=== PATIENT | female | born 1950 | race Caucasian/White ===

== ENCOUNTER → 2019-04-21 15:39 | Outpatient (CLI) | payer MEDICARE, SELFPAY ==
--- NOTE | 2019-04-21 15:47 | CT_ITS ---
STUDY: CT ABDOMEN AND PELVIS WITH CONTRAST REASON FOR EXAM: Female, 68 years old. Possible bladder mass. RADIATION DOSAGE (If Supplied By Facility): CTDIvol = ( 16.73 ) mGy, DLP = ( 1781.39 ) mGycm TECHNIQUE: Transaxial images were obtained from the dome of the diaphragm to the symphysis pubis without oral contrast. 100 IV Isovue 300 was administered. Sagittal and coronal images were reconstructed. Individualized dose optimization techniques were used for this CT. COMPARISON: April 12, 2019 FINDINGS: The visualized lung bases are unremarkable. The visualized portions of the heart are within normal limits. Normal liver. Normal gallbladder and extrahepatic biliary system. Normal spleen. Normal pancreas. There is a 2.5 cm round low attenuation left adrenal nodule that has a Hounsfield units of 8 on the nonenhanced images. There is persistent right sided hydroureteronephrosis with delayed excretion of the right kidney. There is a 3.3 x 4.8 x 3.6 cm high attenuation filling defect within the posterior urinary bladder right of midline. There are associated nodular enhancing filling defect within the urinary bladder. There is bladder wall thickening. There is stranding within the fat anterior to the urinary bladder. There is left-sided hydroureteronephrosis, less pronounced in the right. There is a right renal cyst. Normal visualized stomach. Normal small intestine. Normal colon. There is non-visualization of the appendix. There are peripheral calcifications of the abdominal aorta consistent with atherosclerosis. Normal inferior vena cava. There are prominent and borderline enlarged retroperitoneal lymph nodes. Normal urinary bladder. Normal abdominal wall. There are diffuse degenerative changes of the visualized lumbar spine. CT/Abdomen/Pelvis W IV Cont ONLY IMPRESSION: Rounded filling defect within the posterior urinary bladder right of midline highly suspicious for an underlying malignancy associated with right-sided hydroureteronephrosis and less pronounced left hydroureteronephrosis. Prominent and enlarged retroperitoneal lymph nodes, may be reactive however neoplastic process cannot be entirely excluded. Atherosclerosis. Prominent left adrenal gland, may be secondary to an underlying adrenal adenoma however underlying neoplastic involvement cannot be entirely excluded Electronically Signed: Renuka Rossi MD at 16:52 EDT Tel , Service support ,
[2019-04-21 16:15] LABS: CREATININE FINGERSTICK 1.2 mg/dL (0.55-1.02)
== END ==
LOC: CT 15:45
PROVIDERS: Family Provider Family Medicine; PCP Family Medicine; Referring Provider Urology; Visit Provider Urology
DX: D41.4 Neoplasm of uncertain behavior of bladder (principal)
CPT/HCPCS: 74177; Q9967; A4216

== ENCOUNTER 2019-04-23 05:49 | Day surgery (SDC) | payer MEDICARE, SELFPAY ==
[2019-04-23 07:11] VITALS: BP 148/70; PULSE 87; RESP 18; TEMP 36.1; O2SAT 97; BMI 76.1
[2019-04-23] MEDS: Lactated Ringers 1,000 ML 100 ML IV (07:39)
[2019-04-23 07:52] VITALS: BMI 34.5
--- NOTE | 2019-04-23 08:52 | EKG12_ITS ---
Test Reason : PRE OP Blood Pressure : / mmHG Vent. Rate : 075 BPM Atrial Rate : 075 BPM P-R Int : 164 ms QRS Dur : 150 ms QT Int : 456 ms P-R-T Axes : 059 092 075 degrees QTc Int : 509 ms Normal sinus rhythm Right bundle branch block Abnormal ECG Confirmed by FITO GÓMEZ, KENNY ([id number]), editorial assistant CECE HATHAWAY ([id number]) on 04/28/2019 11:17:15 AM Referred By: Stuart Marino Confirmed By:KENNY PAYTON MD
[2019-04-23 09:25] LABS: Hematocrit 35.4 % (37-47); Hemoglobin 11.3 g/dL (12.0-15.0); Mean Corp Hgb Conc 31.9 g/dL (32-36); Mean Corpuscular Hgb 28.9 pg (27.0-32.0); Mean Corpuscular Volume 90.5 fL (81-99); Mean Platelet Vol. 9.4 fl (6.2-12.0); Platelet Count 219 K/mm3 (150-450); RBC Distribution Width CV 14.6 % (11.6-14.6); RBC Distribution Width SD 48.2 fl (35.1-43.9); Red Blood Count 3.91 M/mm3 (4.2-5.4); White Blood Count 11.3 K/mm3 (4.4-11.0)
[2019-04-23 09:57] LABS: ALB/GLOB Ratio 0.5 RATIO (0.9-2.4); AST(SGOT) 10 U/L (15-37); Alanine Aminotransfer ALT/SGPT 8 U/L (13-56); Albumin, Serum 2.5 g/dL (3.2-5.0); Alkaline Phosphatase 78 U/L (45-117); Anion Gap 8 (5-15); BUN 11 mg/dL (7-18); BUN/Creat Ratio 9.8 RATIO (10-20); Calcium,Total 8.4 mg/dL (8.5-10.1); Chloride 109 mmol/L (98-107); Creatinine, Serum 1.12 mg/dL (0.55-1.02); EST Glomerular Filtration Rate 51 mL/min (>60); Est Glom Filt Rate - Afr Amer 62 mL/min (>60); Estimated Creatinine Clearance 58.05 ml/min; Globulin 5.1 g/dL (2.2-4.2); Glucose 108 mg/dL (74-106); Potassium 3.4 mmol/L (3.5-5.1); Protein, Total 7.6 g/dL (6.4-8.2); Sodium Level 141 mmol/L (136-145)
--- NOTE | 2019-04-23 12:00 | BLB_PTH ---
PATIENT: XOCHITL [place]ORENO [place] [facility] [id number] AGE/SX: 68/F ROOM: RE04/23/[address]: Dr. Stuart Marino MD : 1950 BED: DIS: 04/23/2019 SPEC #: [id number] RECD: 04/23/19 14:17 STATUS: NATALY REErica #: [id number] KEEGAN: 04/23/19 12:[address]: Stuart Marino DEPT: SURGICAL PATHOLOGY RECD BY: Moose Rasheed ENTERED: 04/26/19 12:09 SP TYPE: TURB OTHR DR: Dr. José Miguel Guajardo, DO Tissues: Urinary bladder, NOS Procedures: Surgery Specimen Level V HEADER OPERATION: Cyst, TUR bladder, Olympus PRE-OP DIAGNOSIS: Neoplasm of bladder; gross hematuria TISSUE SUBMITTED: Bladder resection MICROSCOPIC DIAGNOSIS Bladder tumor, TUR: Papillary urothelial carcinoma with focal necrosis. See cancer summary below. SJ:desi 04/27/19 BLADDER CANCER (TUR) SUMMARY: Procedure - TURBT Histologic type - urothelial (transitional cell) carcinoma Associated epithelial lesions - none identified Histologic grade - urothelial carcinoma (WHO 2004/ISUP) - high grade (3/3) Tumor configuration - papillary Adequacy of material for determining muscularis propria invasion - muscularis propria (detrusor muscle) is not identified. Lymph-Vascular invasion - not identified Microscopic extent of tumor - tumor invades subepithelial connective tissue (lamina propria). Additional pathologic findings - Focal tumor necrosis. The above summary is in compliance with [employer] [place] [employer] (CAP) Cancer Protocols Checklist and [place] Joint Committee on Cancer (AJCC), Staging Manual, 8th Ed. COMMENT Case has been reviewed in consultation with Dr. Huynh who concurs with the above diagnosis. IDC:AM MICROSCOPIC DESCRIPTION Slides are reviewed. GROSS DESCRIPTION Received in fixative is one container labeled with the patient's name and designated bladder resection. The specimen consists of multiple irregular fragments of de guzman-brown soft tissue that in aggregate measure 3 x 2.5 x 0.3 cm. The entire specimen is submitted in one cassette. / PRAFUL:desi 04/26/19 TC:0 CPT: 44278
[2019-04-23] MEDS: Cefazolin 2 GM in 0.9% Normal Saline 100 ML IV (12:05)
--- NOTE | 2019-04-23 12:34 | PCM.DC.URO ---
Discharge Diet: Light diet - advance as tolerated Discharge Activity: Return to Normal Activity Call your doctor if your incision/area has: Sudden Increased Bleeding Call your doctor if you observe: Fever of 101 or Higher Suture Line Care: Avoid Pulling/Pushing, Avoid Pinching/Bending Allergies/Adverse Reactions: Allergies Penicillins Allergy (Verified 04/22/19 12:12) Unknown Medications to take at Discharge Acetaminophen [Tylenol Extra Strength] 500 - 1,000 mg PO Q6H PRN PRN 04/22/19 Albuterol Inhaler [Ventolin Hfa (SP)] 1 - 2 puff INHALATION Q4H PRN PRN 04/22/19 Dextroamphetamine/Amphetamine [Dextroamp-Amphetamin 15 mg Tab] 15 mg PO TID 04/22/19 Ergocalciferol [Vitamin D] 50,000 unit PO Q7D 04/22/19 Furosemide [Lasix] 40 mg PO PRN PRN 04/22/19 [place]-3 Fatty Acids/Fish Oil [Fish Oil 1,000 mg Capsule] 1 ea PO DAILY 04/22/19 traMADol [Ultram (G)] 100 mg PO BID 04/22/19 Ciprofloxacin [Cipro] 500 mg PO BID #6 tab 04/23/19 Oxycodone HCl/Acetaminophen [Percocet 5/325] 1 tab PO Q4H PRN PRN #20 tab 04/23/19 The following prescriptions were given: Ciprofloxacin [Cipro] 500 mg PO BID #6 tab Prescription Printed Oxycodone HCl/Acetaminophen [Percocet 5/325] 1 tab PO Q4H PRN PRN #20 tab PRN Reason: Pain Prescription Printed Primary Care Physician: José Miguel Guajardo DO [Primary Care Provider] - Test Results: Test results from this visit will be discussed in further detail at your follow-up appointment, if applicable. Please Follow Up With: Stuart Marino MD When: in 2 weeks, please call to make an appointment.
--- NOTE | 2019-04-23 12:36 | PCM.OPRPT ---
Report of Operation Date of Procedure: 04/23/19 Pre-Operative Diagnosis: Large bladder mass suspected bladder cancer Post-Operative Diagnosis: Same Surgery/Procedure Performed:: Transurethral resection of a very large bladder mass Description of Surgical Findings:: 68-year-old female with a history of gross bleeding and pain in the bladder and incontinence for the past month if not longer she presents to the office for a evaluation cystoscopy evaluation in the bladder demonstrated a large mass we did a CAT scan demonstrated a large mass appears to be invasive today we will do a cystoscopy transurethral resection establish diagnosis I think eventually she is going to need more definitive treatment such as a radical cystectomy for treatment of his bladder cancer this is what I suspect she has today we will do a resection to establish diagnosis. 68-year-old female taken back to the operating room after smooth induction of general anesthesia she was placed in dorsolithotomy position went into the bladder with a 26 [place]bourg[place] continuous-flow resectoscope immediately entering the bladder there was a large mass that was protruding right into the way of the bladder there was occupying the entire lumen of the bladder was this mass I resected deep bites into the mass and sent off this for tissue specimen and then I cauterized the resection site to get the bleeding to stop as much as possible. Then after resection of the mass was done certainly was not a complete resection I suspect she is getting more definitive the treatment. I emptied the bladder and taken back to PACU in good condition she will follow-up next week to review the pathology. Despite need to work-up further for the bone scan to evaluate the bones. Type of Anesthesia:: General - Admit VTE Documentation VTE Present on Admission: No VTE Mechan Device Prophylaxis: SCD's
[2019-04-23 12:41] VITALS: BP 141/68; BP 148/70; PULSE 82; RESP 18; TEMP 36.8; O2SAT 92
[2019-04-23 12:45] VITALS: BP 141/66; BP 148/70; PULSE 81; RESP 18; O2SAT 98
[2019-04-23 13:00] VITALS: BP 148/66; BP 148/70; PULSE 72; RESP 18; O2SAT 94
[2019-04-23 13:08] VITALS: BP 134/65; BP 148/70; PULSE 72; RESP 18; TEMP 36.7; O2SAT 96
[2019-04-23 14:12] VITALS: BP 148/70; BP 159/72; PULSE 78; RESP 18; TEMP 36.8; O2SAT 95
== END 2019-04-23 14:14 | disposition home or self-care (01) ==
LOC: SDC 06:47 → AC 06:52
PROVIDERS: Family Provider Family Medicine; PCP Family Medicine; Referring Provider Urology; Visit Provider Urology
PROC: 0TBB8ZZ Excision of Bladder, Via Natural or Artificial Opening Endoscopic (ICD-10-PCS; CPT 52240; principal; 2019-04-23 11:50)
DX: C67.9 Malignant neoplasm of bladder, unspecified (principal); N32.89 Other specified disorders of bladder; N13.39 Other hydronephrosis; R31.0 Gross hematuria; E78.00 Pure hypercholesterolemia, unspecified; G47.419 Narcolepsy without cataplexy; J44.9 Chronic obstructive pulmonary disease, unspecified; J45.998 Other asthma; F17.200 Nicotine dependence, unspecified, uncomplicated; Z79.899 Other long term (current) drug therapy
CPT/HCPCS: 00912; 52240; 80053; 85027; 86850; 86900; 86901; 88307; 93005; J7120; J2405

== ENCOUNTER → 2019-04-27 08:15 | Outpatient (CLI) | payer MEDICARE, SELFPAY ==
[2019-04-23 07:52] VITALS: BMI 34.5
--- NOTE | 2019-04-27 08:24 | NM_ITS ---
CLINICAL: 68-year-old female with reported history of primary uterine and bladder carcinoma. WHOLE BODY 99m Tc MDP RADIONUCLIDE BONE SCINTIGRAPHY COMPARISON: CT of the abdomen-pelvis report 04/21/2019 FINDINGS: Following the intravenous administration of 24.8 mCi of 99m Tc MDP, whole body bone images reveal: 1. Increased radiopharmaceutical concentration is identified in the medial tibial and to lesser extent medial femoral compartments of both knees, the bilateral hands, dorsal medial compartment of the right ankle, right-left midfoot. 2. The remaining skeletal structures are scintigraphically unremarkable with normal-appearing renal images and urinary bladder activity identified. NM/Bone Scan Whole Body IMPRESSION: 1. The increase in radiopharmaceutical concentration identified in the bilateral knees, right and left hands, right ankle, midfoot bilaterally is most consistent with degenerative arthritis. 2. There is no definitive typical scintigraphic evidence of diffuse axial skeletal metastatic disease on the current examination. Electronically Signed: Mitchell Rodriguez DO at 23:09 EDT Tel , Service support ,
== END ==
LOC: NM 08:16
PROVIDERS: Family Provider Family Medicine; PCP Family Medicine; Referring Provider Urology; Visit Provider Urology
DX: C67.9 Malignant neoplasm of bladder, unspecified (principal); C55 Malignant neoplasm of uterus, part unspecified
CPT/HCPCS: 78306

== ENCOUNTER 2019-05-10 13:31 | Day surgery (SDC) | payer MEDICARE, SELFPAY ==
[2019-05-05 08:54] VITALS: BMI 46.0
[2019-05-05 09:47] VITALS: BMI 46.0
[2019-05-10] VITALS (8 sets, daily range): BP systolic 98–159; BP diastolic 62–73; PULSE 69–76; RESP 15–16; TEMP 35.9–36.4; O2SAT 90–100; BMI 46.3
[2019-05-10] MEDS: Lactated Ringers 1,000 ML 100 ML IV (14:02)
--- NOTE | 2019-05-10 14:44 | HP.PCM_ITS ---
Problem List (1) Encounter for adjustment and management of vascular access device Status: Acute Comment: >5cm 04/23/19 History and Physical Date of Admission: 05/10/19 Intake Vital Signs 05/05/19 Body Mass Index (BMI) 46.0 05/05/19 Height 4 ft 11 in 05/05/19 Weight: 235 lb 6 oz 05/05/19 Body Mass Index (BMI) 47.5 05/05/19 Blood Pressure 181/73 H 05/05/19 Blood Pressure Location Lt brachial 05/05/19 Blood Pressure Position Standing 05/05/19 Respiratory Rate 22 H 05/05/19 Pulse Rate 89 05/05/19 Temperature 98.0 F 05/05/19 Temperature Source Oral 05/05/19 Pulse Ox 98 Intake Visit Reasons: Port Placement Chief Complaint: port consult Color Paste Mixing 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 Required: No Is patient in pain?: No Allergies Penicillins Allergy (Mild, Verified 05/05/19 08:53) rash Medications Acetaminophen [Tylenol Extra Strength] 500 - 1,000 mg PO Q6H PRN PRN 04/22/19 [History Confirmed 05/05/19] Albuterol Inhaler [Ventolin Hfa (SP)] 1 - 2 puff INHALATION Q4H PRN PRN 04/22/19 [History Confirmed 05/05/19] Dextroamphetamine/Amphetamine [Dextroamp-Amphetamin 15 mg Tab] 15 mg PO TID 04/22/19 [History Confirmed 05/05/19] Ergocalciferol [Vitamin D] 50,000 unit PO Q7D 04/22/19 [History Confirmed 05/05/19] Furosemide [Lasix] 40 mg PO PRN PRN 04/22/19 [History Confirmed 05/05/19] [place]-3 Fatty Acids/Fish Oil [Fish Oil 1,000 mg Capsule] 1 ea PO DAILY 04/22/19 [History Confirmed 05/05/19] traMADol [Ultram (G)] 100 mg PO BID 04/22/19 [History Confirmed 05/05/19] Ciprofloxacin [Cipro] 500 mg PO BID #20 tab 05/03/19 [Rx Confirmed 05/05/19] Oxycodone HCl/Acetaminophen [Percocet 5-325] 1 tab PO Q4H PRN PRN #60 tab 05/03/19 [Rx Confirmed 05/05/19] Is last menstrual period known: No Post menopausal: Yes Patient : No PFSH Medical History (Updated 05/05/19 @ 08:35 by Seble Kaur) Bladder mass (Acute) Gross hematuria (Acute) Other asthma (Acute) Other hydronephrosis (Acute) Smoking history (Acute) Urothelial carcinoma of bladder (Acute ~03/2019) Uterine cancer (Acute) COPD (chronic obstructive pulmonary disease) (Chronic) Surgical History (Updated 05/05/19 @ 08:35 by Seble Kaur) History of cystoscopy (Acute) History of hysterectomy (Acute) History of throat surgery (Acute) Transurethral resection of bladder tumor (Acute) Family History Brother Heart disease Aneurysm Mother Heart disease Cancer Father Cancer Social History (Updated 05/05/19 @ 09:23 by Danie Pacheco MD) Smoking Status: Current every day smoker HPI HPI HPI: XOCHITL TREVINO, is a 68 F who presents to the office today for HPI HPI HPI: XOCHITL TREVINO, is a 68 F who presents to the office today for chest port consult. Patient has bladder cancer needs chest port for chemotherapy. ROS General General: No weight change or fatigue Cardio Cardiovascular: No murmur, pacemaker, heart disease, atrial fibrillation, high blood pressure, heart attack, heart stent, palpitations, shortness of breat with exertion or chest pain Psych Psychiatric: No depression or anxiety Resp Respiratory: No shortness of breath, No sleep apnea, No cough, No COPD, No asth ma, No emphysema, No wheezing Gastro Gastrointestinal: No abdominal pain, No nausea or vomiting, No diarrhea, No constipation, No blood in stool, No acid reflux, No hemorrhoids, No ulcers, No gallbladder problem, No black,tarry stools [place] Hematologic: No blood thinners Exam Const General: cooperative Orientation: alert, oriented x3 Resp Effort & Inspection: normal respiratory effort Auscultation: clear to auscultation bilaterally Cardio Rate: regular rate Rhythm: regular rhythm Heart Sounds: no murmurs GI Inspection: non-distended Palpation: soft, nontender Assessment & Plan Problems 1. Malignant neoplasm of urinary bladder, unspecified site C67.9 2. Encounter for insertion of venous access port Z45.2 Plan The patient is requiring chest port for chemotherapy. I described chest port placement to the patient in detail. I described the risks including but not limited to bleeding, infection, pneumothorax, line infection, DVT. Patient understands risks and is willing to proceed with port placement. Danie Pacheco MD Pager: [facility] [address] [place] [address], [address] [place] [phone] Office:
--- NOTE | 2019-05-10 15:57 | PCM.DC.POR ---
Discharge Diet: No Restrictions - Pain medication may cause nausea. You should typically eat light foods as you take your pain medication. Discharge Activity: Return to Normal Activity, May Not Shower - with port accessed. May shower after needle removed after treatment Call your doctor if your incision/area has: Continuous Slow Oozing, Sudden Increased Bleeding, Increased Pain/ Swelling, Increased Redness Call your doctor if you observe: Fever of 101 or Higher Remove Dressing in (days):: 3 - When you remove the bandage, leave the steri-strips intact until they fall off. Allergies/Adverse Reactions: Allergies Penicillins Allergy (Mild, Verified 05/10/19 13:43) rash Medications to take at Discharge Acetaminophen [Tylenol Extra Strength] 500 - 1,000 mg PO Q6H PRN PRN 04/22/19 Albuterol Inhaler [Ventolin Hfa (SP)] 1 - 2 puff INHALATION Q4H PRN PRN 04/22/19 Dextroamphetamine/Amphetamine [Dextroamp-Amphetamin 15 mg Tab] 15 mg PO TID 04/22/19 Ergocalciferol [Vitamin D] 50,000 unit PO Q7D 04/22/19 Furosemide [Lasix] 40 mg PO PRN PRN 04/22/19 [place]-3 Fatty Acids/Fish Oil [Fish Oil 1,000 mg Capsule] 1 ea PO DAILY 04/22/19 traMADol [Ultram (G)] 100 mg PO BID 04/22/19 Ciprofloxacin [Cipro] 500 mg PO BID #20 tab 05/03/19 Lidocaine/Prilocaine [Lidocaine-Prilocaine Cream] 1 applicatio TP DAILY PRN PRN 30 Days #1 tube 05/05/19 Ondansetron [Ondansetron Odt] 8 mg PO Q8H PRN PRN 10 Days #30 tab.rapdis 05/05/19 Primary Care Physician: José Miguel Guajardo DO [Primary Care Provider] - Test Results: Test results from this visit will be discussed in further detail at your follow-up appointment, if applicable. Please Follow Up With: Danie Pacheco MD When: Please call to schedule 2 week follow up appointment. [phone]
--- NOTE | 2019-05-10 15:59 | PCM.OPRPT ---
Problem List (1) Encounter for adjustment and management of vascular access device Status: Acute Comment: >5cm 04/23/19 Report of Operation Date of Procedure: 05/10/19 Pre-Operative Diagnosis: Need for vascular access. Bladder cancer Post-Operative Diagnosis: Same Surgery/Procedure Performed:: Ultrasound and fluoroscopy guided right chest port placement utilizing right IJ Description of Procedure: After obtaining informed consent patient was brought back to the operating room MAC anesthesia was induced and the right chest and neck were prepped in normal sterile fashion. Ultrasound was used to evaluate both IJs and the right IJ was selected. Next, using a needle, the right IJ was accessed and a guidewire was passed on into the superior vena cava under fluoroscopy guidance. A small incision was made over the puncture site and the dilator introducer was placed over the guidewire. Next this was capped and the pocket was made for the port. 1% lidocaine with epinephrine was injected in the proposed port site. An incision was made with scalpel. Electrocautery was used to make a pocket under the skin and subcutaneous tissue. Hemostasis was obtained. Next, the catheter was tunneled up to the neck incision site and placed through the introducer. The peel-away introducer was removed and the position of the catheter was confirmed on fluoroscopy. Next, the catheter was trimmed and attached to the port with the locking device. Interrupted 2-0 Vicryl sutures were used to anchor the port to the chest wall and then the port was placed inside the pocket. The pocket was then flushed with saline and the port irrigated with saline. There was good blood return and the port flushed easily. Next, heparin was injected into the port. The skin was closed with subcutaneous interrupted 3-0 Vicryl sutures. A single 3-0 Vicryl sutures placed under the skin at the neck incision site. Steri-Strips were placed as well as op sites. Patient tolerated procedure well, was taken to PACU in stable condition. Chest x-ray will be obtained. Grafts/Implants Used: 8 [place] [employer] - Admit VTE Documentation VTE Mechan Device Prophylaxis: SCD's
--- NOTE | 2019-05-10 16:11 | RAD_ITS ---
STUDY: X-RAY CHEST REASON FOR EXAM: Female, 68 years old. Port placement TECHNIQUE: Frontal view of the chest was performed COMPARISON: 10 May 2019 earlier same day FINDINGS: Infusion port is present in the right upper chest entering through the jugular vein anteromedially with its tip in the lower SVC. The lungs are clear and expanded. There is no demonstrated pleural abnormality. Normal size heart. Normal mediastinum and yaw. Normal visualized pulmonary arteries. Normal visualized aortic arch and descending thoracic aorta. Normal visualized thoracic spine. Normal visualized ribs, clavicles, and shoulders. There is no demonstrated abnormality of the visualized soft tissue structures of the upper abdomen. RAD/CXR for Line Placement IMPRESSION: Normal x-ray examination of the chest. No acute findings. Expected appearance of vascular infusion port in the right upper chest. Electronically Signed: Jimy Maynard, at 16:40 EDT Tel , Service support ,
== END 2019-05-10 17:04 | disposition home or self-care (01) ==
LOC: SDC 13:35 → AC 13:35
PROVIDERS: Family Provider Family Medicine; PCP Family Medicine; Referring Provider Surgery; Visit Provider Surgery
PROC: (CPT 36561; principal; 2019-05-10 15:00)
DX: Z45.2 Encounter for adjustment and management of vascular access device (principal); C67.9 Malignant neoplasm of bladder, unspecified; J44.9 Chronic obstructive pulmonary disease, unspecified; J45.998 Other asthma; G47.419 Narcolepsy without cataplexy; F17.200 Nicotine dependence, unspecified, uncomplicated; Z85.41 Personal history of malignant neoplasm of cervix uteri; Z79.899 Other long term (current) drug therapy
CPT/HCPCS: 00532; 36561; 71045; 77001; 78815; A9552; J7120; C1788

== ENCOUNTER 2019-05-13 16:40 | Emergency (ER) | payer MEDICARE, SELFPAY ==
[2019-05-11 09:01] VITALS: BMI 45.5
[2019-05-13 16:41] VITALS: BP 164/86; PULSE 84; RESP 17; TEMP 36.8; O2SAT 92; BMI 47.5
[2019-05-13 17:46] LABS: Absolute Neutrophil Count 12.6 X10^3/uL (2.0-7.7); Basophil# 0.01 X10^3/uL; Basophil% 0.1 % (0-1); Eosinophil# 0.13 X10^3/uL; Hemoglobin 10.7 g/dL (12.0-15.0); Lymphocyte % 5.1 % (19-41); Mean Corp Hgb Conc 32.4 g/dL (32-36); Mean Corpuscular Hgb 29.7 pg (27.0-32.0); Mean Corpuscular Volume 91.7 fL (81-99); Monocyte# 0.09 X10^3/uL; Monocyte% 0.7 % (0-10); NRBC Flagged by Analyzer 0 % (0-5); Neutrophil # 12.64 X10^3/uL (2.7-7.7); Neutrophil % 92.3 % (47-70); Platelet Count 236 K/mm3 (150-450); RBC Distribution Width CV 14.4 % (11.6-14.6); RBC Distribution Width SD 48.5 fl (35.1-43.9); White Blood Count 13.7 K/mm3 (4.4-11.0)
[2019-05-13 18:09] LABS: ALB/GLOB Ratio 0.6 RATIO (0.9-2.4); AST(SGOT) 22 U/L (15-37); Alanine Aminotransfer ALT/SGPT 13 U/L (13-56); Albumin, Serum 2.6 g/dL (3.2-5.0); Alkaline Phosphatase 65 U/L (45-117); Anion Gap 8 (5-15); BUN 38 mg/dL (7-18); BUN/Creat Ratio 20.9 RATIO (10-20); Calcium,Total 8.7 mg/dL (8.5-10.1); Chloride 104 mmol/L (98-107); Creatinine, Serum 1.82 mg/dL (0.55-1.02); EST Glomerular Filtration Rate 29 mL/min (>60); Est Glom Filt Rate - Afr Amer 35 mL/min (>60); Estimated Creatinine Clearance 49.14 ml/min; Globulin 4.7 g/dL (2.2-4.2); Glucose 95 mg/dL (74-106); Protein, Total 7.3 g/dL (6.4-8.2); Sodium Level 136 mmol/L (136-145)
[2019-05-13 18:13] LABS: Lactic Acid 1.8 mmol/L (0.4-2.0)
[2019-05-13 18:41] VITALS: RESP 14
[2019-05-13] MEDS: 0.9% Normal Saline 1,000 ML 125 ML IV (18:42)
--- NOTE | 2019-05-13 18:58 | CT_ITS ---
STUDY: CT ABDOMEN AND PELVIS WITHOUT CONTRAST REASON FOR EXAM: Female, 68 years old. History of bladder cancer and abdominal pain RADIATION DOSAGE (If Supplied By Facility): CTDIvol = ( 21.77 ) mGy, DLP = ( 1016.92 ) mGycm TECHNIQUE: Transaxial images were obtained from the dome of the diaphragm to the symphysis pubis without oral contrast, and without intravenous contrast. Sagittal and coronal images were reconstructed. Individualized dose optimization techniques were used for this CT. COMPARISON: CT abdomen and pelvis April 21, 2019 FINDINGS: The visualized lung bases are unremarkable. The visualized portions of the heart are within normal limits. Liver appears somewhat nodular. Normal gallbladder and extrahepatic biliary system. Normal spleen. Normal pancreas. Normal right adrenal gland. Left adrenal measures 31 x 17 mm. Moderately severe bilateral hydronephrosis. Bilateral hydroureter. No radiodense urolithiasis. There is a probable punctate phlebolith noted near the ureterovesicular junction on the right. Normal visualized stomach. Normal small intestine. Increased stool throughout the colon. Appendix identified. Scattered plaque along the aorta and its branches. Normal inferior vena cava. Normal retroperitoneum. The bladder appears mostly filled with soft tissue density similar to the previous exam although less well demonstrated without IV contrast. Normal abdominal wall. Normal osseous structures. No osteolytic or osteoblastic disease. CT/Abdomen/Pelvis without Cont IMPRESSION: Bladder mass and stable moderate bilateral hydronephrosis and hydroureter. Probable stable left adrenal adenoma. Possible cirrhosis. Sensitivity limited without IV and oral contrast. Electronically Signed: Edgard Murguia MD at 20:40 EDT , Service support ,
[2019-05-13 19:03] LABS: Bacteria 0 SEEN /hpf (None Seen); Mucous, Urine 0 SEEN /hpf (<or=2+); Red Blood Cells-Urine 0 SEEN /hpf (0-5); Squamous Epithelial Cells - UA 0 SEEN /hpf (5-10)
[2019-05-13 19:04] LABS: Color, Urine Yellow (Yellow); Glucose, Dipstick Normal (Normal); Ketone-Dipstick Negative (Negative); Leukocyte Esterase-Dipstick 500 /ul (Negative); Nitrite-Dipstick Negative (Negative); Occult Blood-Urine 250 /ul (Negative); Protein-Dipstick 100 mg/dl (Negative); Urine Bilirubin Dipstick Negative (Negative); Urine Clarity Sl. Cloudy (Clear); Urine Urobilinogen Normal (Normal)
[2019-05-13 19:17] LABS: White Blood Cells 0-5 SEEN /hpf (0-5)
[2019-05-13] MEDS: Ondansetron 4 MG/2 ML Vial IV (19:42)
[2019-05-13] MEDS: Morphine 4 MG/ML Syringe IV (19:43)
[2019-05-13 19:51] VITALS: TEMP 36.7
--- NOTE | 2019-05-13 20:56 | ED.DCSUM_ITS ---
- ER Visit Summary Date of Service: 05/13/19 Chief Complaint: [Abdominal pain] History of Present Illness: The patient is a 68 F [presents to the emergency department with abdominal pain that started this morning. Patient currently being treated for bladder cancer. Patient had her first chemotherapy 2 days ago. She denies any fevers. She does complain of dysuria and urinary frequency. She denies any nausea or vomiting. Denies any diarrhea. Patient also has history of asthma and COPD. States the discomfort is in her lower abdomen. She describes a pressure-like sensation.] Physical Examination: [HEENT-PERRLA, EOMI. Cranial nerves II through XII grossly intact. TMs clear. Mucous membranes moist. No adenopathy. Cardiovascular-regular rate and rhythm without murmur or ectopy Lungs-clear to auscultation, chest wall stable without crepitus or subcu emphysema Abdomen-normoactive bowel sounds, soft. Patient has tenderness palpation over the suprapubic region. There is no rebound, rigidity, or perineal signs. Extremities-intact ?4, normal range of motion, normal pulses, atraumatic] Test Results: [CBC with differential obtained with a slightly elevated white count of 13.7, hemoglobin 10.7, hematocrit 33, placed 236. Chemistries unremar kable. Healing was 38 g 1.82. Lactate was 1.8. LFTs were normal. Urinalysis unremarkable. CT flank showed a bladder mass with bilateral hydro-ureters which are chronic and stable adrenal adenoma as well as questionable cirrhosis.] Emergency Department Course and Treatment: [Patient was medicated with morphine and Zofran and she had good pain relief with that.] Treatment Plan: [She will be given a bottle of magnesium citrate. Patient advised to follow-up with her primary care physician 3 to 5 days. Patient to return if worsening pain, fever, vomiting, or conditions worsen anyway.] Disposition: [Discharged home in stable condition] Impression: [Abdominal pain Bladder cancer Constipation] This note was generated with [employer] dictation software. It may contain incorrect words, spelling, and punctuation that were not noted in review of the chart prior to signing ED Disposition - Plan for ED Patient: Referrals: José Miguel Guajardo DO [Primary Care Provider] -
--- NOTE | 2019-05-13 20:59 | ED.DEP ---
ED Disposition - Plan for ED Patient: Instructions: ABDOMINAL PAIN, Unknown Cause, (Female), CONSTIPATION (Adult) Referrals: José Miguel Guajardo DO [Primary Care Provider] - 3-5 Days
[2019-05-13] MEDS: Magnesium Citrate 300 ML PO (21:08)
[2019-05-13 21:11] VITALS: BP 197/69; PULSE 86; RESP 20; O2SAT 96
== END 2019-05-13 21:25 | disposition home or self-care (01) ==
LOC: ED 17:26
PROVIDERS: Emergency Provider Emergency Medicine; Family Provider Family Medicine; PCP Family Medicine
DX: R10.9 Unspecified abdominal pain (principal); C67.9 Malignant neoplasm of bladder, unspecified; K59.00 Constipation, unspecified; R30.0 Dysuria; R35.0 Frequency of micturition; J44.9 Chronic obstructive pulmonary disease, unspecified; Z79.899 Other long term (current) drug therapy
CPT/HCPCS: 74176; 80053; 81001; 83605; 85025; 87040; 87086; 87088; 96361; 96374; 96375; 99284; J7030; A4216; J2405

== ENCOUNTER 2019-06-07 20:23 | Emergency (ER) | payer MEDICARE, SELFPAY ==
[2019-06-01 08:35] VITALS: BMI 44.0
[2019-06-07 20:24] VITALS: BP 159/76; PULSE 96; RESP 18; TEMP 37.7; O2SAT 97; BMI 45.0
--- NOTE | 2019-06-07 21:27 | EKG12_ITS ---
Test Reason : DYSRYTHMIA Blood Pressure : / mmHG Vent. Rate : 081 BPM Atrial Rate : 081 BPM P-R Int : 162 ms QRS Dur : 144 ms QT Int : 408 ms P-R-T Axes : 056 095 054 degrees QTc Int : 473 ms Normal sinus rhythm Right bundle branch block Abnormal ECG Confirmed by FITO GÓMEZ, KENNY ([id number]), photograph editor CECE HATHAWAY ([id number]) on 06/09/2019 11:10:51 AM Referred By: HALEIGH Confirmed By:KENNY PAYTON MD
--- NOTE | 2019-06-07 21:30 | RAD_ITS ---
STUDY: X-RAY CHEST REASON FOR EXAM: Female, 68 years old. Fever TECHNIQUE: Frontal view of the chest COMPARISON: X-Ray Chest May 10, 2019 FINDINGS: Right chest tunneled catheter is present with the tip at the SVC. The lungs are clear. There are no pleural effusions. There is no pneumothorax. The heart is normal in size. The visualized osseous structures are within normal limits. RAD/Chest 1 View (Portable) IMPRESSION: No acute thoracic pathology. Right chest tunneled catheter with the tip at the SVC. Electronically Signed: Sudheer Higginbotham, at 21:46 EST Tel , Service support ,
[2019-06-07 22:13] VITALS: PULSE 83; RESP 23
[2019-06-07 22:19] LABS: Absolute Lymphocyte Count 1.34 X10^3/uL (0.83-4.51); Absolute Neutrophil Count 1.9 X10^3/uL (2.0-7.7); Basophil# 0.01 X10^3/uL; Basophil% 0.3 % (0-1); Eosinophil# 0.02 X10^3/uL; Eosinophils% 0.6 % (0-5); Hematocrit 26.3 % (37-47); Hemoglobin 8.3 g/dL (12.0-15.0); Lymphocyte # 1.34 X10^3/ul (4.0); Lymphocyte % 39.1 % (19-41); Mean Corp Hgb Conc 31.6 g/dL (32-36); Mean Corpuscular Hgb 29.9 pg (27.0-32.0); Mean Corpuscular Volume 94.6 fL (81-99); Mean Platelet Vol. 10.9 fl (6.2-12.0); Monocyte# 0.16 X10^3/uL; Monocyte% 4.7 % (0-10); NRBC Flagged by Analyzer 0 % (0-5); Neutrophil # 1.87 X10^3/uL (2.7-7.7); Neutrophil % 54.4 % (47-70); POSITIVE COUNT YES; Platelet Count 81 K/mm3 (150-450); RBC Distribution Width CV 16.4 % (11.6-14.6); RBC Distribution Width SD 53.6 fl (35.1-43.9); Red Blood Count 2.78 M/mm3 (4.2-5.4); White Blood Count 3.4 K/mm3 (4.4-11.0)
[2019-06-07 22:23] LABS: Differential Indicated SCAN CRITERIA MET
[2019-06-07] MEDS: Acetaminophen 500 MG Tablet 1000 MG PO (22:24)
[2019-06-07 22:25] LABS: International Normalized Ratio 1.2; Partial Thromboplast Time 31.8 Seconds (24.1-36.2); Prothrombin Time (Protime)PT. 15.1 SECONDS (11.7-14.9)
[2019-06-07 22:26] VITALS: TEMP 37.4
[2019-06-07 22:36] LABS: ALB/GLOB Ratio 0.7 RATIO (0.9-2.4); AST(SGOT) 26 U/L (15-37); Alanine Aminotransfer ALT/SGPT 19 U/L (13-56); Albumin, Serum 2.5 g/dL (3.2-5.0); Alkaline Phosphatase 66 U/L (45-117); Anion Gap 5 (5-15); BUN 19 mg/dL (7-18); BUN/Creat Ratio 24.1 RATIO (10-20); Calcium,Total 8.2 mg/dL (8.5-10.1); Chloride 108 mmol/L (98-107); Creatinine, Serum 0.79 mg/dL (0.55-1.02); EST Glomerular Filtration Rate 77 mL/min (>60); Est Glom Filt Rate - Afr Amer 93 mL/min (>60); Estimated Creatinine Clearance 84.78 ml/min; Globulin 3.8 g/dL (2.2-4.2); Glucose 102 mg/dL (74-106); Potassium 3.7 mmol/L (3.5-5.1); Protein, Total 6.3 g/dL (6.4-8.2); Sodium Level 139 mmol/L (136-145)
[2019-06-07 22:38] LABS: Lactic Acid 1.3 mmol/L (0.4-2.0)
[2019-06-07 22:44] LABS: Differential Comment SCANNED
--- NOTE | 2019-06-07 22:57 | ED.DCSUM_ITS ---
- ER Visit Summary Date of Service: 06/07/19 Chief Complaint: Fever History of Present Illness: The patient is a 68 F who presents with a fever that has been constant for the last 2 days. Patient states she also has a headache. Patient describes this as a throbbing in her head. Patient states nothing seems to make her fever better or worse. Patient states her fever at home was up to 103. Patient admits to some blurred vision. Patient also admits to a sore throat. Patient admits to some shortness of breath and cough. Patient denies any dysuria or hematuria. Patient states she has been also having some diarrhea. Patient had been on Cipro for urinary tract infection prophylaxis. Patient states this was stopped approximately 1 week ago. Physical Examination: Vital signs are stable. Patient's temperature is 100 here. Patient is in no acute distress. Oral mucosa is pink and moist. Neck is supple. Trachea is midline. There is no JVD. Heart was regular rate and rhythm. Lungs are clear and equal bilaterally. Abdomen is soft. Bowel sounds are normal. There is no tenderness. Cranial nerves II through XII are intact. There are no focal motor or sensory deficits noted. Test Results: EKG showed normal sinus rhythm with a rate of 81. There is a right bundle branch block pattern noted. This was unchanged compared to previous EKG dated 04/23/2019. CBC shows white blood cell count 3.4. Absolute neutrophil count is 1.9. Hemoglobin is 8.3 and hematocrit is 26.3. Platelets are 81. INR was normal at 1.2. PTT was normal at 31.8. Comprehensive metabolic profile was essentially within normal limits. Lactate was normal. Urinalysis was ordered however, patient was unable to provide a urine specimen here in the emergency department. Patient refused straight cath. Patient states she is chronically incontinent of urine. To provide a urine specimen. Emergency Department Course and Treatment: Patient was given Tylenol here. Patient was feeling better on reevaluation. Patient wants to go home. Case was discussed with Eunice Waite who is on-call for Dr. Stone. He recommended obtaining a C. difficile specimen as the patient is having some diarrhea and has been on Cipro. This was ordered. She also recommending having the patient follow-up tomorrow as scheduled however since her platelets are 81 she will probably not receive any treatment tomorrow. Patient understands and is agreeable with the plan. All questions were answered. Disposition: Discharge home Impression: 1. Acute febrile illness This note was generated with [employer] dictation software. It may contain incorrect words, spelling, and punctuation that were not noted in review of the chart prior to signing ED Disposition - Plan for ED Patient: Disposition: Home or Assisted Living Diagnosis: Acute febrile illness Instructions: FEBRILE ILLNESS, Uncertain Cause (Adult) Referrals: José Miguel Guajardo DO [Primary Care Provider] - Brian Stone MD [NON-STAFF] - Keep Cesar appointment
--- NOTE | 2019-06-07 22:58 | ED.RN ---
When discussed with pt that we would need a urine sample, she stated that she would not be able to give us one due to she has no control of bladder. This RN explained that we could get a urine sample via straight cath, pt refused this option. This RN made Dr. Frederick aware of this discussion. He suggested that we place pt on a bedside commode and try to check some urine in a hat. Discussed his option with the pt and she also refused, saying that will never work, I have tried that in the past and I am not waiting all night to give a urine sample. Dr. Frederick, made aware of pt's refusal.
[2019-06-07 23:05] VITALS: PULSE 91; RESP 18; O2SAT 97
[2019-06-07 23:58] VITALS: BP 139/99; PULSE 82; RESP 17; O2SAT 95
== END 2019-06-08 | disposition home or self-care (01) ==
PROVIDERS: Emergency Provider Emergency Medicine; Family Provider Family Medicine; PCP Family Medicine
DX: R50.9 Fever, unspecified (principal); J02.9 Acute pharyngitis, unspecified; R19.7 Diarrhea, unspecified; I45.10 Unspecified right bundle-branch block; R32 Unspecified urinary incontinence; R51 Headache; H53.8 Other visual disturbances; R06.02 Shortness of breath; Z72.0 Tobacco use; Z85.51 Personal history of malignant neoplasm of bladder; Z79.899 Other long term (current) drug therapy
CPT/HCPCS: 36591; 71045; 80053; 83605; 85025; 85610; 85730; 87040; 87493; 93005; 99285; A4216

== ENCOUNTER → 2019-06-14 06:45 | Outpatient (CLI) | payer MEDICARE, SELFPAY ==
[2019-06-10 13:21] VITALS: BMI 43.4
--- NOTE | 2019-06-14 06:48 | CT_ITS ---
STUDY: CT ABDOMEN AND PELVIS WITH CONTRAST REASON FOR EXAM: Female, 68 years old. Follow-up for bladder carcinoma following chemotherapy. RADIATION DOSAGE (If Supplied By Facility): CTDIvol = ( 17.07 ) mGy, DLP = ( 1821.22 ) mGycm TECHNIQUE: Transaxial images were obtained from the dome of the diaphragm to the symphysis pubis without oral contrast. IV Isovue 300 100CC was administered. Sagittal and coronal images were reconstructed. Individualized dose optimization techniques were used for this CT. COMPARISON: Comparison is made with prior examination May 13, 2019. FINDINGS: The visualized lung bases are unremarkable. Coronary artery calcification. Normal liver. Normal gallbladder and extrahepatic biliary system. Normal spleen. Normal pancreas. There is a small, circumscribed, smooth, low attenuation left adrenal mass, consistent with an adrenal adenoma. This measures 1.6 cm x 2.6 cm. This is unchanged. Normal right adrenal gland. Moderate degree of right hydronephrosis and right hydroureter down to the right ureterovesical junction. Mild degree of left hydronephrosis and left hydroureter. Normal visualized stomach. Normal small intestine. Normal colon. The appendix is visualized and appears normal. There is diffuse atherosclerotic calcification of the abdominal aorta, without a demonstrated aneurysm. Normal inferior vena cava. There is borderline retroperitoneal lymphadenopathy with enlarged nodes no greater than 10mm in the short axis diameter. The bladder is contracted. There is diffuse circumferential wall thickening with a possible mass lesion in the region of the right ureterovesical junction. Increased markings are seen in the surrounding peritoneal fat. Normal abdominal wall. There are mild degenerative changes of the visualized lumbar spine. CT/Abdomen/Pelvis WITH Contrast IMPRESSION: Moderate degree of right hydronephrosis and right hydroureter down to the right ureterovesical junction most likely send it to a mass at the right ureteral vesicle junction. There is also evidence of mild degree of left hydronephrosis. Contracted urinary bladder with diffuse circumferential wall thickening. Electronically Signed: Raheem Alvarez, at 14:25 EST , Service support ,
== END ==
LOC: CT 06:45
PROVIDERS: Family Provider Family Medicine; PCP Family Medicine; Referring Provider Nurse Practitioner Family; Visit Provider Nurse Practitioner Family
DX: C67.9 Malignant neoplasm of bladder, unspecified (principal)
CPT/HCPCS: 74177; Q9967; A4216

== ENCOUNTER → 2019-06-25 12:36 | Outpatient (CLI) | payer MEDICARE, SELFPAY ==
[2019-06-10 13:21] VITALS: BMI 43.4
[2019-06-15 08:37] VITALS: BMI 44.6
--- NOTE | 2019-06-25 12:41 | MRI_ITS ---
STUDY: MRI BRAIN WITH AND WITHOUT CONTRAST REASON FOR EXAM: Female, 68 years old. bladder CA, H/A, hx of migraines TECHNIQUE: Standardized multiplanar fat and water weighted pulse sequences were obtained. Catheter Injection Dotarem 20 was administered for the contrast portion of the examination. COMPARISON: None. FINDINGS: There is mild cerebral atrophy with widening of the extra-axial spaces and ventricular dilatation. There are a limited number of small white matter hyperintensities, distributed throughout the deep white matter tracts of the cerebral hemispheres, consistent with mild chronic white matter ischemic changes. There is no evidence for recent intracranial ischemia or other cause of cytotoxic edema on diffusion weighted imaging (DWI). Normal T2* images of the brain without demonstrated susceptibility artifact. There is no demonstrated hemosiderin stain. No demonstrated hydrocephalus. No midline shift. Normal bilateral basal ganglia. Normal thalami. There is no extra-axial fluid accumulation. Normal flow voids within the major intracranial circulation suggesting patency by spin echo criteria. Normal venous enhancement. There is no enhancing intra-axial or extra-axial abnormality. Normal sella turcica, pituitary gland, infundibular stalk, optic chiasm and hypothalamus. Normal tectal plate and pineal gland. Normal midbrain, dagmar and medulla. Normal cerebellum. Normal basal cisterns. Normal bilateral temporal bones. Normal bilateral internal auditory canals. No demonstrated orbital abnormality, within the constraints of a routine brain study. Normal visualized paranasal sinuses. Normal calvarium and skull base. Normal visualized soft tissue structures. Normal visualized upper cervical spine. MRI/Brain W/WO Contrast IMPRESSION: 1. Mild chronic microvascular ischemic changes. Electronically Signed: Raymundo Palomares MD at 18:20 EST , Service support ,
== END ==
LOC: MRI 12:38
PROVIDERS: Family Provider Family Medicine; PCP Family Medicine; Referring Provider Nurse Practitioner Family; Visit Provider Nurse Practitioner Family
DX: C67.9 Malignant neoplasm of bladder, unspecified (principal)
CPT/HCPCS: 70553; A9575; A4216

== ENCOUNTER 2019-08-26 08:58 | Emergency (ER) | payer MEDICARE, SELFPAY ==
[2019-08-02 08:16] VITALS: BMI 42.4
[2019-08-26] VITALS (12 sets, daily range): BP systolic 99–163; BP diastolic 37–92; PULSE 67–86; RESP 17–25; TEMP 36.9–37.1; O2SAT 97–100; BMI 29.7; BMI 43.2
--- NOTE | 2019-08-26 09:07 | EKG12_ITS ---
Test Reason : Blood Pressure : / mmHG Vent. Rate : 087 BPM Atrial Rate : 087 BPM P-R Int : 158 ms QRS Dur : 140 ms QT Int : 402 ms P-R-T Axes : 053 111 068 degrees QTc Int : 483 ms Normal sinus rhythm Right bundle branch block Left posterior fascicular block Bifascicular block Cannot rule out Inferior infarct , age undetermined Abnormal ECG Confirmed by SUZANNA GÓMEZ, BLAS ([id number]), editorial specialist CHERIE JORDAN ([id number]) on 08/27/2019 2:25:24 PM Referred By: José Miguel Guajardo Confirmed By:BLAS BRISENO MD
--- NOTE | 2019-08-26 09:08 | ED.DCSUM_ITS ---
History of Present Illness Chief Complaint: General Illness Detail of Chief Complaint: Weakness, dizziness Informant: Patient Onset: Today Current Severity: Mild Maximum Severity: Moderate Narrative: Patient presents with generalized weakness. She has a history of bladder cancer and had a CT scan 3 days ago that showed worsening left-sided hydronephrosis. She is scheduled to have a left-sided nephrostomy tube placed today. Patient states she was getting ready for her test and as she was walking toward the door to leave the house became very weak. She lowered herself to the ground. She did feels that she was going to pass out. She denies chest pain or palpitations. Patient is not currently on chemotherapy. - Past Medical History (1) Urothelial carcinoma of bladder Status: Chronic Past Medical History - Allergies and Home Meds Allergies/Adverse Reactions: Allergies Penicillins Allergy (Mild, Verified 08/26/19 10:42) rash Primary Care Physician: José Miguel Guajardo DO [Primary Care Provider] - Doctors: Dr Marino, Dr Stone Prior records reviewed: Yes Lives: Spouse/ Significant Other Smoking Status: Current every day smoker Review of Systems General: Denies: Chills, Fever Eyes: Denies: Visual changes - bilaterally ENT: Denies: Bilateral ear pain Cardiovascular: Denies: Chest pain, Palpitations Respiratory: Denies: Dyspnea Gastrointestinal: Reports: Abdominal pain - Chronic abdominal pain, unchanged from baseline, Nausea Musculoskeletal: Denies: Swelling, Extremity Pain Skin: Denies: Rash Neurological: Reports: Weakness Hematologic: Denies: Easy bruising Allergy: Denies: Uticaria Physical Exam Vital Signs/Narrative: Vital Signs Temp Pulse Resp BP Pulse Ox 08/26/19 08:59 98.8 F 67 18 133/81 H 97 Inital Vital Signs reviewed: Yes General: Well nourished, Well developed Head: Normocephalic ENT: Moist mucous membranes Neck: Supple Cardiovascular: Regular rate, Regular rhythm Respiratory: No distress, CTA bilaterally Abdomen: Soft, Nontender, Hypoactive bowel sounds Skin: Pallor Neurological: Alert, Oriented x3 Psychological: Normal affect Diagnostic/Tx/Re-eval Impressions Nephrostomy Tube Change 08/26/19 10:33 IMPRESSION: 1. The percutaneous right nephrostomy catheter is in good position with the pigtail portion located in the right renal pelvis. 2. Conscious sedation protocol was followed. Electronically Signed: Raheem Alvarez, at 13:22 EST , Service support , 08/26/19 10:[address] [CT] Stat Laboratory Results 08/26/19 08/26/19 08/26/19 09:25 09:25 09:25 WBC 11.9 H RBC 2.46 L Hgb 7.7 L Hct 24.7 L MCV 100.4 H MCH 31.3 MCHC 31.2 L RDW Std Deviation 65.8 H RDW Coeff of Mica 17.9 H Plt Count 158 MPV 8.9 Immature Gran % (Auto) 0.600 Neut % (Auto) 74.9 H Lymph % (Auto) 14.2 L Grundy % (Auto) 9.0 Eos % (Auto) 0.9 Baso % (Auto) 0.4 Absolute Neuts (auto) 9.0 H Absolute Lymphs (auto) 1.69 Nucleated RBC % 0 Platelet Estimate ADEQUATE Hypochromasia RARE Anisocytosis 1+ Macrocytosis RARE PT 16.9 H INR 1.4 APTT 31.5 Sodium 136 Potassium 3.8 Chloride 106 Carbon Dioxide 25.0 Anion Gap 5 BUN 8 Creatinine 0.98 Estim Creat Clear Calc 60.56 Est GFR (MDRD) Af Amer 72 Est GFR (MDRD) Non-Af 60 BUN/Creatinine Ratio 8.2 L Glucose 112 H Calcium 8.3 L Urine Color Urine Clarity Urine pH Ur Specific Fork Urine Protein Urine Glucose (UA) Urine Ketones Urine Occult Blood Urine Nitrite Urine Bilirubin Urine Urobilinogen Ur Leukocyte Esterase Urine RBC Urine WBC Ur Squamous Epith Cells Urine Bacteria Urine Mucus 08/26/19 09:40 WBC RBC Hgb Hct MCV MCH MCHC RDW Std Deviation RDW Coeff of Mica Plt Count MPV Immature Gran % (Auto) Neut % (Auto) Lymph % (Auto) Grundy % (Auto) Eos % (Auto) Baso % (Auto) Absolute Neuts (auto) Absolute Lymphs (auto) Nucleated RBC % Platelet Estimate Hypochromasia Anisocytosis Macrocytosis PT INR APTT Sodium Potassium Chloride Carbon Dioxide Anion Gap BUN Creatinine Estim Creat Clear Calc Est GFR (MDRD) Af Amer Est GFR (MDRD) Non-Af BUN/Creatinine Ratio Glucose Calcium Urine Color Yellow Urine Clarity Cloudy Urine pH 6.5 Ur Specific Fork 1.010 Urine Protein 15 H Urine Glucose (UA) Normal Urine Ketones Negative Urine Occult Blood 150 H Urine Nitrite Positive H Urine Bilirubin Negative Urine Urobilinogen 1 H Ur Leukocyte Esterase 500 H Urine RBC 0-5 SEEN Urine WBC 50-100 SEEN Ur Squamous Epith Cells 0-5 SEEN Urine Bacteria 2+ Urine Mucus RARE - EKG Initial EKG Interpretation: Sinus Rhythm - Sinus at 87 with a bifascicular block. No significant change when compared to prior study from June 2019. - Medical Decision Making Patient's labs are reviewed. She does have evidence of a UTI. She states they found this when she went to [place] recently and she is currently on Keflex. She was given a dose of Rocephin here and a urine culture was sent. Patient did go to CT and had her nephrostomy tube placed. After returning from CT patient states that she feels back to her normal baseline. She has been offered hospital admission multiple times and family members are rather insistent that she be admitted. At this time she is alert and oriented and is refusing hospital admission. She is able to get up and walk in the halls without difficulty. She was able to tolerate p.o. without difficulty. ED Disposition - Plan for ED Patient: Disposition: Home or Assisted Living Diagnosis: Weakness, UTI (urinary tract infection) Instructions: Urinary Tract Infections in Women Referrals: José Miguel Guajardo DO [Primary Care Provider] - Stuart Marino MD [STAFF PHYSICIAN] -
[2019-08-26] MEDS: 0.9% Normal Saline 1,000 ML 150 ML IV (09:27)
[2019-08-26 09:37] LABS: Absolute Lymphocyte Count 1.69 X10^3/uL (0.83-4.51); Basophil# 0.05 X10^3/uL; Basophil% 0.4 % (0-1); Differential Indicated SCAN CRITERIA MET; Eosinophil# 0.11 X10^3/uL; Eosinophils% 0.9 % (0-5); Hematocrit 24.7 % (37-47); Hemoglobin 7.7 g/dL (12.0-15.0); Lymphocyte # 1.69 X10^3/ul (4.0); Lymphocyte % 14.2 % (19-41); Mean Corp Hgb Conc 31.2 g/dL (32-36); Mean Corpuscular Hgb 31.3 pg (27.0-32.0); Mean Corpuscular Volume 100.4 fL (81-99); Mean Platelet Vol. 8.9 fl (6.2-12.0); Monocyte# 1.07 X10^3/uL; NRBC Flagged by Analyzer 0 % (0-5); Neutrophil # 8.95 X10^3/uL (2.7-7.7); Neutrophil % 74.9 % (47-70); POSITIVE MORPHOLOGY YES; Platelet Count 158 K/mm3 (150-450); RBC Distribution Width CV 17.9 % (11.6-14.6); RBC Distribution Width SD 65.8 fl (35.1-43.9); Red Blood Count 2.46 M/mm3 (4.2-5.4); White Blood Count 11.9 K/mm3 (4.4-11.0)
[2019-08-26 09:49] LABS: Anion Gap 5 (5-15); BUN 8 mg/dL (7-18); BUN/Creat Ratio 8.2 RATIO (10-20); Calcium,Total 8.3 mg/dL (8.5-10.1); Chloride 106 mmol/L (98-107); Creatinine, Serum 0.98 mg/dL (0.55-1.02); EST Glomerular Filtration Rate 60 mL/min (>60); Est Glom Filt Rate - Afr Amer 72 mL/min (>60); Estimated Creatinine Clearance 60.56 ml/min; Glucose 112 mg/dL (74-106); Potassium 3.8 mmol/L (3.5-5.1); Sodium Level 136 mmol/L (136-145)
[2019-08-26 09:58] LABS: Color, Urine Yellow (Yellow); Glucose, Dipstick Normal (Normal); Ketone-Dipstick Negative (Negative); Leukocyte Esterase-Dipstick 500 /ul (Negative); Nitrite-Dipstick Positive (Negative); Occult Blood-Urine 150 /ul (Negative); Protein-Dipstick 15 mg/dl (Negative); Urine Bilirubin Dipstick Negative (Negative); Urine Clarity Cloudy (Clear); Urine Urobilinogen 1 mg/dl (Normal); Urine pH 6.5 (5.0 - 8.0)
[2019-08-26 10:01] LABS: Platelet Estimate ADEQUATE (ADEQ)
[2019-08-26 10:02] LABS: Anisocytosis 1+; Hypochromasia RARE; Macrocytosis RARE
[2019-08-26 10:07] LABS: Red Blood Cells-Urine 0-5 SEEN /hpf (0-5); White Blood Cells 50-100 SEEN /hpf (0-5)
[2019-08-26 10:09] LABS: Bacteria 2+ /hpf (None Seen); Mucous, Urine RARE /hpf (<or=2+); Squamous Epithelial Cells - UA 0-5 SEEN /hpf (5-10)
[2019-08-26] MEDS: Ceftriaxone 1 GM/50 ML BAG IV (10:18)
--- NOTE | 2019-08-26 10:33 | CT_ITS ---
PROCEDURE: DIGITAL CT GUIDANCE DURING PERCUTANEOUS NEPHROSTOMY PROCEDURE. DATE OF EXAMINATION: August 26, 2019 INDICATION: Female, 68 years old. Right ureteral obstruction. PHYSICIAN: Raheem Alvarez M.D. CONSENT: The patient''s history and physical findings were reviewed. Prior to the procedure the percutaneous nephrostomy and attempted right ureteral stent insertion were described to the patient who then signed a consent. SEDATION: The patient received 2 mg of Versed and 50 mcg of fentanyl intravenously. Conscious sedation was started at 11:31 AM indeterminate 11:46 AM. The patient was independently monitored by the department nurse. TECHNIQUE: A 8.5 Angolan percutaneous right nephrostomy catheter was inserted under CT guidance. A loop of the pigtail catheter was formed within the right renal pelvis and locked in this position. There is dilatation of the upper collecting system and dilatation of the right ureter to the bladder. No contrast passed into the urinary bladder. A guidewire would not pass into the urinary bladder. The catheter was secured to the skin surface and covered with a sterile dressing. The catheter was attached to a drainage bag attached to the patient''s leg. CT/Nephrotube Placement CT IMPRESSION: 1. The percutaneous right nephrostomy catheter is in good position with the pigtail portion located in the right renal pelvis. 2. Conscious sedation protocol was followed. Electronically Signed: Raheem Alvarez, at 13:22 EST , Service support ,
--- NOTE | 2019-08-26 10:50 | NURSING ---
Pt taken to radiology for nephrostomy tube placement by Chelsea SMITH
[2019-08-26] MEDS: Midazolam 2 MG/2 ML Syringe IV (11:31)
[2019-08-26] MEDS: fentaNYL 100 MCG/2 ML Ampul IV (11:33)
[2019-08-26 11:46] LABS: International Normalized Ratio 1.4; Partial Thromboplast Time 31.5 Seconds (24.1-36.2); Prothrombin Time (Protime)PT. 16.9 SECONDS (11.7-14.9)
--- NOTE | 2019-08-26 13:35 | NURSING ---
Pt's family (daughter and ) insistent that pt be admitted to hospital d/t weakness, poor oral intake, and inability to ambulate. Pt refusing admission and wanting to return home. Pt's verbally aggressive to staff regarding this. Yeni RN at bedside questioned pt whether or not she is feeling better than arrival, to which she replied I feel better...I wouldn't go home if I felt that bad. Pt recovered from procedural sedation post- nephrostomy tube placement and assisted to walk the halls to assist strength prior to discharge. Pt sat up in bed and stood/walked without assistance. Pt walked down the nunez of ER to room 7 and back to bed. Pt states she feels physically able to return home. Pt also agreeable to try PO intake (applesauce) to she how she tolerates eating prior to returning home. Pt daughter and other female family member at bedside and verbalize understanding.
== END 2019-08-26 14:45 | disposition home or self-care (01) ==
PROVIDERS: Emergency Provider Emergency Medicine; PCP Family Medicine; Referring Provider Family Medicine
DX: N39.0 Urinary tract infection, site not specified (principal); T83.092A Other mechanical complication of nephrostomy catheter, initial encounter; C67.8 Malignant neoplasm of overlapping sites of bladder; N13.39 Other hydronephrosis; R53.1 Weakness; F17.200 Nicotine dependence, unspecified, uncomplicated; J44.9 Chronic obstructive pulmonary disease, unspecified; J45.998 Other asthma; E66.9 Obesity, unspecified; Z68.34 Body mass index [BMI] 34.0-34.9, adult; Z85.42 Personal history of malignant neoplasm of other parts of uterus
CPT/HCPCS: 36591; 50432; 80048; 81001; 85025; 85610; 85730; 87086; 93005; 96361; 96365; 96375; 99156; 99285; A4216

== ENCOUNTER → 2019-09-15 | Outpatient (CLI) | payer MEDICARE, SELFPAY ==
[2019-08-26 10:35] VITALS: BMI 43.2
== END | disposition home or self-care (01) ==
LOC: MEDOUTP 09-21 09:21
PROVIDERS: PCP Family Medicine; Referring Provider Urology; Visit Provider Urology
DX: Z46.6 Encounter for fitting and adjustment of urinary device (principal)

== ENCOUNTER → 2019-11-23 14:51 | Outpatient (CLI) | payer MEDICARE, SELFPAY ==
[2019-08-26 10:35] VITALS: BMI 43.2
--- NOTE | 2019-11-23 14:56 | ECHOD_ITS ---
Reason For Study: CHF Procedure This was a 2D Doppler, Color Flow transthoracic echocardiogram. Myocardial strain analysis was performed in this exam to aid in the assessment of cardiac function. The study was technically difficult. Poor parasternal window. Exam performed in department. Left Ventricle Normal LV size. Mild segmental systolic dysfunction (see wall motion). The estimated ejection fraction is 45 %. The global longitudinal strain = -14% (abnormal). Diastolic function is indeterminate. Anterio-Basal: Hypokinetic. Posterior-Basal: Hypokinetic. Infero-Basal: Hypokinetic. Mid-Anterior : Hypokinetic. Mid-Lateral : Hypokinetic. Mid-Posterior: Hypokinetic. Mid-Inferior: Hypokinetic. Anterior [place] : Hypokinetic. Inferior [place] : Hypokinetic. Lateral [place] : Hypokinetic. Right Ventricle Normal RV size. Normal systolic function. Atria Normal left atrium. Normal right atrium. No doppler evidence for ASD. Mitral Valve There is no mitral annular calcification. Normal mitral valve. Trivial mitral valve insufficiency. Tricuspid Valve Normal tricuspid valve. Trivial tricuspid valve insufficiency. Unable to estimate RV systolic pressure/pulmonary artery pressure due to technically difficult study. Aortic Valve Trisinus/trileaflet aortic valve. Mild focal aortic valve calcification. Pulmonic Valve The pulmonic valve is not well visualized. Great Vessels Normal sized aortic root. Pericardium/Pleural Trivial pericardial effusion. There are no echocardiographic indications of cardiac tamponade. MMode/2D Measurements & Calculations LVIDd: 4.6 cm IVSd: 0.75 cm Ao root diam: 3.2 cm LVIDs: 3.4 cm LVPWd: 0.82 cm RVDd: 2.4 cm FS: 25.4 % LAV(MOD-bp): 42.5 ml LVAd ap4: 20.7 cm2 SV(MOD-sp4): 22.1 ml LAV(MOD-bp) Indexed: 24.5 ml/m2 EDV(MOD-sp4): 49.4 ml LAV(MOD-sp2): 51.3 ml EDV(sp4-el): 51.0 ml LAV(MOD-sp4): 34.2 ml LVAs ap4: 14.0 cm2 ESV(MOD-sp4): 27.4 ml ESV(sp4-el): 26.9 ml EF(MOD-sp4): 44.6 % EF(sp4-el): 47.2 % SV(sp4-el): 24.1 ml LA A4 area: 14.4 cm2 LA dimension(2D): 2.6 cm RA A4 area: 10.2 cm2 Time Measurements MV dec time: 0.26 sec Doppler Measurements & Calculations MV E max melecio: 62.0 cm/sec Lat Peak E' Melecio: 7.9 cm/sec Med Peak E' Melecio: 3.8 cm/sec MV A max melecio: 104.3 cm/sec E/E' lat: 7.8 E/E' med: 16.3 MV E/A: 0.59 Ao V2 max: 105.7 cm/sec LV V1 max: 89.3 cm/sec Ao max P.5 mmHg LV V1 max P.2 mmHg Interpretation Summary The study was technically difficult. Mild segmental systolic dysfunction (see wall motion). The estimated ejection fraction is 45 %. The global longitudinal strain = -14% (abnormal). Trivial mitral valve insufficiency. Trivial tricuspid valve insufficiency. Mild focal aortic valve calcification. Trivial pericardial effusion. There are no echocardiographic indications of cardiac tamponade. Unable to estimate RV systolic pressure/pulmonary artery pressure due to technically difficult study. Diastolic function is indeterminate. Ordering Physician: Willy Echevarria Referring Physician: PARMINDER LOFTON Performed By: Mahnaz Laguna, JANNCS, RVT
== END ==
LOC: CVS 14:53
PROVIDERS: PCP Family Medicine; Visit Provider Student in an Organized Health Care Education/Training Program
DX: J90 Pleural effusion, not elsewhere classified (principal); R60.0 Localized edema
CPT/HCPCS: 93306

== ENCOUNTER → 2019-11-30 14:30 | Outpatient (CLI) | payer MEDICARE, SELFPAY ==
[2019-11-30 15:35] VITALS: BMI 43.2
[2019-11-30 16:03] LABS: Absolute Lymphocyte Count 2.47 X10^3/uL (0.83-4.51); Absolute Neutrophil Count 5.7 X10^3/uL (2.0-7.7); Basophil# 0.04 X10^3/uL; Basophil% 0.4 % (0-1); Eosinophils% 1.1 % (0-5); Hematocrit 29.7 % (37-47); Hemoglobin 9.5 g/dL (12.0-15.0); Lymphocyte # 2.47 X10^3/ul (4.0); Lymphocyte % 27.8 % (19-41); Mean Corpuscular Hgb 32.8 pg (27.0-32.0); Mean Corpuscular Volume 102.4 fL (81-99); Mean Platelet Vol. 10.9 fl (6.2-12.0); Monocyte# 0.52 X10^3/uL; Monocyte% 5.8 % (0-10); NRBC Flagged by Analyzer 0 % (0-5); Neutrophil # 5.74 X10^3/uL (2.7-7.7); Neutrophil % 64.6 % (47-70); Platelet Count 128 K/mm3 (150-450); RBC Distribution Width SD 55.8 fl (35.1-43.9); White Blood Count 8.9 K/mm3 (4.4-11.0)
[2019-11-30 16:46] LABS: ALB/GLOB Ratio 0.3 RATIO (0.9-2.4); AST(SGOT) 17 U/L (15-37); Alanine Aminotransfer ALT/SGPT < 6 U/L (13-56); Albumin, Serum 1.3 g/dL (3.2-5.0); Alkaline Phosphatase 184 U/L (45-117); Anion Gap 9 (5-15); BUN 12 mg/dL (7-18); BUN/Creat Ratio 10.6 RATIO (10-20); Calcium,Total 7.4 mg/dL (8.5-10.1); Chloride 103 mmol/L (98-107); Creatinine, Serum 1.13 mg/dL (0.55-1.02); EST Glomerular Filtration Rate 51 mL/min (>60); Est Glom Filt Rate - Afr Amer 61 mL/min (>60); Ferritin 469 ng/mL (8-252); Globulin 4.2 g/dL (2.2-4.2); Glucose 112 mg/dL (74-106); Potassium 2.3 mmol/L (3.5-5.1); Protein, Total 5.5 g/dL (6.4-8.2); Sodium Level 140 mmol/L (136-145)
== END ==
PROVIDERS: PCP Family Medicine; Referring Provider Family Medicine; Visit Provider Family Medicine
DX: C67.9 Malignant neoplasm of bladder, unspecified (principal); Z48.3 Aftercare following surgery for neoplasm; Z93.2 Ileostomy status; Z48.01 Encounter for change or removal of surgical wound dressing
CPT/HCPCS: 80053; 82728; 82746; 85025

== ENCOUNTER 2019-11-30 18:20 | Emergency (ER) | payer MEDICARE, SELFPAY ==
[2019-11-30 15:35] VITALS: BMI 43.2
[2019-11-30 18:21] VITALS: BP 89/52; PULSE 90; RESP 16; TEMP 36.3; O2SAT 98; BMI 41.3
[2019-11-30 18:26] VITALS: BP 103/53; PULSE 90; RESP 18; TEMP 36.3; O2SAT 98
--- NOTE | 2019-11-30 18:54 | EKG12_ITS ---
Test Reason : DYSRHYTHMIA Blood Pressure : / mmHG Vent. Rate : 084 BPM Atrial Rate : 084 BPM P-R Int : 170 ms QRS Dur : 148 ms QT Int : 428 ms P-R-T Axes : 027 110 057 degrees QTc Int : 505 ms Normal sinus rhythm Right bundle branch block Left posterior fascicular block Bifascicular block Abnormal ECG Prolonged QR Confirmed by LADY CASIANO ([id number]), news copy editor LY CARR ([id number]) on 12/06/2019 2:42:54 PM Referred By: MARIANNA Confirmed By:LADY CASIANO
--- NOTE | 2019-11-30 18:55 | ED.VISSUMM ---
- ER Visit Summary Date of Service: 11/30/19 Chief Complaint: Hypokalemia History of Present Illness: The patient is a 69 F who presents with hypokalemia that was noticed today. Patient had outpatient labs drawn today and her potassium was 2.3. Patient states her primary care physician contacted her and told her to come to the emergency department for an infusion of potassium. Patient admits to some nausea and vomiting. Patient also admits to some lightheadedness and fatigue. Patient denies any chest pain. Patient denies any palpitations. Patient denies any shortness of breath. Patient denies any cough. Patient has a history of bladder cancer with a recent cystectomy. Physical Examination: Vital signs are stable. Patient is afebrile. Patient is in no acute distress. Oral mucosa is pink and moist. Neck is supple. Trachea is midline. There is no JVD noted. Heart was regular rate and rhythm. Lungs are clear and equal bilaterally. Abdomen is soft. Bowel sounds are normal. There is no tenderness. There is no rebound or guarding noted. Skin is warm dry. Cranial nerves II through XII are intact. There are no focal motor or sensory deficits noted. Extremities are intact. There is bilateral calf tenderness and edema. Test Results: Labs were reviewed from today which showed a normal BUN and creatinine however the potassium was 2.3. CBC was drawn earlier today and was normal. EKG showed normal sinus rhythm with a rate of 84. There is a right bundle branch block and left posterior fascicular block. There are no acute ST or T wave changes. This was unchanged compared to previous EKG dated 08/26/2019. Emergency Department Course and Treatment: Patient was ordered IV potassium chloride 20 mEq over 2 hours. Patient was also ordered oral potassium of 40 mEq. Patient refused to take this. Patient states she is unable to tolerate oral potassium because it makes her vomit. Patient states she is tried liquid potassium in addition to potassium pills and she is unable to keep it down. Patient states she has nausea medicine at home which she takes and is unable to keep her oral potassium down with that. Patient was instructed to follow-up with her primary care physician in 2 to 3 days. Patient understood and was agreeable with the plan. All questions were answered. Disposition: Discharge home Impression: Hypokalemia This note was generated with [employer] software. It may contain incorrect words, spelling, and punctuation that were not noted in review of the chart prior to signing ED Disposition - Plan for ED Patient: Disposition: Home or Assisted Living Diagnosis: Hypokalemia Instructions: ED Potassium Deficiency Referrals: José Miguel Guajardo DO [Primary Care Provider] - 2 Days
[2019-11-30] MEDS: Potassium Chloride 10mEq/100mL 10 MEQ/100 ML IV.SOLN. 100 MEQ IV BOLUS ×2 (19:33→20:40)
--- NOTE | 2019-11-30 20:10 | ED.RN ---
PT REFUSES ORAL POTASSIUM AND ANY TESTING. ATTEMPTED TO EDUCATE ON POTASSIUM, REFUSES EDUCATION. I AM ONLY HERE FOR AN IV INFUSION THEN YOU WILL SEND ME HOME. MADE AWARE.
[2019-11-30 20:35] VITALS: BP 107/49; PULSE 86; RESP 20; O2SAT 100
[2019-11-30 22:04] VITALS: BP 104/55; PULSE 94; RESP 19; O2SAT 97
[2019-11-30 22:48] VITALS: BP 104/55; PULSE 92; RESP 17; O2SAT 98
--- NOTE | 2019-11-30 22:51 | ED.RN ---
THIS NURSE CALLED DAUGHTER, KIRA KATE, TO INFORM KIRA THAT PT RECEIVED POTASSIUM IV AND TRANSPORTED HOME. KIRA EXPRESSED CONCERN THAT HER MOTHER IS VERY STUBBORN AND WILL REFUSED TESTS. PT DID REFUSE BLOOD DRAW BECAUSE IT WAS DONE TODAY BY HER HOME HEALTH NURSE.
== END 2019-11-30 22:59 | disposition home or self-care (01) ==
PROVIDERS: Emergency Provider Emergency Medicine; PCP Family Medicine
DX: E87.6 Hypokalemia (principal); F17.200 Nicotine dependence, unspecified, uncomplicated; C67.9 Malignant neoplasm of bladder, unspecified; Z48.3 Aftercare following surgery for neoplasm; Z93.2 Ileostomy status; Z48.01 Encounter for change or removal of surgical wound dressing
CPT/HCPCS: 80053; 82728; 82746; 85025; 93005; 96360; 99285; A4216

== ENCOUNTER → 2019-12-07 11:00 | Outpatient (CLI) | payer MEDICARE, SELFPAY ==
[2019-11-30 18:21] VITALS: BMI 41.3
[2019-12-07 16:19] LABS: Anion Gap 7 (5-15); BUN 12 mg/dL (7-18); BUN/Creat Ratio 8.9 RATIO (10-20); Calcium,Total 7.3 mg/dL (8.5-10.1); Chloride 109 mmol/L (98-107); Creatinine, Serum 1.35 mg/dL (0.55-1.02); EST Glomerular Filtration Rate 41 mL/min (>60); Est Glom Filt Rate - Afr Amer 50 mL/min (>60); Glucose 157 mg/dL (74-106); Potassium 2.4 mmol/L (3.5-5.1); Sodium Level 141 mmol/L (136-145)
== END ==
PROVIDERS: PCP Family Medicine; Referring Provider Family Medicine; Visit Provider Family Medicine
DX: C67.9 Malignant neoplasm of bladder, unspecified (principal); Z48.3 Aftercare following surgery for neoplasm; Z93.2 Ileostomy status; Z48.01 Encounter for change or removal of surgical wound dressing
CPT/HCPCS: 80048

== ENCOUNTER → 2020-01-07 09:32 | Outpatient (CLI) | payer MEDICARE, SELFPAY ==
[2019-12-29 11:48] VITALS: BMI 39.9
[2020-01-07 10:06] LABS: Anion Gap 7 (5-15); BUN 7 mg/dL (7-18); BUN/Creat Ratio 5.9 RATIO (10-20); Calcium,Total 7.9 mg/dL (8.5-10.1); Chloride 109 mmol/L (98-107); Creatinine, Serum 1.18 mg/dL (0.55-1.02); EST Glomerular Filtration Rate 48 mL/min (>60); Est Glom Filt Rate - Afr Amer 58 mL/min (>60); Glucose 106 mg/dL (74-106); Potassium 3.1 mmol/L (3.5-5.1); Sodium Level 140 mmol/L (136-145)
== END ==
PROVIDERS: PCP Family Medicine; Referring Provider Family Medicine; Visit Provider Family Medicine
DX: I50.20 Unspecified systolic (congestive) heart failure (principal); E87.6 Hypokalemia; R60.9 Edema, unspecified
CPT/HCPCS: 36591; 80048; A4216

== ENCOUNTER → 2020-01-14 10:52 | Outpatient (CLI) | payer MEDICARE, SELFPAY ==
[2019-12-29 11:48] VITALS: BMI 39.9
[2020-01-07 09:58] VITALS: BMI 40.0
[2020-01-14 11:24] LABS: Anion Gap 8 (5-15); BUN 5 mg/dL (7-18); BUN/Creat Ratio 4.2 RATIO (10-20); Calcium,Total 7.2 mg/dL (8.5-10.1); Chloride 107 mmol/L (98-107); Creatinine, Serum 1.19 mg/dL (0.55-1.02); EST Glomerular Filtration Rate 48 mL/min (>60); Est Glom Filt Rate - Afr Amer 58 mL/min (>60); Glucose 127 mg/dL (74-106); Potassium 2.3 mmol/L (3.5-5.1); Sodium Level 140 mmol/L (136-145)
== END ==
PROVIDERS: PCP Family Medicine; Referring Provider Family Medicine; Visit Provider Family Medicine
DX: C67.9 Malignant neoplasm of bladder, unspecified (principal); Z48.3 Aftercare following surgery for neoplasm; Z93.2 Ileostomy status; Z48.01 Encounter for change or removal of surgical wound dressing
CPT/HCPCS: 80048

== ENCOUNTER 2020-01-15 10:50 | Outpatient (CLI) | payer MEDICARE, SELFPAY ==
[2019-12-29 11:48] VITALS: BMI 39.9
[2020-01-07 09:58] VITALS: BMI 40.0
[2020-01-15 11:15] VITALS: BP 121/40; PULSE 79; RESP 18; TEMP 36.4; O2SAT 96
[2020-01-15] MEDS: Potassium Chloride IVPB 10 MEQ 100 MEQ IV BOLUS ×4 (11:29→14:52)
[2020-01-15] MEDS: 0.9% Saline Lock 10 ML Syringe IV ×2 (11:29→15:56)
[2020-01-15 15:58] VITALS: BP 123/40; PULSE 84; RESP 16; TEMP 37.5; O2SAT 97
== END 2020-01-15 16:00 | disposition home or self-care (01) ==
LOC: MEDOUTP 10:50 → ICU 10:51
PROVIDERS: PCP Family Medicine; Referring Provider Family Medicine; Visit Provider Family Medicine
DX: E87.6 Hypokalemia (principal)
CPT/HCPCS: 96365; 96366 ×3; 36591; J7050; A4216

== ENCOUNTER → 2020-01-18 12:00 | Outpatient (CLI) | payer MEDICARE, SELFPAY ==
[2019-12-29 11:48] VITALS: BMI 39.9
[2020-01-07 09:58] VITALS: BMI 40.0
[2020-01-18 15:27] LABS: Anion Gap 10 (5-15); BUN 7 mg/dL (7-18); BUN/Creat Ratio 4.8 RATIO (10-20); Calcium,Total 7.4 mg/dL (8.5-10.1); Chloride 105 mmol/L (98-107); Creatinine, Serum 1.46 mg/dL (0.55-1.02); EST Glomerular Filtration Rate 38 mL/min (>60); Est Glom Filt Rate - Afr Amer 46 mL/min (>60); Glucose 93 mg/dL (74-106); Potassium 2.3 mmol/L (3.5-5.1); Sodium Level 140 mmol/L (136-145)
== END ==
PROVIDERS: PCP Family Medicine; Referring Provider Family Medicine; Visit Provider Family Medicine
DX: C67.9 Malignant neoplasm of bladder, unspecified (principal); Z48.3 Aftercare following surgery for neoplasm; Z93.2 Ileostomy status; Z48.01 Encounter for change or removal of surgical wound dressing
CPT/HCPCS: 80048

== ENCOUNTER → 2020-02-01 14:32 | Outpatient (CLI) | payer MEDICARE, SELFPAY ==
[2020-01-07 09:58] VITALS: BMI 40.0
[2020-01-28 11:12] VITALS: BMI 34.0
[2020-02-01 15:43] LABS: Anion Gap 9 (5-15); BUN 17 mg/dL (7-18); BUN/Creat Ratio 10.9 RATIO (10-20); Calcium,Total 7.4 mg/dL (8.5-10.1); Chloride 106 mmol/L (98-107); Creatinine, Serum 1.56 mg/dL (0.55-1.02); EST Glomerular Filtration Rate 35 mL/min (>60); Est Glom Filt Rate - Afr Amer 42 mL/min (>60); Glucose 81 mg/dL (74-106); Potassium 1.9 mmol/L (3.5-5.1); Sodium Level 139 mmol/L (136-145)
== END ==
PROVIDERS: PCP Family Medicine; Referring Provider Internal Medicine Cardiovascular Disease; Visit Provider Internal Medicine Cardiovascular Disease
DX: C67.9 Malignant neoplasm of bladder, unspecified (principal); Z48.3 Aftercare following surgery for neoplasm; Z93.2 Ileostomy status; Z48.01 Encounter for change or removal of surgical wound dressing
CPT/HCPCS: 80048

== ENCOUNTER → 2020-02-02 11:02 | Outpatient (CLI) | payer MEDICARE, SELFPAY ==
[2020-01-07 09:58] VITALS: BMI 40.0
[2020-01-28 11:12] VITALS: BMI 34.0
[2020-02-02] MEDS: 0.9% NaCl IVPB Med Flush (250 mL) 15 ML IV (11:22)
[2020-02-02] MEDS: Potassium Chloride 20mEq/100mL 20 MEQ/100 ML IV.SOLN. 100 MEQ IV (11:24)
[2020-02-02 11:25] VITALS: BP 112/39; PULSE 69; RESP 18; TEMP 36.1; BMI 32.7
[2020-02-02] MEDS: 0.9 % NaCl (Sterile) Posiflush 10 mL IV (11:25)
[2020-02-02] MEDS: 0.9% NaCl VAD Flush IV (12:38)
== END ==
PROVIDERS: PCP Family Medicine; Referring Provider Internal Medicine Cardiovascular Disease; Visit Provider Internal Medicine Cardiovascular Disease
DX: E87.6 Hypokalemia (principal); I42.8 Other cardiomyopathies; I45.10 Unspecified right bundle-branch block; R11.2 Nausea with vomiting, unspecified
CPT/HCPCS: 96365; J7050; A4216

== ENCOUNTER → 2020-02-03 09:24 | Outpatient (CLI) | payer MEDICARE, SELFPAY ==
[2020-01-07 09:58] VITALS: BMI 40.0
[2020-01-28 11:12] VITALS: BMI 34.0
[2020-02-03] MEDS: 0.9% NaCl VAD Flush IV ×2 (09:49→11:08)
[2020-02-03] MEDS: Potassium Chloride 20mEq/100mL 20 MEQ/100 ML IV.SOLN. 100 MEQ IV (09:49)
[2020-02-03 10:03] VITALS: BP 99/33; PULSE 78; RESP 18; TEMP 35.9; O2SAT 100; BMI 33.9
== END ==
PROVIDERS: PCP Family Medicine; Referring Provider Internal Medicine Cardiovascular Disease; Visit Provider Internal Medicine Cardiovascular Disease
DX: E87.6 Hypokalemia (principal); R11.2 Nausea with vomiting, unspecified; I42.8 Other cardiomyopathies; I45.10 Unspecified right bundle-branch block
CPT/HCPCS: 96365; J7050; A4216

== ENCOUNTER → 2020-02-09 13:13 | Outpatient (CLI) | payer MEDICARE, SELFPAY ==
[2020-01-07 09:58] VITALS: BMI 40.0
[2020-01-28 11:12] VITALS: BMI 34.0
[2020-02-03 10:03] VITALS: BMI 33.9
--- NOTE | 2020-02-09 13:14 | CT_ITS ---
STUDY: CT ABDOMEN AND PELVIS WITHOUT CONTRAST REASON FOR EXAM: Female, 69 years old. BLADDER CANCER RADIATION DOSAGE (If Supplied By Facility): CTDIvol = ( 13.22 ) mGy, DLP = ( 1453.90 ) mGycm TECHNIQUE: Transaxial images were obtained from the dome of the diaphragm to the symphysis pubis without oral contrast, and without intravenous contrast. Sagittal and coronal images were reconstructed. Individualized dose optimization techniques were used for this CT. COMPARISON: Comparison is made with prior study dated August 23, 2019. FINDINGS: The visualized lung bases are unremarkable. Coronary artery calcifications. There is decreased attenuation of the liver consistent with steatosis. Normal gallbladder and extrahepatic biliary system. Normal spleen. Normal pancreas. There is a small, circumscribed, smooth, low attenuation left adrenal mass, consistent with an adrenal adenoma. This measures 2.1 cm x 2.1 cm. Normal right adrenal gland. Moderate degree of bilateral hydronephrosis. Moderate degree of bilateral hydroureter down to the ileostomy site in the anterior right abdominal wall. Normal visualized stomach. Normal small intestine. A moderate amount of fecal material is seen in the colon. The appendix is visualized and appears normal. Atherosclerotic calcification of the abdominal aorta. 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 Normal inferior vena cava. Normal retroperitoneum. The patient is status post cystectomy with ileal loop in the right lower quadrant. A small amount of fluid is seen in the pelvis where the bladder was present prior. An ostomy is seen in the right anterior abdominal wall. The underlying subcutaneous fat is infiltrated most likely with edematous postoperative changes. I also suspect a 3.7 cm x 2.5 cm seroma along the lateral subcutaneous tissues just distal to the ostomy site. There are degenerative changes of the visualized lumbar spine. Facet joint osteoarthritis. CT/Abdomen/Pelvis W IV Cont ONLY IMPRESSION: Moderate degree of bilateral hydronephrosis and hydroureter. Status post cystectomy with ileal loop and ostomy in the anterior abdominal wall. Postoperative changes are seen in the subcutaneous tissues at the level of the ostomy with possible small seroma. Fatty infiltration of the liver. Small amount of fluid in the pelvis. Stable enlargement of the left adrenal gland. Electronically Signed: Raheem Alvarez, at 14:24 EDT , Service support ,
[2020-02-09] MEDS: 0.9% NaCl IVPB Med Flush (250 mL) 15 ML IV (14:30)
[2020-02-09] MEDS: 0.9% NaCl Peripheral Flush Adult/Peds IV ×2 (14:39→14:40)
[2020-02-09 14:50] VITALS: BP 122/67; PULSE 64; RESP 16; TEMP 36.6; O2SAT 98; BMI 33.9
[2020-02-09] MEDS: Potassium Chloride 10mEq/100mL 10 MEQ/100 ML IV.SOLN. 100 MEQ IV BOLUS (14:50)
[2020-02-09] MEDS: 0.9% NaCl VAD Flush IV ×3 (14:58→15:15)
== END ==
LOC: CT 13:16 → MEDOUTP 13:56
PROVIDERS: PCP Family Medicine; Referring Provider Nurse Practitioner Family; Visit Provider Nurse Practitioner Family
DX: E87.6 Hypokalemia (principal); R11.2 Nausea with vomiting, unspecified; I42.8 Other cardiomyopathies; I45.10 Unspecified right bundle-branch block
CPT/HCPCS: 96365; 74177; J7050; Q9967; A4216

== ENCOUNTER → 2020-02-14 10:18 | Outpatient (CLI) | payer MEDICARE, SELFPAY ==
[2020-01-07 09:58] VITALS: BMI 40.0
[2020-02-03 10:03] VITALS: BMI 33.9
== END ==
LOC: MEDOUTP 10:19 → ONC 10:40 → MEDOUTP 10:41
PROVIDERS: PCP Family Medicine; Referring Provider Physician Assistant Medical; Visit Provider Physician Assistant Medical
DX: E87.6 Hypokalemia (principal)

== ENCOUNTER 2020-03-20 13:03 | Emergency (ER) | payer MEDICARE, SELFPAY ==
[2020-01-07 09:58] VITALS: BMI 40.0
[2020-02-14 11:19] VITALS: BMI 33.9
[2020-03-20] VITALS (8 sets, daily range): BP systolic 105–139; BP diastolic 40–93; PULSE 79–89; RESP 16–18; TEMP 37–37.2; O2SAT 96–99; BMI 43.9
--- NOTE | 2020-03-20 13:33 | CT_ITS ---
STUDY: CT ABDOMEN WITHOUT CONTRAST REASON FOR EXAM: Female, 69 years old. Large lump lateral to ileostomy x 3 days, red and amp; warm. Hx cervical and bladder cancer, hysterectomy. RADIATION DOSAGE (If Supplied By Facility): CTDIvol = ( 14.42 ) mGy, DLP = ( 556.88 ) mGycm TECHNIQUE: Transaxial images were obtained without intravenous contrast, and without oral contrast. Sagittal and coronal images were reconstructed. Individualized dose optimization techniques were used for this CT. COMPARISON: 02/09/2020 FINDINGS: The visualized lung bases are unremarkable. The visualized portions of the heart are within normal limits. There is decreased attenuation of the liver consistent with steatosis. Normal gallbladder and extrahepatic biliary system. Normal spleen. Normal pancreas. There is a stable 2.1 cm low attenuation left adrenal mass, consistent with an adrenal adenoma. Normal right adrenal gland. Stable bilateral hydronephrosis and hydroureter to the level of the ileostomy. Normal visualized stomach. Normal small intestine. Normal colon. There is non-visualization of the appendix. The right ileostomy site is free of acute abnormality. However, posterior and lateral to the ileostomy a hematoma within the right oblique musculature and a low-density fluid collection in the subcutaneous fat. Findings are suspicious for an inflammatory process. The hematoma within the right oblique muscle and subcutaneous fluid collection have significantly worsened since the previous study. There is diffuse atherosclerotic calcification of the abdominal aorta, without a demonstrated aneurysm. Normal inferior vena cava. Normal retroperitoneum. There are diffuse degenerative changes of the visualized lumbar spine, and pelvis. CT/Abdomen without IV Contrast IMPRESSION: Patient''s right ileostomy site is free of abnormality. However, posterior and lateral to the ileostomy site is a fluid collection within the right oblique musculature in the subcutaneous fluid collection suspicious for an inflammatory process. These combined entities measure 8.2 x 4.5 cm and have significantly worsened since the previous study. Diffuse induration of the subcutaneous fat elsewhere suggests anasarca Fatty liver Stable left adrenal adenoma Degenerative bony changes Electronically Signed: Daniel Denise MD at 15:14 EDT , Service support ,
--- NOTE | 2020-03-20 13:37 | ED.DCSUM_ITS ---
- ER Visit Summary Date of Service: 03/20/20 Chief Complaint: Lump right lateral abdominal wall near ostomy History of Present Illness: The patient is a 69 F history of bladder cancer with metastases is undergoing chemo and radiation. Has had a total cystectomy with a right upper quadrant ostomy. Patient also has a history of anemia prior hysterectomy and renal insufficiency. States that she is noticed swelling along her right ostomy the last several days. Denies any fever or chills. Physical Examination: Older female no acute distress vital signs stable afebrile. H EENT exam unremarkable. Neck nontender. Lungs clear to auscultation bilaterally. Heart regular rhythm no murmur. Abdomen soft. Nondistended. Normal bowel sounds. No peritoneal signs. She has a urine ostomy in the right upper quadrant. With a tennis ball sized abdominal wall mass or abscess. It is tender to palpation. It is warm to the touch. No peritoneal signs. Moving all 4 extremities. Acute on chronic edema both lower extremities. Neurologically she is awake and alert with no focal motor deficits. Test Results: White count of 6.9. Hemoglobin 5.7 April the patient runs between 7 and 11.. Hematocrit is 17. No bands. Chemistries unremarkable gap of 4 BUN of 15 creatinine 1.2. Left shoulder x-ray showed no acute abnormality chronic changes. CT abdomen and pelvis with IV contrast showed a fluid collection in the subcu tissue was 8.2 x 4.5 cm near the ostomy. Also anasarca and adrenal adenoma. This is read by the radiologist and reviewed by me. Repeat exam no change. Let was applied to the right abdominal wall and I did aspiration with a 19-gauge needle. The fluid was clear yellow and appears to be urine. There was no blood and no pus. This does not appear to be an abscess from the collection of urine by her urostomy in the subcu tissue. Patient tolerated procedure well. Emergency Department Course and Treatment: This abdominal wall density could be an abscess versus a cyst versus a hematoma versus other etiologies. CAT scan and labs are being obtained. Treatment Plan: Discussed with the patient. She needs to be admitted to be transfused blood for her anemia. She also needs urology evaluation for why she has a fluid collection around her urostomy and I suspect his urine. She had the surgery initially done at [facility] and prefers to go back there if she needs any further procedures. I have them on page. Disposition: Transfer to [facility] for both evaluation for her anemia and possible transfusion and also evaluation by urology. Impression: Acute on chronic anemia requiring transfusion History of metastatic bladder cancer Subcutaneous fluid collection near the urostomy site suspect urine leakage in the subcu tissue Aspiration by the ER physician This note was generated with [employer] dictation software. It may contain incorrect words, spelling, and punctuation that were not noted in review of the chart prior to signing ED Disposition - Plan for ED Patient: Referrals: José Miguel Guajardo DO [Primary Care Provider] -
--- NOTE | 2020-03-20 14:05 | RAD_ITS ---
STUDY: X-RAY - LEFT SHOULDER REASON FOR EXAM: Female, 69 years old. FALL, PAIN TECHNIQUE: 2 view(s) of the shoulder. COMPARISON: None. FINDINGS: There is moderate degenerative arthrosis of the glenohumeral articulation. There is degenerative arthrosis of the acromioclavicular joint without inferior osseous spur formation. Normal acromion. Normal humeral head and visualized proximal humerus. The soft tissue structures are unremarkable. Normal visualized pulmonary apex. RAD/Shoulder min 2 Views IMPRESSION: Degenerative arthrosis Electronically Signed: Daniel Denise MD at 15:06 EDT , Service support ,
[2020-03-20 14:09] LABS: Absolute Lymphocyte Count 2.07 X10^3/uL (0.83-4.51); Absolute Neutrophil Count 4.2 X10^3/uL (2.0-7.7); Basophil# 0.01 X10^3/uL; Basophil% 0.1 % (0-1); Eosinophil# 0.07 X10^3/uL; Hematocrit 17.6 % (37-47); Lymphocyte # 2.07 X10^3/ul (4.0); Lymphocyte % 30.1 % (19-41); Mean Corp Hgb Conc 32.4 g/dL (32-36); Mean Corpuscular Hgb 39.6 pg (27.0-32.0); Mean Corpuscular Volume 122.2 fL (81-99); Mean Platelet Vol. 9.3 fl (6.2-12.0); Monocyte# 0.45 X10^3/uL; Monocyte% 6.5 % (0-10); NRBC Flagged by Analyzer 0 % (0-5); Neutrophil # 4.24 X10^3/uL (2.7-7.7); Neutrophil % 61.7 % (47-70); POSITIVE COUNT YES; POSITIVE MORPHOLOGY YES; Platelet Count 182 K/mm3 (150-450); RBC Distribution Width CV 20.5 % (11.6-14.6); RBC Distribution Width SD 89.9 fl (35.1-43.9); Red Blood Count 1.44 M/mm3 (4.2-5.4); White Blood Count 6.9 K/mm3 (4.4-11.0)
[2020-03-20] MEDS: Morphine 4 MG/ML Syringe IV (14:12)
[2020-03-20] MEDS: Ondansetron 4 MG/2 ML Vial IV (14:12)
[2020-03-20 14:20] LABS: Hemoglobin 5.7 g/dL (12.0-15.0)
[2020-03-20 14:21] LABS: Differential Indicated SCAN CRITERIA MET
[2020-03-20 14:22] LABS: Anion Gap 4 (5-15); BUN 15 mg/dL (7-18); BUN/Creat Ratio 11.8 RATIO (10-20); Calcium,Total 8.1 mg/dL (8.5-10.1); Chloride 104 mmol/L (98-107); Creatinine, Serum 1.27 mg/dL (0.55-1.02); EST Glomerular Filtration Rate 44 mL/min (>60); Est Glom Filt Rate - Afr Amer 53 mL/min (>60); Estimated Creatinine Clearance 64.22 ml/min; Glucose 94 mg/dL (74-106); Potassium 4.6 mmol/L (3.5-5.1); Sodium Level 136 mmol/L (136-145)
[2020-03-20 14:51] LABS: Anisocytosis 2+; Platelet Estimate ADEQUATE (ADEQ); Red Cell Morphology N CHROM NORMAL (NORM C&C)
[2020-03-20] MEDS: Lidocaine/Epi/Tetracaine 50 ML 1 APPLIC TOPICAL (15:23)
--- NOTE | 2020-03-20 17:16 | ED.RN ---
called per pt's request- stated he will be coming back to ED shortly.
[2020-03-20 17:29] LABS: Creatinine, Urine < 13.00 mg/dL (NO RANGE EST.)
--- NOTE | 2020-03-20 18:13 | ED.RN ---
pt angry and frustated with current situation. pt states i am leaving if we don't get some answers right now. this rn attempted to talk with pt. asked what immediate needs I could adress at least to keep her more comfortable. pt readjusted in bed , warm blankets placed and support given. pt agreeable to waiting
--- NOTE | 2020-03-20 20:29 | ED.RN ---
spoke with daughterApryl on phone. understanding of awaiting transfer.
[2020-03-20] MEDS: traMADol 50 MG Tablet PO (21:36)
[2020-03-20] MEDS: traZODone 100 MG Tablet PO (21:37)
--- NOTE | 2020-03-20 21:37 | ED.RN ---
1,000 ml emptied from urostomy
[2020-03-21 12:42] LABS: Pathologist Review Reviewed
== END 2020-03-20 22:00 | disposition short-term general hospital (02) ==
LOC: ED 13:49
PROVIDERS: Emergency Medicine; Emergency Provider Emergency Medicine; PCP Family Medicine
DX: D64.9 Anemia, unspecified (principal); Z85.51 Personal history of malignant neoplasm of bladder
CPT/HCPCS: 36591; 73030; 74150; 80048; 82570; 85025; 86850; 86900; 86901; 96374; 96375; 99285; A4216; J2405

== ENCOUNTER → 2020-06-01 05:44 | Outpatient (CLI) | payer MEDICARE, SELFPAY ==
[2020-01-07 09:58] VITALS: BMI 40.0
[2020-05-23 12:35] VITALS: BMI 33.9
--- NOTE | 2020-06-01 05:44 | MRI_ITS ---
STUDY: MRI CERVICAL SPINE WITHOUT CONTRAST REASON FOR EXAM: Female, 69 years old. neck pain radiates into L arm with numbness TECHNIQUE: Standardized fat and water weighted pulse sequences were obtained in the sagittal and axial planes. COMPARISON: None FINDINGS: Evaluation is degraded by motion artifact. Normal foramen magnum and brainstem-cervical cord junction. Normal cervical lordosis. C2-3: There is minimal disc space narrowing and endplate spondylosis. There is no significant disc herniation, central canal or foraminal stenosis. C3-4: There is minimal disc space narrowing and endplate spondylosis. There is no significant disc herniation, central canal or foraminal stenosis. C4-5: There is mild disc space narrowing and endplates spondylosis. Mild disc osteophyte complex with mild central canal stenosis. Uncovertebral and facet arthropathy with mild right and moderate left foraminal stenosis. C5-6: There is severe disc space narrowing and endplates spondylosis. Mild disc osteophyte complex with mild central canal stenosis. Uncovertebral and facet arthropathy with mild right and severe left foraminal stenosis. C6-7: There is severe disc space narrowing and endplates spondylosis. Mild disc osteophyte complex with moderate central canal stenosis and flattening of the ventral spinal cord. Uncovertebral arthropathy with mild right and moderate left foraminal stenosis. C7-T1: There is minimal disc space narrowing and endplate spondylosis. There is no significant disc herniation, central canal or foraminal stenosis. MRI/Spine Cervical (Routine) IMPRESSION: C4/C5: Moderate left foraminal stenosis. C5/C6: Severe left foraminal stenosis. C6/C7: Moderate central canal stenosis. Moderate left foraminal stenosis Electronically Signed: Genaro Griffith MD at 15:42 EDT Tel , Service support ,
--- NOTE | 2020-06-01 05:44 | CT_ITS ---
STUDY: CT LEFT SHOULDER REASON FOR EXAM: Female, 69 years old. LEFT SHOULDER PAIN-INJURY X3-4 MONTHS AGO -- N/T LEFT FINGERS -- HX-CERVICAL and amp;amp; BLADDER CA W/ CHEMO and amp;amp; RAD TX -- SURG-HYST RADIATION DOSAGE (If Supplied By Facility): CTDIvol = ( 25.37 ) mGy, DLP = ( 464.37 ) mGycm TECHNIQUE: The patient was scanned in a multi detector CT scanner. High resolution transaxial imaging was performed without the administration of intravenous contrast material. Sagittal and coronal images were reconstructed. Individualized dose optimization techniques were used for this CT. COMPARISON: Left shoulder x-ray dated March 20, 2020 and May 23, 2020 FINDINGS: There is severe osteoarthritis, with severe articular joint space narrowing, osteoarthritic spurring, articular remodeling, and with articular erosions. Prominent soft tissue density of the glenohumeral articulation is likely due to presence of a joint effusion and possible synovitis. No acute fracture is seen. No visualized osteonecrosis. No visualized aggressive process. Normal humeral shaft. Normal coracoid process and scapula. Normal visualized lateral clavicle. Normal acromioclavicular articulation. There is a Type II morphology (curved), with a neutral orientation. Normal visualized muscles and soft tissue structures. The visualized aspects of the left chest reveal no gross abnormalities. Moderate to significant multilevel disc space narrowing and disc osteophyte formation with mild to moderate central canal stenosis and cord compression is partially visualized in the included portions of the cervical spine. Refer to MRI of the cervical spine report for bone June 01, 2020. CT/Extremity Upper without Contra IMPRESSION: 1. Severe DJD of the glenohumeral joint space 2. Moderate to significant multilevel disc space narrowing and disc osteophyte formation with mild to moderate central canal stenosis and cord compression is partially visualized in the included portions of the cervical spine. Refer to MRI of the cervical spine report for bone June 01, 2020. Electronically Signed: Raymundo Palomares MD at 23:53 EDT , Service support ,
== END ==
PROVIDERS: PCP Family Medicine; Referring Provider Orthopaedic Surgery; Visit Provider Orthopaedic Surgery
DX: S49.92XA Unspecified injury of left shoulder and upper arm, initial encounter (principal); G56.22 Lesion of ulnar nerve, left upper limb
CPT/HCPCS: 72141; 73200

== ENCOUNTER → 2020-07-20 13:05 | Outpatient (CLI) | payer MEDICARE, MEDICAID, SELFPAY ==
[2020-01-07 09:58] VITALS: BMI 40.0
[2020-05-23 12:35] VITALS: BMI 33.9
--- NOTE | 2020-07-20 13:08 | CT_ITS ---
STUDY: CT ABDOMEN AND PELVIS WITHOUT CONTRAST REASON FOR EXAM: Female, 69 years old. SURVEILLANCE-BLADDER CA. PT UNABLE TO RAISE LT ARM ABOVE HEAD. RADIATION DOSAGE (If Supplied By Facility): CTDIvol = ( 13.45 ) mGy, DLP = ( 588.96 ) mGycm TECHNIQUE: Transaxial images were obtained from the dome of the diaphragm to the symphysis pubis without oral contrast, and without intravenous contrast. Sagittal and coronal images were reconstructed. Individualized dose optimization techniques were used for this CT. COMPARISON: Comparison is made with prior study dated 03/20/2020. FINDINGS: The visualized lung bases are unremarkable. Coronary artery calcification. Normal liver. Normal gallbladder and extrahepatic biliary system. Normal spleen. Normal pancreas. There is a small, circumscribed, smooth, low attenuation left adrenal mass, consistent with an adrenal adenoma. This measures 2.1 cm x 2.1 cm. Normal right adrenal gland. 3 mm calculus in the lower pole calyx of the right kidney. Mild degree of bilateral hydronephrosis more prominent on the left side. Left retroaortic renal vein. Stable 6 mm calculus in the lower pole calyx of the left kidney. Normal visualized stomach. Normal small intestine. Normal colon. The appendix is visualized and appears normal. There is diffuse atherosclerotic calcification of the abdominal aorta. Stable focal outpouching of the right lateral wall of the proximal abdominal aorta measuring 1.3 cm. Normal inferior vena cava. There is borderline retroperitoneal lymphadenopathy with enlarged nodes no greater than 10mm in the short axis diameter. The bladder has been resected. An ileostomy is seen in the right lower quadrant. The previously seen hematoma overlying the right oblique muscle and subcutaneous fluid collection have resorbed. There are diffuse degenerative changes of the visualized lumbar spine. CT/Abdomen/Pelvis without Cont IMPRESSION: Status post cystectomy and the ileostomy in the right lower quadrant with bilateral hydronephrosis likely worse on the left side. The previously seen hematoma/seroma in the anterior lateral right abdominal wall as clear. Electronically Signed: Raheem Alvarez, at 15:01 EST , Service support ,
== END ==
PROVIDERS: PCP Family Medicine; Referring Provider Internal Medicine Medical Oncology; Visit Provider Internal Medicine Medical Oncology
DX: C67.4 Malignant neoplasm of posterior wall of bladder (principal)
CPT/HCPCS: 74176

== ENCOUNTER 2020-08-21 10:00 | Inpatient (IN) | payer MEDICARE, MEDICAID, SELFPAY ==
[2020-01-07 09:58] VITALS: BMI 40.0
[2020-07-25 12:48] VITALS: BMI 34.0
[2020-08-21] VITALS (17 sets, daily range): BP systolic 85–155; BP diastolic 30–129; PULSE 87–114; RESP 16–29; TEMP 36.1–37.2; O2SAT 97–100; BMI 32.3; BMI 31.6; BMI 31.7
--- NOTE | 2020-08-21 10:15 | RAD_ITS ---
STUDY: X-RAY CHEST REASON FOR EXAM: Female, 69 years old. ALTERED LOC, SOB TECHNIQUE: Single AP portable view of the chest. COMPARISON: Comparison is made with prior study dated 06/07/2019. FINDINGS: EKG electrodes are seen. A right-sided Port-A-Cath is in situ. The tip is at the level of the superior vena cava and right atrium. Hyperinflation. The lungs are clear. There is no demonstrated pleural abnormality. Normal size heart. Normal mediastinum and yaw. Normal visualized pulmonary arteries. There is atherosclerotic calcification of the aortic arch with tortuosity. Normal visualized thoracic spine. There is degenerative osteoarthritis of the bilateral shoulders. There is no demonstrated abnormality of the visualized soft tissue structures of the upper abdomen. RAD/Chest 1 View (Portable) IMPRESSION: Hyperinflation. The lungs are clear. Electronically Signed: Raheem Alvarez MD at 11:08 EST , Service support ,
--- NOTE | 2020-08-21 10:15 | EKG12_ITS ---
Test Reason : Blood Pressure : / mmHG Vent. Rate : 099 BPM Atrial Rate : 099 BPM P-R Int : 164 ms QRS Dur : 134 ms QT Int : 366 ms P-R-T Axes : 073 116 056 degrees QTc Int : 469 ms Normal sinus rhythm Right bundle branch block Left posterior fascicular block Bifascicular block Abnormal ECG Confirmed by FITO GÓMEZ, KENNY ([id number]), manager editorial LY CARR ([id number]) on 08/23/2020 7:52:44 AM Referred By: [facility] Confirmed By:KENNY PAYTON MD
[2020-08-21] MEDS: 0.9% Normal Saline 1,000 ML 999 ML IV ×2 (10:37→10:38)
[2020-08-21 10:38] LABS: Absolute Lymphocyte Count 1.23 X10^3/uL (0.83-4.51); Absolute Neutrophil Count 14.1 X10^3/uL (2.0-7.7); Basophil# 0.06 X10^3/uL; Basophil% 0.4 % (0-1); Eosinophil# 0.03 X10^3/uL; Eosinophils% 0.2 % (0-5); Hematocrit 24.9 % (37-47); Lymphocyte # 1.23 X10^3/ul (4.0); Lymphocyte % 7.5 % (19-41); Mean Corp Hgb Conc 32.1 g/dL (32-36); Mean Corpuscular Hgb 31.1 pg (27.0-32.0); Mean Corpuscular Volume 96.9 fL (81-99); Mean Platelet Vol. 9.6 fl (6.2-12.0); Monocyte# 0.84 X10^3/uL; Monocyte% 5.1 % (0-10); NRBC Flagged by Analyzer 0.1 % (0-5); Neutrophil # 14.08 X10^3/uL (2.7-7.7); Neutrophil % 86.2 % (47-70); Platelet Count 212 K/mm3 (150-450); RBC Distribution Width CV 17.2 % (11.6-14.6); RBC Distribution Width SD 61.1 fl (35.1-43.9); Red Blood Count 2.57 M/mm3 (4.2-5.4); White Blood Count 16.3 K/mm3 (4.4-11.0)
[2020-08-21 10:48] LABS: International Normalized Ratio 1.7; Partial Thromboplast Time 69.8 Seconds (24.1-36.2); Prothrombin Time (Protime)PT. 19.3 SECONDS (11.7-14.9)
[2020-08-21 11:01] LABS: ALB/GLOB Ratio 0.6 RATIO (0.9-2.4); AST(SGOT) 5 U/L (15-37); Alanine Aminotransfer ALT/SGPT 8 U/L (13-56); Alkaline Phosphatase 78 U/L (45-117); Anion Gap 13 (5-15); BUN 111 mg/dL (7-18); BUN/Creat Ratio 18.3 RATIO (10-20); Calcium,Total 9.5 mg/dL (8.5-10.1); Chloride 120 mmol/L (98-107); Creatinine, Serum 6.06 mg/dL (0.55-1.02); EST Glomerular Filtration Rate 7 mL/min (>60); Est Glom Filt Rate - Afr Amer 9 mL/min (>60); Estimated Creatinine Clearance 9.91 ml/min; Globulin 4.8 g/dL (2.2-4.2); Glucose 103 mg/dL (74-106); Potassium 6.5 mmol/L (3.5-5.1); Protein, Total 7.8 g/dL (6.4-8.2); Sodium Level 139 mmol/L (136-145)
[2020-08-21 11:04] LABS: Lactic Acid 0.7 mmol/L (0.4-1.9)
--- NOTE | 2020-08-21 11:18 | ED.DCSUM_ITS ---
History of Present Illness Chief Complaint: Alt LOC Narrative: Patient presenting secondary to altered mental status, weakness, and general overall decline. Patient has an underlying history of nonischemic cardiomyopathy, congestive heart failure, COPD, bladder cancer status post cystectomy with urostomy placement. Patient apparently over the course of the last 2 weeks has had a overall generalized decline. Patient has not been eating and drinking. She is complaining of abdominal pain. Patient apparently is jiang ving some confusion, EMS was contacted and instructed bring patient for further evaluation. Patient denies presence of fevers. She denies any vomiting. She denies any significant diarrhea. She does still have output from her urostomy. She reports that she has diffuse abdominal pain. Past Medical History - Allergies and Home Meds Allergies/Adverse Reactions: Allergies Penicillins Allergy (Mild, Verified 07/25/20 12:47) rash ciprofloxacin [From Cipro] Adverse Reaction (Verified 07/25/20 12:47) Nausea/Vom/Diarrhea sulfamethoxazole [From Bactrim] Adverse Reaction (Verified 07/25/20 12:47) Nausea/Vom/Diarrhea trimethoprim [From Bactrim] Adverse Reaction (Verified 07/25/20 12:47) Nausea/Vom/Diarrhea Primary Care Physician: José Miguel Guajardo DO [Primary Care Provider] - Prior records reviewed: Yes Past Medical History: - - Bladder cancer, COPD, congestive heart failure Surgical History: - - Cystectomy with urostomy placement Lives: With Family Smoking Status: Current every day smoker Alcohol: None Drugs: None Review of Systems General: Reports: Malaise Eyes: Denies: Visual changes - bilaterally, Diplopia ENT: Denies: Rhinorrhea, Sore throat Cardiovascular: Denies: Chest pain, Palpitations Respiratory: Denies: Dyspnea, Cough, Dyspnea on exertion Gastrointestinal: Reports: Abdominal pain, Nausea Genitourinary: Denies: Dysuria, Hematuria, Frequency Musculoskeletal: Denies: Back pain, Extremity Pain Skin: Denies: Rash, Wounds Neurological: Denies: Headache, Weakness, Numbness Physical Exam Vital Signs/Narrative: Vital Signs Temp Pulse Resp BP Pulse Ox 08/21/20 10:39 98.5 F 08/21/20 10:01 98.5 F 95 24 H 86/36 L 100 Inital Vital Signs reviewed: Yes General: Well nourished, Well developed, - - Ill-appearing Head: Normocephalic, Atraumatic Eyes: Perrl, EOMI ENT: Dry mucous membranes Neck: Supple, Nontender Cardiovascular: Regular rate, Regular rhythm, No murmurs Respiratory: No distress, CTA bilaterally, Chest nontender Abdomen: Tender - Diffuse nonlocalizing, no guarding or rebound. Urostomy is in place in the right lower quadrant draining yellow urine, - - Candidiasis noted in the inferior portion of the patient's pannus Back: Nontender, Normal Inspection Extremities: Nontender, No edema Skin: Normal color, No rash Neurological: Alert, Oriented x3, Cranial nerves II-XII grossly intact, Normal Strength, Normal Sensation Psychological: Normal affect, Normal Mood Diagnostic/Tx/Re-eval Chest X-Ray - ED: 1 View, Read by ED Physician, Chronic Changes Clinical Impression(s) from Imaging Studies Chest X-Ray 08/21/20 10:15 IMPRESSION: Hyperinflation. The lungs are clear. Electronically Signed: Raheem Alvarez MD at 11:08 EST , Service support , Abdomen/Pelvis CT 08/21/20 11:48 IMPRESSION: Stable examination. Ileostomy is seen in the right lower quadrant with stable appearance of the bilateral hydronephrosis slightly more prominent on the left side. Stable bilateral nonobstructive intrarenal calculi. Electronically Signed: Raheem Alvarez MD at 12:18 EST , Service support , Laboratory Data 08/21/20 08/21/20 08/21/20 10:22 10:22 10:22 WBC 16.3 H RBC 2.57 L Hgb 8.0 L Hct 24.9 L MCV 96.9 MCH 31.1 MCHC 32.1 RDW Std Deviation 61.1 H RDW Coeff of Mica 17.2 H Plt Count 212 MPV 9.6 Immature Gran % (Auto) 0.600 Neut % (Auto) 86.2 H Lymph % (Auto) 7.[address] [place] % (Auto) 5.1 Eos % (Auto) 0.2 Baso % (Auto) 0.4 Absolute Neuts (auto) 14.1 H Absolute Lymphs (auto) 1.23 Nucleated RBC % 0.1 PT 19.3 H INR 1.7 APTT 69.8 H Sodium 139 Potassium 6.5 H* Chloride 120 H Carbon Dioxide 6.0 L* Anion Gap 13 BUN 111 H* Creatinine 6.06 H Estim Creat Clear Calc 9.91 Est GFR (MDRD) Af Amer 9 L Est GFR (MDRD) Non-Af 7 L BUN/Creatinine Ratio 18.3 Glucose 103 Lactic Acid Calcium 9.5 Total Bilirubin 0.40 AST 5 L ALT 8 L Alkaline Phosphatase 78 Troponin I < 0.015 Total Protein 7.8 Albumin 3.0 L Globulin 4.8 H Albumin/Globulin Ratio 0.6 L Urine Color Urine Clarity Urine pH Ur Specific [place] Urine Protein Urine Glucose (UA) Urine Ketones Urine Occult Blood Urine Nitrite Urine Bilirubin Urine Urobilinogen Ur Leukocyte Esterase Urine RBC Urine WBC Ur Squamous Epith Cells Urine Bacteria Urine Mucus 08/21/20 08/21/20 10:22 12:53 WBC RBC Hgb Hct MCV MCH MCHC RDW Std Deviation RDW Coeff of Mica Plt Count MPV Immature Gran % (Auto) Neut % (Auto) Lymph % (Auto) [place] % (Auto) Eos % (Auto) Baso % (Auto) Absolute Neuts (auto) Absolute Lymphs (auto) Nucleated RBC % PT INR APTT Sodium Potassium Chloride Carbon Dioxide Anion Gap BUN Creatinine Estim Creat Clear Calc Est GFR (MDRD) Af Amer Est GFR (MDRD) Non-Af BUN/Creatinine Ratio Glucose Lactic Acid 0.7 Calcium Total Bilirubin AST ALT Alkaline Phosphatase Troponin I Total Protein Albumin Globulin Albumin/Globulin Ratio Urine Color Yellow Urine Clarity Cloudy Urine pH 6.0 Ur Specific [place] 1.010 Urine Protein 30 H Urine Glucose (UA) Normal Urine Ketones Negative Urine Occult Blood 150 H Urine Nitrite Positive H Urine Bilirubin Negative Urine Urobilinogen Normal Ur Leukocyte Esterase 500 H Urine RBC 5-10 SEEN Urine WBC 50-100 SEEN Ur Squamous Epith Cells 0-5 SEEN Urine Bacteria 3+ Urine Mucus 0 SEEN - EKG Initial EKG Interpretation: - - Sinus rhythm 99 with right bundle branch block morphology and left posterior fascicular block. No evidence of acute ST segment changes or T changes, no gross changes from March 2020. - Medical Decision Making Patient presented secondary to generalized decline. She was noted to be hypotensive on arrival. She was started on fluid resuscitation, her blood pressure was fluid responsive. Chest x-ray by my personal review shows no evidence of infiltrate, this is agreed upon by radiology. CT abdomen and pelvis did not demonstrate any evidence of acute obstructive or inflammatory process. Patient was found to be profoundly uremic with signs of renal failure, creatinine was 6 BUN was over 100, bicarbonate was down to 6 with normal anion gap EKG does not show QRS widening or peaked T waves. Patient was continued on fluid resuscitation. Urine did show evidence of what potentially could be infection, this was cultured patient was given a dose of Rocephin. Patient at this point is profoundly uremic with renal failure, hyperkalemia, and potential UTI. Patient will be admitted on the hospitalist. - Critical Care Time Critical care time (excluding procedures): 30-74 minutes ED Disposition - Plan for ED Patient: Disposition: Acute Care Hospital [facility] Diagnosis: SOO (acute kidney injury), Uremia, Hyperkalemia, Hypotension Referrals: José Miguel Guajardo DO [Primary Care Provider] -
--- NOTE | 2020-08-21 11:48 | CT_ITS ---
STUDY: CT ABDOMEN AND PELVIS WITHOUT CONTRAST REASON FOR EXAM: Female, 69 years old. ALTERED LOC X 2 WEEKS. UTERINE CA. HAVING PAIN. HX OF HYSTERECTOMY, BLADDER RESECTION AND APPY RADIATION DOSAGE (If Supplied By Facility): CTDIvol = ( 15.50 ) mGy, DLP = ( 770.70 ) mGycm TECHNIQUE: Transaxial images were obtained from the dome of the diaphragm to the symphysis pubis without oral contrast, and without intravenous contrast. Sagittal and coronal images were reconstructed. Individualized dose optimization techniques were used for this CT. COMPARISON: Comparison is made with prior study dated 07/20/2020. FINDINGS: Calcified granuloma in the posterior medial aspect of the right lower lobe. Coronary artery calcification. Normal liver. Normal gallbladder and extrahepatic biliary system. Normal spleen. Normal pancreas. There is a small, circumscribed, smooth, low attenuation left adrenal mass, consistent with an adrenal adenoma. This measures 2.5 cm. Normal right adrenal gland. Bilateral hydronephrosis more prominent on the left side. The patient is status post cystectomy and ileostomy in the right lower quadrant. Suture line is seen at the ostomy site. Stable faint 6 mm calculus in the lower pole calyx of the left kidney. Stable punctate calculus in the lower pole cortex of the right kidney. Normal visualized stomach. Normal small intestine. Normal colon. There are surgical clips in the region of the appendix consistent with a prior appendectomy. There is diffuse atherosclerotic calcification of the abdominal aorta and its major visceral branches, without a demonstrated aneurysm. Normal inferior vena cava. Normal retroperitoneum. Status post cystectomy. There is absence of the uterus consistent with a prior hysterectomy. Normal abdominal wall. There are diffuse degenerative changes of the visualized lumbar spine. CT/Abdomen/Pelvis without Cont IMPRESSION: Stable examination. Ileostomy is seen in the right lower quadrant with stable appearance of the bilateral hydronephrosis slightly more prominent on the left side. Stable bilateral nonobstructive intrarenal calculi. Electronically Signed: Raheem Alvarez MD at 12:18 EST , Service support ,
--- NOTE | 2020-08-21 12:40 | CM.ED ---
SOCIAL WORK Informant: Dr. Molina Reason for Consult: with questions about Advanced Directives Met with patient's , Gerard to answer questions about HPOA and Living Will. Education and blank copies of forms provided to review. states will look over forms. Informed if patient wishes to complete forms able to do so while in the hospital. voices no further questions at this time. Per staff, patient to be admitted. Plan: Admit Henri Worthington MSW, [employer]
[2020-08-21 12:58] LABS: Mucous, Urine 0 SEEN /hpf (<or=2+)
[2020-08-21 12:59] LABS: Color, Urine Yellow (Yellow); Glucose, Dipstick Normal (Normal); Ketone-Dipstick Negative (Negative); Leukocyte Esterase-Dipstick 500 /ul (Negative); Nitrite-Dipstick Positive (Negative); Occult Blood-Urine 150 /ul (Negative); Protein-Dipstick 30 mg/dl (Negative); Urine Bilirubin Dipstick Negative (Negative); Urine Clarity Cloudy (Clear); Urine Urobilinogen Normal (Normal)
[2020-08-21 13:06] LABS: Bacteria 3+ /hpf (None Seen); Red Blood Cells-Urine 5-10 SEEN /hpf (0-5); Squamous Epithelial Cells - UA 0-5 SEEN /hpf (5-10); White Blood Cells 50-100 SEEN /hpf (0-5)
--- NOTE | 2020-08-21 13:06 | NURSING ---
ICU [facility] ACUE RENAL FAILURE
[2020-08-21] MEDS: Ceftriaxone 1 GM/50 ML BAG IV (13:56)
--- NOTE | 2020-08-21 14:01 | PCM.HP.STD ---
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 The thrombus is nonocclusive. 03/20/2020 (10) Hydronephrosis of left kidney Status: Chronic (11) Abdominal wall mass Status: Chronic (12) Urothelial carcinoma of bladder Status: Chronic (13) Diarrhea Status: Chronic (14) Nausea & vomiting Status: Chronic History of Present Illness Date of Admission: 08/21/20 Chief Complaint: Not eating or drinking, dehydrated for 2 weeks l The patient is a 69 year old F with history of bladder cancer with ileal conduit in October 2019 came to ED with dehydration, hypotension,, altered mental status, not eating or drinking for 2 weeks. She is irritable and yells when she is moved. Her blood pressure was low 86/36 and had 2 L of normal saline bolus and 100/33. Afebrile. She denies any cough, shortness of breath, chest pain, abdominal pain. She has urostomy with clear urine in the bag. No hematuria. She also has constipation and hard bowel for 5 days. Labs in the ER shows potassium 6.5, bicarb 6.0, anion gap 13, BUN 111, creatinine 6.06. Sodium 139 chloride 120. VBG 7.0 09/26//6. She has port on the right chest. Chest x-ray shows hyperinflation but lungs clear. CT abdomen without contrast showed ileostomy right lower quadrant with a stable appearance of bilateral hydronephrosis slightly prominent on the left side. 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 The thrombus is nonocclusive. 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 The thrombus is nonocclusive. 03/20/2020 Hydronephrosis of left kidney (Chronic) N13.30 Abdominal wall mass (Chronic) Onset Date: 03/20/20 R22.2 Urothelial carcinoma of bladder (Chronic) C67.9 Diarrhea (Chronic) R19.7 Nausea & vomiting (Chronic) R11.2 DVT (deep venous thrombosis) I82.409 Anemia associated with chemotherapy N32.89 possible lymph node involvement in the pelvis and retroperitoneum Anemia due to chemotherapy D64.81, T45.1X5A COPD (chronic obstructive pulmonary disease) J44.9 Cancer-related pain J44.9 Chemotherapy management, encounter for Z98.890 removal of growth in throat Chemotherapy management, encounter for Z51.11 Fatigue J45.998 Frequent headaches C55 Gross hematuria R31.0 04/13/19 Narcolepsy G47.419 Neutropenia due to and not concurrent with chemotherapy Onset Date: ~03/2019 C67.9 Other hydronephrosis N13.39 04/13/19 Smoking history Z87.891 Thrombocytopenia due to drugs C67.9 Allergies Penicillins Allergy (Mild, Verified 07/25/20 12:47) rash ciprofloxacin [From Cipro] Adverse Reaction (Verified 07/25/20 12:47) Nausea/Vom/Diarrhea sulfamethoxazole [From Bactrim] Adverse Reaction (Verified 07/25/20 12:47) Nausea/Vom/Diarrhea trimethoprim [From Bactrim] Adverse Reaction (Verified 07/25/20 12:47) Nausea/Vom/Diarrhea Home Medications: Ambulatory Orders Medication Instructions Recorded traMADol [Ultram (G)] 50 mg PO BID PRN PRN 11/23/19 lisinopril 5 mg tablet 2.5 mg PO DAILY tab 04/28/20 melatonin 3 mg capsule 3 mg PO HS 04/28/20 pantoprazole 40 mg tablet,delayed 40 mg PO DAILY tab 04/28/20 release spironolactone 25 mg tablet 25 mg PO DAILY tab 04/28/20 ondansetron HCl 4 mg tablet 4 mg PO BID PRN 05/23/20 Apixaban [Eliquis] 5 mg PO BID #60 tab 05/26/20 traZODone [Desyrel] 50 mg PO QHS 05/31/20 Surgical History: Surgical History (Last Reviewed 07/25/20 @ 12:46 by July Thomas) BLADDER RESECTION 10-13-2019 Encounter for adjustment and management of vascular access device Z45.2 >5cm 04/23/19 History of hysterectomy Z90.710 UTERIINE FCANCER AGE 21 Surgical History: - - Cystectomy with urostomy placement Lives: With Family Smoking Status: Current every day smoker Alcohol: None Drugs: None Review of Systems Constitutional: Reports: Malaise, Weakness, Fatigue. Denies: Chills, Fever, Weight Change HEENT: Denies: Head Aches, Sinus Congestion, Sinus Drainage Cardiovascular: Denies: Chest Pain, Chest Pressure, Chest Tightness, Palpitations Respiratory: Denies: Cough, Shortness of Breath, Shortness of breath at rest, Sputum production Gastrointestinal: Reports: Constipation, Nausea, Vomiting. Denies: Abdominal Pain, Hematemesis, Hematochezia, Melena Genitourinary: Reports: - - Urostomy bag Musculoskeletal: Denies: Joint Pain, Joint Tenderness Skin: Denies: Rash, Wounds Neurological: Reports: Balance problems. Denies: Focal weakness, Numbness, Tingling Psychiatric: Reports: Anxiety, Depression. Denies: Homicidal Ideations, Suicidal Ideations Hematologic/ Lymphatic: Denies: Easy Bruising, Easy Bleeding Unable to obtain accurate/complete ROS d/t: Patient irritable, yelling. VTE Information - Inpt Only VTE Present on Admission: No VTE Mechan Device Prophylaxis: SCD's, None VTE Pharm Prophylaxis ordered?: Yes Patient Problems: Active and Suspected Problems (Last Reviewed 07/25/20 @ 12:46 by July Thomas) SOO (acute kidney injury) (Acute) Uremia (Acute) Hyperkalemia (Acute) Hypotension (Acute) Objective: Physical exam General: Awake, irritable, oriented x3 HEENT: Atraumatic, PERRLA, EOMI, Normocephalic Oral: Oral mucosa dry. No Gingival or Mucosal Lesions/ Ulcerations Neck: Supple, No JVD, Negative Carotid Bruits Lungs: Air entry diminished in bilateral lung bases. No crepitation/rhonchi Cardiovascular: Regular rate, Regular Rhythm, Normal S1, Normal S2, No murmurs Abdomen: Bowel Sounds Present, Soft, Non Tender, Non-Distended : Right sided urostomy bag present. Clear urine. No Hematuria. No renal angle tenderness. Extremities: No edema, Capillary Refill Less than 3 Seconds Skin: Intertrigo rash present in bilateral inguinal groin and lower abdominal fold of his skin. Skin is dry and scaly over lower extremities Musculoskeletal: Mild tenderness on extension of both knees probably knee arthritis. Range of motion at hip and knee joints are limited Neurological: Cranial nerves II-XII grossly intact, Deep Tendon Reflexes 2+/4 and Symmetrical, Neuro grossly intact Psych/Mental Status: Irritable. - Physical Exam Vitals/I&O's: Vital Signs Temp Pulse Resp BP Pulse Ox 96.9 F L 93 18 100/33 L 97 08/21/20 13:44 08/21/20 13:44 08/21/20 13:44 08/21/20 13:44 08/21/20 13:44 Oxygen Delivery Method Room Air Weight: 160 lb 4.417 oz Body Mass Index (BMI) 32.3 Intake and Output for Last 24 Hours 08/19/20 08/20/20 08/21/20 23:59 23:59 23:59 Intake Total 1999 Balance 1999 Laboratory Results 08/21/20 10:22: WBC 16.3 H, RBC 2.57 L, Hgb 8.0 L, Hct 24.9 L, MCV 96.9, MCH 31.1, MCHC 32.1, RDW Std Deviation 61.1 H, RDW Coeff of Mica 17.2 H, Plt Count 212, MPV 9.6, Immature Gran % (Auto) 0.600, Neut % (Auto) 86.2 H, Lymph % (Auto) 7.5 L, [place] % (Auto) 5.1, Eos % (Auto) 0.2, Baso % (Auto) 0.4, Absolute Neuts (auto) 14.1 H, Absolute Lymphs (auto) 1.23, Nucleated RBC % 0.1 08/21/20 10:22: PT 19.3 H, INR 1.7, APTT 69.8 H 08/21/20 10:22: Sodium 139, Potassium 6.5 H*, Chloride 120 H, Carbon Dioxide 6.0 L*, Anion Gap 13, BUN 111 H*, Creatinine 6.06 H, Estim Creat Clear Calc 9.91, Est GFR (MDRD) Af Amer 9 L, Est GFR (MDRD) Non-Af 7 L, BUN/Creatinine Ratio 18.3, Glucose 103, Calcium 9.5, Total Bilirubin 0.40, AST 5 L, ALT 8 L, Alkaline Phosphatase 78, Troponin I < 0.015, Total Protein 7.8, Albumin 3.0 L, Globulin 4.8 H, Albumin/Globulin Ratio 0.6 L 08/21/20 10:22: Lactic Acid 0.7 08/21/20 12:53: Urine Color Yellow, Urine Clarity Cloudy, Urine pH 6.0, Ur Specific [place] 1.010, Urine Protein 30 H, Urine Glucose (UA) Normal, Urine Ketones Negative, Urine Occult Blood 150 H, Urine Nitrite Positive H, Urine Bilirubin Negative, Urine Urobilinogen Normal, Ur Leukocyte Esterase 500 H, Urine RBC 5-10 SEEN, Urine WBC 50-100 SEEN, Ur Squamous Epith Cells 0-5 SEEN, Urine Bacteria 3+, Urine Mucus 0 SEEN Current Medications Albuterol Sulfate (Albuterol *Concentrate* 5mg/Ml 5 Mg/Ml Bottle) 10 mg INHALATION X1 ONE Stop: 08/21/20 13:46 Sodium Bicarbonate 150 meq/ (Dextrose) 1,150 mls @ 150 mls/hr IV .Q7H40M AMBROSE Pantoprazole Sodium (Pantoprazole Sodium 40 Mg Tablet) 40 mg PO DAILY AMBROSE Trazodone HCl (Trazodone 50 Mg Tablet) 50 mg PO QHS PRN PRN Reason: Insomnia Assessment/Plan All Active Problems (Last Reviewed 07/25/20 @ 12:46 by July Thomas) SOO (acute kidney injury) (Acute) Uremia (Acute) Hyperkalemia (Acute) Hypotension (Acute) Encounter for education (Resolved) The patient is a 69 year old F with history of bladder cancer with ileal conduit in October 2019 came to ED with dehydration, hypotension,, altered mental status, not eating or drinking for 2 weeks. Chest x-ray shows hyperinflation but lungs clear. CT abdomen without contrast showed ileostomy right lower quadrant with a stable appearance of bilateral hydronephrosis slightly prominent on the left side. 1. Acute kidney injury with non-anion gap metabolic acidosis most likely from prerenal etiology, probably ATN/postobstructive: Patient is being admitted in ICU. Patient did not get any hyperkalemia cocktail or Kayexalate in ER. EKG normal sinus rhythm, RBBB, LPFB, bifascicular block at 99 b/m. QRS 134 ms, QTC 461 ms. Hyperacute T waves or sine waves not seen. Hyperkalemia cocktail ordered along with Kayexalate 30 g 1 dose. IV fluid D5W with 150 M EQ of sodium bicarbonate at 50 mill per hour. Ultrasound kidneys and bladder ordered. Repeat BMP in 3 hours. Horse Trainer and adult basic education instructor consulted. CT abdomen shows bilateral chronic hydronephrosis, more on the left side with a stable bilateral nonobstructive intrarenal calculi. 2. Nausea, vomiting probably viral : CT abdomen was done which shows normal visualized stomach, small intestine and colon. Prior appendectomy. 3. CA bladder with neoadjuvant chemotherapy and cystectomy: The patient had transurethral bladder resection on 04/23/2019 with biopsy showed urethral carcinoma. Neoadjuvant chemotherapy with carboplatin and Gemzar and then had robotic assisted laparoscopic anterior exenteration with bilateral extended pelvic lymph node dissection and creation of an ileal conduit on 10/13/[address] Yin at [facility]. CT scan on 02/09/2020 showed no evidence of disease. Patient follows Dr. Stone last office visit 07/31/2020 4 DVT in March 2020 and on Eliquis: Eliquis on hold because of estimated creatinine clearance 6 mL/min. On heparin for continued subcutaneous twice daily bilateral SCDs] 5. Chronic systolic heart failure: Last cardiology visit in April 2020, Dr. Moreau. Nonischemic cardiomyopathy. Hold lisinopril, spironolactone and tramadol. 2D echo in November 2019 Mild segmental systolic dysfunction (see wall motion). The estimated ejection fraction is 45 %. The global longitudinal strain = -14% (abnormal). Trivial mitral valve insufficiency. Trivial tricuspid valve insufficiency. Mild focal aortic valve calcification. Trivial pericardial effusion. There are no echocardiographic indications of cardiac tamponade. Living will/advanced directive/end of life care: Patient does not have living will or advanced directive. After discussion of benefits/risks procedures involved with full code, DNR CC arrest and DNR CC, the patient and her opted for DNR-CC Arrest with intubation Patient does not want CPR/chest compression but okay with the ventilator, tube feeding, vasopressor and CVC catheter. Total time spent in [id number] encounter in discussion of advanced directive 16 minutes. Clinical Impression(s) from Imaging Studies Chest X-Ray 08/21/20 10:15 IMPRESSION: Hyperinflation. The lungs are clear. Abdomen/Pelvis CT 08/21/20 11:48 IMPRESSION: Stable examination. Ileostomy is seen in the right lower quadrant with stable appearance of the bilateral hydronephrosis slightly more prominent on the left side. Stable bilateral nonobstructive intrarenal calculi. b Inpatient E&M: 36686 Init Hosp L3 Procedures: 10880 Advncd Care Plan 30 Min
[2020-08-21 14:05] LABS: Blood Gas Specimen Type VEN; VBG BASE EXCESS -25 mmol/L (-1.0-3.5); VBG Bicarbonate 6 mmol/L (22-26); VBG PO2 48 mmHg (25-40); VBG SO2 64 % (50-70); VBG TCO2 7 mmol/L (23-33); VBG pCO2 23.3 mmHg (41-51); VBG pH 7.02 (7.32-7.42)
--- NOTE | 2020-08-21 14:13 | CPS ---
Critical venous PH verified times two.Results called to . Verified by readback.
--- NOTE | 2020-08-21 14:24 | CON.PCM_ITS ---
Consultation - Renal 08/21/20 PCP/ Referring MD: Requesting physician: [] Primary care physician: Dr. José Miguel Guajardo, DO - History of Present Illness History of Present Illness: The patient is a 69 year old F w/pmh of bladder cancer with ileal conduit in October 2019 represented to the emergency room with hypotension and altered mental status and decreased by mouth intake of fluids and solids for about 1-2 weeks. The patient is a very poor historian and most of the information is obtained from the chart and from her present at the bedside. Her initial blood pressure was 83/36 and she had 2 L of normal saline bolus and her blood pressure increased to 100/33. She was afebrile but she denies cough shortness of breath blood in the urostomy chest pain. She complained of on and off abdominal pain. Per she has had some vomiting and also occasional diarrhea in the last 1-2 weeks. Her creatinine was 6.06 and BUN 111 with a potassium of 6.5 which prompted renal consult. She denies any discharge at the Port-A-Cath site in the right upper chest. CT abdomen showed stable bilateral hydronephrosis slightly prominent on the left side. Per the patient had the urostomy done in [facility]. She has no other complaints but again she is a very poor historian. - Allergies Allergies: Allergies Penicillins Allergy (Mild, Verified 07/25/20 12:47) rash ciprofloxacin [From Cipro] Adverse Reaction (Verified 07/25/20 12:47) Nausea/Vom/Diarrhea sulfamethoxazole [From Bactrim] Adverse Reaction (Verified 07/25/20 12:47) Nausea/Vom/Diarrhea trimethoprim [From Bactrim] Adverse Reaction (Verified 07/25/20 12:47) Nausea/Vom/Diarrhea - Current Medications Current Medications: Current Medications Sodium Bicarbonate 150 meq/ (Dextrose) 1,150 mls @ 150 mls/hr IV .Q7H40M [facility]BR[facility] Pantoprazole Sodium (Pantoprazole Sodium 40 Mg Tablet) 40 mg PO DAILY AMBROSE Trazodone HCl (Trazodone 50 Mg Tablet) 50 mg PO QHS PRN PRN PRN Reason: Insomnia - Past Medical History Past Medical History (Chronic Problems): Chronic Problems (Last Reviewed 07/25/20 @ 12:46 by July Thomas) Hypokalemia (Chronic) Chronic systolic (congestive) heart failure (Chronic) 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 The thrombus is nonocclusive. 03/20/2020 Hydronephrosis of left kidney (Chronic) Abdominal wall mass (Chronic 03/20/20) Urothelial carcinoma of bladder (Chronic) Diarrhea (Chronic) Nausea & vomiting (Chronic) - Past Surgical History Surgical History: - - Cystectomy with urostomy placement - Social History Smoking Status: Current every day smoker Alcohol: None Drugs: None Review of Systems Eyes: Reports: - - review of systems otherwise negative unless noted in the HPI Patient Problems: Active and Suspected Problems (Last Reviewed 07/25/20 @ 12:46 by July Thomas) SOO (acute kidney injury) (Acute) Uremia (Acute) Hyperkalemia (Acute) Hypotension (Acute) - Physical Exam Vitals/I&O's: Vital Signs Temp Pulse Resp BP Pulse Ox 96.9 F L 93 18 100/33 L 97 08/21/20 13:44 08/21/20 13:44 08/21/20 13:44 08/21/20 13:44 08/21/20 13:44 Oxygen Delivery Method Room Air Weight: 72.7 kg Body Mass Index (BMI) 32.3 Intake and Output for Last 24 Hours 08/19/20 08/20/20 08/21/20 23:59 23:59 23:59 Intake Total 1999 Balance 1999 General: Alert HEENT: Atraumatic, Normocephalic Neck: Supple, Trachea Midline, - - right upper chest Port-A-Cath Lungs: Clear to auscultation, Normal air movement Cardiovascular: Normal S1, Normal S2 Abdomen: Bowel Sounds Present, Soft, Tender, - - urostomy on the right side with clear urine in the bag Extremities: No clubbing, No cyanosis, No edema Skin: No rashes Microbiology Past 72 Hours 08/21/20 13:40 Mucosa - Nose SARS-CoV-2 Antigen (Rapid) - Final Laboratory Results 08/21/20 10:22: WBC 16.3 H, RBC 2.57 L, Hgb 8.0 L, Hct 24.9 L, MCV 96.9, MCH 31.1, MCHC 32.1, RDW Std Deviation 61.1 H, RDW Coeff of Mica 17.2 H, Plt Count 212, MPV 9.6, Immature Gran % (Auto) 0.600, Neut % (Auto) 86.2 H, Lymph % (Auto) 7.5 L, [place] % (Auto) 5.1, Eos % (Auto) 0.2, Baso % (Auto) 0.4, Absolute Neuts (auto) 14.1 H, Absolute Lymphs (auto) 1.23, Nucleated RBC % 0.1 08/21/20 10:22: PT 19.3 H, INR 1.7, APTT 69.8 H 08/21/20 10:22: Sodium 139, Potassium 6.5 H*, Chloride 120 H, Carbon Dioxide 6.0 L*, Anion Gap 13, BUN 111 H*, Creatinine 6.06 H, Estim Creat Clear Calc 9.91, Est GFR (MDRD) Af Amer 9 L, Est GFR (MDRD) Non-Af 7 L, BUN/Creatinine Ratio 18.3, Glucose 103, Calcium 9.5, Total Bilirubin 0.40, AST 5 L, ALT 8 L, Alkaline Phosphatase 78, Troponin I < 0.015, Total Protein 7.8, Albumin 3.0 L, Globulin 4.8 H, Albumin/Globulin Ratio 0.6 L 08/21/20 10:22: Lactic Acid 0.7 08/21/20 12:53: Urine Color Yellow, Urine Clarity Cloudy, Urine pH 6.0, Ur Specific [place] 1.010, Urine Protein 30 H, Urine Glucose (UA) Normal, Urine Ketones Negative, Urine Occult Blood 150 H, Urine Nitrite Positive H, Urine Bilirubin Negative, Urine Urobilinogen Normal, Ur Leukocyte Esterase 500 H, Urine RBC 5-10 SEEN, Urine WBC 50-100 SEEN, Ur Squamous Epith Cells 0-5 SEEN, Urine Bacteria 3+, Urine Mucus 0 SEEN 08/21/20 14:00: Specimen Type DOMONIQUE, VBG pH 7.02 L*, VBG pO2 48 H, VBG HCO3 6 L, VBG Total CO2 7 L, VBG O2 Sat (Calc) 64, VBG Base Excess -25 L, POC Mix VBG pCO2 Pt Tmp 23.3 L Current Medications Sodium Bicarbonate 150 meq/ (Dextrose) 1,150 mls @ 150 mls/hr IV .Q7H40M AMBROSE Pantoprazole Sodium (Pantoprazole Sodium 40 Mg Tablet) 40 mg PO DAILY AMBROSE Trazodone HCl (Trazodone 50 Mg Tablet) 50 mg PO QHS PRN PRN PRN Reason: Insomnia Assessment/Plan All Active Problems (Last Reviewed 07/25/20 @ 12:46 by July Thomas) SOO (acute kidney injury) (Acute) Uremia (Acute) Hyperkalemia (Acute) Hypotension (Acute) Encounter for education (Resolved) SOO likely prerenal/ATN with severe hypotension and fluid depletion also possible some degree of obstructive uropathy hyperkalemia Metabolic acidosis Bilateral hydronephrosis with ileal conduit and urostomy CKD Baseline serum creatinine 1.5-1.6 but in July was 3 Leukocytosis Continue IV fluids as you are doing with sodium bicarbonate. Repeat BMP shortly this afternoon to make sure potassium and metabolic acidosis are improving. The patient received medical treatment for hyperkalemia. urology evaluation For bilateral hydronephrosis worse on one side with severe SOO Check renal ultrasound follow-up urine culture. keep MAP more than 65 Avoid nephrotoxins Bolus as needed with normal saline if recurrent hypotension further workup as indicated by clinical course. The above assessment and plan was discussed at length with the patient and her voiced understanding and agreed to proceed with the plan as outlined above. Her both given opportunity to ask questions and stated that those were answered to their satisfaction. Thank very much for allowing me to participate in the care of this patient. Please do not hesitate to call if any questions or such.
--- NOTE | 2020-08-21 14:46 | NURSING ---
ICU 5
[2020-08-21 15:04] LABS: Osmolality, Serum 333 mOsm/KG (280-301)
[2020-08-21] MEDS: Insulin Lispro 10 UNIT in Syringe 0 ML 6 UNIT IV (15:30)
[2020-08-21] MEDS: Dextrose 50%-Water 25 GM/50 ML DISP.SYRIN IV (15:31)
[2020-08-21] MEDS: Sodium Polystyrene Sulfonate 15 GM/60 ML UDC 30 GM PO (15:35)
[2020-08-21] MEDS: Polyethylene Glycol 3350 17 GM PACKET 34 GM PO (15:51)
[2020-08-21] MEDS: oxyCODONE 5 MG Tablet PO (15:52)
[2020-08-21 16:01] LABS: Bedside Glucose 98 mg/dL (70-110)
[2020-08-21 16:26] LABS: Protein, Urine (Random) 69.3 mg/dL (<11.9); Urea Nitrogen, Urine 388 mg/dL (NO RANGE EST.); Urine Chloride 82 mmol/L (Not Establ.); Urine Sodium 71 mmol/L (Not Establ.)
[2020-08-21 16:37] LABS: Osmolality, Urine 344 mOsm/KG
--- NOTE | 2020-08-21 16:51 | PCM.CON.CC ---
Problem List (1) SOO (acute kidney injury) Status: Acute (2) Uremia Status: Acute (3) Hyperkalemia Status: Acute (4) Hypotension Status: Acute (5) Chronic systolic (congestive) heart failure Status: Chronic (6) 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 Status: Chronic (7) Non-ischemic cardiomyopathy Status: Chronic (8) Deep vein thrombosis, lower right extremity Status: Chronic Comment: DVT in the distal right external iliac and common femoral veins. The thrombus is nonocclusive. 03/20/2020 (9) Urothelial carcinoma of bladder Status: Chronic Reason for Consult Date of Consultation: 08/21/20 Reason for Consultation: Renal failure/hyperkalemia History of Present Illness: The patient is a 69 year old F, with past medical history listed below, who presented to [facility] on 08/21/2020 secondary to decreased mental status, weakness and overall general decline. Patient does have a history of CHF, COPD and chronic kidney disease. Patient does have a history of bladder cancer status post cystectomy, but reportedly has had generalized decline over the last 2 weeks with decreased p.o. intake. Patient had been complaining of abdominal pain, but once developed confusion, EMS was contacted. Patient reportedly had not had any fevers, vomiting or diarrhea. Patient reportedly has had some output out of her urostomy, but had diffuse abdominal pain. In the ER, patient was saturating well on room air, but did appear ill. Patient was afebrile, but blood pressures were lower at 86/36. Urostomy reportedly did have some urine, but patient also had candidiasis noted on the inferior portion of her pannus. Chest x-ray showed hyperinflation and a CT of the abdomen and pelvis was relatively unremarkable except for a stable appearance of bilateral hydronephrosis that was worse on the left. Laboratory work-up showed a leukocytosis of 16.3 with an anemia of 8. Patient did have an elevated INR at 1.7. BMP was significant for a potassium of 6.5, bicarbonate of 6, BUN of 11 and creatinine of 6. Troponin and liver function tests were within normal limits. Patient also had a normal lactic acid. Patient did have an urinalysis that was suggestive of infection. Patient was initiated on Rocephin, initiated on a bicarbonate drip and admitted to the intensive care unit. Patient is confused at the time of my evaluation. Patient is not very cooperative with questioning. Patient reportedly does have a long history of smoking, but is not clear on whether she has been formally diagnosed with COPD. Patient reports she has a history of renal dysfunction, but is never required dialysis previously. Otherwise, unable to obtain a full review of systems at this time secondary to patient cooperation. 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 The thrombus is nonocclusive. 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 The thrombus is nonocclusive. 03/20/2020 Hydronephrosis of left kidney (Chronic) N13.30 Abdominal wall mass (Chronic) Onset Date: 03/20/20 R22.2 Urothelial carcinoma of bladder (Chronic) C67.9 Diarrhea (Chronic) R19.7 Nausea & vomiting (Chronic) R11.2 DVT (deep venous thrombosis) I82.409 Anemia associated with chemotherapy N32.89 possible lymph node involvement in the pelvis and retroperitoneum Anemia due to chemotherapy D64.81, T45.1X5A COPD (chronic obstructive pulmonary disease) J44.9 Cancer-related pain J44.9 Chemotherapy management, encounter for Z98.890 removal of growth in throat Chemotherapy management, encounter for Z51.11 Fatigue J45.998 Frequent headaches C55 Gross hematuria R31.0 04/13/19 Narcolepsy G47.419 Neutropenia due to and not concurrent with chemotherapy Onset Date: ~03/2019 C67.9 Other hydronephrosis N13.39 04/13/19 Smoking history Z87.891 Thrombocytopenia due to drugs C67.9 Allergies Penicillins Allergy (Mild, Verified 07/25/20 12:47) rash ciprofloxacin [From Cipro] Adverse Reaction (Verified 07/25/20 12:47) Nausea/Vom/Diarrhea sulfamethoxazole [From Bactrim] Adverse Reaction (Verified 07/25/20 12:47) Nausea/Vom/Diarrhea trimethoprim [From Bactrim] Adverse Reaction (Verified 07/25/20 12:47) Nausea/Vom/Diarrhea Home Medications: Ambulatory Orders Medication Instructions Recorded traMADol [Ultram (G)] 50 mg PO BID PRN PRN 11/23/19 lisinopril 5 mg tablet 2.5 mg PO DAILY tab 04/28/20 melatonin 3 mg capsule 3 mg PO HS 04/28/20 pantoprazole 40 mg tablet,delayed 40 mg PO DAILY tab 04/28/20 release spironolactone 25 mg tablet 25 mg PO DAILY tab 04/28/20 ondansetron HCl 4 mg tablet 4 mg PO BID PRN 05/23/20 Apixaban [Eliquis] 5 mg PO BID #60 tab 05/26/20 traZODone [Desyrel] 50 mg PO QHS 05/31/20 Surgical History: Surgical History (Last Reviewed 07/25/20 @ 12:46 by July Thomas) BLADDER RESECTION 10-13-2019 Encounter for adjustment and management of vascular access device Z45.2 >5cm 04/23/19 History of hysterectomy Z90.710 UTERIINE FCANCER AGE 21 Surgical History: - - Cystectomy with urostomy placement Lives: With Family Smoking Status: Current every day smoker Alcohol: None Drugs: None Review of Systems Unable to obtain accurate/complete ROS d/t: Patient cooperation Patient Problems: Active and Suspected Problems (Last Reviewed 07/25/20 @ 12:46 by July Thomas) SOO (acute kidney injury) (Acute) Uremia (Acute) Hyperkalemia (Acute) Hypotension (Acute) Objective: All imaging was personally reviewed. Agree with formal interpretation. Patient has not had pulmonary function test previously. Patient did have an echocardiogram in November 2019 showing an EF of 45% with focal wall motion abnormalities. RV pressures could not be estimated at that time. Patient did not have any significant valvular abnormalities noted. - Physical Exam Vitals/I&O's: Vital Signs Temp Pulse Resp BP Pulse Ox 37.2 C 97 27 H 87/56 L 100 08/21/20 15:16 08/21/20 16:00 08/21/20 16:00 08/21/20 16:00 08/21/20 16:00 Oxygen Delivery Method Room Air Weight: 71.1 kg Body Mass Index (BMI) 31.6 Intake and Output for Last 24 Hours 08/19/20 08/20/20 08/21/20 23:59 23:59 23:59 Intake Total 2425 / 2425 Output Total 350 / 350 Balance 2074 / 2074 General: Alert, Non-Cooperative, - - Appears older than stated age. Does not have true conversational dyspnea HEENT: Atraumatic, PERRLA, EOMI, Normocephalic, - - No scleral icterus or injection noted Oral: No Gingival or Mucosal Lesions/ Ulcerations, Dry Mucosa Neck: Supple, No JVD, No Nodes, Trachea Midline Lungs: No rhonchi, No wheeze, No rales, Diminished Cardiovascular: Normal S1, Normal S2, No murmurs, No rub noted, No Gallop, Tachycardic Abdomen: Bowel Sounds Present, Soft, Non Tender, Non-Distended, Obese, - - Urostomy noted Extremities: No clubbing, No cyanosis, Edema, - - Lichenification of lower extremities Skin: - - Candidal rash noted on pannus Musculoskeletal: No Tenderness to Palpation of Joints or Extremities Lymphatic: No Cervical, Supraclavicular, or Inguinal Adenopathy Neurological: Cranial nerves II-XII grossly intact, Neuro grossly intact - As much as patient will cooperate Psych/Mental Status: Impulsive, Restless Microbiology Past 72 Hours 08/21/20 13:40 Mucosa - Nose SARS-CoV-2 Antigen (Rapid) - Final Laboratory Results 08/21/20 10:22: WBC 16.3 H, RBC 2.57 L, Hgb 8.0 L, Hct 24.9 L, MCV 96.9, MCH 31.1, MCHC 32.1, RDW Std Deviation 61.1 H, RDW Coeff of Mica 17.2 H, Plt Count 212, MPV 9.6, Immature Gran % (Auto) 0.600, Neut % (Auto) 86.2 H, Lymph % (Auto) 7.5 L, [place] % (Auto) 5.1, Eos % (Auto) 0.2, Baso % (Auto) 0.4, Absolute Neuts (auto) 14.1 H, Absolute Lymphs (auto) 1.23, Nucleated RBC % 0.1 08/21/20 10:22: PT 19.3 H, INR 1.7, APTT 69.8 H 08/21/20 10:22: Sodium 139, Potassium 6.5 H*, Chloride 120 H, Carbon Dioxide 6.0 L*, Anion Gap 13, BUN 111 H*, Creatinine 6.06 H, Estim Creat Clear Calc 9.91, Est GFR (MDRD) Af Amer 9 L, Est GFR (MDRD) Non-Af 7 L, BUN/Creatinine Ratio 18.3, Glucose 103, Calcium 9.5, Total Bilirubin 0.40, AST 5 L, ALT 8 L, Alkaline Phosphatase 78, Troponin I < 0.015, Total Protein 7.8, Albumin 3.0 L, Globulin 4.8 H, Albumin/Globulin Ratio 0.6 L 08/21/20 10:22: Lactic Acid 0.7 08/21/20 12:53: Urine Color Yellow, Urine Clarity Cloudy, Urine pH 6.0, Ur Specific [place] 1.010, Urine Protein 30 H, Urine Glucose (UA) Normal, Urine Ketones Negative, Urine Occult Blood 150 H, Urine Nitrite Positive H, Urine Bilirubin Negative, Urine Urobilinogen Normal, Ur Leukocyte Esterase 500 H, Urine RBC 5-10 SEEN, Urine WBC 50-100 SEEN, Ur Squamous Epith Cells 0-5 SEEN, Urine Bacteria 3+, Urine Mucus 0 SEEN 08/21/20 14:00: Specimen Type DOMONIQUE, VBG pH 7.02 L*, VBG pO2 48 H, VBG HCO3 6 L, VBG Total CO2 7 L, VBG O2 Sat (Calc) 64, VBG Base Excess -25 L, POC Mix VBG pCO2 Pt Tmp 23.3 L 08/21/20 14:25: Sodium Cancelled, Potassium Cancelled, Chloride Cancelled, Carbon Dioxide Cancelled, Anion Gap Cancelled, BUN Cancelled, Creatinine Cancelled, Estim Creat Clear Calc Cancelled, Est GFR (MDRD) Af Amer Cancelled, Est GFR (MDRD) Non-Af Cancelled, BUN/Creatinine Ratio Cancelled, Glucose Cancelled, Calcium Cancelled 08/21/20 14:25: Serum Osmolality 333 H 08/21/20 15:30: POC Glucose 98 08/21/20 15:50: Urine Osmolality 344, U Random Total Protein 69.3 H, Ur Random Sodium 71, Urine Creatinine 54.00, Urine Chloride 82, Urine Urea Nitrogen 388 Current Medications Acetaminophen (Acetaminophen 325 Mg Tablet) 650 mg PO Q6H PRN PRN PRN Reason: Pain Score 1-10/Temp > 100.7 F Albuterol Sulfate (Albuterol 2.5 Mg/3 Ml Vial.Neb.) 2.5 mg INHALATION Q2H PRN PRN PRN Reason: SOB/Wheezing Heparin Sodium (Porcine) (Heparin Injection (Vial) 5,000 Unit/Ml Vial) 5,000 unit SC Q12 [facility] Sodium Bicarbonate 150 meq/ (Dextrose) 1,150 mls @ 150 mls/hr IV .Q7H40M [facility] Last Admin: 08/21/20 15:33 Dose: 150 mls/hr Documented by: Sodium Chloride () 250 mls @ 15 mls/hr IV .[id number] PRN PRN Reason: Saline Flush Sodium Chloride () 250 mls @ 15 mls/hr IV .[id number] PRN PRN Reason: Additional IVPB Infusion Morphine Sulfate (Morphine 2 Mg/Ml Syringe) 2 mg IV Q3H PRN PRN PRN Reason: Pain Score 6-10 Nitroglycerin (Nitroglycerin (Inpatient Use) 0.4 Mg Tab.Subl) 0.4 mg SUBLINGUAL Q5M PRN PRN Reason: CARDIAC/CHEST PAIN Nutritional Formula (Lactose Free) (Ensure Clear 120 Ml Liquid) 120 ml PO 4X/DAY [facility] Oxycodone HCl (Oxycodone 5 Mg Tablet) 5 mg PO Q4H PRN PRN PRN Reason: Pain Score 4-5 Last Admin: 08/21/20 15:52 Dose: 5 mg Documented by: Pantoprazole Sodium (Pantoprazole Sodium 40 Mg Tablet) 40 mg PO DAILY [facility] Prochlorperazine Edisylate (Prochlorperazine 10 Mg/2 Ml Vial) 5 mg IV Q4H PRN PRN PRN Reason: Breakthrough Nausea/Vomiting Psyllium Hydrophilic Mucilloid (Psyllium 1 Packet) 1 packet PO DAILY [facility] Senna/Docusate Sodium (Senna/Docusate Sodium 1 Tablet) 2 tablet PO BID PRN PRN Reason: Constipation Sodium Chloride (0.9% Saline Lock 10 Ml Syringe) 10 - 40 ml IV UD PRN PRN Reason: SALINE FLUSH Trazodone HCl (Trazodone 50 Mg Tablet) 50 mg PO QHS PRN PRN PRN Reason: Insomnia Clinical Impression(s) from Imaging Studies Chest X-Ray 08/21/20 10:15 IMPRESSION: Hyperinflation. The lungs are clear. Electronically Signed: Raheem Alvarez MD at 11:08 EST , Service support , Abdomen/Pelvis CT 08/21/20 11:48 IMPRESSION: Stable examination. Ileostomy is seen in the right lower quadrant with stable appearance of the bilateral hydronephrosis slightly more prominent on the left side. Stable bilateral nonobstructive intrarenal calculi. Electronically Signed: Raheem Alvarez MD at 12:18 EST , Service support , Assessment/Plan Active and Suspected Problems (Last Reviewed 07/25/20 @ 12:46 by July Thomas) SOO (acute kidney injury) (Acute) Uremia (Acute) Hyperkalemia (Acute) Hypotension (Acute) RECOMMENDATIONS: 1. Recheck electrolytes this afternoon/evening 2. Possible evaluation for dialysis 3. Hold Eliquis for possible invasive procedures 4. Continue telemetry monitoring 5. Hold lisinopril and spironolactone IMPRESSIONS: 1. Metabolic encephalopathy secondary to acute kidney injury Patient with significant uremia on laboratory work-up. Patient also has hyperkalemia that is being addressed. Continue with bicarbonate drip. Cannot exclude the need for dialysis at this time. Patient appears to be protecting her airway, but may require medication secondary to agitation. 2. Hyperkalemia with nonanion gap metabolic acidosis secondary to acute kidney injury Patient does have some peaked T waves at this time. Patient has been treated. Anticipate improvement with treatment of acidosis and possible post renal etiology. Cannot exclude the need for dialysis catheter, so Eliquis should be held. 3. History of bladder cancer with neoadjuvant chemotherapy, cystectomy and current hydronephrosis Consider urology evaluation along with a renal ultrasound. Patient does appear to have some urostomy output that is infected. Patient is on antibiotics at this time. 4. Recent PE/chronic systolic CHF Patient on baseline 10 a inhibitor. However, there is a significant risk the patient will require invasive procedures. Would hold anticoagulation for now. Could use a heparin drip if necessary 5. Hypotension Unclear etiology. This may be a result or an etiology of patient's acute kidney injury. Clinical suspicion for post renal and prerenal etiology. Patient should receive fluid boluses as necessary. Oxygenation appears to be doing well at this time. Patient does have systolic congestive heart failure, so monitoring of saturation should allow for evaluation of respiratory compromise from pulmonary edema. Baseline antihypertensive therapy 6. Encephalopathy/multiple allergies/advanced age/recent bladder cancer Complicates care, management, recovery and prognosis. Patient appears to be tolerating antibiotics well despite reported allergy. Continue to monitor clinically. Inpatient E&M: [id number] Init Hosp L3
--- NOTE | 2020-08-21 16:57 | US_ITS ---
STUDY: RENAL ULTRASOUND - LIMITED REASON FOR EXAM: Female, 69 years old. Acute kidney injury. Status post cystectomy. Rule out obstructive uropathy. TECHNIQUE: Ultrasound evaluation of the bilateral kidneys was performed with real-time ultrasonography and static grayscale imaging. COMPARISON: None. FINDINGS: RIGHT KIDNEY: Normal location of the right kidney, which is normal in size. The right kidney measures 10.3 cm. There is increased renal cortical echogenicity. The renal cortex measures 1.6 cm. There are 2 small cysts. These measure 1.0 x 0.9 x 0.9 and 1.9 x 1.6 x 1.3 cm. Both are exophytic off the lower pole. Both appear simple. There are no right renal calculi. There is moderate hydronephrosis of the right kidney. LEFT KIDNEY: Normal location of the left kidney, which is normal in size. The left kidney measures 10.4 cm. Increased renal cortical echogenicity. The renal cortex measures 1.5 cm. There is no left renal mass or cyst. There are no left renal calculi. There is severe hydronephrosis of the left kidney. US/Kidney and Bladder IMPRESSION: 1. Increased renal cortical echogenicity of the bilateral kidneys consistent with medical renal disease. 2. Bilateral hydronephrosis, left greater than right. This correlates with the CT findings. 3. Small simple right renal cyst. No further workup required. Electronically Signed: Vince Allen DO at 19:03 EST Tel [phone], Service support ,
--- NOTE | 2020-08-21 17:10 | CPS ---
Critical blood gas results given to .
[2020-08-21 17:16] LABS: Allen Test Positive; Base Excess -23 mmol/L (-2 to +2); Bicarbonate 6.7 mmol/L (22-26); Blood Gas Specimen Type ART; O2 Delivery Device Room Air; PO2 118 mmHG (75-100); SITE L Radial; SO2 97 % (95-99); Total Carbon Dioxide 7 mmol/L; pCO2 21.4 mmHg (35-45); pH 7.11 (7.35-7.45)
[2020-08-21 17:27] LABS: Magnesium 1.5 mg/dL (1.6-2.6)
[2020-08-21 18:55] LABS: Anion Gap 10 (5-15); BUN 101 mg/dL (7-18); BUN/Creat Ratio 18.9 RATIO (10-20); Calcium,Total 9.2 mg/dL (8.5-10.1); Chloride 126 mmol/L (98-107); Creatinine, Serum 5.35 mg/dL (0.55-1.02); EST Glomerular Filtration Rate 8 mL/min (>60); Est Glom Filt Rate - Afr Amer 10 mL/min (>60); Estimated Creatinine Clearance 10.98 ml/min; Glucose 104 mg/dL (74-106); Potassium 5.1 mmol/L (3.5-5.1); Sodium Level 145 mmol/L (136-145)
[2020-08-21] MEDS: Nystatin Powder 15gm Bottle 1 APPLIC TOPICAL (21:41)
[2020-08-21] MEDS: Menthol/Lanolin/Calamine/Znox 113 GM Tube 1 APPLIC TOPICAL (21:43)
[2020-08-21] MEDS: Heparin Injection (Vial) 5,000 UNIT/ML VIAL 5000 UNIT SC (21:44)
[2020-08-22] VITALS (27 sets, daily range): BP systolic 47–132; BP diastolic 20–91; PULSE 74–102; RESP 14–25; TEMP 36.1–37.2; O2SAT 92–100
[2020-08-22] MEDS: 0.9% Normal Saline 1,000 ML 999 ML IV (00:11)
[2020-08-22 05:32] LABS: Absolute Lymphocyte Count 1.13 X10^3/uL (0.83-4.51); Absolute Neutrophil Count 4.5 X10^3/uL (2.0-7.7); Basophil# 0.02 X10^3/uL; Basophil% 0.3 % (0-1); Eosinophil# 0.07 X10^3/uL; Eosinophils% 1.1 % (0-5); Hematocrit 17.2 % (37-47); Lymphocyte # 1.13 X10^3/ul (4.0); Lymphocyte % 18.4 % (19-41); Mean Corp Hgb Conc 32.6 g/dL (32-36); Mean Corpuscular Hgb 30.4 pg (27.0-32.0); Mean Corpuscular Volume 93.5 fL (81-99); Mean Platelet Vol. 9.5 fl (6.2-12.0); Monocyte# 0.36 X10^3/uL; Monocyte% 5.9 % (0-10); NRBC Flagged by Analyzer 0 % (0-5); Neutrophil # 4.54 X10^3/uL (2.7-7.7); Neutrophil % 73.8 % (47-70); POSITIVE COUNT YES; Platelet Count 145 K/mm3 (150-450); RBC Distribution Width CV 17.2 % (11.6-14.6); RBC Distribution Width SD 57.3 fl (35.1-43.9); Red Blood Count 1.84 M/mm3 (4.2-5.4); White Blood Count 6.2 K/mm3 (4.4-11.0)
[2020-08-22 05:33] LABS: Differential Indicated SCAN CRITERIA MET; Hemoglobin 5.6 g/dL (12.0-15.0)
[2020-08-22 05:59] LABS: Anion Gap 8 (5-15); BUN 91 mg/dL (7-18); BUN/Creat Ratio 21.7 RATIO (10-20); Chloride 121 mmol/L (98-107); Creatinine, Serum 4.19 mg/dL (0.55-1.02); Differential Comment SCANNED; EST Glomerular Filtration Rate 11 mL/min (>60); Est Glom Filt Rate - Afr Amer 14 mL/min (>60); Estimated Creatinine Clearance 14.26 ml/min; Glucose 127 mg/dL (74-106); Potassium 3.4 mmol/L (3.5-5.1); Sodium Level 146 mmol/L (136-145); Thyroid Stim Hormone (TSH) 0.81 uIU/mL (0.358-3.74)
[2020-08-22 06:01] LABS: Anisocytosis RARE; Microcytosis RARE
--- NOTE | 2020-08-22 07:36 | PN_ITS ---
Subjective: Patient did okay overnight. No clinical signs of bleeding were noted. Patient did receive 1 L bolus of saline secondary to hypotension. Family is reporting that hospice had been consulted as an outpatient as patient has lost a will to live. Patient has complained of some abdominal pain, but no melena or hematochezia has been noted. No nausea or hematemesis has been reported. General: Alert, Cooperative, No apparent distress, - - More appropriate interaction today. Obese. HEENT: Atraumatic, PERRLA, EOMI, Normocephalic, - - No scleral icterus or injection noted Oral: Moist Mucosa, No Gingival or Mucosal Lesions/ Ulcerations Neck: Supple, No JVD, No Nodes, Trachea Midline Lungs: No rhonchi, No wheeze, No rales, Diminished Cardiovascular: Normal S1, Normal S2, Irregular Rate, Murmur, No rub noted, No Gallop Abdomen: Bowel Sounds Present, Soft, Non Tender, Non-Distended, Obese Extremities: No clubbing, No cyanosis, Edema Skin: - - No change from previous Musculoskeletal: No Tenderness to Palpation of Joints or Extremities Lymphatic: No Cervical, Supraclavicular, or Inguinal Adenopathy Neurological: Cranial nerves II-XII grossly intact, Neuro grossly intact, Motor Exam 5/5 strength throughout Psych/Mental Status: Alert and oriented to time, place, person, mood and affect Vital Signs Temp Pulse Resp BP Pulse Ox 36.1 C L 84 16 77/37 L 99 08/22/20 04:00 08/22/20 07:00 08/22/20 07:00 08/22/20 07:00 08/22/20 07:00 Oxygen Delivery Method Room Air Weight: 72.3 kg Body Mass Index (BMI) 31.6 Intake and Output for Last 24 Hours 08/20/20 08/21/20 08/22/20 23:59 23:59 23:59 Intake Total 3671.5 / 3671.5 2097.5 / 2097.5 Output Total 600 / 750 600 / 600 Balance 3071.5 / 2921.5 1497.5 / 1497.5 Labs (Last 48 Hours) 08/21/20 08/21/20 08/21/20 10:22 10:22 10:22 WBC 16.3 H Corrected WBC RBC 2.57 L Hgb 8.0 L Hct 24.9 L MCV 96.9 MCH 31.1 MCHC 32.1 RDW Std Deviation 61.1 H RDW Coeff of Mica 17.2 H Plt Count 212 MPV 9.6 Immature Gran % (Auto) 0.600 Neut % (Auto) 86.2 H Lymph % (Auto) 7.5 L Ada % (Auto) 5.1 Eos % (Auto) 0.2 Baso % (Auto) 0.4 Absolute Neuts (auto) 14.1 H Absolute Lymphs (auto) 1.23 Total Counted Neutrophils % (Manual) Band Neutrophils % Lymphocytes % (Manual) Monocytes % (Manual) Eosinophils % (Manual) Basophils % (Manual) Metamyelocytes % Myelocytes % Promyelocytes % Blast Cells % Plasma Cell % (Manual) Other Cells % Nucleated RBC % 0.1 Nucleated RBCs/100 WBC Differential Comment Diff Path Review Hypersegmented Neuts Atypical Lymphocytes Reactive Lymphocytes Smudge Cells Toxic Granulation Toxic Vacuolation Dohle Bodies Alireza Rods Platelet Estimate Plt Morphology Comment RBC Morphology Polychromasia Hypochromasia Poikilocytosis Basophilic Stippling Anisocytosis Microcytosis Macrocytosis Spherocytes Sickle Cells Target Cells Tear Drop Cells Ovalocytes Stomatocytes [place] Bodies Cecil Cells Bite Cells Crenated Cell Acanthocytes (Spur) Rouleaux Schistocytes PT 19.3 H INR 1.7 APTT 69.8 H Specimen Type Sample Site pH Bicarbonate Actual Total CO2 Base Excess O2 Saturation ABG pCO2 ABG pO2 [place] Test VBG pH VBG pO2 VBG HCO3 VBG Total CO2 VBG O2 Sat (Calc) VBG Base Excess POC Mix VBG pCO2 Pt Tmp O2 Delivery Device Sodium 139 Potassium 6.5 H* Chloride 120 H Carbon Dioxide 6.0 L* Anion Gap 13 BUN 111 H* Creatinine 6.06 H Estim Creat Clear Calc 9.91 Est GFR (MDRD) Af Amer 9 L Est GFR (MDRD) Non-Af 7 L BUN/Creatinine Ratio 18.3 Glucose 103 Serum Osmolality Lactic Acid Calcium 9.5 Phosphorus Magnesium Total Bilirubin 0.40 AST 5 L ALT 8 L Alkaline Phosphatase 78 Troponin I < 0.015 Total Protein 7.8 Albumin 3.0 L Globulin 4.8 H Albumin/Globulin Ratio 0.6 L TSH Urine Color Urine Clarity Urine pH Ur Specific [place] Urine Protein Urine Glucose (UA) Urine Ketones Urine Occult Blood Urine Nitrite Urine Bilirubin Urine Urobilinogen Ur Leukocyte Esterase Urine RBC Urine WBC Ur Squamous Epith Cells Urine Bacteria Urine Mucus Urine Osmolality U Random Total Protein Ur Random Sodium Urine Creatinine Urine Chloride Urine Urea Nitrogen POC Glucose Blood Type Antibody Screen Crossmatch 08/21/20 08/21/20 08/21/20 10:22 12:53 14:00 WBC Corrected WBC RBC Hgb Hct MCV MCH MCHC RDW Std Deviation RDW Coeff of Mica Plt Count MPV Immature Gran % (Auto) Neut % (Auto) Lymph % (Auto) Ada % (Auto) Eos % (Auto) Baso % (Auto) Absolute Neuts (auto) Absolute Lymphs (auto) Total Counted Neutrophils % (Manual) Band Neutrophils % Lymphocytes % (Manual) Monocytes % (Manual) Eosinophils % (Manual) Basophils % (Manual) Metamyelocytes % Myelocytes % Promyelocytes % Blast Cells % Plasma Cell % (Manual) Other Cells % Nucleated RBC % Nucleated RBCs/100 WBC Differential Comment Diff Path Review Hypersegmented Neuts Atypical Lymphocytes Reactive Lymphocytes Smudge Cells Toxic Granulation Toxic Vacuolation Dohle Bodies Alireza Rods Platelet Estimate Plt Morphology Comment RBC Morphology Polychromasia Hypochromasia Poikilocytosis Basophilic Stippling Anisocytosis Microcytosis Macrocytosis Spherocytes Sickle Cells Target Cells Tear Drop Cells Ovalocytes Stomatocytes [place] Bodies Jeet Cells Bite Cells Crenated Cell Acanthocytes (Spur) Rouleaux Schistocytes PT INR APTT Specimen Type DOMONIQUE Sample Site pH Bicarbonate Actual Total CO2 Base Excess O2 Saturation ABG pCO2 ABG pO2 [place] Test VBG pH 7.02 L* VBG pO2 48 H VBG HCO3 6 L VBG Total CO2 7 L VBG O2 Sat (Calc) 64 VBG Base Excess -25 L POC Mix VBG pCO2 Pt Tmp 23.3 L O2 Delivery Device Sodium Potassium Chloride Carbon Dioxide Anion Gap BUN Creatinine Estim Creat Clear Calc Est GFR (MDRD) Af Amer Est GFR (MDRD) Non-Af BUN/Creatinine Ratio Glucose Serum Osmolality Lactic Acid 0.7 Calcium Phosphorus Magnesium Total Bilirubin AST ALT Alkaline Phosphatase Troponin I Total Protein Albumin Globulin Albumin/Globulin Ratio TSH Urine Color Yellow Urine Clarity Cloudy Urine pH 6.0 Ur Specific [place] 1.010 Urine Protein 30 H Urine Glucose (UA) Normal Urine Ketones Negative Urine Occult Blood 150 H Urine Nitrite Positive H Urine Bilirubin Negative Urine Urobilinogen Normal Ur Leukocyte Esterase 500 H Urine RBC 5-10 SEEN Urine WBC 50-100 SEEN Ur Squamous Epith Cells 0-5 SEEN Urine Bacteria 3+ Urine Mucus 0 SEEN Urine Osmolality U Random Total Protein Ur Random Sodium Urine Creatinine Urine Chloride Urine Urea Nitrogen POC Glucose Blood Type Antibody Screen Crossmatch 08/21/20 08/21/20 08/21/20 14:25 14:25 15:30 WBC Corrected WBC RBC Hgb Hct MCV MCH MCHC RDW Std Deviation RDW Coeff of Mica Plt Count MPV Immature Gran % (Auto) Neut % (Auto) Lymph % (Auto) Ada % (Auto) Eos % (Auto) Baso % (Auto) Absolute Neuts (auto) Absolute Lymphs (auto) Total Counted Neutrophils % (Manual) Band Neutrophils % Lymphocytes % (Manual) Monocytes % (Manual) Eosinophils % (Manual) Basophils % (Manual) Metamyelocytes % Myelocytes % Promyelocytes % Blast Cells % Plasma Cell % (Manual) Other Cells % Nucleated RBC % Nucleated RBCs/100 WBC Differential Comment Diff Path Review Hypersegmented Neuts Atypical Lymphocytes Reactive Lymphocytes Smudge Cells Toxic Granulation Toxic Vacuolation Dohle Bodies Alireza Rods Platelet Estimate Plt Morphology Comment RBC Morphology Polychromasia Hypochromasia Poikilocytosis Basophilic Stippling Anisocytosis Microcytosis Macrocytosis Spherocytes Sickle Cells Target Cells Tear Drop Cells Ovalocytes Stomatocytes [place] Bodies Cecil Cells Bite Cells Crenated Cell Acanthocytes (Spur) Rouleaux Schistocytes PT INR APTT Specimen Type Sample Site pH Bicarbonate Actual Total CO2 Base Excess O2 Saturation ABG pCO2 ABG pO2 [place] Test VBG pH VBG pO2 VBG HCO3 VBG Total CO2 VBG O2 Sat (Calc) VBG Base Excess POC Mix VBG pCO2 Pt Tmp O2 Delivery Device Sodium Cancelled Potassium Cancelled Chloride Cancelled Carbon Dioxide Cancelled Anion Gap Cancelled BUN Cancelled Creatinine Cancelled Estim Creat Clear Calc Cancelled Est GFR (MDRD) Af Amer Cancelled Est GFR (MDRD) Non-Af Cancelled BUN/Creatinine Ratio Cancelled Glucose Cancelled Serum Osmolality 333 H Lactic Acid Calcium Cancelled Phosphorus Magnesium Total Bilirubin AST ALT Alkaline Phosphatase Troponin I Total Protein Albumin Globulin Albumin/Globulin Ratio TSH Urine Color Urine Clarity Urine pH Ur Specific [place] Urine Protein Urine Glucose (UA) Urine Ketones Urine Occult Blood Urine Nitrite Urine Bilirubin Urine Urobilinogen Ur Leukocyte Esterase Urine RBC Urine WBC Ur Squamous Epith Cells Urine Bacteria Urine Mucus Urine Osmolality U Random Total Protein Ur Random Sodium Urine Creatinine Urine Chloride Urine Urea Nitrogen POC Glucose 98 Blood Type Antibody Screen Crossmatch 08/21/20 08/21/20 08/21/20 15:50 17:11 18:15 WBC Corrected WBC RBC Hgb Hct MCV MCH MCHC RDW Std Deviation RDW Coeff of Mica Plt Count MPV Immature Gran % (Auto) Neut % (Auto) Lymph % (Auto) Ada % (Auto) Eos % (Auto) Baso % (Auto) Absolute Neuts (auto) Absolute Lymphs (auto) Total Counted Neutrophils % (Manual) Band Neutrophils % Lymphocytes % (Manual) Monocytes % (Manual) Eosinophils % (Manual) Basophils % (Manual) Metamyelocytes % Myelocytes % Promyelocytes % Blast Cells % Plasma Cell % (Manual) Other Cells % Nucleated RBC % Nucleated RBCs/100 WBC Differential Comment Diff Path Review Hypersegmented Neuts Atypical Lymphocytes Reactive Lymphocytes Smudge Cells Toxic Granulation Toxic Vacuolation Dohle Bodies Alireza Rods Platelet Estimate Plt Morphology Comment RBC Morphology Polychromasia Hypochromasia Poikilocytosis Basophilic Stippling Anisocytosis Microcytosis Macrocytosis Spherocytes Sickle Cells Target Cells Tear Drop Cells Ovalocytes Stomatocytes [place] Bodies Cecil Cells Bite Cells Crenated Cell Acanthocytes (Spur) Rouleaux Schistocytes PT INR APTT Specimen Type ART Sample Site L Radial pH 7.11 L* Bicarbonate Actual 6.7 L Total CO2 7 Base Excess -23 L O2 Saturation 97 ABG pCO2 21.4 L ABG pO2 118 H [place] Test Positive VBG pH VBG pO2 VBG HCO3 VBG Total CO2 VBG O2 Sat (Calc) VBG Base Excess POC Mix VBG pCO2 Pt Tmp O2 Delivery Device Room Air Sodium 145 Potassium 5.1 Chloride 126 H Carbon Dioxide 9.0 L* Anion Gap 10 BUN 101 H* Creatinine 5.35 H Estim Creat Clear Calc 10.98 Est GFR (MDRD) Af Amer 10 L Est GFR (MDRD) Non-Af 8 L BUN/Creatinine Ratio 18.9 Glucose 104 Serum Osmolality Lactic Acid Calcium 9.2 Phosphorus Magnesium Total Bilirubin AST ALT Alkaline Phosphatase Troponin I Total Protein Albumin Globulin Albumin/Globulin Ratio TSH Urine Color Urine Clarity Urine pH Ur Specific [place] Urine Protein Urine Glucose (UA) Urine Ketones Urine Occult Blood Urine Nitrite Urine Bilirubin Urine Urobilinogen Ur Leukocyte Esterase Urine RBC Urine WBC Ur Squamous Epith Cells Urine Bacteria Urine Mucus Urine Osmolality 344 U Random Total Protein 69.3 H Ur Random Sodium 71 Urine Creatinine 54.00 Urine Chloride 82 Urine Urea Nitrogen 388 POC Glucose Blood Type Antibody Screen Crossmatch 08/21/20 08/22/20 08/22/20 Unknown 04:30 04:30 WBC Cancelled Corrected WBC Cancelled RBC Cancelled Hgb Cancelled Hct Cancelled MCV Cancelled MCH Cancelled MCHC Cancelled RDW Std Deviation Cancelled RDW Coeff of Mica Cancelled Plt Count Cancelled MPV Cancelled Immature Gran % (Auto) Cancelled Neut % (Auto) Cancelled Lymph % (Auto) Cancelled Ada % (Auto) Cancelled Eos % (Auto) Cancelled Baso % (Auto) Cancelled Absolute Neuts (auto) Cancelled Absolute Lymphs (auto) Cancelled Total Counted Cancelled Neutrophils % (Manual) Cancelled Band Neutrophils % Cancelled Lymphocytes % (Manual) Cancelled Monocytes % (Manual) Cancelled Eosinophils % (Manual) Cancelled Basophils % (Manual) Cancelled Metamyelocytes % Cancelled Myelocytes % Cancelled Promyelocytes % Cancelled Blast Cells % Cancelled Plasma Cell % (Manual) Cancelled Other Cells % Cancelled Nucleated RBC % Cancelled Nucleated RBCs/100 WBC Cancelled Differential Comment Cancelled Diff Path Review Cancelled Hypersegmented Neuts Cancelled Atypical Lymphocytes Cancelled Reactive Lymphocytes Cancelled Smudge Cells Cancelled Toxic Granulation Cancelled Toxic Vacuolation Cancelled Dohle Bodies Cancelled Alireza Rods Cancelled Platelet Estimate Cancelled Plt Morphology Comment Cancelled RBC Morphology Cancelled Polychromasia Cancelled Hypochromasia Cancelled Poikilocytosis Cancelled Basophilic Stippling Cancelled Anisocytosis Cancelled Microcytosis Cancelled Macrocytosis Cancelled Spherocytes Cancelled Sickle Cells Cancelled Target Cells Cancelled Tear Drop Cells Cancelled Ovalocytes Cancelled Stomatocytes Cancelled [place] Bodies Cancelled Jeet Cells Cancelled Bite Cells Cancelled Crenated Cell Cancelled Acanthocytes (Spur) Cancelled Rouleaux Cancelled Schistocytes Cancelled PT INR APTT Specimen Type Sample Site pH Bicarbonate Actual Total CO2 Base Excess O2 Saturation ABG pCO2 ABG pO2 [place] Test VBG pH VBG pO2 VBG HCO3 VBG Total CO2 VBG O2 Sat (Calc) VBG Base Excess POC Mix VBG pCO2 Pt Tmp O2 Delivery Device Sodium Cancelled Potassium Cancelled Chloride Cancelled Carbon Dioxide Cancelled Anion Gap Cancelled BUN Cancelled Creatinine Cancelled Estim Creat Clear Calc Cancelled Est GFR (MDRD) Af Amer Cancelled Est GFR (MDRD) Non-Af Cancelled BUN/Creatinine Ratio Cancelled Glucose Cancelled Serum Osmolality Lactic Acid Calcium Cancelled Phosphorus Cancelled Magnesium 1.5 L Total Bilirubin AST ALT Alkaline Phosphatase Troponin I Total Protein Albumin Globulin Albumin/Globulin Ratio TSH Cancelled Urine Color Urine Clarity Urine pH Ur Specific [place] Urine Protein Urine Glucose (UA) Urine Ketones Urine Occult Blood Urine Nitrite Urine Bilirubin Urine Urobilinogen Ur Leukocyte Esterase Urine RBC Urine WBC Ur Squamous Epith Cells Urine Bacteria Urine Mucus Urine Osmolality U Random Total Protein Ur Random Sodium Urine Creatinine Urine Chloride Urine Urea Nitrogen POC Glucose Blood Type Antibody Screen Crossmatch 08/22/20 08/22/20 08/22/20 05:24 05:24 05:24 WBC 6.2 Corrected WBC RBC 1.84 L Hgb 5.6 L* Hct 17.2 L MCV 93.5 MCH 30.4 MCHC 32.6 RDW Std Deviation 57.3 H RDW Coeff of Mica 17.2 H Plt Count 145 L MPV 9.5 Immature Gran % (Auto) 0.500 Neut % (Auto) 73.8 H Lymph % (Auto) 18.4 L Ada % (Auto) 5.9 Eos % (Auto) 1.1 Baso % (Auto) 0.3 Absolute Neuts (auto) 4.5 Absolute Lymphs (auto) 1.13 Total Counted Neutrophils % (Manual) Band Neutrophils % Lymphocytes % (Manual) Monocytes % (Manual) Eosinophils % (Manual) Basophils % (Manual) Metamyelocytes % Myelocytes % Promyelocytes % Blast Cells % Plasma Cell % (Manual) Other Cells % Nucleated RBC % 0 Nucleated RBCs/100 WBC Differential Comment SCANNED Diff Path Review May foll Hypersegmented Neuts Atypical Lymphocytes Reactive Lymphocytes Smudge Cells Toxic Granulation Toxic Vacuolation Dohle Bodies Alireza Rods Platelet Estimate Plt Morphology Comment RBC Morphology Polychromasia Hypochromasia Poikilocytosis Basophilic Stippling Anisocytosis RARE Microcytosis RARE Macrocytosis Spherocytes Sickle Cells Target Cells Tear Drop Cells Ovalocytes Stomatocytes [place] Bodies Cecil Cells Bite Cells Crenated Cell Acanthocytes (Spur) Rouleaux Schistocytes PT INR APTT Specimen Type Sample Site pH Bicarbonate Actual Total CO2 Base Excess O2 Saturation ABG pCO2 ABG pO2 [place] Test VBG pH VBG pO2 VBG HCO3 VBG Total CO2 VBG O2 Sat (Calc) VBG Base Excess POC Mix VBG pCO2 Pt Tmp O2 Delivery Device Sodium 146 H Potassium 3.4 L Chloride 121 H Carbon Dioxide 17.0 L Anion Gap 8 BUN 91 H Creatinine 4.19 H Estim Creat Clear Calc 14.26 Est GFR (MDRD) Af Amer 14 L Est GFR (MDRD) Non-Af 11 L BUN/Creatinine Ratio 21.7 H Glucose 127 H Serum Osmolality Lactic Acid Calcium 8.0 L Phosphorus 3.0 Magnesium Total Bilirubin AST ALT Alkaline Phosphatase Troponin I Total Protein Albumin Globulin Albumin/Globulin Ratio TSH 0.81 Urine Color Urine Clarity Urine pH Ur Specific [place] Urine Protein Urine Glucose (UA) Urine Ketones Urine Occult Blood Urine Nitrite Urine Bilirubin Urine Urobilinogen Ur Leukocyte Esterase Urine RBC Urine WBC Ur Squamous Epith Cells Urine Bacteria Urine Mucus Urine Osmolality U Random Total Protein Ur Random Sodium Urine Creatinine Urine Chloride Urine Urea Nitrogen POC Glucose Blood Type B POSITIVE Antibody Screen NEGATIVE Crossmatch See Detail Microbiology 08/21/20 13:40 Mucosa - Nose SARS-CoV-2 Antigen (Rapid) - Final Clinical Impression(s) from Imaging Studies Chest X-Ray 08/21/20 10:15 IMPRESSION: Hyperinflation. The lungs are clear. Electronically Signed: Raheem Alvarez MD at 11:08 EST , Service support , Abdomen/Pelvis CT 08/21/20 11:48 IMPRESSION: Stable examination. Ileostomy is seen in the right lower quadrant with stable appearance of the bilateral hydronephrosis slightly more prominent on the left side. Stable bilateral nonobstructive intrarenal calculi. Electronically Signed: Raheem Alvarez MD at 12:18 EST , Service support , Renal Ultrasound 08/21/20 16:57 IMPRESSION: 1. Increased renal cortical echogenicity of the bilateral kidneys consistent with medical renal disease. 2. Bilateral hydronephrosis, left greater than right. This correlates with the CT findings. 3. Small simple right renal cyst. No further workup required. Electronically Signed: Vince Allen DO at 19:03 EST Tel [phone], Service support , Medical Necessity - Tobacco Use Smoking Status: Current every day smoker Assessment/Plan All Active Problems (Last Reviewed 07/25/20 @ 12:46 by July Thomas) SOO (acute kidney injury) (Acute) Uremia (Acute) Hyperkalemia (Acute) Hypotension (Acute) Encounter for education (Resolved) RECOMMENDATIONS: 1. Likely okay to discontinue bicarbonate drip after the next liter 2. Await response to blood transfusions 3. Check stool guaiac 4. Hold on reinitiation of Eliquis given decreased blood counts 5. Hold lisinopril and spironolactone IMPRESSIONS: 1. Metabolic encephalopathy secondary to acute kidney injury Patient with significant uremia on laboratory work-up. Patient also has hyperkalemia that is being addressed. Patient appears to have responded well to conservative therapy. Patient is more appropriate today. 2. Hyperkalemia with nonanion gap metabolic acidosis secondary to acute kidney injury Resolved. Patient has no peaked T waves at this time. Patient has been treated. Defer to urology on assessment of postobstructive component. Significant diarrhea overnight secondary to Kayexalate. 3. History of bladder cancer with neoadjuvant chemotherapy, cystectomy and current hydronephrosis Consider urology evaluation along with a renal ultrasound. Patient does appear to have some urostomy output that is infected. Patient is on antibiotics at this time. 4. Recent PE/chronic systolic CHF Patient on baseline 10 a inhibitor. Patient did have decreased hemoglobin this morning. Clinical suspicion is patient was volume depleted on presentation and this was the true hemoglobin. Will check stool guaiac. Hold 10 a inhibitor for now. 5. Hypovolemic shock Unclear etiology. This may be a result or an etiology of patient's acute kidney injury. Clinical suspicion for post renal and prerenal etiology. Patient should receive fluid boluses as necessary. Oxygenation appears to be doing well at this time. Patient with significant decrease in hemoglobin. Clinical suspicion that this may have led to the presentation. Patient with no obvious bleeding at this time, but Eliquis has been held. Patient has had some diarrhea, but also received Kayexalate and no report of melena. We will transfuse blood products and monitor blood pressure. 6. Encephalopathy/multiple allergies/advanced age/recent bladder cancer Complicates care, management, recovery and prognosis. Patient appears to be tolerating antibiotics well despite reported allergy. Continue to monitor clinically. Inpatient E&M: 08341 Subs Hosp L3
[2020-08-22] MEDS: Pantoprazole Sodium 40 MG Tablet PO (08:48)
[2020-08-22] MEDS: Psyllium 1 PACKET PO (08:48)
[2020-08-22] MEDS: Nystatin Powder 15gm Bottle 1 APPLIC TOPICAL (08:48)
[2020-08-22] MEDS: Menthol/Lanolin/Calamine/Znox 113 GM Tube 1 APPLIC TOPICAL (08:49)
--- NOTE | 2020-08-22 11:26 | CASEMGMT ---
Per RN JOSÉ LUIS patient has Passport services and her ed case manager is Jessie Torres. SW called Jessie and let her know that patient is in the hospital. She said patient gets 4 hours of personal care a day and her daughter is her aid through [facility]. Patient also has a medical alert button. CUAUHTEMOC told her RN JOSÉ LUIS spoke with patient's daughter and she expressed interest in patient going to TCU if patient qualifies and agrees to this. SW told her SW will keep her updated. Mona CHOWDHURY MSW
--- NOTE | 2020-08-22 11:36 | CASEMGMT ---
RN CM Assessment Note Introduced role of CM to patient to . Patient is not able to participate in assessment. Demographics, PCP verified. Patient lives @ home with her who works during the day, and cares for patient in the evening. Daughter Apryl cares for patient during the day and works on the weekends. Patient is not ambulating currently. Family is providing all care for her. states patient has been declining at home, refusing care and not eating. They had consulted [facility] for Palliative Care Referral, however pt's insurance was not [employer] and did not cover cost. Per daughter, they may try again in September as pt's insurance will change to MCR AB. The daughter and are wishing to continue current treatment of patient in the hospital and not pursue Hospice care at this time. Per , ok to call daughter as she is handling all the medical issues. Danilo Pink was contacted and able to assist in providing information. Presentation: altered mental status, weakness and overall decline. PMH: bladder cancer, urostomy placement, CHF, COPD, cardiomyopathy. Diagnosis: SOO, acidosis, obstructive uropathy, hyperkalemia PCP: Dr. José Miguel Guajardo Specialists: oncology Insurance: [employer] HMO; per daughter is to change to MCR AB in Preferred Pharmacy: [facility], [place] Prescription Benefit: yes LNOK: and daughter Living Arrangements: Lives in two story home, but only utilizes first floor. Ramp into home. Pt is currently not doing any self care. Daughter feels patient could be doing more for herself, but has given up. She feels pt is depressed. Family is providing all care for patient who is either in bed, or in a wheelchair. Family provides meals and completes edger hand. Tranportation: family drives DME: Hospital bed, wheelchairs, electric scooter, walker, ramp to entrance of home. No home oxygen or cpap use. Passport Services: through [facility]. Jessie Christianson is CM. Danilo Pink is hired through [place] to provide 4 hours of aide services per day for the patient. HHC: Attentive in past. If HHC if recommended, daughter would like [facility] for skilled care. -[employer] had provided a nurse practioner through [facility] to visit patient every 3 weeks, however this will end once patient is on MCR AB. SNF: none. Daughter feels SNF would benefit patient and would prefer TCU. She states the patient has declined in the past. Patient DC Goals: Home DC Plan: TBD. SNF vs Home with HHC and Palliative Care Referral. CM available for discharge planning coordination. Contact CM for any concerns/needs that may arise. Jose Elias GRAVESN RN ACM
--- NOTE | 2020-08-22 13:19 | PCM.PN.REN ---
Patient Problems: Active and Suspected Problems (Last Reviewed 07/25/20 @ 12:46 by July Thomas) SOO (acute kidney injury) (Acute) Uremia (Acute) Hyperkalemia (Acute) Hypotension (Acute) Subjective: No shortness of breath no chest pain - Physical Exam Vitals/I&O's: Vital Signs Temp Pulse Resp BP Pulse Ox 98 F 79 20 H 94/45 L 92 08/22/20 12:44 08/22/20 12:44 08/22/20 12:44 08/22/20 12:44 08/22/20 12:44 Oxygen Delivery Method Room Air Weight: 72.3 kg Body Mass Index (BMI) 31.6 Intake and Output for Last 24 Hours 08/20/20 08/21/20 08/22/20 23:59 23:59 23:59 Intake Total 3671.5 / 3671.5 3257.5 / 3257.5 Output Total 600 / 750 900 / 900 Balance 3071.5 / 2921.5 2357.5 / 2357.5 General: Alert HEENT: Atraumatic, Normocephalic Oral: Moist Mucosa Neck: Supple, Trachea Midline Lungs: Clear to auscultation, Normal air movement Cardiovascular: Normal S1, Normal S2 Abdomen: Bowel Sounds Present, Soft Extremities: No edema Microbiology Past 72 Hours 08/21/20 12:53 Urine, Catheterized Urine Culture - Preliminary Presumptive E. coli 08/21/20 13:40 Mucosa - Nose SARS-CoV-2 Antigen (Rapid) - Final Laboratory Results 08/21/20 14:00: Specimen Type DOMONIQUE, VBG pH 7.02 L*, VBG pO2 48 H, VBG HCO3 6 L, VBG Total CO2 7 L, VBG O2 Sat (Calc) 64, VBG Base Excess -25 L, POC Mix VBG pCO2 Pt Tmp 23.3 L 08/21/20 14:25: Sodium Cancelled, Potassium Cancelled, Chloride Cancelled, Carbon Dioxide Cancelled, Anion Gap Cancelled, BUN Cancelled, Creatinine Cancelled, Estim Creat Clear Calc Cancelled, Est GFR (MDRD) Af Amer Cancelled, Est GFR (MDRD) Non-Af Cancelled, BUN/Creatinine Ratio Cancelled, Glucose Cancelled, Calcium Cancelled 08/21/20 14:25: Serum Osmolality 333 H 08/21/20 15:30: POC Glucose 98 08/21/20 15:50: Urine Osmolality 344, U Random Total Protein 69.3 H, Ur Random Sodium 71, Urine Creatinine 54.00, Urine Chloride 82, Urine Urea Nitrogen 388 08/21/20 17:11: Specimen Type ART, Sample Site L Radial, pH 7.11 L*, Bicarbonate Actual 6.7 L, Total CO2 7, Base Excess -23 L, O2 Saturation 97, ABG pCO2 21.4 L, ABG pO2 118 H, [place] Test Positive, O2 Delivery Device Room Air 08/21/20 18:15: Sodium 145, Potassium 5.1, Chloride 126 H, Carbon Dioxide 9.0 L*, Anion Gap 10, BUN 101 H*, Creatinine 5.35 H, Estim Creat Clear Calc 10.98, Est GFR (MDRD) Af Amer 10 L, Est GFR (MDRD) Non-Af 8 L, BUN/Creatinine Ratio 18.9, Glucose 104, Calcium 9.2 08/21/20 : Magnesium 1.5 L 08/22/20 04:30: Sodium Cancelled, Potassium Cancelled, Chloride Cancelled, Carbon Dioxide Cancelled, Anion Gap Cancelled, BUN Cancelled, Creatinine Cancelled, Estim Creat Clear Calc Cancelled, Est GFR (MDRD) Af Amer Cancelled, Est GFR (MDRD) Non-Af Cancelled, BUN/Creatinine Ratio Cancelled, Glucose Cancelled, Calcium Cancelled, Phosphorus Cancelled, TSH Cancelled 08/22/20 04:30: WBC Cancelled, Corrected WBC Cancelled, RBC Cancelled, Hgb Cancelled, Hct Cancelled, MCV Cancelled, MCH Cancelled, MCHC Cancelled, RDW Std Deviation Cancelled, RDW Coeff of Mica Cancelled, Plt Count Cancelled, MPV Cancelled, Immature Gran % (Auto) Cancelled, Neut % (Auto) Cancelled, Lymph % (Auto) Cancelled, [place] % (Auto) Cancelled, Eos % (Auto) Cancelled, Baso % (Auto) Cancelled, Absolute Neuts (auto) Cancelled, Absolute Lymphs (auto) Cancelled, Total Counted Cancelled, Neutrophils % (Manual) Cancelled, Band Neutrophils % Cancelled, Lymphocytes % (Manual) Cancelled, Monocytes % (Manual) Cancelled, Eosinophils % (Manual) Cancelled, Basophils % (Manual) Cancelled, Metamyelocytes % Cancelled, Myelocytes % Cancelled, Promyelocytes % Cancelled, Blast Cells % Cancelled, Plasma Cell % (Manual) Cancelled, Other Cells % Cancelled, Nucleated RBC % Cancelled, Nucleated RBCs/100 WBC Cancelled, Differential Comment Cancelled, Diff Path Review Cancelled, Hypersegmented Neuts Cancelled, Atypical Lymphocytes Cancelled, Reactive Lymphocytes Cancelled, Smudge Cells Cancelled, Toxic Granulation Cancelled, Toxic Vacuolation Cancelled, Dohle Bodies Cancelled, Alireza Rods Cancelled, Platelet Estimate Cancelled, Plt Morphology Comment Cancelled, RBC Morphology Cancelled, Polychromasia Cancelled, Hypochromasia Cancelled, Poikilocytosis Cancelled, Basophilic Stippling Cancelled, Anisocytosis Cancelled, Microcytosis Cancelled, Macrocytosis Cancelled, Spherocytes Cancelled, Sickle Cells Cancelled, Target Cells Cancelled, Tear Drop Cells Cancelled, Ovalocytes Cancelled, Stomatocytes Cancelled, [place] Bodies Cancelled, [place] Cells Cancelled, Bite Cells Cancelled, Crenated Cell Cancelled, Acanthocytes (Spur) Cancelled, Rouleaux Cancelled, Schistocytes Cancelled 08/22/20 05:24: Sodium 146 H, Potassium 3.4 L, Chloride 121 H, Carbon Dioxide 17.0 L, Anion Gap 8, BUN 91 H, Creatinine 4.19 H, Estim Creat Clear Calc 14.26, Est GFR (MDRD) Af Amer 14 L, Est GFR (MDRD) Non-Af 11 L, BUN/Creatinine Ratio 21.7 H, Glucose 127 H, Calcium 8.0 L, Phosphorus 3.0, TSH 0.81 08/22/20 05:24: WBC 6.2, RBC 1.84 L, Hgb 5.6 L*, Hct 17.2 L, MCV 93.5, MCH 30.4, MCHC 32.6, RDW Std Deviation 57.3 H, RDW Coeff of Mica 17.2 H, Plt Count 145 L, MPV 9.5, Immature Gran % (Auto) 0.500, Neut % (Auto) 73.8 H, Lymph % (Auto) 18.4 L, [place] % (Auto) 5.9, Eos % (Auto) 1.1, Baso % (Auto) 0.3, Absolute Neuts (auto) 4.5, Absolute Lymphs (auto) 1.13, Nucleated RBC % 0, Differential Comment SCANNED, Diff Path Review May foll, Anisocytosis RARE, Microcytosis RARE 08/22/20 05:24: Blood Type B POSITIVE, Antibody Screen NEGATIVE, Crossmatch See Detail Current Medications Acetaminophen (Acetaminophen 325 Mg Tablet) 650 mg PO Q6H PRN PRN PRN Reason: Pain Score 1-10/Temp > 100.7 F Albuterol Sulfate (Albuterol 2.5 Mg/3 Ml Vial.Neb.) 2.5 mg INHALATION Q2H PRN PRN PRN Reason: SOB/Wheezing Calamine/Phenol (Menthol/Lanolin/Calamine/Znox 113 Gm Tube) 1 applic TOPICAL BID [facility]; Protocol Last Admin: 08/22/20 08:49 Dose: 1 applicatio Documented by: Sodium Bicarbonate 150 meq/ (Dextrose) 1,150 mls @ 150 mls/hr IV .[id number] [facility] Last Infusion: 08/22/20 08:45 Dose: 0 mls/hr Documented by: Sodium Chloride () 250 mls @ 15 mls/hr IV .[id number] PRN PRN Reason: Saline Flush Sodium Chloride () 250 mls @ 15 mls/hr IV .[id number] PRN PRN Reason: Additional IVPB Infusion Morphine Sulfate (Morphine 2 Mg/Ml Syringe) 2 mg IV Q3H PRN PRN PRN Reason: Pain Score 6-10 Nitroglycerin (Nitroglycerin (Inpatient Use) 0.4 Mg Tab.Subl) 0.4 mg SUBLINGUAL Q5M PRN PRN Reason: CARDIAC/CHEST PAIN Nutritional Formula (Lactose Free) (Ensure Clear 120 Ml Liquid) 120 ml PO 4X/DAY [facility] Last Admin: 08/22/20 08:49 Dose: Not Given Documented by: Nystatin (Nystatin Powder 15gm Bottle) 1 applic TOPICAL BID [facility]; Protocol Last Admin: 08/22/20 08:48 Dose: 1 applicatio Documented by: Oxycodone HCl (Oxycodone 5 Mg Tablet) 5 mg PO Q4H PRN PRN PRN Reason: Pain Score 4-5 Last Admin: 08/21/20 15:52 Dose: 5 mg Documented by: Pantoprazole Sodium (Pantoprazole Sodium 40 Mg Tablet) 40 mg PO DAILY [facility] Last Admin: 08/22/20 08:48 Dose: 40 mg Documented by: Prochlorperazine Edisylate (Prochlorperazine 10 Mg/2 Ml Vial) 5 mg IV Q4H PRN PRN PRN Reason: Breakthrough Nausea/Vomiting Psyllium Hydrophilic Mucilloid (Psyllium 1 Packet) 1 packet PO DAILY [facility] Last Admin: 08/22/20 08:48 Dose: 1 packet Documented by: Senna/Docusate Sodium (Senna/Docusate Sodium 1 Tablet) 2 tablet PO BID PRN PRN Reason: Constipation Sodium Chloride (0.9% Saline Lock 10 Ml Syringe) 10 - 40 ml IV UD PRN PRN Reason: SALINE FLUSH Trazodone HCl (Trazodone 50 Mg Tablet) 50 mg PO QHS PRN PRN PRN Reason: Insomnia Medical Necessity - Tobacco Use Smoking Status: Current every day smoker Assessment/Plan All Active Problems (Last Reviewed 07/25/20 @ 12:46 by July Thoams) SOO (acute kidney injury) (Acute) Uremia (Acute) Hyperkalemia (Acute) Hypotension (Acute) Encounter for education (Resolved) SOO likely prerenal/ATN with severe hypotension and fluid depletion also possible some degree of obstructive uropathy hyperkalemia resolved Metabolic acidosis Bilateral hydronephrosis with ileal conduit and urostomy CKD Baseline serum creatinine 1.5-1.6 but in July was 3 Leukocytosis Continue IV fluids as you are doing with sodium bicarbonate. urology evaluation For bilateral hydronephrosis worse on one side with severe SOO and had SOO in Jul with Scr 3 follow-up urine culture. acidosis improving will likely stop IV fluids with bicarbonate tomorrow if bicarbonate in normal range and switch to bicarb high-dose p.o. tomorrow Hyperkalemia resolved keep MAP more than 65 Avoid nephrotoxins Bolus as needed with normal saline if recurrent hypotension
[2020-08-22 14:24] LABS: Pathologist Review Reviewed
[2020-08-22 15:06] LABS: Hematocrit 25.3 % (37-47); Hemoglobin 8.5 g/dL (12.0-15.0)
--- NOTE | 2020-08-22 15:17 | PN_ITS ---
Patient Problems: Active and Suspected Problems (Last Reviewed 07/25/20 @ 12:46 by July Thomas) SOO (acute kidney injury) (Acute) Uremia (Acute) Hyperkalemia (Acute) Hypotension (Acute) Reason for Visit: Dizziness upon standing with therapy. Vitals/I&O's: Vital Signs Temp Pulse Resp BP Pulse Ox 36.6 C 74 15 98/51 L 99 08/22/20 12:44 08/22/20 15:00 08/22/20 15:00 08/22/20 15:00 08/22/20 15:00 Oxygen Delivery Method Room Air Weight: 72.3 kg Body Mass Index (BMI) 31.6 Intake and Output for Last 24 Hours 08/20/20 08/21/20 08/22/20 23:59 23:59 23:59 Intake Total 3671.5 / 3671.5 3257.5 / 3257.5 Output Total 600 / 750 900 / 900 Balance 3071.5 / 2921.5 2357.5 / 2357.5 General: Alert, No apparent distress HEENT: Atraumatic, Normocephalic Oral: Moist Mucosa, No Gingival or Mucosal Lesions/ Ulcerations Neck: No Nodes, Thyroid Normal Size and Texture Lungs: Clear to auscultation, Normal air movement, No rhonchi, No wheeze Cardiovascular: Regular rate, Regular Rhythm, Normal S1, Normal S2 Abdomen: Bowel Sounds Present, Soft, Non Tender, Non-Distended, No Hepato- splenomegaly Extremities: No edema, No Calf Tenderness Skin: No rashes, No breakdown Psych/Mental Status: Normal Affect, Appropriate Microbiology Past 72 Hours 08/21/20 12:53 Urine, Catheterized Urine Culture - Preliminary Presumptive E. coli 08/21/20 13:40 Mucosa - Nose SARS-CoV-2 Antigen (Rapid) - Final Laboratory Results 08/21/20 15:30: POC Glucose 98 08/21/20 15:50: Urine Osmolality 344, U Random Total Protein 69.3 H, Ur Random Sodium 71, Urine Creatinine 54.00, Urine Chloride 82, Urine Urea Nitrogen 388 08/21/20 17:11: Specimen Type ART, Sample Site L Radial, pH 7.11 L*, Bicarbonate Actual 6.7 L, Total CO2 7, Base Excess -23 L, O2 Saturation 97, ABG pCO2 21.4 L, ABG pO2 118 H, [place] Test Positive, O2 Delivery Device Room Air 08/21/20 18:15: Sodium 145, Potassium 5.1, Chloride 126 H, Carbon Dioxide 9.0 L* , Anion Gap 10, BUN 101 H*, Creatinine 5.35 H, Estim Creat Clear Calc 10.98, Est GFR (MDRD) Af Amer 10 L, Est GFR (MDRD) Non-Af 8 L, BUN/Creatinine Ratio 18.9, Glucose 104, Calcium 9.2 08/21/20 : Magnesium 1.5 L 08/22/20 04:30: Sodium Cancelled, Potassium Cancelled, Chloride Cancelled, Carbon Dioxide Cancelled, Anion Gap Cancelled, BUN Cancelled, Creatinine Cancelled, Estim Creat Clear Calc Cancelled, Est GFR (MDRD) Af Amer Cancelled, Est GFR (MDRD) Non-Af Cancelled, BUN/Creatinine Ratio Cancelled, Glucose Cancelled, Calcium Cancelled, Phosphorus Cancelled, TSH Cancelled 08/22/20 04:30: WBC Cancelled, Corrected WBC Cancelled, RBC Cancelled, Hgb Cancelled, Hct Cancelled, MCV Cancelled, MCH Cancelled, MCHC Cancelled, RDW Std Deviation Cancelled, RDW Coeff of Mica Cancelled, Plt Count Cancelled, MPV Cancelled, Immature Gran % (Auto) Cancelled, Neut % (Auto) Cancelled, Lymph % (Auto) Cancelled, [place] % (Auto) Cancelled, Eos % (Auto) Cancelled, Baso % (Auto) Cancelled, Absolute Neuts (auto) Cancelled, Absolute Lymphs (auto) Cancelled, Total Counted Cancelled, Neutrophils % (Manual) Cancelled, Band Neutrophils % Cancelled, Lymphocytes % (Manual) Cancelled, Monocytes % (Manual) Cancelled, Eosinophils % (Manual) Cancelled, Basophils % (Manual) Cancelled, Metamyelocytes % Cancelled, Myelocytes % Cancelled, Promyelocytes % Cancelled, Blast Cells % Cancelled, Plasma Cell % (Manual) Cancelled, Other Cells % Cancelled, Nucleated RBC % Cancelled, Nucleated RBCs/100 WBC Cancelled, Differential Comment Cancelled, Diff Path Review Cancelled, Hypersegmented Neuts Cancelled, Atypical Lymphocytes Cancelled, Reactive Lymphocytes Cancelled, Smudge Cells Cancelled, Toxic Granulation Cancelled, Toxic Vacuolation Cancelled, Dohle Bodies Cancelled, Alireza Rods Cancelled, Platelet Estimate Cancelled, Plt Morphology Comment Cancelled, RBC Morphology Cancelled, Polychromasia Cancelled, Hypochromasia Cancelled, Poikilocytosis Cancelled, Basophilic Stippling Cancelled, Anisocytosis Cancelled, Microcytosis Cancelled, Macrocytosis C ancelled, Spherocytes Cancelled, Sickle Cells Cancelled, Target Cells Cancelled, Tear Drop Cells Cancelled, Ovalocytes Cancelled, Stomatocytes Cancelled, Lorenzo- [place] Bodies Cancelled, [place] Cells Cancelled, Bite Cells Cancelled, Crenated Cell Cancelled, Acanthocytes (Spur) Cancelled, Rouleaux Cancelled, Schistocytes Cancelled 08/22/20 05:24: Sodium 146 H, Potassium 3.4 L, Chloride 121 H, Carbon Dioxide 17.0 L, Anion Gap 8, BUN 91 H, Creatinine 4.19 H, Estim Creat Clear Calc 14.26, Est GFR (MDRD) Af Amer 14 L, Est GFR (MDRD) Non-Af 11 L, BUN/Creatinine Ratio 21.7 H, Glucose 127 H, Calcium 8.0 L, Phosphorus 3.0, TSH 0.81 08/22/20 05:24: WBC 6.2, RBC 1.84 L, Hgb 5.6 L*, Hct 17.2 L, MCV 93.5, MCH 30.4, MCHC 32.6, RDW Std Deviation 57.3 H, RDW Coeff of Mica 17.2 H, Plt Count 145 L, MPV 9.5, Immature Gran % (Auto) 0.500, Neut % (Auto) 73.8 H, Lymph % (Auto) 18.4 L, [place] % (Auto) 5.9, Eos % (Auto) 1.1, Baso % (Auto) 0.3, Absolute Neuts (auto) 4.5, Absolute Lymphs (auto) 1.13, Nucleated RBC % 0, Differential Comment SCANNED, Diff Path Review Reviewed, Anisocytosis RARE, Microcytosis RARE 08/22/20 05:24: Blood Type B POSITIVE, Antibody Screen NEGATIVE, Crossmatch See Detail 08/22/20 14:10: Hgb 8.5 L, Hct 25.3 L Current Medications Acetaminophen (Acetaminophen 325 Mg Tablet) 650 mg PO Q6H PRN PRN PRN Reason: Pain Score 1-10/Temp > 100.7 F Albuterol Sulfate (Albuterol 2.5 Mg/3 Ml Vial.Neb.) 2.5 mg INHALATION Q2H PRN PRN PRN Reason: SOB/Wheezing Calamine/Phenol (Menthol/Lanolin/Calamine/Znox 113 Gm Tube) 1 applic TOPICAL BID [facility]; Protocol Last Admin: 08/22/20 08:49 Dose: 1 applicatio Documented by: Sodium Bicarbonate 150 meq/ (Dextrose) 1,150 mls @ 150 mls/hr IV .Q7H40M [facility] Last Admin: 08/22/20 13:33 Dose: Not Given Documented by: Sodium Chloride () 250 mls @ 15 mls/hr IV .[id number] PRN PRN Reason: Saline Flush Sodium Chloride () 250 mls @ 15 mls/hr IV .[id number] PRN PRN Reason: Additional IVPB Infusion Morphine Sulfate (Morphine 2 Mg/Ml Syringe) 2 mg IV Q3H PRN PRN PRN Reason: Pain Score 6-10 Nitroglycerin (Nitroglycerin (Inpatient Use) 0.4 Mg Tab.Subl) 0.4 mg SUBLINGUAL Q5M PRN PRN Reason: CARDIAC/CHEST PAIN Nutritional Formula (Lactose Free) (Ensure Clear 120 Ml Liquid) 120 ml PO 4X/DAY [facility] Last Admin: 08/22/20 13:34 Dose: Not Given Documented by: Nystatin (Nystatin Powder 15gm Bottle) 1 applic TOPICAL BID [facility]; Protocol Last Admin: 08/22/20 08:48 Dose: 1 applicatio Documented by: Oxycodone HCl (Oxycodone 5 Mg Tablet) 5 mg PO Q4H PRN PRN PRN Reason: Pain Score 4-5 Last Admin: 08/21/20 15:52 Dose: 5 mg Documented by: Pantoprazole Sodium (Pantoprazole Sodium 40 Mg Tablet) 40 mg PO DAILY [facility] Last Admin: 08/22/20 08:48 Dose: 40 mg Documented by: Prochlorperazine Edisylate (Prochlorperazine 10 Mg/2 Ml Vial) 5 mg IV Q4H PRN PRN PRN Reason: Breakthrough Nausea/Vomiting Psyllium Hydrophilic Mucilloid (Psyllium 1 Packet) 1 packet PO DAILY [facility] Last Admin: 08/22/20 08:48 Dose: 1 packet Documented by: Senna/Docusate Sodium (Senna/Docusate Sodium 1 Tablet) 2 tablet PO BID PRN PRN Reason: Constipation Sodium Chloride (0.9% Saline Lock 10 Ml Syringe) 10 - 40 ml IV UD PRN PRN Reason: SALINE FLUSH Trazodone HCl (Trazodone 50 Mg Tablet) 50 mg PO QHS PRN PRN PRN Reason: Insomnia STROKE Vital Signs/Narrative: Vital Signs Temp Pulse Resp BP BP Pulse Ox 08/22/20 15:00 74 15 98/51 L 99 08/22/20 14:00 74 15 109/43 L 99 08/22/20 13:00 76 17 89/71 L 100 08/22/20 12:44 36.6 C 79 20 H 94/45 L 92 08/22/20 12:00 36.4 C L 79 19 H 94/45 L 100 08/22/20 11:40 74 Medical Necessity - Tobacco Use Smoking Status: Current every day smoker Assessment/Plan All Active Problems (Last Reviewed 07/25/20 @ 12:46 by July Thomas) SOO (acute kidney injury) (Acute) Uremia (Acute) Hyperkalemia (Acute) Hypotension (Acute) Encounter for education (Resolved) 1. SOO: * FEUrea 21.79, cw prerenal azotemia * Improved * baseline creatinine 3.08 * bilateral hydronephrosis * nephrology following * on HCO3- gtt * consult urology. 2. acute blood loss anemia * Hg down to 5.6, received 2 units PRBCs, now up to 8.5. * Monitor * check anemia labs and hemoccult 3. hyperkalemia * resolved * spironolactone and lisinopril held 4. Bladder CA * follow up with oncology as outpt. 5. VTE: anticoagulation held given anemia 6. VTE prophylaxis: SCDs. Inpatient E&M: [id number] [facility] L2
[2020-08-22 16:10] LABS: Vitamin B12 338 pg/mL (211-911)
[2020-08-22 16:12] LABS: Ferritin 348 ng/mL (8-252); Iron 32 ug/dL (50-170); Iron Binding Capacity,Total 93 ug/dL (250-450); PERCENT IRON SATURATION 34.4 % (15.0-55.0); Thyroid Stim Hormone (TSH) 0.84 uIU/mL (0.358-3.74)
[2020-08-23] VITALS (14 sets, daily range): BP systolic 107–131; BP diastolic 46–84; PULSE 63–86; RESP 15–20; TEMP 36.3–36.6; O2SAT 93–99
[2020-08-23] MEDS: Nystatin Powder 15gm Bottle 1 APPLIC TOPICAL ×2 (00:18→08:35)
[2020-08-23] MEDS: Menthol/Lanolin/Calamine/Znox 113 GM Tube 1 APPLIC TOPICAL ×2 (00:20→08:36)
[2020-08-23 04:23] LABS: Absolute Neutrophil Count 3.7 X10^3/uL (2.0-7.7); Basophil# 0.03 X10^3/uL; Basophil% 0.5 % (0-1); Eosinophils% 1.7 % (0-5); Hematocrit 24.3 % (37-47); Hemoglobin 8.4 g/dL (12.0-15.0); Lymphocyte % 27.5 % (19-41); Mean Corp Hgb Conc 34.6 g/dL (32-36); Mean Corpuscular Volume 86.8 fL (81-99); Mean Platelet Vol. 9.2 fl (6.2-12.0); Monocyte# 0.34 X10^3/uL; Monocyte% 5.9 % (0-10); NRBC Flagged by Analyzer 0 % (0-5); Neutrophil # 3.72 X10^3/uL (2.7-7.7); Neutrophil % 64.1 % (47-70); Platelet Count 139 K/mm3 (150-450); RBC Distribution Width CV 16.7 % (11.6-14.6); RBC Distribution Width SD 51.8 fl (35.1-43.9); White Blood Count 5.8 K/mm3 (4.4-11.0)
[2020-08-23 04:34] LABS: Anion Gap 6 (5-15); BUN 67 mg/dL (7-18); BUN/Creat Ratio 22.1 RATIO (10-20); Calcium,Total 7.6 mg/dL (8.5-10.1); Chloride 121 mmol/L (98-107); Creatinine, Serum 3.03 mg/dL (0.55-1.02); EST Glomerular Filtration Rate 16 mL/min (>60); Est Glom Filt Rate - Afr Amer 20 mL/min (>60); Estimated Creatinine Clearance 19.98 ml/min; Glucose 113 mg/dL (74-106); Potassium 3.1 mmol/L (3.5-5.1); Sodium Level 148 mmol/L (136-145)
[2020-08-23] MEDS: Haloperidol Lactate 5 MG/ML Vial 3 MG IV (06:54)
[2020-08-23] MEDS: 0.9% Saline Lock 10 ML Syringe IV ×4 (06:55→17:24)
--- NOTE | 2020-08-23 07:26 | PCM.CONS.U ---
Problem List (1) Bladder cancer Status: Acute Qualifiers: Bladder location: overlapping sites Qualified Code(s): C67.8 - Malignant neoplasm of overlapping sites of bladder Reason for Consult Date of Consultation: 08/23/20 Reason for Consultation: Bladder cancer, bilateral hydronephrosis History of Present Illness: The patient is a 69 year old female who has a history of advanced bladder cancer she underwent preoperative chemotherapy with 3 cycles of chemotherapy done by oncology she then underwent a radical cystoprostatectomy at [facility] and formation of an ileal conduit. She was admitted with failure to thrive dehydration and worsening renal function. CAT scan was done and she does have hydronephrosis bilaterally but this can be often normal after an ileal conduit so a loopogram would be the only way to confirm whether she has true obstruction but with hydration her creatinine has come back down. Her prognosis is guarded. 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 The thrombus is nonocclusive. 03/20/2020 Hydronephrosis of left kidney (Chronic) Abdominal wall mass (Chronic 03/20/20) Urothelial carcinoma of bladder (Chronic) Diarrhea (Chronic) Nausea & vomiting (Chronic) Medical History: Medical History (Last Reviewed 08/23/20 @ 07:[address] 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 The thrombus is nonocclusive. 03/20/2020 Hydronephrosis of left kidney (Chronic) N13.30 Abdominal wall mass (Chronic) Onset Date: 03/20/20 R22.2 Urothelial carcinoma of bladder (Chronic) C67.9 Diarrhea (Chronic) R19.7 Nausea & vomiting (Chronic) R11.2 DVT (deep venous thrombosis) I82.409 Anemia associated with chemotherapy N32.89 possible lymph node involvement in the pelvis and retroperitoneum Anemia due to chemotherapy D64.81, T45.1X5A COPD (chronic obstructive pulmonary disease) J44.9 Cancer-related pain J44.9 Chemotherapy management, encounter for Z98.890 removal of growth in throat Chemotherapy management, encounter for Z51.11 Fatigue J45.998 Frequent headaches C55 Gross hematuria R31.0 04/13/19 Narcolepsy G47.419 Neutropenia due to and not concurrent with chemotherapy Onset Date: ~03/2019 C67.9 Other hydronephrosis N13.39 04/13/19 Smoking history Z87.891 Thrombocytopenia due to drugs C67.9 Allergies Penicillins Allergy (Mild, Verified 07/25/20 12:47) rash ciprofloxacin [From Cipro] Adverse Reaction (Verified 07/25/20 12:47) Nausea/Vom/Diarrhea sulfamethoxazole [From Bactrim] Adverse Reaction (Verified 07/25/20 12:47) Nausea/Vom/Diarrhea trimethoprim [From Bactrim] Adverse Reaction (Verified 07/25/20 12:47) Nausea/Vom/Diarrhea Home Medications: Ambulatory Orders Medication Instructions Recorded traMADol [Ultram (G)] 50 mg PO BID PRN PRN 11/23/19 lisinopril 5 mg tablet 2.5 mg PO DAILY tab 04/28/20 melatonin 3 mg capsule 3 mg PO HS 04/28/20 pantoprazole 40 mg tablet,delayed 40 mg PO DAILY tab 04/28/20 release spironolactone 25 mg tablet 25 mg PO DAILY tab 04/28/20 ondansetron HCl 4 mg tablet 4 mg PO BID PRN 05/23/20 Apixaban [Eliquis] 5 mg PO BID #60 tab 05/26/20 traZODone [Desyrel] 50 mg PO QHS 05/31/20 Surgical History: Surgical History (Last Reviewed 07/25/20 @ 12:46 by July Thomas) BLADDER RESECTION 10-13-2019 Encounter for adjustment and management of vascular access device Z45.2 >5cm 04/23/19 History of hysterectomy Z90.710 UTERIINE FCANCER AGE 21 Surgical History: - - Cystectomy with urostomy placement Lives: With Family Smoking Status: Current every day smoker Alcohol: None Drugs: None Review of Systems Constitutional: Denies: Chills, Fever, Weight Change HEENT: Denies: Head Aches, Sinus Congestion, Sinus Drainage Cardiovascular: Denies: Chest Pain, Palpitations Respiratory: Denies: Cough, Shortness of breath at rest, Sputum production Gastrointestinal: Denies: Abdominal Pain, Nausea, Vomiting Genitourinary: Denies: Dysuria Musculoskeletal: Denies: Joint Pain, Joint Tenderness Skin: Denies: Rash, Wounds Neurological: Denies: Numbness, Tingling, Focal weakness Psychiatric: Denies: Anxiety, Depression, Homicidal Ideations, Suicidal Ideations Hematologic/ Lymphatic: Denies: Easy Bruising, Easy Bleeding Physical Exam - Physical Exam Vital Signs Temp 97.4 F L 08/23/20 00:00 Pulse 63 08/23/20 06:00 Resp 20 H 08/23/20 06:00 BP 108/60 08/23/20 06:00 Pulse Ox 99 08/23/20 06:00 Intake & Output 08/21/20 08/22/20 08/23/20 23:59 23:59 23:59 Intake Total 3671.5 / 3671.5 4557.5 / 4557.5 Output Total 600 / 750 1500 / 1600 550 / 550 Balance 3071.5 / 2921.5 3057.5 / 2957.5 -550 / -550 Weight: 71.1 kg 72.3 kg 73.255 kg Intake: Oral 375 / 375 240 / 240 Intake, IV Amount 3296.5 / 3296.5 3317.5 / 3317.5 0.9% Normal Saline 1,000 ML @ 1000 / 1000 999 mls/hr IV .Q1H1M ONE Rx#: [id number] 0.9% Normal Saline 1,000 ML @ 1000 / 1000 999 mls/hr IV .Q1H1M ONE Rx#: [id number] 0.9% Normal Saline 1,000 ML @ 1000 / 1000 999 mls/hr IV .Q1H1M ONE Rx#: [id number] Magnesium Sulfate 2 GM In 0.9% 104 / 104 Normal Saline 100 ML @ 52 mls/ hr IV X1 ONE Rx#:[id number] Potassium Chloride 40 MEQ/20 ML 120 / 120 In 0.9% Normal Saline 100 ML @ 100 mls/hr IV BOLUS X1 ONE Rx# :[id number] Rocephin 1 gm In 50 ml @ 100 50 / 50 mls/hr IV X1 ONE Rx#:[id number] Sodium Bicarbonate 50 MEQ/50 ML 1142.5 / 1142.5 2197.5 / 2197.5 In Dextrose 5%-Water 1,000 ML @ 150 mls/hr IV .Q7H40M COUNT INCLUDES THE [facility] Rx# :[id number] Blood Product 1000 / 1000 Leuko-Reduced Red Blood Cells 0 / 0 Unit [id number] Leuko-Reduced Red Blood Cells 400 / 400 Unit [id number] Output: Urine 600 / 750 1500 / 1600 550 / 550 Other: Number of Bowel Movements 1 1 1 General: Alert HEENT: PERRLA Neck: Supple Lungs: Normal air movement Abdomen: Soft, Obese Microbiology Past 72 Hours 08/21/20 10:45 Blood Culture - Preliminary Blood Culture (Wb) - Left Hand No growth in 48 hours. 08/21/20 10:22 Blood Culture - Preliminary Blood Culture (Wb) - Port No growth in 48 hours. 08/22/20 14:25 Stool Occult Blood (SARANYA) - Final Stool 08/21/20 12:53 Urine Culture - Preliminary Urine, Catheterized Presumptive E. coli 08/21/20 13:40 SARS-CoV-2 Antigen (Rapid) - Final Mucosa - Nose Laboratory Tests Past 24 Hrs 08/21/20 08/22/20 08/22/20 14:25 05:24 05:24 WBC RBC Hgb Hct MCV MCH MCHC RDW Std Deviation RDW Coeff of Mica Plt Count MPV Immature Gran % (Auto) Neut % (Auto) Lymph % (Auto) [place] % (Auto) Eos % (Auto) Baso % (Auto) Absolute Neuts (auto) Absolute Lymphs (auto) Nucleated RBC % Diff Path Review Reviewed Sodium Potassium Chloride Carbon Dioxide Anion Gap BUN Creatinine Estim Creat Clear Calc Est GFR (MDRD) Af Amer Est GFR (MDRD) Non-Af BUN/Creatinine Ratio Glucose Calcium Iron TIBC Iron Saturation Ferritin Vitamin B12 338 RBC Folate Hemolysate RBC Folate Hematocrit TSH Blood Type B POSITIVE Antibody Screen NEGATIVE Crossmatch See Detail 08/22/20 08/22/20 08/22/20 05:24 14:10 14:10 WBC RBC Hgb 8.5 L Hct 25.3 L MCV MCH MCHC RDW Std Deviation RDW Coeff of Mica Plt Count MPV Immature Gran % (Auto) Neut % (Auto) Lymph % (Auto) [place] % (Auto) Eos % (Auto) Baso % (Auto) Absolute Neuts (auto) Absolute Lymphs (auto) Nucleated RBC % Diff Path Review Sodium Potassium Chloride Carbon Dioxide Anion Gap BUN Creatinine Estim Creat Clear Calc Est GFR (MDRD) Af Amer Est GFR (MDRD) Non-Af BUN/Creatinine Ratio Glucose Calcium Iron 32 L TIBC 93 L Iron Saturation 34.4 Ferritin 348 H Vitamin B12 RBC Folate Hemolysate Pending RBC Folate Pending Hematocrit Pending TSH 0.84 Blood Type Antibody Screen Crossmatch 08/23/20 08/23/20 04:15 04:15 WBC 5.8 RBC 2.80 L Hgb 8.4 L Hct 24.3 L MCV 86.8 D MCH 30.0 MCHC 34.6 D RDW Std Deviation 51.8 H RDW Coeff of Mica 16.7 H Plt Count 139 L MPV 9.2 Immature Gran % (Auto) 0.300 Neut % (Auto) 64.1 Lymph % (Auto) 27.5 [place] % (Auto) 5.9 Eos % (Auto) 1.7 Baso % (Auto) 0.5 Absolute Neuts (auto) 3.7 Absolute Lymphs (auto) 1.60 Nucleated RBC % [address] Review Sodium 148 H Potassium 3.1 L Chloride 121 H Carbon Dioxide 21.0 Anion Gap 6 BUN 67 H Creatinine 3.03 H Estim Creat Clear Calc 19.98 Est GFR (MDRD) Af Amer 20 L Est GFR (MDRD) Non-Af 16 L BUN/Creatinine Ratio 22.1 H Glucose 113 H Calcium 7.6 L Iron TIBC Iron Saturation Ferritin Vitamin B12 RBC Folate Hemolysate RBC Folate Hematocrit TSH Blood Type Antibody Screen Crossmatch Assessment/Plan All Active Problems (Last Reviewed 07/25/20 @ 12:46 by July Thomas) SOO (acute kidney injury) (Acute) Uremia (Acute) Hyperkalemia (Acute) Hypotension (Acute) Bladder cancer (Acute) Encounter for education (Resolved) 69-year-old female with advanced bladder cancer status post preoperative chemotherapy and cystectomy and ileal conduit formation at outside hospital presents to our hospital with worsening renal function her creatinine is now improved some. CAT scan does show hydronephrosis bilaterally but again this could be common with ileal conduit not sure if she really has obstruction her creatinine is improving with gentle hydration and medical management so for now would recommend continued observation I do not think I would not pursue placement of nephrostomy tubes given overall poor condition and risk for infection etc. certainly if the creatinine does not get better back to her baseline we could do a loopogram to see if there is any obstruction in the conduit but if there is obstruction then this would require an bilateral antegrade stent which is not available at [facility] radiology department. This could only be done at tertiary care hospital with interventional radiology to place antegrade stents but if her creatinine continues to improve I think we can avoid intervention especially given her poor prognosis long-term.
--- NOTE | 2020-08-23 07:33 | PCM.PN.INT ---
Subjective: Patient did okay overnight. Patient remained in the intensive care unit secondary to marginal blood pressures after transfusions. However, hemoglobin has remained stable. Patient became more agitated this morning and family is reporting she has a history of delirium in the hospital. Patient demanding to go home and does not believe that she needs to prove anything to get out of here. General: Alert, Disoriented, Non-Cooperative, - - Obese. No conversational dyspnea. HEENT: Atraumatic, PERRLA, EOMI, Normocephalic, - - No scleral icterus or injection noted Oral: Moist Mucosa, No Gingival or Mucosal Lesions/ Ulcerations Neck: Supple, No JVD, No Nodes, Trachea Midline Lungs: No rhonchi, No wheeze, No rales, Diminished, - - Fair effort Cardiovascular: Regular rate, Regular Rhythm, Normal S1, Normal S2, Murmur, No rub noted, No Gallop Abdomen: Bowel Sounds Present, Soft, Non Tender, Non-Distended, Obese Extremities: No clubbing, No cyanosis, Edema Skin: No rashes, No breakdown Musculoskeletal: No Tenderness to Palpation of Joints or Extremities Lymphatic: No Cervical, Supraclavicular, or Inguinal Adenopathy Neurological: Cranial nerves II-XII grossly intact, Neuro grossly intact, Motor Exam 5/5 strength throughout Psych/Mental Status: Anxious, Impulsive, Restless Vital Signs Temp Pulse Resp BP Pulse Ox 36.3 C L 63 20 H 108/60 99 08/23/20 00:00 08/23/20 06:00 08/23/20 06:00 08/23/20 06:00 08/23/20 06:00 Oxygen Delivery Method Room Air Weight: 73.255 kg Body Mass Index (BMI) 31.6 Intake and Output for Last 24 Hours 08/21/20 08/22/20 08/23/20 23:59 23:59 23:59 Intake Total 3671.5 / 3671.5 4557.5 / 4557.5 Output Total 600 / 750 1500 / 1600 550 / 550 Balance 3071.5 / 2921.5 3057.5 / 2957.5 -550 / -550 Labs (Last 48 Hours) 08/21/20 08/21/20 08/21/20 10:22 10:22 10:22 WBC 16.3 H Corrected WBC RBC 2.57 L Hgb 8.0 L Hct 24.9 L MCV 96.9 MCH 31.1 MCHC 32.1 RDW Std Deviation 61.1 H RDW Coeff of Mica 17.2 H Plt Count 212 MPV 9.6 Immature Gran % (Auto) 0.600 Neut % (Auto) 86.2 H Lymph % (Auto) 7.5 L [place] % (Auto) 5.1 Eos % (Auto) 0.2 Baso % (Auto) 0.4 Absolute Neuts (auto) 14.1 H Absolute Lymphs (auto) 1.23 Total Counted Neutrophils % (Manual) Band Neutrophils % Lymphocytes % (Manual) Monocytes % (Manual) Eosinophils % (Manual) Basophils % (Manual) Metamyelocytes % Myelocytes % Promyelocytes % Blast Cells % Plasma Cell % (Manual) Other Cells % Nucleated RBC % 0.1 Nucleated RBCs/100 WBC Differential Comment Diff Path Review Hypersegmented Neuts Atypical Lymphocytes Reactive Lymphocytes Smudge Cells Toxic Granulation Toxic Vacuolation Dohle Bodies Alireza Rods Platelet Estimate Plt Morphology Comment RBC Morphology Polychromasia Hypochromasia Poikilocytosis Basophilic Stippling Anisocytosis Microcytosis Macrocytosis Spherocytes Sickle Cells Target Cells Tear Drop Cells Ovalocytes Stomatocytes [place] Bodies Jeet Cells Bite Cells Crenated Cell Acanthocytes (Spur) Rouleaux Schistocytes PT 19.3 H INR 1.7 APTT 69.8 H Specimen Type Sample Site pH Bicarbonate Actual Total CO2 Base Excess O2 Saturation ABG pCO2 ABG pO2 [place] Test VBG pH VBG pO2 VBG HCO3 VBG Total CO2 VBG O2 Sat (Calc) VBG Base Excess POC Mix VBG pCO2 Pt Tmp O2 Delivery Device Sodium 139 Potassium 6.5 H* Chloride 120 H Carbon Dioxide 6.0 L* Anion Gap 13 BUN 111 H* Creatinine 6.06 H Estim Creat Clear Calc 9.91 Est GFR (MDRD) Af Amer 9 L Est GFR (MDRD) Non-Af 7 L BUN/Creatinine Ratio 18.3 Glucose 103 Serum Osmolality Lactic Acid Calcium 9.5 Phosphorus Magnesium Iron TIBC Iron Saturation Ferritin Total Bilirubin 0.40 AST 5 L ALT 8 L Alkaline Phosphatase 78 Troponin I < 0.015 Total Protein 7.8 Albumin 3.0 L Globulin 4.8 H Albumin/Globulin Ratio 0.6 L Vitamin B12 RBC Folate Hemolysate RBC Folate Hematocrit TSH Urine Color Urine Clarity Urine pH Ur Specific [place] Urine Protein Urine Glucose (UA) Urine Ketones Urine Occult Blood Urine Nitrite Urine Bilirubin Urine Urobilinogen Ur Leukocyte Esterase Urine RBC Urine WBC Ur Squamous Epith Cells Urine Bacteria Urine Mucus Urine Osmolality U Random Total Protein Ur Random Sodium Urine Creatinine Urine Chloride Urine Urea Nitrogen POC Glucose Blood Type Antibody Screen Crossmatch 08/21/20 08/21/20 08/21/20 10:22 12:53 14:00 WBC Corrected WBC RBC Hgb Hct MCV MCH MCHC RDW Std Deviation RDW Coeff of Mica Plt Count MPV Immature Gran % (Auto) Neut % (Auto) Lymph % (Auto) [place] % (Auto) Eos % (Auto) Baso % (Auto) Absolute Neuts (auto) Absolute Lymphs (auto) Total Counted Neutrophils % (Manual) Band Neutrophils % Lymphocytes % (Manual) Monocytes % (Manual) Eosinophils % (Manual) Basophils % (Manual) Metamyelocytes % Myelocytes % Promyelocytes % Blast Cells % Plasma Cell % (Manual) Other Cells % Nucleated RBC % Nucleated RBCs/100 WBC Differential Comment Diff Path Review Hypersegmented Neuts Atypical Lymphocytes Reactive Lymphocytes Smudge Cells Toxic Granulation Toxic Vacuolation Dohle Bodies Alireza Rods Platelet Estimate Plt Morphology Comment RBC Morphology Polychromasia Hypochromasia Poikilocytosis Basophilic Stippling Anisocytosis Microcytosis Macrocytosis Spherocytes Sickle Cells Target Cells Tear Drop Cells Ovalocytes Stomatocytes [place] Bodies Jeet Cells Bite Cells Crenated Cell Acanthocytes (Spur) Rouleaux Schistocytes PT INR APTT Specimen Type DOMONIQUE Sample Site pH Bicarbonate Actual Total CO2 Base Excess O2 Saturation ABG pCO2 ABG pO2 [place] Test VBG pH 7.02 L* VBG pO2 48 H VBG HCO3 6 L VBG Total CO2 7 L VBG O2 Sat (Calc) 64 VBG Base Excess -25 L POC Mix VBG pCO2 Pt Tmp 23.3 L O2 Delivery Device Sodium Potassium Chloride Carbon Dioxide Anion Gap BUN Creatinine Estim Creat Clear Calc Est GFR (MDRD) Af Amer Est GFR (MDRD) Non-Af BUN/Creatinine Ratio Glucose Serum Osmolality Lactic Acid 0.7 Calcium Phosphorus Magnesium Iron TIBC Iron Saturation Ferritin Total Bilirubin AST ALT Alkaline Phosphatase Troponin I Total Protein Albumin Globulin Albumin/Globulin Ratio Vitamin B12 RBC Folate Hemolysate RBC Folate Hematocrit TSH Urine Color Yellow Urine Clarity Cloudy Urine pH 6.0 Ur Specific [place] 1.010 Urine Protein 30 H Urine Glucose (UA) Normal Urine Ketones Negative Urine Occult Blood 150 H Urine Nitrite Positive H Urine Bilirubin Negative Urine Urobilinogen Normal Ur Leukocyte Esterase 500 H Urine RBC 5-10 SEEN Urine WBC 50-100 SEEN Ur Squamous Epith Cells 0-5 SEEN Urine Bacteria 3+ Urine Mucus 0 SEEN Urine Osmolality U Random Total Protein Ur Random Sodium Urine Creatinine Urine Chloride Urine Urea Nitrogen POC Glucose Blood Type Antibody Screen Crossmatch 08/21/20 08/21/20 08/21/20 14:25 14:25 14:25 WBC Corrected WBC RBC Hgb Hct MCV MCH MCHC RDW Std Deviation RDW Coeff of Mica Plt Count MPV Immature Gran % (Auto) Neut % (Auto) Lymph % (Auto) [place] % (Auto) Eos % (Auto) Baso % (Auto) Absolute Neuts (auto) Absolute Lymphs (auto) Total Counted Neutrophils % (Manual) Band Neutrophils % Lymphocytes % (Manual) Monocytes % (Manual) Eosinophils % (Manual) Basophils % (Manual) Metamyelocytes % Myelocytes % Promyelocytes % Blast Cells % Plasma Cell % (Manual) Other Cells % Nucleated RBC % Nucleated RBCs/100 WBC Differential Comment Diff Path Review Hypersegmented Neuts Atypical Lymphocytes Reactive Lymphocytes Smudge Cells Toxic Granulation Toxic Vacuolation Dohle Bodies Alireza Rods Platelet Estimate Plt Morphology Comment RBC Morphology Polychromasia Hypochromasia Poikilocytosis Basophilic Stippling Anisocytosis Microcytosis Macrocytosis Spherocytes Sickle Cells Target Cells Tear Drop Cells Ovalocytes Stomatocytes [place] Bodies [place] Cells Bite Cells Crenated Cell Acanthocytes (Spur) Rouleaux Schistocytes PT INR APTT Specimen Type Sample Site pH Bicarbonate Actual Total CO2 Base Excess O2 Saturation ABG pCO2 ABG pO2 [place] Test VBG pH VBG pO2 VBG HCO3 VBG Total CO2 VBG O2 Sat (Calc) VBG Base Excess POC Mix VBG pCO2 Pt Tmp O2 Delivery Device Sodium Cancelled Potassium Cancelled Chloride Cancelled Carbon Dioxide Cancelled Anion Gap Cancelled BUN Cancelled Creatinine Cancelled Estim Creat Clear Calc Cancelled Est GFR (MDRD) Af Amer Cancelled Est GFR (MDRD) Non-Af Cancelled BUN/Creatinine Ratio Cancelled Glucose Cancelled Serum Osmolality 333 H Lactic Acid Calcium Cancelled Phosphorus Magnesium Iron TIBC Iron Saturation Ferritin Total Bilirubin AST ALT Alkaline Phosphatase Troponin I Total Protein Albumin Globulin Albumin/Globulin Ratio Vitamin B12 338 RBC Folate Hemolysate RBC Folate Hematocrit TSH Urine Color Urine Clarity Urine pH Ur Specific [place] Urine Protein Urine Glucose (UA) Urine Ketones Urine Occult Blood Urine Nitrite Urine Bilirubin Urine Urobilinogen Ur Leukocyte Esterase Urine RBC Urine WBC Ur Squamous Epith Cells Urine Bacteria Urine Mucus Urine Osmolality U Random Total Protein Ur Random Sodium Urine Creatinine Urine Chloride Urine Urea Nitrogen POC Glucose Blood Type Antibody Screen Crossmatch 08/21/20 08/21/20 08/21/20 15:30 15:50 17:11 WBC Corrected WBC RBC Hgb Hct MCV MCH MCHC RDW Std Deviation RDW Coeff of Mica Plt Count MPV Immature Gran % (Auto) Neut % (Auto) Lymph % (Auto) [place] % (Auto) Eos % (Auto) Baso % (Auto) Absolute Neuts (auto) Absolute Lymphs (auto) Total Counted Neutrophils % (Manual) Band Neutrophils % Lymphocytes % (Manual) Monocytes % (Manual) Eosinophils % (Manual) Basophils % (Manual) Metamyelocytes % Myelocytes % Promyelocytes % Blast Cells % Plasma Cell % (Manual) Other Cells % Nucleated RBC % Nucleated RBCs/100 WBC Differential Comment Diff Path Review Hypersegmented Neuts Atypical Lymphocytes Reactive Lymphocytes Smudge Cells Toxic Granulation Toxic Vacuolation Dohle Bodies Alireza Rods Platelet Estimate Plt Morphology Comment RBC Morphology Polychromasia Hypochromasia Poikilocytosis Basophilic Stippling Anisocytosis Microcytosis Macrocytosis Spherocytes Sickle Cells Target Cells Tear Drop Cells Ovalocytes Stomatocytes [place] Bodies [place] Cells Bite Cells Crenated Cell Acanthocytes (Spur) Rouleaux Schistocytes PT INR APTT Specimen Type ART Sample Site L Radial pH 7.11 L* Bicarbonate Actual 6.7 L Total CO2 7 Base Excess -23 L O2 Saturation 97 ABG pCO2 21.4 L ABG pO2 118 H [place] Test Positive VBG pH VBG pO2 VBG HCO3 VBG Total CO2 VBG O2 Sat (Calc) VBG Base Excess POC Mix VBG pCO2 Pt Tmp O2 Delivery Device Room Air Sodium Potassium Chloride Carbon Dioxide Anion Gap BUN Creatinine Estim Creat Clear Calc Est GFR (MDRD) Af Amer Est GFR (MDRD) Non-Af BUN/Creatinine Ratio Glucose Serum Osmolality Lactic Acid Calcium Phosphorus Magnesium Iron TIBC Iron Saturation Ferritin Total Bilirubin AST ALT Alkaline Phosphatase Troponin I Total Protein Albumin Globulin Albumin/Globulin Ratio Vitamin B12 RBC Folate Hemolysate RBC Folate Hematocrit TSH Urine Color Urine Clarity Urine pH Ur Specific [place] Urine Protein Urine Glucose (UA) Urine Ketones Urine Occult Blood Urine Nitrite Urine Bilirubin Urine Urobilinogen Ur Leukocyte Esterase Urine RBC Urine WBC Ur Squamous Epith Cells Urine Bacteria Urine Mucus Urine Osmolality 344 U Random Total Protein 69.3 H Ur Random Sodium 71 Urine Creatinine 54.00 Urine Chloride 82 Urine Urea Nitrogen 388 POC Glucose 98 Blood Type Antibody Screen Crossmatch 08/21/20 08/21/20 08/22/20 18:15 Unknown 04:30 WBC Corrected WBC RBC Hgb Hct MCV MCH MCHC RDW Std Deviation RDW Coeff of Mica Plt Count MPV Immature Gran % (Auto) Neut % (Auto) Lymph % (Auto) [place] % (Auto) Eos % (Auto) Baso % (Auto) Absolute Neuts (auto) Absolute Lymphs (auto) Total Counted Neutrophils % (Manual) Band Neutrophils % Lymphocytes % (Manual) Monocytes % (Manual) Eosinophils % (Manual) Basophils % (Manual) Metamyelocytes % Myelocytes % Promyelocytes % Blast Cells % Plasma Cell % (Manual) Other Cells % Nucleated RBC % Nucleated RBCs/100 WBC Differential Comment Diff Path Review Hypersegmented Neuts Atypical Lymphocytes Reactive Lymphocytes Smudge Cells Toxic Granulation Toxic Vacuolation Dohle Bodies Alireza Rods Platelet Estimate Plt Morphology Comment RBC Morphology Polychromasia Hypochromasia Poikilocytosis Basophilic Stippling Anisocytosis Microcytosis Macrocytosis Spherocytes Sickle Cells Target Cells Tear Drop Cells Ovalocytes Stomatocytes [place] Bodies Jeet Cells Bite Cells Crenated Cell Acanthocytes (Spur) Rouleaux Schistocytes PT INR APTT Specimen Type Sample Site pH Bicarbonate Actual Total CO2 Base Excess O2 Saturation ABG pCO2 ABG pO2 [place] Test VBG pH VBG pO2 VBG HCO3 VBG Total CO2 VBG O2 Sat (Calc) VBG Base Excess POC Mix VBG pCO2 Pt Tmp O2 Delivery Device Sodium 145 Cancelled Potassium 5.1 Cancelled Chloride 126 H Cancelled Carbon Dioxide 9.0 L* Cancelled Anion Gap 10 Cancelled BUN 101 H* Cancelled Creatinine 5.35 H Cancelled Estim Creat Clear Calc 10.98 Cancelled Est GFR (MDRD) Af Amer 10 L Cancelled Est GFR (MDRD) Non-Af 8 L Cancelled BUN/Creatinine Ratio 18.9 Cancelled Glucose 104 Cancelled Serum Osmolality Lactic Acid Calcium 9.2 Cancelled Phosphorus Cancelled Magnesium 1.5 L Iron TIBC Iron Saturation Ferritin Total Bilirubin AST ALT Alkaline Phosphatase Troponin I Total Protein Albumin Globulin Albumin/Globulin Ratio Vitamin B12 RBC Folate Hemolysate RBC Folate Hematocrit TSH Cancelled Urine Color Urine Clarity Urine pH Ur Specific [place] Urine Protein Urine Glucose (UA) Urine Ketones Urine Occult Blood Urine Nitrite Urine Bilirubin Urine Urobilinogen Ur Leukocyte Esterase Urine RBC Urine WBC Ur Squamous Epith Cells Urine Bacteria Urine Mucus Urine Osmolality U Random Total Protein Ur Random Sodium Urine Creatinine Urine Chloride Urine Urea Nitrogen POC Glucose Blood Type Antibody Screen Crossmatch 08/22/20 08/22/20 08/22/20 04:30 05:24 05:24 WBC Cancelled 6.2 Corrected WBC Cancelled RBC Cancelled 1.84 L Hgb Cancelled 5.6 L* Hct Cancelled 17.2 L MCV Cancelled 93.5 MCH Cancelled 30.4 MCHC Cancelled 32.6 RDW Std Deviation Cancelled 57.3 H RDW Coeff of Mica Cancelled 17.2 H Plt Count Cancelled 145 L MPV Cancelled 9.5 Immature Gran % (Auto) Cancelled 0.500 Neut % (Auto) Cancelled 73.8 H Lymph % (Auto) Cancelled 18.4 L [place] % (Auto) Cancelled 5.9 Eos % (Auto) Cancelled 1.1 Baso % (Auto) Cancelled 0.3 Absolute Neuts (auto) Cancelled 4.5 Absolute Lymphs (auto) Cancelled 1.13 Total Counted Cancelled Neutrophils % (Manual) Cancelled Band Neutrophils % Cancelled Lymphocytes % (Manual) Cancelled Monocytes % (Manual) Cancelled Eosinophils % (Manual) Cancelled Basophils % (Manual) Cancelled Metamyelocytes % Cancelled Myelocytes % Cancelled Promyelocytes % Cancelled Blast Cells % Cancelled Plasma Cell % (Manual) Cancelled Other Cells % Cancelled Nucleated RBC % Cancelled 0 Nucleated RBCs/100 WBC Cancelled Differential Comment Cancelled SCANNED Diff Path Review Cancelled Reviewed Hypersegmented Neuts Cancelled Atypical Lymphocytes Cancelled Reactive Lymphocytes Cancelled Smudge Cells Cancelled Toxic Granulation Cancelled Toxic Vacuolation Cancelled Dohle Bodies Cancelled Alireza Rods Cancelled Platelet Estimate Cancelled Plt Morphology Comment Cancelled RBC Morphology Cancelled Polychromasia Cancelled Hypochromasia Cancelled Poikilocytosis Cancelled Basophilic Stippling Cancelled Anisocytosis Cancelled RARE Microcytosis Cancelled RARE Macrocytosis Cancelled Spherocytes Cancelled Sickle Cells Cancelled Target Cells Cancelled Tear Drop Cells Cancelled Ovalocytes Cancelled Stomatocytes Cancelled [place] Bodies Cancelled [place] Cells Cancelled Bite Cells Cancelled Crenated Cell Cancelled Acanthocytes (Spur) Cancelled Rouleaux Cancelled Schistocytes Cancelled PT INR APTT Specimen Type Sample Site pH Bicarbonate Actual Total CO2 Base Excess O2 Saturation ABG pCO2 ABG pO2 [place] Test VBG pH VBG pO2 VBG HCO3 VBG Total CO2 VBG O2 Sat (Calc) VBG Base Excess POC Mix VBG pCO2 Pt Tmp O2 Delivery Device Sodium 146 H Potassium 3.4 L Chloride 121 H Carbon Dioxide 17.0 L Anion Gap 8 BUN 91 H Creatinine 4.19 H Estim Creat Clear Calc 14.26 Est GFR (MDRD) Af Amer 14 L Est GFR (MDRD) Non-Af 11 L BUN/Creatinine Ratio 21.7 H Glucose 127 H Serum Osmolality Lactic Acid Calcium 8.0 L Phosphorus 3.0 Magnesium Iron TIBC Iron Saturation Ferritin Total Bilirubin AST ALT Alkaline Phosphatase Troponin I Total Protein Albumin Globulin Albumin/Globulin Ratio Vitamin B12 RBC Folate Hemolysate RBC Folate Hematocrit TSH 0.81 Urine Color Urine Clarity Urine pH Ur Specific [place] Urine Protein Urine Glucose (UA) Urine Ketones Urine Occult Blood Urine Nitrite Urine Bilirubin Urine Urobilinogen Ur Leukocyte Esterase Urine RBC Urine WBC Ur Squamous Epith Cells Urine Bacteria Urine Mucus Urine Osmolality U Random Total Protein Ur Random Sodium Urine Creatinine Urine Chloride Urine Urea Nitrogen POC Glucose Blood Type Antibody Screen Crossmatch 08/22/20 08/22/20 08/22/20 05:24 05:24 14:10 WBC Corrected WBC RBC Hgb 8.5 L Hct 25.3 L MCV MCH MCHC RDW Std Deviation RDW Coeff of Mica Plt Count MPV Immature Gran % (Auto) Neut % (Auto) Lymph % (Auto) [place] % (Auto) Eos % (Auto) Baso % (Auto) Absolute Neuts (auto) Absolute Lymphs (auto) Total Counted Neutrophils % (Manual) Band Neutrophils % Lymphocytes % (Manual) Monocytes % (Manual) Eosinophils % (Manual) Basophils % (Manual) Metamyelocytes % Myelocytes % Promyelocytes % Blast Cells % Plasma Cell % (Manual) Other Cells % Nucleated RBC % Nucleated RBCs/100 WBC Differential Comment Diff Path Review Hypersegmented Neuts Atypical Lymphocytes Reactive Lymphocytes Smudge Cells Toxic Granulation Toxic Vacuolation Dohle Bodies Alireza Rods Platelet Estimate Plt Morphology Comment RBC Morphology Polychromasia Hypochromasia Poikilocytosis Basophilic Stippling Anisocytosis Microcytosis Macrocytosis Spherocytes Sickle Cells Target Cells Tear Drop Cells Ovalocytes Stomatocytes [place] Bodies [place] Cells Bite Cells Crenated Cell Acanthocytes (Spur) Rouleaux Schistocytes PT INR APTT Specimen Type Sample Site pH Bicarbonate Actual Total CO2 Base Excess O2 Saturation ABG pCO2 ABG pO2 [place] Test VBG pH VBG pO2 VBG HCO3 VBG Total CO2 VBG O2 Sat (Calc) VBG Base Excess POC Mix VBG pCO2 Pt Tmp O2 Delivery Device Sodium Potassium Chloride Carbon Dioxide Anion Gap BUN Creatinine Estim Creat Clear Calc Est GFR (MDRD) Af Amer Est GFR (MDRD) Non-Af BUN/Creatinine Ratio Glucose Serum Osmolality Lactic Acid Calcium Phosphorus Magnesium Iron 32 L TIBC 93 L Iron Saturation 34.4 Ferritin 348 H Total Bilirubin AST ALT Alkaline Phosphatase Troponin I Total Protein Albumin Globulin Albumin/Globulin Ratio Vitamin B12 RBC Folate Hemolysate RBC Folate Hematocrit TSH 0.84 Urine Color Urine Clarity Urine pH Ur Specific [place] Urine Protein Urine Glucose (UA) Urine Ketones Urine Occult Blood Urine Nitrite Urine Bilirubin Urine Urobilinogen Ur Leukocyte Esterase Urine RBC Urine WBC Ur Squamous Epith Cells Urine Bacteria Urine Mucus Urine Osmolality U Random Total Protein Ur Random Sodium Urine Creatinine Urine Chloride Urine Urea Nitrogen POC Glucose Blood Type B POSITIVE Antibody Screen NEGATIVE Crossmatch See Detail 08/22/20 08/23/20 08/23/20 14:10 04:15 04:15 WBC 5.8 Corrected WBC RBC 2.80 L Hgb 8.4 L Hct 24.3 L MCV 86.8 D MCH 30.0 MCHC 34.6 D RDW Std Deviation 51.8 H RDW Coeff of Mica 16.7 H Plt Count 139 L MPV 9.2 Immature Gran % (Auto) 0.300 Neut % (Auto) 64.1 Lymph % (Auto) 27.5 [place] % (Auto) 5.9 Eos % (Auto) 1.7 Baso % (Auto) 0.5 Absolute Neuts (auto) 3.7 Absolute Lymphs (auto) 1.60 Total Counted Neutrophils % (Manual) Band Neutrophils % Lymphocytes % (Manual) Monocytes % (Manual) Eosinophils % (Manual) Basophils % (Manual) Metamyelocytes % Myelocytes % Promyelocytes % Blast Cells % Plasma Cell % (Manual) Other Cells % Nucleated RBC % 0 Nucleated RBCs/100 WBC Differential Comment Diff Path Review Hypersegmented Neuts Atypical Lymphocytes Reactive Lymphocytes Smudge Cells Toxic Granulation Toxic Vacuolation Dohle Bodies Alireaz Rods Platelet Estimate Plt Morphology Comment RBC Morphology Polychromasia Hypochromasia Poikilocytosis Basophilic Stippling Anisocytosis Microcytosis Macrocytosis Spherocytes Sickle Cells Target Cells Tear Drop Cells Ovalocytes Stomatocytes [place] Bodies [place] Cells Bite Cells Crenated Cell Acanthocytes (Spur) Rouleaux Schistocytes PT INR APTT Specimen Type Sample Site pH Bicarbonate Actual Total CO2 Base Excess O2 Saturation ABG pCO2 ABG pO2 [place] Test VBG pH VBG pO2 VBG HCO3 VBG Total CO2 VBG O2 Sat (Calc) VBG Base Excess POC Mix VBG pCO2 Pt Tmp O2 Delivery Device Sodium 148 H Potassium 3.1 L Chloride 121 H Carbon Dioxide 21.0 Anion Gap 6 BUN 67 H Creatinine 3.03 H Estim Creat Clear Calc 19.98 Est GFR (MDRD) Af Amer 20 L Est GFR (MDRD) Non-Af 16 L BUN/Creatinine Ratio 22.1 H Glucose 113 H Serum Osmolality Lactic Acid Calcium 7.6 L Phosphorus Magnesium Iron TIBC Iron Saturation Ferritin Total Bilirubin AST ALT Alkaline Phosphatase Troponin I Total Protein Albumin Globulin Albumin/Globulin Ratio Vitamin B12 RBC Folate Hemolysate Pending RBC Folate Pending Hematocrit Pending TSH Urine Color Urine Clarity Urine pH Ur Specific [place] Urine Protein Urine Glucose (UA) Urine Ketones Urine Occult Blood Urine Nitrite Urine Bilirubin Urine Urobilinogen Ur Leukocyte Esterase Urine RBC Urine WBC Ur Squamous Epith Cells Urine Bacteria Urine Mucus Urine Osmolality U Random Total Protein Ur Random Sodium Urine Creatinine Urine Chloride Urine Urea Nitrogen POC Glucose Blood Type Antibody Screen Crossmatch Microbiology 08/21/20 10:45 Blood Culture (Wb) - Left Hand Blood Culture - Preliminary No growth in 48 hours. 08/21/20 10:22 Blood Culture (Wb) - Port Blood Culture - Preliminary No growth in 48 hours. 08/22/20 14:25 Stool Stool Occult Blood (SARANYA) - Final 08/21/20 12:53 Urine, Catheterized Urine Culture - Preliminary Presumptive E. coli 08/21/20 13:40 Mucosa - Nose SARS-CoV-2 Antigen (Rapid) - Final Medical Necessity - Tobacco Use Smoking Status: Current every day smoker Assessment/Plan All Active Problems (Last Reviewed 08/23/20 @ 07:[address] Stuart Marino MD) SOO (acute kidney injury) (Acute) Uremia (Acute) Hyperkalemia (Acute) Hypotension (Acute) Bladder cancer (Acute) Encounter for education (Resolved) RECOMMENDATIONS: 1. Haldol as needed for agitation 2. Monitor blood counts on a daily basis 3. Potassium repletion 4. Likely okay to reinitiate Eliquis 5. Consider reinitiation of antihypertensives per nephrology recommendations 6. Okay to leave the intensive care unit 7. Hemodynamically stable on room air. Will sign off from a critical care perspective IMPRESSIONS: 1. Metabolic encephalopathy secondary to acute kidney injury Patient with significant uremia on laboratory work-up. Patient also has hyperkalemia that is being addressed. Patient appears to have responded well to conservative therapy. Patient is more agitated today. Will order as needed Haldol. Avoid Ativan. 2. Hyperkalemia with nonanion gap metabolic acidosis secondary to acute kidney injury Resolved. Patient has no peaked T waves at this time. Patient has been treated. Defer to urology on assessment of postobstructive component. Potassium supplementation as ordered 3. History of bladder cancer with neoadjuvant chemotherapy, cystectomy and current hydronephrosis Consider urology evaluation along with a renal ultrasound. Patient does appear to have some urostomy output that is infected. Patient is on antibiotics at this time. 4. Recent PE/chronic systolic CHF Patient on baseline 10 a inhibitor. Patient did have decreased hemoglobin this morning. Clinical suspicion is patient was volume depleted on presentation and this was the true hemoglobin. Guaiac was negative. Okay to reinitiate Eliquis from my perspective 5. Hypovolemic shock Resolved. This may be a result or an etiology of patient's acute kidney injury. Clinical suspicion for post renal and prerenal etiology. Patient should receive fluid boluses as necessary. Oxygenation appears to be doing well at this time. Patient with significant decrease in hemoglobin. Clinical suspicion that this may have led to the presentation. Patient with no obvious bleeding at this time, so Eliquis can likely be reinitiated. Stool guaiac was negative 6. Encephalopathy/multiple allergies/advanced age/recent bladder cancer Complicates care, management, recovery and prognosis. Patient appears to be tolerating antibiotics well despite reported allergy. Continue to monitor clinically. Inpatient E&M: 31810 Subs Hosp L2
--- NOTE | 2020-08-23 08:01 | NURSING ---
report called to [facility] for transfer to room [facility] 112
[2020-08-23] MEDS: Pantoprazole Sodium 40 MG Tablet PO (08:36)
[2020-08-23 08:56] LABS: Magnesium 1.5 mg/dL (1.6-2.6)
--- NOTE | 2020-08-23 11:40 | PCM.PN.REN ---
Patient Problems: Active and Suspected Problems (Last Reviewed 08/23/20 @ 07:[address] Stuart Marino MD) SOO (acute kidney injury) (Acute) Uremia (Acute) Hyperkalemia (Acute) Hypotension (Acute) Bladder cancer (Acute) Subjective: no sob/cp - Physical Exam Vitals/I&O's: Vital Signs Temp Pulse Resp BP Pulse Ox 97.8 F 74 18 110/84 H 98 08/23/20 08:25 08/23/20 11:00 08/23/20 08:25 08/23/20 08:25 08/23/20 08:47 Oxygen Delivery Method Room Air Weight: 73.255 kg Body Mass Index (BMI) 31.6 Intake and Output for Last 24 Hours 08/21/20 08/22/20 08/23/20 23:59 23:59 23:59 Intake Total 3671.5 / 3671.5 4557.5 / 4557.5 120 / 120 Output Total 600 / 750 1500 / 1600 550 / 550 Balance 3071.5 / 2921.5 3057.5 / 2957.5 -430 / -430 General: Alert HEENT: Atraumatic, Normocephalic Neck: Supple, Trachea Midline Lungs: Clear to auscultation Cardiovascular: Normal S1, Normal S2 Abdomen: Bowel Sounds Present, Soft, - - Urostomy Microbiology Past 72 Hours 08/21/20 12:53 Urine, Catheterized Urine Culture - Final Presumptive E. coli 08/21/20 10:45 Blood Culture (Wb) - Left Hand Blood Culture - Preliminary No growth in 48 hours. 08/21/20 10:22 Blood Culture (Wb) - Port Blood Culture - Preliminary No growth in 48 hours. 08/22/20 14:25 Stool Stool Occult Blood (SARANYA) - Final 08/21/20 13:40 Mucosa - Nose SARS-CoV-2 Antigen (Rapid) - Final Laboratory Results 08/21/20 14:25: Vitamin B12 338 08/22/20 05:24: Diff Path Review Reviewed 08/22/20 05:24: Crossmatch See Detail 08/22/20 05:24: Iron 32 L, TIBC 93 L, Iron Saturation 34.4, Ferritin 348 H, TSH 0.84 08/22/20 14:10: Hgb 8.5 L, Hct 25.3 L 08/22/20 14:10: RBC Folate Hemolysate Pending, RBC Folate Pending, Hematocrit Pending 08/23/20 04:15: WBC 5.8, RBC 2.80 L, Hgb 8.4 L, Hct 24.3 L, MCV 86.8 D, MCH 30.0, MCHC 34.6 D, RDW Std Deviation 51.8 H, RDW Coeff of Mica 16.7 H, Plt Count 139 L, MPV 9.2, Immature Gran % (Auto) 0.300, Neut % (Auto) 64.1, Lymph % (Auto) 27.5, [place] % (Auto) 5.9, Eos % (Auto) 1.7, Baso % (Auto) 0.5, Absolute Neuts (auto) 3.7, Absolute Lymphs (auto) 1.60, Nucleated RBC % 0 08/23/20 04:15: Sodium 148 H, Potassium 3.1 L, Chloride 121 H, Carbon Dioxide 21.0, Anion Gap 6, BUN 67 H, Creatinine 3.03 H, Estim Creat Clear Calc 19.98, Est GFR (MDRD) Af Amer 20 L, Est GFR (MDRD) Non-Af 16 L, BUN/Creatinine Ratio 22.1 H, Glucose 113 H, Calcium 7.6 L 08/23/20 04:15: Magnesium 1.5 L Current Medications Acetaminophen (Acetaminophen 325 Mg Tablet) 650 mg PO Q6H PRN PRN PRN Reason: Pain Score 1-10/Temp > 100.7 F Albuterol Sulfate (Albuterol 2.5 Mg/3 Ml Vial.Neb.) 2.5 mg INHALATION Q2H PRN PRN PRN Reason: SOB/Wheezing Calamine/Phenol (Menthol/Lanolin/Calamine/Znox 113 Gm Tube) 1 applic TOPICAL BID AMBROSE; Protocol Last Admin: 08/23/20 08:36 Dose: 1 applicatio Documented by: Haloperidol Lactate (Haloperidol Lactate 5 Mg/Ml Vial) 3 mg IV Q4H PRN PRN PRN Reason: AGITATION Sodium Chloride () 250 mls @ 15 mls/hr IV .[id number] PRN PRN Reason: Saline Flush Sodium Chloride () 250 mls @ 15 mls/hr IV .[id number] PRN PRN Reason: Additional IVPB Infusion Potassium Chloride 40 meq/ (Sodium Chloride) 120 mls @ 100 mls/hr IV BOLUS X1 ONE Stop: 08/23/20 19:11 Magnesium Sulfate 2 gm/ Sodium (Chloride) 104 mls @ 52 mls/hr IV X1 ONE Stop: 08/23/20 11:59 Last Admin: 08/23/20 10:44 Dose: 52 mls/hr Documented by: Nitroglycerin (Nitroglycerin (Inpatient Use) 0.4 Mg Tab.Subl) 0.4 mg SUBLINGUAL Q5M PRN PRN Reason: CARDIAC/CHEST PAIN Nutritional Formula (Lactose Free) (Ensure Clear 120 Ml Liquid) 120 ml PO 4X/DAY [facility] Last Admin: 08/23/20 08:28 Dose: Not Given Documented by: Nystatin (Nystatin Powder 15gm Bottle) 1 applic TOPICAL BID [facility]; Protocol Last Admin: 08/23/20 08:35 Dose: 1 applicatio Documented by: Oxycodone HCl (Oxycodone 5 Mg Tablet) 5 mg PO Q4H PRN PRN PRN Reason: Pain Score 4-5 Last Admin: 08/21/20 15:52 Dose: 5 mg Documented by: Pantoprazole Sodium (Pantoprazole Sodium 40 Mg Tablet) 40 mg PO DAILY [facility] Last Admin: 08/23/20 08:36 Dose: 40 mg Documented by: Prochlorperazine Edisylate (Prochlorperazine 10 Mg/2 Ml Vial) 5 mg IV Q4H PRN PRN PRN Reason: Breakthrough Nausea/Vomiting Psyllium Hydrophilic Mucilloid (Psyllium 1 Packet) 1 packet PO DAILY [facility] Last Admin: 08/23/20 08:36 Dose: Not Given Documented by: Senna/Docusate Sodium (Senna/Docusate Sodium 1 Tablet) 2 tablet PO BID PRN PRN Reason: Constipation Sodium Chloride (0.9% Saline Lock 10 Ml Syringe) 10 - 40 ml IV UD PRN PRN Reason: SALINE FLUSH Last Admin: 08/23/20 10:44 Dose: 10 ml Documented by: Trazodone HCl (Trazodone 50 Mg Tablet) 50 mg PO QHS PRN PRN PRN Reason: Insomnia Medical Necessity - Tobacco Use Smoking Status: Current every day smoker Assessment/Plan All Active Problems (Last Reviewed 08/23/20 @ 07:[address] Stuart Marino MD) SOO (acute kidney injury) (Acute) Uremia (Acute) Hyperkalemia (Acute) Hypotension (Acute) Bladder cancer (Acute) Encounter for education (Resolved) SOO likely prerenal/ATN with severe hypotension and fluid depletion also possible some degree of obstructive uropathy hyperkalemia resolved Metabolic acidosis Bilateral hydronephrosis with ileal conduit and urostomy CKD Baseline serum creatinine 1.5-1.6 but in July was 3 Leukocytosis Gentle D5 water for hypernatremia urology evaluation For bilateral hydronephrosis appreciated Scr 3.03 better Careful replace magnesium Start p.o. bicarb keep MAP more than 65 Avoid nephrotoxins
--- NOTE | 2020-08-23 11:58 | PCM.PN.HOSP ---
Patient Problems: Active and Suspected Problems (Last Reviewed 08/23/20 @ 07:[address] Stuart Marino MD) SOO (acute kidney injury) (Acute) Uremia (Acute) Hyperkalemia (Acute) Hypotension (Acute) Bladder cancer (Acute) Reason for Visit: SOO Subjective: Tired. No shortness of breath. Vitals/I&O's: Vital Signs Temp Pulse Resp BP Pulse Ox 36.6 C 74 18 110/84 H 98 08/23/20 08:25 08/23/20 11:00 08/23/20 08:25 08/23/20 08:25 08/23/20 08:47 Oxygen Delivery Method Room Air Weight: 73.255 kg Body Mass Index (BMI) 31.6 Intake and Output for Last 24 Hours 08/21/20 08/22/20 08/23/20 23:59 23:59 23:59 Intake Total 3671.5 / 3671.5 4557.5 / 4557.5 120 / 120 Output Total 600 / 750 1500 / 1600 550 / 550 Balance 3071.5 / 2921.5 3057.5 / 2957.5 -430 / -430 General: Alert, No apparent distress HEENT: Atraumatic, Normocephalic Oral: Moist Mucosa, No Gingival or Mucosal Lesions/ Ulcerations Neck: No Nodes, Thyroid Normal Size and Texture Lungs: Clear to auscultation, Normal air movement, No rhonchi, No wheeze Cardiovascular: Regular rate, Regular Rhythm, Normal S1, Normal S2 Abdomen: Bowel Sounds Present, Soft, Non Tender, Non-Distended, No Hepato-splenomegaly Extremities: No edema, No Calf Tenderness Psych/Mental Status: Normal Affect, Appropriate Microbiology Past 72 Hours 08/21/20 12:53 Urine, Catheterized Urine Culture - Final Presumptive E. coli 08/21/20 10:45 Blood Culture (Wb) - Left Hand Blood Culture - Preliminary No growth in 48 hours. 08/21/20 10:22 Blood Culture (Wb) - Port Blood Culture - Preliminary No growth in 48 hours. 08/22/20 14:25 Stool Stool Occult Blood (SARANYA) - Final 08/21/20 13:40 Mucosa - Nose SARS-CoV-2 Antigen (Rapid) - Final Laboratory Results 08/21/20 14:25: Vitamin B12 338 08/22/20 05:24: Diff Path Review Reviewed 08/22/20 05:24: Crossmatch See Detail 08/22/20 05:24: Iron 32 L, TIBC 93 L, Iron Saturation 34.4, Ferritin 348 H, TSH 0.84 08/22/20 14:10: Hgb 8.5 L, Hct 25.3 L 08/22/20 14:10: RBC Folate Hemolysate Pending, RBC Folate Pending, Hematocrit Pending 08/23/20 04:15: WBC 5.8, RBC 2.80 L, Hgb 8.4 L, Hct 24.3 L, MCV 86.8 D, MCH 30.0, MCHC 34.6 D, RDW Std Deviation 51.8 H, RDW Coeff of Mica 16.7 H, Plt Count 139 L, MPV 9.2, Immature Gran % (Auto) 0.300, Neut % (Auto) 64.1, Lymph % (Auto) 27.5, [place] % (Auto) 5.9, Eos % (Auto) 1.7, Baso % (Auto) 0.5, Absolute Neuts (auto) 3.7, Absolute Lymphs (auto) 1.60, Nucleated RBC % 0 08/23/20 04:15: Sodium 148 H, Potassium 3.1 L, Chloride 121 H, Carbon Dioxide 21.0, Anion Gap 6, BUN 67 H, Creatinine 3.03 H, Estim Creat Clear Calc 19.98, Est GFR (MDRD) Af Amer 20 L, Est GFR (MDRD) Non-Af 16 L, BUN/Creatinine Ratio 22.1 H, Glucose 113 H, Calcium 7.6 L 08/23/20 04:15: Magnesium 1.5 L Current Medications Acetaminophen (Acetaminophen 325 Mg Tablet) 650 mg PO Q6H PRN PRN PRN Reason: Pain Score 1-10/Temp > 100.7 F Albuterol Sulfate (Albuterol 2.5 Mg/3 Ml Vial.Neb.) 2.5 mg INHALATION Q2H PRN PRN PRN Reason: SOB/Wheezing Calamine/Phenol (Menthol/Lanolin/Calamine/Znox 113 Gm Tube) 1 applic TOPICAL BID AMBROSE; Protocol Last Admin: 08/23/20 08:36 Dose: 1 applicatio Documented by: Haloperidol Lactate (Haloperidol Lactate 5 Mg/Ml Vial) 3 mg IV Q4H PRN PRN PRN Reason: AGITATION Sodium Chloride () 250 mls @ 15 mls/hr IV .[id number] PRN PRN Reason: Saline Flush Sodium Chloride () 250 mls @ 15 mls/hr IV .[id number] PRN PRN Reason: Additional IVPB Infusion Potassium Chloride 40 meq/ (Sodium Chloride) 120 mls @ 100 mls/hr IV BOLUS X1 ONE Stop: 08/23/20 19:11 Magnesium Sulfate 2 gm/ Sodium (Chloride) 104 mls @ 52 mls/hr IV X1 ONE Stop: 08/23/20 11:59 Last Admin: 08/23/20 10:44 Dose: 52 mls/hr Documented by: Dextrose () 1,000 mls @ 100 mls/hr IV .Q10H [facility] Stop: 08/24/20 07:46 Nitroglycerin (Nitroglycerin (Inpatient Use) 0.4 Mg Tab.Subl) 0.4 mg SUBLINGUAL Q5M PRN PRN Reason: CARDIAC/CHEST PAIN Nutritional Formula (Lactose Free) (Ensure Clear 120 Ml Liquid) 120 ml PO 4X/DAY [facility] Last Admin: 08/23/20 08:28 Dose: Not Given Documented by: Nystatin (Nystatin Powder 15gm Bottle) 1 applic TOPICAL BID [facility]; Protocol Last Admin: 08/23/20 08:35 Dose: 1 applicatio Documented by: Oxycodone HCl (Oxycodone 5 Mg Tablet) 5 mg PO Q4H PRN PRN PRN Reason: Pain Score 4-5 Last Admin: 08/21/20 15:52 Dose: 5 mg Documented by: Pantoprazole Sodium (Pantoprazole Sodium 40 Mg Tablet) 40 mg PO DAILY [facility] Last Admin: 08/23/20 08:36 Dose: 40 mg Documented by: Prochlorperazine Edisylate (Prochlorperazine 10 Mg/2 Ml Vial) 5 mg IV Q4H PRN PRN PRN Reason: Breakthrough Nausea/Vomiting Psyllium Hydrophilic Mucilloid (Psyllium 1 Packet) 1 packet PO DAILY [facility] Last Admin: 08/23/20 08:36 Dose: Not Given Documented by: Senna/Docusate Sodium (Senna/Docusate Sodium 1 Tablet) 2 tablet PO BID PRN PRN Reason: Constipation Sodium Bicarbonate (Sodium Bicarbonate 650 Mg Tablet) 650 mg PO 4X/DAY AMBROSE Sodium Chloride (0.9% Saline Lock 10 Ml Syringe) 10 - 40 ml IV UD PRN PRN Reason: SALINE FLUSH Last Admin: 08/23/20 10:44 Dose: 10 ml Documented by: Thiamine HCl (Thiamine Hydrochloride 100 Mg Tablet) 100 mg PO DAILYCM AMBR[facility] Trazodone HCl (Trazodone 50 Mg Tablet) 50 mg PO QHS PRN PRN PRN Reason: Insomnia STROKE Vital Signs/Narrative: Vital Signs Temp Pulse Resp BP Pulse Ox 08/23/20 11:00 74 08/23/20 08:47 98 08/23/20 08:28 93 08/23/20 08:25 36.6 C 75 18 110/84 H 98 Medical Necessity - Tobacco Use Smoking Status: Current every day smoker Assessment/Plan All Active Problems (Last Reviewed 08/23/20 @ 07:[address] Stuart Marino MD) SOO (acute kidney injury) (Acute) Uremia (Acute) Hyperkalemia (Acute) Hypotension (Acute) Bladder cancer (Acute) Encounter for education (Resolved) 1. SOO: FEUrea 21.79, cw prerenal azotemia Improved baseline creatinine 3.08 bilateral hydronephrosis nephrology following HCO3- tabs consult urology. 2. acute blood loss anemia stable Hg down to 5.6, received 2 units PRBCs, now up to 8.5. Monitor check anemia labs and hemoccult 3. hyperkalemia resolved, now hypkalemic spironolactone and lisinopril held 4. Bladder CA follow up with oncology as outpt. seen by , no need for nephrostomy tubes at this time. 5. h/o VTE: anticoagulation held given anemia 6. VTE prophylaxis: SCDs. Inpatient E&M: 35729 Subs Hosp L2
[2020-08-23] MEDS: Sodium Bicarbonate 650 MG Tablet PO (14:40)
--- NOTE | 2020-08-23 17:44 | DS.PCM_ITS ---
Discharge Date and Diagnosis - Problem List Patient Problems: Active and Suspected Problems (Last Reviewed 08/23/20 @ 07:[address] Stuart Marino MD) SOO (acute kidney injury) (Acute) Uremia (Acute) Hyperkalemia (Acute) Hypotension (Acute) Bladder cancer (Acute) Date of Admission: 08/21/20 Date of Discharge: 08/23/20 - Primary Discharge Diagnosis Acute Problems: Active Problems (Last Reviewed 08/23/20 @ 07:[address] Stuart Marino MD) SOO (acute kidney injury) (Acute) Uremia (Acute) Hyperkalemia (Acute) Hypotension (Acute) Bladder cancer (Acute) - Secondary Discharge Diagnosis Chronic Problems: Chronic Problems (Last Reviewed 08/23/20 @ 07:[address] 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 The thrombus is nonocclusive. 03/20/2020 Hydronephrosis of left kidney (Chronic) Abdominal wall mass (Chronic 03/20/20) Urothelial carcinoma of bladder (Chronic) Diarrhea (Chronic) Nausea & vomiting (Chronic) Hospital Course and Treatment Imaging Results: Marky: nephrology Vinicius: CCM. Summary of Care Provided: The patient is a 69 year old F presents with hypotension and change in mental status. Patient did improve overall. Patient earlier today was sleeping and interaction was very minimal even though she would wake up briefly. Later patient was asking what was being done for her and I want to leave. Explained that she is overall improving but not ready for discharge at this point in time. She explained that she has care at home and that she can do what ever at home. Explained that she could like to be ready for discharge in 24 to 48 hours. She still did not want to stay. I assessed her orientation and with the nursing present and she is alert and oriented x3 and knows the current president. I explained the risks of her going home including worsening condition even . She expressed understanding and insist on leaving AGAINST MEDICAL ADVICE. I also told her that the possible that her insurance may not pay for part or all of this hospitalization if she leaves AGAINST MEDICAL ADVICE. She says she is not worried about that. [] 1. SOO: * FEUrea 21.79, cw prerenal azotemia * Improved * baseline creatinine 3.08 * bilateral hydronephrosis * nephrology following * HCO3- tabs * consult urology. 2. acute blood loss anemia * stable * Hg down to 5.6, received 2 units PRBCs, now up to 8.5. * Monitor * check anemia labs and hemoccult 3. hyperkalemia * resolved, now hypkalemic * spironolactone and lisinopril held 4. Bladder CA * follow up with oncology as outpt. * seen by , no need for nephrostomy tubes at this time. Patient Problems: Active and Suspected Problems (Last Reviewed 08/23/20 @ 07:[address] Stuart Marino MD) SOO (acute kidney injury) (Acute) Uremia (Acute) Hyperkalemia (Acute) Hypotension (Acute) Bladder cancer (Acute) - Physical Exam Vitals/I&O's: Vital Signs Temp Pulse Resp BP Pulse Ox 36.6 C 79 18 131/68 H 98 08/23/20 14:40 08/23/20 15:00 08/23/20 14:40 08/23/20 14:40 08/23/20 14:40 Oxygen Delivery Method Room Air Weight: 73.255 kg Body Mass Index (BMI) 31.6 Intake and Output for Last 24 Hours 08/21/20 08/22/20 08/23/20 23:59 23:59 23:59 Intake Total 3671.5 / 3671.5 4557.5 / 4557.5 899 / 899 Output Total 600 / 750 1500 / 1600 850 / 850 Balance 3071.5 / 2921.5 3057.5 / 2957.5 49 / 49 General: Alert, No apparent distress HEENT: Atraumatic, Normocephalic Oral: Moist Mucosa, No Gingival or Mucosal Lesions/ Ulcerations Microbiology Past 72 Hours 08/21/20 12:53 Urine, Catheterized Urine Culture - Final Presumptive E. coli 08/21/20 10:45 Blood Culture (Wb) - Left Hand Blood Culture - Preliminary No growth in 48 hours. 08/21/20 10:22 Blood Culture (Wb) - Port Blood Culture - Preliminary No growth in 48 hours. 08/22/20 14:25 Stool Stool Occult Blood (SARANYA) - Final 08/21/20 13:40 Mucosa - Nose SARS-CoV-2 Antigen (Rapid) - Final Laboratory Results 08/23/20 04:15: WBC 5.8, RBC 2.80 L, Hgb 8.4 L, Hct 24.3 L, MCV 86.8 D, MCH 30.0, MCHC 34.6 D, RDW Std Deviation 51.8 H, RDW Coeff of Mica 16.7 H, Plt Count 139 L, MPV 9.2, Immature Gran % (Auto) 0.300, Neut % (Auto) 64.1, Lymph % ( Auto) 27.5, [place] % (Auto) 5.9, Eos % (Auto) 1.7, Baso % (Auto) 0.5, Absolute Neuts (auto) 3.7, Absolute Lymphs (auto) 1.60, Nucleated RBC % 0 08/23/20 04:15: Sodium 148 H, Potassium 3.1 L, Chloride 121 H, Carbon Dioxide 21.0, Anion Gap 6, BUN 67 H, Creatinine 3.03 H, Estim Creat Clear Calc 19.98, Est GFR (MDRD) Af Amer 20 L, Est GFR (MDRD) Non-Af 16 L, BUN/Creatinine Ratio 22.1 H, Glucose 113 H, Calcium 7.6 L 08/23/20 04:15: Magnesium 1.5 L Home Medications: Medications to take at Discharge traMADol [Ultram (G)] 50 mg PO BID PRN PRN 11/23/19 lisinopril 5 mg tablet 2.5 mg PO DAILY tab 04/28/20 melatonin 3 mg capsule 3 mg PO HS 04/28/20 pantoprazole 40 mg tablet,delayed release 40 mg PO DAILY tab 04/28/20 spironolactone 25 mg tablet 25 mg PO DAILY tab 04/28/20 ondansetron HCl 4 mg tablet 4 mg PO BID PRN 05/23/20 Apixaban [Eliquis] 5 mg PO BID #60 tab 05/26/20 traZODone [Desyrel] 50 mg PO QHS 05/31/20 Primary Care Physician: José Miguel Guajardo DO [Primary Care Provider] - Minutes spent on discharge:: 36 Patient Condition:: Stable Medical Necessity - Tobacco Use Smoking Status: Current every day smoker Meaningful Use Info Meaningful Use Diagnoses (Choose all that apply): None applicable Inpatient E&M: 85881 Disch Hosp
[2020-08-24 16:10] LABS: Folate, RBC (Hct) Test 25.5 % (34.0-46.6)
[2020-08-25 20:25] LABS: Folates, RBC Test 631 ng/mL (>498)
--- NOTE | 2020-09-08 11:44 | CASEMGMT ---
CUAUHTEMOC received a call from Jessie Torres with [facility]. She was wondering about patient's discharge. CUAUHTEMOC looked patient up and called Jessie. CUAUHTEMOC let Jessie know that patient left AMA. She asked if she was walking and CUAUHTEMOC told her what therapy's note said from day before her discharge. She thanked CUAUHTEMOC for the update. Mona MULLEN
== END 2020-08-23 17:35 | disposition left against medical advice (07) | DRG 682 ==
LOC: ED 13:39 → ICU 14:18 → PCU 08-23 08:27
PROVIDERS: Internal Medicine Critical Care Medicine; Admitting Provider Internal Medicine; Emergency Provider Emergency Medicine; PCP Family Medicine
DX: N17.0 Acute kidney failure with tubular necrosis (principal); G93.41 Metabolic encephalopathy; R57.1 Hypovolemic shock; I42.8 Other cardiomyopathies; I50.22 Chronic systolic (congestive) heart failure; I45.2 Bifascicular block; D62 Acute posthemorrhagic anemia; E87.2 Acidosis; C67.9 Malignant neoplasm of bladder, unspecified; E87.5 Hyperkalemia; J44.9 Chronic obstructive pulmonary disease, unspecified; F17.200 Nicotine dependence, unspecified, uncomplicated; E86.0 Dehydration; E87.6 Hypokalemia; Z93.2 Ileostomy status; N18.9 Chronic kidney disease, unspecified; B37.9 Candidiasis, unspecified; Z86.711 Personal history of pulmonary embolism; Z86.718 Personal history of other venous thrombosis and embolism; N13.30 Unspecified hydronephrosis
CPT/HCPCS: 36591; 36600; 71045; 74176; 76770; 80048; 80053; 81001; 82274; 82436; 82570; 82607; 82728; 82747; 82803; 82962; 83540; 83550; 83605; 83735; 83930; 83935; 84100; 84156; 84300; 84443; 84484; 84540; 85014; 85018; 85025; 85610; 85730; 86850; 86900; 86901; 86920; 86922; 87040; 87086; 87088; 87186; 87426; 93005; 97110; 97162; 97166; 97530; 97802; 99285; J7030; J7050; P9016; A4216; J0610

== ENCOUNTER → 2020-10-26 15:38 | Outpatient (CLI) | payer MEDICARE, MEDICAID, SELFPAY ==
[2020-01-07 09:58] VITALS: BMI 40.0
[2020-08-21 15:16] VITALS: BMI 31.6
== END ==
LOC: PAVLAB 15:39 → LAB.FUTURE 15:40
PROVIDERS: PCP Family Medicine; Visit Provider Family Medicine
DX: E78.1 Pure hyperglyceridemia (principal); E87.6 Hypokalemia; R11.2 Nausea with vomiting, unspecified

== ENCOUNTER → 2021-01-22 12:31 | Outpatient (CLI) | payer MEDICARE, MEDICAID, SELFPAY ==
[2020-01-07 09:58] VITALS: BMI 40.0
[2020-08-21 15:16] VITALS: BMI 31.6
[2020-12-29 10:28] VITALS: BMI 34.6
--- NOTE | 2021-01-22 12:33 | ECHOD_ITS ---
Reason For Study: CARDIOMYOPATHY Procedure This was a 2D Doppler, Color Flow transthoracic echocardiogram. The study was technically difficult. PT unable to lie in left lateral decubitis position due to left should injury. Exam performed with PT supine. Exam performed in department. Left Ventricle Normal LV size. The estimated ejection fraction is 45 %. Stage 1 diastolic dysfunction. There is mild global hypokinesis of the left ventricle. Right Ventricle Normal RV size. Atria Normal left atrium. Mitral Valve Normal mitral valve. Tricuspid Valve Normal tricuspid valve. Aortic Valve The aortic valve is not well visualized. Pulmonic Valve Normal pulmonic valve. Great Vessels Normal aortic root. The pulmonary artery is normal size. Normal inferior vena cava. Pericardium/Pleural No pericardial effusion. MMode/2D Measurements & Calculations LVIDd: 4.3 cm IVSd: 0.78 cm Ao root diam: 3.3 cm LVIDs: 3.2 cm LVPWd: 1.2 cm RVDd: 4.0 cm FS: 26.3 % LAV(MOD-bp): 33.6 ml LVAd ap4: 33.4 cm2 LVAd ap2: 26.0 cm2 LAV(MOD-bp) Indexed: 19.5 ml/m2 LVLd ap4: 8.4 cm LVLd ap2: 8.0 cm LAV(MOD-sp2): 32.4 ml EDV(MOD-sp4): 109.8 ml EDV(MOD-sp2): 69.2 ml LAV(MOD-sp4): 28.5 ml EDV(sp4-el): 112.0 ml EDV(sp2-el): 71.6 ml LVAs ap4: 19.3 cm2 LVAs ap2: 15.3 cm2 LVLs ap4: 7.4 cm LVLs ap2: 6.5 cm ESV(MOD-sp4): 43.5 ml ESV(MOD-sp2): 30.6 ml ESV(sp4-el): 42.5 ml ESV(sp2-el): 30.6 ml EF(MOD-sp4): 60.4 % EF(MOD-sp2): 55.8 % EF(sp4-el): 62.0 % SV(MOD-sp4): 66.3 ml SV(MOD-sp2): 38.6 ml SV(sp4-el): 69.5 ml LA A4 area: 11.8 cm2 RA A4 area: 11.8 cm2 Time Measurements MV dec time: 0.32 sec Doppler Measurements & Calculations MV E max melecio: 65.4 cm/sec Lat Peak E' Melecio: 11.7 cm/sec Med Peak E' Melecio: 8.6 cm/sec MV A max melecio: 96.9 cm/sec E/E' lat: 5.6 E/E' med: 7.6 MV E/A: 0.68 Ao V2 max: 123.2 cm/sec LV V1 max: 92.9 cm/sec PA V2 max: 104.8 cm/sec Ao max P.1 mmHg LV V1 max P.5 mmHg ECHO/Echo Complete Interpretation Summary Normal LV size. The estimated ejection fraction is 45 %. There is mild global hypokinesis of the left ventricle. Stage 1 diastolic dysfunction. Compared to previous study, the left ventricular systolic function is the same. . Ordering Physician: Albino Moreau Referring Physician: Brian Stone Performed By: Martina Gerber, [place], RVT
--- NOTE | 2021-01-22 12:33 | CT_ITS ---
STUDY: CT ABDOMEN AND PELVIS WITHOUT CONTRAST REASON FOR EXAM: Female, 70 years old. BLADDER CANCER-MONITOR RADIATION DOSAGE (If Supplied By Facility): CTDIvol = ( 16.99 ) mGy, DLP = ( 756.10 ) mGycm TECHNIQUE: Transaxial images were obtained from the dome of the diaphragm to the symphysis pubis without oral contrast, and without intravenous contrast. Sagittal and coronal images were reconstructed. Individualized dose optimization techniques were used for this CT. COMPARISON: 08/21/2020 FINDINGS: The visualized lung bases are unremarkable. The visualized portions of the heart are within normal limits. Normal liver. Normal gallbladder and extrahepatic biliary system. Normal spleen. Normal pancreas. Normal bilateral adrenal glands. Normal right kidney. Normal left kidney. Normal visualized stomach. Normal small intestine. Normal colon. There is non-visualization of the appendix. There is diffuse atherosclerotic calcification of the abdominal aorta, without a demonstrated aneurysm. Normal inferior vena cava. Normal retroperitoneum. Status post cystectomy with creation of a right lower quadrant ileal conduit. Normal abdominal wall. Interval development of acute or subacute mild compression fractures of L2 and L3 without retropulsion into the spinal canal. CT/Abdomen/Pelvis without Cont IMPRESSION: 1. No CT evidence of residual, recurrent, or metastatic bladder cancer. 2. Interval development of acute or subacute mild compression fractures of L2 and L3 without retropulsion into the spinal canal. Electronically Signed: Mitchell Rosas MD at 8:15 EDT Tel , Service support ,
--- NOTE | 2021-01-22 13:18 | RAD_ITS ---
STUDY: X-RAY CHEST REASON FOR EXAM: Female, 70 years old. BLADDER CANCER TECHNIQUE: PA and lateral views of the chest. COMPARISON: 08/21/2019 FINDINGS: Right internal jugular chest port which is unchanged. The lungs are clear and expanded. There is no demonstrated pleural abnormality. Normal size heart. Normal mediastinum and yaw. Normal visualized pulmonary arteries. Normal visualized aortic arch and descending thoracic aorta. Normal visualized thoracic spine. Normal visualized ribs, clavicles, and shoulders. There is no demonstrated abnormality of the visualized soft tissue structures of the upper abdomen. RAD/Chest PA and Lateral IMPRESSION: No active disease. Electronically Signed: Mitchell Rosas MD at 7:52 EDT Tel , Service support ,
[2021-01-22 13:30] LABS: CREATININE FINGERSTICK 4.2 mg/dL (0.55-1.02)
== END ==
PROVIDERS: PCP Family Medicine; Referring Provider Internal Medicine Medical Oncology; Visit Provider Internal Medicine Medical Oncology
DX: C67.8 Malignant neoplasm of overlapping sites of bladder (principal); I50.22 Chronic systolic (congestive) heart failure; I45.2 Bifascicular block; E87.6 Hypokalemia; I42.8 Other cardiomyopathies
CPT/HCPCS: 71046; 74176; 93306

== ENCOUNTER → 2021-03-19 15:21 | Outpatient (CLI) | payer MEDICARE, MEDICAID, SELFPAY ==
[2020-01-07 09:58] VITALS: BMI 40.0
[2020-12-29 10:28] VITALS: BMI 34.6
[2021-03-19 16:12] LABS: Anion Gap 4 (5-15); BUN 16 mg/dL (7-18); BUN/Creat Ratio 16.2 RATIO (10-20); Chloride 122 mmol/L (98-107); Creatinine, Serum 0.99 mg/dL (0.55-1.02); EST Glomerular Filtration Rate 59 mL/min (>60); Est Glom Filt Rate - Afr Amer 71 mL/min (>60); Glucose 61 mg/dL (74-106); Potassium 3.1 mmol/L (3.5-5.1); Sodium Level 146 mmol/L (136-145)
== END ==
PROVIDERS: PCP Family Medicine; Referring Provider Family Medicine; Visit Provider Family Medicine
DX: R60.0 Localized edema (principal)
CPT/HCPCS: 36591; 80048; A4216

== ENCOUNTER → 2021-03-23 08:46 | Outpatient (CLI) | payer MEDICARE, MEDICAID, SELFPAY ==
[2020-01-07 09:58] VITALS: BMI 40.0
[2021-03-23 11:32] LABS: Anion Gap 5 (5-15); BUN 16 mg/dL (7-18); BUN/Creat Ratio 7.1 RATIO (10-20); Calcium,Total 8.9 mg/dL (8.5-10.1); Chloride 111 mmol/L (98-107); Creatinine, Serum 2.25 mg/dL (0.55-1.02); EST Glomerular Filtration Rate 23 mL/min (>60); Est Glom Filt Rate - Afr Amer 28 mL/min (>60); Glucose 99 mg/dL (74-106); PTHIN 157.8 pg/mL (18.4-80.1); Potassium 4.2 mmol/L (3.5-5.1); Sodium Level 140 mmol/L (136-145)
== END ==
PROVIDERS: PCP Family Medicine; Visit Provider Family Medicine
DX: E83.51 Hypocalcemia (principal)
CPT/HCPCS: 36415; 80048; 82330; 83970

== ENCOUNTER → 2021-04-05 04:22 | Outpatient (CLI) | payer MEDICARE, MEDICAID, SELFPAY ==
[2020-01-07 09:58] VITALS: BMI 40.0
[2021-04-05 11:11] LABS: Anion Gap 4 (5-15); BUN 20 mg/dL (7-18); BUN/Creat Ratio 10.3 RATIO (10-20); Calcium,Total 8.8 mg/dL (8.5-10.1); Chloride 112 mmol/L (98-107); Creatinine, Serum 1.94 mg/dL (0.55-1.02); EST Glomerular Filtration Rate 27 mL/min (>60); Est Glom Filt Rate - Afr Amer 33 mL/min (>60); Glucose 123 mg/dL (74-106); Potassium 4.4 mmol/L (3.5-5.1); Sodium Level 139 mmol/L (136-145)
[2021-04-05 11:15] LABS: Vitamin D,25 Hydroxy 11.4 ng/mL
== END ==
PROVIDERS: PCP Family Medicine; Referring Provider Family Medicine; Visit Provider Family Medicine
DX: N25.81 Secondary hyperparathyroidism of renal origin (principal)
CPT/HCPCS: 36415; 80048; 82306

== ENCOUNTER → 2021-05-09 15:19 | Outpatient (CLI) | payer MEDICARE, MEDICAID, SELFPAY ==
[2020-01-07 09:58] VITALS: BMI 40.0
[2021-05-09 15:46] LABS: Hematocrit 32.7 % (37-47); Hemoglobin 10.1 g/dL (12.0-15.0); Mean Corp Hgb Conc 30.9 g/dL (32-36); Mean Corpuscular Volume 100.3 fL (81-99); Mean Platelet Vol. 10.3 fl (6.2-12.0); Platelet Count 147 K/mm3 (150-450); RBC Distribution Width CV 13.6 % (11.6-14.6); RBC Distribution Width SD 50.4 fl (35.1-43.9); Red Blood Count 3.26 M/mm3 (4.2-5.4); White Blood Count 6.4 K/mm3 (4.4-11.0)
[2021-05-09 16:10] LABS: ALB/GLOB Ratio 0.7 RATIO (0.9-2.4); AST(SGOT) 10 U/L (15-37); Alanine Aminotransfer ALT/SGPT 8 U/L (13-56); Alkaline Phosphatase 133 U/L (45-117); Anion Gap 6 (5-15); BUN 28 mg/dL (7-18); BUN/Creat Ratio 13.3 RATIO (10-20); Calcium,Total 8.7 mg/dL (8.5-10.1); Chloride 113 mmol/L (98-107); EST Glomerular Filtration Rate 25 mL/min (>60); Est Glom Filt Rate - Afr Amer 30 mL/min (>60); Globulin 4.4 g/dL (2.2-4.2); Glucose 94 mg/dL (74-106); Potassium 4.5 mmol/L (3.5-5.1); Protein, Total 7.4 g/dL (6.4-8.2); Sodium Level 142 mmol/L (136-145); Thyroid Stim Hormone (TSH) 2.14 uIU/mL (0.358-3.74)
== END ==
PROVIDERS: PCP Family Medicine; Referring Provider Family Medicine; Visit Provider Family Medicine
DX: E87.6 Hypokalemia (principal); R11.2 Nausea with vomiting, unspecified; N18.30 Chronic kidney disease, stage 3 unspecified; R53.83 Other fatigue
CPT/HCPCS: 36591; 80053; 84443; 85027; A4216

== ENCOUNTER → 2021-05-23 15:21 | Outpatient (CLI) | payer MEDICARE, MEDICAID, SELFPAY ==
[2020-01-07 09:58] VITALS: BMI 40.0
[2021-05-23 16:15] LABS: Anion Gap 6 (5-15); BUN 40 mg/dL (7-18); BUN/Creat Ratio 20.5 RATIO (10-20); Calcium,Total 8.9 mg/dL (8.5-10.1); Chloride 109 mmol/L (98-107); Creatinine, Serum 1.95 mg/dL (0.55-1.02); EST Glomerular Filtration Rate 27 mL/min (>60); Est Glom Filt Rate - Afr Amer 33 mL/min (>60); Glucose 118 mg/dL (74-106); Potassium 3.9 mmol/L (3.5-5.1); Sodium Level 141 mmol/L (136-145)
[2021-05-24 11:10] LABS: Hematocrit 35.3 % (37-47); Hemoglobin 10.9 g/dL (12.0-15.0); Mean Corp Hgb Conc 30.9 g/dL (32-36); Mean Corpuscular Hgb 30.1 pg (27.0-32.0); Mean Corpuscular Volume 97.5 fL (81-99); Platelet Count 153 K/mm3 (150-450); RBC Distribution Width CV 13.5 % (11.6-14.6); Red Blood Count 3.62 M/mm3 (4.2-5.4); White Blood Count 9.4 K/mm3 (4.4-11.0)
== END ==
PROVIDERS: PCP Family Medicine; Referring Provider Internal Medicine Cardiovascular Disease; Visit Provider Internal Medicine Cardiovascular Disease
DX: E87.6 Hypokalemia (principal); R11.2 Nausea with vomiting, unspecified; I45.10 Unspecified right bundle-branch block
CPT/HCPCS: 36591; 80048; 85027; A4216

== ENCOUNTER → 2021-07-06 10:51 | Outpatient (CLI) | payer MEDICARE, MEDICAID, SELFPAY ==
[2020-01-07 09:58] VITALS: BMI 40.0
[2021-07-06 11:25] LABS: Anion Gap 5 (5-15); BUN 30 mg/dL (7-18); BUN/Creat Ratio 15.9 RATIO (10-20); Calcium,Total 9.2 mg/dL (8.5-10.1); Chloride 110 mmol/L (98-107); Creatinine, Serum 1.89 mg/dL (0.55-1.02); EST Glomerular Filtration Rate 28 mL/min (>60); Est Glom Filt Rate - Afr Amer 34 mL/min (>60); Glucose 108 mg/dL (74-106); Magnesium 1.9 mg/dL (1.6-2.6); Potassium 4.6 mmol/L (3.5-5.1); Sodium Level 139 mmol/L (136-145)
[2021-07-06 11:38] LABS: BNP,B-Type NATRIURETIC PEPTIDE 24.2 pg/mL (0-100)
== END ==
PROVIDERS: PCP Family Medicine; Referring Provider Internal Medicine Cardiovascular Disease; Visit Provider Internal Medicine Cardiovascular Disease
DX: I50.22 Chronic systolic (congestive) heart failure (principal); R60.9 Edema, unspecified; I42.8 Other cardiomyopathies
CPT/HCPCS: 36591; 80048; 83735; 83880; A4216

== ENCOUNTER 2021-08-08 15:47 | Outpatient (CLI) | payer MEDICARE, MEDICAID, SELFPAY ==
[2020-01-07 09:58] VITALS: BMI 40.0
--- NOTE | 2021-08-08 16:00 | CT_ITS ---
EXAM: CT ABDOMEN AND PELVIS WITHOUT INTRAVENOUS CONTRAST : 1950 CLINICAL INDICATION: MONITOR-BLADDER CANCER TECHNIQUE: Helically acquired images were obtained of the abdomen and pelvis without intravenous contrast. This CT exam was performed using one or more of the following dose reduction techniques: automated exposure control, adjustment of the mA and/or kV according to patient size, and/or use of iterative reconstruction technique. This report was created using [employer] report generation technology. COMPARISON: January 22, 2021, August 21, 2020 FINDINGS: LOWER THORAX: Unremarkable. Lung bases are clear. No cardiomegaly. No significant pericardial effusion. ABDOMEN: LIVER: Unremarkable. Homogeneous. GALLBLADDER AND BILE DUCTS: Dependent density within the gallbladder suggestive of small stones and/or sludge unchanged from prior exam. No gallbladder distention or wall edema. No intra- or extrahepatic biliary ductal dilation. PANCREAS: Unremarkable. No focal cystic mass. SPLEEN: Unremarkable. Normal size without focal cystic or solid mass. ADRENALS: The low density 2.5 cm left adrenal lesion is unchanged prior exam likely representing lipid rich adenoma. KIDNEYS AND URETERS: See below. STOMACH AND BOWEL: Unremarkable. No stomach or bowel distention. No focal inflammatory change. PELVIS: APPENDIX: No evidence of acute appendicitis. BLADDER: Surgical changes of urinary cystectomy with ileal loop diversion again noted. Stable left hydronephrosis and hydroureter. REPRODUCTIVE: Unremarkable as visualized. No mass. ABDOMEN and PELVIS: INTRAPERITONEAL SPACE: Unremarkable. No ascites or other fluid collection. No free air. BONES/JOINTS: Compression deformities of the L2 and L3 vertebral bodies unchanged from prior exam. No suspicious lytic or blastic abnormality. SOFT TISSUES: Unremarkable. No discrete abdominal or pelvic wall hernia. VASCULATURE: Saccular type aneurysmal bulging of the distal descending thoracic aorta noted with Nexium diameter of 4.8 cm unchanged from prior exam. LYMPH NODES: Unremarkable. No enlarged lymph nodes. CT/Abdomen/Pelvis without Cont IMPRESSION: 1. No evidence of residual or recurrent neoplasm. 2. No change in the left hydronephrosis/hydroureter. 3. 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 4. Gallbladder stones/sludge. 5. Stable adrenal lesion. Individualized dose optimization techniques were used for this CT. at 0812 Reported and signed by: Jaleel Gaffney MD Electronically Signed: Jaleel Gaffney MD at 8:11 EST Tel , Service support ,
== END 2021-08-08 23:59 | disposition short-term general hospital (02) ==
LOC: CT 15:51
PROVIDERS: PCP Family Medicine; Referring Provider Internal Medicine Medical Oncology; Visit Provider Internal Medicine Medical Oncology
DX: C67.9 Malignant neoplasm of bladder, unspecified (principal)
CPT/HCPCS: 74176

== ENCOUNTER → 2022-05-01 | Outpatient (CLI) | payer MEDICARE, MEDICAID, SELFPAY ==
[2020-01-07 09:58] VITALS: BMI 40.0
--- NOTE | 2022-05-01 17:22 | MRI_ITS ---
STUDY: MR Brain W/O Contrast 05/01/2022 7:15 PM REASON FOR EXAM: Female, 71 years old. dizziness, h/o bladder cancer, high risk for reocc -- GFR 19 COMPARISON: 11.22.19 TECHNIQUE: Standardized multiplanar fat and water weighted pulse sequences were obtained. MR Brain W/O Contrast FINDINGS: There is mild cerebral atrophy with widening of the extra-axial spaces and ventricular dilatation. There are a limited number of small white matter hyperintensities, distributed throughout the deep white matter tracts of the cerebral hemispheres, consistent with mild chronic white matter ischemic changes. There is mild prominence of the vermian folia, consistent with atrophy of the vermis. The cerebellar hemispheres are normal. Normal bilateral basal ganglia. Normal thalami. There is no extra-axial fluid accumulation. Normal flow voids within the major intracranial circulation suggesting patency by spin echo criteria. Normal sella turcica, pituitary gland, infundibular stalk, optic chiasm and hypothalamus. Normal tectal plate and pineal gland. Normal midbrain, dagmar and medulla. Normal basal cisterns. Normal bilateral temporal bones. Normal bilateral internal auditory canals. No demonstrated orbital abnormality, within the constraints of a routine brain study. Normal visualized paranasal sinuses. Normal calvarium and skull base. Normal visualized soft tissue structures. Normal visualized upper cervical spine. Aspect score 10 MRI/Brain without Contrast IMPRESSION: (NOT LISTED IN ORDER OF SIGNIFICANCE) There are no acute intracranial findings. Electronically Signed: Doc Pond MD at 19:16 EDT ,
== END | disposition home or self-care (01) ==
LOC: MRI 17:22
PROVIDERS: PCP Family Medicine; Referring Provider Nurse Practitioner Family; Visit Provider Nurse Practitioner Family
DX: R42 Dizziness and giddiness (principal); Z85.51 Personal history of malignant neoplasm of bladder
CPT/HCPCS: 70551

== ENCOUNTER → 2022-08-12 | Outpatient (CLI) | payer MEDICARE, MEDICAID, SELFPAY ==
[2020-01-07 09:58] VITALS: BMI 40.0
--- NOTE | 2022-08-12 15:41 | CT_ITS ---
STUDY: CT ABDOMEN AND PELVIS WITHOUT CONTRAST REASON FOR EXAM: Female, 71 years old. MONITOR BLADDER CA RADIATION DOSAGE (If Supplied By Facility): CTDIvol = ( 20.92 ) mGy, DLP = ( 951.24 ) mGycm TECHNIQUE: Transaxial images were obtained from the dome of the diaphragm to the symphysis pubis without oral contrast, and without intravenous contrast. Sagittal and coronal images were reconstructed. Individualized dose optimization techniques were used for this CT. COMPARISON: Comparison is made with prior study dated 08/08/2021. FINDINGS: The visualized lung bases are unremarkable. Coronary artery calcification. Normal liver. There is a contracted stone filled gallbladder. Normal spleen. Normal pancreas. Vision 1.5 cm x 2.6 cm hypodense mass in the left adrenal gland. This is essentially unchanged. This most likely represents an adrenal adenoma. Mild degree of right hydronephrosis in the right hydroureter down to the level of the ileal loops. Marked degree of a left hydronephrosis and left hydroureter down to the ileostomy site. There is a left retroaortic renal vein. Normal visualized stomach. Normal small intestine. Fecal material is seen in the colon. There is non-visualization of the appendix. There is diffuse atherosclerotic calcification of the abdominal aorta, without a demonstrated aneurysm. Stable saccular type aneurysm dilatation of the distal descending thoracic aorta with a transverse dimension of 4.8 cm. Normal inferior vena cava. There is borderline retroperitoneal lymphadenopathy with enlarged nodes no greater than 10mm in the short axis diameter. The patient is status post cystectomy. Ileal loop is seen with the ostomy in the right anterior abdominal wall. Ileal loop is seen in the right lower quadrant. Stable loss of height of the superior endplate of the L2 and L3 vertebrae. CT/Abdomen/Pelvis without Cont IMPRESSION: Stable examination. Electronically Signed: Raheem Alvarez MD at 9:01 EST ,
== END | disposition home or self-care (01) ==
LOC: CT 15:40
PROVIDERS: PCP Family Medicine; Referring Provider Internal Medicine Medical Oncology; Visit Provider Internal Medicine Medical Oncology
DX: C67.9 Malignant neoplasm of bladder, unspecified (principal)
CPT/HCPCS: 74176

== ENCOUNTER → 2022-09-12 | Outpatient (CLI) | payer MEDICARE, MEDICAID, SELFPAY ==
[2020-01-07 09:58] VITALS: BMI 40.0
--- NOTE | 2022-09-12 15:03 | CDU_ITS ---
Reason For Study: dizziness Rt. Velocities/BP Lt. Velocities/BP Prox CCA 74.9/17.3 cm/sec. Prox CCA 94.9/17.6 cm/sec. Mid CCA 99.2/23.4 cm/sec. Mid CCA 94.9/16.3 cm/sec. Dist CCA 114.6/26.2 cm/sec. Dist CCA 101.1/20.0 cm/sec. Prox ICA 106.5/35.3 cm/sec. Prox ICA 79.0/18.8 cm/sec. Mid ICA 104.7/29.8 cm/sec. Mid ICA 80.2/21.2 cm/sec. Dist ICA 82.7/26.1 cm/sec. Dist ICA 83.9/24.9 cm/sec. Rt. ICA/CCA = 1.1. Lt. ICA/CCA = .9. Prox ECA 193.8/13.8 cm/sec. Prox ECA 156.3/8.6 cm/sec. Rt. Vert. 48.7/12.4 cm/sec. Lt. Vert. 42.1/14.6 cm/sec. Right Extracranial There is heterogeneous, irregular atherosclerotic plaque noted in the right common carotid artery. There is heterogeneous, irregular atherosclerotic plaque noted in the right internal carotid artery. There is heterogeneous, irregular atherosclerotic plaque noted in the right external carotid artery. Antegrade flow is noted in the right vertebral artery. Left Extracranial There is heterogeneous, irregular atherosclerotic plaque noted in the left common carotid artery. There is heterogeneous, irregular atherosclerotic plaque noted in the left internal carotid artery. There is heterogeneous, irregular atherosclerotic plaque noted in the left external carotid artery. Antegrade flow is noted in the left vertebral artery. Procedure Carotid Duplex 14125. This is a Carotid Duplex examination using B-mode, color flow and specral Doppler. The exam was diagnostic. Exam performed in department. VL/Carotid Duplex Ultrasound Interpretation Summary Minimal irregular plaque at the proximal right internal carotid artery with les s than 50% stenosis Less than 50% stenosis right external carotid artery Calcific plaque with shadowing at the proximal left internal carotid artery wit h less than 50% stenosis Less than 50% stenosis left external carotid artery Patent and antegrade vertebral arteries bilaterally Ordering Physician: Eddy Butterfield Performed By: Ace Bonds RVT
== END | disposition home or self-care (01) ==
PROVIDERS: PCP Family Medicine; Referring Provider Nurse Practitioner Family; Visit Provider Nurse Practitioner Family
DX: I65.22 Occlusion and stenosis of left carotid artery (principal); R42 Dizziness and giddiness
CPT/HCPCS: 93880

== ENCOUNTER 2022-09-26 06:38 | Emergency (ER) | payer MEDICARE, MEDICAID, SELFPAY ==
[2020-01-07 09:58] VITALS: BMI 40.0
[2022-09-26 06:39] VITALS: BP 164/100; PULSE 99; RESP 20; TEMP 35.8; O2SAT 91
--- NOTE | 2022-09-26 07:03 | RAD_ITS ---
STUDY: X-RAY CHEST REASON FOR EXAM: Female, 71 years old. Sob TECHNIQUE: PA and lateral views of the chest. COMPARISON: Comparison is made with prior study dated 01/22/2021. FINDINGS: EKG electrodes are seen. A right-sided Port-A-Cath is seen with the tip in the proximal portion of the superior vena cava. There is no demonstrated pleural abnormality. Normal size heart. Normal mediastinum and yaw. Normal visualized pulmonary arteries. There is atherosclerotic calcification of the aortic arch with tortuosity. There is demineralization of the osseous structures. Increased kyphosis. There is degenerative osteoarthritis of the bilateral shoulders. There is no demonstrated abnormality of the visualized soft tissue structures of the upper abdomen. RAD/Chest PA and Lateral IMPRESSION: No acute abnormality is seen. Electronically Signed: Raheem Alvarez MD at 8:10 EST ,
[2022-09-26] MEDS: Labetalol (Prefilled) 20 MG/4 ML IV (07:34)
[2022-09-26] MEDS: MethylPREDNISolone 125 MG/2 ML Vial IV (07:34)
[2022-09-26 07:36] LABS: Absolute Lymphocyte Count 1.56 X10^3/uL (0.83-4.51); Absolute Neutrophil Count 6.6 X10^3/uL (2.0-7.7); Basophil# 0.07 X10^3/uL; Basophil% 0.8 % (0-1); Eosinophil# 0.37 X10^3/uL; Hematocrit 35.1 % (37-47); Hemoglobin 10.8 g/dL (12.0-15.0); Lymphocyte # 1.56 X10^3/ul (0.83-4.51); Lymphocyte % 16.9 % (19-41); Mean Corp Hgb Conc 30.8 g/dL (32-36); Mean Corpuscular Hgb 29.2 pg (27.0-32.0); Mean Corpuscular Volume 94.9 fL (81-99); Mean Platelet Vol. 8.6 fl (6.2-12.0); Monocyte# 0.56 X10^3/uL; Monocyte% 6.1 % (0-10); NRBC Flagged by Analyzer 0 % (0-5); Neutrophil # 6.64 X10^3/uL (2.7-7.7); Neutrophil % 71.9 % (47-70); Platelet Count 158 K/mm3 (150-450); RBC Distribution Width CV 15.9 % (11.6-14.6); RBC Distribution Width SD 55.4 fl (35.1-43.9); White Blood Count 9.2 K/mm3 (4.4-11.0)
[2022-09-26 07:37] VITALS: BP 182/69; PULSE 66; RESP 19; TEMP 36.1; O2SAT 93; BMI 37.2
[2022-09-26 07:52] LABS: Anion Gap 4 (5-15); BUN 29 mg/dL (7-18); BUN/Creat Ratio 18.8 RATIO (10-20); Calcium,Total 6.3 mg/dL (8.5-10.1); Chloride 124 mmol/L (98-107); Creatinine, Serum 1.54 mg/dL (0.55-1.02); EST Glomerular Filtration Rate 35 mL/min (>60); Est Glom Filt Rate - Afr Amer 43 mL/min (>60); Estimated Creatinine Clearance 40.67 ml/min; Glucose 95 mg/dL (74-106); Potassium 3.3 mmol/L (3.5-5.1); Sodium Level 148 mmol/L (136-145)
[2022-09-26 08:07] VITALS: PULSE 82; RESP 20
[2022-09-26] MEDS: Ipratropium/Albuterol Sulfate 3 ML AMPUL.NEB INHALATION (08:07)
[2022-09-26 08:17] LABS: Magnesium 1.2 mg/dL (1.6-2.6)
--- NOTE | 2022-09-26 08:38 | EDS_ITS ---
HPI History of Present Illness Chief Complaint: Shortness of Breath Narrative Narrative: Patient is a 71-year-old female with past medical history of of bladder cancer as well as chronic renal failure and history of iron deficiency anemia hypertension as well as previous DVT currently on Eliquis. She also reports smoking 1 to 2 pack a days for multiple years but denies any formal diagnosis of COPD or need for supplemental oxygen. She states that over the past 6 to 7 days she has been having increased shortness of breath and cough and wheeze and she states this occurred after starting carvedilol. She denies any fevers chills or known sick contact. She states that she felt symptoms have been slowly worsening and secondary to this comes in for evaluation [facility] Medical History Abdominal wall mass (03/20/20) Anemia associated with chemotherapy Anemia due to chemotherapy Cancer-related pain Chemotherapy management, encounter for Chemotherapy management, encounter for Chronic systolic (congestive) heart failure COPD (chronic obstructive pulmonary disease) Deep vein thrombosis, lower right extremity (03/20/20) Diarrhea Dizziness Fatigue Fatigue Frequent headaches Gross hematuria H/O carcinoma of bladder Hydronephrosis of left kidney Hypokalemia Narcolepsy Nausea & vomiting Neutropenia due to and not concurrent with chemotherapy (~03/2019) Non-ischemic cardiomyopathy Other hydronephrosis Port-A-Cath in place Primary osteoarthritis, 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 Smoking history Thrombocytopenia due to drugs Uremia Urothelial carcinoma of bladder UTI (urinary tract infection) Home Medications tramadol 50 mg tablet 50 mg PO BID PRN PRN Pain 1-10 Or Fever 11/23/19 [History Last Taken Unknown] trazodone 50 mg tablet 50 mg PO QHS sleep 05/31/20 [History Last Taken 2 Days Ago ~08/19/20] dextroamphetamine sulfate 10 mg tablet 10 mg PO DAILY 09/10/21 [History Last Taken Unknown] ondansetron HCl 4 mg tablet 4 mg PO DAILY 09/10/21 [History Last Taken Unknown] apixaban 5 mg tablet 5 mg PO DAILY 01/18/22 [History Last Taken Unknown] furosemide 40 mg tablet (Lasix) 40 mg PO DAILY PRN Edema 01/18/22 [History Last Taken Unknown] pantoprazole 40 mg tablet,delayed release 40 mg PO DAILY 01/18/22 [History Last Taken Unknown] lidocaine-prilocaine 2.5 %-2.5 % topical cream 1 applic topical ONCE PRN port access 30 days #30 grams 01/21/22 [Rx Last Taken Unknown] polysaccharide iron complex 150 mg iron capsule (Ferrex) 150 mg PO DAILY #90 caps 03/25/22 [Rx Last Taken Unknown] cholecalciferol (vitamin D3) 325 mcg (13,000 unit) capsule 325 mcg PO DAILY 04/17/22 [History Last Taken Unknown] nystatin 100,000 unit/gram topical cream 1 applic topical ONCE #30 grams 05/06/22 [Rx Last Taken Unknown] albuterol sulfate 90 mcg/actuation aerosol inhaler 2 puff inhalation Q4H PRN PRN SHORT 09/10/22 [History Last Taken Unknown] atorvastatin 20 mg tablet 20 mg PO DAILY #90 tabs 09/11/22 [Rx Last Taken Unknown] carvedilol 3.125 mg tablet (Coreg) 3.125 mg PO BID #60 tabs 09/11/22 [Rx Last Taken Unknown] calcium carbonate 500 mg calcium (1,250 mg) chewable tablet (Calcium 500) 500 mg PO BID 30 days #60 tabs 09/26/22 [Rx Last Taken Unknown] magnesium oxide 400 mg PO DAILY 30 days #30 tabs 09/26/22 [Rx Last Taken Unknown] Allergy/AdvReac Type Severity Reaction Status Date / Time Penicillins Allergy Mild rash Verified 09/26/22 06:42 ciprofloxacin [From Cipro] AdvReac Nausea/Vom/ Verified 09/26/22 06:42 Diarrhea sulfamethoxazole AdvReac Nausea/Vom/ Verified 09/26/22 06:42 [From Bactrim] Diarrhea trimethoprim [From Bactrim] AdvReac Nausea/Vom/ Verified 09/26/22 06:42 Diarrhea Family History Brother Aneurysm Heart disease Mother Heart disease Cancer Father No problems noted. Surgical History BLADDER RESECTION Encounter for adjustment and management of vascular access device History of hysterectomy Social History Smoking Status: Current every day smoker tobacco type: cigarettes ROS ROS ED Constitutional Constitutional ED: Denies chills or fever(s) ENT ENT ED: Reports rhinorrhea; Denies sore throat Cardiovascular Cardiovascular: Denies chest pain Respiratory/Chest Respiratory/Chest: Reports cough and dyspnea Gastrointestinal Gastrointestinal: Denies abdominal pain, diarrhea, nausea or vomiting Genitourinary Genitourinary ED: Denies dysuria Musculoskeletal Musculoskeletal: Denies back pain or myalgias Integumentary Denies rash Neurologic Neurologic: Denies headache(s) Hematologic/Lymphatic Hematologic/Lymphatic: Reports easy bleeding and easy bruising EXAM Physical Exam Const Vital Signs: 09/26/22 06:39 09/26/22 06:53 09/26/22 07:37 Temperature 96.5 F L 97 F L Temperature Source Temporal Oral Pulse Rate 99 66 Respiratory Rate 20 H 19 H Respiratory Effort Labored Respiratory Pattern Blood Pressure 164/100 H 182/69 H Blood Pressure Mean 121 106 Pulse Ox 91 93 Oxygen Delivery Method Room Air Room Air 09/26/22 08:07 Temperature Temperature Source Pulse Rate 82 Respiratory Rate 20 H Respiratory Effort Respiratory Pattern Normal Blood Pressure Blood Pressure Mean Pulse Ox Oxygen Delivery Method Positive well nourished and well developed General Appearance ED: well developed HEENT Reports moist mucous membranes HEENT Narrative: No tongue or lip swelling no oral lesions no airway edema or compromise Eyes PERRL and EOMs intact bilaterally Neck supple and no JVD Chest Wall palpation of chest normal Resp Resp Narrative: Patient has mild tachypnea breath sounds are diminished throughout and there is diffuse expiratory wheeze and rhonchi noted. However no nasal flaring retractions or accessory muscle use Cardio regular rate and regular rhythm GI normal to inspection, nondistended, normoactive bowel sounds, non-tender, non- distended and no masses Auscultation: normoactive bowel sounds Palpation: soft Extremity normal to inspection Extremity Narrative: No asymmetric edema no pitting edema negative Homans' sign bilaterally Neuro oriented x3 and CN's II-XII intact bilaterally Sensorium / Orientation: alert Psych mental status grossly normal Skin no rashes or lesions noted MDM MDM MDM Narrative Medical decision making narrative: Patient presented to the ER with complaint of shortness of breath after starting carvedilol. She does have a history of smoking and recently quit 1 year ago and prior to that states she smoked 1 to 2 packs a day for multiple years but denies any formal diagnosis of COPD emphysema or need for supplemental oxygen. Chart review reveals that less than 1% of people can experience bronchospasm or pneumonitis with carvedilol. However there is also concern patient could be developing pneumonia pneumothorax pleural effusion or have some electrolyte abnormality causing her symptoms and therefore blood work was obtained. Patient shows chronic anemia which is at patient's baseline. Chest x-ray reveals no acute lung pathology. Labs show chronic renal insufficiency with a creatinine of 1.54 which is actually improved from baseline. Her potassium is slightly low at 3.3 but mainly her calcium is 6.3 and magnesium 1.2 which would be causes for her shortness of breath. Secondary to this case was discussed with nephrology who recommends that patient can be given oral supplementation at this time as she is not having tetany or severe distress or hypoxia. The patient was informed of this treatment plan and also recommended she follow-up with nephrology on an outpatient basis. At this time as she is not hypoxic or in acute respiratory distress there is no need for further work-up and she can otherwise be safely discharged with symptomatic care Lab Data Attestation: I reviewed the patient's lab results. Labs: Laboratory Results - last 24 hr 09/26/22 09/26/22 09/26/22 07:28 07:28 07:28 WBC 9.2 RBC 3.70 L Hgb 10.8 L Hct 35.1 L MCV 94.9 MCH 29.2 MCHC 30.8 L RDW Std Deviation 55.4 H RDW Coeff of Mica 15.9 H Plt Count 158 MPV 8.6 Immature Gran % (Auto) 0.300 Neut % (Auto) 71.9 H Lymph % (Auto) 16.9 L Grand % (Auto) 6.1 Eos % (Auto) 4.0 Baso % (Auto) 0.8 Absolute Neuts (auto) 6.6 Absolute Lymphs (auto) 1.56 Nucleated RBC % 0 Sodium 148 H Potassium 3.3 L Chloride 124 H Carbon Dioxide 20.0 L Anion Gap 4 L BUN 29 H Creatinine 1.54 H Estim Creat Clear Calc 40.67 Est GFR (MDRD) Af Amer 43 L Est GFR (MDRD) Non-Af 35 L BUN/Creatinine Ratio 18.8 Glucose 95 Calcium 6.3 L* Magnesium 1.2 L Radiography Diagnostic Testing: Clinical Impression(s) from Imaging Studies Chest X-Ray 09/26/22 07:03 IMPRESSION: No acute abnormality is seen. Electronically Signed: Raheem Alvarez MD at 8:10 EST , Chest x-ray as interpreted by the emergency medicine physician reveals no acute infiltrate pneumothorax or pleural effusion Discharge Plan Triage Chief Complaint: Shortness of Breath ED Provider: Todd Delgado Dx/Rx/DC Orders Clinical Impression: Hypocalcemia, Hypomagnesemia, Chronic kidney insufficiency, Dyspnea Instructions: Hypocalcemia Dc, Hypomagnesemia Dc Prescriptions: New magnesium oxide 400 mg magnesium tablet 400 mg PO DAILY 30 Days Qty: 30 0RF calcium carbonate [Calcium 500] 500 mg calcium (1,250 mg) tablet,chewable 500 mg PO BID 30 Days Qty: 60 0RF No Action furosemide [Lasix] 40 mg tablet 40 mg PO DAILY PRN (Reason: Edema) ondansetron HCl 4 mg tablet 4 mg PO DAILY Label Comments: take 1 tablet by mouth every 8 hours dextroamphetamine sulfate 10 mg tablet 10 mg PO DAILY Label Comments: take 1 tablet by mouth twice a day pantoprazole 40 mg tablet,delayed release (DR/EC) 40 mg PO DAILY Label Comments: take 1 tablet by mouth daily apixaban 5 mg tablet 5 mg PO DAILY cholecalciferol (vitamin D3) 325 mcg (13,000 unit) capsule 325 mcg PO DAILY nystatin 100,000 unit/gram cream 1 applic topical ONCE Qty: 30 4RF albuterol sulfate 90 mcg/actuation HFA aerosol inhaler 2 puff inhalation Q4H PRN PRN (Reason: SHORT) tramadol 50 MG tablet 50 mg PO BID PRN PRN (Reason: Pain 1-10 Or Fever) trazodone 50 MG tablet 50 mg PO QHS lidocaine-prilocaine 2.5-2.5 % cream 1 applic topical ONCE PRN (Reason: port access) 30 Days Qty: 30 2RF polysaccharide iron complex [Ferrex 150] 150 mg iron capsule 150 mg PO DAILY Qty: 90 0RF atorvastatin 20 mg tablet 20 mg PO DAILY Qty: 90 3RF carvedilol [Coreg] 3.125 mg tablet 3.125 mg PO BID Qty: 60 12RF Rx Instructions: must administer with a meal/food Primary Care Provider: José Miguel Guajardo Referrals: José Miguel Guajardo DO [Primary Care Provider] - Activity Restrictions/Additional Instructions: Your work-up today does not show any pneumonia or fluid within your lungs. It does indicate that your shortness of breath is most likely from your low calcium and magnesium. Please take the supplements as directed and if you have any further concerns or worsening of symptoms please return for repeat evaluation Disposition Disposition: Home, Self Care
[2022-09-26 09:09] VITALS: BP 168/77; PULSE 62; RESP 15; O2SAT 93
== END 2022-09-26 09:10 | disposition home or self-care (01) ==
PROVIDERS: Emergency Provider Emergency Medicine; PCP Family Medicine; Visit Provider Emergency Medicine
DX: E83.51 Hypocalcemia (principal); J44.9 Chronic obstructive pulmonary disease, unspecified; I50.22 Chronic systolic (congestive) heart failure; I42.8 Other cardiomyopathies; E83.42 Hypomagnesemia; N18.9 Chronic kidney disease, unspecified; R06.00 Dyspnea, unspecified; F17.210 Nicotine dependence, cigarettes, uncomplicated; Z86.718 Personal history of other venous thrombosis and embolism; Z79.01 Long term (current) use of anticoagulants; Z79.899 Other long term (current) drug therapy
CPT/HCPCS: 36591; 71046; 80048; 83735; 85025; 94640; 96374; 96375; 99285; A4216

== ENCOUNTER → 2022-11-21 | Outpatient (CLI) | payer MEDICARE, MEDICAID, SELFPAY ==
[2020-01-07 09:58] VITALS: BMI 40.0
--- NOTE | 2022-11-22 10:33 | PFT ---
INTRODUCTION: The patient is a 72-year-old female that presents for pulmonary function studies secondary to a diagnosis of COPD. Respiratory therapy reported good patient effort. Bronchodilators were used during testing. INTERPRETATION: Forced expiration spirometry demonstrates the presence of a mild large airways obstructive ventilatory defect. There was no significant response to aerosolized bronchodilators. Spirograms are of good quality and plateau gradually indicating slow emptying of the lungs. Body plethysmography was performed and revealed an elevated RV to 130% of predicted, indicative of underlying air trapping. Diffusing capacity by single breath CO was within normal limits. IMPRESSION: Irreversible mild large airways obstructive ventilatory defect with associated air trapping.
== END | disposition home or self-care (01) ==
PROVIDERS: PCP Family Medicine; Referring Provider Family Medicine; Visit Provider Family Medicine
DX: J44.9 Chronic obstructive pulmonary disease, unspecified (principal)
CPT/HCPCS: 94060; 94726; 94729

== ENCOUNTER → 2023-03-07 | Outpatient (CLI) | payer MEDICARE, MEDICAID, SELFPAY ==
[2020-01-07 09:58] VITALS: BMI 40.0
--- NOTE | 2023-03-07 13:50 | ECHOCS_ITS ---
Reason For Study: Non Rheumatic MV Procedure This was a 2D Doppler, Color Flow transthoracic echocardiogram. The study was technically difficult. Patient scanned supine due to left shoulder injury. Unable to perform strain analysis. Contrast injection was used. Exam performed in department. Left Ventricle Normal LV size. Left ventricular systolic function is normal. The estimated ejection fraction is 55 %. Stage 1 diastolic dysfunction. No regional wall motion abnormalities noted. Right Ventricle Normal RV size. Normal systolic function. Atria Normal left atrium. Normal right atrium. Mitral Valve Normal mitral valve. Tricuspid Valve Normal tricuspid valve. Aortic Valve Normal aortic valve. Pulmonic Valve Normal pulmonic valve. Great Vessels Normal aortic root. The pulmonary artery is normal size. Normal inferior vena cava. Pericardium/Pleural No pericardial effusion. Medication Port access by Leah Hanks RN. Diluted definity 3ml given slow IV push to enhance endocardial definition. MMode/2D Measurements & Calculations LVIDd: 4.8 cm IVSd: 1.2 cm Ao root diam: 3.4 cm LVIDs: 3.5 cm LVPWd: 1.2 cm LA dimension: 2.7 cm RVDd: 3.4 cm FS: 26.9 % LAV(MOD-bp): 46.4 ml LA A4 area: 17.5 cm2 RA A4 area: 12.1 cm2 LAV(MOD-bp) Indexed: 25.0 ml/m2 LAV(MOD-sp2): 44.4 ml LAV(MOD-sp4): 41.2 ml Time Measurements MV dec time: 0.24 sec Doppler Measurements & Calculations MV E max melecio: 65.4 cm/sec Lat Peak E' Melecio: 10.6 cm/sec Med Peak E' Melecio: 6.6 cm/sec MV A max melecio: 114.5 cm/sec E/E' lat: 6.2 E/E' med: 9.9 MV E/A: 0.57 MV V2 max: 130.6 cm/sec MV P1/2t max melecio: 82.6 cm/sec Ao V2 max: 126.1 cm/sec MV max P.8 mmHg MV P1/2t: 94.9 msec Ao max P.4 mmHg MV V2 mean: 65.1 cm/sec MV dec slope: 255.2 cm/sec2 Ao V2 mean: 87.6 cm/sec MV mean P.1 mmHg Ao mean P.5 mmHg MV V2 VTI: 32.9 cm MVA(P1/2t): 2.3 cm2 Ao V2 VTI: 26.4 cm AV (velocity ratio): 0.82 LV V1 max: 91.5 cm/sec PA V2 max: 117.4 cm/sec LV V1 max P.4 mmHg PA V2 mean: 80.3 cm/sec LV V1 mean P.9 mmHg LV V1 mean: 65.6 cm/sec LV V1 VTI: 21.7 cm ECHO/Echo Complete W/ Contrast Interpretation Summary Normal LV size. Left ventricular systolic function is normal. The estimated ejection fraction is 55 %. Stage 1 diastolic dysfunction. Contrast injection was performed. Ordering Physician: Albino Moreau Referring Physician: Albino Moreau Performed By: Brodwolf, [place], RCS
== END | disposition home or self-care (01) ==
LOC: CVS 13:46
PROVIDERS: PCP Family Medicine; Referring Provider Internal Medicine Cardiovascular Disease; Visit Provider Internal Medicine Cardiovascular Disease
DX: I34.0 Nonrheumatic mitral (valve) insufficiency (principal)
CPT/HCPCS: 93306; Q9957; A4216; C8929

== ENCOUNTER 2023-08-20 13:47 | Outpatient (CLI) | payer MEDICARE, MEDICAID, SELFPAY ==
[2020-01-07 09:58] VITALS: BMI 40.0
--- OUTSIDE RECORDS SUMMARY | 2023-08-20 14:17 | XMS RPT_ITS | CCD ---
Author Name Unknown Address [id number] [place] [address] Organization [facility] Results Test Name Value Interpretation Reference Range Facil ity Procedures Date Procedure Procedure Detail Performing Clinician Start: 03-21-2020 Antibody screen Summary Purpose Family History No Family History Records FoundNo Family History Records FoundNo Family History Records Found Advance Directives No Advanced Directives Records FoundNo Advanced Directives Records FoundNo Advanced Directives Records Found Hospital Course Note HNO ID: [id number] Author: Christiane Alcala MD Service: Hospital Medicine Author Type: Physician Type: Discharge Summary Filed: 03/25/2020 3:46 PM Note Text: DISCHARGE SUMMARY PATIENT NAME: Letty Rogers Code Status: Full Code Highest Readmission Risk Score: 28 The 30 day readmissions risk score is derived from an internally validated risk model which evaluates patient level characteristics, utilization history, medication orders and lab results up until the day of discharge. Patients with a score of 40 or above are considered highest risk for readmission. Specific patient level drivers will be listed at the bottom of the summary. Admission Information Admission Information ADMIT DATE: 03/20/2020 DISCHARGE DATE: 03/25/2020 MY DOCTORS AND MEDICAL TEAM: My Main Hospital Doctor: Shonna Alcala MD Primary Care Provider: José Miguel Guajardo DO My Medical Team Members: Treatment Team: Attending Provider: Shonna Alcala MD Consulting: Shailesh Yin Consulting: Karis Azar (more content not included)... Additional Source Comments INFORMATION SOURCE (unrecogn ized section and content) DATE CREATED AUTHOR AUTHOR'S ORGANIZ ATION 05/29/2020 [facility] ([place]) DATE CREATED AUTHOR AUTHOR'S ORGANIZ ATION 10/25/2020 [facility] FOR RECORDS PERTAINING TO PATIENTS WHO ARE OR HAVE BEEN ENROLLED IN A CHEMICAL DEPENDENCY/SUBSTANCEABUSE PROGRAM, SOME INFORMATION MAY BE OMITTED. This clinical summary was aggregated from multiple sources. Caution should be exercised in using it in the provision of clinical care. This summary normalizes information from multiple sources, and as a consequence, information in this document may materially change the coding, format and clinical context of patient data. In addition, data may be omitted in some cases. CLINICAL DECISIONS SHOULD BE BASED ON THE PRIMARY CLINICAL RECORDS. [facility] provides no warranty or guarantee of the accuracy or completeness of information in this document.
[2023-08-20 14:37] LABS: Albumin, Serum 2.4 g/dL (3.2-5.0); BUN 23 mg/dL (7-18); BUN/Creat Ratio 8.6 RATIO (10-20); Calcium,Total 8.9 mg/dL (8.5-10.1); Chloride 114 mmol/L (98-107); Creatinine, Serum 2.66 mg/dL (0.55-1.02); EST Glomerular Filtration Rate 19 mL/min (>60); Est Glom Filt Rate - Afr Amer 23 mL/min (>60); Glucose 104 mg/dL (74-106); Phosphorus 3.2 mg/dL (2.5-4.9); Potassium 4.2 mmol/L (3.5-5.1); Sodium Level 140 mmol/L (136-145)
[2023-08-20 14:49] LABS: PTHIN 178.9 pg/mL (18.4-80.1)
[2023-08-20 17:54] LABS: Hematocrit 34.1 % (37-47); Hemoglobin 10.4 g/dL (12.0-15.0); Mean Corp Hgb Conc 30.5 g/dL (32-36); Mean Corpuscular Hgb 31.1 pg (27.0-32.0); Mean Corpuscular Volume 102.1 fL (81-99); Mean Platelet Vol. 9.5 fl (6.2-12.0); Platelet Count 233 K/mm3 (150-450); RBC Distribution Width CV 15.8 % (11.6-14.6); RBC Distribution Width SD 59.6 fl (35.1-43.9); Red Blood Count 3.34 M/mm3 (4.2-5.4); White Blood Count 7.6 K/mm3 (4.4-11.0)
== END 2023-08-20 13:48 | disposition home or self-care (01) ==
LOC: MEDOUTP 13:47
PROVIDERS: PCP Family Medicine; Visit Provider Nurse Practitioner Adult Health
DX: D50.9 Iron deficiency anemia, unspecified (principal); N18.4 Chronic kidney disease, stage 4 (severe)
CPT/HCPCS: 36591; 80069; 82306; 83970; 85027; A4216

== ENCOUNTER 2023-10-14 13:55 | Outpatient (CLI) | payer MEDICARE, MEDICAID, SELFPAY ==
[2020-01-07 09:58] VITALS: BMI 40.0
[2023-10-14 16:39] LABS: PTHIN 240.7 pg/mL (18.4-80.1)
[2023-10-14 16:40] LABS: ALB/GLOB Ratio 0.5 RATIO (0.9-2.4); AST(SGOT) 17 U/L (15-37); Alanine Aminotransfer ALT/SGPT 8 U/L (13-56); Albumin, Serum 2.5 g/dL (3.2-5.0); Alkaline Phosphatase 111 U/L (45-117); Anion Gap 3 (5-15); BUN 19 mg/dL (7-18); BUN/Creat Ratio 7.8 RATIO (10-20); Calcium,Total 8.6 mg/dL (8.5-10.1); Chloride 114 mmol/L (98-107); Creatinine, Serum 2.43 mg/dL (0.55-1.02); EST Glomerular Filtration Rate 21 mL/min (>60); Est Glom Filt Rate - Afr Amer 25 mL/min (>60); Globulin 4.8 g/dL (2.2-4.2); Glucose 104 mg/dL (74-106); Phosphorus 3.6 mg/dL (2.5-4.9); Potassium 4.4 mmol/L (3.5-5.1); Protein, Total 7.3 g/dL (6.4-8.2); Sodium Level 141 mmol/L (136-145)
== END 2023-10-14 13:56 | disposition home or self-care (01) ==
LOC: MEDOUTP 13:55
PROVIDERS: PCP Family Medicine; Referring Provider Internal Medicine Nephrology; Visit Provider Internal Medicine Nephrology
DX: Z00.00 Encounter for general adult medical examination without abnormal findings (principal); N18.4 Chronic kidney disease, stage 4 (severe); Z45.2 Encounter for adjustment and management of vascular access device
CPT/HCPCS: 36591; 80053; 82306; 83970; 84100; A4216

== ENCOUNTER 2023-12-01 12:20 | Outpatient (CLI) | payer MEDICARE, MEDICAID, SELFPAY ==
[2020-01-07 09:58] VITALS: BMI 40.0
[2023-12-01 12:46] LABS: Hematocrit 31.3 % (37-47); Hemoglobin 9.5 g/dL (12.0-15.0); Mean Corp Hgb Conc 30.4 g/dL (32-36); Mean Corpuscular Hgb 30.4 pg (27.0-32.0); Mean Platelet Vol. 9.4 fl (6.2-12.0); Platelet Count 215 K/mm3 (150-450); RBC Distribution Width CV 15.4 % (11.6-14.6); RBC Distribution Width SD 55.3 fl (35.1-43.9); Red Blood Count 3.13 M/mm3 (4.2-5.4)
[2023-12-01 13:02] LABS: Albumin, Serum 2.6 g/dL (3.2-5.0); BUN 25 mg/dL (7-18); BUN/Creat Ratio 9.9 RATIO (10-20); Calcium,Total 8.7 mg/dL (8.5-10.1); Chloride 111 mmol/L (98-107); Creatinine, Serum 2.53 mg/dL (0.55-1.02); EST Glomerular Filtration Rate 20 mL/min (>60); Est Glom Filt Rate - Afr Amer 24 mL/min (>60); Glucose 116 mg/dL (74-106); Phosphorus 3.4 mg/dL (2.5-4.9); Potassium 4.9 mmol/L (3.5-5.1); Sodium Level 140 mmol/L (136-145)
[2023-12-01 13:06] LABS: Vitamin D,25 Hydroxy 37.3 ng/mL
== END 2023-12-01 12:21 | disposition home or self-care (01) ==
PROVIDERS: PCP Family Medicine; Referring Provider Internal Medicine Nephrology; Visit Provider Internal Medicine Nephrology
DX: J45.50 Severe persistent asthma, uncomplicated (principal); N18.4 Chronic kidney disease, stage 4 (severe)
CPT/HCPCS: 36591; 80069; 82306; 83970; 85027; A4216

== ENCOUNTER 2024-11-12 10:31 | Outpatient (CLI) | payer MEDICARE, MEDICAID, SELFPAY ==
[2020-01-07 09:58] VITALS: BMI 40.0
[2024-11-12 10:46] LABS: Absolute Lymphocyte Count 1.97 X10^3/uL (0.83-4.51); Absolute Neutrophil Count 5.4 X10^3/uL (2.0-7.7); Basophil# 0.06 X10^3/uL; Basophil% 0.7 % (0-1); Eosinophils% 2.5 % (0-5); Hematocrit 28.6 % (37-47); Hemoglobin 8.9 g/dL (12.0-15.0); Lymphocyte # 1.97 X10^3/ul (0.83-4.51); Lymphocyte % 24.6 % (19-41); Mean Corp Hgb Conc 31.1 g/dL (32-36); Mean Corpuscular Hgb 34.2 pg (27.0-32.0); Mean Platelet Vol. 9.9 fl (6.2-12.0); Monocyte# 0.38 X10^3/uL; Monocyte% 4.7 % (0-10); NRBC Flagged by Analyzer 0 % (0-5); Neutrophil # 5.38 X10^3/uL (2.7-7.7); Neutrophil % 67.1 % (47-70); Platelet Count 210 K/mm3 (150-450); RBC Distribution Width CV 14.8 % (11.6-14.6); RBC Distribution Width SD 59.8 fl (35.1-43.9)
[2024-11-12 11:11] LABS: Anion Gap 11 (5-15); BUN 20 mg/dL (4-19); BUN/Creat Ratio 8.7 RATIO (10-20); Calcium,Total 8.4 mg/dL (7.6-11.0); Carbon Dioxide 13.1 mmol/L (21.0-32.0); Chloride 114 mmol/L (98-108); Creatinine, Serum 2.29 mg/dL (0.70-1.20); EST Glomerular Filtration Rate 22 (>60); Glucose 114 mg/dL (70-99); Magnesium 1.6 mg/dL (1.5-2.2); Potassium 3.8 mmol/L (3.3-5.1); Sodium Level 138 mmol/L (133-145)
[2024-11-12 18:39] LABS: Xtra Tube EP Lab EXTRA TUBE
[2024-11-15 18:17] LABS: ALB/GLOB Ratio 0.8 RATIO (0.9-2.4); AST(SGOT) 15 U/L (<=31); Alanine Aminotransfer ALT/SGPT 5 U/L (<=34); Albumin, Serum 2.9 g/dL (3.4-4.8); Ferritin 397 ng/mL (22-378); Globulin 3.9 g/dL (2.2-4.2); Protein, Total 6.8 g/dL (5.9-8.4); Total Bilirubin 0.24 mg/dL (0.00-1.30); Vitamin B12 360 pg/mL (180-914)
[2024-11-15 18:26] LABS: Indirect Bilirubin 0.14 mg/dL (0.00-1.00)
[2024-11-15 18:42] LABS: Iron 53 ug/dL (50-170); Iron Binding Capacity,Unsat 59 ug/dL (228-428)
[2024-11-15 18:54] LABS: Iron Binding Capacity,Total 111 ug/dL (250-450)
[2024-11-16 10:41] LABS: Alkaline Phosphatase 132 U/L (35-104)
[2024-11-17 04:07] LABS: GGTP 11 IU/L (0-60)
== END 2024-11-12 23:59 | disposition home or self-care (01) ==
LOC: MEDOUTP 10:31
PROVIDERS: Internal Medicine Medical Oncology; PCP Family Medicine; Referring Provider Internal Medicine Cardiovascular Disease; Visit Provider Internal Medicine Cardiovascular Disease
DX: C67.8 Malignant neoplasm of overlapping sites of bladder (principal)
CPT/HCPCS: 36591; 80048; 82040; 82247; 82248; 82607; 82728; 82977; 83540; 83550; 83735; 84075; 84080; 84155; 84450; 84460; 85025; A4216

== ENCOUNTER → 2024-11-25 | Outpatient (CLI) | payer MEDICARE, MEDICAID, SELFPAY ==
[2020-01-07 09:58] VITALS: BMI 40.0
--- NOTE | 2024-11-25 09:49 | CT_ITS ---
PROCEDURE: CT CHEST, ABD, PELVIS WO CONT 11/25/2024 REASON FOR EXAM: BLADDER CA TECHNIQUE: Chest, abdomen and pelvis CT without intravenous contrast. Coronal and Sagittal reconstruction series were provided. One or more dose reduction techniques were used (e.g., Automated exposure control, adjustment of the mA and/or kV according to patient size, use of iterative reconstruction technique. FINDINGS: CT CHEST: Hardware: Right internal jugular chest port. Lymph nodes: Unremarkable Heart and Vasculature: No cardiomegaly. Atherosclerotic calcifications of the thoracic aorta. Thoracic aorta and pulmonary arteries have normal contours; noncontrast technique limits evaluation. Coronary Artery Calcifications: Present Lungs and Airways: No pulmonary nodule Pleura: No pleural effusion Bones: Unremarkable CT ABDOMEN / PELVIS: Noncontrast technique limits evaluation of the abdominal and pelvic viscera. Liver: Cirrhosis. No focal mass Gallbladder: Several calcified gallstones. Spleen: Normal size. Pancreas: Normal size without evidence of mass surrounding inflammation or ductal dilation. Adrenals: Unremarkable. Kidneys: 2 mm nonobstructing stone lower pole of the right kidney. We are left hydronephrosis and ureteral dilatation with severe parenchymal atrophy consistent with chronic obstruction. Bladder: Status post cystectomy with a right upper quadrant ileal conduit. Reproductive Organs: Unremarkable. Bowel: No bowel obstruction. Appendix: The appendix is not identified. There is no inflammatory process identified in the right lower quadrant to suggest appendicitis. Lymph nodes: Unremarkable. Vasculature: Mild diffuse atherosclerotic calcifications are noted. Peritoneum / Retroperitoneum: Unremarkable Bones: Multiple chronic mild compression fractures of the lumbar spine. CT/CT Chest, Abd, Pelvis WO Cont IMPRESSION: No CT evidence of residual, recurrent, or metastatic bladder cancer. Chronic obstruction of the left ureter. Cirrhosis. Cholelithiasis. Reading Location: [id number]
== END | disposition home or self-care (01) ==
PROVIDERS: PCP Family Medicine; Referring Provider Internal Medicine Cardiovascular Disease; Visit Provider Internal Medicine Cardiovascular Disease
DX: C67.8 Malignant neoplasm of overlapping sites of bladder (principal); I42.8 Other cardiomyopathies
CPT/HCPCS: 71250; 74176; 93005

== ENCOUNTER → 2024-12-08 | Outpatient (CLI) | payer MEDICARE, MEDICAID, SELFPAY ==
[2020-01-07 09:58] VITALS: BMI 40.0
--- NOTE | 2024-12-08 10:10 | ECHODONC_ITS ---
Reason For Study Reason For Study: Chemotherapy Procedure This was a 2D Doppler, Color Flow transthoracic echocardiogram. Myocardial strain analysis was performed in this exam to aid in the assessment of cardiac function. Technically difficult study, patient scanned supine due to left arm pain. Exam performed in department. Left Ventricle Normal LV size. The global longitudinal strain = -16.1% (abnormal). The left ventricular ejection fraction is 45 %. Stage 1 diastolic dysfunction. There is mild global hypokinesis of the left ventricle. Right Ventricle Normal RV size. Normal systolic function. Atria Normal left atrium. Normal right atrium. Mitral Valve Normal mitral valve. Mild (1+) mitral valve insufficiency. Tricuspid Valve Normal tricuspid valve. Aortic Valve Trisinus/trileaflet aortic valve. Pulmonic Valve Normal pulmonic valve. Great Vessels Normal aortic root. The pulmonary artery is normal size. Inferior vena cava collapse with respiration. Pericardium/Pleural No pericardial effusion. MMode/2D Measurements & Calculations LVIDd: 5.5 cm IVSd: 0.94 cm Ao root diam: 3.8 cm LVIDs: 4.3 cm LVPWd: 0.81 cm RVDd: 3.1 cm FS: 20.8 % LAV(MOD-bp): 34.5 ml LVAd ap4: 38.5 cm2 SV(MOD-sp4): 66.7 ml LAV(MOD-bp) Indexed: 19.8 ml/m2 LVLd ap4: 9.1 cm SI(MOD-sp4): 38.2 ml/m2 LAV(MOD-sp2): 26.1 ml EDV(MOD-sp4): 135.9 ml LAV(MOD-sp4): 38.7 ml EDV(sp4-el): 138.8 ml LVAs ap4: 25.6 cm2 LVLs ap4: 7.7 cm ESV(MOD-sp4): 69.2 ml ESV(sp4-el): 72.9 ml EF(MOD-sp4): 49.1 % EF(sp4-el): 47.4 % SV(sp4-el): 65.8 ml LA A4 area: 16.7 cm2 RA A4 area: 14.2 cm2 TAPSE: 2.1 cm Time Measurements MV dec time: 0.28 sec Doppler Measurements & Calculations MV E max melecio: 79.6 cm/sec Lat Peak E' Melecio: 8.2 cm/sec Med Peak E' Melecio: 7.0 cm/sec MV A max melecio: 132.7 cm/sec E/E' lat: 9.7 E/E' med: 11.3 MV E/A: 0.60 MV V2 max: 157.9 cm/sec MV P1/2t max melecio: 90.6 cm/sec Ao V2 max: 138.1 cm/sec MV max P.0 mmHg MV P1/2t: 98.7 msec Ao max P.6 mmHg MV V2 mean: 77.1 cm/sec MV dec slope: 268.8 cm/sec2 Ao V2 mean: 94.8 cm/sec MV mean P.9 mmHg Ao mean P.1 mmHg MV V2 VTI: 43.2 cm MVA(P1/2t): 2.2 cm2 Ao V2 VTI: 32.1 cm AV (velocity ratio): 0.86 LV V1 max: 113.8 cm/sec LV V1 max P.2 mmHg LV V1 mean P.1 mmHg LV V1 mean: 83.5 cm/sec LV V1 VTI: 27.6 cm ECHO/ONC Echo Complete Interpretation Summary Normal LV size. The global longitudinal strain = -16.1% (abnormal). The left ventricular ejection fraction is 45 %. Stage 1 diastolic dysfunction. The global longitudinal strain is mildly abnormal. The global longitudinal stra in = -16.1% (abnormal). Ordering Physician: Albino Moreau Referring Physician: Albino Moreau Performed By: Kingston Joyner RCS
== END | disposition home or self-care (01) ==
LOC: CVS 10:06
PROVIDERS: PCP Family Medicine; Referring Provider Internal Medicine Cardiovascular Disease; Visit Provider Internal Medicine Cardiovascular Disease
DX: I34.0 Nonrheumatic mitral (valve) insufficiency (principal)
CPT/HCPCS: 93306; 93356

== ENCOUNTER → 2024-12-29 | Outpatient (CLI) | payer MEDICARE, MEDICAID, SELFPAY ==
[2020-01-07 09:58] VITALS: BMI 40.0
--- NOTE | 2024-12-29 14:44 | MRI_ITS ---
PROCEDURE: BRAIN WITHOUT CONTRAST 12/29/2024 REASON FOR EXAM: HEADACHES/HX OF BLADDER CA TECHNIQUE: Noncontrast brain MRI. Multiplanar and multisequence images were obtained. COMPARISON: 05/01/2022 FINDINGS: There is a small focus of increased diffusion signal in the left cerebellum. This could represent a subacute lacunar infarct. Please correlate clinically. There is mild mastoid fluid on the right. There is mild atrophy with compensatory ventricular prominence. No pathologic flow voids are identified. Mild periventricular chronic small-vessel ischemic changes present. There is no acute or chronic hemorrhage. Contrast was not administered. MRI/Brain without Contrast IMPRESSION: Punctate increased signal within the left cerebellum which may represent a suba cute lacunar type infarction. Underlying atrophy and microvascular disease Reading Location[facility]
== END | disposition home or self-care (01) ==
LOC: OPMRI 14:42
PROVIDERS: PCP Family Medicine; Referring Provider Internal Medicine Medical Oncology; Visit Provider Internal Medicine Medical Oncology
DX: R51.9 Headache, unspecified (principal); C67.8 Malignant neoplasm of overlapping sites of bladder
CPT/HCPCS: 70551

== ENCOUNTER 2025-02-28 13:17 | Inpatient (IN) | payer MEDICARE, MEDICAID, SELFPAY ==
[2020-01-07 09:58] VITALS: BMI 40.0
[2025-02-28] VITALS (12 sets, daily range): BP systolic 70–115; BP diastolic 32–76; PULSE 70–83; RESP 16–21; TEMP 36.6–37.6; O2SAT 94–100; BMI 29.7
--- NOTE | 2025-02-28 14:05 | EKG12_ITS ---
Test Reason : ABN LABS Blood Pressure : */* mmHG Vent. Rate : 72 BPM Atrial Rate : 72 BPM P-R Int : 174 ms QRS Dur : 134 ms QT Int : 460 ms P-R-T Axes : 77 88 72 degrees QTcB Int : 503 ms Normal sinus rhythm Right bundle branch block Abnormal ECG Confirmed by SUZANNA GÓMEZ, BLAS ([id number]), scientific editor CECE HATHAWAY ([id number]) on 03/01/2025 1:02:30 PM Referred By: Confirmed By: BLAS BRISENO MD
--- NOTE | 2025-02-28 14:26 | EX.ED.DYSGE1 ---
HPI History of Present Illness Chief Complaint: Abn Labs Narrative Narrative: Patient is a 74-year-old female past medical history of bladder cancer with urostomy in place, anemia, hypokalemia, CHF who presented to the emergency department with chief complaint of low potassium. Per patient's family members at bedside and the patient she had blood work obtained earlier today and noted that her potassium was low therefore they sent her here for further evaluation management. Per the patient she has been having a lot of diarrhea and over the last several months she has had multiple falls per family members. [place] Per family at bedside Adult Protective Services is supposed to come tomorrow to assess her living situation. Patient did note that she has had a significant weight change in the last 6 months and notes that her recapper oncologist ordered CAT scans and they did not find anything to cause this. 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 COPD (chronic obstructive pulmonary disease) Chronic systolic (congestive) heart failure Hypokalemia UTI (urinary tract infection) Anemia due to chemotherapy Chemotherapy management, encounter for Urothelial carcinoma of bladder Neutropenia due to and not concurrent with chemotherapy (~03/2019) Thrombocytopenia due to drugs Anemia associated with chemotherapy Frequent headaches Fatigue Cancer-related pain Smoking history Other hydronephrosis Gross hematuria Chemotherapy management, encounter for Home Medications ?Medication ?Instructions ?Recorded ?Last Taken ?Type ondansetron HCl 4 mg tablet 4 mg PO DAILY 09/10/21 02/28/25 History apixaban 5 mg tablet 5 mg PO DAILY 01/18/22 02/28/25 History pantoprazole 40 mg tablet,delayed 40 mg PO DAILY 01/18/22 02/28/25 History release nystatin 100,000 unit/gram topical 1 applic topical ONCE #30 grams 05/06/22 Unknown Rx cream ipratropium 20 mcg-albuterol 100 1 puff inhalation BID 02/14/23 02/28/25 History mcg/actuation mist for inhalation (Combivent Respimat) polysaccharide iron complex 150 mg 350 mg PO BID 02/14/23 02/28/25 History iron capsule (Ferrex) albuterol sulfate 90 mcg/actuation 2 puff inhalation Q6 PRN wheezing 11/15/24 02/28/25 History aerosol inhaler dextroamphetamine sulfate 10 mg 20 mg PO QDAY 11/15/24 Unknown History tablet furosemide 20 mg tablet 20 mg PO DAILY 02/28/25 Unknown History Allergy/AdvReac Type Severity Reaction Status Date / Time Penicillins Allergy Mild rash Verified 02/28/25 13:20 ciprofloxacin (From Cipro) AdvReac Nausea/Vom/ Verified 02/28/25 13:20 Diarrhea sulfamethoxazole (From AdvReac Nausea/Vom/ Verified 02/28/25 13:20 Bactrim) Diarrhea trimethoprim (From Bactrim) AdvReac Nausea/Vom/ Verified 02/28/25 13:20 Diarrhea Family History Brother Aneurysm Heart disease Mother Heart disease Cancer Father No problems noted. Surgical History BLADDER RESECTION History of hysterectomy Encounter for adjustment and management of vascular access device Social History adopted: No Smoking Status: Heavy Smoker (>10/day) ROS ROS ED ROS Narrative Constitutional: Patient denies any fevers or chills Eyes: Denies changes double vision blurry vision Cardiovascular: Denies chest pain Respiratory: Denies coughing wheezing shortness of breath Abdomen: Complains of diarrhea as noted above denies any abdominal pain nausea vomiting : Denies any urinary symptoms Neurological: Complains of generalized weakness with multiple falls as noted above denies any numbness, tingling Skin: Denies any rashes or lesions EXAM Physical Exam Narrative Exam Narrative: General: Patient was lying in bed rest comfortably did not appear to be acute distress Head: Atraumatic, normocephalic Eyes: PERRL bilaterally, EOMI biotic no conjunctival injection noted Neck: Soft, supple, trachea midline Cardiovascular: Regular rate and rhythm no murmurs gallops rubs noted Respiratory: Clear to auscultation bilaterally Abdomen: Soft, nondistended, nontender to palpation Extremities: +4/5 strength noted in the bilateral upper and lower extremities, radial pulses +2/4 in the bilateral extremities Neurological: Patient follow commands knew that she was at [facility] the year is 2024 Skin: Warm, dry, tact no rashes lesions noted Const Vital Signs: 02/28/25 13:18 02/28/25 14:17 02/28/25 14:23 Temperature 98 F Temperature Source Oral Pulse Rate 80 70 Respiratory Rate 19 H 21 H Respiratory Effort Normal Short of Breath Respiratory Pattern Normal Blood Pressure 87/53 L 112/45 L Blood Pressure Mean 64 67 Pulse Ox 99 100 Oxygen Delivery Method Room Air Room Air 02/28/25 15:00 02/28/25 16:08 02/28/25 17:00 Temperature Temperature Source Pulse Rate 70 Respiratory Rate 18 Respiratory Effort Respiratory Pattern Blood Pressure 115/38 L Blood Pressure Mean 63 Pulse Ox 99 98 Oxygen Delivery Method Room Air 02/28/25 18:00 Temperature Temperature Source Pulse Rate 78 Respiratory Rate 17 Respiratory Effort Respiratory Pattern Blood Pressure 111/76 Blood Pressure Mean 87 Pulse Ox 94 Oxygen Delivery Method Room Air MDM MDM MDM Narrative Medical decision making narrative: Patient is a 74-year-old female who presents to the emergency department chief complaint of hypokalemia with multiple falls. On the differential diagnose includes but limited to hypokalemia, hypomagnesia, UTI, dehydration. Once workup is obtained reviewed she will be reevaluated. Patient be given a liter of IV fluids. Nursing notified me that when they attempted to straight cath the patient she had significant excoriation and redness along her lower abdominal wall and noted some purulent drainage in this area as well. Patient was refusing catheterization. Patient CBC was reviewed showed no evidence leukocytosis white blood count normal 10.5, hemoglobin was 7, platelet count was 175. Patient's INR was 2.4, PT of 26.9. Patient sodium normal 136, potassium was low indicating hypokalemia at 2.7 she will be given 40 mill equivalents of replacement orally and IV, carbon dioxide low at 7.9. Patient creatinine elevated to 7.24 she has chronic kidney disease. Patient lactic acid normal less than 1, magnesium was 1.3 she will be given 2 g of magnesium sulfate as well. Patient EKG reviewed shows sinus rhythm with a rate of 72 bpm. Evidence of right bundle branch block. She has a history of this. Patient's power of grapple crew leader daughter arrived and after discussion we will place a medical hold on the patient as she is unable to care for herself and she lives alone. She has been sitting in feces and not caring for herself per daughter at bedside and son who was here earlier. They state that once again Adult Protective Services was scheduled to come out to the house tomorrow. Will discuss case with hospitalist for admission for likely placement. Patient was given 2.5 mg of Haldol intravenously. Patient case discussed with hospitalist Dr. Dias who accept patient for admission. Patient was ultimately notified. Lab Data Labs: Laboratory Results - last 24 hr 02/28/25 02/28/25 02/28/25 14:31 16:03 16:09 WBC 10.5 RBC 2.31 L Hgb 7.0 L Hct 21.8 L MCV 94.4 MCH 30.3 MCHC 32.1 RDW Std Deviation 59.8 H RDW Coeff of Mica 17.3 H Plt Count 175 MPV 11.8 Immature Gran % (Auto) 0.600 Neut % (Auto) 81.5 H Lymph % (Auto) 11.5 L [place] % (Auto) 6.1 Eos % (Auto) 0.2 Baso % (Auto) 0.1 Absolute Neuts (auto) 8.6 H Absolute Lymphs (auto) 1.20 Nucleated RBC % 0 PT 26.9 H INR 2.4 APTT 34.8 Sodium 136 Potassium 2.7 L* Chloride 114 H Carbon Dioxide 7.9 L* Anion Gap 15 BUN 37 H Creatinine 2.74 H Est GFR (MDRD) Non-Af 18 L BUN/Creatinine Ratio 13.4 Glucose 96 Lactic Acid < 1.0 Calcium 6.7 L Magnesium 1.3 L Discharge Plan Triage Chief Complaint: Abn Labs ED Provider: Steve Weathers Dx/Rx/DC Orders Clinical Impression: Adult failure to thrive, Urothelial carcinoma of bladder, 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, Anemia of chronic disease Prescriptions: No Action ondansetron HCl 4 mg tablet 4 mg PO DAILY Patient Comments: take 1 tablet by mouth every 8 hours dextroamphetamine sulfate 10 mg tablet 20 mg PO QDAY pantoprazole 40 mg tablet,delayed release (DR/EC) 40 mg PO DAILY Patient Comments: take 1 tablet by mouth daily apixaban 5 mg tablet 5 mg PO DAILY nystatin 100,000 unit/gram cream 1 applic topical ONCE Qty: 30 4RF Combivent Respimat 20-100 mcg/actuation mist 1 puff inhalation BID polysaccharide iron complex [Ferrex 150] 150 mg iron capsule 350 mg PO BID albuterol sulfate 90 mcg/actuation HFA aerosol inhaler 2 puff inhalation Q6 PRN (Reason: wheezing) furosemide 20 mg tablet 20 mg PO DAILY Rx Instructions: pt states takes prn Primary Care Provider: José Miguel Guajardo Referrals: José Miguel Guajardo DO [Primary Care Provider] - Print Language: Guatemalan Disposition Disposition: Acute Care Hospital [facility] Capacity Capacity Assessment Tool Patient lacks Decision Making Capacity: unable to understand, reason and deliberate health related choices: Yes Risk to self and or others?: Yes Risk of leaving the patient care unit and or hospital?: Yes Legal Integrated Log[employer] Programs Director Define type of medical hold:: Power of grapple crew leader for healthcare (PO[facility])
[2025-02-28] MEDS: 0.9% Normal Saline (1000mL) 1,000 ML 999 ML IV (14:31)
[2025-02-28 14:42] LABS: Hematocrit 21.8 % (37-47); Hemoglobin 7.0 g/dL (12.0-15.0); Immature Granulocytes Count 0.060 X10^3/uL (0.0-0.0); Mean Corp Hgb Conc 32.1 g/dL (32-36); Mean Corpuscular Volume 94.4 fL (81-99); Mean Platelet Vol. 11.8 fl (6.2-12.0); NRBC Flagged by Analyzer 0 % (0-5); Platelet Count 175 K/mm3 (150-450); RBC Distribution Width CV 17.3 % (11.6-14.6); RBC Distribution Width SD 59.8 fl (35.1-43.9); Red Blood Count 2.31 M/mm3 (4.2-5.4); White Blood Count 10.5 K/mm3 (4.4-11.0)
--- NOTE | 2025-02-28 15:00 | ED.RN ---
Patient's family member spoke to this RN in [facility] regarding mother's self neglect stating the patient is refusing to take care of self at home and is also refusing to let family assist her. Patient will be incontinent and cannot walk more than 20 ft by self. Daughter also states that the patient is telling her she needs to go to her house to pick the diamonds up off the floor. Ashley POSADAS notified of daughter's concerns.
[2025-02-28 15:40] LABS: Magnesium 1.3 mg/dL (1.5-2.2)
--- NOTE | 2025-02-28 15:40 | ED.RN ---
this rn and other rn attempted straight cath. pt screaming ow at every touch. pt perineal skin and abdfolds extremley red, broken skin, bleeding, puss, and inflamed, pt also has dried stool down legs . pt is screaming at this nurse and another nurse to leave her alone. pt throwing arms and getting agitated screaming leave me alone right now this nurse and other nurse stop attempt at straight cath. this nurse educating pt about redness and soreness on abd skin, pt states she wants to go home, pt states i love my head hanging off the edge of the bed this nurse and other nurse boost pt in bed pt states you guys better quit jerking me around this nurse and other nurse cover pt up with blankets, call light within reach and bed locked in lowest positon. pt states these sheets are suppose to be warm? this is fucking ridiculous this nurse and other nurse exit room.
[2025-02-28 15:46] LABS: BUN 37 mg/dL (4-19); BUN/Creat Ratio 13.4 RATIO (10-20); Calcium,Total 6.7 mg/dL (7.6-11.0); Chloride 114 mmol/L (98-108); Glucose 96 mg/dL (70-99)
[2025-02-28 15:55] LABS: Anion Gap 15 (5-15); Carbon Dioxide 7.9 mmol/L (21.0-32.0); Potassium 2.7 mmol/L (3.3-5.1)
[2025-02-28 16:41] LABS: Prothrombin Time (Protime)PT. 26.9 SECONDS (11.7-14.9)
[2025-02-28 16:42] LABS: Partial Thromboplast Time 34.8 Seconds (24.1-36.2)
[2025-02-28] MEDS: Potassium Chloride Oral Soln 20 MEQ/15 ML UDC 40 MEQ PO (16:42)
--- NOTE | 2025-02-28 18:45 | PCM.HP.STD ---
HPI - General General Date of Admission: 02/28/25 Date of Service: 02/28/25 Chief Complaint: Adult failure to thrive HPI Narrative XOCHITL TREVINO, is a 74 F who presented to [facility] ED on 02/28/2025 with adult failure to thrive. Medical history is significant for bladder cancer s/p cystectomy with ileal conduit and neoadjuvant chemotherapy, CKD stage IV, chronic anemia due to iron deficiency and kidney disease, COPD and DVT. Patient lives at home alone. Daughter is medical power of document review attorney. Daughter notes that patient has been doing very poorly recently. She has had persistent nausea with intermittent vomiting and diarrhea along with worsening weakness and falls at home. She has essentially been unable to care for self at home. Daughter noted that Adult Protective Services was apparently supposed to come to the house tomorrow to assess her living situation. Patient had labs drawn this morning and then saw Dr. Stone in the office. Labs were notable for hemoglobin 7.0 (baseline closer to 8), sodium 136, potassium 2.7, chloride 114, bicarb 8, BUN 37, creatinine 2.74 (apparently at baseline), magnesium 1.3, calcium 6.7. Given these findings and that she looked dehydrated, Dr. Stone sent her to the ED for further evaluation. Patient reported to the ED physician that she wanted to go home, but it was noted she was not alert and oriented x 3 and lacked medical decision-making capacity. Thus, medical hold was placed and hospitalist was contacted for admission. I saw the patient at bedside in the ED. Unfortunately no children were present. Patient was laying back in bed and in no acute distress. She was able to tell me her name and where she was but did not know the month or year. She also had poor insight into what brought her into the hospital today. She denied any acute pain or discomfort currently. Will be admitted for further management. 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 COPD (chronic obstructive pulmonary disease) Chronic systolic (congestive) heart failure Hypokalemia UTI (urinary tract infection) Anemia due to chemotherapy Chemotherapy management, encounter for Urothelial carcinoma of bladder Neutropenia due to and not concurrent with chemotherapy (~03/2019) Thrombocytopenia due to drugs Anemia associated with chemotherapy Frequent headaches Fatigue Cancer-related pain Smoking history Other hydronephrosis Gross hematuria Chemotherapy management, encounter for Home Medications ?Medication ?Instructions ?Recorded ?Last Taken ?Type ondansetron HCl 4 mg tablet 4 mg PO DAILY 09/10/21 02/28/25 History apixaban 5 mg tablet 5 mg PO DAILY 01/18/22 02/28/25 History pantoprazole 40 mg tablet,delayed 40 mg PO DAILY 01/18/22 02/28/25 History release nystatin 100,000 unit/gram topical 1 applic topical ONCE #30 grams 05/06/22 Unknown Rx cream ipratropium 20 mcg-albuterol 100 1 puff inhalation BID 02/14/23 02/28/25 History mcg/actuation mist for inhalation (Combivent Respimat) polysaccharide iron complex 150 mg 350 mg PO BID 02/14/23 02/28/25 History iron capsule (Ferrex) albuterol sulfate 90 mcg/actuation 2 puff inhalation Q6 PRN wheezing 11/15/24 02/28/25 History aerosol inhaler dextroamphetamine sulfate 10 mg 20 mg PO QDAY 11/15/24 Unknown History tablet furosemide 20 mg tablet 20 mg PO DAILY 02/28/25 Unknown History Allergy/AdvReac Type Severity Reaction Status Date / Time Penicillins Allergy Mild rash Verified 02/28/25 13:20 ciprofloxacin (From Cipro) AdvReac Nausea/Vom/ Verified 02/28/25 13:20 Diarrhea sulfamethoxazole (From AdvReac Nausea/Vom/ Verified 02/28/25 13:20 Bactrim) Diarrhea trimethoprim (From Bactrim) AdvReac Nausea/Vom/ Verified 02/28/25 13:20 Diarrhea Family History Brother Aneurysm Heart disease Mother Heart disease Cancer Father No problems noted. Surgical History BLADDER RESECTION History of hysterectomy Encounter for adjustment and management of vascular access device Social History adopted: No Smoking Status: Heavy Smoker (>10/day) ROS Review of Systems ROS Unobtainable: due to mental status Constitutional Constitutional: Reports fatigue and weakness; Denies chills or fever(s) Eyes Eyes: Denies change in vision Cardiovascular Cardiovascular: Denies chest pain Respiratory/Chest Respiratory/Chest: Denies shortness of breath at rest Gastrointestinal Gastrointestinal: Reports diarrhea, nausea and vomiting; Denies abdominal pain Musculoskeletal Musculoskeletal: Denies arthralgias or myalgias Vital Signs Vital Signs Vital Signs: 02/28/25 13:18 02/28/25 14:17 02/28/25 14:23 Temperature 98 F Temperature Source Oral Pulse Rate 80 70 Respiratory Rate 19 H 21 H Respiratory Effort Normal Short of Breath Respiratory Pattern Normal Blood Pressure 87/53 L 112/45 L Blood Pressure Mean 64 67 Pulse Ox 99 100 Oxygen Delivery Method Room Air Room Air 02/28/25 15:00 02/28/25 16:08 02/28/25 17:00 Temperature Temperature Source Pulse Rate 70 Respiratory Rate 18 Respiratory Effort Respiratory Pattern Blood Pressure 115/38 L Blood Pressure Mean 63 Pulse Ox 99 98 Oxygen Delivery Method Room Air 02/28/25 18:00 Temperature Temperature Source Pulse Rate 78 Respiratory Rate 17 Respiratory Effort Respiratory Pattern Blood Pressure 111/76 Blood Pressure Mean 87 Pulse Ox 94 Oxygen Delivery Method Room Air Physical Exam Const alert, no apparent distress and average body habitus Constitutional Narrative: Elderly female, fatigued and chronically ill-appearing, alert and oriented to person and place but not time, otherwise laying back comfortably in bed and in no acute distress. General Appearance: cooperative and comfortable HEENT normocephalic, head/scalp atraumatic, hearing grossly normal bilaterally and nasal mucous membranes and turbinates normal HEENT Narrative: Dry mucous membranes. Eyes PERRL, EOMs intact bilaterally and conjunctivae normal Neck full ROM Chest inspection of chest normal Resp normal respiratory effort, normal air movement, no use of accessory muscles and clear to auscultation bilaterally Cardio regular rate, regular rhythm, no murmurs and peripheral pulses 2+ throughout GI normal to inspection, nondistended, normoactive bowel sounds, soft to palpation, non-tender and non-distended Back/Spine normal ROM Extremity normal to inspection, full ROM and no pedal edema Neuro moves all extremities and no focal motor deficits Sensorium / Orientation: oriented to person and oriented to place Speech: speech normal Psych Mood & Affect: anxious Results Lab / Micro Data 02/28/25 14:31 02/28/25 14:31 Labs: Laboratory Results - last 24 hr 02/28/25 14:31: WBC 10.5, RBC 2.31 L, Hgb 7.0 L, Hct 21.8 L, MCV 94.4, MCH 30.3, MCHC 32.1, RDW Std Deviation 59.8 H, RDW Coeff of Mica 17.3 H, Plt Count 175, MPV 11.8, Immature Gran % (Auto) 0.600, Neut % (Auto) 81.5 H, Lymph % (Auto) 11.5 L, [place] % (Auto) 6.1, Eos % (Auto) 0.2, Baso % (Auto) 0.1, Absolute Neuts (auto) 8.6 H, Absolute Lymphs (auto) 1.20, Nucleated RBC % 0, Sodium 136, Potassium 2.7 L*, Chloride 114 H, Carbon Dioxide 7.9 L*, Anion Gap 15, BUN 37 H, Creatinine 2.74 H, Est GFR (MDRD) Non-Af 18 L, BUN/Creatinine Ratio 13.4, Glucose 96, Calcium 6.7 L, Magnesium 1.3 L 02/28/25 16:03: PT 26.9 H, INR 2.4, APTT 34.8 02/28/25 16:09: Lactic Acid < 1.0 Assessment & Plan Assessment/Plan (1) Adult failure to thrive: (2) Nausea vomiting and diarrhea: PLAN: Plan Patient is a 74-year-old female who presented [facility] ED on 02/28/2025 with adult failure to thrive. 1. Adult failure to thrive with altered mental status versus cognitive impairment ? Admit under inpatient status to PCU. PT/OT/case management consulted. Lives at home alone, has had progressively worsening functional status due to nausea/vomiting/diarrhea, poor p.o. intake, worsening weakness and falls. Was apparently found at home in her own feces recently. Adult Protective Services was planning to go to the house on 03/01. Medical hold is in place currently as patient lacks decision-making capacity; alert and oriented to person and place but not time on admission and poor insight into medical condition. Strongly suspect patient will need placement on discharge. Avoid sedating medications as able. 2. CKD stage IV with worsening metabolic acidosis ? Nephrology consulted. Creatinine 2.77 on admit which appears to be at baseline. However, as worsening acidosis with bicarb 7.9. Notably bicarb was low at 8.2 on labs in 02/08, and was 13 on 11/12. Previously normal in November 2023. Sodium 136 and chloride 114 with no anion gap noted, so is consistent with NAGMA. Will give 150ml/hr of sodium bicarb infusion over 5 hours this evening with repeat labs tomorrow morning. Hold home Lasix. Appreciate further nephrology recommendations. 3. Hypokalemia and hypomagnesemia ? Potassium 2.7, magnesium 1.3 on admit. Presume secondary to GI losses. Replete as needed. Monitor daily labs. 4. Worsening chronic anemia due to iron deficiency and kidney disease ? Hemoglobin 7.0 on admit, baseline around 8. Denies dark or bloody stools recently. Denies any blood in vomitus. Giving IV fluids as above so suspect hemoglobin may drop, but patient is hemodynamically stable so we will hold on transfusion for now. Follow-up a.m. CBC. Continue home iron supplement. 5. Nausea/vomiting/diarrhea ? Unclear etiology but is likely related to worsening metabolic acidosis as above. No episodes of vomiting or diarrhea since admission. Utilize medications for symptom control as needed. Okay for regular diet as tolerated. Further treatment as above. Chronic medical conditions: ? History of bladder cancer: Follows with Dr. Stone, last office visit on morning of admission. History of cystectomy with conduit and neoadjuvant chemotherapy. No inpatient oncology needs, continue close outpatient follow-up. ? Chronic HFrEF: Follows with cardiology, last office visit in November. Most recent echo in December showed EF 45% with mild global hypokinesis of the LV and stage I diastolic dysfunction. Appeared volume down on admit as noted above. Holding home Lasix. ? History of DVT: Had DVT back in March 2020, unclear on how extensive. Will decrease home dosing to Eliquis 2.5 mg twice daily given poor kidney function and anemia as above. ? COPD: Stable on room air on admit. Continue home inhalers. ? GERD: Continue home PPI. DVT prophylaxis: Not indicated, on Eliquis CODE STATUS: Full code, unverified Expected disposition: TBD Total clinical time spent by myself addressing the patient's medical issues, reviewing all the data, and collaborating with patient's care team: 75 minutes. Charges/Coding Visit Charges Inpatient E&M: 16060 Init Hosp L3
--- NOTE | 2025-02-28 20:31 | CM.ED ---
Social Work SW met with daughter who stated that patient has been living at home by herself and is unable to care for her ADLs. Daughter states that patient has been sitting in her own feces as she is unable to clean herself, that she is excoriated, that she is unable to walk any distance and refuses to comply with treatments that could improve her condition. 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 While in ED, patient initially refused admission and adamantly denies wanting to go to a SNF. Physician met with patients daughter and a medical hold was placed as patient is unable to maintain safety or care for herself at this time. SW, RN and Charge Nurse met with patient to explain that she was being admitted, patient initially said no, that the hospital was too cold. Patient was reassured that the upstairs would be warmer and they would also provide blankets. Patient agreeable to hospital admission at this time. Patients daughter reports to being HPOA. Daughter also stated that patient is involved with [facility] and APS has been contacted and was set to visit patient tomorrow. Daughter is interested in SNF placement. Message left for APS that patient is admitted at this time. Ashley Hi, FURNACE PUNCHER, TRUCK CATERER
[2025-02-28] MEDS: Potassium Chloride 10mEq/100mL 10 MEQ/100 ML IV.SOLN. 100 MEQ IV BOLUS ×3 (20:35→23:12)
[2025-02-28] MEDS: Lactated Ringers 1,000 ML 500 ML IV (21:15)
[2025-02-28] MEDS: Nystatin Ointment 1 APPLIC TOPICAL (22:49)
--- OUTSIDE RECORDS SUMMARY | 2025-02-28 23:03 | XMS RPT_ITS | CCD ---
Author Organization [facility] Care Team Providers Care Electric Switch Tester Name Role Phone Casandra, Dr. Valdez Primary Care Provider Casandra, Dr. Valdez Referring Provider 1([facility])[phone] Albino Moreau Attending Provider 1([facility])-[phone] Shira INTEGRATED CIRCUIT IC LAYOUT DESIGNER, INTEGRATED CIRCUIT IC LAYOUT DESIGNER-C Eunice Attending Provider 1([facility] )[phone] [place], Dr. Torres Attending Provider 1([facility])[phone] Parminder Guajardo Primary Care Provider 1([facility])[phone] Dr. Parminder Guajardo Referring Provider 1([facility])[phone] [facility], Dr. Torres Attending Provider 1([facility])[phone] Parminder Guajardo Primary Care Provider 1([facility])[phone] Dr. Parminder Guajardo Referring Provider 1([facility])[phone] [place], Dr. Torres Attending Provider 1([facility])[phone] Roof INTEGRATED CIRCUIT IC LAYOUT DESIGNER, [facility] Attending Provider 1([facility])[phone] MD Jeff Lamar Attending Provider 1([facility])[phone] Dr. Albino Moreau Attending Provider 1([facility])[phone] Deven Kelly Attending Provider 1([facility])[phone] Dr. Parminder Guajardo Primary Care Provider 1([facility])[phone] Dr. Parminder Guajardo Referring Provider 1([facility][phone] Attending Provider 1([facility])[phone] Roof INTEGRATED CIRCUIT IC LAYOUT DESIGNER, INTEGRATED CIRCUIT IC LAYOUT DESIGNER-Lupe Fernández Attending Provider 1([facility])[phone] MD Jeff Lamar Attending Provider 1([facility])[phone] Dr. Albino Moreau Attending Provider 1([facility])-[phone] Deven Kelly Attending Provider 1([facility])[phone] Roof INTEGRATED CIRCUIT IC LAYOUT DESIGNER, INTEGRATED CIRCUIT IC LAYOUT DESIGNER-C Eddy Fernández Referring Provider Casandra, Dr. Valdez Other Provider Dr. Bolivar Swartz Attending Provider Casandra, Dr. Valdez Primary Care Provider Casandra, Dr. Valdez Referring Provider Dr. Brian Stone Attending Provider Kaity Monteiro Attending Provider Unavailabl e Lizzeth, Dr. Posada Attending Provider Casandra DO, Parminder Holbrook Primary Care Provider Casandra, Dr. Valdez Primary Care Provider Kaity Monteiro Attending Provider Unavailemily Guajardo, Dr. Valdez Referring Provider [phone] Albino Moreau Attending Provider Casandra, Dr. Valdez Primary Care Provider Casandra DO, Parminder Holbrook Primary Care Provider CLUTTER, NAIN Referring Unavailable CASANDRA, PARMINDER HOLBROOK Primary Care Unavailable CASANDRA, PARMINDER HOLBROOK Primary Care Unavailable CASANDRA, PARMINDER HOLBROOK Primary Care Unavailable Casandra DO, Dr. Valdez Primary Care Provider Casandra DO, Dr. Valdez Referring Provider Dr. Albino Moreau MD Attending Provider Dr. Albino Moreau MD Referring Provider Dr. Brian Stone MD Attending Provider Dr. Roscoe Nguyễn MD Attending Provider Dr. Brian Stone MD Referring Provider Ned GÓMEZ, Dr. Stuart Hughes Referring Provider Albino Moreau Referring Unavailable Albino Moreau Attending Unavailable Parminder Guajardo Primary Care Unavailable Brian Stone Referring Unavailable Brian Stone Attending Unavailable Casandra, Parminder Primary Care Unavailable Lizzeth, Albino Referring Unavailable Lizzeth, Calvin Attending Unavailable Casandra, Parminder Primary Care Unavailable Casandra, Parminder Primary Care Unavailable Lizzeth, Calvin Attending Unavailable Lizzeth, Albino Referring Unavailable Casandra, Parminder Primary Care Unavailable Casandra, Parminder Attending Unavailable Lizzeth, Albino Attending Unavailable Casandra, Parminder Primary Care Unavailable Lizzeth, Calvin Referring Unavailable Gopi, Roscoe Attending Unavailable Casandra, Parminder Primary Care Unavailable Casandra, Parminder Primary Care Unavailable Lizzeth, Calvin Attending Unavailable Casandra, Parminder Referring Unavailable Prah, Brian Attending Unavailable Casandra, Parminder Referring Unavailable Casandra, Parminder Primary Care Unavailable Casandra, Parminder Primary Care Unavailable Lizzeth, Albino Attending Unavailable Casandra, Parminder Referring Unavailable Prah, Brian Attending Unavailable Prah, Brian Referring Unavailable Casandra, Parminder Primary Care Unavailable Lizzeth, Calvin Referring Unavailable Lizzeth, Albino Attending Unavailable Casandra, Parminder Primary Care Unavailable Prah, Brian Attending Unavailable Casandra, Parminder Referring Unavailable Casandra, Parminder Primary Care Unavailable Ned, Stuart Hughes Referring Unavailable Prah, Brian Attending Unavailable Casandra, Parminder Primary Care Unavailable Ned , Dr. Stuart Hughes Referring Provider [phone] Dr. Steve Weathers DO Emergency Provider Dr. Jelani Dias DO Admit Provider [phone] Dr. Jelani Dias DO Attending Provider Allergies Allergy Classification Reported Allergen(s) Allergy Type Date of Onset Reaction(s) Facility (20 sources) Ciprofloxacin; Translations: [CIPROFLOXACIN] Drug Allergy 11-03-19 Vomiting [facility] (15 sources) Penicillins Allergy to substance 01-19-20 rash [facility] (15 sources) Sulfamethoxazole Drug Allergy 01-19-20 Nausea/Vom/[facility] (15 sources) Trimethoprim Drug Allergy 01-19-20 Nausea/Vom/[facility] (5 sources) Penicillin G; Translations: [PENICILLIN G] Drug Allergy 09-22-19 Rash [facility] (5 sources) Sulfamethoxazole / Trimethoprim; Translations: [SULFAMETHOXAZOLE-TR IMETHOPRIM] Drug Allergy 03-20-20 GI Upset [facility] (1 source) Ciprofloxacin Drug Allergy 01-12-20 [facility] (1 source) Penicillins Drug allergy (disorder) 01-12-20 [facility] (1 source) Sulfamethoxazole Drug Allergy 01-12-20 [facility] (1 source) Trimethoprim Drug Allergy 01-12-20 [facility] Medications Current Medications Medication Drug Class(es) Dates Sig (Normalized) Sig (Original) [id number] actuat albuterol 0.09 mg/actuat metered dose inhaler (20 sources) beta2-Adrenergic Agonist Start: 11-15-2024 Albuterol Sulfate 90 mcg/actuation HFA aerosol inhaler Active 2 NMA INHALATION EVERY 6 HOURS as needed for wheezing November 15, 2024 12:00am Start: 09-10-2022 End: 02-14-2023 Albuterol Sulfate 90 mcg/act uation HFA aerosol inhaler Discontinued 2 NMA INHALATION EVERY 4 HOURS NEEDED as needed for SHORT September 10, 2022 1:00am February 14, 2023 11:13am Start: 09-10-2022 End: 02-14-2023 take 1 puff(s) by inhalation every four hours as needed Albuterol Sulfate Discontinued 2 PUFF INHALATION EVERY 4 HOURS NEEDED September 10, 2022 1:00am February 14, 2023 11:13am Start: 09-10-2022 Albuterol Sulf ate Active 2 PUFF INHALATION September 10, 2022 12:00am Start: 04-22-2019 ALBUTEROL INHA LATION Inhale 1 Inhalation as instructed as needed. 04/22/2019 Active Start: 04-22-2019 ALBUTEROL INHA LATION Inhale 1 Inhalation as instructed as needed. 0 04/22/2019 Active Start: 04-22-2019 End: 04-28-2020 Albuterol Sulfate 1 INHALER inhaler Discontinued 1 - 2 NMA INHALATION EVERY 4 HOURS NEEDED as needed for Sob &/Or Wheezing April 22, 2019 12:00am April 28, 2020 7:46am Start: 04-22-2019 End: 04-28-2020 take 1 puff(s) by inhalation every four hours as needed Albuterol Sulfate Discontinued 1 - 2 PUFF INHALATION EVERY 4 HOURS NEEDED April 22, 2019 12:00am April 28, 2020 7:46am Comment on above: Inhale 1 Inhalation as instructed as needed. 120 actuat albuterol 0.1 mg/actuat / ipratropium bromide 0.02 mg/actuat inhalation spray (13 sources) Anticholinergic, beta2-Adrenergic Agonist Start: take 20-100 ug by inhalation twice daily Ipratropium-Albute rol (Combivent Respimat) 20-100 mcg/actuation mist Active 1 NMA INHALATION TWICE A DAY February 14, 2023 12:00am Start: 02-14-2023 take 20-100 ug by in halation four times daily as needed Ipratropium-Albuterol (Combivent Respimat) 20-100 mcg/actuation mist Active 1 NMA INHALATION .qid as needed February 14, 2023 12:00am Start: 02-14-2023 take 20-100 ug by in halation four times daily Ipratropium-Albuterol (Combivent Respimat) 20-100 mcg/actuation mist Active 1 PUFF INHALATION .qid February 14, 2023 12:00am take 20-100 ug by in halation every six hours as needed COMBIVENT RESPIMAT 20-100 mcg/actuation inhaler 1 Puff every 6 hours as needed for wheezing/shortness of breath. Active apixaban 5 mg oral tablet (20 sources) Factor Xa Inhibitor Start: 01-18-2022 take 1 tablet by mouth once daily Apixaban 5 mg tablet Active 5 mg PO DAILY January 18, 2022 11:25am Start: 03-25-2020 End: 01-18-2022 take 1 tablet by mouth twice daily Apixaban 5 mg tablet Discontinued 5 mg PO TWICE A DAY 60 2 January 14, 2022 8:31am January 18, 2022 11:25am Comment on above: Take 1 tablet by erendira th twice daily. Take 2 tablets twice daily till 03/31 and then take 1 tablet twice daily dextroamphetamine sulfate 10 mg oral tablet (20 sources) Central Nervous System Stimulant Start: take 2 tablets by mouth once daily Dextroamphetamine Sulfate 10 mg tablet Active 20 mg PO daily 0 November 15, 2024 4:41pm Start: 02-14-2023 End: 11-15-2024 take 2 tablets by mouth twice daily Dextroamphetamine Sulfate 10 mg tablet Discontinued 20 mg PO TWICE A DAY 0 February 14, 2023 11:15am November 15, 2024 4:42pm Start: 02-14-2023 take 20 mg by mouth twice daily Dextroamphetamine Sulfate Active 20 MG PO TWICE A DAY February 14, 2023 11:15am Start: 09-10-2021 End: 02-14-2023 take 1 tablet by mouth once daily Dextroamphetamine Sulfate 10 mg tablet Discontinued 10 mg PO DAILY 0 September 10, 2021 1:00am February 14, 2023 11:16am take 1 tablet by erendira th twice daily Dextroamphetamine Sulfate 10 mg tablet Take 10 mg by mouth two times a day. Active doxycycline hyclate 100 mg oral tablet (3 sources) Tetracycline-class Drug Start: 07-23-2024 End: 08-02-2024 take 1 tablet by mouth twice daily doxycycline (VIBRA-TABS) 100 mg tablet Indications: Pneumonia of both lower lobes due to infectious organism Take 1 tablet by mouth two times a day for 10 days. 20 tablet 07/23/2024 08/02/2024 Active Start: 08-28-2023 End: 09-04-2023 take 1 tablet by mouth twice daily doxycycline monohydrate 100 mg tablet Take 1 tablet by mouth two times a day for 7 days. 14 tablet 0 08/28/2023 09/04/2023 Active Comment on above: Take 1 tablet by erendira two times a day for 7 days. furosemide 20 mg oral tablet (20 sources) Loop Diuretic Start: 02-28-2025 take 1 tablet by mouth once daily as needed Furosemide 20 mg tablet Active 20 mg PO DAILY February 28, 2025 12:00am pt states takes prn Start: 11-15-2024 End: 02-28-2025 Furosemide (Lasix) 80 mg tab let Discontinued 20 mg PO daily November 15, 2024 4:41pm February 28, 2025 2:44pm Start: 04-30-2024 End: 11-15-2024 take 1 tablet by mouth every other day Furosemide (Lasix) 80 mg tablet Discontinued 80 mg PO every other day 90 3 April 30, 2024 12:00am November 15, 2024 4:42pm Start: 08-15-2023 End: 04-30-2024 Furosemide (Lasix) 40 mg tab let Discontinued 20 mg PO DAILY as needed for Edema August 15, 2023 11:45am April 30, 2024 10:01am Start: 05-08-2021 End: 08-15-2023 take 1 tablet by mouth once daily as needed for edema Furosemide (Lasix) 40 mg tablet Discontinued 40 mg PO DAILY as needed for Edema January 18, 2022 11:15am August 15, 2023 11:47am Start: 03-14-2020 End: 03-14-2020 take 1 tablet by mouth once daily Furosemide 40 mg tablet Discontinued 40 mg PO DAILY 30 March 14, 2020 6:06pm March 14, 2020 6:39pm Start: 11-02-2019 End: 07-06-2021 take 1 tablet by mouth once daily Furosemide 20 mg tablet Discontinued 20 mg PO DAILY July 06, 2021 1:00am July 06, 2021 5:33pm Comment on above: Take 1 tablet by erendira th once daily. For 3 days to decrease fluid. Repeat in one month imipramine hydrochloride 10 mg oral tablet (20 sources) Tricyclic Antidepressant Start: 10-05-19 20 take 1 tablet by mouth once daily at bedtime imipramine HCl (TOFRANIL) 10 mg tablet Take 1 tablet by mouth daily at bedtime. 20 tablet 10/05/2019 Active Start: 06-15-2019 End: 11-23-2019 take 1 tablet by mouth at bedtime Imipramine Hcl 25 MG tablet Discontinued 25 mg PO AT BEDTIME August 26, 2019 10:20am November 23, 2019 3:36pm Spasms Comment on above: Take 1 tablet by erendira th daily at bedtime. loperamide hydrochloride 2 mg oral capsule (4 sources) Opioid Agonist take 1 capsule by mouth every six hours as needed loperamide (IMODIUM) 2 mg cap(s) Take 2 mg by mouth four times daily as needed for Diarrhea. Active Comment on above: Take 2 mg by mouth f our times daily as needed for Diarrhea. nystatin [id number] unt/ml topical cream (20 sources) Polyene Antifungal Start: Nystatin 100,000 unit/gram cream Active 1 NMA TOPICAL ONCE 30 4 May 06, 2022 3:53pm Start: 05-06-2022 Nystatin Activ e 1 APPLIC TOPICAL ONCE May 06, 2022 3:53pm Start: 09-10-2021 End: 05-06-2022 Nystatin 100,000 unit/gram c ream Discontinued NMA TOPICAL September 10, 2021 1:00am May 06, 2022 3:54pm Start: 09-10-2021 End: 05-06-2022 Nystatin Discontinued G TOPI CHIP September 10, 2021 1:00am May 06, 2022 3:54pm ondansetron 4 mg oral tablet (20 sources) Serotonin-3 Receptor Antagonist Start: 09-10-2021 take 1 tablet by mouth once daily Ondansetron Hcl 4 mg tablet Active 4 mg PO DAILY September 10, 2021 1:00am Start: 05-23-2020 End: 07-06-2021 take 1 tablet by mouth twice daily as needed for nausea Ondansetron Hcl 4 mg tablet Discontinued 4 mg PO TWICE A DAY as needed for Nausea 30 0 January 29, 2021 2:58pm July 06, 2021 11:15am Start: 05-17-2019 End: 04-28-2020 take 1 tablet by mouth every eight hours as needed for nausea Ondansetron Hcl 8 MG tablet Discontinued 8 mg PO EVERY 8 HOURS NEEDED as needed for Nausea 30 10 2 July 26, 2019 10:01am April 28, 2020 7:56am Chemotherapy-induced nausea and vomiting Malignant neoplasm of urinary bladder Malignant neoplasm of bladder, unspecified Nausea with vomiting, unspecified Comment on above: Take 1 tablet by erendira th every afternoon. pantoprazole 40 mg delayed release oral tablet (20 sources) Proton Pump Inhibitor Start: take 1 tablet by mouth once daily Pantoprazole 40 mg tablet,delayed release (DR/EC) Active 40 mg PO DAILY January 18, 2022 12:00am Start: 04-28-2020 End: 07-06-2021 take 1 tablet by mouth once daily Pantoprazole 40 mg tablet,delayed release (DR/EC) Discontinued 40 mg PO DAILY April 28, 2020 12:00am July 06, 2021 11:15am Start: 02-14-2020 End: 04-28-2020 take 1 tablet by mouth once daily Pantoprazole 20 MG tablet Discontinued 20 mg PO DAILY February 14, 2020 12:00am April 28, 2020 7:56am Comment on above: Take 1 tablet by erendira th every afternoon. polysaccharide iron complex 150 mg oral capsule (20 sources) Start: 02-14-2023 Polysaccharide Iron Complex (Ferrex 150) 150 mg iron capsule Active 350 mg PO TWICE A DAY February 14, 2023 11:15am Anemia of chronic disease Anemia in other chronic diseases classified elsewhere Start: 11-21-2022 End: 02-14-2023 Polysaccharide Iron Complex (Ferrex 150) 150 mg iron capsule Discontinued 150 mg PO TWICE A DAY 180 3 November 21, 2022 3:41pm February 14, 2023 11:16am Anemia of chronic disease Anemia in other chronic diseases classified elsewhere Start: 03-25-2022 End: 11-21-2022 Polysaccharide Iron Complex (Ferrex 150) 150 mg iron capsule Discontinued 150 mg PO DAILY 90 0 March 25, 2022 2:53pm November 21, 2022 3:42pm Anemia of chronic disease Anemia in other chronic diseases classified elsewhere Start: 07-06-2021 End: 03-25-2022 Polysaccharide Iron Complex (Ferrex 150) 150 mg iron capsule Discontinued 150 mg PO TWICE A DAY July 06, 2021 11:15am March 25, 2022 2:54pm Start: 01-29-2021 End: 07-06-2021 Polysaccharide Iron Complex (Ferrex 150) 150 mg iron capsule Discontinued 150 mg PO DAILY 180 2 January 29, 2021 12:00am July 06, 2021 11:17am predniSONE 20 mg oral tablet (17 sources) Start: 07-23-2024 End: 07-28-2024 take 1 tablet by mouth twice daily predniSONE (DELTASONE) 20 mg tablet Indications: Pneumonia of both lower lobes due to infectious organism Take 1 tablet by mouth two times a day for 5 days. 10 tablet 07/23/2024 07/28/2024 Active Start: 01-18-2022 End: 08-28-2022 take 1 tablet by mouth once daily Prednisone 10 mg tablet Discontinued 10 mg PO DAILY January 18, 2022 12:00am August 28, 2022 4:26pm zolpidem tartrate 5 mg oral tablet (3 sources) gamma-Aminobutyric Acid-ergic Agonist Start: 10-08-2019 take 1 tablet by mouth at bedtime as needed zolpidem (AMBIEN) 5 mg tablet Indications: Primary insomnia Take 1 tablet by mouth at bedtime as needed for up to 5 days. for insomnia. 5 tablet 10/08/2019 Active Comment on above: Take 1 tablet by mouth at bedtime as nee ded for up to 5 days. for insomnia. Completed/Discontinued Medications Medication Drug Class(es) Dates Sig (Normalized) Sig (Original) acetaminophen 325 mg / oxyCODONE hydrochloride 5 mg oral tablet (20 sources) Opioid Agonist Start: 04-23-2019 End: 05-03-2019 Oxycodone-Acetamino phen 1 TABLET tablet Discontinued 1 {tbl} PO EVERY 4 HOURS NEEDED as needed for Pain April 23, 2019 May 03, 2019 11:09am Start: 04-23-2019 End: 05-03-2019 take 1 tablet by mouth every four hours as needed Oxycodone-Acetaminophen Discontinued 1 TABLET PO EVERY 4 HOURS NEEDED April 23, 2019 May 03, 2019 11:09am amphetamine aspartate 1.25 mg / amphetamine sulfate 1.25 mg / dextroamphetamine saccharate 1.25 mg / dextroamphetamine sulfate 1.25 mg oral tablet (17 sources) Central Nervous System Stimulant Start: 04-28-2020 End: 05-23-2020 Dextroamphetamine-Amphetamin e (Adderall) 5 mg tablet Discontinued 5 mg PO THREE TIMES A DAY April 28, 2020 12:00am May 23, 2020 12:37pm administer doses at least 4-6 hours apart End: 07-23-2024 take 1 tablet by mouth three times daily dextroamphetamine-amphetamine (ADDERALL) 5 mg tablet Take 5 mg by mouth three times daily. 07/23/2024 Discontinued (Course of therapy completed) Comment on above: Take 5 mg by mouth t hree times daily. atorvastatin 20 mg oral tablet (20 sources) HMG-CoA Reductase Inhibitor Start: 08-29-19 End: 02-15-20 take 1 tablet by mouth once daily Atorvastatin 20 mg tablet Discontinued 20 mg PO DAILY 90 3 September 11, 2022 5:27pm February 14, 2023 11:32am calcium carbonate 1250 mg chewable tablet (12 sources) Start: 09-26-19 End: 02-15-20 take 1 tablet by mouth twice daily Calcium Carbonate (Calcium 500) 500 mg calcium (1,250 mg) tablet,chewable Discontinued 500 mg PO TWICE A DAY 60 30 0 September 26, 2022 1:00am February 14, 2023 11:14am carvedilol 3.125 mg oral tablet (20 sources) alpha-Adrenergic Loida, beta-Adrenergic Loida Start: 08-29-19 End: 02-15-20 take 1 tablet by mouth twice daily at mealtime Carvedilol (Coreg) 3.125 mg tablet Discontinued 3.125 mg PO TWICE A DAY 60 12 November 20, 2022 4:05pm February 14, 2023 11:32am must administer with a meal/food cholecalciferol 0.325 mg oral capsule (20 sources) Vitamin D Start: 04-17-20 End: 11-16-19 take 1 capsule by mouth once daily Cholecalciferol (Vitamin D3) 325 mcg (13,000 unit) capsule Discontinued 1000 U PO DAILY February 14, 2023 11:14am November 15, 2024 4:42pm Start: 04-17-2022 End: 02-14-2023 take 1 capsule by mouth once daily Cholecalciferol (Vitamin D3) 325 mcg (13,000 unit) capsule Discontinued 325 ug PO DAILY April 17, 2022 12:00am February 14, 2023 11:16am Start: 04-17-2022 take 325 ug by mouth every week Cholecalciferol (Vitamin D3) Active 325 MCG PO EVERY WEEK April 16, 2022 11:00pm Comment on above: Take by mouth. clindamycin 300 mg oral capsule (15 sources) Lincosamide Antibacterial Start: 12-30-19 End: 07-06-20 take 1 capsule by mouth every six hours Clindamycin Hcl 300 mg capsule Discontinued 300 mg PO EVERY 6 HOURS December 29, 2020 12:00am July 06, 2021 11:14am folic acid 1 mg oral tablet (19 sources) Start: 03-26-20 End: 05-23-20 take 1 tablet by mouth once daily Folic Acid 1 mg tablet Discontinued 1 mg PO DAILY April 28, 2020 12:00am May 23, 2020 12:37pm Comment on above: Take 1 tablet by erendira th once daily. lidocaine 25 mg/ml / prilocaine 25 mg/ml topical cream (20 sources) Antiarrhythmic, Amide Local Anesthetic Start: 09-04-19 End: 11-16-19 Lidocaine-Prilocaine 2.5-2.5 % cream Discontinued 1 NMA TOPICAL ONCE as needed for port access January 21, 2022 10:21am November 15, 2024 4:42pm Port-A-Cath in place Presence of other vascular implants and grafts Start: 09-04-2021 End: 01-21-2022 Lidocaine-Prilocaine Active 1 APPLIC TOPICAL ONCE January 21, 2022 10:21am Start: 05-05-2019 End: 08-26-2019 Lidocaine-Prilocaine 30 GM c ream Discontinued 1 APPLICATIO TP DAILY NEEDED as needed for Not Specified May 05, 2019 11:34am August 26, 2019 10:20am Malignant neoplasm of urinary bladder Malignant neoplasm of bladder, unspecified Start: 05-05-2019 End: 08-26-2019 Lidocaine-Prilocaine Discont inued 1 APPLICATIO TP DAILY NEEDED 09 02May 05, 2019 11:34am August 26, 2019 10:20am lisinopril 5 mg oral tablet (20 sources) Angiotensin Converting Enzyme Inhibitor Start: 04-28-2020 End: 01-22-2021 take 2.5 mg by mouth once daily Lisinopril 5 mg tablet Discontinued 2.5 mg PO DAILY April 28, 2020 12:00am January 22, 2021 5:56pm Start: 04-28-2020 End: 01-22-2021 take 2.5 mg by mouth once daily Lisinopril Discontinue d 2.5 MG PO DAILY April 28, 2020 12:00am January 22, 2021 5:56pm Start: 03-14-2020 End: 04-28-2020 take 1 tablet by mouth once daily Lisinopril 2.5 mg tablet Discontinued 2.5 mg PO DAILY March 14, 2020 12:00am April 28, 2020 7:47am Start: 01-28-2020 End: 03-14-2020 take 2.5 mg by mouth once daily Lisinopril 5 mg tablet Discontinued 2.5 mg PO DAILY January 28, 2020 11:56am March 14, 2020 8:59am Start: 01-28-2020 End: 03-14-2020 take 2.5 mg by mouth once daily Lisinopril Discontinue d 2.5 MG PO DAILY January 28, 2020 11:56am March 14, 2020 8:59am Start: 12-29-2019 End: 01-28-2020 take 1 tablet by mouth once daily Lisinopril 5 MG tablet Discontinued 5 mg PO DAILY December 29, 2019 12:00am January 28, 2020 11:57am magnesium oxide 400 mg oral capsule (20 sources) Start: 04-30-2024 End: 02-28-2025 take 1 capsule by mouth once daily Magnesium Oxide 400 mg magnesium capsule Discontinued 400 mg PO DAILY 90 2 April 30, 2024 12:00am February 28, 2025 2:52pm Start: 09-26-2022 End: 08-15-2023 take 1 tablet by mouth once daily Magnesium Oxide 400 mg magnesium tablet Discontinued 400 mg PO DAILY 30 30 0 September 26, 2022 1:00am August 15, 2023 11:46am Start: 12-29-2019 End: 04-28-2020 take 1 tablet by mouth twice daily Magnesium Oxide 400 MG tablet Discontinued 400 mg PO TWICE A DAY December 29, 2019 12:00am April 28, 2020 7:57am melatonin 3 mg oral capsule (20 sources) Start: 04-28-2020 End: 07-06-2021 take 1 capsule by mouth at bedtime Melatonin 3 mg capsule Discontinued 3 mg PO BEDTIME April 28, 2020 12:00am July 06, 2021 11:15am Start: 03-25-2020 take 1 tablet by erendira th every twenty-four hours as needed melatonin 3 mg tablet Take 1 tablet by mouth at bedtime as needed (insomnia). 30 tablet 03/25/2020 Active Start: 01-07-2020 End: 04-28-2020 take 1 tablet by mouth once daily Melatonin 1 MG table t Discontinued 1 mg PO DAILY January 07, 2020 12:00am April 28, 2020 7:45am Comment on above: Take 1 tablet by erendira th at bedtime as needed (insomnia). mirtazapine 30 mg oral tablet (19 sources) Start: 0 End: take 1 tablet by mouth at bedtime Mirtazapine 30 mg tablet Discontinued 30 mg PO AT BEDTIME April 28, 2020 12:00am May 23, 2020 12:37pm Start: 03-25-2020 take 1 tablet by erendira th once daily at bedtime mirtazapine (REMERON) 15 mg tablet Take 1 tablet by mouth daily at bedtime. 30 tablet 03/25/2020 Active Comment on above: Take 1 tablet by erendira th daily at bedtime. morphine sulfate 30 mg extended release oral tablet (20 sources) Opioid Agonist Start: 06-15-2019 End: 08-09-2019 take 1 tablet by mouth every eight hours Morphine 30 MG tablet extended release Discontinued 30 mg PO Q8H 30 10 0 July 27, 2019 August 09, 2019 4:53pm Pain Transitional cell carcinoma of bladder Pain, unspecified Malignant neoplasm of bladder, unspecified Start: 05-18-2019 End: 08-26-2019 take 1 tablet by mouth every twelve hours Morphine 30 MG tablet extended release Discontinued 30 mg PO Q12H 60 0 May 18, 2019 August 26, 2019 10:20am Pain Pain, unspecified phenazopyridine hydrochloride 100 mg oral tablet (15 sources) Start: 05-19-2019 End: 06-15-2019 take 1 tablet by mouth three times daily Phenazopyridine 100 MG tablet Discontinued 100 mg PO THREE TIMES A DAY 90 0 May 19, 2019 12:00am June 15, 2019 10:24am potassium chloride 1.33 meq/ml oral solution (20 sources) Start: 02-14-2020 End: 03-14-2020 take 20 mEq by mouth twice daily Potassium Chloride 20 MEQ/15 ML liquid Discontinued 20 meq PO TWICE A DAY 60 30 0 February 14, 2020 12:00am March 14, 2020 12:00am March 14, 2020 6:09pm Start: 01-28-2020 End: 04-28-2020 take 2 tablets by mouth three times daily Potassium Chloride 20 mEq tablet extended release Discontinued 40 meq PO THREE TIMES A DAY 90 0 January 28, 2020 12:00am April 28, 2020 7:59am Start: 01-28-2020 End: 04-28-2020 take 40 mEq by mouth three times daily Potassium Chloride Discontinued 40 MEQ PO THREE TIMES A DAY 90 January 28, 2020 12:00am April 28, 2020 7:59am prochlorperazine 10 mg oral tablet (20 sources) Phenothiazine Start: 05-17-2019 End: 04-28-2020 take 1 tablet by mouth every six hours as needed for nausea Prochlorperazine Maleate 10 MG tablet Discontinued 10 mg PO EVERY 6 HOURS NEEDED as needed for Nausea 30 10 2 July 26, 2019 10:01am April 28, 2020 7:46am Chemotherapy-induced nausea and vomiting Malignant neoplasm of urinary bladder Nausea with vomiting, unspecified Malignant neoplasm of bladder, unspecified spironolactone 25 mg oral tablet (20 sources) Aldosterone Antagonist Start: 04-28-2020 End: 04-28-2020 take 1 tablet by mouth twice daily Spironolactone 25 mg tablet Discontinued 25 mg PO TWICE A DAY April 28, 2020 7:45am April 28, 2020 10:34am Start: 12-29-2019 End: 01-22-2021 take 1 tablet by mouth once daily Spironolactone 25 mg tablet Discontinued 25 mg PO DAILY April 28, 2020 10:33am January 22, 2021 5:56pm Comment on above: Take 25 mg by mouth twice daily. traMADol hydrochloride 50 mg oral tablet (19 sources) Opioid Agonist Start: 0 End: 3 take 1-10 tablets by mouth twice daily as needed for pain Tramadol 50 MG tablet Discontinued 50 mg PO TWICE DAILY NEEDED as needed for Pain 1-10 Or Fever November 23, 2019 12:00am June 04, 2023 1:33pm take 1 tablet by erendira th once daily at bedtime traMADol (ULTRAM) 50 mg tablet Take 50 m g by mouth daily at bedtime. Active Comment on above: Take 50 mg by mouth daily at bedtime. traZODone hydrochloride 50 mg oral tablet (20 sources) Serotonin Reuptake Inhibitor Start: 0 End: 3 take 1 tablet by mouth at bedtime Trazodone 50 MG tablet Discontinued 50 mg PO AT BEDTIME May 31, 2020 12:00am June 04, 2023 1:33pm sleep Start: 01-07-2020 End: 04-28-2020 take 1 tablet by mouth at bedtime Trazodone 50 MG tablet Discontinued 50 mg PO AT BEDTIME January 07, 2020 12:00am April 28, 2020 7:45am Problems Active Problems Problem Classification Problem Date Documented Da te Episodic/Chronic Acute and unspecified renal failure (15 sources) Uremia; Translations: [Unspecified kidney failure] 07-05-2021 Chronic Acute and unspecified renal failure (15 sources) Injury of kidney; Translations: [Acute kidney failure, unspecified] 07-05-2021 Episodic Administrative/social admission (20 sources) Patient encounter status; Translations: [Counseling, unspecified] Episodic Cancer of bladder (20 sources) Malignant tumor of urinary bladder; Translations: [Malignant neoplasm of bladder, unspecified] Onset: 10-13-2019 Chronic Comment on above: Bladder cancer-uroth elial type, Localized disease, stage IIIA(cT3 N1 M0).S/P Neoadjuvant chemotherapy with Carboplatin and Gemzar.S/P cystectomy, pelvic node dissection and ileal conduit. Pathologic staging pT4a pN1, Margins positive.CT a/p on 08/12/2022 show no evidence of disease.On observation.Comes for follow up.No evidence of disease clinically. Bladder cancer-uroth elial type, Localized disease, stage IIIA(cT3 N1 M0).S/P Neoadjuvant chemotherapy with Carboplatin and Gemzar.S/P cystectomy, pelvic node dissection and ileal conduit. Pathologic staging pT4a pN1, Margins positive.CT a/p on 08/12/2022 show no evidence of disease.On observation.Comes for follow up.Has decrease in functional status R/O metastatic disease. Bladder cancer-uroth elial type, Localized disease, stage IIIA(cT3 N1 M0).S/P Neoadjuvant chemotherapy with Carboplatin and Gemzar.S/P cystectomy, pelvic node dissection and ileal conduit. Pathologic staging pT4a pN1, Margins positive.CT a/p on 08/12/2022 show no evidence of disease.On observation.Comes for follow up.CT on 11/25/2024 showed no evidence of Metastatic disease. Cancer of bladder (15 sources) History of bladder neoplasm; Translations: [Personal history of malignant neoplasm of bladder] 04-17-2022 Episodic Chronic kidney disease (20 sources) Chronic renal insufficiency; Translations: [Chronic kidney disease, unspecified] Onset: 11-15-2024 09-26-2022 Chronic Comment on above: Cr 3.1 today. Cr 2.29 on 11/12/2024 . Cr 2.77 today. Stage 4 renal disease Conditions associated with dizziness or vertigo (20 sources) Dizziness; Translations: [Dizziness and giddiness] Episodic Comment on above: MRI 05/01/2022 shows chronic atrophy and ischemic changes, no metastatic disease. Conduction disorders (16 sources) Right bundle branch block AND left posterior fascicular block; Translations: [Bifascicular block] 04-28-2020 Chronic Congestive heart failure; nonhypertensive (16 sources) Chronic systolic heart failure; Translations: [Chronic systolic (congestive) heart failure] Onset: 11-12-2024 02-14-2020 Chronic Deficiency and other anemia (20 sources) Anemia of chronic disease; Translations: [Anemia in other chronic diseases classified elsewhere] 08-15-2022 Chronic Comment on above: Associated with CKD. Iron level is 39 today. Associated with CKD. Associated with CKD. Has stage 4 renal disease. Deficiency and other anemia (11 sources) Anemia in other chronic diseases classified elsewhere; Translations: [Anemia of other chronic disease] Onset: 02-17-2025 Chronic Deficiency and other anemia (14 sources) Iron deficiency anemia; Translations: [Iron deficiency anemia, unspecified] 08-15-2022 Episodic Comment on above: On Oral Iron 1 cap d aily. Hgb is 10. Deficiency and other anemia (7 sources) Iron deficiency anemia, unspecified; Translations: [Iron deficiency anemia, unspecified] Onset: 02-17-2025 08-15-2022 Episodic Deficiency and other anemia (1 source) Anemia, unspecified; Translations: [Anemia, unspecified] Onset: 02-17-2025 Episodic Deficiency and other anemia (2 sources) Anemia Episodic Deficiency and other anemia (2 sources) Deficiency and other anemia Fluid and electrolyte disorders (20 sources) Hypokalemia; Translations: [Hypokalemia] Episodic Headache; including migraine (15 sources) Headache; Translations: [Headache] 11-15-2024 Episodic Comment on above: R/O brain metastases . MRI on 12/29/2024 jacqui wed no mets, old cerebellar infarct, chronic vascular changes. Headache; including migraine (1 source) Headache; including migraine; Translations: [Headache, unspecified] Onset: 02-17-2025 Heart valve disorders (2 sources) Nonrheumatic mitral (valve) insufficiency; Translations: [Nonrheumatic mitral (valve) insufficiency] Onset: 05-17-2024 Chronic Malaise and fatigue (20 sources) Fatigue; Translations: [Other fatigue] 04-17-2022 Episodic Nausea and vomiting (20 sources) Nausea and vomiting; Translations: [Nausea with vomiting, unspecified] 07-05-2021 Episodic Osteoarthritis (17 sources) Osteoarthritis of joint of left shoulder region; Translations: [Primary osteoarthritis, left shoulder] 09-10-2022 Chronic Other circulatory disease (15 sources) Device in situ; Translations: [Presence of other vascular implants and grafts] 09-04-2021 Chronic Other circulatory disease (15 sources) Low blood pressure; Translations: [Hypotension, unspecified] 07-05-2021 Episodic Other diseases of kidney and ureters (15 sources) Hydronephrosis; Translations: [Unspecified hydronephrosis] 04-28-2020 Episodic Other ear and sense organ disorders (6 sources) Tinnitus; Translations: [Tinnitus, unspecified ear] 01-11-2025 Episodic Other ear and sense organ disorders (1 source) Tinnitus, bilateral; Translations: [Tinnitus, bilateral] Onset: 02-17-2025 Episodic Other gastrointestinal disorders (15 sources) Diarrhea; Translations: [Diarrhea, unspecified] 07-05-2021 Episodic Other inflammatory condition of skin (15 sources) Psoriasis; Translations: [Psoriasis, unspecified] 01-18-2022 Chronic Other lower respiratory disease (12 sources) Dyspnea; Translations: [Dyspnea, unspecified] 09-26-2022 Episodic Other lower respiratory disease (1 source) Cough; Translations: [Acute cough] 07-23-2024 Episodic Other non-traumatic joint disorders (13 sources) Shoulder pain; Translations: [Pain in unspecified shoulder] 09-10-2022 Episodic Other nutritional; endocrine; and metabolic disorders (12 sources) Hypomagnesemia; Translations: [Hypomagnesemia] 09-26-2022 Chronic Other nutritional; endocrine; and metabolic disorders (12 sources) Hypocalcemia; Translations: [Hypocalcemia] 09-26-2022 Chronic Other nutritional; endocrine; and metabolic disorders (4 sources) Obese class II; Translations: [Obesity, unspecified] Onset: 10-14-2019 10-14-2019 Chronic Other nutritional; endocrine; and metabolic disorders (2 sources) Adult failure to thrive syndrome; Translations: [Adult failure to thrive] 02-28-2025 Episodic Sara-; endo-; and myocarditis; cardiomyopathy (except that caused by tuberculosis or sexually transmitted disease) (20 sources) Cardiomyopathy; Translations: [Other cardiomyopathies] Onset: 11-12-2024 Chronic Pneumonia (except that caused by tuberculosis or sexually transmitted disease) (1 source) Bilateral pneumonia; Translations: [Pneumonia, unspecified organism] 07-23-2024 Episodic Residual codes; unclassified (15 sources) Edema; Translations: [Edema, unspecified] 05-08-2021 Episodic Residual codes; unclassified (1 source) Unable to perform personal care activity; Translations: [Other specified health status] 07-23-2024 Episodic Spondylosis; intervertebral disc disorders; other back problems (13 sources) Neck pain; Translations: [Cervicalgia] 09-10-2022 Episodic Urinary tract infections (15 sources) Urinary tract infectious disease; Translations: [Urinary tract infection, site not specified] 07-05-2021 Episodic Past or Other Problems Problem Classification Problem Date Documented Da te Episodic/Chronic Other skin disorders (15 sources) Abdominal mass; Translations: [Localized swelling, mass and lump, trunk] Onset: 03-20-2020 04-28-2020 Episodic Phlebitis; thrombophlebitis and thromboembolism (15 sources) Deep venous thrombosis of lower extremity; Translations: [Acute embolism and thrombosis of unspecified deep veins of right lower extremity] Onset: 03-20-2020 08-21-2020 Episodic Comment on above: DVT in the distal ri ght external iliac and common femoral veins. The thrombus is nonocclusive. 03/20/2020 Skin and subcutaneous tissue infections (3 sources) Abscess of abdominal wall; Translations: [Cutaneous abscess of abdominal wall] Onset: 03-21-2020 Resolved: 03-25-2020 03-25-2020 Episodic Results Test Name Value Interpretation Reference Range Facility Absolute lymphocyte countOrd ered By: Steve Weathers on 02-28-2025 Lymphocytes Auto (Unsp spec) [#/Vol] 1.20 10*3/uL 0.83-4.51 [facility] Absolute lymphocyte countOrd ered By: Brian Stone on 02-28-2025 Lymphocytes Auto (Unsp spec) [#/Vol] 1.05 10*3/uL 0.83-4.51 [facility] Absolute neutrophil countOrd ered By: Steve Weathers on 02-28-2025 Neutrophils (Bld) [#/Vol] 8.6 10*3/uL High 2.0-7.7 [facility] Absolute neutrophil countOrd ered By: Brian Stone on 07-28-2025 Neutrophils (Bld) [#/Vol] 8.0 10*3/uL High 2.0-7.7 [facility] Activated partial thrombopla stin time (aPTT) in platelet poor plasma by coagulation aOrdered By: Steve Weathers on 02-28-2025 aPTT Coag (PPP) [Time] 34.8 s 24.1-36.2 [facility] Anion gap in Serum or Plasma Ordered By: Steve Weathers on 02-28-2025 Anion gap [Moles/Vol] 15 mmol/L - [facility] Comment on above: Previous reported re sult: 15 Edited by: AUSTIN on 02/28/25:1555 AMENDED REPORT 02/28/25 1550 GAP previously reported as: 15 Anion gap in Serum or Plasma Ordered By: Brian Stone on 02-28-2025 Anion gap [Moles/Vol] 14 mmol/L 12-16 [facility] Automated lymphocyte count a s percentage of total leukocytesOrdered By: Steve Weathers on 02-28-2025 Lymphocytes/100 WBC Auto (Unsp spec) 11.5 % Low [facility] Automated lymphocyte count a s percentage of total leukocytesOrdered By: Brian Stone on 02-28-2025 Lymphocytes/100 WBC Auto (Unsp spec) 10.7 % Low - [facility] BUN/creatinine ratioOrdered By: Steve Weathers on 02-28-2025 Urea nitrogen/Creatinine [Mass ratio] 13.4 mg/mg 05-23 [facility] BUN/creatinine ratioOrdered By: Brian Stone on 02-28-2025 Urea nitrogen/Creatinine [Mass ratio] 13.0 mg/mg 05-23 [facility] Basophil percentageOrdered B y: Steve Weathers on 02-28-2025 Basophils/100 WBC (Bld) 0.1 % 0-1 [facility] Basophil percentageOrdered B y: Brian Stone on 02-28-2025 Basophils/100 WBC (Bld) 0.3 % 0-1 [facility] Bilirubin, totalOrdered By: Brian Stone on 02-28-2025 Bilirubin [Mass/Vol] 0.48 mg/dL 0.00-1.30 [facility] Carbon dioxide, total [Moles /volume] in Central venous bloodOrdered By: Steve Weathers on 02-28-2025 CO2 [Moles/Vol] 7.9 mmol/L Low 21.0-32.0 [facility] Comment on above: Critical Result(s) Lupe ADAMSG at:1546 by: JAEL Results read back by same. Critical Result(s) Called ZARMSTRONG at:1546 by: JAEL Results read back by same.Critical Result(s) Called at: by: Results read back by same.Previous reported result: 7.9 mmol/LEdited by: AUTOINS on 02/28/25:1555 AMENDED REPORT 02/28/25 1555 CO2 previously reported as: 7.9 *L mmol/L Critical Result(s) Called OSEISTRONG at:1546 by: JAEL Results read back by same. Carbon dioxide, total [Moles /volume] in Central venous bloodOrdered By: Brian Stone on 02-28-2025 CO2 [Moles/Vol] 7.0 mmol/L Low 21.0-32.0 [facility] Comment on above: Critical Result(s) Lupe rossi at 1300: by: BRIDGETTE WILSON TO BILL. Results read back by same. Critical Result(s) Called at 1300: by: BRIDGETTE WILSON TO BILL. Results read back by same.Critical Result(s) Called at 1300: by: BRIDGETTE WILSON TO BILL. Results read back by same.Critical Result(s) Called at: by: Results read back by same.Previous reported result: 7.0 mmol/LEdited by: AUTOINS on 02/28/25:1319 AMENDED REPORT 02/28/25 1319 CO2 previously reported as: 7.0 *L mmol/L Critical Result(s) Called at 1300: by: BRIDEGTTE WILSON TO BILL. Results read back by same.Previous reported result: 7.0 mmol/LEdited by: SLOZANO on 02/28/25:1320 AMENDED REPORT 02/28/25 1320 CO2 previously reported as: 7.0 *L mmol/L Critical Result(s) Called at 1300: by: BRIDGETTE WILSON TO BBAKSI. Results read back by same. Critical Result(s) Called at 1300: by: BRIDGETTE WILSON TO BBAKSI. Results read back by same.Critical Result(s) Called at 1300: by: BRIDGETTE WILSON TO BBAKSI. Results read back by same.Critical Result(s) Called at: by: Results read back by same. Chloride assayOrdered By: Duane Weathers on 02-28-2025 Chloride [Moles/Vol] 114 mmol/L High 98-108 [facility] Chloride assayOrdered By: Yeni Stone on 02-28-2025 Chloride [Moles/Vol] 114 mmol/L High 98-108 [facility] Eosinophil percentageOrdered By: Steve Weathers on 02-28-2025 Eosinophils/100 WBC (Bld) 0.2 % 0-5 [facility] Eosinophil percentageOrdered By: Brian Stone on 02-28-2025 Eosinophils/100 WBC (Bld) 0.3 % 0-5 [facility] Erythrocyte distribution wid th ratioOrdered By: Steve Weathers on 02-28-2025 Erythrocyte distribution width (RBC) [Ratio] 17.3 % High 11.6-14.6 [facility] Erythrocyte distribution wid th ratioOrdered By: Brian Stone on 02-28-2025 Erythrocyte distribution width (RBC) [Ratio] 17.3 % High 11.6-14.6 [facility] Erythrocyte distribution wid th standard deviationOrdered By: Steve Weathers on 02-28-2025 Erythrocyte distribution width (RBC) [Ratio] 59.8 fl High 35.1-43.9 [facility] Erythrocyte distribution wid th standard deviationOrdered By: Brian Stone on 02-28-2025 Erythrocyte distribution width (RBC) [Ratio] 59.2 fl High 35.1-43.9 [facility] Glomerular filtration rate ( GFR) estimation/1.73 sq m using serum, plasma, or whole bOrdered By: Steve Weathers on 02-28-2025 GFR/1.73 sq M.predicted among non-blacks MDRD (S/P/Bld) [Vol rate/Area] 18 mL/min/{1.73_m2} Low >60 [facility] Comment on above: mL/min/1.73m2 CKD-EP I Creatinine Equation (2020) Glomerular filtration rate ( GFR) estimation/1.73 sq m using serum, plasma, or whole bOrdered By: Brian Stone on 02-28-2025 GFR/1.73 sq M.predicted among non-blacks MDRD (S/P/Bld) [Vol rate/Area] 17 mL/min/{1.73_m2} Low >60 [facility] Comment on above: mL/min/1.73m2 CKD-EP I Creatinine Equation (2020) Hematocrit Auto (Bld) [Volum e fraction]Ordered By: Steve Weathers on 02-28-2025 Hematocrit (Bld) [Volume fraction] 21.8 % Low 37-47 [facility] Hematocrit Auto (Bld) [Volum e fraction]Ordered By: Brian Stone on 02-28-2025 Hematocrit (Bld) [Volume fraction] 23.0 % Low 37-47 [facility] Hemoglobin measurementOrdere d By: Steve Weathers on 02-28-2025 Hemoglobin (Bld) [Mass/Vol] 7.0 g/dL Low 12.0-15.0 [facility] Hemoglobin measurementOrdere d By: Brian Stone on 02-28-2025 Hemoglobin (Bld) [Mass/Vol] 7.3 g/dL Low 12.0-15.0 [facility] Immature granulocytes/100 WB C Auto (Bld)Ordered By: Steve Weathers on 02-28-2025 Immature granulocytes/100 WBC (Bld) 0.600 % 0.0-0.9 [facility] Comment on above: IG% - Immature Granu locytes (promyelocytes, myelocytes and metamyelocytes) > 1% indicates that a LEFT SHIFT is Present. Immature granulocytes/100 WB C Auto (Bld)Ordered By: Brian Stone on 02-28-2025 Immature granulocytes/100 WBC (Bld) 0.500 % 0.0-0.9 [facility] Comment on above: IG% - Immature Granu locytes (promyelocytes, myelocytes and metamyelocytes) > 1% indicates that a LEFT SHIFT is Present. International normalized rat io (INR) calculationOrdered By: Steve Weathers on 02-28-2025 INR Coag (Bld) [Relative time] 2.4 {INR} [facility] Iron measurement (mass/mass) Ordered By: Brian Stone on 02-28-2025 Iron (Unsp spec) [Mass/Mass] 23 ug/dL Low 50-170 [facility] Laboratory - Chemistry and C hemistry - challengeOrdered By: Brian Stone on 02-28-2025 AST [Catalytic activity/Vol] 14 U/L <32 [facility] Lactate dehydrogenase (LDH) measurementOrdered By: Brian Stone on 02-28-2025 LDH [Catalytic activity/Vol] 161 U/L 84-246 [facility] Lactic acid measurementOrder ed By: Steve Weathers on 02-28-2025 Lactate [Moles/Vol] mmol/L 0.0-2.0 [facility] MCV (mean corpuscular volume ) determinationOrdered By: Steve Weathers on 02-28-2025 MCV (RBC) [Entitic vol] 94.4 fL 81-99 [facility] MCV (mean corpuscular volume ) determinationOrdered By: Brian Stone on 02-28-2025 MCV (RBC) [Entitic vol] 94.3 fL 81-99 [facility] Magnesium measurement (mass/ volume)Ordered By: Steve Weathers on 02-28-2025 Magnesium (Unsp spec) [Mass/Vol] 1.3 mg/dL Low 1.5-2.2 [facility] Mean corpuscular hemoglobin (MCH) determinationOrdered By: Steve Weathers on 02-28-2025 MCH (RBC) [Entitic mass] 30.3 pg 27.0-32.0 [facility] Mean corpuscular hemoglobin (MCH) determinationOrdered By: Brian Stone on 02-28-2025 MCH (RBC) [Entitic mass] 29.9 pg 27.0-32.0 [facility] Mean corpuscular hemoglobin concentration (MCHC) determinationOrdered By: Steve Weathers on 02-28-2025 MCHC (RBC) [Mass/Vol] 32.1 g/dL 32-36 [facility] Mean corpuscular hemoglobin concentration (MCHC) determinationOrdered By: Brian Stone on 02-28-2025 MCHC (RBC) [Mass/Vol] 31.7 g/dL Low 32-36 [facility] Mean platelet volume determi nationOrdered By: Steve Weathers on 02-28-2025 Platelet mean volume (Bld) [Entitic vol] 11.8 fL 6.2-12.0 [facility] Mean platelet volume determi nationOrdered By: Brian Stone on 02-28-2025 Platelet mean volume (Bld) [Entitic vol] 11.9 fL 6.2-12.0 [facility] Monocyte percentageOrdered B y: Steve Weathers on 02-28-2025 Monocytes/100 WBC (Bld) 6.1 % 0-10 [facility] Monocyte percentageOrdered B y: Brian Stone on 02-28-2025 Monocytes/100 WBC (Bld) 6.3 % 0-10 [facility] Neutrophil percentageOrdered By: Steve Weathers on 02-28-2025 Neutrophils/100 WBC (Bld) 81.5 % High 47-70 [facility] Neutrophil percentageOrdered By: Brian Stone on 02-28-2025 Neutrophils/100 WBC (Bld) 81.9 % High 47-70 [facility] No Panel InformationOrdered By: Brian Stone on 02-28-2025 Unsaturated Iron Binding Capacity 32 ug/dL Low 228-428 [facility] Nucleated red blood cell per centageOrdered By: Steve Weathers on 02-28-2025 Nucleated RBC/100 WBC (Bld) [Ratio] 0 % 0-5 [facility] Nucleated red blood cell per centageOrdered By: Brian Stone on 02-28-2025 Nucleated RBC/100 WBC (Bld) [Ratio] 0 % 0-5 [facility] Platelet countOrdered By: Duane Weathers on 02-28-2025 Platelets (Bld) [#/Vol] 175 10*3/uL 150-450 [facility] Platelet countOrdered By: Yeni Stone on 02-28-2025 Platelets (Bld) [#/Vol] 178 10*3/uL 150-450 [facility] Potassium measurement (mass/ volume)Ordered By: Steve Weathers on 02-28-2025 Potassium (Unsp spec) [Mass/Vol] 2.7 mmol/L Low 3.3-5.1 [facility] Comment on above: Critical Result(s) C alled at: by: Results read back by same. Critical Result(s) Called ZARMSTRONG at: 1546 by: BWORKMAN Results read back by same. Critical Result(s) Called ZARMSTRONG at: 1546 by: BWORKMAN Results read back by same.Critical Result(s) Called at: by: Results read back by same.Critical Result(s) Called at: by: Results read back by same.Previous reported result: 2.7 mmol/LEdited by: AUTOINS on 02/28/25:1546 AMENDED REPORT 02/28/25 1546 K previously reported as: 2.7 *L mmol/L Critical Result(s) Called at: by: Results read back by same.Previous reported result: 2.7 mmol/LEdited by: AUTOINS on 02/28/25:1555 AMENDED REPORT 02/28/25 1555 K previously reported as: 2.7 *L mmol/L Critical Result(s) Called at: by: Results read back by same. Critical Result(s) Called ZARMSTRONG at: 1546 by: BWORKMAN Results read back by same. Potassium measurement (mass/ volume)Ordered By: Brian Stone on 02-28-2025 Potassium ([facility] spec) [Mass/Vol] 2.6 mmol/L Low 3.3-5.1 [facility] Comment on above: Critical Result(s) C alled at 1300: by: BRIDGETTE KHAN. Results read back by same. Previous reported result: 2.6 mmol/LEdited by: AUTOINS on 02/28/25:1319 AMENDED REPORT 02/28/25 1319 K previously reported as: 2.6 *L mmol/L Critical Result(s) Called at 1300: by: BRIDGETTE KHAN. Results read back by same.Previous reported result: 2.6 mmol/LEdited by: DANISHA on 02/28/25:1320 AMENDED REPORT 02/28/25 1320 K previously reported as: 2.6 *L mmol/L Critical Result(s) Called at 1300: by: BRIDGETTE WILSON TO BBAKSI. Results read back by same. Critical Result(s) Called at 1300: by: BRIDGETTE WILSON TO BBAKSI. Results read back by same.Critical Result(s) Called at: by: Results read back by same.Critical Result(s) Called at: by: Results read back by same. Prothrombin timeOrdered By: Steve Weathers on 02-28-2025 PT Coag (PPP) [Time] 26.9 s High 11.7-14.9 [facility] RBC Auto (Bld) [#/Vol]Ordere d By: Steve Weathers on 02-28-2025 RBC (Bld) [#/Vol] 2.31 10*6/uL Low 4.2-5.4 [facility] RBC Auto (Bld) [#/Vol]Ordere d By: Brian Stone on 02-28-2025 RBC (Bld) [#/Vol] 2.44 10*6/uL Low 4.2-5.4 [facility] Serum creatinine measurement (mass/volume)Ordered By: Steve Weathers on 02-28-2025 Creatinine [Mass/Vol] 2.74 mg/dL High 0.70-1.20 [facility] Serum creatinine measurement (mass/volume)Ordered By: Brian Stone on 02-28-2025 Creatinine [Mass/Vol] 2.77 mg/dL High 0.70-1.20 [facility] Serum globulin measurementOr dered By: Brian Stone on 02-28-2025 Globulin (S) [Mass/Vol] 3.4 g/dL 2.2-4.2 [facility] Serum glucose measurement (m ass/volume)Ordered By: Steve Weathers on 02-28-2025 Glucose [Mass/Vol] 96 mg/dL 70-99 [facility] Serum glucose measurement (m ass/volume)Ordered By: Brian Stone on 02-28-2025 Glucose [Mass/Vol] 98 mg/dL 70-99 [facility] Serum or plasma alanine العراقي otransferase (ALT) measurementOrdered By: Brian Stone on 02-28-2025 ALT [Catalytic activity/Vol] 8 U/L <35 [facility] Serum or plasma albumin chito urement (mass/volume)Ordered By: Brian Stone on 02-28-2025 Albumin [Mass/Vol] 2.4 g/dL Low 3.4-4.8 [facility] Serum or plasma albumin/glob ulin mass ratioOrdered By: Brian Stone on 02-28-2025 Albumin/Globulin [Mass ratio] 0.7 {ratio} Low 0.9-2.4 [facility] Serum or plasma alkaline mariusz sphatase measurementOrdered By: Brian Stone on 02-28-2025 ALP [Catalytic activity/Vol] 112 U/L High 35-104 [facility] Serum or plasma calcium chito urement (mass/volume)Ordered By: Steve Weathers on 02-28-2025 Calcium [Mass/Vol] 6.7 mg/dL Low 7.6-11.0 [facility] Serum or plasma calcium chito urement (mass/volume)Ordered By: Brian Stone on 02-28-2025 Calcium [Mass/Vol] 6.6 mg/dL Low 7.6-11.0 [facility] Serum or plasma ferritin francesco surement (mass/volume)Ordered By: Brian Stone on 02-28-2025 Ferritin [Mass/Vol] 549 ng/mL High 22-378 [facility] Serum or plasma iron saturat ion measurement (mass fraction)Ordered By: Brian Stone on 02-28-2025 Iron saturation [Mass fraction] 41.8 % 13-59 [facility] Comment on above: Previous reported re sult: 41.0 %Edited by: DANISHA on 02/28/25:1301 AMENDED REPORT 02/28/25 1301 IRON SATURATION previously reported as: 41.0 % Serum or plasma urea nitroge n measurement (mass/volume)Ordered By: Steve Weathers on 02-28-2025 Urea nitrogen [Mass/Vol] 37 mg/dL High 4-19 [facility] Serum or plasma urea nitroge n measurement (mass/volume)Ordered By: Brian Stone on 02-28-2025 Urea nitrogen [Mass/Vol] 36 mg/dL High 4-19 [facility] Sodium levelOrdered By: Trixie Weathers on 02-28-2025 Sodium [Moles/Vol] 136 mmol/L 133-145 [facility] Sodium levelOrdered By: Esvin Stone on 02-28-2025 Sodium [Moles/Vol] 135 mmol/L 133-145 [facility] Total proteinOrdered By: Stevie Stone on 02-28-2025 Protein [Mass/Vol] 5.8 g/dL Low 5.9-8.4 [facility] White blood cell (WBC) count Ordered By: Steve Weathers on 02-28-2025 WBC (Bld) [#/Vol] 10.5 10*3/uL 4.4-11.0 [facility] White blood cell (WBC) count Ordered By: Brian Chase on 02-28-2025 WBC (Bld) [#/Vol] 9.8 10*3/uL 4.4-11.0 [facility] Comprehensive Metabolic Prof ilon 02-09-2025 CO2 [Moles/Vol] 8.2 mmol/L Invalid Interpretation Code 21.0-32.0 [facility] Comment on above: Result Comment: Crit ical Result(s) Called CLARA SMITH at: 1646 by: JAEL??Results read back by same. Critical Result(s) Called CLARA SMITH at: 1646 by: VITALYMAN??Results read back by same. Critical Result(s) Called at: by:??Results read back by same. AMENDED REPORT 02/09/25 9415 CO2 previously reported as: 8.2 *L mmol/L Critical Result(s) Called CLARA SMITH at: 1646 by: VITALYMAN??Results read back by same. Performed By: #### L 100.0100, L504.2610, L500.4050 ####[facility] [address] [place], [address] LDHon 02-09-2025 LDH 184 U/L Normal 84-246 [facility] Comment on above: Order Comment: 1 Performed By: #### L 100.0100, L504.2610, L500.4050 ####[facility] [address] [place], [address] CBC W/Diff, Automatedon Absolute Lymph 1.38 X10 3/uL Normal 0.83-4.51 [facility] Comment on above: Performed By: #### L 100.0100, L504.2610, L500.4050 ####[facility] [address] [place], [address] Absolute Neut 7.5 X10 3/uL Normal 2.0-7.7 [facility] Comment on above: Performed By: #### L 100.0100, L504.2610, L500.4050 ####[facility] [address] [place], [address] Basophils/100 WBC (Bld) 0.8 % Normal 0-1 [facility] Comment on above: Performed By: #### L 100.0100, L504.2610, L500.4050 ####[facility] [address] [place], [address] Eosinophils/100 WBC (Bld) 0.8 % Normal 0-5 [facility] Comment on above: Performed By: #### L 100.0100, L504.2610, L500.4050 ####[facility] [address] [place], [address] Erythrocyte distribution width (RBC) [Ratio] 16.0 % High 11.6-14.6 [facility] Comment on above: Performed By: #### L 100.0100, L504.2610, L500.4050 ####[facility] [address] [place], [address] Hematocrit (Bld) [Volume fraction] 26.7 % Low 37-47 [facility] Comment on above: Performed By: #### L 100.0100, L504.2610, L500.4050 ####[facility] [address] [place], [address] Hemoglobin (Bld) [Mass/Vol] 8.4 g/dL Low 12.0-15.0 [facility] Comment on above: Performed By: #### L 100.0100, L504.2610, L500.4050 ####[facility] [address] [place], [address] IG% 0.100 Normal 0.0-0.9 [facility] Comment on above: Result Comment: IG% - Immature Granulocytes (promyelocytes, myelocytes and metamyelocytes) > 1% indicates that a LEFT SHIFT is Present. Performed By: #### L 100.0100, L504.2610, L500.4050 ####[facility] [address] [place], [address] Lymphocytes/100 WBC (Bld) 14.4 % Low 19-41 [facility] Comment on above: Performed By: #### L 100.0100, L504.2610, L500.4050 ####[facility] [address] [place], [address] MCH (RBC) [Entitic mass] 30.9 pg Normal 27.0-32.0 [facility] Comment on above: Performed By: #### L 100.0100, L504.2610, L500.4050 ####[facility] [address] [place], [address] MCHC (RBC) [Mass/Vol] 31.5 g/dL Low 32-36 [facility] Comment on above: Performed By: #### L 100.0100, L504.2610, L500.4050 ####[facility] [address] [place], [address] MCV (RBC) [Entitic vol] 98.2 fL Normal 81-99 [facility] Comment on above: Performed By: #### L 100.0100, L504.2610, L500.4050 ####[facility] [address] [place], [address] Monocytes/100 WBC (Bld) 5.8 % Normal 0-10 [facility] Comment on above: Performed By: #### L 100.0100, L504.2610, L500.4050 ####[facility] [address] [place], [address] Neutrophils/100 WBC (Bld) 78.1 % High 47-70 [facility] Comment on above: Performed By: #### L 100.0100, L504.2610, L500.4050 ####[facility] [address] [place], [address] Nucleated RBC (Bld) [#/Vol] 0 10*3/uL Normal 0-5 [facility] Comment on above: Performed By: #### L 100.0100, L504.2610, L500.4050 ####[facility] [address] [place], [address] Platelet mean volume (Bld) [Entitic vol] 11.8 fL Normal 6.2-12.0 [facility] Comment on above: Performed By: #### L 100.0100, L504.2610, L500.4050 ####[facility] [address] [place], [address] Platelets (Bld) [#/Vol] 165 10*3/uL Normal 150-450 [facility] Comment on above: Performed By: #### L 100.0100, L504.2610, L500.4050 ####[facility] [address] [place], [address] RBC (Bld) [#/Vol] 2.72 10*6/uL Low 4.2-5.4 [facility] Comment on above: Performed By: #### L 100.0100, L504.2610, L500.4050 ####[facility] [address] [place], [address] RDW SD 57.5 fl High 35.1-43.9 [facility] Comment on above: Performed By: #### L 100.0100, L504.2610, L500.4050 ####[facility] [address] [place], [address] WBC (Bld) [#/Vol] 9.6 10*3/uL Normal 4.4-11.0 [facility] Comment on above: Performed By: #### L 100.0100, L504.2610, L500.4050 ####[facility] [address] [place], [address] CBC W/Diff, Automatedon 06-09 07-2024 Absolute Lymph 2.00 X10 3/uL Normal 0.83-4.51 [facility] Comment on above: Performed By: #### L 100.0100 ####[facility] [address] [place], [address] Absolute Neut 4.6 X10 3/uL Normal 2.0-7.7 [facility] Comment on above: Performed By: #### L 100.0100 ####[facility] [address] [place], [address] Basophils/100 WBC (Bld) 0.4 % Normal 0-1 [facility] Comment on above: Performed By: #### L 100.0100 ####[facility] [address] [place], [address] Eosinophils/100 WBC (Bld) 2.1 % Normal 0-5 [facility] Comment on above: Performed By: #### L 100.0100 ####[facility] [address] [place], [address] Erythrocyte distribution width (RBC) [Ratio] 15.7 % High 11.6-14.6 [facility] Comment on above: Performed By: #### L 100.0100 ####[facility] [address] [place], [address] Hematocrit (Bld) [Volume fraction] 25.9 % Low 37-47 [facility] Comment on above: Performed By: #### L 100.0100 ####[facility] [address] [place], [address] Hemoglobin (Bld) [Mass/Vol] 8.2 g/dL Low 12.0-15.0 [facility] Comment on above: Performed By: #### L 100.0100 ####[facility] [address] [place], [address] IG% 0.400 Normal 0.0-0.9 [facility] Comment on above: Result Comment: IG% - Immature Granulocytes (promyelocytes, myelocytes and metamyelocytes) > 1% indicates that a LEFT SHIFT is Present. Performed By: #### L 100.0100 ####[facility] [address] [place], [address] Lymphocytes/100 WBC (Bld) 27.9 % Normal 19-41 [facility] Comment on above: Performed By: #### L 100.0100 ####[facility] [address] [place], [address] MCH (RBC) [Entitic mass] 31.4 pg Normal 27.0-32.0 [facility] Comment on above: Performed By: #### L 100.0100 ####[facility] [address] [place], [address] MCHC (RBC) [Mass/Vol] 31.7 g/dL Low 32-36 [facility] Comment on above: Performed By: #### L 100.0100 ####[facility] [address] [place], [address] MCV (RBC) [Entitic vol] 99.2 fL High 81-99 [facility] Comment on above: Performed By: #### L 100.0100 ####[facility] [address] [place], [address] Monocytes/100 WBC (Bld) 4.7 % Normal 0-10 [facility] Comment on above: Performed By: #### L 100.0100 ####[facility] [address] [place], [address] Neutrophils/100 WBC (Bld) 64.5 % Normal 47-70 [facility] Comment on above: Performed By: #### L 100.0100 ####[facility] [address] [place], [address] Nucleated RBC (Bld) [#/Vol] 0 10*3/uL Normal 0-5 [facility] Comment on above: Performed By: #### L 100.0100 ####[facility] [address] [place], [address] Platelet mean volume (Bld) [Entitic vol] 10.4 fL Normal 6.2-12.0 [facility] Comment on above: Performed By: #### L 100.0100 ####[facility] [address] [place], [address] Platelets (Bld) [#/Vol] 201 10*3/uL Normal 150-450 [facility] Comment on above: Performed By: #### L 100.0100 ####[facility] [address] [place], [address] RBC (Bld) [#/Vol] 2.61 10*6/uL Low 4.2-5.4 [facility] Comment on above: Performed By: #### L 100.0100 ####[facility] [address] [place], [address] RDW SD 56.6 fl High 35.1-43.9 [facility] Comment on above: Performed By: #### L 100.0100 ####[facility] [address] [place], [address] WBC (Bld) [#/Vol] 7.2 10*3/uL Normal 4.4-11.0 [facility] Comment on above: Performed By: #### L 100.0100 ####[facility] [address] [place], [address] Absolute lymphocyte countOrd ered By: Esko Chase on 01-11-2025 Lymphocytes Auto (Unsp spec) [#/Vol] 1.42 10*3/uL 0.83-4.51 [facility] Absolute neutrophil countOrd ered By: Brian Stone on 01-11-2025 Neutrophils (Bld) [#/Vol] 7.1 10*3/uL 2.0-7.7 [facility] Anion gap in Serum or Plasma Ordered By: Brian Stone on 01-11-2025 Anion gap [Moles/Vol] 13 mmol/L 5-15 [facility] Automated lymphocyte count a s percentage of total leukocytesOrdered By: Brian Stone on 01-11-2025 Lymphocytes/100 WBC Auto (Unsp spec) 15.4 % Low 19-41 [facility] BUN/creatinine ratioOrdered By: Brian Chase on 01-11-2025 Urea nitrogen/Creatinine [Mass ratio] 9.7 mg/mg Low 10-20 [facility] Basophil percentageOrdered B y: Brian Stone on 01-11-2025 Basophils/100 WBC (Bld) 0.5 % 0-1 [facility] Bilirubin, totalOrdered By: Brian Stone on 01-11-2025 Bilirubin [Mass/Vol] 0.30 mg/dL 0.00-1.30 [facility] CBC W/Diff, Automatedon 01-02 Absolute Lymph 1.42 X10 3/uL Normal 0.83-4.51 [facility] Comment on above: Performed By: #### L 504.2610, L503.6550, L100.0100, L503.6030, L500.4050 ####[facility] [address] [place], [address] Absolute Neut 7.1 X10 3/uL Normal 2.0-7.7 [facility] Comment on above: Performed By: #### L 504.2610, L503.6550, L100.0100, L503.6030, L500.4050 ####[facility] [address] [place], [address] Basophils/100 WBC (Bld) 0.5 % Normal 0-1 [facility] Comment on above: Performed By: #### L 504.2610, L503.6550, L100.0100, L503.6030, L500.4050 ####[facility] [address] [place], [address] Eosinophils/100 WBC (Bld) 1.7 % Normal 0-5 [facility] Comment on above: Performed By: #### L 504.2610, L503.6550, L100.0100, L503.6030, L500.4050 ####[facility] [address] [place], [address] Erythrocyte distribution width (RBC) [Ratio] 14.9 % High 11.6-14.6 [facility] Comment on above: Performed By: #### L 504.2610, L503.6550, L100.0100, L503.6030, L500.4050 ####[facility] [address] [place], [address] Hematocrit (Bld) [Volume fraction] 27.9 % Low 37-47 [facility] Comment on above: Performed By: #### L 504.2610, L503.6550, L100.0100, L503.6030, L500.4050 ####[facility] [address] [place], [address] Hemoglobin (Bld) [Mass/Vol] 8.8 g/dL Low 12.0-15.0 [facility] Comment on above: Performed By: #### L 504.2610, L503.6550, L100.0100, L503.6030, L500.4050 ####[facility] [address] [place], [address] IG% 0.500 Normal 0.0-0.9 [facility] Comment on above: Result Comment: IG% - Immature Granulocytes (promyelocytes, myelocytes and metamyelocytes) > 1% indicates that a LEFT SHIFT is Present. Performed By: #### L 504.2610, L503.6550, L100.0100, L503.6030, L500.4050 ####[facility] [address] [place], [address] Lymphocytes/100 WBC (Bld) 15.4 % Low 19-41 [facility] Comment on above: Performed By: #### L 504.2610, L503.6550, L100.0100, L503.6030, L500.4050 ####[facility] [address] [place], [address] MCH (RBC) [Entitic mass] 32.0 pg Normal 27.0-32.0 [facility] Comment on above: Performed By: #### L 504.2610, L503.6550, L100.0100, L503.6030, L500.4050 ####[facility] [address] [place], [address] MCHC (RBC) [Mass/Vol] 31.5 g/dL Low 32-36 [facility] Comment on above: Performed By: #### L 504.2610, L503.6550, L100.0100, L503.6030, L500.4050 ####[facility] [address] [place], [address] MCV (RBC) [Entitic vol] 101.5 fL High 81-99 [facility] Comment on above: Performed By: #### L 504.2610, L503.6550, L100.0100, L503.6030, L500.4050 ####[facility] [address] [place], [address] Monocytes/100 WBC (Bld) 5.1 % Normal 0-10 [facility] Comment on above: Performed By: #### L 504.2610, L503.6550, L100.0100, L503.6030, L500.4050 ####[facility] [address] [place], [address] Neutrophils/100 WBC (Bld) 76.8 % High 47-70 [facility] Comment on above: Performed By: #### L 504.2610, L503.6550, L100.0100, L503.6030, L500.4050 ####[facility] [address] [place], [address] Nucleated RBC (Bld) [#/Vol] 0 10*3/uL Normal 0-5 [facility] Comment on above: Performed By: #### L 504.2610, L503.6550, L100.0100, L503.6030, L500.4050 ####[facility] [address] [place], [address] Platelet mean volume (Bld) [Entitic vol] 11.1 fL Normal 6.2-12.0 [facility] Comment on above: Performed By: #### L 504.2610, L503.6550, L100.0100, L503.6030, L500.4050 ####[facility] [address] [place], [address] Platelets (Bld) [#/Vol] 169 10*3/uL Normal 150-450 [facility] Comment on above: Performed By: #### L 504.2610, L503.6550, L100.0100, L503.6030, L500.4050 ####[facility] [address] [place], [address] RBC (Bld) [#/Vol] 2.75 10*6/uL Low 4.2-5.4 [facility] Comment on above: Performed By: #### L 504.2610, L503.6550, L100.0100, L503.6030, L500.4050 ####[facility] [address] [place], [address] RDW SD 55.1 fl High 35.1-43.9 [facility] Comment on above: Performed By: #### L 504.2610, L503.6550, L100.0100, L503.6030, L500.4050 ####[facility] [address] [place], [address] WBC (Bld) [#/Vol] 9.2 10*3/uL Normal 4.4-11.0 [facility] Comment on above: Performed By: #### L 504.2610, L503.6550, L100.0100, L503.6030, L500.4050 ####[facility] [address] [place], [address] Carbon dioxide, total [Moles /volume] in Central venous bloodOrdered By: Brian Stone on 01-11-2025 CO2 [Moles/Vol] 7.8 mmol/L Low 21.0-32.0 [facility] Comment on above: Critical Result(s) C alled at: by: Results read back by same.CRITICAL RESULTS CALLED TO [facility] BY BRIDGETTE WILSON. RESULTS READ BACK BY SAME. 1019Critical Result(s) Called at: by: Results read back by same. Chloride assayOrdered By: Yeni Stone on 01-11-2025 Chloride [Moles/Vol] 115 mmol/L High 98-108 [facility] Comprehensive Metabolic Prof ilon 01-11-2025 CO2 [Moles/Vol] 7.8 mmol/L Invalid Interpretation Code 21.0-32.0 [facility] Comment on above: Result Comment: Crit ical Result(s) Called at: by:??Results read back by same. [facility]IL[facility]. RESULTS READ BACK BY SAME. 1019 Critical Result(s) Called at: by:??Results read back by same. Critical Result(s) Called at: by:??Results read back by same. CRITICAL RESULTS [facility] BRIDGETTE WILSON. RESULTS READ BACK BY SAME. 1019 Critical Result(s) Called at: by:??Results read back by same. Critical Result(s) Called at: by:??Results read back by same. CRITICAL RESULTS [facility] BRIDGETTE WILSON. RESULTS READ BACK BY SAME. 1019 Critical Result(s) Called at: by:??Results read back by same. Critical Result(s) Called at: by:??Results read back by same. AMENDED REPORT 01/11/25 1031 CO2 previously reported as: 7.8 *L mmol/L Critical Result(s) Called at: by:??Results read back by same. CRITICAL RESULTS CALLED TO [facility] BY BRIDGETTE WILSON. RESULTS READ BACK BY SAME. 1019 Critical Result(s) Called at: by:??Results read back by same. Performed By: #### L 504.2610, L503.6550, L100.0100, L503.6030, L500.4050 ####[facility] [address] [place], [address] Eosinophil percentageOrdered By: Brian Stone on 01-11-2025 Eosinophils/100 WBC (Bld) 1.7 % 0-5 [facility] Erythrocyte distribution wid th ratioOrdered By: Brian Stone on 01-11-2025 Erythrocyte distribution width (RBC) [Ratio] 14.9 % High 11.6-14.6 [facility] Erythrocyte distribution wid th standard deviationOrdered By: Brian Stone on 01-11-2025 Erythrocyte distribution width (RBC) [Ratio] 55.1 fl High 35.1-43.9 [facility] Ferritinon 01-11-2025 Ferritin [Mass/Vol] 602 ng/mL High 22-378 [facility] Comment on above: Performed By: #### L 504.2610, L503.6550, L100.0100, L503.6030, L500.4050 ####[facility] [address] [place], [place], [address] Glomerular filtration rate ( GFR) estimation/1.73 sq m using serum, plasma, or whole bOrdered By: Brian Stone on 01-11-2025 GFR/1.73 sq M.predicted among non-blacks MDRD (S/P/Bld) [Vol rate/Area] 15 mL/min/{1.73_m2} Low >60 [facility] Comment on above: mL/min/1.73m2 CKD-EP I Creatinine Equation (2020) Hematocrit Auto (Bld) [Volum e fraction]Ordered By: Brian Stone on 01-11-2025 Hematocrit (Bld) [Volume fraction] 27.9 % Low 37-47 [facility] Hemoglobin measurementOrdere d By: Brian Stone on 01-11-2025 Hemoglobin (Bld) [Mass/Vol] 8.8 g/dL Low 12.0-15.0 [facility] Immature granulocytes/100 WB C Auto (Bld)Ordered By: Brian Stone on 01-11-2025 Immature granulocytes/100 WBC (Bld) 0.500 % 0.0-0.9 [facility] Comment on above: IG% - Immature Granu locytes (promyelocytes, myelocytes and metamyelocytes) > 1% indicates that a LEFT SHIFT is Present. Iron measurement (mass/mass) Ordered By: Brian Stone on 01-11-2025 Iron (Unsp spec) [Mass/Mass] 67 ug/dL 50-170 [facility] Iron+Iron Binding Capacityon 01-11-2025 Iron [Mass/Vol] 67 ug/dL Normal 50-170 [facility] Comment on above: Performed By: #### L 504.2610, L503.6550, L100.0100, L503.6030, L500.4050 ####[facility] [address] [place], [address] UIBC < 17 Low 228-428 [facility] Comment on above: Performed By: #### L 504.2610, L503.6550, L100.0100, L503.6030, L500.4050 ####[facility] [address] [place], [address] LDHon 01-11-2025 LDH 134 U/L Normal 84-246 [facility] Comment on above: Order Comment: 1 Result Comment: Hemo lysis present, Results??could be affected. ?? Performed By: #### L 504.2610, L503.6550, L100.0100, L503.6030, L500.4050 ####[facility] [address] [place], [address] Laboratory - Chemistry and C hemistry - challengeOrdered By: Brian Stone on 01-11-2025 AST [Catalytic activity/Vol] 14 U/L <32 [facility] Lactate dehydrogenase (LDH) measurementOrdered By: Brian Stone on 01-11-2025 LDH [Catalytic activity/Vol] 134 U/L 84-246 [facility] Comment on above: Hemolysis present, R esults could be affected. MCV (mean corpuscular volume ) determinationOrdered By: Brian Stone on 01-11-2025 MCV (RBC) [Entitic vol] 101.5 fL High 81-99 [facility] Mean corpuscular hemoglobin (MCH) determinationOrdered By: Brian Stone on 01-11-2025 MCH (RBC) [Entitic mass] 32.0 pg 27.0-32.0 [facility] Mean corpuscular hemoglobin concentration (MCHC) determinationOrdered By: Brian Stone on 01-11-2025 MCHC (RBC) [Mass/Vol] 31.5 g/dL Low 32-36 [facility] [facility] Mean platelet volume determi nationOrdered By: Brian Stone on 01-11-2025 Platelet mean volume (Bld) [Entitic vol] 11.1 fL 6.2-12.0 [facility] Monocyte percentageOrdered B y: Brian Stone on 01-11-2025 Monocytes/100 WBC (Bld) 5.1 % 0-10 [facility] Neutrophil percentageOrdered By: Brian Dwyertrevin on 01-11-2025 Neutrophils/100 WBC (Bld) 76.8 % High 47-70 [facility] No Panel InformationOrdered By: Brian Dwyertrevin on 01-11-2025 Unsaturated Iron Binding Capacity < 17 ug/dL Low 228-428 [facility] Nucleated red blood cell per centageOrdered By: Brian Dwyertrevin on 01-11-2025 Nucleated RBC/100 WBC (Bld) [Ratio] 0 % 0-5 [facility] Oncology Visit Reporton 01-02 Oncology Visit Report [facility] [address] [place] [address] OFFICE VISIT Date of Service: 01/11/25 0935 MR#: [id number] Acct: [id number] Name: LETTY MORENO Rep #: [id number] : 1950 From: Brian Stone MD Age/Sex: 74/F [place] [facility] Status: Signed HPI Subjective Date of Service 01/11/25 Chief Complaint F/u for Bladder cancer, History of Present Illness 74 y.o.woman presented with gross hematuria. Cystoscopy showed a large bladder mass. CT on 04/21/2019 showed rounded filling defect in the bladder with right hydronephrosis and slight left hydronephrosis, large retroperitoneal nodes and prominent left adrenal gland. She had transurethral bladder resection on 04/23/2019. Biopsy showed urothelial carcinoma. She had Port placed on 05/10/2019. PET/CT was done on 05/10/2019 hypermetabolic mass in bladder. Started on Chemotherapy with Carboplatin and Gemzar because Cr was greater than 1.5 on 05/11/2019. C1D8 Gemzar delayed a week d/t thrombocytopenia and abandoned. Received C2D1 Carboplatin and Gemzar on 06/01/2019 and D8 Gemzar on 06/15/2019. Got C3D1 on 06/29/2019. C3D8 delayed per patient request and eventually abandoned. She got C4D1 Carboplatin and Gemzar on 07/26/2019, C4D8 Gemzar was held because of Thrombocytopenia. She went on to have robotic assisted laparoscopic anterior exenteration with bilateral extended pelvic lymph node dissection and creation of an ileal conduit on 10/13/[address] Yin at [facility]. Pathology on 10/19/2019 showed high-grade urothelial cancer with focal micropapillary features involving posterior left wall right wall anterior wall dome and trigone of the bladder. Tumor extends into sara-presacral soft tissue as well as the vagina wall, resection margin is focally positive anterior wall with lymphovascular invasion, 1 of 2 lymph nodes positive for metastatic carcinoma. Pathologic staging pT4a pN1. Recovery from surgery was slow. CT scan on 02/09/2020 showed no evidence of disease. Had DVT in March 2020 and on Eliquis. She was seen on 04/17/2022 with dizziness, MRI brain on 05/01/2022 was negative. She was found to have MARIIA, started on oral iron. [place] tired and weak with headaches on and off, associated with vomiting on and off, MRI head and CT to R/O metastatic disease were requested and comes for follow up. Still feels tired, has ringing in both ears. 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 COPD (chronic obstructive pulmonary disease) Chronic systolic (congestive) heart failure Hypokalemia UTI (urinary tract infection) Anemia due to chemotherapy Chemotherapy management, encounter for Urothelial carcinoma of bladder Neutropenia due to and not concurrent with chemotherapy ( 03/2019) Thrombocytopenia due to drugs Anemia associated with chemotherapy Frequent headaches Fatigue Cancer-related pain Smoking history Other hydronephrosis Gross hematuria Chemotherapy management, encounter for Surgical History BLADDER RESECTION History of hysterectomy Encounter for adjustment and management of vascular access device Family History Brother Aneurysm Heart disease Mother Heart disease Cancer Father No problems noted. Social History adopted: No Smoking Status: Current every day smoker ROS Constitutional Constitutional: Reports systems reviewed and no addt'l complaints, except as documented Eyes Eyes: Reports systems reviewed and no addt'l complaints, except as documented ENT HEENT: Reports systems reviewed and no addt'l complaints, except as documented Cardiovascular Cardiovascular: Reports systems reviewed and no addt'l complaints, except as documented Respiratory/Chest Respiratory/Chest: Reports systems reviewed and no addt'l complaints, except as documented Gastrointestinal Gastrointestinal: Reports systems reviewed and no addt'l complaints, except as documented Genitourinary Genitourinary: Reports systems reviewed and no addt'l complaints, except as documented and other Details: Ileal conduit functioning well Integumentary Integumentary: Reports systems reviewed and no addt'l complaints, except as documented Neurologic Neurologic: Reports systems reviewed and no addt'l complaints, except as documented Psychiatric P (more content not included)... Normal [facility] Platelet countOrdered By: Yeni Stone on 01-11-2025 Platelets (Bld) [#/Vol] 169 10*3/uL 150-450 [facility] Potassium measurement (mass/ volume)Ordered By: Brian Stone on 01-11-2025 Potassium (Unsp spec) [Mass/Vol] 3.2 mmol/L Low 3.3-5.1 [facility] RBC Auto (Bld) [#/Vol]Ordere d By: Brian Stone on 01-11-2025 RBC (Bld) [#/Vol] 2.75 10*6/uL Low 4.2-5.4 [facility] Serum creatinine measurement (mass/volume)Ordered By: Brian Stone on 01-11-2025 Creatinine [Mass/Vol] 3.17 mg/dL High 0.70-1.20 [facility] Serum globulin measurementOr dered By: Brian Stone on 01-11-2025 Globulin (S) [Mass/Vol] 3.7 g/dL 2.2-4.2 [facility] Serum glucose measurement (m ass/volume)Ordered By: Brian Stone on 01-11-2025 Glucose [Mass/Vol] 131 mg/dL High 70-99 [facility] Serum or plasma alanine العراقي otransferase (ALT) measurementOrdered By: Brian Stone on 01-11-2025 ALT [Catalytic activity/Vol] 6 U/L <35 [facility] Serum or plasma albumin chito urement (mass/volume)Ordered By: Brian Stone on 01-11-2025 Albumin [Mass/Vol] 2.7 g/dL Low 3.4-4.8 [facility] Serum or plasma albumin/glob ulin mass ratioOrdered By: Brian Stone on 01-11-2025 Albumin/Globulin [Mass ratio] 0.7 {ratio} Low 0.9-2.4 [facility] Serum or plasma alkaline mariusz sphatase measurementOrdered By: Brian Stone on 01-11-2025 ALP [Catalytic activity/Vol] 143 U/L High 35-104 [facility] Serum or plasma calcium chito urement (mass/volume)Ordered By: Brian Stone on 01-11-2025 Calcium [Mass/Vol] 7.3 mg/dL Low 7.6-11.0 [facility] Serum or plasma ferritin francesco surement (mass/volume)Ordered By: Brian Stone on 01-11-2025 Ferritin [Mass/Vol] 602 ng/mL High 22-378 [facility] Serum or plasma urea nitroge n measurement (mass/volume)Ordered By: Brian Stone on 01-11-2025 Urea nitrogen [Mass/Vol] 31 mg/dL High 4-19 [facility] Sodium levelOrdered By: Esvin Stone on 01-11-2025 Sodium [Moles/Vol] 136 mmol/L 133-145 [facility] Total proteinOrdered By: Stevie Stone on 01-11-2025 Protein [Mass/Vol] 6.3 g/dL 5.9-8.4 [facility] White blood cell (WBC) count Ordered By: Brian Stone on 01-11-2025 WBC (Bld) [#/Vol] 9.2 10*3/uL 4.4-11.0 [facility] Brain without Contraston Brain without Contrast [facility] Imaging Services [address] [place] [address] Brain without Contrast MR#: [id number] Acct: [id number] Name: LETTY MORENO Rep #: [id number] : 1950 F 74 From: Primitivo Bingham MD PCP: Dr. Parminder Guajardo DO Status: REG CLI Study: Brain without Contrast Date of Exam: 12/29/24 Exam# [id number] Ordering Dr: Brian Stone MD PROCEDURE: BRAIN WITHOUT CONTRAST 12/29/2024 REASON FOR EXAM: HEADACHES/HX OF BLADDER CA TECHNIQUE: Noncontrast brain MRI. Multiplanar and multisequence images were obtained. COMPARISON: 05/01/2022 FINDINGS: There is a small focus of increased diffusion signal in the left cerebellum. This could represent a subacute lacunar infarct. Please correlate clinically. There is mild mastoid fluid on the right. There is mild atrophy with compensatory ventricular prominence. No pathologic flow voids are identified. Mild periventricular chronic small-vessel ischemic changes present. There is no acute or chronic hemorrhage. Contrast was not administered. MRI/Brain without Contrast IMPRESSION: Punctate increased signal within the left cerebellum which may represent a subacute lacunar type infarction. Underlying atrophy and microvascular disease Reading Location: [facility] CC: Dr. Parminder Guajardo DO; Dr. Brian Stone MD Projector Booth Operator: Signed Normal [facility] Magnetic resonance imaging r eportOrdered By: Primitivo Bingham on 12-29-2024 Study report [facility] Imaging Services [address] [place], [place] [address] Brain without Contrast MR#: [id number] Acct: [id number] Name: LETTY MORENO Rep #: [id number] : 1950 F 74 From: Nickolas Bingham MD PCP: Dr. Parminder Guajardo DO Status: REG C LI Study:Brain without Contrast Date of Exam: 12/29/24 Exam# [id number] Ordering Dr: Stevie Stone MD PROCEDURE: BRAIN WITHOUT CONTRAST 12/29/2024 REASON FOR EXAM: HEADACHES/HX OF BLADDER CA TECHNIQUE: Noncontrast brain MRI. Multiplanar and multisequence images were obtained. COMPARISON: 05/01/2022 FINDINGS: There is a small focus of increased diffusion signal in the left cerebellum. This could represent a subacute lacunar infarct. Please correlate clinically. There is mild mastoid fluid on the right. There is mild atrophy with compensatory ventricular prominence. No pathologic flow voids are identified. Mild periventricular chronic small-vessel ischemic changes present. There is no acute or chronic hemorrhage. Contrast was not administered. MRI/Brain without Contrast IMPRESSION: Punctate increased signal within the left cerebellum which may represent a subacute lacunar type infarction. Underlying atrophy and microvascular disease Reading Location: [facility] CC: Dr. Parminder Guajardo DO; Dr. Brian Stone MD ~ Projector Booth Operator: Signed [facility] Echocardiogram study reportO rdered By: Albino Moreau on 12-08-2024 Study report [facility] [address] [facility] [place] [address] ONC Echo Complete 12/08/24 1018 MR#: [id number] Acct: [id number] Name: LETTY MORENO Rep #:[id number] : 1950 74 From: Albino Rush Attending Dr: Dr. Albino Moreau MD S tatus: REG CLI Ordering Dr: Albino Moreau MD Date: 02/25 Location: [facility] Sex: F C Admitted: Reason For Study Reason For Study: Chemotherapy Procedure This was a 2D Doppler, Color Flow transthoracic echocardiogram. Myocardial strain analysis was performed in this exam to aid in the assessment of cardiac function. Technically difficult study, patient scanned supine due to left arm pain. Exam performed in department. Left Ventricle Normal LV size. The global longitudinal strain = -16.1% (abnormal). The left ventricular ejection fraction is 45 %. Stage 1 diastolic dysfunction. There is mild global hypokinesis of the left ventricle. Right Ventricle Normal RV size. Normal systolic function. Atria Normal left atrium. Normal right atrium. Mitral Valve Normal mitral valve. Mild (1+) mitral valve insufficiency. Tricuspid Valve Normal tricuspid valve. Aortic Valve Trisinus/trileaflet aortic valve. Pulmonic Valve Normal pulmonic valve. Great Vessels Normal aortic root. The pulmonary artery is normal size. Inferior vena cava collapse with respiration. Pericardium/Pleural No pericardial effusion. MMode/2D Measurements & Calculations LVIDd: 5.5 cm IVSd: 0.94 cm Ao root diam: 3.8 cm LVIDs: 4.3 cm LVPWd: 0.81 cm RVDd: 3.1 cm FS: 20.8 % LAV(MOD-bp): 34.5 ml LVAd ap4: 38.5 cm2 SV(MOD-sp4): 66.7 ml LAV(MOD-bp) Indexed: 19.8 ml/m2 LVLd ap4: 9.1 cm SI(MOD-sp4): 38.2 ml/m2 LAV(MOD-sp2): 26.1 ml EDV(MOD-sp4): 135.9 ml LAV(MOD-sp4): 38.7 ml EDV(sp4-el): 138.8 ml LVAs ap4: 25.6 cm2 LVLs ap4: 7.7 cm ESV(MOD-sp4): 69.2 ml ESV(sp4-el): 72.9 ml EF(MOD-sp4): 49.1 % EF(sp4-el): 47.4 % SV(sp4-el): 65.8 ml LA A4 area: 16.7 cm2 RA A4 area: 14.2 cm2 TAPSE: 2.1 cm Time Measurements MV dec time: 0.28 sec Doppler Measurements & Calculations MV E max juan: 79.6 cm/sec Lat Peak E' Juan: 8.2 cm/sec Med Peak E' Juan: 7.0 cm/sec MV A max juan: 132.7 cm/sec E/E' lat: 9.7 E/E' med: 11.3 MV E/A: 0.60 MV V2 max: 157.9 cm/sec MV P1/2t max juan: 90.6 cm/sec Ao V2 max: 138.1 cm/sec MV max P.0 mmHg MV P1/2t: 98.7 msec Ao max P.6 mmHg MV V2 mean: 77.1 cm/sec MV dec slope: 268.8 cm/sec2 Ao V2 mean: 94.8 cm/sec MV mean P.9 mmHg Ao mean P.1 mmHg MV V2 VTI: 43.2 cm MVA(P1/2t): 2.2 cm2 Ao V2 VTI: 32.1 cm AV (velocity ratio): 0.86 LV V1 max: 113.8 cm/sec LV V1 max P.2 mmHg LV V1 mean P.1 mmHg LV V1 mean: 83.5 cm/sec LV V1 VTI: 27.6 cm ECHO/ONC Echo Complete Interpretation Summary Normal LV size. The global longitudinal strain = -16.1% (abnormal). The left ventricular ejection fraction is 45 %. Stage 1 diastolic dysfunction. The global longitudinal strain is mildly abnormal. The global longitudinal strain = -16.1% (abnormal). Ordering Physician: Albino Moreau Referring Physician: Albino Moreau Performed By: Kingston Joyner RCS 12/08/24 1145 Date _ Albino Moreau MD CC: Dr. Parminder Guajardo DO; Dr. Albino Moreau MD ~ Date Dictated: 12/08/24 1018 Date Transcribed: 12/08/24 114 Projector Booth Operator: Signed [facility] Work Phone: ONC Echo Completeon 12-09-19 ONC Echo Complete [facility] [place] [address] ONC Echo Complete 12/08/24 1018 MR#: [id number] Acct: [id number] Name: LETTY MORENO Rep #: [id number] : 1950 74 From: Albino Moreau MD Attending Dr: Dr. Albino Moreau MD Status: KYARA SAMPSON Ordering Dr: Albino Moreau MD Date: 12/08/24 Location: [facility] Sex: F C Admitted: Reason For Study Reason For Study: Chemotherapy Procedure This was a 2D Doppler, Color Flow transthoracic echocardiogram. Myocardial strain analysis was performed in this exam to aid in the assessment of cardiac function. Technically difficult study, patient scanned supine due to left arm pain. Exam performed in department. Left Ventricle Normal LV size. The global longitudinal strain = -16.1% (abnormal). The left ventricular ejection fraction is 45 %. Stage 1 diastolic dysfunction. There is mild global hypokinesis of the left ventricle. Right Ventricle Normal RV size. Normal systolic function. Atria Normal left atrium. Normal right atrium. Mitral Valve Normal mitral valve. Mild (1+) mitral valve insufficiency. Tricuspid Valve Normal tricuspid valve. Aortic Valve Trisinus/trileaflet aortic valve. Pulmonic Valve Normal pulmonic valve. Great Vessels Normal aortic root. The pulmonary artery is normal size. Inferior vena cava collapse with respiration. Pericardium/Pleural No pericardial effusion. MMode/2D Measurements Calculations LVIDd: 5.5 cm IVSd: 0.94 cm Ao root diam: 3.8 cm LVIDs: 4.3 cm LVPWd: 0.81 cm RVDd: 3.1 cm FS: 20.8 % LAV(MOD-bp): 34.5 ml LVAd ap4: 38.5 cm2 SV(MOD-sp4): 66.7 ml LAV(MOD-bp) Indexed: 19.8 ml/m2 LVLd ap4: 9.1 cm SI(MOD-sp4): 38.2 ml/m2 LAV(MOD-sp2): 26.1 ml EDV(MOD-sp4): 135.9 ml LAV(MOD-sp4): 38.7 ml EDV(sp4-el): 138.8 ml LVAs ap4: 25.6 cm2 LVLs ap4: 7.7 cm ESV(MOD-sp4): 69.2 ml ESV(sp4-el): 72.9 ml EF(MOD-sp4): 49.1 % EF(sp4-el): 47.4 % SV(sp4-el): 65.8 ml LA A4 area: 16.7 cm2 RA A4 area: 14.2 cm2 TAPSE: 2.1 cm Time Measurements MV dec time: 0.28 sec Doppler Measurements Calculations MV E max juan: 79.6 cm/sec Lat Peak E' Juan: 8.2 cm/sec Med Peak E' Juan: 7.0 cm/sec MV A max juan: 132.7 cm/sec E/E' lat: 9.7 E/E' med: 11.3 MV E/A: 0.60 MV V2 max: 157.9 cm/sec MV P1/2t max juan: 90.6 cm/sec Ao V2 max: 138.1 cm/sec MV max P.0 mmHg MV P1/2t: 98.7 msec Ao max P.6 mmHg MV V2 mean: 77.1 cm/sec MV dec slope: 268.8 cm/sec2 Ao V2 mean: 94.8 cm/sec MV mean P.9 mmHg Ao mean P.1 mmHg MV V2 VTI: 43.2 cm MVA(P1/2t): 2.2 cm2 Ao V2 VTI: 32.1 cm AV (velocity ratio): 0.86 LV V1 max: 113.8 cm/sec LV V1 max P.2 mmHg LV V1 mean P.1 mmHg LV V1 mean: 83.5 cm/sec LV V1 VTI: 27.6 cm ECHO/ONC Echo Complete Interpretation Summary Normal LV size. The global longitudinal strain = -16.1% (abnormal). The left ventricular ejection fraction is 45 %. Stage 1 diastolic dysfunction. The global longitudinal strain is mildly abnormal. The global longitudinal strain = -16.1% (abnormal). Ordering Physician: Albino Moreau Referring Physician: Albino Moreau Performed By: Kingston Joyner RCS 12/08/24 1145 Date Albino Moreau MD CC: Dr. Parminder Guajardo DO; Dr. Albino Moreau MD Date Dictated: 12/08/24 1018 Date Transcribed: 12/08/24 1145 Projector Booth Operator: Signed Normal [facility] CT Chest, Abd, Pelvis WO Con ton 11-25-2024 CT Chest, Abd, Pelvis WO Cont [facility] Imaging Services [address] [place] [address] [address] Chest, Abd, Pelvis WO Cont MR#: [id number] Acct: [id number] Name: NICOLE TRVEINOLETTY Feliberto Rep #: [id number] : 1950 F 74 From: Mitchell Rosas MD PCP: Dr. Parminder Guajardo DO Status: REG CLI Study: CT Chest, Abd, Pelvis WO Cont Date of Exam: Exam# [id number] Ordering Dr: Brian Stone MD PROCEDURE: CT CHEST, ABD, PELVIS WO CONT 11/25/2024 REASON FOR EXAM: BLADDER CA TECHNIQUE: Chest, abdomen and pelvis CT without intravenous contrast. Coronal and Sagittal reconstruction series were provided. One or more dose reduction techniques were used (e.g., Automated exposure control, adjustment of the mA and/or kV according to patient size, use of iterative reconstruction technique. FINDINGS: CT CHEST: Hardware: Right internal jugular chest port. Lymph nodes: Unremarkable Heart and Vasculature: No cardiomegaly. Atherosclerotic calcifications of the thoracic aorta. Thoracic aorta and pulmonary arteries have normal contours; noncontrast technique limits evaluation. Coronary Artery Calcifications: Present Lungs and Airways: No pulmonary nodule Pleura: No pleural effusion Bones: Unremarkable CT ABDOMEN / PELVIS: Noncontrast technique limits evaluation of the abdominal and pelvic viscera. Liver: Cirrhosis. No focal mass Gallbladder: Several calcified gallstones. Spleen: Normal size. Pancreas: Normal size without evidence of mass surrounding inflammation or ductal dilation. Adrenals: Unremarkable. Kidneys: 2 mm nonobstructing stone lower pole of the right kidney. We are left hydronephrosis and ureteral dilatation with severe parenchymal atrophy consistent with chronic obstruction. Bladder: Status post cystectomy with a right upper quadrant ileal conduit. Reproductive Organs: Unremarkable. Bowel: No bowel obstruction. Appendix: The appendix is not identified. There is no inflammatory process identified in the right lower quadrant to suggest appendicitis. Lymph nodes: Unremarkable. Vasculature: Mild diffuse atherosclerotic calcifications are noted. Peritoneum / Retroperitoneum: Unremarkable Bones: Multiple chronic mild compression fractures of the lumbar spine. CT/CT Chest, Abd, Pelvis WO Cont IMPRESSION: No CT evidence of residual, recurrent, or metastatic bladder cancer. Chronic obstruction of the left ureter. Cirrhosis. Cholelithiasis. Reading Location: [id number] CC: Dr. Parminder Guajardo DO; Dr. Brian Stone MD Projector Booth Operator: Signed Normal [facility] L501.5101on 11-17-2024 GGTP 11 IU/L Normal 0-60 [facility] Comment on above: Result Comment: Perf ormed at: - [facility] [address] [id number] Drug Counselor: Gildardo Vu PhD, Phone: [phone] Performed By: #### L 501.5101, L501.4305 ####[facility] [address] [place], [address] Alkaline Phosphataseon 11-16 ALK PHOS 132 U/L High 35-104 [facility] Comment on above: Order Comment: ADD O N LABS FROM 11/12/24 THANKS Performed By: #### L 501.5101, L501.4305 ####[facility] [address] [facility] [place], [address] AST(SGOT)on 11-15-2024 AST [Catalytic activity/Vol] 15 U/L Normal <=31 [facility] Comment on above: Performed By: #### L 503.6030, L501.4405, L001.0705, L501.0000, L3250.0100, L501.1800, L503.6550, L503.0106, L501.4100 #### [facility] [address] [place], [address] Alanine Aminotransferas (SGP T)on 11-15-2024 ALT [Catalytic activity/Vol] 5 U/L Normal <=34 [facility] Comment on above: Performed By: #### L 503.6030, L501.4405, L001.0705, L501.0000, L3250.0100, L501.1800, L503.6550, L503.0106, L501.4100 #### [facility] [address] [place], [address] Albumin, Serumon 11-15-2024 Albumin [Mass/Vol] 2.9 g/dL Low 3.4-4.8 [facility] Comment on above: Performed By: #### L 503.6030, L501.4405, L001.0705, L501.0000, L3250.0100, L501.1800, L503.6550, L503.0106, L501.4100 #### [facility] [address] [place], [address] Bilirubin,Total Dir,Indon I BILI 0.14 mg/dL Normal 0.00-1.00 [facility] Comment on above: Performed By: #### L 503.6030, L501.4405, L001.0705, L501.0000, L3250.0100, L501.1800, L503.6550, L503.0106, L501.4100 #### [facility] [address] [place], [address] Ferritinon 11-15-2024 Ferritin [Mass/Vol] 397 ng/mL High 22-378 [facility] Comment on above: Performed By: #### L 503.6030, L501.4405, L001.0705, L501.0000, L3250.0100, L501.1800, L503.6550, L503.0106, L501.4100 #### [facility] [address] [place], [address] Iron+Iron Binding Capacityon 11-15-2024 TIBC 111 ug/dL Low 250-450 [facility] Comment on above: Performed By: #### L 503.6030, L501.4405, L001.0705, L501.0000, L3250.0100, L501.1800, L503.6550, L503.0106, L501.4100 ####[facility] [address] [place], [address] Oncology Visit Reporton 11-02 Oncology Visit Report [facility] [address] [place] [address] OFFICE VISIT Date of Service: 11/15/24 1635 MR#: [id number] Acct: [id number] Name: LETTY MORENO Rep #: [id number] : 1950 From: Brian Stone MD Age/Sex: 74/F [place] [facility] Status: Signed HPI Subjective Date of Service 11/15/24 Chief Complaint F/u for Bladder cancer, History of Present Illness 74 y.o.woman presented with gross hematuria. Cystoscopy showed a large bladder mass. CT on 04/21/2019 showed rounded filling defect in the bladder with right hydronephrosis and slight left hydronephrosis, large retroperitoneal nodes and prominent left adrenal gland. She had transurethral bladder resection on 04/23/2019. Biopsy showed urothelial carcinoma. She had Port placed on 05/10/2019. PET/CT was done on 05/10/2019 hypermetabolic mass in bladder. Started on Chemotherapy with Carboplatin and Gemzar because Cr was greater than 1.5 on 05/11/2019. C1D8 Gemzar delayed a week d/t thrombocytopenia and abandoned. Received C2D1 Carboplatin and Gemzar on 06/01/2019 and D8 Gemzar on 06/15/2019. Got C3D1 on 06/29/2019. C3D8 delayed per patient request and eventually abandoned. She got C4D1 Carboplatin and Gemzar on 07/26/2019, C4D8 Gemzar was held because of Thrombocytopenia. She went on to have robotic assisted laparoscopic anterior exenteration with bilateral extended pelvic lymph node dissection and creation of an ileal conduit on 10/13/[address] Yin at [facility]. Pathology on 10/19/2019 showed high-grade urothelial cancer with focal micropapillary features involving posterior left wall right wall anterior wall dome and trigone of the bladder. Tumor extends into sara-presacral soft tissue as well as the vagina wall, resection margin is focally positive anterior wall with lymphovascular invasion, 1 of 2 lymph nodes positive for metastatic carcinoma. Pathologic staging pT4a pN1. Recovery from surgery has been slow. CT scan on 02/09/2020 showed no evidence of disease. Had DVT in March 2020 and on Eliquis. She was seen on 04/17/2022 with dizziness, MRI brain on 05/01/2022 was negative. She was found to have MARIIA, started on oral iron. Comes for follow up. Feels tired and weak, has headaches on and off, associated with vomiting on and off. 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 COPD (chronic obstructive pulmonary disease) Chronic systolic (congestive) heart failure Hypokalemia UTI (urinary tract infection) Anemia due to chemotherapy Chemotherapy management, encounter for Urothelial carcinoma of bladder Neutropenia due to and not concurrent with chemotherapy ( 03/2019) Thrombocytopenia due to drugs Anemia associated with chemotherapy Frequent headaches Fatigue Cancer-related pain Smoking history Other hydronephrosis Gross hematuria Chemotherapy management, encounter for Surgical History BLADDER RESECTION History of hysterectomy Encounter for adjustment and management of vascular access device Family History Brother Aneurysm Heart disease Mother Heart disease Cancer Father No problems noted. Social History adopted: No Smoking Status: Current every day smoker Intake Vital Signs 11/12/24 10:12 11/15/24 16:36 Height 4 ft 11 in 4 ft 11 in Weight: 79.832 kg 79.379 kg BMI 35.5 35.3 BP 126/79 H 148/74 H Blood Pressure Location Rt brachial Rt brachial Position Sitting Sitting Respiration 22 H 18 Pulse 84 85 Pulse Source Monitor Monitor Temp 97.5 F L 98.4 F Temperature Source Temporal Artery Temporal Artery Pulse Oximetry (%) 100 100 Oxygen Delivery Method room air room air Intake Is patient in pain?: Yes (left shoulder) Pain scale (1-10): 9 Allergies Penicillins Allergy (Mild, Verified 11/15/24 16:43) rash ciprofloxacin (From Cipro) Adverse Reaction (Verified 11/15/24 16:43) Nausea/Vom/Diarrhea sulfamethoxazole (From Bactrim) Adverse Reaction (Verified 11/15/24 16:43) Nausea/Vom/Diarrhea trimethoprim (From Bactrim) Adverse Reaction (Verified 11/15/24 16:43) Nausea/Vom/Diarrhea Medications ???Medication ???Instructions ???Recorded ???Confirmed ???Type ondansetron HCl 4 mg tablet 4 mg PO DAILY 09/10/21 11/15/24 Hi story apixaban (more content not included)... Normal [facility] Protein, Totalon 11-15-2024 Albumin/Globulin [Mass ratio] 0.8 {ratio} Low 0.9-2.4 [facility] Comment on above: Performed By: #### L 503.6030, L501.4405, L001.0705, L501.0000, L3250.0100, L501.1800, L503.6550, L503.0106, L501.4100 #### [facility] [address] [place], [address] Globulin (S) [Mass/Vol] 3.9 g/dL Normal 2.2-4.2 [facility] Comment on above: Performed By: #### L 503.6030, L501.4405, L001.0705, L501.0000, L3250.0100, L501.1800, L503.6550, L503.0106, L501.4100 #### [facility] [address] [place], [address] T PROT 6.8 g/dL Normal 5.9-8.4 [facility] Comment on above: Performed By: #### L 503.6030, L501.4405, L001.0705, L501.0000, L3250.0100, L501.1800, L503.6550, L503.0106, L501.4100 #### [facility] [address] [place], [address] Vitamin B12on 11-15-2024 Cobalamin (Vitamin B12) [Mass/Vol] 360 pg/mL Normal 180-914 [facility] Comment on above: Performed By: #### L 503.6030, L501.4405, L001.0705, L501.0000, L3250.0100, L501.1800, L503.6550, L503.0106, L501.4100 #### [facility] [address] [place], [address] ALK Phos Isoenzymeon 025 ALK PHOS, S Normal [facility] Comment on above: Result Comment: @BuyouO NG ORDER PLACED OK TO CANCEL PER CARLOS, ONC CHECKOUT Performed By: #### L 503.6030, L501.4405, L001.0705, L501.0000, L3250.0100, L501.1800, L503.6550, L503.0106, L501.4100 ####[facility] [address] [place], [address] BONE FRACTION Normal [facility] Comment on above: Result Comment: @BuyouO NG ORDER PLACED OK TO CANCEL PER CRALOS, ONC CHECKOUT Performed By: #### L 503.6030, L501.4405, L001.0705, L501.0000, L3250.0100, L501.1800, L503.6550, L503.0106, L501.4100 ####[facility] [address] [place], [address] INTESTINAL FRAC Normal [facility] Comment on above: Result Comment: @WRO NG ORDER PLACED OK TO CANCEL PER CARLOS ONC CHECKOUT Performed By: #### L 503.6030, L501.4405, L001.0705, L501.0000, L3250.0100, L501.1800, L503.6550, L503.0106, L501.4100 ####[facility] [address] [place], [address] LIVER FRACTION Normal [facility] Comment on above: Result Comment: @[facility] NG ORDER PLACED OK TO CANCEL PER CARLOS ONC CHECKOUT Performed By: #### L 503.6030, L501.4405, L001.0705, L501.0000, L3250.0100, L501.1800, L503.6550, L503.0106, L501.4100 ####[facility] [address] [place], [address] Absolute lymphocyte countOrd ered By: Albino Moreau on 11-12-2024 Lymphocytes Auto (Unsp spec) [#/Vol] 1.97 10*3/uL 0.83-4.51 [facility] Absolute neutrophil countOrd ered By: Calvin Lizzeth on 11-12-2024 Neutrophils (Bld) [#/Vol] 5.4 10*3/uL 2.0-7.7 [facility] Anion gap in Serum or Plasma Ordered By: Albino Moreau on 11-12-2024 Anion gap [Moles/Vol] 11 mmol/L 5-15 [facility] Automated lymphocyte count a s percentage of total leukocytesOrdered By: Albino Moreau on 11-12-2024 Lymphocytes/100 WBC Auto (Unsp spec) 24.6 % 19-41 [facility] BUN/creatinine ratioOrdered By: Albino Moreau on 11-12-2024 Urea nitrogen/Creatinine [Mass ratio] 8.7 mg/mg Low 10-20 [facility] Basic Metabolic Profile (BMP )on 11-12-2024 BUN/CRE 8.7 RATIO Low 10-20 [facility] Comment on above: Performed By: #### L 100.0100, L500.2500, L501.5200 ####[facility] [address] [place], [address] Calcium [Mass/Vol] 8.4 mg/dL Normal 7.6-11.0 [facility] Comment on above: Performed By: #### L 100.0100, L500.2500, L501.5200 ####[facility] [address] [place], [address] Chloride [Moles/Vol] 114 mmol/L High 98-108 [facility] Comment on above: Performed By: #### L 100.0100, L500.2500, L501.5200 ####[facility] [address] [place], [address] CO2 [Moles/Vol] 13.1 mmol/L Low 21.0-32.0 [facility] Comment on above: Performed By: #### L 100.0100, L500.2500, L501.5200 ####[facility] [address] [place], [address] Creatinine [Mass/Vol] 2.29 mg/dL High 0.70-1.20 [facility] Comment on above: Performed By: #### L 100.0100, L500.2500, L501.5200 ####[facility] [address] [place], [address] GAP 11 Normal 5-15 [facility] Comment on above: Performed By: #### L 100.0100, L500.2500, L501.5200 ####[facility] [address] [place], [address] GFR/1.73 sq M.predicted among non-blacks MDRD (S/P/Bld) [Vol rate/Area] 22 mL/min/{1.73_m2} Low >60 [facility] Comment on above: Result Comment: mL/m in/1.73m2 CKD-EPI Creatinine Equation (2020) Performed By: #### L 100.0100, L500.2500, L501.5200 ####[facility] [address] [place], [address] Glucose [Mass/Vol] 114 mg/dL High 70-99 [facility] Comment on above: Performed By: #### L 100.0100, L500.2500, L501.5200 ####[facility] [address] [place], [address] Potassium [Moles/Vol] 3.8 mmol/L Normal 3.3-5.1 [facility] Comment on above: Performed By: #### L 100.0100, L500.2500, L501.5200 ####[facility] [address] [place], [address] Sodium [Moles/Vol] 138 mmol/L Normal 133-145 [facility] Comment on above: Performed By: #### L 100.0100, L500.2500, L501.5200 ####[facility] [address] [place], [address] Urea nitrogen [Mass/Vol] 20 mg/dL High 4-19 [facility] Comment on above: Performed By: #### L 100.0100, L500.2500, L501.5200 ####[facility] [address] [place], [address] Basophil percentageOrdered B y: Albino Moreau on 11-12-2024 Basophils/100 WBC (Bld) 0.7 % 0-1 [facility] Bilirubin directOrdered By: Brian Stone on 11-12-2024 Bilirubin.direct [Mass/Vol] 0.10 mg/dL 0.00-0.30 [facility] Bilirubin, totalOrdered By: Brian Stone on 11-12-2024 Bilirubin [Mass/Vol] 0.24 mg/dL 0.00-1.30 [facility] CBC W/Diff, Automatedon 11-02 Absolute Lymph 1.97 X10 3/uL Normal 0.83-4.51 [facility] Comment on above: Performed By: #### L 100.0100, L500.2500, L501.5200 ####[facility] [address] [place], [address] Absolute Neut 5.4 X10 3/uL Normal 2.0-7.7 [facility] Comment on above: Performed By: #### L 100.0100, L500.2500, L501.5200 ####[facility] [address] [place], [address] Basophils/100 WBC (Bld) 0.7 % Normal 0-1 [facility] Comment on above: Performed By: #### L 100.0100, L500.2500, L501.5200 ####[facility] [address] [place], [address] Eosinophils/100 WBC (Bld) 2.5 % Normal 0-5 [facility] Comment on above: Performed By: #### L 100.0100, L500.2500, L501.5200 ####[facility] [address] [place], [address] Erythrocyte distribution width (RBC) [Ratio] 14.8 % High 11.6-14.6 [facility] Comment on above: Performed By: #### L 100.0100, L500.2500, L501.5200 ####[facility] [address] [place], [address] Hematocrit (Bld) [Volume fraction] 28.6 % Low 37-47 [facility] Comment on above: Performed By: #### L 100.0100, L500.2500, L501.5200 ####[facility] [address] [place], [address] Hemoglobin (Bld) [Mass/Vol] 8.9 g/dL Low 12.0-15.0 [facility] Comment on above: Performed By: #### L 100.0100, L500.2500, L501.5200 ####[facility] [address] [place], [address] IG% 0.400 Normal 0.0-0.9 [facility] Comment on above: Result Comment: IG% - Immature Granulocytes (promyelocytes, myelocytes and metamyelocytes) > 1% indicates that a LEFT SHIFT is Present. Performed By: #### L 100.0100, L500.2500, L501.5200 ####[facility] [address] [place], [address] Lymphocytes/100 WBC (Bld) 24.6 % Normal 19-41 [facility] Comment on above: Performed By: #### L 100.0100, L500.2500, L501.5200 ####[facility] [address] [place], [address] MCH (RBC) [Entitic mass] 34.2 pg High 27.0-32.0 [facility] Comment on above: Performed By: #### L 100.0100, L500.2500, L501.5200 ####[facility] [address] [place], [address] MCHC (RBC) [Mass/Vol] 31.1 g/dL Low 32-36 [facility] Comment on above: Performed By: #### L 100.0100, L500.2500, L501.5200 ####[facility] [address] [place], [address] MCV (RBC) [Entitic vol] 110.0 fL High 81-99 [facility] Comment on above: Performed By: #### L 100.0100, L500.2500, L501.5200 ####[facility] [address] [place], [address] Monocytes/100 WBC (Bld) 4.7 % Normal 0-10 [facility] Comment on above: Performed By: #### L 100.0100, L500.2500, L501.5200 ####[facility] [address] [place], [address] Neutrophils/100 WBC (Bld) 67.1 % Normal 47-70 [facility] Comment on above: Performed By: #### L 100.0100, L500.2500, L501.5200 ####[facility] [address] [place], [address] Nucleated RBC (Bld) [#/Vol] 0 10*3/uL Normal 0-5 [facility] Comment on above: Performed By: #### L 100.0100, L500.2500, L501.5200 ####[facility] [address] [place], [address] Platelet mean volume (Bld) [Entitic vol] 9.9 fL Normal 6.2-12.0 [facility] Comment on above: Performed By: #### L 100.0100, L500.2500, L501.5200 ####[facility] [address] [place], [address] Platelets (Bld) [#/Vol] 210 10*3/uL Normal 150-450 [facility] Comment on above: Performed By: #### L 100.0100, L500.2500, L501.5200 ####[facility] [address] [place], [address] RBC (Bld) [#/Vol] 2.60 10*6/uL Low 4.2-5.4 [facility] Comment on above: Performed By: #### L 100.0100, L500.2500, L501.5200 ####[facility] [address] [place], [address] RDW SD 59.8 fl High 35.1-43.9 [facility] Comment on above: Performed By: #### L 100.0100, L500.2500, L501.5200 ####[facility] [address] [place], [address] WBC (Bld) [#/Vol] 8.0 10*3/uL Normal 4.4-11.0 [facility] Comment on above: Performed By: #### L 100.0100, L500.2500, L501.5200 ####[facility] [address] [place], [address] Calculated total iron bindin g capacityOrdered By: Brian Stone on 11-12-2024 Total Iron Binding Capacity 111 ug/dL Low 250-450 [facility] Carbon dioxide, total [Moles /volume] in Central venous bloodOrdered By: Albino Moreau on 11-12-2024 CO2 [Moles/Vol] 13.1 mmol/L Low 21.0-32.0 [facility] Cardiology Visit Reporton Cardiology Visit Report [facility] [address] [place], [place] [address] OFFICE VISIT Date of Service: 11/12/24 MR#: [id number] Acct: [id number] Name: LETTY MORENO Rep #: [id number] : 1950 Provider: Dr. Albino Moreau MD Age/Sex: 74/F Location[place] [facility] Status: Signed HPI HPI History of Present Illness Details: Pleasant 71-year-old lady who presents for her follow-up visit. She is long overdue for follow-up visit. She had presented with hematuria in 2018 was noted to have a filling defect in her bladder with hydronephrosis and retroperitoneal nodes. Biopsy demonstrated a urothelial carcinoma. She was treated with carboplatin and Gemzar and eventually underwent laparoscopic anterior exenteration with bilateral extended pelvic node dissection. She has had chronic diarrhea and has been left with significant hypomagnesemia and hypokalemia. She was admitted to the hospital in November of 2019 and at that time her natruretic peptide was normal. An echocardiogram performed then demonstrated an ejection fraction of 45% with some wall motion abnormalities a global longitudinal strain of 14% was noted. She was admitted to [facility] and had some evaluation and investigation regarding possible hydronephrosis. This appears to have resolved. Her medications have been changed. She did say that her in July 2024 and her last echocardiographic evaluation was in March 2023. She remains on a diuretic but she takes it every other day other than as needed. She has lost some weight she does have reduced appetite. She denies chest, arm, jaw, or neck discomfort. She denies palpitations. She denies bilateral lower extremity edema. She denies claudication. She denies shortness of breath with activity, shortness of breath at rest, orthopnea, or PND. She denies chronic cough. She denies significant, sudden weight gain. She states dizziness with quick position changes and describes this as the room is spinning. This is associated with nausea. She denies lightheadedness, near-syncope, or syncope. She denies blood in urine, blood in stool, or epistaxis. He denies fever or chills. She denies myalgia. . Intake Vital Signs 04/30/24 09:48 11/12/24 10:12 Height 4 ft 11 in 4 ft 11 in Weight: 210 lb 176 lb BMI 42.4 35.5 BP 140/72 H 126/79 H Blood Pressure Location Rt brachial Rt brachial Position Sitting Sitting Respiration 16 22 H Pulse 82 84 Pulse Source NIBP Monitor Temp 97.9 F 97.5 F L Temperature Source Temporal Artery Temporal Artery Pulse Oximetry (%) 95 100 Oxygen Delivery Method room air room air Intake Visit Reasons: 6 M FU Field Engineer Required: No Accompanied by: Self Is patient in pain?: Yes (Left shoulder pain since fall in hospital ) Pain scale (1-10): 4 Allergies Penicillins Allergy (Mild, Verified 11/12/24 10:09) rash ciprofloxacin (From Cipro) Adverse Reaction (Verified 11/12/24 10:09) Nausea/Vom/Diarrhea sulfamethoxazole (From Bactrim) Adverse Reaction (Verified 11/12/24 10:09) Nausea/Vom/Diarrhea trimethoprim (From Bactrim) Adverse Reaction (Verified 11/12/24 10:09) Nausea/Vom/Diarrhea Medications ???Medication ???Instructions ???Recorded ???Confirmed ???Type ondansetron HCl 4 mg tablet 4 mg PO DAILY 09/10/21 11/12/24 Hi story apixaban 5 mg tablet 5 mg PO DAILY 01/18/22 11/12/24 Hi story pantoprazole 40 mg tablet,delayed 40 mg PO DAILY 01/18/22 11/12/24 History release lidocaine-prilocaine 2.5 %-2.5 % 1 applic topical ONCE PRN port 11/12/24 Rx topical cream access 30 days #30 grams nystatin 100,000 unit/gram topical 1 applic topical ONCE #30 grams 05/06/22 11/12/24 Rx cream cholecalciferol (vitamin D3) 325 1,000 unit PO DAILY 02/14/2311/12 History mcg (13,000 unit) capsule dextroamphetamine sulfate 10 mg 20 mg PO BID 02/14/23 11/12/24 His tory tablet ipratropium 20 mcg-albuterol 100 1 puff inhalation .qid PRN 3 11/12/24 History mcg/actuation mist for inhalation (Combivent Respimat) polysaccharide iron complex 150 mg 350 mg PO BID 02/14/23 11/12/24 History iron capsule (Ferrex) furosemide 80 mg tablet (Lasix) 80 mg PO Q OTHER DAY #90 tabs 04/0511/12/24 Rx magnesium oxide 400 mg PO DAILY #90 caps 04/30/24 11/12/24 Rx Have you fallen in the past year?: Yes [facility] Medical History Cellulitis Primary osteoarthritis, left shoulder H/O carcinoma of bladder Dizziness Fatigue Port-A-Cath in place Uremia Hydronephrosis of left kidney Abdominal wall mass (03/20/20) Deep vein thrombosis, lower right extremity (03/20/20) Narcolepsy Non-ischemic cardiomyopathy Diarrhea Nausea vomiting Right bundle branch block (RBBB) w (more content not included)... Normal [facility] Chloride assayOrdered By: Dre Moreau on 11-12-2024 Chloride [Moles/Vol] 114 mmol/L High 98-108 [facility] Eosinophil percentageOrdered By: Albino Moreau on 11-12-2024 Eosinophils/100 WBC (Bld) 2.5 % 0-5 [facility] Erythrocyte distribution wid th (RBC) [Ratio]Ordered By: Albino Moreau on 11-12-2024 Erythrocyte distribution width (RBC) [Entitic vol] 59.8 fL High 35.1-43.9 [facility] Erythrocyte distribution wid th ratioOrdered By: Albino Moreau on 11-12-2024 Erythrocyte distribution width (RBC) [Ratio] 14.8 % High 11.6-14.6 [facility] Erythrocyte distribution wid th standard deviationOrdered By: Albino Moreau on 11-12-2024 Erythrocyte distribution width (RBC) [Ratio] 59.8 fl High 35.1-43.9 [facility] GFR/1.73 sq M.predicted bambi g non-blacks MDRD (S/P/Bld) [Vol rate/Area]Ordered By: Albino Moreau on 11-12-2024 Estimated GFR (MDRD) Non-Af Amer 22 Low >60 [facility] Comment on above: mL/min/1.73m2 CKD-EP I Creatinine Equation (2020) Gamma glutamyl transferase ( GGT) measurementOrdered By: Albino Moreau on 11-12-2024 Amylase [Catalytic activity/Vol] 11 U/L 0-60 [facility] Comment on above: Performed at: [address] [id number] Director: Gildardo Vu PhD, Phone: [phone] Glomerular filtration rate ( GFR) estimation/1.73 sq m using serum, plasma, or whole bOrdered By: Albino Moreau on 11-12-2024 GFR/1.73 sq M.predicted among non-blacks MDRD (S/P/Bld) [Vol rate/Area] 22 mL/min/{1.73_m2} Low >60 [facility] Comment on above: mL/min/1.73m2 CKD-EP I Creatinine Equation (2020) Hematocrit Auto (Bld) [Volum e fraction]Ordered By: Albino Moreau on 11-12-2024 Hematocrit (Bld) [Volume fraction] 28.6 % Low 37-47 [facility] Hemoglobin measurementOrdere d By: Albino Moreau on 11-12-2024 Hemoglobin (Bld) [Mass/Vol] 8.9 g/dL Low 12.0-15.0 [facility] Immature granulocytes/100 WB C Auto (Bld)Ordered By: Albino Moreau on 11-12-2024 Immature granulocytes/100 WBC (Bld) 0.400 % 0.0-0.9 [facility] Comment on above: IG% - Immature Granu locytes (promyelocytes, myelocytes and metamyelocytes) > 1% indicates that a LEFT SHIFT is Present. Iron (Unsp spec) [Mass/Mass] Ordered By: Brian Stone on 11-12-2024 Iron [Mass/Vol] 53 ug/dL 50-170 [facility] Iron measurement (mass/mass) Ordered By: Brian Stone on 11-12-2024 Iron (Unsp spec) [Mass/Mass] 53 ug/dL 50-170 [facility] Iron saturation [Mass fracti on]Ordered By: Brian Stone on 11-12-2024 Iron Saturation 47.0 % 13-59 [facility] Comment on above: Previous reported re sult: 47.0 %Edited by: JAEL on 11/15/24:1854 Laboratory - Chemistry and C hemistry - challengeOrdered By: Brian Stone on 11-12-2024 AST [Catalytic activity/Vol] 15 U/L <32 [facility] Lymphocytes Auto (Unsp spec) [#/Vol]Ordered By: Albino Moreau on 11-12-2024 Lymphocytes (Bld) [#/Vol] 1.97 10*3/uL 0.83-4.51 [facility] Lymphocytes/100 WBC Auto (Un sp spec)Ordered By: Albino Lizzeth on 11-12-2024 Lymphocytes/100 WBC (Bld) 24.6 % 19-41 [facility] MCV (mean corpuscular volume ) determinationOrdered By: Calvin Lizzeth on 11-12-2024 MCV (RBC) [Entitic vol] 110.0 fL High 81-99 [facility] Magnesiumon 11-12-2024 Magnesium [Mass/Vol] 1.6 mg/dL Normal 1.5-2.2 [facility] Comment on above: Performed By: #### L 100.0100, L500.2500, L501.5200 ####[facility] [address] [place], [address] Magnesium (Unsp spec) [Mass/ Vol]Ordered By: Calvin Lizzeth on 11-12-2024 Magnesium [Mass/Vol] 1.6 mg/dL 1.5-2.2 [facility] Magnesium measurement (mass/ volume)Ordered By: Albino Lizzeth on 11-12-2024 Magnesium (Unsp spec) [Mass/Vol] 1.6 mg/dL 1.5-2.2 [facility] Mean corpuscular hemoglobin (MCH) determinationOrdered By: Calvin Lizzeth on 11-12-2024 MCH (RBC) [Entitic mass] 34.2 pg High 27.0-32.0 [facility] Mean corpuscular hemoglobin concentration (MCHC) determinationOrdered By: Calvin Lizzeth on 11-12-2024 MCHC (RBC) [Mass/Vol] 31.1 g/dL Low 32-36 [facility] Mean platelet volume determi nationOrdered By: Calvin Lizzeth on 11-12-2024 Platelet mean volume (Bld) [Entitic vol] 9.9 fL 6.2-12.0 [facility] Monocyte percentageOrdered B y: Albino Lizzeth on 11-12-2024 Monocytes/100 WBC (Bld) 4.7 % 0-10 [facility] Neutrophil percentageOrdered By: Calvin Lizzeth on 11-12-2024 Neutrophils/100 WBC (Bld) 67.1 % 47-70 [facility] No Panel InformationOrdered By: Brian Stone on 11-12-2024 Unsaturated Iron Binding Capacity 59 ug/dL Low 228-428 [facility] Nucleated red blood cell per centageOrdered By: Albino Lizzeth on 11-12-2024 Nucleated RBC/100 WBC (Bld) [Ratio] 0 % 0-5 [facility] Platelet countOrdered By: Cy ril Lizzeth on 11-12-2024 Platelets (Bld) [#/Vol] 210 10*3/uL 150-450 [facility] Potassium (Unsp spec) [Mass/ Vol]Ordered By: Albino Lizzeth on 11-12-2024 Potassium [Moles/Vol] 3.8 mmol/L 3.3-5.1 [facility] Potassium measurement (mass/ volume)Ordered By: Albinokyle Moreau on 11-12-2024 Potassium (Unsp spec) [Mass/Vol] 3.8 mmol/L 3.3-5.1 [facility] RBC Auto (Bld) [#/Vol]Ordere d By: Calvin Lizzeth on 11-12-2024 RBC (Bld) [#/Vol] 2.60 10*6/uL Low 4.2-5.4 [facility] Serum creatinine measurement (mass/volume)Ordered By: Calvin Lizzeth on 11-12-2024 Creatinine [Mass/Vol] 2.29 mg/dL High 0.70-1.20 [facility] Serum globulin measurementOr dered By: Brian Stone on 11-12-2024 Globulin (S) [Mass/Vol] 3.9 g/dL 2.2-4.2 [facility] Serum glucose measurement (m ass/volume)Ordered By: Albino Moreau on 11-12-2024 Glucose [Mass/Vol] 114 mg/dL High 70-99 [facility] Serum or plasma alanine العراقي otransferase (ALT) measurementOrdered By: Brian Stone on 11-12-2024 ALT [Catalytic activity/Vol] 5 U/L <35 [facility] Serum or plasma albumin chito urement (mass/volume)Ordered By: Brian Stone on 11-12-2024 Albumin [Mass/Vol] 2.9 g/dL Low 3.4-4.8 [facility] Serum or plasma albumin/glob ulin mass ratioOrdered By: Brian Stone on 11-12-2024 Albumin/Globulin [Mass ratio] 0.8 {ratio} Low 0.9-2.4 [facility] Serum or plasma alkaline mariusz sphatase measurementOrdered By: Albino Moreau on 11-12-2024 ALP [Catalytic activity/Vol] 132 U/L High 35-104 [facility] Serum or plasma calcium chito urement (mass/volume)Ordered By: Albino Moreau on 11-12-2024 Calcium [Mass/Vol] 8.4 mg/dL 7.6-11.0 [facility] Serum or plasma ferritin francesco surement (mass/volume)Ordered By: Brian Stone on 11-12-2024 Ferritin [Mass/Vol] 397 ng/mL High 22-378 [facility] Serum or plasma iron saturat ion measurement (mass fraction)Ordered By: Brina Stone on 11-12-2024 Iron saturation [Mass fraction] 47.0 % 13-59 [facility] Comment on above: Previous reported re sult: 47.0 %Edited by: JAEL on 11/15/24:1854 Serum or plasma non-glucuron idated bilirubin measurement (mass/volume)Ordered By: Brian Stone on 11-12-2024 Bilirubin.indirect [Mass/Vol] 0.14 mg/dL 0.00-1.00 [facility] Serum or plasma urea nitroge n measurement (mass/volume)Ordered By: Albino Moreau on 11-12-2024 Urea nitrogen [Mass/Vol] 20 mg/dL High 4-19 [facility] Sodium levelOrdered By: Beronica Moreau on 11-12-2024 Sodium [Moles/Vol] 138 mmol/L 133-145 [facility] Total proteinOrdered By: Stevie Stone on 11-12-2024 Protein [Mass/Vol] 6.8 g/dL 5.9-8.4 [facility] Vitamin B12 ser/plasOrdered By: Brian Stone on 11-12-2024 Cobalamin (Vitamin B12) [Mass/Vol] 360 pg/mL 180-914 [facility] White blood cell (WBC) count Ordered By: Albino Moreau on 11-12-2024 WBC (Bld) [#/Vol] 8.0 10*3/uL 4.4-11.0 [facility] CNOVon 07-23-2024 CNOV Office Visit (UCWSTR ) LETTY MORENO ([id number]) 1950 F Date Time Provider Department 07/23/24 1:30 PM NAIN HERNANDEZ WSTR During your visit today, we recorded the following information about you: Temperature Pulse Respiration Blood pressure 97.7 degrees 81/minute 26/minute 114/65 Weight 88 kg Nain Hernandez PA-C 07/23/2024 7:42 PM Signed This note was created using [employer]. Subjective Letty Dao Nicole Trevino is a 73 year old female. Patient is a 73-year-old female who complains of worsening congestion and cough that she has been experiencing for approximately the past 4 days. Patient denies sinus pressure, ear pain or sore throat. Patient reports no fever, chills or myalgia but states that she has ongoing weakness secondary to her anemia and comorbid conditions. Patient denies dyspnea but does report increased episodes of shortness of breath primarily with exertion. Patient does have COPD and has an approximate 35-dcne-ecfl history of tobacco use. Patient does not use home oxygen. Patient does have a history of cardiomyopathy as well as transitional cell carcinoma of the bladder and states that she does have a Mediport in place although she has completed chemotherapy and is no longer receiving any type of treatment with the exception of periodic potassium infusions for hypokalemia. Cough Associated symptoms include shortness of breath and wheezing. Review of Systems Respiratory: Positive for cough, shortness of breath and wheezing. All other systems reviewed and are negative. Objective BP 114/65 Pulse 81 Temp 36.5 ?C (97.7 ?F) Resp 26 Wt 88 kg (194 lb 0.1 oz) SpO2 97% BMI 39.18 kg/m? Physical Exam Vitals and nursing note reviewed. Constitutional: Appearance: Normal appearance. She is normal weight. HENT: Head: Normocephalic and atraumatic. Right Ear: Tympanic membrane, ear canal and external ear normal. Left Ear: Tympanic membrane, ear canal and external ear normal. Nose: Nose normal. Mouth/Throat: Mouth: Mucous membranes are moist. Pharynx: Oropharynx is clear. Eyes: Extraocular Movements: Extraocular movements intact. Conjunctiva/sclera: Conjunctivae normal. Pupils: Pupils are equal, round, and reactive to light. Cardiovascular: Rate and Rhythm: Normal rate and regular rhythm. Pulses: Normal pulses. Heart sounds: Normal heart sounds. Pulmonary: Effort: Pulmonary effort is normal. Breath sounds: Wheezing and rhonchi present. Musculoskeletal: Cervical back: Normal range of motion and neck supple. Skin: General: Skin is warm and dry. Capillary Refill: Capillary refill takes less than 2 seconds. Neurological: General: No focal deficit present. Mental Status: She is alert and oriented to person, place, and time. Psychiatric: Mood and Affect: Mood normal. Behavior: Behavior normal. Thought Content: Thought content normal. Judgment: Judgment normal. Assessment and Plan Physical exam findings as noted above. Patient was immediately advised that she requires evaluation in an emergency department as she will likely require hospital admission and IV antibiotics. Patient adamantly refuses to go to an emergency department as she has multiple comorbid conditions and reports previous multiple bad experiences while in emergency departments. Patient does agree to chest x-ray which was obtained. Radiologist reports questionable patchy opacities in the lung bases. Although the patient does demonstrate a pulse oximeter saturation of 97% on room air, she does present with significant rhonchi and wheezing. Patient was informed of the radiologist findings and again strongly advised that she requires evaluation in an emergency department. The patient again forcefully refuses to go to an emergency department. Patient was provided with prescriptions for doxycycline 100 mg and prednisone 20 mg as she does have pneumonia that requires treatment in some form. Patient's daughter is also being seen at this facility for similar symptoms by another provider. I did contact the patient's daughter to inform her that the patient requires evaluation in an emergency department and likely hospital admission. I did not provide details of the patient's medical condition and did not violate HIPAA in my conversation with the patient's daughter. Patient's daughter states that she herself did want to take the patient to an emergency department as opposed to [facility], however the patient adamantly refused to be taken to an emergency department. Daughter states that she is in complete agreement that the patient appears quite ill and states that it was not her decision to bring the patient to this location. Daughter also reports that the patient's last week and she has noted increasing depression as well as lack of motivation to (more content not included)... Normal [facility] CNPNon 07-23-2024 CNPN Telephone (OLMAN) LETTY MORENO ([id number]) 1950 F Date Time Provider Department 07/23/24 DALLAS YIN During your visit today, we recorded the following information about you: Dallas Yin MSW 07/23/2024 2:56 PM Signed Sw called patient/daughter to discuss patient care needs. Daughter notes patient is not feeling well and asks Sw to call them back on Friday, 07/26. Sw will try call then. Dallas Yin MSW 07/26/2024 11:03 AM Signed Sw called back and patient daughter notes that patient does not want to speak with Sw. Patient daughter notes that patient spouse recently and daughter and brother are working on cleaning up home. This Sw noted if patient and or daughter would like to speak with SW in the future to be aware that Sw is available. Allergies As of Date: 07/23/2024 Noted Allergy Reaction BACTRIM (SULFAMETHOXAZOLE-TRIME TH*03/20/2020 8 - GI Upset CIPROFLOXACIN 11/03/2019 11 - Vomiting PENICILLIN G 09/22/2019 2 - Rash Date Reviewed: 07/23/2024 Reviewed by: Rosemary Mireles LPN - Fully Assessed Prescriptions as of 07/26/2024 - Dextroamphetamine Sulfate 10 mg tablet Take 10 mg by mouth two times a day. - COMBIVENT RESPIMAT 20-100 mcg/actuation inhaler 1 Puff every 6 hours as needed for wheezing/shortness of breath. - doxycycline (VIBRA-TABS) 100 mg tablet Take 1 tablet by mouth two times a day for 10 days. - predniSONE (DELTASONE) 20 mg tablet Take 1 tablet by mouth two times a day for 5 days. - ondansetron (ZOFRAN) 4 mg tablet Take 1 tablet by mouth every afternoon. - pantoprazole DR (PROTONIX) 40 mg tablet Take 1 tablet by mouth every afternoon. - cholecalciferol, vitamin D3, 325 mcg (13,000 unit) cap Take by mouth. - mirtazapine (REMERON) 15 mg tablet Take 1 tablet by mouth daily at bedtime. - apixaban (ELIQUIS) 5 mg tab(s) Take 1 tablet by mouth twice daily. Take 2 tablets twice daily till 03/31 and then take 1 tablet twice daily - folic acid 1 mg tablet Take 1 tablet by mouth once daily. - melatonin 3 mg tablet Take 1 tablet by mouth at bedtime as needed (insomnia). - spironolactone (ALDACTONE) 25 mg tablet Take 25 mg by mouth twice daily. - traMADol (ULTRAM) 50 mg tablet Take 50 mg by mouth daily at bedtime. - loperamide (IMODIUM) 2 mg cap(s) Take 2 mg by mouth four times daily as needed for Diarrhea. - furosemide (LASIX) 20 mg tablet Take 1 tablet by mouth once daily. For 3 days to decrease fluid. Repeat in one month - Miscellaneous [facility] Ile[facility] conduit/urostomy supplies: 1 box of Coloplast no-sting barrier film wipes (Ref #[id number]). 1 box of Coloplast no-sting adhesive remover (Ref #[id number]). 1 bottle of Coloplast stoma powder (Ref #[id number]). 1 tube of Coloplast stoma paste (Ref #[id number]). 1 box of Coloplast small rings (Ref #[id number]). 2 boxes of Coloplast Red flex flat cut-to-fit (Ref #[id number]). 1 box of Coloplast Red Urostomy clear pouches (Ref #[id number]). 1 Box of Coloplast Brava Elastic barrier strips (ref#[id number]). - zolpidem (AMBIEN) 5 mg tablet Take 1 tablet by mouth at bedtime as needed for up to 5 days. for insomnia. - imipramine HCl (TOFRANIL) 10 mg tablet Take 1 tablet by mouth daily at bedtime. - ALBUTEROL INHALATION Inhale 1 Inhalation as instructed as needed. Problem List As Of Date 07/23/2024 Noted Resolved Bladder cancer (HCC) [C67.9] 10/13/2019 Obesity, Class II, BMI 35-39.9 [E66.812] 10/14/2019 Abdominal wall abscess [L02.211] 03/21/2020 03/25/2020 Encounter Status:Closed by DALLAS YIN on 07/26/[address] [facility] XR CHEST 2V FRONTAL/LATon XR CHEST 2V FRONTAL/LAT * * *Final Repor t* * * DATE OF EXAM: Jul 23 2024 2:21PM WOX 5291 - XR CHEST 2V FRONTAL/LAT / PROCEDURE REASON: Acute cough * * * * Physician Interpretation * * * * EXAMINATION: CHEST RADIOGRAPH (2 VIEW FRONTAL and LATERAL) CLINICAL HISTORY: Acute cough MQ: XC2_6 EXAM DATE/TIME: 07/23/2024 2:21 PM COMPARISON: Chest x-ray on 10/07/2019 RESULT: Lines, tubes, and devices: No change in position of right chest port catheter. Lungs and pleura: Questionable patchy opacities in the lower lung on lateral view. No lung mass. No pleural effusion. No pneumothorax. Cardiomediastinal silhouette: Normal cardiomediastinal silhouette. Bones and soft tissues: The spine shows exaggerated kyphosis and degenerative changes. IMPRESSION: Questionable patchy opacities in the lower lung. Consider follow-up. Projector Booth Operator: PSCB Transcribe Date/Time: Jul 23 2024 2:22P Dictated by : CARI QUINTANILLA MD This examination was interpreted and the report reviewed and electronically signed by: CARI QUINTANILLA MD on Jul 23 2024 2:24PM EST [id number] Normal [facility] XR Chest PA and Lateralon IMPRESSION: Questionable patchy opacities in the lower lung. Consider follow-up. Projector Booth Operator: LAKEISHA Transcribe Date/Time: Jul 23 2024 2:22P Dictated by : CARI QUINTANILLA MD This examination was interpreted and the report reviewed and electronically signed by: CARI QUINTANILLA MD on Jul 23 2024 2:24PM [facility] DIVISION OF RADIOLOGY * * *Final Report* * * DATE OF EXAM: Jul 23 2024 2:21PM WOX 5291 - XR CHEST 2V FRONTAL/LAT / PROCEDURE REASON: Acute cough * * * * Physician Interpretation * * * * EXAMINATION: CHEST RADIOGRAPH (2 VIEW FRONTAL & LATERAL) CLINICAL HISTORY: Acute cough MQ: XC2_6 EXAM DATE/TIME: 07/23/2024 2:21 PM COMPARISON: Chest x-ray on 10/07/2019 RESULT: Lines, tubes, and devices: No change in position of right chest port catheter. Lungs and pleura: Questionable patchy opacities in the lower lung on lateral view. No lung mass. No pleural effusion. No pneumothorax. Cardiomediastinal silhouette: Normal cardiomediastinal silhouette. Bones and soft tissues: The spine shows exaggerated kyphosis and degenerative changes. DIVISION OF RADIOLOGY Provider, [facility] - 07/23/2024 * * *Final Report* * * DATE OF EXAM: Jul 23 2024 2:21PM WOX 5291 - XR CHEST 2V FRONTAL/LAT / PROCEDURE REASON: Acute cough * * * * Physician Interpretation * * * * EXAMINATION: CHEST RADIOGRAPH (2 VIEW FRONTAL & LATERAL) CLINICAL HISTORY: Acute cough MQ: XC2_6 EXAM DATE/TIME: 07/23/2024 2:21 PM COMPARISON: Chest x-ray on 10/07/2019 RESULT: Lines, tubes, and devices: No change in position of right chest port catheter. Lungs and pleura: Questionable patchy opacities in the lower lung on lateral view. No lung mass. No pleural effusion. No pneumothorax. Cardiomediastinal silhouette: Normal cardiomediastinal silhouette. Bones and soft tissues: The spine shows exaggerated kyphosis and degenerative changes. IMPRESSION IMPRESSION: Questionable patchy opacities in the lower lung. Consider follow-up. Projector Booth Operator: LAKEISHA Transcribe Date/Time: Jul 23 2024 2:22P Dictated by : CARI QUINTANILLA MD This examination was interpreted and the report reviewed and electronically signed by: CARI QUINTANILLA MD on Jul 23 2024 2:24PM EST [facility] Radiology Study observation (narrative) [facility] XR Chest PA and LateralOrder ed By: Ccf Provider on 07-23-2024 [facility] Cardiology Visit Reporton Cardiology Visit Report [facility] [address] [place] [address] OFFICE VISIT Date of Service: 04/30/24 MR#: [id number] Acct: [id number] Name: LETTY MORENO Rep #: [id number] : 1950 Provider: Dr. Albino Moreau MD Age/Sex: 73/F [place] [facility] Status: Signed HPI HPI History of Present Illness Details: Pleasant 71-year-old lady who presents for her follow-up visit. She had presented with hematuria in 2018 was noted to have a filling defect in her bladder with hydronephrosis and retroperitoneal nodes. Biopsy demonstrated a urothelial carcinoma. She was treated with carboplatin and Gemzar and eventually underwent laparoscopic anterior exenteration with bilateral extended pelvic node dissection. She has had chronic diarrhea and has been left with significant hypomagnesemia and hypokalemia. She was admitted to the hospital in November of 2019 and at that time her natruretic peptide was normal. An echocardiogram performed then demonstrated an ejection fraction of 45% with some wall motion abnormalities a global longitudinal strain of 14% was noted. She subsequently presented in December 2019 and was noted to have a minimally abnormal troponin, a natruretic peptide of 998 and significant pedal edema, and anemia and hypokalemia. She was placed on lisinopril as well as Lasix and has had dizziness and her hypokalemia has been worse. She has not been able to tolerate oral or IV potassium infusions. She apparently did have an EKG which demonstrates sinus rhythm with a right bundle branch block and left anterior fascicular block. Due to persistent hypokalemia she was sent to the echometer engineer because of nausea and vomiting. She was placed on antifungal medications and this appears to have improved. She has had intermittent urinary tract infections but these have been treated. She was admitted to [facility] and had some evaluation and investigation regarding possible hydronephrosis. She is currently off of all her medications including ERIBERTO inhibitor and diuretic. There has also been a diminishing in her pedal edema. She did have some abnormalities noted on her creatinine function but this appears to have improved. At her last visit she was started on a statin as well as some low-dose Coreg therapy but she did not tolerate this went to the emergency room and these were discontinued. She has unfortunately been on once a day Eliquis with no recent evidence of DVT or PE. She denies chest, arm, jaw, or neck discomfort. She denies palpitations. She denies bilateral lower extremity edema. She denies claudication. She denies shortness of breath with activity, shortness of breath at rest, orthopnea, or PND. She denies chronic cough. She denies significant, sudden weight gain. She states dizziness with quick position changes and describes this as the room is spinning. This is associated with nausea. She denies lightheadedness, near-syncope, or syncope. She denies blood in urine, blood in stool, or epistaxis. He denies fever or chills. She denies myalgia. She has had significant increase in her pedal edema and her weight has gradually gone up 10 pounds. She has also had some episodes of cellulitis. She expresses ongoing fatigue. Intake Vital Signs 08/15/23 10:49 04/30/24 09:48 Height 4 ft 11 in 4 ft 11 in Weight: 210 lb BMI 42.4 BP 140/72 H Blood Pressure Location Rt brachial Position Sitting Respiration 16 Pulse 82 Pulse Source NIBP Temp 97.9 F Temperature Source Temporal Artery Pulse Oximetry (%) 95 Oxygen Delivery Method room air Intake Visit Reasons: 6 M FU Field Engineer Required: No Is patient in pain?: No Allergies Penicillins Allergy (Mild, Verified 04/30/24 09:43) rash ciprofloxacin (From Cipro) Adverse Reaction (Verified 04/30/24 09:43) Nausea/Vom/Diarrhea sulfamethoxazole (From Bactrim) Adverse Reaction (Verified 04/30/24 09:43) Nausea/Vom/Diarrhea trimethoprim (From Bactrim) Adverse Reaction (Verified 04/30/24 09:43) Nausea/Vom/Diarrhea Medications ???Medication ???Instructions ???Recorded ???Confirmed ???Type ondansetron HCl 4 mg tablet 4 mg PO DAILY 09/10/21 08/15/23 History apixaban 5 mg tablet 5 mg PO DAILY 01/18/22 08/15/23 History pantoprazole 40 mg tablet,delayed 40 mg PO DAILY 01/18/22 08/15/23 History release lidocaine-prilocaine 2.5 %-2.5 % 1 applic topical ONCE PRN port 01/21/22 08/15/23 Rx topical cream access 30 days #30 grams nystatin 100,000 unit/gram topical 1 applic topical ONCE #30 grams 05/06/22 08/15/23 Rx cream cholecalciferol (vitamin D3) 325 1,000 unit PO DAILY 02/14/23 08/15/23 History mcg (13,000 unit) capsule dextroamphetamine sulfate 10 mg 20 mg PO BID 02/14/23 08/15/23 History tablet ipratropium 20 mcg-albuterol 100 1 puff inhalation .q (more content not included)... Normal [facility] Basophil percentageOrdered B y: Lucy Zepeda on 12-01-2023 Basophil percentage 3.4 mg/dL 2.5-4.9 [facility] Chloride [Moles/Vol] 111 mmol/L 98-107 [facility] Glucose [Mass/Vol] 116 mg/dL 74-106 [facility] Comment on above: Fasting Glucose resu lt from 100 to 125 mg/dL suggests IMPAIRED HOMEOSTASIS per A.D.A. criteria. Hemoglobin (Bld) [Mass/Vol] 9.5 g/dL 12.0-15.0 [facility] Potassium [Moles/Vol] 4.9 mmol/L 3.5-5.1 [facility] Sodium [Moles/Vol] 140 mmol/L 136-145 [facility] WBC (Bld) [#/Vol] 7.0 10*3/uL 4.4-11.0 [facility] Determination of erythrocyte mean corpuscular volume (MCV)Ordered By: Lucy Zepeda on 12-01-2023 MCV (RBC) [Entitic vol] 100.0 fL 81-99 [facility] Erythrocyte distribution wid th ratioOrdered By: Lucy Zepeda on 12-01-2023 Erythrocyte distribution width (RBC) [Ratio] 15.4 % 11.6-14.6 [facility] Erythrocyte distribution wid th standard deviationOrdered By: Lucy Zepeda on 12-01-2023 Erythrocyte distribution width (RBC) [Entitic vol] 55.3 fL 35.1-43.9 [facility] Hematocrit Auto (Bld) [Volum e fraction]Ordered By: Lucy Zepeda on 12-01-2023 Hematocrit (Bld) [Volume fraction] 31.3 % 37-47 [facility] - Chemistry and C hemistry - challengeOrdered By: Lucy Zepeda on 12-01-2023 CO2 [Moles/Vol] 25.0 mmol/L 21.0-32.0 [facility] Urea nitrogen/Creatinine [Mass ratio] 9.9 mg/mg 10-20 [facility] - Hematology and Cell countsOrdered By: Lucy Zepeda on 12-01-2023 MCH (RBC) [Entitic mass] 30.4 pg 27.0-32.0 [facility] MCHC (RBC) [Mass/Vol] 30.4 g/dL 32-36 [facility] Platelet mean volume (Bld) [Entitic vol] 9.4 fL 6.2-12.0 [facility] Platelets (Bld) [#/Vol] 215 10*3/uL 150-450 [facility] No Panel InformationOrdered By: Lucy Zepeda on 12-01-2023 Estimated GFR (MDRD) Amer 24 mL/min >60 [facility] Comment on above: GFR Calc Estimated GFR (MDRD) Non-Af Amer 20 mL/min >60 [facility] Comment on above: Non- GFR Calc Parathyroid Hormone (Intact) 326.0 pg/mL 18.4-80.1 [facility] Vitamin D 25-Hydroxy 37.3 ng/mL [facility] Comment on above: Vitamin D 25(OH) Sta tus Range Deficiency <20 ng/mL (50nmol/L) Insufficiency 20 - 30 ng/mL (50 - 75 nmol/L) Sufficiency 30 - 100 ng/mL (75 - 250 nmol/L) Toxicity >100 ng/mL (>250 nmol/L) RBC Auto (Bld) [#/Vol]Ordere d By: Lucy Zepeda on 12-01-2023 RBC (Bld) [#/Vol] 3.13 10*6/uL 4.2-5.4 [facility] Serum or plasma calcium chito urement (mass/volume)Ordered By: Lucy Zepeda on 12-01-2023 Calcium [Mass/Vol] 8.7 mg/dL 8.5-10.1 [facility] Serum or plasma creatinine m easurement (mass/volume)Ordered By: Lucy Zepeda on 12-01-2023 Creatinine [Mass/Vol] 2.53 mg/dL 0.55-1.02 [facility] Comment on above: The validity of the calculated GFR & GFRAA in patients over 70 years has not been determined. Clinical correlation is essential. Serum or plasma urea nitroge n measurement (mass/volume)Ordered By: Lucy Zepeda on 12-01-2023 Urea nitrogen [Mass/Vol] 25 mg/dL 7-18 [facility] Thin prep Papanicolaou smear with manual screeningOrdered By: Lucy Zepeda on 12-01-2023 Thin prep Papanicolaou smear with manual screening 2.6 g/dL 3.2-5.0 [facility] Basophil percentageOrdered B y: Lucy Zepeda on 10-14-2023 Basophil percentage 3.6 mg/dL 2.5-4.9 [facility] Bilirubin [Mass/Vol] 0.20 mg/dL 0.20-1.00 [facility] Comment on above: For patients on eltr ombopag therapy, use of Dimension Daisy TBIL is not recommended. Chloride [Moles/Vol] 114 mmol/L 98-107 [facility] Glucose [Mass/Vol] 104 mg/dL 74-106 [facility] Comment on above: Fasting Glucose resu lt from 100 to 125 mg/dL suggests IMPAIRED HOMEOSTASIS per A.D.A. criteria. Potassium [Moles/Vol] 4.4 mmol/L 3.5-5.1 [facility] Protein [Mass/Vol] 7.3 g/dL 6.4-8.2 [facility] Sodium [Moles/Vol] 141 mmol/L 136-145 [facility] - Chemistry and C hemistry - challengeOrdered By: Lucy Zepeda on 10-14-2023 Albumin/Globulin [Mass ratio] 0.5 {ratio} 0.9-2.4 [facility] ALP [Catalytic activity/Vol] 111 U/L 45-117 [facility] ALT [Catalytic activity/Vol] 8 U/L 13-56 [facility] CO2 [Moles/Vol] 24.0 mmol/L 21.0-32.0 [facility] [facility] Globulin (S) [Mass/Vol] 4.8 g/dL 2.2-4.2 [facility] Urea nitrogen/Creatinine [Mass ratio] 7.8 mg/mg 10-20 [facility] No Panel InformationOrdered By: Lucy Zepeda on 10-14-2023 Estimated GFR (MDRD) Amer 25 mL/min >60 [facility] Comment on above: GFR Calc Estimated GFR (MDRD) Non-Af Amer 21 mL/min >60 [facility] Comment on above: Non- GFR Calc Parathyroid Hormone (Intact) 240.7 pg/mL 18.4-80.1 [facility] Vitamin D 25-Hydroxy 34.0 ng/mL [facility] Comment on above: Vitamin D 25(OH) Sta tus Range Deficiency <20 ng/mL (50nmol/L) Insufficiency 20 - 30 ng/mL (50 - 75 nmol/L) Sufficiency 30 - 100 ng/mL (75 - 250 nmol/L) Toxicity >100 ng/mL (>250 nmol/L) Serum or plasma calcium chito urement (mass/volume)Ordered By: Lucy Zepeda on 10-14-2023 Calcium [Mass/Vol] 8.6 mg/dL 8.5-10.1 [facility] Serum or plasma creatinine m easurement (mass/volume)Ordered By: Lucy Zepeda on 10-14-2023 Creatinine [Mass/Vol] 2.43 mg/dL 0.55-1.02 [facility] Comment on above: The validity of the calculated GFR & GFRAA in patients over 70 years has not been determined. Clinical correlation is essential. Serum or plasma urea nitroge n measurement (mass/volume)Ordered By: Lucy Zepeda on 10-14-2023 Urea nitrogen [Mass/Vol] 19 mg/dL 7-18 [facility] Thin prep Papanicolaou smear with manual screeningOrdered By: Lucy Zepeda on 10-14-2023 Thin prep Papanicolaou smear with manual screening 2.5 g/dL 3.2-5.0 [facility] Thin prep Papanicolaou smear with manual screening 17 U/L 15-37 [facility] Thin prep Papanicolaou smear with manual screening 3 5-15 [facility] CNPNon 09-01-2023 [facility] Telephone ([facility]) LETTY MORENO ([id number]) 1950 F Date Time Provider Department 09/01/[address] [facility] During your visit today, we recorded the following information about you: Lali Aguirre APRN.COMPLIANCE ENGINEER 09/01/2023 9:36 AM Signed Attempted to reach out and inform patient that her wound culture reveals bacterial growth. Wanted to reach out and discuss; + wound culture Are her sx improving? Continue taking ATB F/U with PCP VM message left to return call. If no answer, please try again morning of 09/02/23 Rosemary Mireles LPN 09/03/2023 9:39 AM Signed Attempted to reach out to pt. No answer on 3 different lines. LARRY Adam Brandi, LPN 09/04/2023 8:57 AM Signed Left message on [employer] phone for patient to return call. Called several Numbers and all were wrong Rosemary Mireles LPN Updated #'s Radha Olsen RN 09/04/2023 10:30 AM Signed Patient notified of results and provider's instructions. Patient verbalizes understanding. Radha Olsen RN Allergies As of Date: 09/01/2023 Noted Allergy Reaction BACTRIM (SULFAMETHOXAZOLE-TRIME TH*03/20/2020 8 - GI Upset CIPROFLOXACIN 11/03/2019 11 - Vomiting PENICILLIN G 09/22/2019 2 - Rash Date Reviewed: 08/28/2023 Reviewed by: Susan Andrade LPN - Fully Assessed Reason for Visit: Results [95] Prescriptions as of 09/04/2023 - ondansetron (ZOFRAN) 4 mg tablet Take 1 tablet by mouth every afternoon. - pantoprazole DR (PROTONIX) 40 mg tablet Take 1 tablet by mouth every afternoon. - cholecalciferol, vitamin D3, 325 mcg (13,000 unit) cap Take by mouth. - doxycycline monohydrate 100 mg tablet Take 1 tablet by mouth two times a day for 7 days. - mirtazapine (REMERON) 15 mg tablet Take 1 tablet by mouth daily at bedtime. - apixaban (ELIQUIS) 5 mg tab(s) Take 1 tablet by mouth twice daily. Take 2 tablets twice daily till 03/31 and then take 1 tablet twice daily - folic acid 1 mg tablet Take 1 tablet by mouth once daily. - melatonin 3 mg tablet Take 1 tablet by mouth at bedtime as needed (insomnia). - spironolactone (ALDACTONE) 25 mg tablet Take 25 mg by mouth twice daily. - traMADol (ULTRAM) 50 mg tablet Take 50 mg by mouth daily at bedtime. - loperamide (IMODIUM) 2 mg cap(s) Take 2 mg by mouth four times daily as needed for Diarrhea. - furosemide (LASIX) 20 mg tablet Take 1 tablet by mouth once daily. For 3 days to decrease fluid. Repeat in one month - Miscellaneous Medical Supply [facility] Ileal conduit/urostomy supplies: 1 box of Coloplast no-sting barrier film wipes (Ref #[id number]). 1 box of Coloplast no-sting adhesive remover (Ref #[id number]). 1 bottle of Coloplast stoma powder (Ref #[id number]). 1 tube of Coloplast stoma paste (Ref #[id number]). 1 box of Coloplast small rings (Ref #[id number]). 2 boxes of Coloplast Red flex flat cut-to-fit (Ref #[id number]). 1 box of Coloplast Red Urostomy clear pouches (Ref #[id number]). 1 Box of Coloplast Brava Elastic barrier strips (ref#[id number]). - zolpidem (AMBIEN) 5 mg tablet Take 1 tablet by mouth at bedtime as needed for up to 5 days. for insomnia. - imipramine HCl (TOFRANIL) 10 mg tablet Take 1 tablet by mouth daily at bedtime. - ALBUTEROL INHALATION Inhale 1 Inhalation as instructed as needed. - dextroamphetamine-amphe tamine (ADDERALL) 5 mg tablet Take 5 mg by mouth three times daily. Problem List As Of Date 09/01/2023 Noted Resolved Bladder cancer (HCC) [C67.9] 10/13/2019 Obesity, Class II, BMI 35-39.9 [E66.9] 10/14/2019 Abdominal wall abscess [L02.211] 03/21/2020 03/25/2020 Encounter Status:Closed by RADHA OLSEN on 09/04/23 [facility] Bacteria Wnd Culton 08-28-19 Bacteria identified Cx Nom (Wound) ORGANISM ID: 1 Many Enterococcus faecalis Cephalosporins, clindamycin, and TMP-SMX are not effective for the treatment of enterococcal infections. ORGANISM ID: 2 Many Staphylococcus epidermidis GRAM STAIN: Rare Gram positive cocci No Polymorphonuclear Leukocytes ORGANISM ID: 1 (ENTEROCOCCUS FAECALIS) ANTIBIOTIC INTERPRETATION SARANYA STATUS REFERENCE RANGE Ampicillin S <=2 F Susceptible <=8 , Resistant >8 Vancomycin S 2 F Susceptible <=4 , Intermediate >4 , Resistant >16 ORGANISM ID: 2 (STAPHYLOCOCCUS EPIDERMIDIS) ANTIBIOTIC INTERPRETATION SARANYA STATUS REFERENCE RANGE Oxacillin S <=0.25 F Susceptible <=0.25 , Resistant >.25 Oxacillin-susceptible staphylococci are susceptible to other penicilllinase-stable penicillins, beta-lactam/beta-lactam ase inhibitor combinations, anti-staphylococcal cephems, and carbapenems. Gentamicin S <=0.5 F Susceptible <=4 , Intermediate >4 , Resistant >8 Erythromycin R >=8 F Susceptible <=0.5 , Intermediate >.5 , Resistant >4 Clindamycin S 0.25 F Susceptible <=0.5 , Intermediate >.5 , Resistant >2 Testing for inducible clindamycin resistance was performed. Trimeth sulfameth S <=10 F Susceptible <=40 , Resistant >40 Vancomycin S 2 F Susceptible <=4 , Intermediate >4 , Resistant >16 Rifampin S <=0.5 F Susceptible <=1 , Intermediate >1 , Resistant >2 Rifampin should not be used alone for antimicrobial therapy. Levofloxacin R 4 F Susceptible <=1 , Intermediate >1 , Resistant >2 Tetracycline S <=1 F Susceptible <=4 , Intermediate >4 , Resistant >8 Doxycycline S 1 F Susceptible <=4 , Intermediate >4 , Resistant >[address] [facility] Comment on above: Performed By: #### [id number] #### [facility] CLIA [id number] [address] [place] [address] [place] CNOVon 08-28-2023 CNOV Office Visit (UCWSTR ) RAYMONDMONICO BELINDALETTY Feliberto ([id number]) 1950 F Date Time Provider Department 08/28/23 6:15 PM LALI AGUIRRE WS During your visit today, we recorded the following information about you: Temperature Pulse Respiration Blood pressure 97.7 degrees 92/minute 18/minute 148/78 Weight 91.6 kg Lali Aguirre APRN.COMPLIANCE ENGINEER 08/28/2023 7:28 PM Signed This note was created using NoteWriter. Subjective Letty Dao Bernarddocmonico Belinda is a 72 year old female. 72 year old female with PMH of CKD, CHF, DVTs on Eliquis, and bladder cancer presents today for acute onset left lower leg swelling for 4 days. Pertinent positives include bilateral lower leg swelling L>R, redness, weeping, and left leg discomfort. Pertinent negatives include fever, chills, body aches and shortness of breath. She states both legs have been swollen for weeks and was just referred to a herd tester by her oncologist. She cut the left leg on a copper tea pot a week ago. She saw a nephrology INTEGRATED [employer] IC LAYOUT DESIGNER yesterday via telehealth for the BLE edema who prescribed her 80 mg of furosemide and told her to come get the left leg looked at. She just picked up the medication today and has not started taking it. She endorses that she has been compliant with Eliqius. The history is provided by the patient. No automotive shop foreman was used. Edema This is a new problem. The current episode started 1 to 4 weeks ago. The problem occurs constantly. The problem has been gradually worsening. Pertinent negatives include no anorexia, arthralgias, chest pain, chills, fatigue, fever, headaches, myalgias or rash. Nothing aggravates the symptoms. Treatments tried: topical antibiotic ointment and dressing with tape. The treatment provided no relief. 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 pantoprazole DR (PROTONIX) 40 mg tablet Take 1 tablet by mouth every afternoon. cholecalciferol, vitamin D3, 325 mcg (13,000 unit) cap Take by mouth. apixaban (ELIQUIS) 5 mg tab(s) Take 1 tablet by mouth twice daily. Take 2 tablets twice daily till 03/31 and then take 1 tablet twice daily loperamide (IMODIUM) 2 mg cap(s) Take 2 mg by mouth four times daily as needed for Diarrhea. ALBUTEROL INHALATION Inhale 1 Inhalation as instructed as needed. dextroamphetamine-amphe tamine (ADDERALL) 5 mg tablet Take 5 mg by mouth three times daily. doxycycline monohydrate 100 mg tablet Take 1 tablet by mouth two times a day for 7 days. mirtazapine (REMERON) 15 mg tablet Take 1 tablet by mouth daily at bedtime. (Patient not taking: Reported on 08/28/2023) folic acid 1 mg tablet Take 1 tablet by mouth once daily. (Patient not taking: Reported on 08/28/2023) melatonin 3 mg tablet Take 1 tablet by mouth at bedtime as needed (insomnia). (Patient not taking: Reported on 08/28/2023) spironolactone (ALDACTONE) 25 mg tablet Take 25 mg by mouth twice daily. (Patient not taking: Reported on 08/28/2023) traMADol (ULTRAM) 50 mg tablet Take 50 mg by mouth daily at bedtime. (Patient not taking: Reported on 08/28/2023) furosemide (LASIX) 20 mg tablet Take 1 tablet by mouth once daily. For 3 days to decrease fluid. Repeat in one month (Patient not taking: Reported on 03/20/2020 ) Miscellaneous Medical Supply misc Ileal conduit/urostomy supplies: 1 box of Coloplast no-sting barrier film wipes (Ref #[id number]). 1 box of Coloplast no-sting adhesive remover (Ref #[id number]). 1 bottle of Coloplast stoma powder (Ref #83772). 1 tube of Coloplast stoma paste (Ref #2650). 1 box of Coloplast small rings (Ref #732098). 2 boxes of Coloplast Red flex flat cut-to-fit (Ref #[id number]). 1 box of Coloplast Red Urostomy clear pouches (Ref #36065). 1 Box of Coloplast Brava Elastic barrier strips (ref#[id number]). zolpidem (AMBIEN) 5 mg tablet Take 1 tablet by mouth at bedtime as needed for up to 5 days. for insomnia. (Patient not taking: Reported on 03/20/2020) imipramine HCl (TOFRANIL) 10 mg tablet Take 1 tablet by mouth daily at bedtime. FAMILY HISTORY Problem Relation Age of Onset Cancer Mother breast liver Social History Tobacco Use Smoking status: Light Smoker Smokeless tobacco: Ne (more content not included)... Normal [facility] Basophil percentageOrdered B y: Bridgette Ashley on 08-20-2023 Basophil percentage 3.2 mg/dL 2.5-4.9 [facility] Chloride [Moles/Vol] 114 mmol/L 98-107 [facility] Glucose [Mass/Vol] 104 mg/dL 74-106 [facility] Comment on above: Fasting Glucose resu lt from 100 to 125 mg/dL suggests IMPAIRED HOMEOSTASIS per A.D.A. criteria. Hemoglobin (Bld) [Mass/Vol] 10.4 g/dL 12.0-15.0 [facility] Potassium [Moles/Vol] 4.2 mmol/L 3.5-5.1 [facility] Sodium [Moles/Vol] 140 mmol/L 136-145 [facility] WBC (Bld) [#/Vol] 7.6 10*3/uL 4.4-11.0 [facility] Determination of erythrocyte mean corpuscular volume (MCV)Ordered By: Bridgette Ramirez on 08-20-2023 MCV (RBC) [Entitic vol] 102.1 fL 81-99 [facility] Erythrocyte distribution wid th ratioOrdered By: Bridgette Ramirez on 08-20-2023 Erythrocyte distribution width (RBC) [Ratio] 15.8 % 11.6-14.6 [facility] Erythrocyte distribution wid th standard deviationOrdered By: Bridgette Ramirez on 08-20-2023 Erythrocyte distribution width (RBC) [Entitic vol] 59.6 fL 35.1-43.9 [facility] Hematocrit Auto (Bld) [Volum e fraction]Ordered By: Bridgette Ramirez on 08-20-2023 Hematocrit (Bld) [Volume fraction] 34.1 % 37-47 [facility] Intact parathyroid hormone ( iPTH) measurementOrdered By: Bridgette Ramirez on 08-20-2023 Parathyrin.intact (Tissue fine needle aspirate) [Mass/Vol] 178.9 pg/mL 18.4-80.1 [facility] - Chemistry and C hemistry - challengeOrdered By: Bridgette Ramirez on 08-20-2023 CO2 [Moles/Vol] 20.0 mmol/L 21.0-32.0 [facility] Urea nitrogen/Creatinine [Mass ratio] 8.6 mg/mg 10-20 [facility] - Hematology and Cell countsOrdered By: Bridgette Ramirez on 08-20-2023 MCH (RBC) [Entitic mass] 31.1 pg 27.0-32.0 [facility] MCHC (RBC) [Mass/Vol] 30.5 g/dL 32-36 [facility] Platelets (Bld) [#/Vol] 233 10*3/uL 150-450 [facility] No Panel InformationOrdered By: Bridgette Ramirez on 08-20-2023 Estimated GFR (MDRD) Amer 23 mL/min >60 [facility] Comment on above: GFR Calc Estimated GFR (MDRD) Non-Af Amer 19 mL/min >60 [facility] Comment on above: Non- GFR Calc Vitamin D 25-Hydroxy 48.0 ng/mL [facility] Comment on above: Vitamin D 25(OH) Sta tus Range Deficiency <20 ng/mL (50nmol/L) Insufficiency 20 - 30 ng/mL (50 - 75 nmol/L) Sufficiency 30 - 100 ng/mL (75 - 250 nmol/L) Toxicity >100 ng/mL (>250 nmol/L) Platelet mean volume Kasi-Ec ker (Bld) [Entitic vol]Ordered By: Bridgette Ramirez on 08-20-2023 Platelet mean volume (Bld) [Entitic vol] 9.5 fL 6.2-12.0 [facility] RBC Auto (Bld) [#/Vol]Ordere d By: Bridgette Ramirez on 08-20-2023 RBC (Bld) [#/Vol] 3.34 10*6/uL 4.2-5.4 [facility] Serum or plasma calcium chito urement (mass/volume)Ordered By: Bridgette Ramirez on 08-20-2023 Calcium [Mass/Vol] 8.9 mg/dL 8.5-10.1 [facility] Serum or plasma creatinine m easurement (mass/volume)Ordered By: Bridgette Ramirez on 08-20-2023 Creatinine [Mass/Vol] 2.66 mg/dL 0.55-1.02 [facility] Comment on above: The validity of the calculated GFR & GFRAA in patients over 70 years has not been determined. Clinical correlation is essential. Serum or plasma urea nitroge n measurement (mass/volume)Ordered By: Bridgette Ramirez on 08-20-2023 Urea nitrogen [Mass/Vol] 23 mg/dL 7-18 [facility] Thin prep Papanicolaou smear with manual screeningOrdered By: Bridgette Ramirez on 08-20-2023 Thin prep Papanicolaou smear with manual screening 2.4 g/dL 3.2-5.0 [facility] Absolute lymphocyte countOrd ered By: Brian Stone on 06-04-2023 Lymphocytes Auto (Unsp spec) [#/Vol] 2.48 10*3/uL 0.83-4.51 [facility] Basophil percentageOrdered B y: Brian Stone on 06-04-2023 Basophils/100 WBC (Bld) 0.8 % 0-1 [facility] Bilirubin [Mass/Vol] 0.20 mg/dL 0.20-1.00 [facility] Comment on above: For patients on eltr ombopag therapy, use of Dimension Daisy TBIL is not recommended. Chloride [Moles/Vol] 113 mmol/L 98-107 [facility] Eosinophils/100 WBC (Bld) 3.4 % 0-5 [facility] Glucose [Mass/Vol] 131 mg/dL 74-106 [facility] Comment on above: Fasting Glucose resu lt greater than or equal to 126 mg/dL suggests DIABETES MELLITUS per A.D.A. criteria. LDH [Catalytic activity/Vol] 121 U/L 84-246 [facility] Neutrophils (Bld) [#/Vol] 3.4 10*3/uL 2.0-7.7 [facility] Neutrophils/100 WBC (Bld) 51.6 % 47-70 [facility] Potassium [Moles/Vol] 4.0 mmol/L 3.5-5.1 [facility] Protein [Mass/Vol] 7.1 g/dL 6.4-8.2 [facility] Sodium [Moles/Vol] 141 mmol/L 136-145 [facility] WBC (Bld) [#/Vol] 6.5 10*3/uL 4.4-11.0 [facility] Blood erythrocytes count (nu mber/volume)Ordered By: Brian Stone on 06-04-2023 RBC (Bld) [#/Vol] 3.35 10*6/uL 4.2-5.4 [facility] Blood hemoglobin measurement (mass/volume)Ordered By: Brian Stone on 06-04-2023 Hemoglobin (Bld) [Mass/Vol] 10.1 g/dL 12.0-15.0 [facility] Blood lymphocytes/100 leukoc ytesOrdered By: Brian Stone on 06-04-2023 Lymphocytes/100 WBC (Bld) 37.9 % 19-41 [facility] Blood monocytes/100 leukocyt esOrdered By: Brian Stone on 06-04-2023 Monocytes/100 WBC (Bld) 6.1 % 0-10 [facility] Blood platelet mean volumeOr dered By: Brian Stone on 06-04-2023 Platelet mean volume (Bld) [Entitic vol] 8.7 fL 6.2-12.0 [facility] Determination of erythrocyte mean corpuscular volume (MCV)Ordered By: Brian Stone on 06-04-2023 MCV (RBC) [Entitic vol] 100.0 fL 81-99 [facility] Hematocrit Auto (Bld) [Volum e fraction]Ordered By: Brian Stone on 06-04-2023 Hematocrit (Bld) [Volume fraction] 33.5 % 37-47 [facility] Iron measurement (mass/mass) Ordered By: Brian Stone on 06-04-2023 Iron (Unsp spec) [Mass/Mass] 39 ug/dL 50-170 [facility] - Chemistry and C hemistry - challengeOrdered By: Brian Stone on 06-04-2023 ALP [Catalytic activity/Vol] 111 U/L 45-117 [facility] ALT [Catalytic activity/Vol] 10 U/L 13-56 [facility] CO2 [Moles/Vol] 20.0 mmol/L 21.0-32.0 [facility] Globulin (S) [Mass/Vol] 4.6 g/dL 2.2-4.2 [facility] Urea nitrogen/Creatinine [Mass ratio] 7.7 mg/mg 10-20 [facility] - Hematology and Cell countsOrdered By: Brian Stone on 06-04-2023 Erythrocyte distribution width (RBC) [Entitic vol] 59.0 fL 35.1-43.9 [facility] Erythrocyte distribution width (RBC) [Ratio] 15.9 % 11.6-14.6 [facility] Immature granulocytes/100 WBC (Bld) 0.200 % 0.0-0.9 [facility] Comment on above: IG% - Immature Granu locytes (promyelocytes, myelocytes and metamyelocytes) > 1% indicates that a LEFT SHIFT is Present. MCH (RBC) [Entitic mass] 30.1 pg 27.0-32.0 [facility] Nucleated RBC/100 WBC (Bld) [Ratio] 0 % 0-5 [facility] MCHC Auto (RBC) [Mass/Vol]Or dered By: Brian Stone on 06-04-2023 MCHC (RBC) [Mass/Vol] 30.1 g/dL 32-36 [facility] No Panel InformationOrdered By: Brian Stone on 06-04-2023 Estimated Creatinine Clearance Calc 23.25 ml/min [facility] Estimated GFR (MDRD) Amer 19 mL/min Low >60 [facility] Comment on above: GFR Calc Estimated GFR (MDRD) Non-Af Amer 16 mL/min >60 [facility] Comment on above: Non- GFR Calc Total Iron Binding Capacity 147 ug/dL Low 250-450 [facility] Platelets bldOrdered By: Stevie Stone on 06-04-2023 Platelets (Bld) [#/Vol] 220 10*3/uL 150-450 [facility] Serum or plasma albumin chito urement (mass/volume)Ordered By: Brian Stone on 06-04-2023 Albumin [Mass/Vol] 2.5 g/dL 3.2-5.0 [facility] Serum or plasma albumin/glob ulin mass ratioOrdered By: Brian Stone on 06-04-2023 Albumin/Globulin [Mass ratio] 0.5 {ratio} 0.9-2.4 [facility] Serum or plasma calcium chito urement (mass/volume)Ordered By: Brian Stone on 06-04-2023 Calcium [Mass/Vol] 8.1 mg/dL 8.5-10.1 [facility] Serum or plasma creatinine m easurement (mass/volume)Ordered By: Brian Stone on 06-04-2023 Creatinine [Mass/Vol] 3.11 mg/dL 0.55-1.02 [facility] Comment on above: The validity of the calculated GFR & GFRAA in patients over 70 years has not been determined. Clinical correlation is essential. Serum or plasma ferritin francesco surement (mass/volume)Ordered By: Brian Stone on 06-04-2023 Ferritin [Mass/Vol] 241 ng/mL 8-252 [facility] Serum or plasma iron saturat ion measurement (mass fraction)Ordered By: Brian Stone on 06-04-2023 Iron saturation [Mass fraction] 26.5 % 15.0-55.0 [facility] Serum or plasma urea nitroge n measurement (mass/volume)Ordered By: Brian Stone on 06-04-2023 Urea nitrogen [Mass/Vol] 24 mg/dL 7-18 [facility] Thin prep Papanicolaou smear with manual screeningOrdered By: Brian Stone on 06-04-2023 Thin prep Papanicolaou smear with manual screening 10 U/L 15-37 [facility] Thin prep Papanicolaou smear with manual screening 8 5-15 [facility] Absolute lymphocyte countOrd ered By: Dr. Stone on 11-21-2022 Lymphocytes Auto (Unsp spec) [#/Vol] 0.91 10*3/uL 0.83-4.51 [facility] Basophil percentageOrdered B y: Dr. Stone on 11-21-2022 Basophils/100 WBC (Bld) 0.3 % 0-1 [facility] Bilirubin [Mass/Vol] 0.20 mg/dL 0.20-1.00 [facility] Comment on above: For patients on eltr ombopag therapy, use of Dimension Daisy TBIL is not recommended. Chloride [Moles/Vol] 114 mmol/L 98-107 [facility] Eosinophils/100 WBC (Bld) 0.8 % 0-5 [facility] Glucose [Mass/Vol] 128 mg/dL 74-106 [facility] Comment on above: Fasting Glucose resu lt greater than or equal to 126 mg/dL suggests DIABETES MELLITUS per A.D.A. criteria. LDH [Catalytic activity/Vol] 125 U/L 84-246 [facility] Neutrophils (Bld) [#/Vol] 7.9 10*3/uL 2.0-7.7 [facility] Neutrophils/100 WBC (Bld) 85.7 % 47-70 [facility] Potassium [Moles/Vol] 4.2 mmol/L 3.5-5.1 [facility] Protein [Mass/Vol] 8.0 g/dL 6.4-8.2 [facility] Sodium [Moles/Vol] 138 mmol/L 136-145 [facility] WBC (Bld) [#/Vol] 9.3 10*3/uL 4.4-11.0 [facility] Blood erythrocytes count (nu mber/volume)Ordered By: Dr. Stone on 11-21-2022 RBC (Bld) [#/Vol] 3.42 10*6/uL 4.2-5.4 [facility] Blood hemoglobin measurement (mass/volume)Ordered By: Dr. Stone on 11-21-2022 Hemoglobin (Bld) [Mass/Vol] 10.2 g/dL 12.0-15.0 [facility] Blood lymphocytes/100 leukoc ytesOrdered By: Dr. Stone on 11-21-2022 Lymphocytes/100 WBC (Bld) 9.8 % 19-41 [facility] Blood monocytes/100 leukocyt esOrdered By: Dr. Stone on 11-21-2022 Monocytes/100 WBC (Bld) 2.9 % 0-10 [facility] Blood platelet mean volumeOr dered By: Dr. Stone on 11-21-2022 Platelet mean volume (Bld) [Entitic vol] 8.9 fL 6.2-12.0 [facility] Determination of erythrocyte mean corpuscular volume (MCV)Ordered By: Dr. Stone on 11-21-2022 MCV (RBC) [Entitic vol] 98.2 fL 81-99 [facility] Hematocrit Auto (Bld) [Volum e fraction]Ordered By: Dr. Stone on 11-21-2022 Hematocrit (Bld) [Volume fraction] 33.6 % 37-47 [facility] Iron measurement (mass/mass) Ordered By: Dr. Stone on 11-21-2022 Iron (Unsp spec) [Mass/Mass] 39 ug/dL 50-170 [facility] - Chemistry and C hemistry - challengeOrdered By: Dr. Stone on 11-21-2022 ALP [Catalytic activity/Vol] 96 U/L 45-117 [facility] ALT [Catalytic activity/Vol] 12 U/L 13-56 [facility] CO2 [Moles/Vol] 19.0 mmol/L 21.0-32.0 [facility] Globulin (S) [Mass/Vol] 4.9 g/dL 2.2-4.2 [facility] Urea nitrogen/Creatinine [Mass ratio] 14.8 mg/mg 10-20 [facility] Laboratory - Chemistry and C hemistry - challengeOrdered By: Eddy Butterfield on 11-21-2022 Natriuretic peptide B (Bld) [Mass/Vol] 45.1 pg/mL 0-100 [facility] - Hematology and Cell countsOrdered By: Dr. Stone on 11-21-2022 Erythrocyte distribution width (RBC) [Entitic vol] 56.4 fL 35.1-43.9 [facility] Erythrocyte distribution width (RBC) [Ratio] 15.7 % 11.6-14.6 [facility] Immature granulocytes/100 WBC (Bld) 0.500 % 0.0-0.9 [facility] Comment on above: IG% - Immature Granu locytes (promyelocytes, myelocytes and metamyelocytes) > 1% indicates that a LEFT SHIFT is Present. MCH (RBC) [Entitic mass] 29.8 pg 27.0-32.0 [facility] Nucleated RBC/100 WBC (Bld) [Ratio] 0 % 0-5 [facility] MCHC Auto (RBC) [Mass/Vol]Or dered By: Dr. Stone on 11-21-2022 MCHC (RBC) [Mass/Vol] 30.4 g/dL 32-36 [facility] No Panel InformationOrdered By: Dr. Stone on 11-21-2022 Estimated Creatinine Clearance Calc 23.59 ml/min [facility] Estimated GFR (MDRD) Amer 24 mL/min >60 [facility] Comment on above: GFR Calc Estimated GFR (MDRD) Non-Af Amer 20 mL/min >60 [facility] Comment on above: Non- GFR Calc Total Iron Binding Capacity 176 ug/dL 250-450 [facility] Platelets bldOrdered By: Dr. Stone on 11-21-2022 Platelets (Bld) [#/Vol] 188 10*3/uL 150-450 [facility] Serum or plasma albumin chito urement (mass/volume)Ordered By: Dr. Stone on 11-21-2022 Albumin [Mass/Vol] 3.1 g/dL 3.2-5.0 [facility] Serum or plasma albumin/glob ulin mass ratioOrdered By: Dr. Stone on 11-21-2022 Albumin/Globulin [Mass ratio] 0.6 {ratio} 0.9-2.4 [facility] Serum or plasma calcium chito urement (mass/volume)Ordered By: Dr. Stone on 11-21-2022 Calcium [Mass/Vol] 9.0 mg/dL 8.5-10.1 [facility] Serum or plasma creatinine m easurement (mass/volume)Ordered By: Dr. Stone on 11-21-2022 Creatinine [Mass/Vol] 2.56 mg/dL 0.55-1.02 [facility] Comment on above: The validity of the calculated GFR & GFRAA in patients over 70 years has not been determined. Clinical correlation is essential. Serum or plasma ferritin francesco surement (mass/volume)Ordered By: Dr. Stone on 11-21-2022 Ferritin [Mass/Vol] 225 ng/mL 8-252 [facility] Serum or plasma iron saturat ion measurement (mass fraction)Ordered By: Dr. Stone on 11-21-2022 Iron saturation [Mass fraction] 22.2 % 15.0-55.0 [facility] Serum or plasma urea nitroge n measurement (mass/volume)Ordered By: Dr. Stone on 11-21-2022 Urea nitrogen [Mass/Vol] 38 mg/dL 7-18 [facility] Thin prep Papanicolaou smear with manual screeningOrdered By: Dr. Stone on 11-21-2022 Thin prep Papanicolaou smear with manual screening 11 U/L 15-37 [facility] Thin prep Papanicolaou smear with manual screening 5 5-15 [facility] Absolute lymphocyte countOrd ered By: Todd Delgado on 09-26-2022 Lymphocytes Auto (Unsp spec) [#/Vol] 1.56 10*3/uL 0.83-4.51 [facility] Basophil percentageOrdered B y: Todd Delgado on 09-26-2022 Basophils/100 WBC (Bld) 0.8 % 0-1 [facility] Chloride [Moles/Vol] 124 mmol/L 98-107 [facility] Eosinophils/100 WBC (Bld) 4.0 % 0-5 [facility] Glucose [Mass/Vol] 95 mg/dL 74-106 [facility] Neutrophils (Bld) [#/Vol] 6.6 10*3/uL 2.0-7.7 [facility] Neutrophils/100 WBC (Bld) 71.9 % 47-70 [facility] Potassium [Moles/Vol] 3.3 mmol/L 3.5-5.1 [facility] Sodium [Moles/Vol] 148 mmol/L 136-145 [facility] WBC (Bld) [#/Vol] 9.2 10*3/uL 4.4-11.0 [facility] Blood erythrocytes count (nu mber/volume)Ordered By: Todd Delgado on 09-26-2022 RBC (Bld) [#/Vol] 3.70 10*6/uL 4.2-5.4 [facility] Blood hemoglobin measurement (mass/volume)Ordered By: Todd Delgado on 09-26-2022 Hemoglobin (Bld) [Mass/Vol] 10.8 g/dL 12.0-15.0 [facility] Blood lymphocytes/100 leukoc ytesOrdered By: Todd Delgado on 09-26-2022 Lymphocytes/100 WBC (Bld) 16.9 % 19-41 [facility] Blood monocytes/100 leukocyt esOrdered By: Todd Delgado on 09-26-2022 Monocytes/100 WBC (Bld) 6.1 % 0-10 [facility] Blood platelet mean volumeOr dered By: Todd Delgado on 09-26-2022 Platelet mean volume (Bld) [Entitic vol] 8.6 fL 6.2-12.0 [facility] Determination of erythrocyte mean corpuscular volume (MCV)Ordered By: Todd Delgado on 09-26-2022 MCV (RBC) [Entitic vol] 94.9 fL 81-99 [facility] Hematocrit Auto (Bld) [Volum e fraction]Ordered By: Todd Delgado on 09-26-2022 Hematocrit (Bld) [Volume fraction] 35.1 % 37-47 [facility] - Chemistry and C hemistry - challengeOrdered By: Todd Delgado on 09-26-2022 CO2 [Moles/Vol] 20.0 mmol/L 21.0-32.0 [facility] Magnesium [Mass/Vol] 1.2 mg/dL 1.6-2.6 [facility] Urea nitrogen/Creatinine [Mass ratio] 18.8 mg/mg 10-20 [facility] - Hematology and Cell countsOrdered By: Todd Delgado on 09-26-2022 Erythrocyte distribution width (RBC) [Entitic vol] 55.4 fL 35.1-43.9 [facility] Erythrocyte distribution width (RBC) [Ratio] 15.9 % 11.6-14.6 [facility] Immature granulocytes/100 WBC (Bld) 0.300 % 0.0-0.9 [facility] Comment on above: IG% - Immature Granu locytes (promyelocytes, myelocytes and metamyelocytes) > 1% indicates that a LEFT SHIFT is Present. MCH (RBC) [Entitic mass] 29.2 pg 27.0-32.0 [facility] Nucleated RBC/100 WBC (Bld) [Ratio] 0 % 0-5 [facility] MCHC Auto (RBC) [Mass/Vol]Or dered By: Todd Delgado on 09-26-2022 MCHC (RBC) [Mass/Vol] 30.8 g/dL 32-36 [facility] No Panel InformationOrdered By: Todd Delgado on 09-26-2022 Estimated Creatinine Clearance Calc 40.67 ml/min [facility] Estimated GFR (MDRD) Amer 43 mL/min >60 [facility] Comment on above: GFR Calc Estimated GFR (MDRD) Non-Af Amer 35 mL/min >60 [facility] Comment on above: Non- GFR Calc Platelets bldOrdered By: Luis Delgado on 09-26-2022 Platelets (Bld) [#/Vol] 158 10*3/uL 150-450 [facility] Serum or plasma calcium chito urement (mass/volume)Ordered By: Todd Delgado on 09-26-2022 Calcium [Mass/Vol] 6.3 mg/dL 8.5-10.1 [facility] Comment on above: Critical Result(s) C alled at: 07:57:52 09/26/2022 by: Jose Alejandro RN (ER). Results read back by same. Serum or plasma creatinine m easurement (mass/volume)Ordered By: Todd Delgado on 09-26-2022 Creatinine [Mass/Vol] 1.54 mg/dL 0.55-1.02 [facility] Comment on above: The validity of the calculated GFR & GFRAA in patients over 70 years has not been determined. Clinical correlation is essential. Serum or plasma urea nitroge n measurement (mass/volume)Ordered By: Todd Delgado on 09-26-2022 Urea nitrogen [Mass/Vol] 29 mg/dL 7-18 [facility] Thin prep Papanicolaou smear with manual screeningOrdered By: Todd Delgado on 09-26-2022 Thin prep Papanicolaou smear with manual screening 4 5-15 [facility] Absolute lymphocyte countOrd ered By: Dr. Stone on 08-15-2022 Lymphocytes Auto (Unsp spec) [#/Vol] 1.96 10*3/uL 0.83-4.51 [facility] Basophil percentageOrdered B y: Dr. Stone on 08-15-2022 Basophils/100 WBC (Bld) 1.0 % 0-1 [facility] Bilirubin [Mass/Vol] 0.20 mg/dL 0.20-1.00 [facility] Comment on above: For patients on eltr ombopag therapy, use of Dimension Daisy TBIL is not recommended. Chloride [Moles/Vol] 109 mmol/L 98-107 [facility] Eosinophils/100 WBC (Bld) 3.1 % 0-5 [facility] Glucose [Mass/Vol] 103 mg/dL 74-106 [facility] Comment on above: Fasting Glucose resu lt from 100 to 125 mg/dL suggests IMPAIRED HOMEOSTASIS per A.D.A. criteria. LDH [Catalytic activity/Vol] 118 U/L 84-246 [facility] Neutrophils (Bld) [#/Vol] 4.2 10*3/uL 2.0-7.7 [facility] Neutrophils/100 WBC (Bld) 61.4 % 47-70 [facility] Potassium [Moles/Vol] 4.7 mmol/L 3.5-5.1 [facility] Protein [Mass/Vol] 8.4 g/dL 6.4-8.2 [facility] Sodium [Moles/Vol] 137 mmol/L 136-145 [facility] WBC (Bld) [#/Vol] 6.8 10*3/uL 4.4-11.0 [facility] Blood erythrocytes count (nu mber/volume)Ordered By: Dr. Stone on 08-15-2022 RBC (Bld) [#/Vol] 3.57 10*6/uL 4.2-5.4 [facility] Blood hemoglobin measurement (mass/volume)Ordered By: Dr. Stone on 08-15-2022 Hemoglobin (Bld) [Mass/Vol] 10.0 g/dL 12.0-15.0 [facility] Blood lymphocytes/100 leukoc ytesOrdered By: Dr. Stone on 08-15-2022 Lymphocytes/100 WBC (Bld) 28.7 % 19-41 [facility] Blood monocytes/100 leukocyt esOrdered By: Dr. Stone on 08-15-2022 Monocytes/100 WBC (Bld) 5.4 % 0-10 [facility] Blood platelet mean volumeOr dered By: Dr. Stoen on 08-15-2022 Platelet mean volume (Bld) [Entitic vol] 9.4 fL 6.2-12.0 [facility] Determination of erythrocyte mean corpuscular volume (MCV)Ordered By: Dr. Stone on 08-15-2022 MCV (RBC) [Entitic vol] 91.0 fL 81-99 [facility] Hematocrit Auto (Bld) [Volum e fraction]Ordered By: Dr. Stone on 08-15-2022 Hematocrit (Bld) [Volume fraction] 32.5 % 37-47 [facility] Iron measurement (mass/mass) Ordered By: Dr. Stone on 08-15-2022 Iron (Unsp spec) [Mass/Mass] 43 ug/dL 50-170 [facility] - Chemistry and C hemistry - challengeOrdered By: Dr. Stone on 08-15-2022 ALP [Catalytic activity/Vol] 84 U/L 45-117 [facility] ALT [Catalytic activity/Vol] 10 U/L 13-56 [facility] CO2 [Moles/Vol] 25.0 mmol/L 21.0-32.0 [facility] Cobalamin (Vitamin B12) [Mass/Vol] 363 pg/mL 211-911 [facility] Globulin (S) [Mass/Vol] 5.2 g/dL 2.2-4.2 [facility] Urea nitrogen/Creatinine [Mass ratio] 13.1 mg/mg 10-20 [facility] - Hematology and Cell countsOrdered By: Dr. Stone on 08-15-2022 Erythrocyte distribution width (RBC) [Entitic vol] 49.0 fL 35.1-43.9 [facility] Erythrocyte distribution width (RBC) [Ratio] 14.6 % 11.6-14.6 [facility] Immature granulocytes/100 WBC (Bld) 0.400 % 0.0-0.9 [facility] Comment on above: IG% - Immature Granu locytes (promyelocytes, myelocytes and metamyelocytes) > 1% indicates that a LEFT SHIFT is Present. MCH (RBC) [Entitic mass] 28.0 pg 27.0-32.0 [facility] Nucleated RBC/100 WBC (Bld) [Ratio] 0 % 0-5 [facility] MCHC Auto (RBC) [Mass/Vol]Or dered By: Dr. Stone on 08-15-2022 MCHC (RBC) [Mass/Vol] 30.8 g/dL 32-36 [facility] No Panel InformationOrdered By: Dr. Stone on 08-15-2022 Estimated Creatinine Clearance Calc 22.87 ml/min [facility] Estimated GFR (MDRD) Amer 22 mL/min >60 [facility] Comment on above: GFR Calc Estimated GFR (MDRD) Non-Af Amer 19 mL/min >60 [facility] Comment on above: Non- GFR Calc Total Iron Binding Capacity 183 ug/dL 250-450 [facility] Platelets bldOrdered By: Dr. Stone on 08-15-2022 Platelets (Bld) [#/Vol] 207 10*3/uL 150-450 [facility] Serum or plasma albumin chito urement (mass/volume)Ordered By: Dr. Stone on 08-15-2022 Albumin [Mass/Vol] 3.2 g/dL 3.2-5.0 [facility] Serum or plasma albumin/glob ulin mass ratioOrdered By: Dr. Stone on 08-15-2022 Albumin/Globulin [Mass ratio] 0.6 {ratio} 0.9-2.4 [facility] Serum or plasma calcium chito urement (mass/volume)Ordered By: Dr. Stone on 08-15-2022 Calcium [Mass/Vol] 9.1 mg/dL 8.5-10.1 [facility] Serum or plasma creatinine m easurement (mass/volume)Ordered By: Dr. Stone on 08-15-2022 Creatinine [Mass/Vol] 2.68 mg/dL 0.55-1.02 [facility] Comment on above: The validity of the calculated GFR & GFRAA in patients over 70 years has not been determined. Clinical correlation is essential. Serum or plasma ferritin francesco surement (mass/volume)Ordered By: Dr. Stone on 08-15-2022 Ferritin [Mass/Vol] 248 ng/mL 8-252 [facility] Serum or plasma folate measu rement (mass/volume)Ordered By: Dr. Stone on 08-15-2022 Folate [Mass/Vol] 4.00 ng/mL 3.1-55.4 [facility] Serum or plasma iron saturat ion measurement (mass fraction)Ordered By: Dr. Stone on 08-15-2022 Iron saturation [Mass fraction] 23.5 % 15.0-55.0 [facility] Serum or plasma urea nitroge n measurement (mass/volume)Ordered By: Dr. Stone on 08-15-2022 Urea nitrogen [Mass/Vol] 35 mg/dL 7-18 [facility] Thin prep Papanicolaou smear with manual screeningOrdered By: Dr. Stone on 08-15-2022 Thin prep Papanicolaou smear with manual screening 9 U/L 15-37 [facility] Thin prep Papanicolaou smear with manual screening 3 5-15 [facility] Absolute lymphocyte counton 04-17-2022 Lymphocytes Auto (Unsp spec) [#/Vol] 2.81 10*3/uL 0.83-4.51 [facility] Work Phone: Basophil percentageon 2021 Basophils/100 WBC (Bld) 0.9 % 0-1 [facility] Work Phone: Bilirubin [Mass/Vol] 0.20 mg/dL 0.20-1.00 [facility] Work Phone: Comment on above: For patients on eltr ombopag therapy, use of Dimension Daisy TBIL is not recommended. Chloride [Moles/Vol] 113 mmol/L 98-107 [facility] Work Phone: Eosinophils/100 WBC (Bld) 2.5 % 0-5 [facility] Work Phone: Glucose [Mass/Vol] 106 mg/dL 74-106 [facility] Work Phone: Comment on above: Fasting Glucose resu lt from 100 to 125 mg/dL suggests IMPAIRED HOMEOSTASIS per A.D.A. criteria. Neutrophils (Bld) [#/Vol] 4.7 10*3/uL 2.0-7.7 [facility] Work Phone: Neutrophils/100 WBC (Bld) 57.3 % 47-70 [facility] Work Phone: Potassium [Moles/Vol] 4.5 mmol/L 3.5-5.1 [facility] Work Phone: Protein [Mass/Vol] 8.5 g/dL 6.4-8.2 [facility] Work Phone: Sodium [Moles/Vol] 140 mmol/L 136-145 [facility] Work Phone: WBC (Bld) [#/Vol] 8.1 10*3/uL 4.4-11.0 [facility] Work Phone: Blood erythrocytes count (nu mber/volume)on 04-17-2022 RBC (Bld) [#/Vol] 3.81 10*6/uL 4.2-5.4 [facility] Work Phone: Blood hemoglobin measurement (mass/volume)on 04-17-2022 Hemoglobin (Bld) [Mass/Vol] 10.8 g/dL 12.0-15.0 [facility] Work Phone: Blood lymphocytes/100 leukoc yteson 04-17-2022 Lymphocytes/100 WBC (Bld) 34.6 % 19-41 [facility] Work Phone: Blood monocytes/100 leukocyt eson 04-17-2022 Monocytes/100 WBC (Bld) 4.3 % 0-10 [facility] Work Phone: Blood platelet mean volumeon 04-17-2022 Platelet mean volume (Bld) [Entitic vol] 9.0 fL 6.2-12.0 [facility] Work Phone: Determination of erythrocyte mean corpuscular volume (MCV)on 04-17-2022 MCV (RBC) [Entitic vol] 90.0 fL 81-99 [facility] Work Phone: Hematocrit Auto (Bld) [Volum e fraction]on 04-17-2022 Hematocrit (Bld) [Volume fraction] 34.3 % 37-47 [facility] Work Phone: Laboratory - Chemistry and C hemistry - challengeon 04-17-2022 ALP [Catalytic activity/Vol] 99 U/L 45-117 [facility] Work Phone: ALT [Catalytic activity/Vol] 10 U/L 13-56 [facility] Work Phone: [phone] CO2 [Moles/Vol] 21.0 mmol/L 21.0-32.0 [facility] Work Phone: Globulin (S) [Mass/Vol] 5.2 g/dL 2.2-4.2 [facility] Work Phone: Urea nitrogen/Creatinine [Mass ratio] 14.6 mg/mg 10-20 [facility] Work Phone: Laboratory - Hematology and Cell countson 04-17-2022 Erythrocyte distribution width (RBC) [Entitic vol] 48.7 fL 35.1-43.9 [facility] Work Phone: Erythrocyte distribution width (RBC) [Ratio] 14.8 % 11.6-14.6 [facility] Work Phone: [phone] Immature granulocytes/100 WBC (Bld) 0.400 % 0.0-0.9 [facility] Work Phone: [phone] Comment on above: IG% - Immature Granu locytes (promyelocytes, myelocytes and metamyelocytes) > 1% indicates that a LEFT SHIFT is Present. MCH (RBC) [Entitic mass] 28.3 pg 27.0-32.0 [facility] Work Phone: Nucleated RBC/100 WBC (Bld) [Ratio] 0 % 0-5 [facility] Work Phone: [phone] MCHC Auto (RBC) [Mass/Vol]on 04-17-2022 MCHC (RBC) [Mass/Vol] 31.5 g/dL 32-36 [facility] Work Phone: No Panel Informationon 04-17 Estimated Creatinine Clearance Calc 22.95 ml/min [facility] Work Phone: [phone] Estimated GFR (MDRD) Amer 23 mL/min >60 [facility] Work Phone: [phone] Comment on above: GFR Calc Estimated GFR (MDRD) Non-Af Amer 19 mL/min >60 [facility] Work Phone: [phone] Comment on above: Non- GFR Calc Platelets bldon 04-17-2022 Platelets (Bld) [#/Vol] 191 10*3/uL 150-450 [facility] Work Phone: [phone] Serum or plasma albumin chito urement (mass/volume)on 04-17-2022 Albumin [Mass/Vol] 3.3 g/dL 3.2-5.0 [facility] Work Phone: [phone] Serum or plasma albumin/glob ulin mass ratioon 04-17-2022 Albumin/Globulin [Mass ratio] 0.6 {ratio} 0.9-2.4 [facility] Work Phone: [phone] Serum or plasma calcium chito urement (mass/volume)on 04-17-2022 Calcium [Mass/Vol] 9.3 mg/dL 8.5-10.1 [facility] Work Phone: Serum or plasma creatinine m easurement (mass/volume)on 04-17-2022 Creatinine [Mass/Vol] 2.67 mg/dL 0.55-1.02 [facility] Work Phone: Comment on above: The validity of the calculated GFR & GFRAA in patients over 70 years has not been determined. Clinical correlation is essential. Serum or plasma urea nitroge n measurement (mass/volume)on 04-17-2022 Urea nitrogen [Mass/Vol] 39 mg/dL 7-18 [facility] Work Phone: Thin prep Papanicolaou smear with manual screeningon 04-17-2022 Thin prep Papanicolaou smear with manual screening 9 U/L 15-37 [facility] Work Phone: [phone] Thin prep Papanicolaou smear with manual screening 6 5-15 [facility] Work Phone: Thin prep Papanicolaou smear with manual screeningon 09-10-2021 Thin prep Papanicolaou smear with manual screening 111 U/L 84-246 [facility] Work Phone: Iron measurement (mass/mass) on 01-29-2021 Iron (Unsp spec) [Mass/Mass] 51 ug/dL 50-170 [facility] Work Phone: [phone] Laboratory - Chemistry and C hemistry - challengeon 01-29-2021 Cobalamin (Vitamin B12) [Mass/Vol] 256 pg/mL 211-911 [facility] Work Phone: Laboratory - Hematology and Cell countson 01-29-2021 Anisocytosis Ql (Bld) 1+ [facility] No Panel Informationon 01-29 Total Iron Binding Capacity 172 ug/dL 250-450 [facility] Work Phone: Serum or plasma ferritin francesco surement (mass/volume)on 01-29-2021 Ferritin [Mass/Vol] 356 ng/mL 8-252 [facility] Work Phone: Serum or plasma folate measu rement (mass/volume)on 01-29-2021 Folate [Mass/Vol] 2.00 ng/mL 3.1-55.4 [facility] Work Phone: Basophil percentageon 2020 Cholesterol [Mass/Vol] 148 mg/dL <200 [facility] Comment on above: <200 mg/dL Desirable 200-240 mg/dL Borderline >240 mg/dL High Risk Triglyceride [Mass/Vol] 142 mg/dL <199 [facility] Comment on above: The drugs N-Acetylcy steine and Metamizole may falsely depress this assay.Serum Triglycerides Reference Interval Normal <150 mg/dL Borderline high 150 - 199 mg/dL High 200 - 499 mg/dL Very High > or = 500 mg/dL Serum or plasma cholesterol in HDL measurement (mass/volume)on 11-27-2020 Cholesterol in HDL [Mass/Vol] 33 mg/dL Low >40 [facility] Comment on above: The drugs N-Acetylcy steine and Metamizole may falsely depress this assay. Reference Range HDL <40 mg/dL Low HDL Cholesterol HDL >or= 60 mg/dL High HDL Cholesterol Serum or plasma cholesterol in VLDL measurement (mass/volume)on 11-27-2020 Cholesterol in VLDL [Mass/Vol] 28 mg/dL 5-40 [facility] Serum or plasma low density lipoprotein (LDL) cholesterol measurement (mass/volume)on 11-27-2020 Cholesterol in LDL [Mass/Vol] 87 mg/dL 0-130 [facility] No Panel Informationon 10-26 Thyroid Stimulating Hormone (TSH) 1.74 uIU/mL 0.358-3.74 [facility] CNPNon 10-24-2020 CNPN Telephone (WDAK) LETTY MORENO ([id number]) 1950 F Date Time Provider Department 10/24/20 AMBER SPAIN (RN) GABY During your visit today, we recorded the following information about you: Amber Spain RN, RN 10/24/2020 2:53 PM Signed driving teacher called patient's daughter Apryl to discuss pouch leaking issues. She states they were supposed to receive fpc care in the home, but it is not available in her area. I informed her that we cannot come to her house, but we could schedule an outpatient ostomy visit at the hospital, Apryl said she would have to schedule transportation if that is needed. Apryl explained that her mother is more mobile now and pouch has been leaking every 1-2 days. She is currently using [employer] Sensura Delanson red flat wafer with barrier ring and urostomy pouch. I instructed her on the use of powder and skin prep crusting of red/irritated skin, paste to skin creases, convex wafers/pouches, and ostomy belt. I will order [employer] sample products for the patient to try. If leaking issues persist Apryl will call to schedule an outpatient ostomy visit. No further questions or concerns at this time. Allergies As of Date: 10/24/2020 Noted Allergy Reaction BACTRIM (SULFAMETHOXAZOLE-TRIME TH*03/20/2020 8 - GI Upset CIPROFLOXACIN 11/03/2019 11 - Vomiting PENICILLIN G 09/22/2019 2 - Rash Date Reviewed: 03/25/2020 Reviewed by: Dino (Rn) LUIS Patrick - Fully Assessed Reason for Visit: Ostomy Care [3507] Prescriptions as of 10/24/2020 Sig: MIRTAZAPINE 15 MG TABLET Take 1 tablet by mouth daily * APIXABAN 5 MG TABLET Take 1 tablet by mouth twice * FOLIC ACID 1 MG TABLET Take 1 tablet by mouth once d* MELATONIN 3 MG TABLET Take 1 tablet by mouth at bed* SPIRONOLACTONE 25 MG TABLET Take 25 mg by mouth twice inghat* TRAMADOL 50 MG TABLET Take 50 mg by mouth daily at * LOPERAMIDE 2 MG CAPSULE Take 2 mg by mouth four times* FUROSEMIDE 20 MG TABLET Take 1 tablet by mouth once d* Patient not taking: Reported on 03/20/2020 MISCELLANEOUS MEDICAL SUPPLY * Ileal conduit/urostomy suppli* ZOLPIDEM 5 MG TABLET Take 1 tablet by mouth at bed* Patient not taking: Reported on 03/20/2020 IMIPRAMINE 10 MG TABLET Take 1 tablet by mouth daily * ALBUTEROL INHALATION Inhale 1 Inhalation as instru* DEXTROAMPHETAMINE-AMPHE TAMINE* Take 5 mg by mouth three time* Problem List As Of Date 10/24/2020 Noted Resolved Bladder cancer (HCC) [C67.9] 10/13/2019 Obesity, Class II, BMI 35-39.9 [E66.9] 10/14/2019 Abdominal wall abscess [L02.211] 03/21/2020 03/25/2020 Encounter Status:Closed by AMBER SPAIN on 10/24/20 [facility] CNPMery 10-19-2020 CNPN Telephone (UROLAE) LETTY MORENO ([id number]) 1950 F Date Time Provider Department 10/19/20 SHAILESH YIN During your visit today, we recorded the following information about you: Kayla Herndon MA 10/19/2020 8:42 AM Signed Patients daughter Apryl calling with the concern of her mothers urostomy bag loose from her skin and would like to know could you give her a referral to a Nurse who could come out and try to make things better with urostomy bag. Patient is not mobile and daughter thinks she pulls it at times. PEREZ Barry DO, MBA 10/19/2020 9:12 AM Signed Please direct to [facility] ostomy nurses Aure Pulliam 10/24/2020 10:00 AM Signed October 24, 2020 9:59 AM Left message with the Ostomy team so contact patient. Aure Orellana Allergies As of Date: 10/19/2020 Noted Allergy Reaction BACTRIM (SULFAMETHOXAZOLE-TRIME TH*03/20/2020 8 - GI Upset CIPROFLOXACIN 11/03/2019 11 - Vomiting PENICILLIN G 09/22/2019 2 - Rash Date Reviewed: 03/25/2020 Reviewed by: Dino (Rn) LUIS Patrick - Fully Assessed Reason for Visit: Patient Question [3597] Prescriptions as of 10/19/2020 Sig: MIRTAZAPINE 15 MG TABLET Take 1 tablet by mouth daily * APIXABAN 5 MG TABLET Take 1 tablet by mouth twice * FOLIC ACID 1 MG TABLET Take 1 tablet by mouth once d* MELATONIN 3 MG TABLET Take 1 tablet by mouth at bed* SPIRONOLACTONE 25 MG TABLET Take 25 mg by mouth twice nighat* TRAMADOL 50 MG TABLET Take 50 mg by mouth daily at * LOPERAMIDE 2 MG CAPSULE Take 2 mg by mouth four times* FUROSEMIDE 20 MG TABLET Take 1 tablet by mouth once d* Patient not taking: Reported on 03/20/2020 MISCELLANEOUS MEDICAL SUPPLY * Ileal conduit/urostomy suppli* ZOLPIDEM 5 MG TABLET Take 1 tablet by mouth at bed* Patient not taking: Reported on 03/20/2020 IMIPRAMINE 10 MG TABLET Take 1 tablet by mouth daily * ALBUTEROL INHALATION Inhale 1 Inhalation as instru* DEXTROAMPHETAMINE-AMPHE TAMINE* Take 5 mg by mouth three time* Problem List As Of Date 10/19/2020 Noted Resolved Bladder cancer (HCC) [C67.9] 10/13/2019 Obesity, Class II, BMI 35-39.9 [E66.9] 10/14/2019 Abdominal wall abscess [L02.211] 03/21/2020 03/25/2020 Encounter Status:Closed by SHAILESH YIN on 10/19/20 [facility] .GFRon 05-18-2020 GFR 37 ml/min/1.73sqm Normal [facility] ([place]) Comment on above: Result Comment: GFR Population mean for , Non- Americans Ages 20-29 = 116 mL/min/1.73 sq.m. Ages 30-39 = 107 mL/min/1.73 sq.m. Ages 40-49 = 99 mL/min/1.73 sq.m. Ages 50-59 = 93 mL/min/1.73 sq.m. Ages 60-69 = 85 mL/min/1.73 sq.m. Ages 70+ = 75 mL/min/1.73 sq.m. Chronic Kidney Disease: Less than 60 mL/min/1.73 square meters End Stage Renal Disease: Less than 15 mL/min/1.73 square meters Performed By: #### HOWARD TA ANEU #### [address] [address] GFR Non- 31 ml/min/1.73sqm Normal [facility] ([place]) Comment on above: Result Comment: GFR Population mean for , Non- Americans Ages 20-29 = 116 mL/min/1.73 sq.m. Ages 30-39 = 107 mL/min/1.73 sq.m. Ages 40-49 = 99 mL/min/1.73 sq.m. Ages 50-59 = 93 mL/min/1.73 sq.m. Ages 60-69 = 85 mL/min/1.73 sq.m. Ages 70+ = 75 mL/min/1.73 sq.m. Chronic Kidney Disease: Less than 60 mL/min/1.73 square meters End Stage Renal Disease: Less than 15 mL/min/1.73 square meters Performed By: #### HOWARD TA ANEU #### [address] [address] BMPon 05-18-2020 Calcium [Mass/Vol] 9.6 mg/dL Normal 8.4-10.1 [facility]ly [facility] ([place]) Comment on above: Result Comment: No te - New Reference Range in effect 20 Performed By: #### HOWARD TA ANEU #### [place] [address] [address] Chloride [Moles/Vol] 110 mmol/L Normal 98-110 [facility] ([place]) Comment on above: Performed By: #### HOWARD TA ANEU #### [place] [address] [address] CO2 [Moles/Vol] 21 mmol/L Low 22-32 [facility] ([place]) Comment on above: Performed By: #### HOWARD TA ANEU #### [address] [address] Creatinine [Mass/Vol] 1.66 mg/dL High 0.50-1.20 [facility] ([place]) Comment on above: Performed By: #### HOWARD TA, AARON #### [address] [address] Electrolyte Balance 8.0 mEq/L Normal 4.0-15.0 Formerly [facility] ([place]) Comment on above: Performed By: #### HOWARD TA, ANEU #### [address] [address] Glucose [Mass/Vol] 94 mg/dL Normal 82-115 [facility] ([place]) Comment on above: Performed By: #### HOWARD TA, ANEU #### [address] [address] Potassium [Moles/Vol] 4.2 mmol/L Normal 3.5-5.0 [facility] ([place]) Comment on above: Performed By: #### HOWARD TA, AARON #### [address] [address] Sodium [Moles/Vol] 139 mmol/L Normal 136-145 [facility] ([place]) Comment on above: Performed By: #### HOWARD TA, ANEU #### [address] [address] Urea nitrogen [Mass/Vol] 25.0 mg/dL High 8.0-22.0 [facility] ([place]) Comment on above: Performed By: #### HOWARD TA, ANEU #### [address] [address] Urea nitrogen/Creatinine [Mass ratio] 15.1 ratio Normal 10.0-22.0 [facility] ([place]) Comment on above: Performed By: #### HOWARD TA, ANEU #### [address] [address] Jeanine 03-27-2020 ALFRED Telephone (UROLAE) NICOLE TREVINOLETTY ([id number]) 1950 F Date Time Provider Department 03/27/20 SHAILESH YIN During your visit today, we recorded the following information about you: Yoanna Viet Pulliam 03/27/2020 3:53 PM Signed Patients daughter called to set up hospital stay follow up. She is confused and not sure if they needed to actually come in. She would like if you would review her hospital stay records and say if she needs the follow up or not? Please advise, thank you Yoanna Viet Yin DO, MBA 03/28/2020 12:16 PM Signed Needs a CT flank then appt with me in 4-6 weeks. If outside system, they need to bring the disc to office appt. Thanks Shailesh Yin DO, MBA 03/28/2020 12:16 PM Signed Addended by: SHAILESH YIN on: 03/28/2020 12:16 PM Modules accepted: Getachew Riddle PSS 03/28/2020 1:27 PM Signed Patients daughter aware of note below. She will be going to [place] to have CT done, order is being faxed and Daughter Apryl is aware to obtain and bring disc and results to follow up appt. Aure Riddle PSS Allergies As of Date: 03/27/2020 Noted Allergy Reaction BACTRIM (SULFAMETHOXAZOLE-TRIME TH*03/20/2020 8 - GI Upset CIPROFLOXACIN 11/03/2019 11 - Vomiting PENICILLIN G 09/22/2019 2 - Rash Date Reviewed: 03/25/2020 Reviewed by: Dino (Rn) LUIS Patrick - Fully Assessed Reason for Visit: follow up appointment? [Other] Visit Diagnosis:Gross hematuria [R31.0] Order(s):CT FLANK WO IVCON [[id number]] Order #: [id number] FUTURE Prescriptions as of 03/27/2020 Sig: MIRTAZAPINE 15 MG TABLET Take 1 tablet by mouth daily * APIXABAN 5 MG TABLET Take 1 tablet by mouth twice * FOLIC ACID 1 MG TABLET Take 1 tablet by mouth once d* MELATONIN 3 MG TABLET Take 1 tablet by mouth at bed* CEFDINIR 300 MG CAPSULE Take 1 capsule by mouth twice* METRONIDAZOLE 500 MG TABLET Take 1 tablet by mouth three * SPIRONOLACTONE 25 MG TABLET Take 25 mg by mouth twice nighat* TRAMADOL 50 MG TABLET Take 50 mg by mouth daily at * LOPERAMIDE 2 MG CAPSULE Take 2 mg by mouth four times* FUROSEMIDE 20 MG TABLET Take 1 tablet by mouth once d* Patient not taking: Reported on 03/20/2020 MISCELLANEOUS MEDICAL SUPPLY * Ileal conduit/urostomy suppli* IMIPRAMINE 10 MG TABLET Take 1 tablet by mouth daily * ALBUTEROL INHALATION Inhale 1 Inhalation as instru* DEXTROAMPHETAMINE-AMPHE TAMINE* Take 5 mg by mouth three time* Problem List As Of Date 03/27/2020 Noted Resolved Bladder cancer (HCC) [C67.9] 10/13/2019 Obesity, Class II, BMI 35-39.9 [E66.9] 10/14/2019 Abdominal wall abscess [L02.211] 03/21/2020 03/25/2020 Encounter Status:Closed by YOANNA ROJAS on 03/28/20 Normal [facility]. Teston 03-26-2020 [facility]. Test Result SEE BELOW Normal [facility] Comment on above: Result Comment: Crea tinine, Fluid 1.6 mg/dL (NOTE) Serous fluids: Creatinine measurement in peritoneal or drainage fluids is considered a useful test for detecting the presence of urine leaking through a defect in the urinary tract. A ratio of serous fluid creatinine to a concurrent serum creatinine > 1.0 indicates possible urine extravasation. Amniotic fluid: Creatinine measurement can be performed on amniotic fluid. The interpretation of the result is dependent on the clinical context, including gestational age. See references below. References: 1.CLSI. Analysis of Body Fluids in Clinical Chemistry; Approved Guideline. CLSI document C49-A. ZAC Zendejas: Clinical Laboratory Standards [place]; 2007. 2.Lamar RJ, Zeyad TA, Sean JL, Yung VM, Luis CJ. Composition of the amniotic fluid and maternal serum in . Am J Obstet Gynecol 1974;119:798-810. This test was developed and its performance characteristics determined by [facility] ([facility]). It has not been cleared or approved by the FDA. -[facility] is regulated under CLIA as qualified to perform high-complexity testing. This test is used for clinical purposes. It should not be regarded as investigational or for research. Performing Laboratory: [facility] [address] [place] [address] Performed By: #### A BISHOP #### [address] [address] Activated PTTon 03-25-2020 aPTT Coag (Bld) [Time] 68.8 s High 23.0-32.4 [facility] Comment on above: Result Comment: Unfr actionated Heparin Therapeutic Ranges: Standard Heparin Nomogram: 53 to 78 seconds (anti-Xa level of 0.3 to 0.7 U/mL) Low Dose/ACS Nomogram: 49 to 67 seconds (anti-Xa level of 0.2 to 0.5 U/mL) Stroke Treatment Nomogram: 49 to 67 seconds (anti-Xa level of 0.2 to 0.5 U/mL) Note: The APTT therapeutic range has been determined for the current lot of laboratory APTT reagent in use throughout the [facility]. Performed By: #### P CATX #### [address] [address] aPTT Coag (Bld) [Time] 62.1 s High 23.0-32.4 [facility] Comment on above: Result Comment: Unfr actionated Heparin Therapeutic Ranges: Standard Heparin Nomogram: 53 to 78 seconds (anti-Xa level of 0.3 to 0.7 U/mL) Low Dose/ACS Nomogram: 49 to 67 seconds (anti-Xa level of 0.2 to 0.5 U/mL) Stroke Treatment Nomogram: 49 to 67 seconds (anti-Xa level of 0.2 to 0.5 U/mL) Note: The APTT therapeutic range has been determined for the current lot of laboratory APTT reagent in use throughout the [facility]. Performed By: #### P CATX #### [facility] [address] [place], [place] [address] Basic Metabolic Panelon 08-2020 Anion gap [Moles/Vol] 6 mmol/L Low 9-18 [facility] Comment on above: Performed By: #### P CATX #### [facility] [address] [place], [place] [address] Calcium [Mass/Vol] 8.1 mg/dL Low 8.5-10.2 [facility] Comment on above: Performed By: #### P CATX #### [facility] [address] [place], [place] [address] Chloride [Moles/Vol] 106 mmol/L High 97-105 [facility] Comment on above: Performed By: #### P CATX #### [facility] [address] [place], [place] [address] CO2 Blood 27 mmol/L Normal 22-30 [facility] Comment on above: Performed By: #### P CATX #### [facility] [address] [place], [place] [address] Creatinine [Mass/Vol] 1.31 mg/dL High 0.58-0.96 [facility] Comment on above: Performed By: #### P CATX #### [facility] [address] [place], [place] [address] Glucose [Mass/Vol] 94 mg/dL Normal 74-99 [facility] Comment on above: Result Comment: The [place] [employer] Association (ADA) provides guidance for cutoff values for fasting glucose and random glucose. The ADA defines fasting as no caloric intake for at least 8 hours.Fasting plasma glucose results between 100 to 125 mg/dL indicate increased risk for diabetes (prediabetes). Fasting plasma glucose results greater than or equal to 126 mg/dL meet the criteria for diagnosis of diabetes. In the absence of unequivocal hyperglycemia, results should be confirmed by repeat testing. In a patient with classic symptoms of hyperglycemia or hyperglycemic crisis, random plasma glucose results greater than or equal to 200 mg/dL meet the criteria for diagnosis of diabetes. Reference: Standards of Medical Care in Diabetes 2016; [place] [employer]. Diabetes Care. 2016;39(Suppl 1). Performed By: #### P CATX #### [facility] [address] [place] [address] Potassium [Moles/Vol] 3.5 mmol/L Low 3.7-5.1 [facility] Comment on above: Performed By: #### P CATX #### [facility] [address] [place] [address] Sodium [Moles/Vol] 139 mmol/L Normal 136-144 [facility] Comment on above: Performed By: #### P CATX #### [facility] [address] [place] [address] Urea nitrogen [Mass/Vol] 12 mg/dL Normal 7-21 [facility] Comment on above: Performed By: #### P CATX #### [facility] [address] [place] [address] CASE MANAGEMon 03-25-2020 CASE MANAGEM HNO ID: [id number] Author: Toyin Burrell RN Service: Care Management Author Type: Registered Nurse Type: Care Mgt Progress Note Filed: 03/25/2020 3:19 PM Note Text: CARE MANAGEMENT DISCHARGE NOTE SERVICE DATE: 03/25/2020 SERVICE TIME: 3:18 PM LOS: 4 days Admission Date: 03/20/2020 DISCHARGE ARRANGEMENT (list agency and phone number) Discharge Arrangement: Home;Home Retirement Care: Nursing;PT;OT Provider Name: Carrie [facility] CAREGIVER ASSESSMENT: HANDOFF COMMUNICATION: Handoff to: Other Caregiver Other Caregiver Name/Phone: Laura SMITH TRANSPORTATION ARRANGEMENTS: Transportation Arrangements: Car ADDITIONAL CONTACT RESOURCES: Pt D/C to home with . [facility] will accept for services. D/C paperwork sent electronically. to transport home. SIGNATURE: Toyin Burrell RN PATIENT NAME: Letty Trevino DATE: March 25, 2020 TIME: 3:18 PM PAGER/CONTACT #: [phone] [facility] CASE MANAGEM HNO ID: [id number] Author: Toyin Burrell RN Service: Care Management Author Type: Registered Nurse Type: Care Mgt Progress Note Filed: 03/25/2020 1:55 PM Note Text: CARE MANAGEMENT PROGRESS NOTE SERVICE DATE: 03/25/2020 SERVICE TIME: 1:51 PM LOS: 4 days [place] of Choice Given: Yes Level of Care Discussed: Home Care Financial Disclosure Provided: Yes Financial Disclosure Comments: Care connected Provider List: Home Care Provider list within the patient's requested geographic area shared with the patient/family: Yes of zip code: [address] Noted D/C in Epic and TC to RN and Daughter, Apryl. She stated that her and her father take care of the pt's needs at home and they did have home care for therapy a few weeks ago. However, Apryl states that the pt does not really do anything, but she realizes she needs to move more. She is requesting home therapy, as rec by PT/OT. Apryl requested that referral to [facility] be sent. Pt was active with them prior to admission. Referral sent. TC to Dr. Alcala for home care orders. SIGNATURE: Toyin Burrell RN PATIENT NAME: Letty Trevino DATE: March 25, 2020 TIME: 1:51 PM PAGER/CONTACT #: [phone] Normal [facility] Hemogramon 03-25-2020 Erythrocyte distribution width (RBC) [Ratio] 22.1 % High 11.7-14.4 [facility] Comment on above: Performed By: #### P CATX #### [place] [address] Hematocrit (Bld) [Volume fraction] 28.4 % Low 34.1-44.9 [facility] Comment on above: Performed By: #### P CATX #### [place] [address] Hemoglobin (Bld) [Mass/Vol] 9.3 g/dL Low 11.2-15.7 [facility] Comment on above: Performed By: #### P CATX #### [place] [address] MCH (RBC) [Entitic mass] 36.5 pg High 25.6-32.2 [facility] Comment on above: Performed By: #### P CATX #### [place] [address] MCHC (RBC) [Mass/Vol] 32.7 % Normal 31.6-34.8 [facility] Comment on above: Performed By: #### P CATX #### [facility] [address] [place] [id number] MCV (RBC) [Entitic vol] 111.4 fL High 79.4-94.8 [facility] Comment on above: Performed By: #### P CATX #### [facility] [address] [place] [address] Platelet mean volume (Bld) [Entitic vol] 9.6 fL Normal 9.4-12.3 [facility] Comment on above: Performed By: #### P CATX #### [facility] [address] [place] [id number] Platelets (Bld) [#/Vol] 219 thou/cmm Normal 182-369 [facility] Comment on above: Performed By: #### P CATX #### [place] [address] RBC (Bld) [#/Vol] 2.55 mil/cmm Low 3.93-5.22 [facility] Comment on above: Performed By: #### P CATX #### [facility] [address] [place] [address] RDW SD 86.1 fl High 36.4-46.3 [facility] Comment on above: Performed By: #### P CATX #### [place] [id number] WBC (Bld) [#/Vol] 8.87 thou/cmm Normal 3.98-10.04 [facility] Comment on above: Performed By: #### P CATX #### [facility] [address] [place] [id number] MDRD GFRon 03-25-2020 GFR/1.73 sq M predicted among non-blacks MDRD (S/P/Bld) [Vol rate/Area] 40.08 mL/min/{1.73_m2} Normal >60mL/min/1 .73m2 [facility] Comment on above: Result Comment: If t he patient is , multiply the result by 1.210. Performed By: #### P 8 #### [facility] [address] [place] [address] NURSING PROGon 03-25-2020 NURSING PROG HNO ID: [id number] Author: Dino ShahRn) LUIS Patrick Service: ? Author Type: Registered Nurse Type: Nursing Progress Note Filed: 03/25/2020 12:10 PM Note Text: Nursing Progress Note Patient Name: Letty Trevino Patient Location: [place] [address] [address] Daily Note:Spoke with urology resident. Pt okay to be discharged from urology standpoint. Follow up outpt. This note was completed by: Dino Patrick RN Normal [facility] THERAPY NTon 03-25-2020 THERAPY NT HNO ID: [id number] Author: Silva (Pt) Rohit Service: Physical Therapy Author Type: Physical Therapist Type: Therapy (PT/OT/Speech/Resp) Filed: 03/25/2020 12:03 PM Note Text: Physical Therapy Evaluation SERVICE DATE: 03/25/2020 SERVICE TIME: 1115 to 1139 ROOM: [place] [address] Recommended Discharge Disposition: Home PT Recommended Discharge Disposition Comments: Recommend discharge to home with family assist and home PT. Patient would benefit from continued skilled PT upon discharge. Anticipated Discharge Needs: Physical Assist at Home Physical Assist at Home for: Cleaning;Laundry;Meals; Safety;Transportation;S elf Care;Shopping Recommended Discharge Equipment: No equipment needs anticipated PT Recommendations to Nursing: Transfer to/from chair;OOB for Meals;With assist of 1 person Device: Wheeled Walker PT 6 Clicks Score: 15 Precautions/Activity Restrictions: Fall Risk;Lines/Tubes/Drains Precaution/Activity Restriction Comments: IV, ileostomy Isolation Type: None ASSESSMENT : This patient was admitted for abdominal swelling at the ileostomy site, has the past medical history of COPD with asthma, bladder CA, uterine CA, cystotomy 04/2019, ileostomy 10/2019 impacting current functional level, as well as the social factors complicating the discharge of lives in a house with family and has been getting progressively weaker and declining to participate in self-care, per family. This patient is below her baseline functioning of ambulatory short distances with a wheeled walker and will benefit from continued skilled therapy in the hospital for treatment of the following body systems/impairments: musculoskeletal, neuromuscular and cardiovascular/pulmonar y. Patient Disposition at Start of Session: Supine in Bed;Call [facility] in Reach;Family Present Patient Disposition at End of Session: OOB in Chair;Call [facility] in Reach;Family Present Tolerated Full Session Physical Therapy Problem List: Education Deficit;Pain;Decreased Activity Tolerance;Decreased Strength;Functional Mobility Impairment;Balance Impaired Patient /Caregiver Goals: Go Home Goals for Plan of Care: Able to perform HEP with: Verbal Cues Only(2x10 B LE general strengthening exercises) Transfer supine to/from sit with: Supervision Transfer sit to/from stand with: Supervision Ambulate with: Supervision Distance: 15' intervals Device: Wheeled Walker Transfer: Patient to demonstrate safe transfers bed <--> chair <--> BSC with supervision Rehab Potential: Good PLAN: Treatment Frequency (times per week): 5(2-5) Current admission Treatment Interventions: Education;Energy Conservation Training;Joint Mobility;Strengthening; Functional Mobility Training;Balance Training;Neuromuscular Re-education Plan of Care developed with: Patient;Family() TREATMENT INTERVENTIONS: Therapy Diagnosis: Muscle Weakness (generalized);Unsteadin ess on feet;General symptoms and signs-other Interventions Provided: Evaluation;Therapeutic Activity (83609) $ Evaluation-Moderate (48052) Billed Units: 1 unit History and examination of body systems see assessment section above. This patient?s clinical presentation is evolving. The patient required a moderate complexity evaluation. Educated patient and on physical therapy plan of care, role of physical therapy and physical therapist in acute care, and discharge disposition recommendation. Therapeutic Activity (50704) Treatment Minutes: 8 1 unit Skilled Intervention(s): Instructed patient in supine to sit pushing with upper extremities to sit up with bed elevated and assistance. Instruction in sit to stand technique with proper hand placement and body positioning at edge of bed Instruction in safe stepping to chair with hand held assist/furniture cruising Instruction in stand to sit technique with lower extremities touching chair and reaching back for surface to control descent. Educated patient on importance of being out of bed --> chair for all meals to maintain strength and mobility during hospitalization. Educated patient on importance of maintaining mobility and strength to prevent complications from hospitalization. Total Timed Code Treatment Minutes: 8 Total Treatment Time (minutes): 24 SUBJECTIVE: Current Hospital Course: Chart reviewed; patient was admitted for abdominal swelling at the ileostomy site. Patient was also found to have a DVT in the L LE and has been on anticoagulation. Reason for Physical Therapy Consult : Eval AND tx Relevant Past Medical History: COPD with asthma, bladder CA, uterine CA, cystotomy 04/2019, ileostomy 10/2019 Patient Report: Patient agreeable to PT. Patient c/o pain 03/13 in abdomen it's always like that but does not appear to be in acute distress. Home Environment Patient Lives With: Spouse Assistance Available: 24 Hour( works days but daughter comes during the day) Entry To Home: Ramp Number Of Stairs To Bed/Bath: 0 Tub/Shower Type: walk in shower Laundry: on the main floor assists Equipment Owned: Cane;Commode-Bedside;Gr ab Bars-Shower;Hospital Bed;Wheeled Walker;Shower Bench;Wheelchair(scoote r) Prior Functional Level: Required Assistance;History of Falls Assistance Required With: Ambulation;Cleaning;Billings ndry;Meals;Safety;Self Care;Shopping;Transport ation Prior Functional Level Comments: Patient only ambulates short intervals with the wheeled walker, uses scooter most of the time and has family to assist with ADLs/IADLs, getting home PT/OT. OBJECTIVE: Range of Motion: Lower Extremity Comments Right Lower Extremity ROM Comments: WFL Left Lower Extremity ROM Comments: WFL Strength: Lower Extremity Comments Right Lower Extremity Strength Comments: Grossly 4-/5 Left Lower Extremity Strength Comments: Grossly 4-/5 CURRENT FUNCTIONAL STATUS: Current Functional Mobility Assist Level Additional Information Rolling Supine to Sit Minimal Assistance(HOB 30*) Sit to Supine Scooting Minimal Assistance Sit to Stand Contact Guard Assistance Stand to Sit Contact Guard Assistance Bed to Chair Toilet/Commode Gait Contact Guard Assistance Gait Device: Hand Held Assist Gait Distance (feet): 5 steps bed --> chair Stairs Curb Step Car Transfer General Deviations/Observations : Bryce decreased;Flexed trunk posture;Non-functional gait speed;Step length decreased;Wide base of support Balance: Static Sitting;Dynamic Sitting;Static Standing;Dynamic Standing Static Sitting Balance: Fair Patient able to maintain balance with handhold support, may require occasional minimal assistance Dynamic Sitting Balance: Fair Patient accepts minimal challenge, able to maintain balance while turning head/trunk Static Standing Balance: Fair Patient able to maintain balance with handhold support, may require occasional minimal assistance Dynamic Standing Balance: Fair Patient accepts minimal challenge, able to maintain balance while turning head/trunk -HLM: 4: Move to chair / commode Please see discipline specific clinical documentation flowsheet for complete details for this therapy evaluation/treatment. SIGNATURE: Silva Bee PT PATIENT NAME: Letty Trevino DATE: March 25, 2020 TIME: 11:58 AM Normal [facility] US KIDNEY/BLADDERon 03-25-20 US KIDNEY/BLADDER Final Report DATE OF EXAM: Mar 25 2020 8:51AM [facility] 1055 - US KIDNEY/BLADDER / PROCEDURE REASON: Renal failure, acute (kidney injury) Physician Interpretation EXAMINATION: RENAL ULTRASOUND CLINICAL HISTORY: Acute renal failure. History of metastatic bladder carcinoma TECHNIQUE: Sonography of the kidneys and urinary bladder was performed. Images were obtained and stored in a permanent archive. MQ: UR_1 COMPARISON: Outside CT study performed 5 days ago RESULT: Right Kidney: -Renal length: 10.0 cm -Parenchyma: Normal parenchymal echogenicity. Normal parenchymal thickness. -Collecting system: No hydronephrosis. -Calculus: No echogenic, shadowing calculus. -Lesion: There is an 18 x 18 mm hypoechoic nodule seen along the mid portion of the kidney. This is not clearly a simple cyst on this exam as there is low level internal echoes. There is a nearby exophytic 8 mm cyst. Left Kidney: -Renal length: 11.0 cm -Parenchyma: Normal parenchymal echogenicity. Normal parenchymal thickness. -Collecting system: Severe hydronephrosis -Calculus: No echogenic, shadowing calculus. -Lesion: None. Bladder: Surgically absent. IMPRESSION: 1. Severe left-sided hydronephrosis. 2. 18 mm hypoechoic right renal nodule which could represent a complex cyst or solid lesion. Renal CT with and without IV contrast recommended. 3. 8 mm exophytic right renal cyst. Projector Booth Operator: LAKEISHA Transcribe Date/Time: Mar 25 2020 9:03A Dictated by : TONO ULRICH MD This examination was interpreted and the report reviewed and electronically signed by: TONO ULRICH MD on Mar 25 2020 9:07AM EST [facility], [place] ALLIED HEALTHon 03-24-2020 ALLIED HEALTH HNO ID: [id number] Author: Brenda BEE Service: Music Therapy Author Type: ? Type: Allied Health Filed: 03/24/2020 12:36 PM Note Text: MUSIC THERAPY NOTE SERVICE DATE: 03/24/2020 SERVICE TIME: 1200 Referred By: Nurse Reason for Referral: Agitation Session Type: Initial Time Spent (minutes): 20 GOALS: Goals: Build Rapport;Provide Emotional Support INTERVENTIONS: Interventions: Therapeutic Use of Self/Verbal Processing Response Before After Pain 0 Anxiety Mood Facial Behavior 2 - Frown/Grimace 2 - Frown/Grimace Body Movement 0 - No Movement/Appropriate Movement 0 - No Movement/Appropriate Movement Sleep N/A - Awake N/A - Awake Vocal 2 - Crying, Moaning, Complaining 1 - Neutral/No Vocal Scale: 0 = No pain/anxiety 10 = Worst possible pain/anxiety RESPONSE: Music Choices: Other: See Comment(talking session) Family Present: No Patient's Verbal Response: Ambivalent OUTCOME: Goals: Met Met: Build Rapport;Provide Emotional Support FOLLOW UP: Will Continue to Follow Pt presented in bed, with a frowning affect and calm manner; not interested in music therapy but engaging in talking-only session. Pt complaining about how she doesn't understand why she remains admitted and said she was disgusted by it. Music therapist provided validation and empathetic listening. Encouraged pt to continue to follow her doctor's recommendations about remaining in the hospital. Pt engaged in discussion about her family and hometown. Session ended because pt was interested in resting. Open to continued visits in the future. Will continue to follow. SIGNATURE: Brenda BEE PATIENT NAME: Letty Trevino DATE: March 24, 2020 TIME: 12:32 PM PAGER/CONTACT #: P: [phone] [facility] Activated PTTon 08-21-2020 aPTT Coag (Bld) [Time] 74.0 s High 23.0-32.4 [facility] Comment on above: Result Comment: Unfr actionated Heparin Therapeutic Ranges: Standard Heparin Nomogram: 53 to 78 seconds (anti-Xa level of 0.3 to 0.7 U/mL) Low Dose/ACS Nomogram: 49 to 67 seconds (anti-Xa level of 0.2 to 0.5 U/mL) Stroke Treatment Nomogram: 49 to 67 seconds (anti-Xa level of 0.2 to 0.5 U/mL) Note: The APTT therapeutic range has been determined for the current lot of laboratory APTT reagent in use throughout the [facility]. Performed By: #### A BISHOP #### [place] [id number] aPTT Coag (Bld) [Time] 85.1 s Critically high 23.0-32. 4 [facility] Comment on above: Result Comment: Unfr actionated Heparin Therapeutic Ranges: Standard Heparin Nomogram: 53 to 78 seconds (anti-Xa level of 0.3 to 0.7 U/mL) Low Dose/ACS Nomogram: 49 to 67 seconds (anti-Xa level of 0.2 to 0.5 U/mL) Stroke Treatment Nomogram: 49 to 67 seconds (anti-Xa level of 0.2 to 0.5 U/mL) Note: The APTT therapeutic range has been determined for the current lot of laboratory APTT reagent in use throughout the [facility]. Performed By: #### A BISHOP #### [address] [address] aPTT Coag (Bld) [Time] 71.2 s High 23.0-32.4 [facility] Comment on above: Result Comment: Unfr actionated Heparin Therapeutic Ranges: Standard Heparin Nomogram: 53 to 78 seconds (anti-Xa level of 0.3 to 0.7 U/mL) Low Dose/ACS Nomogram: 49 to 67 seconds (anti-Xa level of 0.2 to 0.5 U/mL) Stroke Treatment Nomogram: 49 to 67 seconds (anti-Xa level of 0.2 to 0.5 U/mL) Note: The APTT therapeutic range has been determined for the current lot of laboratory APTT reagent in use throughout the [facility]. Performed By: #### A BISHOP #### [facility] [address] [place], [place] [address] Basic Metabolic Panelon 08- Anion gap [Moles/Vol] 6 mmol/L Low 9-18 [facility] Comment on above: Performed By: #### A BISHOP #### [facility] [address] [place], [place] [address] Calcium [Mass/Vol] 8.2 mg/dL Low 8.5-10.2 [facility] Comment on above: Performed By: #### A BISHOP #### [facility] [address] [place], [place] [address] Chloride [Moles/Vol] 107 mmol/L High 97-105 [facility] Comment on above: Performed By: #### A BISHOP #### [facility] [address] [place], [place] [address] CO2 Blood 27 mmol/L Normal 22-30 [facility] Comment on above: Performed By: #### A BISHOP #### [facility] [address] [place], [place] [address] Creatinine [Mass/Vol] 1.56 mg/dL High 0.58-0.96 [facility] Comment on above: Performed By: #### A BISHOP #### [facility] [address] [place], [place] [address] Glucose [Mass/Vol] 71 mg/dL Low 74-99 [facility] Comment on above: Result Comment: The [place] [employer] (ADA) provides guidance for cutoff values for fasting glucose and random glucose. The ADA defines fasting as no caloric intake for at least 8 hours.Fasting plasma glucose results between 100 to 125 mg/dL indicate increased risk for diabetes (prediabetes). Fasting plasma glucose results greater than or equal to 126 mg/dL meet the criteria for diagnosis of diabetes. In the absence of unequivocal hyperglycemia, results should be confirmed by repeat testing. In a patient with classic symptoms of hyperglycemia or hyperglycemic crisis, random plasma glucose results greater than or equal to 200 mg/dL meet the criteria for diagnosis of diabetes. Reference: Standards of Medical Care in Diabetes 2016; [place] [employer]. Diabetes Care. 2016;39(Suppl 1). Performed By: #### A BISHOP #### [facility] [address] [place], [place] [address] Potassium [Moles/Vol] 3.7 mmol/L Normal 3.7-5.1 [facility] Comment on above: Performed By: #### A BISHOP #### [facility] [address] [place] [address] Sodium [Moles/Vol] 140 mmol/L Normal 136-144 [facility] Comment on above: Performed By: #### A BISHOP #### [facility] [address] [place], [place] [address] Urea nitrogen [Mass/Vol] 14 mg/dL Normal 7-21 [facility] Comment on above: Performed By: #### A BISHOP #### [facility] [address] [place] [address] CASE MANAGEMon 03-24-2020 CASE MANAGEM HNO ID: [id number] Author: Lilliam (Rn) LUIS Isaac Service: Care Management Author Type: Registered Nurse Type: Care Mgt Progress Note Filed: 03/24/2020 4:33 PM Note Text: CARE MANAGEMENT PROGRESS NOTE SERVICE DATE: 03/24/2020 SERVICE TIME: 1632 LOS: 3 days Needs Prior to Discharge: To Be Determined;OT/PT Evaluation Chart reviewed, ID, and following. Will need PT OT consults for discharge planning. Will continue to follow for discharge planning SIGNATURE: Lilliam Isaac RN PATIENT NAME: Letty Trevino DATE: March 24, 2020 TIME: 4:32 PM PAGER/CONTACT #: [phone] [facility] CONSULT PROGon 03-24-2020 CONSULT PROG HNO ID: [id number] Author: Mony Valerio (Pharmacist) Service: Pharmacy Author Type: Pharmacist Type: Consult Progress Note Filed: 03/24/2020 9:12 PM Note Text: PHARMACY VANCOMYCIN DOSING NOTE Patient Name: Letty Trevino Admission Date: 03/20/2020 Date of Consult: 03/24/2020 Time of Consult: 8:58 PM Indication: Skin/Soft tissue infection Goal Range: 10-20 mcg/mL RECOMMENDATIONS/PLAN: Pharmacy consulted for vancomycin dosing for Letty Trevino, a 69 year old, female who is being treated with vancomycin for abdominal wall mass vs. Abscess 1. Patient is currently ordered Vancomycin dosed by level. Today is day 4 of therapy. 2. The most recent vancomycin level was 21.5 mcg/mL drawn at 2009 on 03/24/20. This is a ~24 hour level on the 4 day of therapy. 3. Will decrease vancomycin to 500 mg with a dosing interval of once. Scr elevated from yesterday 4. The next vancomycin level has been ordered for 03/25/20 at 2030 (Completed) We will follow patient renal function, vancomycin levels and doses with you during the course of therapy. Additional recommendations will appear in follow up notes. If you have any questions[place] [phone]. Age: [age] year old Allergies: ALLERGIES Allergen Reactions - Bactrim [Sulfametho* GI Upset - Ciprofloxacin Vomiting - Penicillin G Rash Last 3 Encounter Wt Readings: Date: Wt: 03/20/2020 78.2 kg (172 lb 8 oz) 11/02/2019 89.4 kg (197 lb) 10/07/2019 89.4 kg (197 lb) Last 1 Encounter Ht Readings: Date: Ht: 03/20/2020 149.9 cm (4' 11) CrCl: ~41 mL/min Temp (24hrs), Av.7 ?C (98.1 ?F), Min:36.4 ?C (97.5 ?F), Max:37.2 ?C (99 ?F) - Current Temp: 37.2 ?C (99 ?F) Labs BUN (mg/dL) Date Value 03/24/2020 14 03/23/2020 15 03/22/2020 14 Creatinine (mg/dL) Date Value 03/24/2020 1.56 (H) 03/23/2020 1.48 (H) 03/22/2020 1.59 (H) WBC (thou/cmm) Date Value 03/24/2020 6.61 03/23/2020 7.07 03/23/2020 5.21 Vancomycin Levels: Vancomycin,Random (ug/mL) Date/Time Value 03/24/2020 2010 21.5 (H) 03/23/2020 1420 19.5 MONY VALERIO, PHARMACIST Normal [facility] Folate, RBCon 03-24-2020 Folate, RBC SEE BELOW Normal [facility] Comment on above: Result Comment: Milton tocrit 26.0 L 36.0-46.0 % FOLATE, RBC 383 ng/mL Reference range: >=366 (NOTE) Performed By: [facility] [address] [place] [address] Outdoor Power Equipment Mechanic: Michael Markham MD, MS Performing Laboratory: [facility] [employer] [address] [place] [address] Performed By: #### A BISHOP #### [place] [address] Hemogramon 03-24-2020 Erythrocyte distribution width (RBC) [Ratio] 22.6 % High 11.7-14.4 [facility] Comment on above: Performed By: #### A BISHOP #### [place] [address] Hematocrit (Bld) [Volume fraction] 25.7 % Low 34.1-44.9 [facility] Comment on above: Performed By: #### A BISHOP #### [place] [address] Hemoglobin (Bld) [Mass/Vol] 8.5 g/dL Low 11.2-15.7 [facility] Comment on above: Performed By: #### A BISHOP #### [place] [address] MCH (RBC) [Entitic mass] 36.6 pg High 25.6-32.2 [facility] Comment on above: Performed By: #### A BISHOP #### [place] [address] MCHC (RBC) [Mass/Vol] 33.1 % Normal 31.6-34.8 [facility] Comment on above: Performed By: #### A BISHOP #### [place] [address] MCV (RBC) [Entitic vol] 110.8 fL High 79.4-94.8 [facility] Comment on above: Performed By: #### A BISHOP #### [facility] [address] [place], [place] [address] Platelet mean volume (Bld) [Entitic vol] 9.4 fL Normal 9.4-12.3 [facility] Comment on above: Performed By: #### A BISHOP #### [facility] [address] [place], [place] [address] Platelets (Bld) [#/Vol] 191 thou/cmm Normal 182-369 [facility] Comment on above: Performed By: #### A BISHOP #### [facility] [address] [place], [place] [address] RBC (Bld) [#/Vol] 2.32 mil/cmm Low 3.93-5.22 [facility] Comment on above: Performed By: #### A BISHOP #### [facility] [address] [place] [address] RDW SD 88.2 fl High 36.4-46.3 [facility] Comment on above: Performed By: #### A BISHOP #### [facility] [address] [place], [place] [address] WBC (Bld) [#/Vol] 6.61 thou/cmm Normal 3.98-10.04 [facility] Comment on above: Performed By: #### A BISHOP #### [facility] [address] [place] [address] Methylmalonic Acidon 0821-2 020 Methylmalonic Acid 511 nmol/L High 79-376 [facility] Comment on above: Result Comment: This test was developed and its performance characteristics determined by [facility]'s [facility] ( [facility]). It has not been cleared or approved by the FDA. [facility] is regulated under CLIA as qualified to perform high complexity testing. This test is used for clinical purposes. It should not be regarded as investigational or for research. Performing Laboratory: [place] [address] [place] [address] Performed By: #### A BISHOP #### [place] [address] Misc. Teston 03-24-2020 [facility] Order Code FCRE Normal [facility] Comment on above: Performed By: #### A BISHOP #### [place] [address] Test Name Creatinine Normal [facility] Comment on above: Result Comment: Abdo jasmin abscess aspirate Performed By: #### A BISHOP #### [facility] [address] [place] [address] PLAN OF CAREon 03-24-2020 PLAN OF CARE HNO ID: [id number] Author: Parker Quiroz Service: Vascular Surgery Author Type: Resident Type: Plan of Care Filed: 03/24/2020 8:46 AM Note Text: Vascular Surgery Plan of Care Note SERVICE DATE: 03/24/2020 69 year old female with COPD, uterine cancer s/p hysterectomy, bladder cancer s/p robotic anterior exenteration with ileal conduit and on chemo here with abdominal wall swelling s/p fluid aspiration per urology, unlikely hematoma. New diagnosis of R external iliac and common femoral vein DVT - creatinine from fluid aspiration pending - agree with heparin drip with plan to transition to oral anticoagulation prior to discharge - vascular surgery will sign off at this time. Please call or reconsult with questions SIGNATURE: Parker Quiroz MD PATIENT NAME: Letty Trevino DATE: March 24, 2020 TIME: 8:42 AM Pager: [phone] Vascular and Thoracic Service Pager: For questions or concerns Mon-Fri 6a-5p please page [phone]. After 5pm and on Weekends and Holidays, please page [phone] if in ICU or [phone] if on RNF. Normal [facility] PROGRESSon 03-24-2020 PROGRESS HNO ID: [id number] Author: Gilbert Warner Service: Infectious Disease Author Type: Physician Type: Progress Notes Filed: 03/24/2020 8:30 PM Note Text: PROGRESS NOTE INFECTIOUS DISEASE Subjective Resting in bed Wants to go home. Medications: Current Facility-Administered Medications Medication Dose Route Frequency - loperamide 2 mg cap(s) (IMODIUM) 2 mg ORAL QID PRN - traMADol 50 mg tab(s) (ULTRAM) 50 mg ORAL AT BEDTIME - spironolactone 25 mg tab(s) (ALDACTONE) 25 mg ORAL BID 9a/5p - sodium chloride 0.9 % (flush) 3-5 mL (BD POSIFLUSH) 3-5 mL INTRAVENOUS q 12 H - ondansetron 4 mg tab(s) (ZOFRAN) 4 mg ORAL q 6 H PRN Or - ondansetron (PF) 4 mg injection (ZOFRAN) 4 mg INTRAVENOUS q 6 H PRN - acetaminophen 650 mg tab(s) (TYLENOL) 650 mg ORAL q 6 H PRN - morphine 1-2 mg injection 1-2 mg INTRAVENOUS q 4 H PRN - vancomycin dosing and monitoring per pharmacy OTHER As Directed - cefTRIAXone 1 g in D5W 100 mL MB+ (ROCEPHIN) 1 g INTRAVENOUS q 24 H - haloperidol lactate 2 mg injection (HALDOL) 2 mg INTRAMUSCULAR q 6 H PRN - mirtazapine 15 mg (REMERON) 15 mg ORAL AT BEDTIME - folic acid 1 mg tab(s) 1 mg ORAL DAILY - heparin iv infusion (STANDARD NOMOGRAM) 25,000 units in NaCl 0.45% 250 mL PREMIX 0-3,000 Units/hr INTRAVENOUS CONTINUOUS And - heparin RATE CHANGE bolus 1,000-10,000 Units for subtherapeutic aptt results 1,000-10,000 Units INTRAVENOUS PRN Current Antibiotics: IV Ceftriaxone 1g q24 Current immunosuppressive medications: None Objective Physical Exam: BP 118/53 Pulse 72 Temp 36.6 ?C (97.9 ?F) (Temporal) Resp 18 Ht 149.9 cm (4' 11) Wt 78.2 kg (172 lb 8 oz) SpO2 99% BMI 34.84 kg/m? General: Alert, in no acute distress Head: Normocephalic, atraumatic Neck: supple, trachea is midline, no obvious masses Respiratory: normal effort, no audible wheezes Cardiovascular: regular pulse and no cyanosis Musculoskeletal: moving all extremities, normal tone Skin: warm and dry Psych: normal mood and affect, oriented Abdomen: Full, Soft, moves with respiration, non distended, Ileostomy site on the right lower quadrant Dressing over wound located right to the ileostomy bag, fluctuant, mildly erythematous Mildly tender :?ileal conduit draining yellow urine with sediment. ? Labs: CBC: Recent Labs 03/24/20 0251 03/23/20 1740 03/23/20 0345 03/22/20 0210 03/21/20 1830 03/21/20 0910 03/21/20 0140 WBC 6.61 7.07 5.21 8.38 -- -- 5.46 HB 8.5* 10.1* 8.2* 8.8* 10.4* 8.8* 5.3* HCT 25.7* 30.2* 25.5* 27.2* 29.9* 26.1* 16.0* PLT 191 219 168* 193 -- -- 178* MCV 110.8* 110.2* 109.9* 108.4* -- -- 122.1* COAG: Recent Labs 03/24/20 1610 03/24/20 0900 03/24/20 02503/23/20 1740 APTT 74.0* 85.1* 71.2* 26.4 INR -- -- -- 1.08 BMP: Recent Labs 03/24/20 02503/23/20 0345 03/22/20 0210 03/21/20 0140 GLUC 71* 72* 105* 79 NA 140 142 138 135* K 3.7 4.1 4.5 4.4 CHLOR 107* 107* 103 103 CO2 27 28 27 26 ANION 6* 7* 8* 6* BUN 14 15 14 14 CREAT 1.56* 1.48* 1.59* 1.26* CHEM: Recent Labs 03/24/20 0251 03/23/20 0345 03/22/20 0210 03/21/20 0140 ALB -- -- 1.9* -- TPROT -- -- 5.6* -- CA 8.2* 8.4* 8.4* 8.1* MG -- -- 1.6* -- HEPATIC: Recent Labs 03/22/20 021 ALKPHOS 88 ALT <5* AST 14 TBILI 0.4 URINALYSIS:No results for input(s): PH, SPGR, UGLUC, UBILI, UKET, UHB, UPROT, UROBIL, UWBC, SSA in the last 168 hours. Invalid input(s): NITR CARDIAC: No results for input(s): CKTEST, CKMB, CKMBP in the last 168 hours.TROPONIN@:8,No results found for: BNP:8)@ Intake/Output Summary (Last 24 hours) at 03/24/20202026 Last data filed at 03/24/2020 191 Gross per 24 hour Intake 480 ml Output 1800 ml Net -1320 ml Creatinine clearance cannot be calculated (Unknown ideal weight. ) Microbiology data: None IMAGING: CT Brain 03/21/2020 - No acute intracranial findings. - Left medial parietal parenchymal hypodensity likely represents subacute or chronic infarct. ? US DVT LE 03/21/2020 -Positive study for acute proximal DVT in the distal right external iliac and common femoral veins. The thrombus is nonocclusive. Nondiagnostic study for calf DVT in the left and right lower extremities. Nondiagnostic study for acute superficial thrombophlebitis in the imaged segments of the left and right lower extremities. ? CT ABD 03/21/2020 - No acute intracranial findings. - Left medial parietal parenchymal hypodensity likely represents subacute or chronic infarct. ? MRI Brain 03/22/2020 - No acute process. Negative for acute ischemia/infarct. -Mild chronic microvascular ischemic change throughout the supratentorial white matter. - Mild generalized atrophy. Small chronic right basal ganglia lacunar infarcts. -Small area of presumed post infarct encephalomalacia/gliosi s left occipital lobe associated with mild chronic hemosiderin staining. DATA: Diagnostic Tests Reviewed for Today's Visit: Most recent labs and imaging results. Impression/Recommendati ons This is a 69 year old female?s/p radical cystectomy and ileal conduit for pT4a pN1 bladder cancer with a new finding of right external iliav vein and common femoral DVT being evaluated for ileostomy site mass vs abscess ( urinoma). ? PLAN - Continue ceftriaxone and vancomycin - follow up on the cultures from 03/23 - creatinine from the fluid collection ( r/o urinoma) pending Gilbert Warner MD [facility] PROGRESS HNO ID: [id number] Author: Shonna Alcala MD Service: Hospital Medicine Author Type: Physician Type: Progress Notes Filed: 03/24/2020 3:19 PM Note Text: DEPARTMENT OF HOSPITAL MEDICINE PROGRESS NOTE SERVICE DATE: 03/21/2020 SERVICE TIME: 8:36 AM Hospital Medicine/Primary Attending: Shonna Alcala NIGHT AND WEEKEND COVERAGE: [employer] COVERAGE: From 7am - 7pm, please call sound team color After 7pm, please call cross cover pager #[phone] ? Subjective Patient was seen and examined at bedside No acute events last night She denies any complaints MEDICATIONS: Reviewed Objective PHYSICAL EXAM: BP 118/53 Pulse 72 Temp (Src) 97.9 (Temporal) Resp 18 Ht 4' 11 (1.50m) Wt 172 lb 8 oz (78.2kg) SpO2 99% BMI 34.82 kg/(m2). O2 Therapy: Room Air Physical Exam Performed GENERAL: Alert, no distress, cooperative HEAD/SINUSES: No significant findings EYES: PERRLA, EOMI OROPHARYNX: Lips, mucosa, and tongue normal. Teeth and gums normal. Oropharynx normal. LUNGS: Lungs clear to auscultation, Good diaphragmatic excursion CARDIAC: Normal S1 and S2; no rubs, murmurs, or gallops ABDOMEN: soft large baseball size mass right lateral to ileostomy ttp with erythema. firm. drainage from ileostomy. EXTREMITIES: 1+ edema of bilat leg L>R with calf pain NEURO: Grossly normal cognition, motor function, and cranial nerves III-XII Lines, Drains, and Airways Line Implanted Vascular Access Device Single Port Right Chest -- days Drain Drain/Tube Stoma Hall -- days Reviewed lines and needs to be continued: REASONS: Difficulty in obtaining/maintaining access DATA: Diagnostic tests reviewed for today's visit: Most recent labs and imaging results. Assessment/Plan 1. Abdominal wall mass : on consult. Fluid collection was aspirated today at bedside and sent for culture, gram stain, negative so far No blood aspirated, will resume anticoagulation /heparin gtt at this time and plan to switch to Oral anticoagulation on discharge. Appreciate urology input, possible drain placement. 2. Metastatic bladder cancer: lymph node involvement. on consult. Had cystectomy and ileostomy 10/2019. S/P radiation in 12/2019. Stevo pat notes also undergoing chemo. Oncology on board 3. Anemia, acute on chronic: due to blood loss and chemo. transfuse and recheck labs. Monitor H/H closely. Hematology oncology consult. consult. 4. R oblique hematoma: noted to be significantly worsening on CT scan. Will need close monitoring. Transfuse. No anticoag or asa. 5. Left leg edema and calf pain: US positive for DVT, HEM/ONC on board, on heparin gtt 6. SOO: IV fluids.renal US ordred 7. Hepatic steatosis 8. Adrenal lesion possible adenoma Medication and Non-Pharmacologic VTE Prophylaxis/Anticoagula nts Anticoagulant AND Antiplatelet Medications (From admission, onward) Start Dose Route Frequency Ordered Stop 03/23/20 1730 heparin iv infusion (STANDARD NOMOGRAM) 25,000 units in NaCl 0.45% 250 mL PREMIX (Heparin Infusion + Rate Change Bolus) 0-30 mL/hr 0-3,000 Units/hr INTRAVENOUS CONTINUOUS 03/23/20 1716 -- 03/21/20 0745 pneumatic compression stockings ([place], [place]) 03/21/20 0130 vte pharmacologic prophylaxis contraindicated ([place], [place]) 03/21/20 0130 vte non-pharmacologic prophylaxis - none indicated ([place], [place]) 03/21/20 013 activity - mobilize patient ([place], [place]) VTE Prophylaxis: Contraindicated due to anemia and worsening hematoma Disposition: To be determined Plan of care discussed with: Provider, RN, Patient SIGNATURE: Mahnaz Maciel DO PATIENT NAME: Letty Trevino DATE: March 21, 2020 TIME: 8:36 AM PAGER/CONTACT #: davion vera [facility] PROGRESS HNO ID: [id number] Author: Brenda (Rn) LUIS Kearney Service: Ostomy Author Type: Registered Nurse Type: Progress Notes Filed: 03/24/2020 11:23 AM Note Text: Summary: Ostomy care OSTOMY CARE PROGRESS NOTE SERVICE DATE: 03/24/2020 SERVICE TIME: 957 REASON FOR CONSULT: Ostomy care and supplies TIME SPENT (minutes): 5 driving teacher attempted to change urostomy pouch today. Patient continues to refuse. Stoma pouches at nursing desk, Ordered wafers up from central. Unable to find the one pouching system at her bedside. If bedside RN needs to change pouch - cut wafer to size of stoma, apply barrier ring to back of wafer, Apply wafer, adhere adhesive urostomy pouch. Updated bedside RNAlyssa, that patient continues to refuse. SIGNATURE: Brenda Kearney RN [facility] PATIENT NAME: Letty Wagnerdocmonico Castilloelodia DATE: March 24, 2020 TIME: 11:21 AM CONTACT#: [id number] [facility] Vancomycin,Randomon 03-24-20 20 INR Coag (Bld) [Relative time] 21.5 ug/mL High 10.0-20.0 [facility] Comment on above: Result Comment: Refe rence ranges and high/low indicator flags are provided as general guidelines only. The treating physician must determine appropriate target levels/dosing based on the specific clinical situation. Performed By: #### A BISHOP #### [place] [address] ALLIED HEALTHon 03-23-2020 ALLIED HEALTH HNO ID: [id number] Author: Brenda POOLE Service: Music Therapy Author Type: ? Type: Allied Health Filed: 03/23/2020 11:30 AM Note Text: MUSIC THERAPY NOTE SERVICE DATE: 03/23/2020 SERVICE TIME: 1105 Pt presented in bed with a neutral affect and calm manner, declining music therapy at this time. Pt expressing some complaints regarding her hospitalization with music therapist, stating she's going home soon. Will continue to follow. SIGNATURE[facility] NAME: Letty Trevino DATE: March 23, 2020 TIME: 11:28 AM PAGER/CONTACT #: P: [phone] Normal [facility] Activated PTTon 03-23-2020 aPTT Coag (Bld) [Time] 26.4 s Normal 23.0-32.4 [facility] Comment on above: Result Comment: Unfr actionated Heparin Therapeutic Ranges: Standard Heparin Nomogram: 53 to 78 seconds (anti-Xa level of 0.3 to 0.7 U/mL) Low Dose/ACS Nomogram: 49 to 67 seconds (anti-Xa level of 0.2 to 0.5 U/mL) Stroke Treatment Nomogram: 49 to 67 seconds (anti-Xa level of 0.2 to 0.5 U/mL) Note: The APTT therapeutic range has been determined for the current lot of laboratory APTT reagent in use throughout the [facility]. Performed By: #### T &S #### [place] [address] Basic Metabolic Panelon 03-05 Anion gap [Moles/Vol] 7 mmol/L Low 9-18 [facility] Comment on above: Performed By: #### T &S #### [facility] [address] [place], [place] [address] Calcium [Mass/Vol] 8.4 mg/dL Low 8.5-10.2 [facility] Comment on above: Performed By: #### T &S #### [facility] [address] [place], [place] [address] Chloride [Moles/Vol] 107 mmol/L High 97-105 [facility] Comment on above: Performed By: #### T &S #### [facility] [address] [place], [place] [address] CO2 Blood 28 mmol/L Normal 22-30 [facility] Comment on above: Performed By: #### T &S #### [facility] [address] [place], [place] [address] Creatinine [Mass/Vol] 1.48 mg/dL High 0.58-0.96 [facility] Comment on above: Performed By: #### T &S #### [facility] [address] [place], [place] [address] Glucose [Mass/Vol] 72 mg/dL Low 74-99 [facility] Comment on above: Result Comment: The [place] [employer] (ADA) provides guidance for cutoff values for fasting glucose and random glucose. The ADA defines fasting as no caloric intake for at least 8 hours.Fasting plasma glucose results between 100 to 125 mg/dL indicate increased risk for diabetes (prediabetes). Fasting plasma glucose results greater than or equal to 126 mg/dL meet the criteria for diagnosis of diabetes. In the absence of unequivocal hyperglycemia, results should be confirmed by repeat testing. In a patient with classic symptoms of hyperglycemia or hyperglycemic crisis, random plasma glucose results greater than or equal to 200 mg/dL meet the criteria for diagnosis of diabetes. Reference: Standards of Medical Care in Diabetes 2016; [place] [employer]. Diabetes Care. 2016;39(Suppl 1). Performed By: #### T &S #### [facility] [address] [place], [place] [address] Potassium [Moles/Vol] 4.1 mmol/L Normal 3.7-5.1 [facility] Comment on above: Performed By: #### T &S #### [facility] [address] [place], [place] [address] Sodium [Moles/Vol] 142 mmol/L Normal 136-144 [facility] Comment on above: Performed By: #### T &S #### [facility] [address] [place], [place] [address] Urea nitrogen [Mass/Vol] 15 mg/dL Normal 7-21 [facility] Comment on above: Performed By: #### T &S #### [facility] [address] [place], [place] [address] CONSULT PROGon 03-23-2020 CONSULT PROG HNO ID: [id number] Author: Bryant Truong (Pharmacist) Service: Pharmacy Author Type: Pharmacist Type: Consult Progress Note Filed: 03/23/2020 3:16 PM Note Text: PHARMACY VANCOMYCIN DOSING NOTE Patient Name: Letty Trevino Admission Date: 03/20/2020 Date of Consult: 03/23/2020 Time of Consult: 3:09 PM Indication: Skin/Soft tissue infection Goal Range: 10-20 mcg/mL RECOMMENDATIONS/PLAN: Pharmacy consulted for vancomycin dosing for Letty Trevino, a 69 year old, female who is being treated with vancomycin for abdominal wall mass vs. Abscess 1. Patient is currently ordered Vancomycin dosed by level. Today is day 3 of therapy. 2. The most recent vancomycin level was 19.5 mcg/mL drawn at 1420 on 03/23/20. This is a ~23 hour level on the 3rd day of therapy. 3. The present dose of vancomycin is the recommended dosage for this patient at this time. Continue therapy as prescribed. Patient's Scr is slowly starting to improve and was also given ~25mg/kg loading dose (2 gram dose). Will redose with 1g tonight to give the level some time to come down, since patient is clearing some vancomycin. 4. The next vancomycin level has been ordered for 03/24/20 at 2000 (Completed) We will follow patient renal function, vancomycin levels and doses with you during the course of therapy. Additional recommendations will appear in follow up notes. If you have any [place] [phone]. Age: [age] year old Allergies: ALLERGIES Allergen Reactions - Bactrim [Sulfametho* GI Upset - Ciprofloxacin Vomiting - Penicillin G Rash Last 3 Encounter Wt Readings: Date: Wt: 03/20/2020 79.8 kg (175 lb 14.8 oz) 11/02/2019 89.4 kg (197 lb) 10/07/2019 89.4 kg (197 lb) Last 1 Encounter Ht Readings: Date: Ht: 03/20/2020 149.9 cm (4' 11) CrCl: ~33.5 mL/min Temp (24hrs), Av.8 ?C (98.2 ?F), Min:36.4 ?C (97.5 ?F), Max:37 ?C (98.6 ?F) - Current Temp: 36.4 ?C (97.5 ?F) Labs BUN (mg/dL) Date Value 03/23/2020 15 03/22/2020 14 03/21/2020 14 Creatinine (mg/dL) Date Value 03/23/2020 1.48 (H) 03/22/2020 1.59 (H) 03/21/2020 1.26 (H) WBC (thou/cmm) Date Value 03/23/2020 5.21 03/22/2020 8.38 03/21/2020 5.46 Vancomycin Levels: Vancomycin,Random (ug/mL) Date/Time Value 03/23/2020 1420 19.5 03/22/2020 0645 16.7 BRYANT TRUONG, PHARMACIST Normal [facility] Creatinine, Fluidon 03-23-20 20 Specimen type Nom (Spec) subcutanious fl Normal [facility] Comment on above: Performed By: #### T &S #### [place] [address] Cult and Smr Aerobicon 03-23 Cult and Smr Aerobic Test performed at A [facility] No growth No organisms seen No WBC seen Many RBCs Normal [facility] Comment on above: Performed By: #### T &S #### [facility] [address] [place] [id number] Hemogramon 03-23-2020 Erythrocyte distribution width (RBC) [Ratio] 22.5 % High 11.7-14.4 [facility] Comment on above: Performed By: #### A BISHOP #### [facility] [address] [place], [place] [address] Hematocrit (Bld) [Volume fraction] 30.2 % Low 34.1-44.9 [facility] Comment on above: Performed By: #### A BISHOP #### [facility] [address] [place], [place] [address] Hemoglobin (Bld) [Mass/Vol] 10.1 g/dL Low 11.2-15.7 [facility] Comment on above: Performed By: #### A BISHOP #### [facility] [address] [place] [address] MCH (RBC) [Entitic mass] 36.9 pg High 25.6-32.2 [facility] Comment on above: Performed By: #### A BISHOP #### [facility] [address] [place] [address] MCHC (RBC) [Mass/Vol] 33.4 % Normal 31.6-34.8 [facility] Comment on above: Performed By: #### A BISHOP #### [facility] [address] [place] [address] MCV (RBC) [Entitic vol] 110.2 fL High 79.4-94.8 [facility] Comment on above: Performed By: #### A BISHOP #### [facility] [address] [place] [address] Platelet mean volume (Bld) [Entitic vol] 9.0 fL Low 9.4-12.3 [facility] Comment on above: Performed By: #### A BISHOP #### [facility] [address] [place] [address] Platelets (Bld) [#/Vol] 219 thou/cmm Normal 182-369 [facility] Comment on above: Performed By: #### A BISHOP #### [facility] [address] [place] [address] RBC (Bld) [#/Vol] 2.74 mil/cmm Low 3.93-5.22 [facility] Comment on above: Performed By: #### A BISHOP #### [facility] [address] [place] [address] RDW SD 88.0 fl High 36.4-46.3 [facility] Comment on above: Performed By: #### A BISHOP #### [facility] [address] [place] [address] WBC (Bld) [#/Vol] 7.07 thou/cmm Normal 3.98-10.04 [facility] Comment on above: Performed By: #### A BISHOP #### [facility] [address] [place] [address] Erythrocyte distribution width (RBC) [Ratio] 23.0 % High 11.7-14.4 [facility] Comment on above: Performed By: #### T &S #### [place] [address] Hematocrit (Bld) [Volume fraction] 25.5 % Low 34.1-44.9 [facility] Comment on above: Performed By: #### T &S #### [place] [address] Hemoglobin (Bld) [Mass/Vol] 8.2 g/dL Low 11.2-15.7 [facility] Comment on above: Performed By: #### T &S #### [place] [address] MCH (RBC) [Entitic mass] 35.3 pg High 25.6-32.2 [facility] Comment on above: Performed By: #### T &S #### [place] [address] MCHC (RBC) [Mass/Vol] 32.2 % Normal 31.6-34.8 [facility] Comment on above: Performed By: #### T &S #### [facility] [address] [place] [address] MCV (RBC) [Entitic vol] 109.9 fL High 79.4-94.8 [facility] Comment on above: Performed By: #### T &S #### [place] [address] Platelet mean volume (Bld) [Entitic vol] 9.6 fL Normal 9.4-12.3 [facility] Comment on above: Performed By: #### T &S #### [facility] [address] [place] [id number] Platelets (Bld) [#/Vol] 168 thou/cmm Low 182-369 [facility] Comment on above: Performed By: #### T &S #### [facility] [address] [place] [address] RBC (Bld) [#/Vol] 2.32 mil/cmm Low 3.93-5.22 [facility] Comment on above: Performed By: #### T &S #### [facility] [address] [place] [address] RDW SD 87.7 fl High 36.4-46.3 [facility] Comment on above: Performed By: #### T &S #### [facility] [address] [place] [address] WBC (Bld) [#/Vol] 5.21 thou/cmm Normal 3.98-10.04 [facility] Comment on above: Performed By: #### T &S #### [facility] [address] [place] [address] PLAN OF CAREon 03-23-2020 PLAN OF CARE HNO ID: [id number] Author: Parker Quiroz Service: Vascular Surgery Author Type: Resident Type: Plan of Care Filed: 03/23/2020 1:50 PM Note Text: Attestation signed by Dillon Nix at 03/25/2020 10:36 AM I personally saw and examined the patient on 03/23/2020. I reviewed the resident's note. I agree with the resident's assessment and plan unless otherwise noted. Vascular Surgery Plan of Care Note SERVICE DATE: 03/23/2020 Vascular and Thoracic Service Pager: For questions or concerns Mon-Fri 6a-5p please page [phone]. After 5pm and on Weekends and Holidays, please page [phone] if in ICU or [phone] if on RNF. Subjective SUBJECTIVE: IR consult placed, but actual order for drain placement not seen. It is now ordered this AM. Objective OBJECTIVE: Vitals: Temp (24hrs), Av.9 ?C (98.4 ?F), Min:36.7 ?C (98.1 ?F), Max:37 ?C (98.6 ?F) BP (!) 120/47 Pulse 74 Temp 36.9 ?C (98.4 ?F) (Oral) Resp 16 Ht 149.9 cm (4' 11) Wt 79.8 kg (175 lb 14.8 oz) SpO2 96% BMI 35.53 kg/m? O2 Therapy: Room Air IANDO: Date 03/22/20699 - 03/23/2065803/23/20699 - 03/24/20 0659 Shift 6343-8440 7340-7299 8508-3523 24 Hour Total 6561-7628 7830-0452 7395-4554 24 Hour Total INTAKE Shift Total OUTPUT Tubes 750 1025 1775 Drain/Tube Output (Drain/Tube [place]) 750 1025 1775 Shift Total 750 1025 1775 Weight (kg) 79.8 79.8 79.8 79.8 79.8 79.8 79.8 79.8 MEDICATIONS Current Facility-Administered Medications Medication Dose Route Frequency - lactated ringers infusion 75 mL/hr INTRAVENOUS CONTINUOUS - haloperidol lactate 2 mg injection (HALDOL) 2 mg INTRAMUSCULAR q 6 H PRN - mirtazapine 15 mg (REMERON) 15 mg ORAL AT BEDTIME - folic acid 1 mg tab(s) 1 mg ORAL DAILY - loperamide 2 mg cap(s) (IMODIUM) 2 mg ORAL QID PRN - traMADol 50 mg tab(s) (ULTRAM) 50 mg ORAL AT BEDTIME - spironolactone 25 mg tab(s) (ALDACTONE) 25 mg ORAL BID 9a/5p - sodium chloride 0.9 % (flush) 3-5 mL (BD POSIFLUSH) 3-5 mL INTRAVENOUS q 12 H - ondansetron 4 mg tab(s) (ZOFRAN) 4 mg ORAL q 6 H PRN Or - ondansetron (PF) 4 mg injection (ZOFRAN) 4 mg INTRAVENOUS q 6 H PRN - acetaminophen 650 mg tab(s) (TYLENOL) 650 mg ORAL q 6 H PRN - morphine 1-2 mg injection 1-2 mg INTRAVENOUS q 4 H PRN - vancomycin dosing and monitoring per pharmacy OTHER As Directed - cefTRIAXone 1 g in D5W 100 mL MB+ (ROCEPHIN) 1 g INTRAVENOUS q 24 H Labs: Recent Labs 03/23/20 0345 03/22/20 0210 NA 142 138 K 4.1 4.5 CHLOR 107* 103 CO2 28 27 BUN 15 14 CREAT 1.48* 1.59* GLUC 72* 105* ANION 7* 8* CA 8.4* 8.4* MG -- 1.6* ALB -- 1.9* AST -- 14 ALT -- <5* ALKPHOS -- 88 TBILI -- 0.4 WBC 5.21 8.38 HB 8.2* 8.8* HCT 25.5* 27.2* PLT 168* 193 Exam: - Due to the ongoing coronavirus pandemic, a physical exam was not performed in order to decrease exposure risk. ASSESSMENT AND PLAN: Active Hospital Problems Diagnosis Date Noted - Abdominal wall abscess 03/21/2020 Assessment: 69 year old female with COPD, uterine cancer s/p hysterectomy, bladder cancer s/p robotic anterior exenteration with ileal conduit and on chemo here with abdominal wall swelling - mass vs abscess vs hematoma vs urinoma vs seroma; anemia, and new diagnosis of R external iliac and common femoral vein DVT ? Plan: - pt made NPO/IVF for procedure - check PT/INR - ID drain placement/aspiration ordered - recommend systemic anticoagulation for DVT - will hold off on IVC filter placement unless pt develops intolerance of systemic anticoagulation SIGNATURE: Parker Quiroz MD PATIENT NAME: Letty Trevino DATE: March 23, 2020 TIME: 9:13 AM Pager: [phone] Addendum 03/23/20 1:42 PM Discussed patient with urology resident Dr Mireles who states they were able to aspirate serous appearing fluid and sent for labs. Based on their aspiration, there was no evidence of hematoma. We will await results of these fluid studies. Cancelling IR aspiration. May resume pt's diet. Still recommend systemic anticoagulation. Will discuss w/ Sound attending Parker Quiroz MD General Surgery Resident, PGY4 March 23, 2020 1:42 PM Pager: Vascular and Thoracic Service Pager: For questions or concerns Mon-Fri 6a-5p please page [phone]. After 5pm and on Weekends and Holidays, please page [phone] if in ICU or [phone] if on RNF. [facility] PROCEDUREon 03-23-2020 PROCEDURE HNO ID: [id number] Author: Shailesh Yin Service: Urology Author Type: Physician Type: Procedures Filed: 03/29/2020 8:10 AM Note Text: Indication: - patient with subcutaneous fluid collection several months post-operative from cystectomy and ileal conduit creation Procedure details: Verbal consent was obtained from the patient. The region of interest on the right side of the abdomen was prepped with Betadine. An 18 gauge angiocatheter needle was inserted into the protrusion of the patient's abdominal wall. 20cc serosanguinous fluid was aspirated (serous>sanguinous). This was sent for body fluid creatinine and culture/stain. The patient tolerated the procedure well. The site was dressed with 4x4 gauze, Tegaderm, and tape. Nick Mireles MD Urology, PGY-2 March 23, 2020 2:12 PM Pager: [phone] I was present for the entire surgery including the critical and musa portions of the surgery and I was immediately available to provide assistance. Shailehs Yin DO, MBA [facility] PROGRESSon 03-23-2020 PROGRESS HNO ID: [id number] Author: Shonna Alcala MD Service: Hospital Medicine Author Type: Physician Type: Progress Notes Filed: 03/23/2020 5:17 PM Note Text: DEPARTMENT OF HOSPITAL MEDICINE PROGRESS NOTE SERVICE DATE: 03/21/2020 SERVICE TIME: 8:36 AM Hospital Medicine/Primary Attending: Shonna Alcala NIGHT AND WEEKEND COVERAGE: [place] COVERAGE: From 7am - 7pm, please call sound team color After 7pm, please call cross cover pager #[phone] ? Subjective Patient was seen and examined at bedside No acute events last night She denies any complaints MEDICATIONS: Reviewed Objective PHYSICAL EXAM: BP 91/37 Pulse 68 Temp (Src) 97.5 (Oral) Resp 16 Ht 4' 11 (1.50m) Wt 175 lb 14.8 oz (79.8kg) SpO2 100% BMI 35.51 kg/(m2). O2 Therapy: Room Air Physical Exam Performed GENERAL: Alert, no distress, cooperative HEAD/SINUSES: No significant findings EYES: PERRLA, EOMI OROPHARYNX: Lips, mucosa, and tongue normal. Teeth and gums normal. Oropharynx normal. LUNGS: Lungs clear to auscultation, Good diaphragmatic excursion CARDIAC: Normal S1 and S2; no rubs, murmurs, or gallops ABDOMEN: soft large baseball size mass right lateral to ileostomy ttp with erythema. firm. drainage from ileostomy. EXTREMITIES: 1+ edema of bilat leg L>R with calf pain NEURO: Grossly normal cognition, motor function, and cranial nerves III-XII Lines, Drains, and Airways Line Implanted Vascular Access Device Single Port Right Chest -- days Drain Drain/Tube [place] -- days Reviewed lines and needs to be continued: REASONS: Difficulty in obtaining/maintaining access DATA: Diagnostic tests reviewed for today's visit: Most recent labs and imaging results. Assessment/Plan 1. Abdominal wall mass : on consult. Fluid collection was aspirated today at bedside and sent for culture, gram stain. No blood aspirated, will resume anticoagulation /heparin gtt at this time and plan to switch to Oral anticoagulation on discharge 2. Metastatic bladder cancer: lymph node involvement. on consult. Had cystectomy and ileostomy 10/2019. S/P radiation in 12/2019. Per bi notes also undergoing chemo. Oncology on board 3. Anemia, acute on chronic: due to blood loss and chemo. transfuse and recheck labs. Monitor H/H closely. Hematology oncology consult. consult. 4. R oblique hematoma: noted to be significantly worsening on CT scan. Will need close monitoring. Transfuse. No anticoag or asa. 5. Left leg edema and calf pain: US positive for DVT, HEM/ONC on board 6. SOO: IV fluids. 7. Hepatic steatosis 8. Adrenal lesion possible adenoma Medication and Non-Pharmacologic VTE Prophylaxis/Anticoagula nts Anticoagulant AND Antiplatelet Medications (From admission, onward) Start Dose Route Frequency Ordered Stop 03/23/20 1700 heparin iv infusion 25,000 units in 0.45% NaCl 250 mL PREMIX 2.5 mL/hr 250 Units/hr INTRAVENOUS CONTINUOUS 03/23/20 1658 -- 03/21/20 0745 pneumatic compression stockings (pa,tn) 03/21/20 0130 vte pharmacologic prophylaxis contraindicated ([place], [place]) 03/21/20 0130 vte non-pharmacologic prophylaxis - none indicated ([place], [place]) 03/21/20 013 activity - mobilize patient ([place], [place]) VTE Prophylaxis: Contraindicated due to anemia and worsening hematoma Disposition: To be determined Plan of care discussed with: Provider, RN, Patient SIGNATURE: Mahnaz Maciel DO PATIENT NAME: Letty Trevino DATE: March 21, 2020 TIME: 8:36 AM PAGER/CONTACT #: davion vera [facility] PROGRESS HNO ID: [id number] Author: Brenda (Rn) LUIS Kearney Service: Ostomy Author Type: Registered Nurse Type: Progress Notes Filed: 03/23/2020 2:11 PM Note Text: Summary: ostomy OSTOMY CARE PROGRESS NOTE SERVICE DATE: 03/23/2020 SERVICE TIME: 1335 REASON FOR CONSULT: ostomy care and supplies TIME SPENT (minutes): 5 Bedside RN paged vp emerging media to notify that urostomy pouch has not been changed since Friday, and was not changed two days ago. Requesting for pouch change. This RN went to see patient. Patient is continuing to refuse to have pouch changed. Urostomy pouch currently intact. Appears to have some moisture under the wafer, but pouch is intact with yellow urine with mucous shreds. Will follow-up with patient tomorrow about pouch change. Updated bedside RNClara. 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 Patient reports pouch already changed yesterday. Extra pouching system at bedside. She states that she will be discharged today. Denies any further needs SIGNATURE: Brenda Kearney RN CWOCN PATIENT NAME: Letty Trevino DATE: March 23, 2020 TIME: 10:34 AM CONTACT#: [id number] [facility] PROGRESS HNO ID: [id number] Author: Gilbert Warner Service: Infectious Disease Author Type: Physician Type: Progress Notes Filed: 03/23/2020 10:10 PM Note Text: PROGRESS NOTE INFECTIOUS DISEASE SERVICE DATE: 03/23/2020 SERVICE TIME: 9:06 AM Subjective This is a 69 year old female?s/p radical cystectomy and ileal conduit for pT4a pN1 bladder cancer being evaluated for ileostomy site mass vs abscess. Interval Events: 03/23: BP soft, other vitals stable. Swelling, pain. Denies fever, chills, chest pain, shortness of breath or change in bowel movements. Serous appearing fluid was aspirated from the mass close to the ileostomy site and sent for SERENE creatinine and culture/ stain. Medications: Current Facility-Administered Medications Medication Dose Route Frequency - loperamide 2 mg cap(s) (IMODIUM) 2 mg ORAL QID PRN - traMADol 50 mg tab(s) (ULTRAM) 50 mg ORAL AT BEDTIME - spironolactone 25 mg tab(s) (ALDACTONE) 25 mg ORAL BID 9a/5p - sodium chloride 0.9 % (flush) 3-5 mL (BD POSIFLUSH) 3-5 mL INTRAVENOUS q 12 H - ondansetron 4 mg tab(s) (ZOFRAN) 4 mg ORAL q 6 H PRN Or - ondansetron (PF) 4 mg injection (ZOFRAN) 4 mg INTRAVENOUS q 6 H PRN - acetaminophen 650 mg tab(s) (TYLENOL) 650 mg ORAL q 6 H PRN - morphine 1-2 mg injection 1-2 mg INTRAVENOUS q 4 H PRN - vancomycin dosing and monitoring per pharmacy OTHER As Directed - cefTRIAXone 1 g in D5W 100 mL MB+ (ROCEPHIN) 1 g INTRAVENOUS q 24 H - haloperidol lactate 2 mg injection (HALDOL) 2 mg INTRAMUSCULAR q 6 H PRN - mirtazapine 15 mg (REMERON) 15 mg ORAL AT BEDTIME - folic acid 1 mg tab(s) 1 mg ORAL DAILY Current Antibiotics: IV Ceftriaxone 1g q24 Current immunosuppressive medications: None Objective Physical Exam: BP (!) 120/47 Pulse 74 Temp 36.9 ?C (98.4 ?F) (Oral) Resp 16 Ht 149.9 cm (4' 11) Wt 79.8 kg (175 lb 14.8 oz) SpO2 96% BMI 35.53 kg/m? General: Alert, in no acute distress Head: Normocephalic, atraumatic Neck: supple, trachea is midline, no obvious masses Respiratory: normal effort, no audible wheezes Cardiovascular: regular pulse and no cyanosis Musculoskeletal: moving all extremities, normal tone Skin: warm and dry Psych: normal mood and affect, oriented Abdomen: Full, Soft, moves with respiration, non distended, Ileostomy site on the right lower quadrant Dressing over wound located right to the ileostomy bag, fluctuant, mildly erythematous Mildly tender :?ileal conduit draining yellow urine with sediment. ? Labs: CBC: Recent Labs 03/23/20 0345 03/22/20 0210 03/21/20 1830 03/21/20 0910 03/21/20 0140 WBC 5.21 8.38 -- -- 5.46 HB 8.2* 8.8* 10.4* 8.8* 5.3* HCT 25.5* 27.2* 29.9* 26.1* 16.0* PLT 168* 193 -- -- 178* MCV 109.9* 108.4* -- -- 122.1* COAG: No results for input(s): APTT, INR in the last 168 hours. BMP: Recent Labs 03/23/20 0345 03/22/20 0210 03/21/20 0140 GLUC 72* 105* 79 NA 142 138 135* K 4.1 4.5 4.4 CHLOR 107* 103 103 CO2 28 27 26 ANION 7* 8* 6* BUN 15 14 14 CREAT 1.48* 1.59* 1.26* CHEM: Recent Labs 03/23/20 0345 03/22/20 0210 03/21/20 0140 ALB -- 1.9* -- TPROT -- 5.6* -- CA 8.4* 8.4* 8.1* MG -- 1.6* -- HEPATIC: Recent Labs 03/22/20 0210 ALKPHOS 88 ALT <5* AST 14 TBILI 0.4 URINALYSIS:No results for input(s): PH, SPGR, UGLUC, UBILI, UKET, UHB, UPROT, UROBIL, UWBC, SSA in the last 168 hours. Invalid input(s): NITR CARDIAC: No results for input(s): CKTEST, CKMB, CKMBP in the last 168 hours.TROPONIN@:8,No results found for: BNP:8)@ Intake/Output Summary (Last 24 hours) at 03/23/2020 0913 Last data filed at 03/23/2020 0557 Gross per 24 hour Intake ? Output 1775 ml Net -1775 ml Creatinine clearance cannot be calculated (Unknown ideal weight. ) Microbiology data: None IMAGING: CT Brain 03/21/2020 - No acute intracranial findings. - Left medial parietal parenchymal hypodensity likely represents subacute or chronic infarct. ? US DVT LE 03/21/2020 -Positive study for acute proximal DVT in the distal right external iliac and common femoral veins. The thrombus is nonocclusive. Nondiagnostic study for calf DVT in the left and right lower extremities. Nondiagnostic study for acute superficial thrombophlebitis in the imaged segments of the left and right lower extremities. ? CT ABD 03/21/2020 - No acute intracranial findings. - Left medial parietal parenchymal hypodensity likely represents subacute or chronic infarct. ? MRI Brain 03/22/2020 - No acute process. Negative for acute ischemia/infarct. -Mild chronic microvascular ischemic change throughout the supratentorial white matter. - Mild generalized atrophy. Small chronic right basal ganglia lacunar infarcts. -Small area of presumed post infarct encephalomalacia/gliosi s left occipital lobe associated with mild chronic hemosiderin staining. DATA: Diagnostic Tests Reviewed for Today's Visit: Most recent labs and imaging results. Impression/Recommendati ons This is a 69 year old female?s/p radical cystectomy and ileal conduit for pT4a pN1 bladder cancer with a new finding of right external iliav vein and common femoral DVT being evaluated for ileostomy site mass vs abscess. ? PLAN - Continue ceftriaxone and vancomycin - Consider Oral Cefdinir and doxy empirically for 2 weeks at discharge - For systemic DVT anti coagulation per vascular surgery recommendations - We would continue to follow up the patient. Resolved Problems: * No resolved hospital problems. * Medication and Non-Pharmacologic VTE Prophylaxis/Anticoagula nts 03/21/20129 vte pharmacologic prophylaxis contraindicated (pa,oh) 03/21/20129 vte non-pharmacologic prophylaxis - none indicated (pa,oh) 03/21/20129 activity - mobilize patient (pa,tn) VTE Prophylaxis: VTE prophylaxis appropriate SIGNATURE: Dameon Campo MD PATIENT NAME: Letty Trevino DATE: March 23, 2020 TIME: 9:06 AM PAGER/CONTACT #: [phone] Seen and examined independently. Agree fully w above notes as documented by the resident. Gilbert Warner MD, AVA 03/23/2020 10:10 PM [facility] PROGRESS HNO ID: [id number] Author: Shailesh Yin Service: Urology Author Type: Physician Type: Progress Notes Filed: 03/29/2020 8:09 AM Note Text: UROLOGY PROGRESS NOTE PATIENT NAME: Letty Trevino DATE OF : 1950 ADMISSION DATE: 03/20/2020 10:57 PM Subjective No acute events overnight. The patient is anxious to go home She denies fevers, chills, nausea and vomiting Stoma has mucous covering and yellow urine output Objective VS: BP (!) 120/47 Pulse 74 Temp 36.9 ?C (98.4 ?F) (Oral) Resp 16 Ht 149.9 cm (4' 11) Wt 79.8 kg (175 lb 14.8 oz) SpO2 96% BMI 35.53 kg/m? I AND O - 24hr: Intake/Output Summary (Last 24 hours) at 03/23/2020 0846 Last data filed at 03/23/2020 0557 Gross per 24 hour Intake ? Output 1775 ml Net -1775 ml Physical Exam: General: Neck: Resp: Abdomen: No acute distress Supple Normal effort Soft, non-tender, superficial induration region to the right of the ileal conduit, serous fluid aspirated : Stoma covered with mucous, yellow urine output from ileal conduit, no cva tenderness Labs and Imaging Studies LABS: BMP: Glucose (mg/dL) Date Value 03/23/2020 72 Potassium (mmol/L) Date Value 03/23/2020 4.1 Sodium (mmol/L) Date Value 03/23/2020 142 Chloride (mmol/L) Date Value 03/23/2020 107 CO2 (mmol/L) Date Value 03/23/2020 28 Creatinine (mg/dL) Date Value 03/23/2020 1.48 BUN (mg/dL) Date Value 03/23/2020 15 Anion Gap (mmol/L) Date Value 03/23/2020 7 Calcium (mg/dL) Date Value 03/23/2020 8.4 CBC: HGB (g/dL) Date Value 03/23/2020 8.2 Hematocrit (%) Date Value 03/23/2020 25.5 WBC (thou/cmm) Date Value 03/23/2020 5.21 Platelet Count (thou/cmm) Date Value 03/23/2020 168 Urinalysis: PH (I-STAT) Date Value Ref Range Status 10/13/2019 7.419 7.350 - 7.450 Final Urine Culture: No results found for: URCUL RADIOLOGY: CT A/P: CT Abd: - 8x4cm fluid collection on right side of abdomen that is subcutaneous, not intraperitoneal - very mild bilateral hydroureteronephrosis to the level of the conduit, expected with ileal conduit Assessment and Plan ASSESSMENT: 69 year old female s/p radical cystectomy and ileal conduit for pT4a pN1 bladder cancer who presents with subcutaneous fluid collection, anemia, and SOO PLAN: - at bedside, the superficial fluid collection to the right of the ileal conduit was aspirated and sent for SERENE creatinine and culture/stain - creatinine elevated above baseline - Imaging shows mild bilateral hydronephrosis, expected with presence of ileal conduit - no leukocytosis - hgb stable - ok for anticoagulation for DVT as fluid collection not hematoma, more likely seroma - IR drain placement would be reasonable option - discussed with Dr. Humphrey Mireles MD Urology, PGY-2 March 23, 2020 2:06 PM Pager: [phone] Attending Note I evaluated the patient and personally participated in the musa components. I agree with the resident's findings and plan as documented and have discussed the case and management of the patient's care with the resident. Signature: Shailesh Yin DO, MBA Date: 03/29/2020 Time: 8:09 AM [facility] Protimeon 03-23-2020 INR Coag (PPP) [Relative time] 1.08 {INR} Normal 0.90-1.30 [facility] Comment on above: Result Comment: Ute min K Antagonist (VKA) Therapeutic Range: INR 2 to 3 (Target INR of 2.5) Note: For patients treated with VKA drugs, such as warfarin, the [employer] 2012 Guideline recommends a therapeutic INR range of 2 to 3 (target INR of 2.5). This recommendation includes high-risk patients with antiphospholipid syndrome with previous arterial or venous thromboembolism, current-generation mechanical or bioprosthetic aortic heart valve replacement. Note: Patients with mechanical aortic valve replacement and additional risk factors for thromboembolic events (atrial fibrillation, previous thromboembolism, LV dysfunction, hypercoagulable conditions) or an older generation mechanical AVR (i.e., ball in-Cage) or any mechanical MVR should have a INR therapeutic range of 2.5 to 3.5 target INR of 3). Sergey GH, et al. Chest 2012; 141:7S-47S Papito CRAVEN et al. [facility] 2017; 70: 252-289 Performed By: #### T &S #### [address] [address] PT Coag (PPP) [Time] 11.6 s Normal 9.7-13.0 [facility] Comment on above: Performed By: #### T &S #### [facility] [address] [place], [place] [address] Vancomycin,Randomon 03-23-20 INR Coag (Bld) [Relative time] 19.5 ug/mL Normal 10.0-20.0 [facility] Comment on above: Result Comment: Refe rence ranges and high/low indicator flags are provided as general guidelines only. The treating physician must determine appropriate target levels/dosing based on the specific clinical situation. Performed By: #### T &S #### [facility] [address] HEALTHon 03-22-2020 ALLIED HEALTH HNO ID: [id number] Author: Brenda POOLE Service: Music Therapy Author Type: ? Type: Allied Health Filed: 03/22/2020 1:45 PM Note Text: MUSIC THERAPY NOTE SERVICE DATE: 03/22/2020 SERVICE TIME: 1340 Music therapy offered. Pt awake and alert in bed. Declined music therapy at this time. Open to follow up but stated, thank you, Brenda, but I'm supposed to go home today. Will continue to follow. SIGNATURE: Brenda Ady POOLE PATIENT NAME: Letty Trevino DATE: March 22, 2020 TIME: 1:44 PM PAGER/CONTACT #: P: [phone] [facility] ALLIED [facility] HNO ID: [id number] Author: Aliza ShahRt) Horacio Ma Service: Radiology Author Type: Hip Hop Artist Type: [facility] Filed: 03/21/2020 10:55 PM Note Text: Called for MRI safety screening form. [phone] [facility] CASE MGT INIT ASSESon 2019 CASE MGT INIT ASS HNO ID: [id number] Author: Lilliam ShahRn) LUIS Isaac Service: Care Management Author Type: Registered Nurse Type: Care Mgt Initial Assessment Filed: 03/22/2020 4:40 PM Note Text: CARE MANAGEMENT: ASSESSMENT AND DISCHARGE PLAN SERVICE DATE: March 22, 2020 SERVICE TIME: 1625 PRIMARY CARE PHYSICIAN: Parminder Guajardo DO ADMISSION STATUS: Inpatient Needs Prior to Discharge: To Be Determined;Home Care Order;Accepting Facility;Bed Availability;Facility or Agency Choices;Insurance Authorization;OT/PT Evaluation;Discharge Transportation MEDICAL: [employer] Health Insurance: [employer] Medicare Health Issues Impacting Discharge Plan: Chronic;Newly diagnosed Newly Diagnosed: Delirium Chronic: Bladder cancer Last Discharge Date: 10/18/19 Is this Within the Past 30 days? 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 : 5 - Always If Patient scores > 3 on either question, the following interventions were put into place:: Use of plain language and active listening with Patient and family;Use concrete and specific phrases, avoid medical jargon;Teach back methods employed to ensure comprehension;Forms of communication used with patient and family;Other: See Comment(communication with patient's daughter and ) Baseline Mental Status Prior to this Illness what was the patient's Baseline Mental Status?: Alert AND Oriented Prior to this illness, has anyone described the patient having any of the following behaviors?: Other: See Comment(per patient's daughter Apryl, patient has depression, has no desire to care for herself, refuses showers, dependent for care. 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 DESIGNER thru [employer] arranged thru [employer]) Equipment Prior to Admission: Hospital Bed;Bedside Commode;Cane;Incontinen ce supplies;Rollator Scooter;Tub bench/chair;Walker;Whee lchair;Wound Care supplies;Other: See Comment(Ostomy supplies thru [facility]) SOCIAL: Living Arrangements: Home Lives With: Spouse Financial Resources: RetiredPrimary Contact: Extended Emergency Contact Information Primary Emergency Contact: Anton Trevino Address: [address] [place] [address] Mobile Relation: Spouse Secondary Emergency Contact: Apryl Rivera Mobile Relation: Daughter Supportive Patient Contact:: Yes Contact Resources: Family Family Name/Phone: Apryl Rivera [phone] Social Needs Food insecurity Worry: Never true Inability: Never true Resources Needed: No Social Needs Financial resource strain: Not hard at all Social Needs Transportation needs Medical: No Non-medical: No Caregiver AssessmentCaregiver is ready, willing and able to meet the patient's needs as recommended by the inter-professional team:: Yes Does the patient have an acute stroke diagnosis, or has the patient had a stroke during this admission?: No Patient's transition needs and plan for meeting these needs: Home with HHC VS Hospice, VS SNF Patient's perception of need for this admission: patient confused Medication Adherance Med Adherance Assessement not completed due to: Mental Status Are you interested in bedside delivery of your medications? No Is Patient Psychosocially Complex?: No ASSESSMENT AND PLAN: Medical Needs: Medical Needs: Cancer - active treatment/follow up;Durable Medical Equipment;Fall risk or frequent falls;Wound Care - active or potential Psychosocial Needs: Psychosocial Needs: None FREEDOM OF CHO ICE EXPLAINED: Raymond of Choice Given: No Reason Not Given: Unable to complete with this assessment - revisit POTENTIAL TRANSITION PLANS Home;Home Care;Home OT/PT;Hospice/Terminal Care Support;Passport;To Be Determined;Nursing Home Facility/Intermediate Care Facility Unable to reach patient's via telephone, patient remains confused. Placed TC to patient's daughter Apryl [phone]. Patient lives in a single level home with her Anton, Anton works commission sales associate, Apryl provides care when at work. Per Apryl they have a ramp into the home and a ramp inside the home which goes from the , LR, Kitchen area to the Bath and BR. + DME+PCP, + RX coverage, uses [facility] [employer] - [address] [facility]. Pt. Is active with [facility] for home infusions, Patient receives IV infusions for Potassium as needed. Pt. Has not needed an infusion for the last 2 weeks, the nurse from [facility] does the infusion. No HHC services currently in place. Pt. Has urostomy, supplies obtained thru [facility]. Pt. Has a INTEGRATED CIRCUIT IC LAYOUT DESIGNER [place] from [facility] that comes monthly thru her [employer] insurance. Per Apryl they have been Discussing the possibility of Hospice care. Family would like additional help at home, Per Apryl patient can transfer herself on/off BSC however will not clean herself. Pt. Will wait for family or transfer back to bed with out being cleaned. Pt. Refusing showers . Discussed Passport services. Daughter interested in referral. Disposition pending patient's progress. SIGNATURE: Lilliam Isaac RN PATIENT NAME: Letty Trevino DATE: March 22, 2020 TIME: 4:26 PM PAGER/CONTACT #: [phone] [facility] CONSULTon 03-22-2020 CONSULT HNO ID: [id number] Author: Krystyna Cifuentes (Guero Mckinley) ALEXX Enrique Service: Hematology/Oncology Author Type: Nurse Practitioner Type: Consults Filed: 03/22/2020 3:44 PM Note Text: LETTY TREVINO 69 year old HEMATOLOGY CONSULTATION: Severe macrocytic anemia 24 HOUR COMFORT MEDICATIONS: Subjective HPI: 69-year-old female status post pelvic exenteration in October 2019 for stage IIc T4 N1 M0 bladder carcinoma, status post neoadjuvant therapy but I do not have the regimen or length of therapy prior to her surgery, last chemotherapy August 2019, admitted secondary to sharp abdominal pain around her ileostomy site which also has been increasing in edema, warmth, and tenderness, CT was obtained at [facility] demonstrating an 8.2 x 4.5 cm subcutaneous fluid collection suspicious for inflammatory process laterally to the ileostomy on the right, she is also going [facility] to [facility]. She denies any fever, chills, sweats, cough, sputum production, bleeding especially from her ileostomy site, or episodes of jaundice. Her laboratories show WBC of 5.46, hemoglobin 5.3, hematocrit 16, platelets 178,000, MCV 122.1, RDW 90, BMP remarkable for BUN 14, creatinine 1.26, calculated GFR 41.93 10/13/2019 PATHOLOGY: FINAL DIAGNOSIS: A) URETER, LEFT DISTAL, SEGMENTAL RESECTION - NEGATIVE FOR DYSPLASIA OR MALIGNANCY. B) URETER, RIGHT MARGIN, EXCISION - NEGATIVE FOR DYSPLASIA OR MALIGNANCY. C) LYMPH NODES, BILATERAL PELVIC, EXCISION - APPROXIMATELY 19 LYMPH NODES NEGATIVE FOR METASTATIC CARCINOMA. 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 ?TUMOR EXTENDS INTO LAMINA PROPRIA, MUSCULARIS PROPRIA AND PERIVESICULAR SOFT TISSUES WELL VAGINAL WALL. RESECTION MARGIN FOCALLY POSITIVE?(ANTERIOR WALL). ?LYMPHOVASCULAR INVASION PRESENT. ONE OF TWO LYMPH NODES POSITIVE FOR METASTATIC ADENOCARCINOMA. ?SEE COMMENT. COMMENT: ?Dr. Cb Draper reviewed entry level account representative slides from part D and agrees with the diagnosis. Urinary Bladder Cancer Case Summary Procedure: ???Anterior exenteration. Tumor site: Posterior, left wall, right wall, anterior wall, dome and ?trigone, right ureter. Tumor size: ?Greatest dimension: 6.5 cm. ?Additional dimensions: 6.2 x 2.3 cm. Histologic type: Urothelial carcinoma, invasive with focal ?micropapillary features. Histologic grade: ??High grade. Lymphovascular invasion: Present. Tumor extension: ??Tumor invades lamina propria, muscularis propria, deep ?muscularis propria (outer half), perivesical soft tissue ???macroscopically, and adjacent structures vagina. Margins: ???Involved by invasive carcinoma, soft tissue margin. Regional lymph nodes: ?Number involved: 1. ?Number examined: Approximately 21. Pathologic stage: ??pT4a pN1. OPERATIVE PROCEDURE: Robotic laparoscopic cystectomy w/intracorporeal ileal conduit urinary diversion, robotic laparoscopic surgical w/bilateral pelvic lymph node dissection, robotic anterior pelvic exenteration, ileal conduit Interval History Today she is angry about still being here. She states that everyone is over reacting with her diagnosis and they keep finding things wrong. She is refusing bone marrow biopsy because she cant believe that her chemotherapy may have caused a problem. Psychiatric consult noted. Will defer further procedures until stable. Current Facility-Administered Medications Medication Dose Route Frequency Provider Last Rate Last Dose - vancomycin iv piggyback 1 g in D5W 200 mL (VANCOCIN) 1 g INTRAVENOUS ONCE Sofia Cisse (Pharmacist) 200 mL/hr at 03/22/20 1520 1 g at 03/22/20 1520 - haloperidol lactate 2 mg injection (HALDOL) 2 mg INTRAMUSCULAR q 6 H PRN Toney (ResJames Tomlin MD - mirtazapine 15 mg (REMERON) 15 mg ORAL AT BEDTIME Leonardo Ge - loperamide 2 mg cap(s) (IMODIUM) 2 mg [facility] QID [facility] 2 mg at 03/21/20 0820 - traMADol 50 mg tab(s) (ULTRAM) 50 mg ORAL AT BEDTIME [facility] 50 mg at 03/21/20 2007 - spironolactone 25 mg tab(s) (ALDACTONE) 25 mg ORAL BID 9a/5p [facility] 25 mg at 03/22/20 1520 - sodium chloride 0.9 % (flush) 3-5 mL (BD POSIFLUSH) 3-5 mL INTRAVENOUS q 12 H [facility] 5 mL at 03/22/20 0810 - ondansetron 4 mg tab(s) (ZOFRAN) 4 mg ORAL q 6 H PRN [facility] 4 mg at 03/21/20 0829 Or - ondansetron (PF) 4 mg injection (ZOFRAN) 4 mg INTRAVENOUS q 6 H PRN [facility] - acetaminophen 650 mg tab(s) (TYLENOL) 650 mg ORAL q 6 H PRN [facility] - morphine 1-2 mg injection 1-2 mg INTRAVENOUS q 4 H PRN [facility] 1 mg at 03/22/20 0200 - vancomycin dosing and monitoring per pharmacy OTHER As Directed [facility] - cefTRIAXone 1 g in D5W 100 mL MB+ (ROCEPHIN) 1 g INTRAVENOUS q 24 H [facility] 200 mL/hr at 03/22/20 0808 1 g at 03/22/20 0808 - spironolactone (ALDACTONE) 25 mg tablet, Take 25 mg by mouth twice daily., Disp: , Rfl: - traMADol (ULTRAM) 50 mg tablet, Take 50 mg by mouth daily at bedtime., Disp: , Rfl: - loperamide (IMODIUM) 2 mg cap(s), Take 2 mg by mouth four times daily as needed for Diarrhea., Disp: , Rfl: - Miscellaneous Medical Supply misc, Ileal conduit/urostomy supplies: 1 box of Coloplast no-sting barrier film wipes (Ref #[id number]). 1 box of Coloplast no-sting adhesive remover (Ref #[id number]). 1 bottle of Coloplast stoma powder (Ref #[id number]). 1 tube of Coloplast stoma paste (Ref #[id number]). 1 box of Coloplast small rings (Ref #[id number]). 2 boxes of Coloplast Red flex flat cut-to-fit (Ref #[id number]). 1 box of Coloplast Red Urostomy clear pouches (Ref #[id number]). 1 Box of Coloplast Brava Elastic barrier strips (ref#[id number])., Disp: 1 Each, Rfl: 11 - ALBUTEROL INHALATION, Inhale 1 Inhalation as instructed as needed., Disp: , Rfl: - enoxaparin (LOVENOX) 40 mg/0.4 mL, INJECT THE CONTENTS OF 1 SYRINGE UNDER THE SKIN EVERY 24 HOURS., Disp: 9.2 mL, Rfl: 0 - PARoxetine (PAXIL) 20 mg tablet, Take 1 tablet by mouth once daily., Disp: 60 tablet, Rfl: 1 - furosemide (LASIX) 20 mg tablet, Take 1 tablet by mouth once daily. For 3 days to decrease fluid. Repeat in one month (Patient not taking: Reported on 03/20/2020 ), Disp: 3 tablet, Rfl: 1, Not Taking at Unknown time - zolpidem (AMBIEN) 5 mg tablet, Take 1 tablet by mouth at bedtime as needed for up to 5 days. for insomnia. (Patient not taking: Reported on 03/20/2020), Disp: 5 tablet, Rfl: 0, Not Taking at Unknown time - imipramine HCl (TOFRANIL) 10 mg tablet, Take 1 tablet by mouth daily at bedtime., Disp: 20 tablet, Rfl: 0 - dextroamphetamine-amphe tamine (ADDERALL) 5 mg tablet, Take 5 mg by mouth three times daily., Disp: , Rfl: Social History Tobacco Use - Smoking status: Light Tobacco Smoker - Smokeless tobacco: Never Used - Tobacco comment: 2 CIG/DAY. HX OF 2PPD X 25 YEARS Substance Use Topics - Alcohol use: Not Currently - Drug use: Never FAMILY HISTORY Problem Relation Age of Onset - Cancer Mother breast liver PAST SURGICAL HISTORY Procedure Laterality Date - CYSTOTOMY,EXCIS BLADDER TUMOR 04/23/2019 - HYSTERECTOMY HX 1972 - PAST SURGICAL HISTORY OF 1993 growth in throat removed - PAST SURGICAL HISTORY OF 08/2019 PROCEDURE TO DRAIN KIDNEY - PAST SURGICAL HISTORY OF 06/2019 MEDIPORT INSERTION ROS: All of the following reviewed and negative except as noted below: See history of present illness GENERAL: no fever, chills, sweats, weight loss, fatigue, generalized weakness HEENT: no headache, vision changes, eye discomfort, hearing change, ear discomfort, sinus pain, nasal discharge or congestion, oral lesions, soreness, dental problem NECK: no adenopathy, discomfort, change in ROM CHEST: no shortness of breath, dyspnea on exertion, wheezing, cough, sputum production or chest pain HEART: no chest pain, palpitations, syncope ABDOMEN: no nausea, vomiting, constipation, diarrhea, abdominal pain : no dysuria, urgency, frequency, history of stones, incontinence NEURO: no confusion or alteration in consciousness, slurred speech, seizure, focal weakness EXTREMITIES: no new pain, edema, change in ROM HEME: no new adenopathy, bruises, petechiae PSYCH: Very anxious and angry, states she wants to go home PHYSICAL EXAMINATION: see below for new or abnormal findings BP (!) 92/47 Pulse 85 Temp 36.6 ?C (97.9 ?F) (Oral) Resp 18 Ht 149.9 cm (4' 11) Wt 79.8 kg (175 lb 14.8 oz) SpO2 97% BMI 35.53 kg/m? BMI 35.53 kg/(m2) *NOTE: I washed my hands prior to examination GENERAL: well nourished and developed; alert and oriented x 3; ABNORMAL/NEW FINDINGS: NONE RADIOLOGY/DIAGNOSTICS: LABORATORY: CBC: Recent Labs 03/22/20 0210 WBC 8.38 RBC 2.51* HB 8.8* HCT 27.2* PLT 193 MCV 108.4* MCH 35.1* MPV 9.6 RDW 23.9* CMP: Recent Labs 03/22/20 0210 NA 138 K 4.5 CHLOR 103 CO2 27 BUN 14 CREAT 1.59* GLUC 105* TPROT 5.6* CA 8.4* MG 1.6* TBILI 0.4 ALKPHOS 88 ALT <5* AST 14 ANION 8* Folate low b12 low normal Retic: Slightly elevated, but not sufficiently elevated Haptoglobin normal TSH normal ferritin 580 Iron normal TIBC/%sat not able to calculate ASSESSMENT ACTIVE PROBLEM LIST Bladder Cancer (Hcc) Obesity, Class II, Bmi 35-39.9 Abdominal Wall Abscess PLAN: 1. Severe macrocytic anemia -see above labs .-Will add folic acid and check a methylmalonic acid to labs -recommend BMbx for possible MDS, however given mental state will defer for now -Component may be secondary to anemia of chronic inflammation -Please note that she has had multiple transfusions since her surgery in October 2019. 2. Abdominal wall abscess -Defer to primary service 3. 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 -Status post neoadjuvant chemotherapy, no adjuvant chemotherapy, and no XRT. -Definitely at increased risk for recurrence. 4. New onset delerium: Will defer further testing. Krystyna Enrique, FIELD MARKETING COORDINATOR.COMPLIANCE ENGINEER [facility] CONSULT HNO ID: [id number] Author: Toney (Tasha) MD N[place] Service: Psychiatry Author Type: Resident Type: Consults Filed: 03/22/2020 11:27 AM Note Text: Attestation signed by Leonardo Ge at 03/22/2020 1:59 PM (Updated) Patient seen and examined. Agree with the assessment and plan of the resident except where noted below. This is a 69 female with no past psychiatric history other than recent treatment with Paxil for depressed mood. No known hx of dementia per patient/records. Patient became suddenly very irritable and demanding discharge yesterday afternoon. She spoke with Dr. Maciel, and from her documentation it is apparent that Dr. Maciel provided extensive education about her current condition, treatment options and risks. At that time, the patient was not able to demonstrate meaningful understanding of these facts and was noted to lack capacity. On our evaluation today, she is disoriented to time, very irritable, and frequently makes vague threats about what will happen if she is not discharged. She again demonstrates poor understanding of her clinical condition - she knows there is a lump in her abdomen and she may have a DVT. She recalls nothing of the planned workup and potential interventions and is unable to describe the potential risks of leaving without treatment. When informed of potential risks again, she states if I , I , but denies plan or intent to harm herself. She still voices a desire for treatment and improvement of symptoms but states that this can safely be done on an outpatient basis. She states multiple times that all my doctors told me I'm leaving today, which appears to be a confabulation. Throughout the interview, she displays alterations of attention and consciousness consistent with acute delirium. There is no documented history of dementia but her CT brain shows atrophy and she admits to being dependent on her for ADLs/IADLs prior to hospitalization. She appears very dissatisfied with her quality of life following her treatment for cancer and states that her appetite, sleep, energy, and mood have all been poor, though she is very insistent that she does not need any psychiatric help. A: - Acute delirium, secondary to unknown etiology - I agree with Dr. Maciel's assessment that the patient currently lacks capacity to leave against medical advice - r/o Neurocognitive Disorder - Unspecified Depression - potentially adjustment disorder P: - recommend location appropriate decision-making surrogate to discuss plan and goals of care - decision-making capacity can fluctuate over time and vary dependent on the specific question at hand - there is no global assessment to determine overall capacity for all decisions - see Discussion below for guidelines on evaluating capacity - agree with planned MRI, though patient may become agitated or attempt to refuse - if the MRI is urgent, she may require sedation for the procedure - should be discussed with surrogate - discontinue Paxil - has potential for anticholinergic side effects and a poor choice if patient is non-compliant - start trial of mirtazpaine for mood/sleep/appetite - PRN haldol for agitation - avoid benzodiazepines and anticholinergic medications where possible - will follow as needed Leonardo Ge MD [phone] Mental Capacity Note I have evaluated this patient and based on my examination determined that Patient Letty Trevino has a primary diagnosis of Delirium. At present, patient lacks sufficient decision making ability to make an informed decision to leave the hospital. Therefore, Patient Letty Trevino should not be allowed to leave the hospital against medical advice. The patient will be stabilized medically until a clinical point is reached where the patient can then be re-evaluated for further need of inpatient care or discharge. An attempt will be made to identify an appropriate surrogate decision maker to be an active participant in this patients care The [facility] should follow the [facility] patient management guidance referenced below (can be pasted into browser): Against Medical Advice ( AMA ) Policy https://ccf.ContextPlane. com/docview/?ypohr=2096 Against Medical Advice ( AMA ) Attachment A- Evaluation of Capacity [email or web address] Against Medical Advice ( AMA ) Attachment B- Release of Responsibility [email or web address]=[email or web address] Patients Without Surrogate Standard Operating Procedure [email or web address] Leonardo Ge MD DISCUSSION: Decisional capacity is the ability to make an informed, rational decision. Determination of capacity is limited to specific questions, and may vary over time. A global assessment of the ability to make decisions is termed ?competence? and can only be rendered by a nozzle tender via formal legal proceedings. That is, competence is a legal concept, while capacity is a medical determination rendered by a physician. Any physician can assess a patient's capacity. In order to be deemed to retain decisional capacity, the patient must demonstrate all four of the following criteria: 1. Ability to render a choice/decision 2. Factual understanding of the issues 3. Appreciation of likely consequences 4. Rational manipulation of information (Ref: Eric Allen, Ismael PS. Assessing Competence to Consent to Treatment: A guide for physicians and other health professionals. [employer], 1998) Some questions to help you assess your patient?s capacity are: Factual understanding of issues * What is wrong with you (or what illness do you have)? * What are the treatment or tests recommended for you? * What are the treatment supposed to do for you? * What might happen with the treatment that you do not want to happen? * What else could be done for your illness/problem (pros/cons)? * You mentioned that your doctor told you about risks with treatment - how likely do you think it is that the risks might occur? * Why is your doctor giving you all this information? Appreciation of consequences * Explain what you believe is wrong with your health. * Do you believe you need treatment? What is treatment likely to do for you? * What do you believe will happen if you are not treated? * Why do you think your doctor has recommended specific treatment for you? Rational manipulation of information * Tell me how you reached the decision to accept or reject the recommended treatment? * What were the things that were important in reaching your decision? * How did you balance the pluses and minuses? Other considerations: * Capacity evaluations are best accomplished by the primary team, who are more familiar with the risks and benefits, what they are recommending, and why. * The primary team must have a discussion with the patient regarding the consequences of making any decision (e.g., accepting recommended treatment, choosing an alternative, or refusing treatment altogether). A decision regarding capacity cannot be rendered if she has not been given the appropriate information. * she must be able to retain the information given long enough to make an informed decision. If information can only be retained for short periods of time, it should not automatically be assumed that she lacks capacity. Written information can be used to record information which may help her to retain it. * she must be able to demonstrate the ability to weigh the risks and benefits of making any particular choice. The team does not have to agree with the decision, but it must be logical based on her values. * Every effort must be made to help an incapacitated person regain capacity. * The risk:benefit ratio of the proposed treatment is important. Low risk/high reward treatments require less intense scrutiny when a patient agrees to the treatment, but a bit more when a patient refuses. Conversely, high risk/low reward treatments require less scrutiny when a patient rejects them. (Ref: Demi M, Lilia ME, Neema KIRKLAND, Aureliano GOODRICH. Is your patient making the ?wrong? treatment choice? Current Psychiatry. 2006; 5:3, 13-20.) PSYCHIATRY INITIAL CONSULTATION NOTE DAY TIME COVERAGE: Between 8AM to 5PM, page Leonardo Ge MD NIGHT AND WEEKEND COVERAGE: After hours (5PM to 8AM) and weekends, see consolidation accountant directory SERVICE DATE: March 22, 2020 SERVICE TIME: 10:30 am Consulting Service: Psychiatry, requested by Dr. Shonna Alcala MD's team REASON FOR CONSULTATION: capacity ASSESSMENT/FORMULATION Ms. Nicole Trevino is a 69 year old female with history of narcolepsy, depression admitted to hospital for abdominal wall swelling and DVT. Patient has been agitated and aggressive with staff regarding wanting to be discharged. She does not display insight into her condition and has a poor understanding of her situation. This is likely secondary to an underlying dementia vs depression vs delirium. Patient does not currently have capacity to make informed decisions. DIAGNOSIS: 1. Depressive Disorder unspecified 2. R/o Major neurocognitive disorder 3. R/o Delirium 4. DVT 5. Abdominal mass? RECOMMENDATIONS -Patient does not have capacity to make informed decisions -We will start prn haldol for agitation -Decisions should be made in conjunction with surrogate decision makers Subjective IDENTIFYING INFO: Ms. Nicole Trevino is a 69 year old female from [place], [place]. History of Present Illness: She was admitted to the hospital for abdominal wall swelling and a RLE DVT. She has been resistant to treatment and wanting to be discharged however medical team believes she does not have capacity so we were consulted for a second opinion. Patient notes that she has been feeling depressed due to her poor quality of life for the past few months. She has been having a lot of nausea, pain, diarrhea on a daily paddy which has been stressful for her. She is irritable during the interview and relates that she wants to be discharged today. She states that her other doctors have told her that she is being discharged today. She has little insight or understanding of her situation. Her medical concerns have been explained to her several times but she has not been able to retain that information. She is able to relate that she has a DVT but thinks that her doctors and her family are ok with her being discharged today. She is slightly disoriented in her interaction with me. She is unsure of the month or date today but is oriented to place and person. She is unaware of her treatment plan and is having difficulties retaining that information. She also relates a decline in her cognitive capacities in other areas of life. She is no longer able to drive, her helps her with bathing and dressing herself, she is unable to balance her checkbook at home, and she relates some difficulties with memory over the last few years. She also notes some difficulties with sleep, and was agitated with staff yesterday possibly bordering on becoming violent. [place] SUICIDE SEVERITY RATING SCALE 1.) Wish to be : Have you wished you were or wished you could go to sleep and not wake up? NO 2.) Suicidal Thoughts: Have you actually had any thoughts of killing yourself? NO 6.) Suicide Behavior Question: Have you ever done anything, started to do anything, or prepared to do anything to end your life?NO STRESSORS: acute medical concerns, poor quality of life COLLATERAL INFORMATION: Spoke with nurse who relates patient has been agitated and aggressive with staff demanding to leave. Nurse notes patient has been disoriented and confused at times. She has difficulty retaining the information presented to her. PSYCHIATRIC REVIEW OF SYMPTOMS: Patient endorses some recent depression as well as difficulty sleeping, some hopelessness, but is resistant to participate in remainder of ROS, The remainder was reviewed and unremarkable. MEDICAL REVIEW OF SYSTEMS: Pertinent Positives: denies The remainder was reviewed and unremarkable. PSYCHIATRIC HISTORY: Diagnoses: None Current Psychiatrist: None Current Therapist: None Psychiatric Hospitalization(s): None History of Suicide Attempts: None Previous Psychiatric Medication Trials: adderall Current Outpatient Psychiatric Medications: Paxil, ambien, SUBSTANCE ABUSE HISTORY: Alcohol: No history of use or dependence Marijuana: No history of use or dependence Cocaine: No history of use or dependence Opioids: No history of use or dependence Amphetamines: No history of use or dependence Tobacco: none currently Other Substance Use: No history of use or dependence SOCIAL HISTORY: Relationships: Children: Yes, daughter helps take care of her Living Situation: Lives with , daughter comes around during the day to help with her care Education: High school Employment: Retired Current Supports: spouse/partner, adult children Legal History: Denied FAMILY PSYCHIATRIC HISTORY: None FAMILY HISTORY Problem Relation Age of Onset - Cancer Mother breast liver 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 daughter - Uterine cancer (HCC) 1971 PAST SURGICAL HISTORY Procedure Laterality Date - CYSTOTOMY,EXCIS BLADDER TUMOR 04/23/2019 - HYSTERECTOMY HX 1971 - PAST SURGICAL HISTORY OF 1993 growth in throat removed - PAST SURGICAL HISTORY OF 08/2019 PROCEDURE TO DRAIN KIDNEY - PAST SURGICAL HISTORY OF 06/2019 MEDIPORT INSERTION Current Facility-Administered Medications Medication Dose Route Frequency - vancomycin iv piggyback 1 g in D5W 200 mL (VANCOCIN) 1 g INTRAVENOUS ONCE - loperamide 2 mg cap(s) (IMODIUM) 2 mg ORAL QID PRN - traMADol 50 mg tab(s) (ULTRAM) 50 mg ORAL AT BEDTIME - spironolactone 25 mg tab(s) (ALDACTONE) 25 mg ORAL BID 9a/5p - PARoxetine 20 mg tab(s) (PAXIL) 20 mg ORAL DAILY - sodium chloride 0.9 % (flush) 3-5 mL (BD POSIFLUSH) 3-5 mL INTRAVENOUS q 12 H - ondansetron 4 mg tab(s) (ZOFRAN) 4 mg ORAL q 6 H PRN Or - ondansetron (PF) 4 mg injection (ZOFRAN) 4 mg INTRAVENOUS q 6 H PRN - acetaminophen 650 mg tab(s) (TYLENOL) 650 mg ORAL q 6 H PRN - morphine 1-2 mg injection 1-2 mg INTRAVENOUS q 4 H PRN - vancomycin dosing and monitoring per pharmacy OTHER As Directed - cefTRIAXone 1 g in D5W 100 mL MB+ (ROCEPHIN) 1 g INTRAVENOUS q 24 H - spironolactone (ALDACTONE) 25 mg tablet, Take 25 mg by mouth twice daily., Disp: , Rfl: - traMADol (ULTRAM) 50 mg tablet, Take 50 mg by mouth daily at bedtime., Disp: , Rfl: - loperamide (IMODIUM) 2 mg cap(s), Take 2 mg by mouth four times daily as needed for Diarrhea., Disp: , Rfl: - Miscellaneous Medical Supply misc, Ileal conduit/urostomy supplies: 1 box of Coloplast no-sting barrier film wipes (Ref #[id number]). 1 box of Coloplast no-sting adhesive remover (Ref #[id number]). 1 bottle of Coloplast stoma powder (Ref #[id number]). 1 tube of Coloplast stoma paste (Ref #[id number]). 1 box of Coloplast small rings (Ref #[id number]). 2 boxes of Coloplast Red flex flat cut-to-fit (Ref #[id number]). 1 box of Coloplast Red Urostomy clear pouches (Ref #[id number]). 1 Box of Coloplast Brava Elastic barrier strips (ref#[id number])., Disp: 1 Each, Rfl: 11 - ALBUTEROL INHALATION, Inhale 1 Inhalation as instructed as needed., Disp: , Rfl: - enoxaparin (LOVENOX) 40 mg/0.4 mL, INJECT THE CONTENTS OF 1 SYRINGE UNDER THE SKIN EVERY 24 HOURS., Disp: 9.2 mL, Rfl: 0 - PARoxetine (PAXIL) 20 mg tablet, Take 1 tablet by mouth once daily., Disp: 60 tablet, Rfl: 1 - furosemide (LASIX) 20 mg tablet, Take 1 tablet by mouth once daily. For 3 days to decrease fluid. Repeat in one month (Patient not taking: Reported on 03/20/2020 ), Disp: 3 tablet, Rfl: 1, Not Taking at Unknown time - zolpidem (AMBIEN) 5 mg tablet, Take 1 tablet by mouth at bedtime as needed for up to 5 days. for insomnia. (Patient not taking: Reported on 03/20/2020), Disp: 5 tablet, Rfl: 0, Not Taking at Unknown time - imipramine HCl (TOFRANIL) 10 mg tablet, Take 1 tablet by mouth daily at bedtime., Disp: 20 tablet, Rfl: 0 - dextroamphetamine-amphe tamine (ADDERALL) 5 mg tablet, Take 5 mg by mouth three times daily., Disp: , Rfl: ALLERGIES Allergen Reactions - Bactrim [Sulfametho* GI Upset - Ciprofloxacin Vomiting - Penicillin G Rash Objective VITAL SIGNS: 03/21/20 1037 03/21/20 1342 03/21/20 2218 03/22/20 0627 BP: 106/50 (!) 104/46 (!) 92/47 Pulse: 81 95 85 Resp: Temp: 36.6 ?C (97.9 ?F) 36.4 ?C (97.5 ?F) 36.6 ?C (97.9 ?F) TempSrc: Temporal Temporal Oral SpO2: 100% 98% 97% Weight: 79.8 kg (175 lb 14.8 oz) Height: PHYSICAL EXAMINATION: Muscle Tone/Strength: No rigidity, tremor, hyperreflexia, or clonus noted. Moved extremities against gravity. MENTAL STATUS EXAMINATION: Appearance: In hospital gown, lying in bed, partially exposed Behavior: Irritable at times Psychomotor: Increased psychomotor activity Cognition: Level of Consciousness: some fluctuations in wakefulness Orientation: Person, place, not time Memory: Impaired Attention/Concentration : intact Fund of Knowledge: Able to demonstrate an awareness of current events. Mood: Irritable, depressed Affect: Mood-congruent, restricted Speech/Language: Appropriate tone, prosody, bryce, phonetics, and syntax Thought Form: concrete Thought Content: Perseverative on discharge Perceptual disturbances: No hallucinations. Safety: Suicidal Ideations: No suicidal ideation, intent or plan. Homicidal Ideations: No homicidal ideation, intent or plan. Insight: poor Judgment: limited Lab Results Component Value Date/Time WBC 8.38 03/22/2020 02:10 AM RBC 2.51 (L) 03/22/2020 02:10 AM HGB 8.5 (L) 10/13/2019 09:46 AM HCT 27.2 (L) 03/22/2020 02:10 AM MCV 108.4 (H) 03/22/2020 02:10 AM MCH 35.1 (H) 03/22/2020 02:10 AM MCHC 32.4 03/22/2020 02:10 AM PLT 193 03/22/2020 02:10 AM GLUC 105 (H) 03/22/2020 02:10 AM NA 138 03/22/2020 02:10 AM K 4.5 03/22/2020 02:10 AM CHLOR 103 03/22/2020 02:10 AM BUN 14 03/22/2020 02:10 AM CREAT 1.59 (H) 03/22/2020 02:10 AM MG 1.6 (L) 03/22/2020 02:10 AM CO2 27 03/22/2020 02:10 AM TPROT 5.6 (L) 03/22/2020 02:10 AM ALB 1.9 (L) 03/22/2020 02:10 AM CA 8.4 (L) 03/22/2020 02:10 AM AST 14 03/22/2020 02:10 AM ALT <5 (L) 03/22/2020 02:10 AM ALKPHOS 88 03/22/2020 02:10 AM TBILI 0.4 03/22/2020 02:10 AM Urinalysis (past 7 days) No results for input(s): UPH, SPGR, UGLUC, UBILI, UKET, UHB, UPROT, UROBILINOGEN, NITRITES, UWBC in the last 168 hours. Urine Toxicology AND Blood Alcohol No results found for: UQAMPH, UBARB, UBARB2, UBENZ, UQBUPRE, UQNORBUP, UCOC2, UTHC, UQCANN, UOPI, UQOXYC, UPCP, UETOH, ALCO Imaging: CT Brain Report CT BRAIN WO IVCON Exam End: 03/21/2020 4:24 PM (Final result) Narrative: * * *Final Report* * * DATE OF EXAM: Mar 21 2020 4:24PM [facility] [id number] - CT BRAIN WO IVCON / PROCEDURE REASON: Encephalopathy * * * * Physician Interpretation * * * * EXAMINATION: CT BRAIN WO IVCON CLINICAL HISTORY: Encephalopathy with history of bladder cancer. TECHNIQUE: Serial axial images without IV contrast were obtained from the vertex to the foramen magnum. MQ: [id number] CT Dose-Length Product (DLP): 1169 mGy*cm CT Dose Reduction Employed: Iterative recon COMPARISON: Outside MR brain 06/25/2019 RESULT: Post-operative change: None. Acute change: No evidence of an acute infarct or other acute parenchymal process. Hemorrhage: No evidence of acute intracranial hemorrhage. Mass Lesion / Mass Effect: There is no evidence of an intracranial mass or extraaxial fluid collection. No significant mass effect. Chronic change: There is parenchymal hypodensity in the left medial parietal region extending to the left lateral ventricle atrium. This was not present on 06/25/2019 Parenchyma: There is mild to moderate generalized volume loss. The brain parenchyma is otherwise within normal limits for age. Ventricles: Ventricular enlargement concordant with the degree of parenchymal volume loss. Paranasal sinuses and skull base: The visualized paranasal sinuses are grossly clear. The skull base and imaged soft tissues are unremarkable. Propagator (topogram) images: Unremarkable. Impression: IMPRESSION: No acute intracranial findings. Left medial parietal parenchymal hypodensity likely represents subacute or chronic infarct. Projector Booth Operator: PSCB Transcribe Date/Time: Mar 21 2020 4:26P Dictated by : HECTOR PEREZ MD This examination was interpreted and the report reviewed and electronically signed by: HECTOR PEREZ MD on Mar 21 2020 4:32PM EST Complete Results EK qtc Assessment/Plan ASSESSMENT/FORMULATION Ms. Nicole Trevino is a 69 year old female with history of narcolepsy, depression admitted to hospital for abdominal wall swelling and DVT. Patient has been agitated and aggressive with staff regarding wanting to be discharged. She does not display insight into her condition and has a poor understanding of her situation. This is likely secondary to an underlying dementia vs depression vs delirium. Patient does not currently have capacity to make informed decisions. DIAGNOSIS: 1. Depressive Disorder unspecified 2. R/o Major neurocognitive disorder 3. R/o Delirium 4. DVT 5. Abdominal mass? RECOMMENDATIONS -Patient does not have capacity to make informed decisions -We will start prn haldol for agitation -Decisions should be made in conjunction with surrogate decision makers SIGNATURE: Toney Tomlin MD PATIENT NAME: Letty Trevino DATE: March 22, 2020 TIME: 11:05 AM PAGER/CONTACT #: [phone] [facility] CONSULT HNO ID: [id number] Author: Gilbert Warner Service: Infectious Disease Author Type: Physician Type: Consults Filed: 03/22/2020 11:16 PM Note Text: INITIAL CONSULT INFECTIOUS DISEASE SERVICE DATE: 03/22/2020 SERVICE TIME: 9:04 AM We were asked to evaluate Ms. Letty Trevino, a 69 year old yo female by Dr. Campo for Dr Warner. Our findings and recommendations will be communicated through the shared medical record. Subjective HPI: 69yo F with a pertinent history of T4N1 bladder cancer s/p cystectomy with ileostomy placement in October 2019, and completed chemotherapy and radiation in December 2019. Patient sees Dr. Yin who did the surgery. Patient for the last weeks noticed increased swelling, warmth, and tenderness at her ileostomy site which brought her to [facility] from where she was transferred here. Patient has sharp 8/10 pain in the region. ON Ct abdomen/pelvis done at [facility] (check records on chart) she was found to have a 8.2 x 4.5cm subcutanous fluid collection suspicion for an inflammatory process at the lateral aspect of the ileostomy side on thr right. No fever/chills, no cough, no chest pain, no dyspnea no bright red bloody stools nor melena. ? In the ED, Labs showed anemia with a Hgb of 5.3, was transfused with 2 units of pRBCs and SOO to 1.26. ? CT scan showed 8cm x 4.5cm abdominal subcutaneous fluid collection. Images recently uploaded to system. IV Vancomycin and ceftriaxone was given. ID was consulted to review the abdominal abscess. Exposure History Not significant CURRENT ANTIBIOTICS: IV ceftriaxone 1g q24 Current other medications reviewed. Current Facility-Administered Medications Medication Dose Route Frequency - loperamide 2 mg cap(s) (IMODIUM) 2 mg ORAL QID PRN - traMADol 50 mg tab(s) (ULTRAM) 50 mg ORAL AT BEDTIME - spironolactone 25 mg tab(s) (ALDACTONE) 25 mg ORAL BID 9a/5p - PARoxetine 20 mg tab(s) (PAXIL) 20 mg ORAL DAILY - sodium chloride 0.9 % (flush) 3-5 mL (BD POSIFLUSH) 3-5 mL INTRAVENOUS q 12 H - ondansetron 4 mg tab(s) (ZOFRAN) 4 mg ORAL q 6 H PRN Or - ondansetron (PF) 4 mg injection (ZOFRAN) 4 mg INTRAVENOUS q 6 H PRN - acetaminophen 650 mg tab(s) (TYLENOL) 650 mg ORAL q 6 H PRN - morphine 1-2 mg injection 1-2 mg INTRAVENOUS q 4 H PRN - vancomycin dosing and monitoring per pharmacy OTHER As Directed - cefTRIAXone 1 g in D5W 100 mL MB+ (ROCEPHIN) 1 g INTRAVENOUS q 24 H There is no immunization history on file for this patient. 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 HX OF 2PPD X 25 YEARS Substance Use Topics - Alcohol use: Not Currently - Drug use: Never FAMILY HISTORY Problem Relation Age of Onset - Cancer [facility] ALLERGIES Allergen Reactions - Bactrim [Sulfametho* GI Upset - Ciprofloxacin Vomiting - Penicillin G Rash REVIEW OF SYSTEMS: General: no fatigue, no weakness, no fever/chills HEENT: no cough, no nasal congestion, no sore throat Respiratory: no cough, no shortness of breath, no wheezing, no hemoptysis, Cardio: no chest pain, no exertional dyspnea, no leg swelling, no palpitations GI: no nausea, no vomiting, no diarrhea, abdominal pain : no dysuria, no frequency, no incontinence Musculoskeletal: no joint pain, no joint swelling, no muscle pain, no back pain Skin: no rashes, no ulcers, no itching Endocrine: no cold nor heat intolerance, no polyuria, no goiter Neuro: no headaches, no syncope, no paralysis, no seizures, no tremors ? Objective PHYSICAL EXAM: BP (!) 92/47 Pulse 85 Temp 36.6 ?C (97.9 ?F) (Oral) Resp 18 Ht 149.9 cm (4' 11) Wt 79.8 kg (175 lb 14.8 oz) SpO2 97% BMI 35.53 kg/m? General: Alert, in no acute distress Head: Normocephalic, atraumatic Neck: supple, trachea is midline, no obvious masses Respiratory: normal effort, no audible wheezes Cardiovascular: regular pulse and no cyanosis Musculoskeletal: moving all extremities, normal tone Skin: warm and dry Psych: normal mood and affect, oriented Abdomen: Full, Soft, moves with respiration, non distended, Ileostomy site on the right lower quadrant About 8.5 x 5 cm mass to the right of the ileostomy bag, fluctuant, mildly erythematous Positive differential warmth Mildly tender : ileal conduit draining yellow urine with sediment, mucous around the stoma ? ? LABS: Labs: CBC: Recent Labs 03/22/20 0210 03/21/20 1830 03/21/20 0910 03/21/20 0140 WBC 8.38 -- -- 5.46 HB 8.8* 10.4* 8.8* 5.3* HCT 27.2* 29.9* 26.1* 16.0* PLT 193 -- -- 178* MCV 108.4* -- -- 122.1* COAG: No results for input(s): APTT, INR in the last 168 hours. BMP: Recent Labs 03/22/20 0210 03/21/20 0140 GLUC 105* 79 NA 138 135* K 4.5 4.4 CHLOR 103 103 CO2 27 26 ANION 8* 6* BUN 14 14 CREAT 1.59* 1.26* CHEM: Recent Labs 03/22/20 0210 03/21/20 0140 ALB 1.9* -- TPROT 5.6* -- CA 8.4* 8.1* MG 1.6* -- HEPATIC: Recent Labs 03/22/20 0210 ALKPHOS 88 ALT <5* AST 14 TBILI 0.4 URINALYSIS:No results for input(s): PH, SPGR, UGLUC, UBILI, UKET, UHB, UPROT, UROBIL, UWBC, SSA in the last 168 hours. Invalid input(s): NITR CARDIAC: No results for input(s): CKTEST, CKMB, CKMBP in the last 168 hours.TROPONIN@:8,No results found for: BNP:8)@ Intake/Output Summary (Last 24 hours) at 03/22/2020 0910 Last data filed at 03/21/2020 1700 Gross per 24 hour Intake 240 ml Output 5600 ml Net -5360 ml Creatinine clearance cannot be calculated (Unknown ideal weight.) MICROBIOLOGY: None IMAGING: CT Brain 03/21/2020 - No acute intracranial findings. - Left medial parietal parenchymal hypodensity likely represents subacute or chronic infarct. US DVT LE 03/21/2020 -Positive study for acute proximal DVT in the distal right external iliac and common femoral veins. The thrombus is nonocclusive. Nondiagnostic study for calf DVT in the left and right lower extremities. Nondiagnostic study for acute superficial thrombophlebitis in the imaged segments of the left and right lower extremities. CT ABD 03/21/2020 - Done outside [facility] DATA: Diagnostic Tests Reviewed for Today's Visit: Most recent labs and imaging results. Impression/Recommendati ons ? This is a 69 year old female s/p radical cystectomy and ileal conduit for pT4a pN1 bladder cancer being evaluated for ileostomy site mass vs abscess. PLAN - Give Oral Cefdinir and Flagyl for 2 weeks - We would continue to follow up the patient - For a possible re-tap of the fluid in the mass and possible culture - We would continue to follow up the patient. Resolved Problems: * No resolved hospital problems. * Thank you very much for inviting us to participate in the care of this patient. SIGNATURE: Dameon Campo MD PATIENT NAME: Letty Trevino DATE: March 22, 2020 TIME: 9:04 AM PAGER/CONTACT #: [phone] Seen and examined independently. Agree fully w above notes as documented by the resident. Gilbert Warner MD, AVA 03/22/2020 11:14 PM Normal [facility] CONSULT PROGon 03-22-2020 CONSULT PROG HNO ID: [id number] Author: Sofia Cises (Pharmacist) Service: Pharmacy Author Type: Pharmacist Type: Consult Progress Note Filed: 03/22/2020 9:38 AM Note Text: PHARMACY VANCOMYCIN DOSING NOTE Patient Name: Letty Trevino Admission Date: 03/20/2020 Date of Consult: 03/22/2020 Time of Consult: 9:29 AM Indication: Skin/Soft tissue infection Goal Range: 10-20 mcg/mL RECOMMENDATIONS/PLAN: Pharmacy consulted for vancomycin dosing for Letty Trevino, a 69 year old, female who is being treated with vancomycin for abdominal wall mass vs. Abscess 1. Patient is currently ordered Vancomycin dosed by level. Today is day 2 of therapy. Patient received a dose of 2g x1 on 03/21 @ 0821 (this dose was based on an incorrect weight) 2. The most recent vancomycin level was 16.7 mcg/mL drawn at 0645 on 03/22. This is a 22.5 hour level on the 2nd day of therapy. 3. Vancomycin level is below or within therapeutic goal. Will re dose vancomycin 1 g x 1 dose today, will time this dose this afternoon 4. The next vancomycin level has been ordered for 03/23/20 @ 1300 (Completed) We will follow patient renal function, vancomycin levels and doses with you during the course of therapy. Additional recommendations will appear in follow up notes. If you have any questions[place] [phone]. Age: [age] year old Allergies: ALLERGIES Allergen Reactions - Bactrim [Sulfametho* GI Upset - Ciprofloxacin Vomiting - Penicillin G Rash Last 3 Encounter Wt Readings: Date: Wt: 03/20/2020 79.8 kg (175 lb 14.8 oz) 11/02/2019 89.4 kg (197 lb) 10/07/2019 89.4 kg (197 lb) Last 1 Encounter Ht Readings: Date: Ht: 03/20/2020 149.9 cm (4' 11) CrCl: 30 mL/min- used an estimated IBW of 45kg to calculate adjusted body weight of ~60kg Temp (24hrs), Av.6 ?C (97.8 ?F), Min:36.4 ?C (97.5 ?F), Max:36.6 ?C (97.9 ?F) - Current Temp: 36.6 ?C (97.9 ?F) Labs BUN (mg/dL) Date Value 03/22/2020 14 03/21/2020 14 10/18/2019 14 Creatinine (mg/dL) Date Value 03/22/2020 1.59 (H) 03/21/2020 1.26 (H) 10/18/2019 0.65 WBC (thou/cmm) Date Value 03/22/2020 8.38 03/21/2020 5.46 10/18/2019 12.67 (H) Vancomycin Levels: Vancomycin,Random (ug/mL) Date/Time Value 03/22/2020 0645 16.7 Sofia Cisse, Pharmacist Normal [facility] Comprehensive Metabolic Pane keke 03-22-2020 Albumin [Mass/Vol] 1.9 g/dL Low 3.9-4.9 [facility] Comment on above: Performed By: #### G LMET #### [address] [address] ALP [Catalytic activity/Vol] 88 U/L Normal 34-123 [facility] Comment on above: Performed By: #### G LMET #### [address] [address] ALT [Catalytic activity/Vol] U/L Low 7-38 [facility] Comment on above: Performed By: #### G LMET #### [facility] [address] [place], [place] [address] Anion gap [Moles/Vol] 8 mmol/L Low 9-18 [facility] Comment on above: Performed By: #### G LMET #### [facility] [address] [place], [place] [address] AST [Catalytic activity/Vol] 14 U/L Normal 13-35 [facility] Comment on above: Performed By: #### G LMET #### [facility] [address] [place], [place] [address] Bilirubin [Mass/Vol] 0.4 mg/dL Normal 0.2-1.3 [facility] Comment on above: Performed By: #### G LMET #### [facility] [address] [place], [place] [address] Calcium [Mass/Vol] 8.4 mg/dL Low 8.5-10.2 [facility] Comment on above: Performed By: #### G LMET #### [facility] [address] [place], [place] [address] Chloride [Moles/Vol] 103 mmol/L Normal 97-105 [facility] Comment on above: Performed By: #### G LMET #### [facility] [address] [place], [place] [address] CO2 Blood 27 mmol/L Normal 22-30 [facility] Comment on above: Performed By: #### G LMET #### [facility] [address] [place], [place] [address] Creatinine [Mass/Vol] 1.59 mg/dL High 0.58-0.96 [facility] Comment on above: Performed By: #### G LMET #### [facility] [address] [place], [place] [address] Glucose [Mass/Vol] 105 mg/dL High 74-99 [facility] Comment on above: Result Comment: The [place] [employer] (ADA) provides guidance for cutoff values for fasting glucose and random glucose. The ADA defines fasting as no caloric intake for at least 8 hours.Fasting plasma glucose results between 100 to 125 mg/dL indicate increased risk for diabetes (prediabetes). Fasting plasma glucose results greater than or equal to 126 mg/dL meet the criteria for diagnosis of diabetes. In the absence of unequivocal hyperglycemia, results should be confirmed by repeat testing. In a patient with classic symptoms of hyperglycemia or hyperglycemic crisis, random plasma glucose results greater than or equal to 200 mg/dL meet the criteria for diagnosis of diabetes. Reference: Standards of Medical Care in Diabetes 2016; [place] [employer]. Diabetes Care. 2016;39(Suppl 1). Performed By: #### G LMET #### [facility] [address] [place] [address] Potassium [Moles/Vol] 4.5 mmol/L Normal 3.7-5.1 [facility] Comment on above: Performed By: #### G LMET #### [facility] [address] [place] [address] Protein [Mass/Vol] 5.6 g/dL Low 6.3-8.0 [facility] Comment on above: Performed By: #### G LMET #### [facility] [address] [place] [address] Sodium [Moles/Vol] 138 mmol/L Normal 136-144 [facility] Comment on above: Performed By: #### G LMET #### [facility] [address] [place] [address] Urea nitrogen [Mass/Vol] 14 mg/dL Normal 7-21 [facility] Comment on above: Performed By: #### G LMET #### [place] [address] Hemogram/Diffon 03-22-2020 Abs Immature Grans 0.04 thou/cmm Normal 0.00-0.05 [facility] Comment on above: Performed By: #### T &S #### [place] [address] Abs Neut (ANC) 5.72 thou/cmm Normal 1.56-6.13 [facility] Comment on above: Performed By: #### T &S #### [place] [address] Abs. Baso 0.02 thou/cmm Normal 0.01-0.08 [facility] Comment on above: Performed By: #### T &S #### [place] [address] Abs. [place] 0.46 thou/cmm Normal 0.27-0.70 [facility] Comment on above: Performed By: #### T &S #### [place] [address] Basophils/100 WBC (Bld) 0.2 % Normal A [facility] Comment on above: Performed By: #### T &S #### [facility] [address] [place], [place] [address] Eosinophils (Bld) [#/Vol] 0.01 thou/cmm Normal 0.00-0.31 [facility] Comment on above: Performed By: #### T &S #### [facility] [address] [place], [place] [address] Eosinophils/100 WBC (Bld) 0.1 % Normal [facility] Comment on above: Performed By: #### T &S #### [facility] [address] [place] [address] Erythrocyte distribution width (RBC) [Ratio] 23.9 % High 11.7-14.4 [facility] Comment on above: Performed By: #### T &S #### [place] [address] Hematocrit (Bld) [Volume fraction] 27.2 % Low 34.1-44.9 [facility] Comment on above: Performed By: #### T &S #### [facility] [address] [place], [place] [address] Hemoglobin (Bld) [Mass/Vol] 8.8 g/dL Low 11.2-15.7 [facility] Comment on above: Performed By: #### T &S #### [place] [address] Immature Grans 0.50 % Normal [facility] Comment on above: Performed By: #### T &S #### [facility] [address] [place], [place] [address] Lymphocytes (Bld) [#/Vol] 2.13 thou/cmm Normal 1.18-3.74 [facility] Comment on above: Performed By: #### T &S #### [facility] [address] [place], [place] [address] Lymphocytes/100 WBC (Bld) 25.4 % Normal [facility] Comment on above: Performed By: #### T &S #### [facility] [address] [place] [address] MCH (RBC) [Entitic mass] 35.1 pg High 25.6-32.2 [facility] Comment on above: Performed By: #### T &S #### [facility] [address] [place] [address] MCHC (RBC) [Mass/Vol] 32.4 % Normal 31.6-34.8 [facility] Comment on above: Performed By: #### T &S #### [facility] [address] [place] [address] MCV (RBC) [Entitic vol] 108.4 fL High 79.4-94.8 [facility] Comment on above: Performed By: #### T &S #### [place] [address] Monocytes/100 WBC (Bld) 5.5 % Normal [facility] Comment on above: Performed By: #### T &S #### [place] [address] Platelet mean volume (Bld) [Entitic vol] 9.6 fL Normal 9.4-12.3 [facility] Comment on above: Performed By: #### T &S #### [place] [address] Platelets (Bld) [#/Vol] 193 thou/cmm Normal 182-369 [facility] Comment on above: Performed By: #### T &S #### [facility] [address] [place] [address] RBC (Bld) [#/Vol] 2.51 mil/cmm Low 3.93-5.22 [facility] Comment on above: Performed By: #### T &S #### [facility] [address] [place] [address] RDW SD 89.7 fl High 36.4-46.3 [facility] Comment on above: Performed By: #### T &S #### [place] [address] Seg Neutrophil 68.3 % Normal [facility] Comment on above: Performed By: #### T &S #### [facility] [address] [place], [place] [address] WBC (Bld) [#/Vol] 8.38 thou/cmm Normal 3.98-10.04 [facility] Comment on above: Performed By: #### T &S #### [facility] [address] [place], [place] [address] MRI BRAIN WO IVCONon 020 MRI BRAIN WO IVCON Final Report DATE OF EXAM: Mar 22 2020 9:52PM [facility] 0294 - MRI BRAIN WO IVCON / PROCEDURE REASON: TIA, initial exam Physician Interpretation EXAMINATION: MRI BRAIN WO IVCON CLINICAL HISTORY: The patient presents with confusion. Altered mental status. Rule out stroke. TECHNIQUE: Routine noncontrast MRI protocol including diffusion images. MQ: [id number] COMPARISON: Noncontrast head CT 03/21/2020 MRI brain 06/25/2019 RESULT: Acute Change: No restricted diffusion to suggest acute ischemia/infarct. Hemorrhage: Small area encephalomalacia/gliosi s left occipital lobe associated with mild chronic hemosiderin staining. Mass Lesion/ Mass Effect: No evidence of an intracranial mass or extra-axial fluid collection. No significant mass effect. Chronic Change: Scattered patchy areas of increased T2 and FLAIR signal are present in the supratentorial white matter which is a nonspecific finding but likely represents mild chronic microvascular ischemia. Small area encephalomalacia/gliosi s associated with mild chronic hemosiderin staining Parenchyma: There is mild generalized parenchymal volume loss. The brain parenchyma is otherwise within normal limits of signal intensity and morphology. Ventricles: Normal caliber and morphology. Skull Base: Hypothalamic and pituitary region are grossly normal. Craniocervical junction is normal. No significant marrow replacement process. Vasculature: Major intracranial arterial structures, and dural venous sinuses show typical flow void, suggesting patency by spin echo criteria. Other: Paranasal sinuses are grossly clear. Moderate to large right mastoid effusion. The orbits and extracranial soft tissues are unremarkable. IMPRESSION: No acute process. Negative for acute ischemia/infarct. Mild chronic microvascular ischemic change throughout the supratentorial white matter. Mild generalized atrophy. Small chronic right basal ganglia lacunar infarcts. Small area of presumed post infarct encephalomalacia/gliosi s left occipital lobe associated with mild chronic hemosiderin staining. Projector Booth Operator: LAKEISHA Transcribe Date/Time: Mar 23 2020 6:55A Dictated by : DINO PAINTING MD This examination was interpreted and the report reviewed and electronically signed by: DINO PAINTING MD on Mar 23 2020 7:05AM EST Normal [facility] Magnesium Bloodon 03-22-2020 Magnesium [Mass/Vol] 1.6 mg/dL Low 1.7-2.3 [facility] Comment on above: Performed By: #### G LMET #### [facility] [address] [place] [address] NURSING PROGon 03-22-2020 NURSING PROG HNO ID: [id number] Author: Yasmine (Rn) Rostedt Service: ? Author Type: Registered Nurse Type: Nursing Progress Note Filed: 03/22/2020 7:07 AM Note Text: 0615: Patient stating she is going home this morning and that she called her and that a friend is going to come pick her up. She is very angry that she can not get a hold of her daughter. She states that the MD's already signed all her discharge paperwork last night so she can go. She states she is not ashamed to say that she made a scene last night and will make an even bigger scene today if that's what it takes to get out of here. 0640: Patient demanding to leave now saying that an MD came in 45 minutes ago and said she could leave now. Normal [facility] PROGRESSon 03-22-2020 PROGRESS HNO ID: [id number] Author: Shonna Alcala MD Service: Hospital Medicine Author Type: Physician Type: Progress Notes Filed: 03/22/2020 5:54 PM Note Text: DEPARTMENT OF HOSPITAL MEDICINE PROGRESS NOTE SERVICE DATE: 03/21/2020 SERVICE TIME: 8:36 AM Hospital Medicine/Primary Attending: Shonna Alcala NIGHT AND WEEKEND COVERAGE: BROOKS COVERAGE: From 7am - 7pm, please call sound team color After 7pm, please call cross cover pager #[phone] ? Subjective INTERVAL HPI: Pt seen and examined. Epic reviewed. Pt admitted by my colleague earlier this am for increased swelling and redness at ileostomy site. She was found to be anemic with enlarged hematoma along oblique muscle and to have a mass/abscess lateral to ileostomy site. She was started on antibiotics and ED attempted to aspirate mass. Just finished 2 units rbc. CO pain in the right abdomen at mass site. Notes that she fell approx 3 weeks ago and landed on her side, but cannot recall which one. She has no cp or sob. Legs were very swollen at home, but better now. Sore bereket on the left. No fevers or chills. When discussing plan of care patient informed me that she would not be staying here long. MEDICATIONS: Reviewed Objective PHYSICAL EXAM: BP 105/39 Pulse 73 Temp (Src) 98.1 (Oral) Resp 18 Ht 4' 11 (1.50m) Wt 175 lb 14.8 oz (79.8kg) SpO2 97% BMI 35.51 kg/(m2). O2 Therapy: Room Air Physical Exam Performed GENERAL: Alert, no distress, cooperative HEAD/SINUSES: No significant findings EYES: PERRLA, EOMI OROPHARYNX: Lips, mucosa, and tongue normal. Teeth and gums normal. Oropharynx normal. LUNGS: Lungs clear to auscultation, Good diaphragmatic excursion CARDIAC: Normal S1 and S2; no rubs, murmurs, or gallops ABDOMEN: soft large baseball size mass right lateral to ileostomy ttp with erythema. firm. drainage from ileostomy. EXTREMITIES: 1+ edema of bilat leg L>R with calf pain NEURO: Grossly normal cognition, motor function, and cranial nerves III-XII Lines, Drains, and Airways Line Implanted Vascular Access Device Single Port Right Chest -- days Drain Drain/Tube [place] -- days Reviewed lines and needs to be continued: REASONS: Difficulty in obtaining/maintaining access DATA: Diagnostic tests reviewed for today's visit: Most recent labs and imaging results. Assessment/Plan 1. Abdominal wall mass vs abscess near ileostomy site: on consult. Empiric antibx. Likely will consult IR for drainage 2. Metastatic bladder cancer: lymph node involvement. on consult. Had cystectomy and ileostomy 10/2019. S/P radiation in 12/2019. Per bi notes also undergoing chemo. Oncology consult. 3. Anemia, acute on chronic: due to blood loss and chemo. transfuse and recheck labs. Monitor H/H closely. Hematology oncology consult. consult. 4. R oblique hematoma: noted to be significantly worsening on CT scan. Will need close monitoring. Transfuse. No anticoag or asa. 5. Left leg edema and calf pain: US positive for DVT, HEM/ONC on board 6. SOO: IV fluids. 7. Hepatic steatosis 8. Adrenal lesion possible adenoma Medication and Non-Pharmacologic VTE Prophylaxis/Anticoagula nts 03/21/20 0745 pneumatic compression stockings (pa,tn) 03/21/20129 vte pharmacologic prophylaxis contraindicated (pa,tn) 03/21/20129 vte non-pharmacologic prophylaxis - none indicated (pa,tn) 03/21/20129 activity - mobilize patient (pa,tn) VTE Prophylaxis: Contraindicated due to anemia and worsening hematoma Disposition: To be determined Plan of care discussed with: Provider, RN, Patient SIGNATURE: Mahnaz Maciel DO PATIENT NAME: Letty Trevino DATE: March 21, 2020 TIME: 8:36 AM PAGER/CONTACT #: davion vera Doyle [facility] PROGRESS HNO ID: [id number] Author: Parker Quiroz Service: Vascular Surgery Author Type: Resident Type: Progress Notes Filed: 03/22/2020 7:06 AM Note Text: Attestation signed by Dillon Nix at 03/23/2020 8:43 AM Patient very upset with us when we come in the room demanding to go home. I explained that we really need to ascertain what this fluid collection is to determine the appropriate course of treatment for the patient. I have discussed this with the medical service as well. They plan to order an IR drainage and I strongly recommend to the patient that she remain in the hospital and allow this to occur. She is very angry very upset despite the fact that we have really only recommended treatment based on what appears to be appropriate based on the scans that she has. We will follow Vascular Surgery Progress Note SERVICE DATE: 03/22/2020 Vascular and Thoracic Service Pager: For questions or concerns Mon-Fri 6a-5p please page [phone]. After 5pm and on Weekends and Holidays, please page [phone] if in ICU or [phone] if on RNF. Subjective SUBJECTIVE: NAEON. Pt remains adamant/voices that she wants to be discharged. Denies CP, SOB, F/V, N/C, leg pain, hematuria, melena/hematochezia. Objective OBJECTIVE: Vitals: Temp (24hrs), Av.4 ?C (97.5 ?F), Min:36.1 ?C (97 ?F), Max:36.6 ?C (97.9 ?F) BP (!) 104/46 Pulse 95 Temp 36.4 ?C (97.5 ?F) (Temporal) Resp 20 Ht 149.9 cm (4' 11) Wt 79.8 kg (175 lb 14.8 oz) SpO2 98% BMI 35.53 kg/m? O2 Therapy: Room Air IANDO: Date 03/21/20699 - 03/22/2065803/22/20699 - 03/23/20 0659 Shift 7150-4980 2493-7956 8206-3226 24 Hour Total 4241-8860 1786-4204 8450-5496 24 Hour Total INTAKE PO 240 240 PO 240 240 Blood Products 301 301 PRBC Intake (mL) 300 300 Packed Red Blood Cells Number of Units 1 1 Other Amount Wasted PRBC 0 mL 0 mL Shift Total 541 541 OUTPUT Urine 1999 800 2800 Urostomy 1999 800 2800 Tubes 2000 800 2800 Drain/Tube Output (Drain/Tube [place]) 1999 800 2800 Shift Total 4000 1600 5600 Weight (kg) 79.8 79.8 79.8 79.8 79.8 79.8 79.8 79.8 MEDICATIONS Current Facility-Administered Medications Medication Dose Route Frequency - loperamide 2 mg cap(s) (IMODIUM) 2 mg ORAL QID PRN - traMADol 50 mg tab(s) (ULTRAM) 50 mg ORAL AT BEDTIME - spironolactone 25 mg tab(s) (ALDACTONE) 25 mg ORAL BID 9a/5p - PARoxetine 20 mg tab(s) (PAXIL) 20 mg ORAL DAILY - sodium chloride 0.9 % (flush) 3-5 mL (BD POSIFLUSH) 3-5 mL INTRAVENOUS q 12 H - ondansetron 4 mg tab(s) (ZOFRAN) 4 mg ORAL q 6 H PRN Or - ondansetron (PF) 4 mg injection (ZOFRAN) 4 mg INTRAVENOUS q 6 H PRN - acetaminophen 650 mg tab(s) (TYLENOL) 650 mg ORAL q 6 H PRN - morphine 1-2 mg injection 1-2 mg INTRAVENOUS q 4 H PRN - vancomycin dosing and monitoring per pharmacy OTHER As Directed - cefTRIAXone 1 g in D5W 100 mL MB+ (ROCEPHIN) 1 g INTRAVENOUS q 24 H Labs: Recent Labs 03/22/20 0210 03/21/20 1830 03/21/20 0140 03/21/20 0140 NA 138 -- -- 135* K 4.5 -- -- 4.4 CHLOR 103 -- -- 103 CO2 27 -- -- 26 BUN 14 -- -- 14 CREAT 1.59* -- -- 1.26* GLUC 105* -- -- 79 ANION 8* -- -- 6* CA 8.4* -- -- 8.1* MG 1.6* -- -- -- ALB 1.9* -- -- -- AST 14 -- -- -- ALT <5* -- -- -- ALKPHOS 88 -- -- -- TBILI 0.4 -- -- -- WBC 8.38 -- -- 5.46 HB 8.8* 10.4* < > 5.3* HCT 27.2* 29.9* < > 16.0* PLT 193 -- -- 178* < > = values in this interval not displayed. Exam: GENERAL: No distress, Alert, upset at being hospitalized HEENT: normocephalic, atraumatic LUNGS: Unlabored breathing O2 Therapy: Room Air CARDIAC: Regular rate and rhythm as above ABDOMEN: Soft, non-tender, urostomy present with clear yellow urine ouptut. Firm palpable mass.edema RUQ EXTREMITIES: BYRD, No deformities, No edema PULSES: DP pulses palpable bilaterally, confirmed w/ signals SKIN: warm, dry ASSESSMENT AND PLAN: Active Hospital Problems Diagnosis Date Noted - Abdominal wall abscess 03/21/2020 Assessment: 69 year old female with COPD, uterine cancer s/p hysterectomy, bladder cancer s/p robotic anterior exenteration with ileal conduit and on chemo here with abdominal wall swelling - mass vs abscess vs hematoma vs urinoma vs seroma; anemia, and new diagnosis of R external iliac and common femoral vein DVT Plan: - recommend systemic anticoagulation - will hold off IVC filter placement unless pt develops evidence of intolerance of systemic anticoagulation - heme/onc following, appreciate recs - recommend aspiration of abdominal wall fluid collection for diagnostic and therapeutic purposes SIGNATURE: Parker Quiroz MD PATIENT NAME: Letty Trevino DATE: March 22, 2020 TIME: 6:21 AM Pager: [phone] Vascular and Thoracic Service Pager: For questions or concerns Mon-Fri 6a-5p please page [phone]. After 5pm and on Weekends and Holidays, please page [phone] if in ICU or [phone] if on RNF. Normal [facility] Vancomycin,Randomon 03-22-20 INR Coag (Bld) [Relative time] 16.7 ug/mL Normal 10.0-20.0 [facility] Comment on above: Result Comment: Refe rence ranges and high/low indicator flags are provided as general guidelines only. The treating physician must determine appropriate target levels/dosing based on the specific clinical situation. Performed By: #### T &S #### [address] [address] Basic Metabolic Panelon 03-04 Anion gap [Moles/Vol] 6 mmol/L Low 9-18 [facility] Comment on above: Performed By: #### P 8 #### [address] [address] Calcium [Mass/Vol] 8.1 mg/dL Low 8.5-10.2 [facility] Comment on above: Performed By: #### P 8 #### [address] [address] Chloride [Moles/Vol] 103 mmol/L Normal 97-105 [facility] Comment on above: Performed By: #### P 8 #### [facility] [address] [place], [place] [address] CO2 Blood 26 mmol/L Normal 22-30 [facility] Comment on above: Performed By: #### P 8 #### [facility] [address] [place], [place] [address] Creatinine [Mass/Vol] 1.26 mg/dL High 0.58-0.96 [facility] Comment on above: Performed By: #### P 8 #### [facility] [address] [place], [place] [address] Glucose [Mass/Vol] 79 mg/dL Normal 74-99 [facility] Comment on above: Result Comment: The [place] [employer] (ADA) provides guidance for cutoff values for fasting glucose and random glucose. The ADA defines fasting as no caloric intake for at least 8 hours.Fasting plasma glucose results between 100 to 125 mg/dL indicate increased risk for diabetes (prediabetes). Fasting plasma glucose results greater than or equal to 126 mg/dL meet the criteria for diagnosis of diabetes. In the absence of unequivocal hyperglycemia, results should be confirmed by repeat testing. In a patient with classic symptoms of hyperglycemia or hyperglycemic crisis, random plasma glucose results greater than or equal to 200 mg/dL meet the criteria for diagnosis of diabetes. Reference: Standards of Medical Care in Diabetes 2016; [place] [employer]. Diabetes Care. 2016;39(Suppl 1). Performed By: #### P 8 #### [facility] [address] [place], [place] [address] Potassium [Moles/Vol] 4.4 mmol/L Normal 3.7-5.1 [facility] Comment on above: Performed By: #### P 8 #### [facility] [address] [place], [place] [address] Sodium [Moles/Vol] 135 mmol/L Low 136-144 [facility] Comment on above: Performed By: #### P 8 #### [facility] [address] [place], [place] [address] Urea nitrogen [Mass/Vol] 14 mg/dL Normal 7-21 [facility] Comment on above: Performed By: #### P 8 #### [facility] [address] [place] [address] CONSULTon 03-21-2020 CONSULT HNO ID: [id number] Author: Naomy Turner Service: Vascular Surgery Author Type: Resident Type: Consults Filed: 03/21/2020 3:28 PM Note Text: Attestation signed by Dillon Nix at 03/23/2020 8:46 AM Extensive review of case and CT scan performed. This does not appear to me to be a hematoma of the muscle and it does appear to be a soft tissue fluid collection consistent with seroma or abscess. This does not contraindicate anticoagulation. Patient has been extremely low with her hemoglobin for months and has been requiring transfusion. This is a macrocytic anemia and not consistent necessarily with acute blood loss. Agree with transfusion for this. Hematology on board. I truly feel that the most appropriate course of action is to start the patient on her anticoagulation which she will require and to go ahead and aspirate/place a drain in the area of fluid collection to ascertain its nature and potentially help with its treatment. VASCULAR SURGERY CONSULT NOTE Vascular AND Thoracic Surgery Service Pager: For questions or concerns Mon-Fri 6a-5p please page [phone]. After 5pm and on Weekends and Holidays, please page [phone] if in ICU or [phone] if on RNF. Service date: 03/21/2020 Service time: 3:09 PM Reason for consult: IVC filter placement Nature of consult: routine Subjective HPI Ms. Nicole Trevino is a 69 year old female with PMH of COPD, uterine ca s/p hysterectomy (), T4N1 bladder ca s/p neoadjuvant chemo and robotic anterior exenteration and ileal conduit (Dr Yin, 10/2019), currently on chemo (per chart review) who presented to [facility] from [facility] for evaluation of abdominal wall swelling. She was also found to be anemic to 5.3 and b/l LE duplexes significant for distal R external iliac and common femoral veins. Vascular surgery was consulted for IVC filter placement d/t hesitance to systemically anticoagulate the pt in the setting of her anemia. On my exam, pt is very angry and keeps requesting to be discharged home. She reports her abdominal swelling started about 2 days ago. Endorses chronic chills but no fevers, N,V, hematuria or blood stools. Per RN aspiration of collection at [facility] had been attempted with drainage of reportedly serous fluid. 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 daughter - Uterine cancer (HCC) 1971 PAST SURGICAL HISTORY Procedure Laterality Date - CYSTOTOMY,EXCIS BLADDER TUMOR 04/23/2019 - HYSTERECTOMY HX 1971 - PAST SURGICAL HISTORY OF 1993 growth in throat removed - PAST SURGICAL HISTORY OF 08/2019 PROCEDURE TO DRAIN KIDNEY - PAST SURGICAL HISTORY OF 06/2019 MEDIPORT INSERTION FAMILY HISTORY Problem Relation Age of Onset - Cancer Mother breast liver Allergies As of Date: 03/20/2020 Allergen Noted Reaction BACTRIM [SULFAMETHOXAZOLE-TRIME TH*03/20/2020 GI Upset CIPROFLOXACIN 11/03/2019 Vomiting PENICILLIN G 09/22/2019 Rash Fully Assessed 03/20/2020 Complete ten point review of systems completed and negative aside from noted in HPI. General: no fevers, no weight loss Eyes: no gross vision changes, no gross double vision HEENT: no rhinorrhea, no sore throat CV: no chest pain, no palpitations Pulm: no wheezing, no shortness of breath GI: + abdominal pain, no nausea : no dysuria, no straining Neuro: no paralysis, no paraesthesia Psych: no mood changes, no manic episodes Skin: no jaundice, no severe skin changes Objective PHYSICAL EXAM Physical Exam Performed: Ambulatory status:ambulatory Mental status: confused :BP 106/50 Pulse 81 Temp (Src) 97.9 (Temporal) Resp 16 Ht 4' 11 (1.50m) Wt 175 lb 14.8 oz (79.8kg) SpO2 100% BMI 35.51 kg/(m2). O2 Therapy: Room Air General: Alert, in no distress Eyes: gross vision intact, no scleral icterus ENT: atraumatic, No gross abnormality CV: warm, well perfused Pulm: equal chest rise b/l, unlabored breathing on RA GI: abdomen soft, ileal conduit with clear urine, large erythematous and firm swelling lateral to the stoma : ileal conduit with clear urine Skin: atraumatic, no jaundice Extremities: gross motor intact, swelling and signs of venous stasis in b/l LE, palpable Dps b/l Psych: Very angry and irritable Neuro: orient, follows command DATA Recent labs and imaging reviewed US DVT LOWER BILAT Final Result IMPRESSION: Positive study for acute proximal DVT in the distal right external iliac and common femoral veins. The thrombus is nonocclusive. Nondiagnostic study for calf DVT in the left and right lower extremities. Nondiagnostic study for acute superficial thrombophlebitis in the imaged segments of the left and right lower extremities. A wet reading for notification of Dr. Maciel was submitted to the file room on March 21, 2020 at 1:17 PM. Projector Booth Operator: LAKEISHA Transcribe Date/Time: Mar 21 2020 1:13P Dictated by : NAIN HINSON MD This examination was interpreted and the report reviewed and electronically signed by: NAIN HINSON MD on Mar 21 2020 1:18PM EST Impression/Recommendati ons ASSESSMENT AND PLAN Ms. Nicole Trevino is a 69 year old female with PMH of COPD, uterine ca s/p hysterectomy (1970s), T4N1 bladder ca s/p neoadjuvant chemo and robotic anterior exenteration and ileal conduit (Dr Yin, 10/2019), currently on chemo, who is presenting with abdomina wall swelling, anemia and new diagnosis of RLE DVT Bladder Cancer Macrocytic Anemia Acute DVT - Pt currently AF HDS, denies any CP or SOB, adequate HGB response to blood transfusion - Recommend systemic anticoagulation as pt has no overt signs of acute hemorrhage - Will hold off on IVC filter placement unless pt develops evidence of intolerance of systemic AC - Appreciate Heme recs - Highly recommend aspiration of the abd wall fluid collection for diagnostic and therapeutic purposes: seroma, vs hematoma vs abscess vs urinoma - Urology notes the collection is unlikely to be d/t urine leak, though reportedly clear fluid had been aspirated from the collection - D/w Dr Nix SIGNATURE: Naomy Turner MD PATIENT NAME: Letty Trevino DATE: March 21, 2020 TIME: 3:09 PM PAGER: see below Vascular AND Thoracic Surgery Service Pager: For questions or concerns Fri-Fri 6a-5p please page [phone]. After 5pm and on Weekends and Holidays, please page [phone] if in ICU or [phone] if on RNF. Normal [facility] CONSULT HNO ID: [id number] Author: Aure (Rn) LUIS Flores Service: Wound/Ostomy Author Type: Registered Nurse Type: Consults Filed: 03/21/2020 9:49 AM Note Text: OSTOMY CARE CONSULT NOTE SERVICE DATE: 03/21/2020 SERVICE TIME: 09 REASON FOR CONSULT: Urostomy care TIME SPENT (minutes): 30 Ostomy Assessment Stoma Type: Ileal conduit Location: RLQ Mucosal condition and color: [place] and moist Mucocutaneous junction: Not visible at this time Peristomal contour: Rounded Supportive Tissue: Semisoft Character of output: yellow with mucous shreds Emptying frequency per day:connected to bedside collection bag Current pouching system: Coloplast 2 piece flat [place] Urostomy Current wear time: 3-4 days, patient reports pouch changed on Friday03/18/2020 Next scheduled visit: of this week Supplies provided: ordered from central supply-Bedside RN updated. The bedside caregiver is responsible for ensuring ostomy supplies are sent with patient when patient is moved to another room, unit or facility. Counseling Provided:Patient reports that her daughter manages the care of her urostomy at home, changes pouch every 3-4 days. Thank you for including me in the care of this patient. Ostomy care to follow until discharge. A photo was taken of the patient's stoma. Photos can be found under the Get Images tab on [employer]. Photos are uploaded by the ostomy home health care respiratory therapist and may not be immediately available for viewing. Contact the wound and ostomy care department with questions. SIGNATURE: Aure Flores RN PATIENT NAME: Letty Trevino DATE: March 21, 2020 TIME: 9:42 AM CONTACT#: [id number] Normal [facility] CONSULT HNO ID: [id number] Author: Eddy Kay Service: Hematology/Oncology Author Type: Physician Type: Consults Filed: 03/21/2020 9:50 AM Note Text: LETTY TREVINO 69 year old HEMATOLOGY CONSULTATION: Severe macrocytic anemia 24 HOUR COMFORT MEDICATIONS: Subjective HPI: 69-year-old female status post pelvic exenteration in October 2019 for stage IIc T4 N1 M0 bladder carcinoma, status post neoadjuvant therapy but I do not have the regimen or length of therapy prior to her surgery, last chemotherapy August 2019, admitted secondary to sharp abdominal pain around her ileostomy site which also has been increasing in edema, warmth, and tenderness, CT was obtained at [facility] demonstrating an 8.2 x 4.5 cm subcutaneous fluid collection suspicious for inflammatory process laterally to the ileostomy on the right, she is also going [facility]. She denies any fever, chills, sweats, cough, sputum production, bleeding especially from her ileostomy site, or episodes of jaundice. Her laboratories show WBC of 5.46, hemoglobin 5.3, hematocrit 16, platelets 178,000, MCV 122.1, RDW 90, BMP remarkable for BUN 14, creatinine 1.26, calculated GFR 41.93 10/13/2019 PATHOLOGY: FINAL DIAGNOSIS: A) URETER, LEFT DISTAL, SEGMENTAL RESECTION - NEGATIVE FOR DYSPLASIA OR MALIGNANCY. B) URETER, RIGHT MARGIN, EXCISION - NEGATIVE FOR DYSPLASIA OR MALIGNANCY. C) LYMPH NODES, BILATERAL PELVIC, EXCISION - APPROXIMATELY 19 LYMPH NODES NEGATIVE FOR METASTATIC CARCINOMA. 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 ?TUMOR EXTENDS INTO LAMINA PROPRIA, MUSCULARIS PROPRIA AND PERIVESICULAR SOFT TISSUES WELL VAGINAL WALL. RESECTION MARGIN FOCALLY POSITIVE?(ANTERIOR WALL). ?LYMPHOVASCULAR INVASION PRESENT. ONE OF TWO LYMPH NODES POSITIVE FOR METASTATIC ADENOCARCINOMA. ?SEE COMMENT. COMMENT: ?Dr. Cb Draper reviewed entry level account representative slides from part D and agrees with the diagnosis. Urinary Bladder Cancer Case Summary Procedure: ???Anterior exenteration. Tumor site: Posterior, left wall, right wall, anterior wall, dome and ?trigone, right ureter. Tumor size: ?Greatest dimension: 6.5 cm. ?Additional dimensions: 6.2 x 2.3 cm. Histologic type: Urothelial carcinoma, invasive with focal ?micropapillary features. Histologic grade: ??High grade. Lymphovascular invasion: Present. Tumor extension: ??Tumor invades lamina propria, muscularis propria, deep ?muscularis propria (outer half), perivesical soft tissue ???macroscopically, and adjacent structures vagina. Margins: ???Involved by invasive carcinoma, soft tissue margin. Regional lymph nodes: ?Number involved: 1. ?Number examined: Approximately 21. Pathologic stage: ??pT4a pN1. OPERATIVE PROCEDURE: Robotic laparoscopic cystectomy w/intracorporeal ileal conduit urinary diversion, robotic laparoscopic surgical w/bilateral pelvic lymph node dissection, robotic anterior pelvic exenteration, ileal conduit Current Facility-Administered Medications Medication Dose Route Frequency Provider Last Rate Last Dose - loperamide 2 mg cap(s) (IMODIUM) 2 mg ORAL QID PRN [facility] - traMADol 50 mg tab(s) (ULTRAM) 50 mg ORAL AT BEDTIME [facility] - spironolactone 25 mg tab(s) (ALDACTONE) 25 mg ORAL BID 9a/5p [facility] - PARoxetine 20 mg tab(s) (PAXIL) 20 mg ORAL DAILY [facility] - sodium chloride 0.9 % (flush) 3-5 mL (BD POSIFLUSH) 3-5 mL INTRAVENOUS q 12 H [facility] - ondansetron 4 mg tab(s) (ZOFRAN) 4 mg ORAL q 6 H PRN [facility] Or - ondansetron (PF) 4 mg injection (ZOFRAN) 4 mg INTRAVENOUS q 6 H PRN [facility] - acetaminophen 650 mg tab(s) (TYLENOL) 650 mg ORAL q 6 H PRN [facility] - morphine 1-2 mg injection 1-2 mg INTRAVENOUS q 4 H PRN [facility] - vancomycin dosing and monitoring per pharmacy OTHER As Directed [facility] - cefTRIAXone 1 g in D5W 100 mL MB+ (ROCEPHIN) 1 g INTRAVENOUS q 24 H [facility] - furosemide 20 mg injection (LASIX) 20 mg INTRAVENOUS BID 9a/5p [facility] - vancomycin 2 g in D5W 500 mL (VANCOCIN) 0.015 g/kg/dose INTRAVENOUS q 24 HR [facility] - spironolactone (ALDACTONE) 25 mg tablet, Take 25 mg by mouth twice daily., Disp: , Rfl: - traMADol (ULTRAM) 50 mg tablet, Take 50 mg by mouth daily at bedtime., Disp: , Rfl: - loperamide (IMODIUM) 2 mg cap(s), Take 2 mg by mouth four times daily as needed for Diarrhea., Disp: , Rfl: - Miscellaneous Medical Supply misc, Ileal conduit/urostomy supplies: 1 box of Coloplast no-sting barrier film wipes (Ref #[id number]). 1 box of Coloplast no-sting adhesive remover (Ref #[id number]). 1 bottle of Coloplast stoma powder (Ref #[id number]). 1 tube of Coloplast stoma paste (Ref #[id number]). 1 box of Coloplast small rings (Ref #[id number]). 2 boxes of Coloplast Red flex flat cut-to-fit (Ref #[id number]). 1 box of Coloplast Red Urostomy clear pouches (Ref #[id number]). 1 Box of Coloplast Brava Elastic barrier strips (ref#[id number])., Disp: 1 Each, Rfl: 11 - ALBUTEROL INHALATION, Inhale 1 Inhalation as instructed as needed., Disp: , Rfl: - enoxaparin (LOVENOX) 40 mg/0.4 mL, INJECT THE CONTENTS OF 1 SYRINGE UNDER THE SKIN EVERY 24 HOURS., Disp: 9.2 mL, Rfl: 0 - PARoxetine (PAXIL) 20 mg tablet, Take 1 tablet by mouth once daily., Disp: 60 tablet, Rfl: 1 - furosemide (LASIX) 20 mg tablet, Take 1 tablet by mouth once daily. For 3 days to decrease fluid. Repeat in one month (Patient not taking: Reported on 03/20/2020 ), Disp: 3 tablet, Rfl: 1, Not Taking at Unknown time - zolpidem (AMBIEN) 5 mg tablet, Take 1 tablet by mouth at bedtime as needed for up to 5 days. for insomnia. (Patient not taking: Reported on 03/20/2020), Disp: 5 tablet, Rfl: 0, Not Taking at Unknown time - imipramine HCl (TOFRANIL) 10 mg tablet, Take 1 tablet by mouth daily at bedtime., Disp: 20 tablet, Rfl: 0 - dextroamphetamine-amphe tamine (ADDERALL) 5 mg tablet, Take 5 mg by mouth three times daily., Disp: , Rfl: Social History Tobacco Use - Smoking status: Light Tobacco Smoker - Smokeless tobacco: Never Used - Tobacco comment: 2 CIG/DAY. HX OF 2PPD X 25 YEARS Substance Use Topics - Alcohol use: Not Currently - Drug use: Never FAMILY HISTORY Problem Relation Age of Onset - Cancer Mother breast liver PAST SURGICAL HISTORY Procedure Laterality Date - CYSTOTOMY,EXCIS BLADDER TUMOR 04/23/2019 - HYSTERECTOMY HX 1972 - PAST SURGICAL HISTORY OF 1993 growth in throat removed - PAST SURGICAL HISTORY OF 08/2019 PROCEDURE TO DRAIN KIDNEY - PAST SURGICAL HISTORY OF 06/2019 MEDIPORT INSERTION ROS: All of the following reviewed and negative except as noted below: See history of present illness GENERAL: no fever, chills, sweats, weight loss, fatigue, generalized weakness HEENT: no headache, vision changes, eye discomfort, hearing change, ear discomfort, sinus pain, nasal discharge or congestion, oral lesions, soreness, dental problem NECK: no adenopathy, discomfort, change in ROM CHEST: no shortness of breath, dyspnea on exertion, wheezing, cough, sputum production or chest pain HEART: no chest pain, palpitations, syncope ABDOMEN: no nausea, vomiting, constipation, diarrhea, abdominal pain : no dysuria, urgency, frequency, history of stones, incontinence NEURO: no confusion or alteration in consciousness, slurred speech, seizure, focal weakness EXTREMITIES: no new pain, edema, change in ROM HEME: no new adenopathy, bruises, petechiae PSYCH: no depression, anxiety, agitation PHYSICAL EXAMINATION: see below for new or abnormal findings BP 114/52 Pulse 78 Temp 36.3 ?C (97.3 ?F) (Temporal) Resp 16 Ht 149.9 cm (4' 11) Wt (!) 182.1 kg (401 lb 7.3 oz) SpO2 98% BMI 81.08 kg/m? BMI 81.08 kg/(m2) *NOTE: I washed my hands prior to examination GENERAL: well nourished and developed; no acute distress; alert and oriented x 3; intact judgement and insight HEENT: no evidence of trauma; cranial nerves intact; eyes clear EOMI; no hearing deficits apparent; nasal passages unremarkable; throat and mucous membranes clear NECK: supple without lymphadenopathy; no JVD; no thyromegaly CHEST: clear bilaterally to auscultation; normal chest movement; no rales or rhonchi HEART: regular rate and rhythm, normal S1 and S2, no murmurs, clicks, rubs, or gallops ABDOMEN: soft; nondistended; bowel sounds present; no hepatomegaly; no splenomegaly; no tenderness EXTREMITIES: no evidence of clubbing; no cyanosis; no deformity; no joint effusion; no edema NEURO: cranial nerves intact; no focal deficits; no confusion; no tremor; sensorium normal SKIN: no rash; no skin breakdown; no decubitus lesions HEME: no bruising; no adenopathy PSYCH: no evidence of depression; no anxiety; no agitation; no apparent hallucinations PAIN PSYCHIATRIC EXAM: GENERAL: alert, oriented to person, place, time JUDGMENT AND INSIGHT: intact APPEARANCE: neatly groomed DEMEANOR: coooperative, not hostile, mistrustful, preoccupied, or demanding ACTIVITY: normal, not hyperactive or hypoactive, no tremors, tics EYE CONTACT: normal SPEECH: normal, rate, volume, articulation, coherence, spontaneity MOOD: normal, without overt sadness, grief, anxiety, appropriate to situation IDEATION: normal and without suicidal or homicidal ideation MEMORY: intact ABNORMAL/NEW FINDINGS: NONE RADIOLOGY/DIAGNOSTICS: LABORATORY: CBC: Recent Labs 03/21/20139 WBC 5.46 RBC 1.31* HB 5.3* HCT 16.0* PLT 178* MCV 122.1* MCH 40.5* MPV 9.3* RDW 20.3* CMP: Recent Labs 03/21/20139 NA 135* K 4.4 CHLOR 103 CO2 26 BUN 14 CREAT 1.26* GLUC 79 CA 8.1* ANION 6* Heme: No results for input(s): RETICP, ABSRETIC, LD, GHASSAN, FE, TIBC, TRANSFERSAT in the last 24 hours. ASSESSMENT ACTIVE PROBLEM LIST Bladder Cancer (Hcc) Obesity, Class II, Bmi 35-39.9 Abdominal Wall Abscess PLAN: Severe macrocytic anemia -Rule out B12, folate deficiency, hypothyroid, bone marrow failure disorder. -Bone marrow failure is a distinct possibility as she has had prior chemotherapy?neoadjuvan t for her bladder cancer, unknown chemotherapy regimen however. -Component may be secondary to anemia of chronic inflammation -Please note that she has had multiple transfusions since her surgery in October 2019. -Transfuse PRBCs as needed -Hematology workup ordered -May need to consider bone marrow aspiration and biopsy depending on results of this pending workup Abdominal wall abscess -Defer to primary service Stage IIc T4 aN1 M0 infiltrative bladder carcinoma status post pelvic exoneration 10/13/2019. -Status post neoadjuvant chemotherapy, no adjuvant chemotherapy, and no XRT. -Definitely at increased risk for recurrence. Eddy aKy M.D. [facility] CONSULT HNO ID: [id number] Author: Eddy Masterson Service: Urology Author Type: Physician Type: Consults Filed: 03/21/2020 1:47 PM Note Text: Urology Inpatient Consultation 03/20/2020 HISTORY OF PRESENT ILLNESS: The patient is a 69 year old female known to Dr. Yin for history of bladder cancer who is s/p radical cystectomy with ileal conduit on 10/13/2019. Final staging was pT4a pN1. Patient presents as transfer with swelling lateral to her urostomy site. She also endorses associated pain at this site. Labs showed anemia with a Hgb of 5.3 and SOO to 1.26. CT scan showed 8cm x 4.5cm abdominal subcutaneous fluid collection. Images recently uploaded to system. This morning, the patient was resting comfortably with few complaints. She denied any fevers, chills, dizziness or syncope. She states that the pain and swelling started a few weeks ago and got progressively worse. She also endorses associated nausea and vomiting. On exam, she has an area lateral to the urostomy site that is indurated, raised and erythematous. Her ileal conduit is draining yellow urine with some sediment, mucous covering the stoma. She denies any recent changes in urine color or odor. 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 - Uterine cancer (HCC) 1971 PAST SURGICAL HISTORY: PAST SURGICAL HISTORY Procedure Laterality Date - CYSTOTOMY,EXCIS BLADDER TUMOR 04/23/2019 - HYSTERECTOMY HX 1971 - PAST SURGICAL HISTORY OF 1993 growth in throat removed - PAST SURGICAL HISTORY OF 08/2019 PROCEDURE TO DRAIN KIDNEY - PAST SURGICAL HISTORY OF 06/2019 MEDIPORT INSERTION ALLERGIES: ALLERGIES Allergen Reactions - Bactrim [Sulfametho* GI Upset - Ciprofloxacin Vomiting - Penicillin G Rash HOME MEDICATIONS: - spironolactone (ALDACTONE) 25 mg tablet, Take 25 mg by mouth twice daily., Disp: , Rfl: - traMADol (ULTRAM) 50 mg tablet, Take 50 mg by mouth daily at bedtime., Disp: , Rfl: - loperamide (IMODIUM) 2 mg cap(s), Take 2 mg by mouth four times daily as needed for Diarrhea., Disp: , Rfl: - Miscellaneous Medical Supply misc, Ileal conduit/urostomy supplies: 1 box of Coloplast no-sting barrier film wipes (Ref #[id number]). 1 box of Coloplast no-sting adhesive remover (Ref #[id number]). 1 bottle of Coloplast stoma powder (Ref #[id number]). 1 tube of Coloplast stoma paste (Ref #[id number]). 1 box of Coloplast small rings (Ref #[id number]). 2 boxes of Coloplast Red flex flat cut-to-fit (Ref #[id number]). 1 box of Coloplast Red Urostomy clear pouches (Ref #86644). 1 Box of Coloplast Brava Elastic barrier strips (ref#[id number])., Disp: 1 Each, Rfl: 11 - ALBUTEROL INHALATION, Inhale 1 Inhalation as instructed as needed., Disp: , Rfl: - enoxaparin (LOVENOX) 40 mg/0.4 mL, INJECT THE CONTENTS OF 1 SYRINGE UNDER THE SKIN EVERY 24 HOURS., Disp: 9.2 mL, Rfl: 0 - PARoxetine (PAXIL) 20 mg tablet, Take 1 tablet by mouth once daily., Disp: 60 tablet, Rfl: 1 - furosemide (LASIX) 20 mg tablet, Take 1 tablet by mouth once daily. For 3 days to decrease fluid. Repeat in one month (Patient not taking: Reported on 03/20/2020 ), Disp: 3 tablet, Rfl: 1, Not Taking at Unknown time - zolpidem (AMBIEN) 5 mg tablet, Take 1 tablet by mouth at bedtime as needed for up to 5 days. for insomnia. (Patient not taking: Reported on 03/20/2020), Disp: 5 tablet, Rfl: 0, Not Taking at Unknown time - imipramine HCl (TOFRANIL) 10 mg tablet, Take 1 tablet by mouth daily at bedtime., Disp: 20 tablet, Rfl: 0 - dextroamphetamine-amphe tamine (ADDERALL) 5 mg tablet, Take 5 mg by mouth three times daily., Disp: , Rfl: FAMILY HISTORY: Family History Problem Relation Age of Onset - Cancer Mother breast liver Social History: Tobacco Use: Yes (2 CIG/DAY. HX OF 2PPD X 25 YEARS) Alcohol Use: Not Currently ROS: Constitutional: negative for chills and fevers HEENT: no blurry vision or eye redness Respiratory: negative for hemoptysis and shortness of breath Cardiovascular: negative for dyspnea and syncope Gastrointestinal: negative for jaundice, positive for nausea and vomiting Genitourinary:negative for hematuria Hematologic/lymphatic: negative for bleeding Integumentary: no new bruises or lesions Musculoskeletal:negativ e for muscle weakness Neurological: negative for coordination problems and seizures All other systems negative PHYSICAL EXAM: VITALS: 03/20/20 2307 03/21/20 0300 03/21/20 0325 03/21/20 0519 BP: (!) 119/38 (!) 103/40 (!) 106/42 114/52 Pulse: 65 90 81 78 Resp: 18 16 16 16 Temp: 36.4 ?C (97.5 ?F) 37.3 ?C (99.1 ?F) 36.8 ?C (98.2 ?F) 36.3 ?C (97.3 ?F) TempSrc: Temporal Temporal Temporal Temporal SpO2: 98% 98% Weight: (!) 182.1 kg (401 lb 7.3 oz) Height: 149.9 cm (4' 11) General: Alert, in no acute distress Head: Normocephalic, atraumatic Neck: supple, trachea is midline, no obvious masses Respiratory: normal effort, no audible wheezes Cardiovascular: regular pulse and no cyanosis Musculoskeletal: moving all extremities, normal tone Skin: warm and dry Psych: normal mood and affect, oriented Abdomen: soft, non distended, RUQ indurated region with mild erythema, ttp : ileal conduit draining yellow urine with sediment, mucous around the stoma DATA: LABS: BMP: . Glucose (mg/dL) Date Value 03/21/2020 79 Potassium (mmol/L) Date Value 03/21/2020 4.4 Sodium (mmol/L) Date Value 03/21/2020 135 Chloride (mmol/L) Date Value 03/21/2020 103 CO2 (mmol/L) Date Value 03/21/2020 26 Creatinine (mg/dL) Date Value 03/21/2020 1.26 BUN (mg/dL) Date Value 03/21/2020 14 Anion Gap (mmol/L) Date Value 03/21/2020 6 Calcium (mg/dL) Date Value 03/21/2020 8.1 CBC: HGB (g/dL) Date Value 03/21/2020 5.3 Hematocrit (%) Date Value 03/21/2020 16.0 WBC (thou/cmm) Date Value 03/21/2020 5.46 Platelet Count (thou/cmm) Date Value 03/21/2020 178 Urinalysis: PH (I-STAT) Date Value Ref Range Status 10/13/2019 7.419 7.350 - 7.450 Final Urine Culture: RADIOLOGY: CT Abd: - 8x4cm fluid collection on right side of abdomen that is subcutaneous, not intraperitoneal - very mild bilateral hydroureteronephrosis to the level of the conduit, expected with ileal conduit IMPRESSION: 69 year old female s/p radical cystectomy and ileal conduit for pT4a pN1 bladder cancer who presents with subcutaneous fluid collection, anemia, and SOO PLAN: - Imaging reviewed - fluid collection appears to be completely subcutaneous and not intra-peritoneal; low suspicion for urinoma and urine leak - No acute intervention for drainage at this time - Hgb 5.3 on admission. 2u pRBCs ordered per primary. Check Hgb after infusion - Cr 1.26 from baseline of ~0.7. Increase hydration. Monitor Cr daily - continue antibiotics per primary team as indicated - repeat imaging at 4-6 weeks to assess for resolution of the fluid collection - no acute intervention indicated at this time - urology to follow peripherally, please call or page with questions - discussed with Dr. Yin Thank you for allowing me to participate in the care of your patient Nick Mireles MD Urology, PGY-2 March 21, 2020 11:30 AM Pager: [phone] Ievaluated the patient. Discussed with the resident and agree with resident's findings and plan as documented in the resident's note. [facility] CONSULT PROGon 03-21-2020 CONSULT PROG HNO ID: [id number] Author: Juan Tate (Pharmacist) Service: Pharmacy Author Type: Pharmacist Type: Consult Progress Note Filed: 03/21/2020 10:50 AM Note Text: PHARMACY VANCOMYCIN DOSING NOTE Patient Name: Letty Trevino Admission Date: 03/20/2020 Date of Consult: 03/21/2020 Time of Consult: 10:37 AM Indication: Skin/Soft tissue infection Goal Range: 10-20 mcg/mL RECOMMENDATIONS/PLAN: Pharmacy consulted for vancomycin dosing for Letty Trevino, a 69 year old, female who is being treated with vancomycin for SSTI. 1. Patient is currently ordered Vancomycin 2 g q 24h. Today is day 1 of therapy. 2. No vancomycin level has been drawn for this dosing regimen. 3. The patient's weight in [facility] at the time of pharmacy consult was 182 kg. When I reviewed the consult I noticed that the weight was 82.6 kg (182 lbs). Verified with RN that actual weight is 79kg. Baseline creatinine looks to be 0.7 to 0.9. Current serum creatinine is 1.26. Due to the large first dose and elevation in serum creatinine we will dose by level initially. 4. The next vancomycin level has been ordered for 03-22 (Completed) We will follow patient renal function, vancomycin levels and doses with you during the course of therapy. Additional recommendations will appear in follow up notes. If you have any questions, please contact Juan Tate, Pharmacist at [phone]. Age: [age] year old Allergies: ALLERGIES Allergen Reactions - Bactrim [Sulfametho* GI Upset - Ciprofloxacin Vomiting - Penicillin G Rash Last 3 Encounter Wt Readings: Date: Wt: 03/20/2020 82.6 kg (182 lb 1.6 oz) 11/02/2019 89.4 kg (197 lb) 10/07/2019 89.4 kg (197 lb) Last 1 Encounter Ht Readings: Date: Ht: 03/20/2020 149.9 cm (4' 11) CrCl: 50 mL/min Temp (24hrs), Av.6 ?C (97.8 ?F), Min:36.1 ?C (97 ?F), Max:37.3 ?C (99.1 ?F) - Current Temp: 36.1 ?C (97 ?F) Labs BUN (mg/dL) Date Value 03/21/2020 14 10/18/2019 14 10/17/2019 19 (H) Creatinine (mg/dL) Date Value 03/21/2020 1.26 (H) 10/18/2019 0.65 10/17/2019 0.71 WBC (thou/cmm) Date Value 03/21/2020 5.46 10/18/2019 12.67 (H) 10/17/2019 9.83 Vancomycin Levels: No results found for: THIERNO Tate, Pharmacist [facility] CONSULT PROG HNO ID: [id number] Author: Caroline Gramajo (Pharmacist) Service: Pharmacy Author Type: Pharmacist Type: Consult Progress Note Filed: 03/21/2020 4:05 AM Note Text: PHARMACY VANCOMYCIN DOSING NOTE Patient Name: Letty Trevino Admission Date: 03/20/2020 Date of Consult: 03/21/2020 Time of Consult: 3:42 AM Indication: Skin/Soft tissue infection Goal Range: 10-20 mcg/mL RECOMMENDATIONS/PLAN: Pharmacy consulted for vancomycin dosing for Letty Trevino, a 69 year old, female who is being treated with vancomycin for skin/soft tissue infection. 1. Patient is currently ordered Vancomycin 2 g q 24h. Today is day 1 of therapy. Pt's SCr = 1.26 which is increased from October when it ranged from 0.65-0.85. 2. No vancomycin level has been drawn for this dosing regimen. 3. The present dose of vancomycin is the recommended dosage for this patient at this time. Continue therapy as prescribed. 4. The next vancomycin level will be ordered for prior to the 4th dose unless clinically indicated sooner. (Pharmacy will order) We will follow patient renal function, vancomycin levels and doses with you during the course of therapy. Additional recommendations will appear in follow up notes. If you have [place] [phone]. Age: [age] year old Allergies: ALLERGIES Allergen Reactions - Bactrim [Sulfametho* GI Upset - Ciprofloxacin Vomiting - Penicillin G Rash Last 3 Encounter Wt Readings: Date: Wt: 03/20/2020 182.1 kg (401 lb 7.3 oz) 11/02/2019 89.4 kg (197 lb) 10/07/2019 89.4 kg (197 lb) Last 1 Encounter Ht Readings: Date: Ht: 03/20/2020 149.9 cm (4' 11) CrCl: 119 mL/min Temp (24hrs), Av.8 ?C (98.3 ?F), Min:36.4 ?C (97.5 ?F), Max:37.3 ?C (99.1 ?F) - Current Temp: 36.8 ?C (98.2 ?F) Labs BUN (mg/dL) Date Value 03/21/2020 14 10/18/2019 14 10/17/2019 19 (H) Creatinine (mg/dL) Date Value 03/21/2020 1.26 (H) 10/18/2019 0.65 10/17/2019 0.71 WBC (thou/cmm) Date Value 03/21/2020 5.46 10/18/2019 12.67 (H) 10/17/2019 9.83 Vancomycin Levels: No results found for: THIERNO GRAMAJO, PHARMACIST [facility] CT BRAIN WO IVCONon 03-21-[address] BRAIN WO IVCON Final Report DATE OF EXAM: Mar 21 2020 4:24PM [facility] 0504 - CT BRAIN WO IVCON / PROCEDURE REASON: Encephalopathy Physician Interpretation EXAMINATION: CT BRAIN WO IVCON CLINICAL HISTORY: Encephalopathy with history of bladder cancer. TECHNIQUE: Serial axial images without IV contrast were obtained from the vertex to the foramen magnum. MQ: CTBWO_3 CT Dose-Length Product (DLP): [address] Dose Reduction Employed: Iterative recon COMPARISON: Outside MR brain 06/25/2019 RESULT: Post-operative change: None. Acute change: No evidence of an acute infarct or other acute parenchymal process. Hemorrhage: No evidence of acute intracranial hemorrhage. Mass Lesion / Mass Effect: There is no evidence of an intracranial mass or extraaxial fluid collection. No significant mass effect. Chronic change: There is parenchymal hypodensity in the left medial parietal region extending to the left lateral ventricle atrium. This was not present on 06/25/2019 Parenchyma: There is mild to moderate generalized volume loss. The brain parenchyma is otherwise within normal limits for age. Ventricles: Ventricular enlargement concordant with the degree of parenchymal volume loss. Paranasal sinuses and skull base: The visualized paranasal sinuses are grossly clear. The skull base and imaged soft tissues are unremarkable. Propagator (topogram) images: Unremarkable. IMPRESSION: No acute intracranial findings. Left medial parietal parenchymal hypodensity likely represents subacute or chronic infarct. Projector Booth Operator: LAKEISHA Transcribe Date/Time: Mar 21 2020 4:26P Dictated by : HECTOR PEREZ MD This examination was interpreted and the report reviewed and electronically signed by: HECTOR PEREZ MD on Mar 21 2020 4:32PM [facility] Normal [facility] ECG COMPLETEon 03-21-2020 ECG COMPLETE NAME : LETTY MORENO PID : [id number] : 1950 Gender : Female Race : ORD : [id number] Procedure Date : Mar 21 2020 19:00:06 Edit Date : Mar 23 2020 16:16:45 Diagnosis:SINUS TACHYCARDIA RIGHT BUNDLE BRANCH BLOCK LEFT POSTERIOR FASCICULAR BLOCK BIFASCICULAR BLOCK ABNORMAL ECG WHEN COMPARED WITH ECG OF 07-OCT-2019 12:55, T WAVE INVERSION NOW EVIDENT IN ANTERIOR LEADS Confirmed by MD MCPHERSON FERNANDO ([id number]) on 03/23/2020 4:16:44 PM Ventricular Rate : 120 BPM Atrial Rate : 120 BPM P-R Interval : 134 ms QRS Duration : 116 ms Q-T Interval : 342 ms QTC Calculation(Bazett) : 483 ms P [place] : 43 degrees R [place] : 119 degrees T [place] : 50 degrees Test Reason : Arrhythmia Location : 183 : U 3221 Overread By : MD MCPHERSON FERNANDO Edited By : MD MCPHERSON FERNANDO Referred By : NINO NIX Acquired by : KAITY URBAN [facility] Ferritinon 03-21-2020 Ferritin [Mass/Vol] 580.8 ng/mL High 14.7-205.1 [facility] Comment on above: Result Comment: Nunu ents taking a biotin dose of up to 5 mg/day should refrain from taking biotin for 4 hours prior to sample collection. Patients taking a biotin dose of 5 to 10 mg/day should refrain from taking biotin for 8 hours prior to sample collection. Patients taking a biotin dose > 10 mg/day should consult with their physician or the laboratory prior to having a sample taken. Clinicians should consider biotin interference as a source of error, when clinically suspicious of the laboratory result. Performed By: #### G LMET #### [place] [id number] Folateon 03-21-2020 Folate 3.8 ng/mL Low > 4.7 [facility] Comment on above: Result Comment: A re sult of > 20 ng/mL is not necessarily indicative of a pathologic or treatable condition; it reflects a limitation of the test methodology. This assay?s reference range is 4.8 to 24.2 ng/mL. This test is suitable for detection of folate deficiency. Patients taking a biotin dose of up to 5 mg/day should refrain from taking biotin for 4 hours prior to sample collection. Patients taking a biotin dose of 5 to 10 mg/day should refrain from taking biotin for 8 hours prior to sample collection. Patients taking a biotin dose > 10 mg/day should consult with their physician or the laboratory prior to having a sample taken. Clinicians should consider biotin interference as a source of error, when clinically suspicious of the laboratory result. Performed By: #### G FR #### [address] [address] Free Thyroxineon 03-21-2020 Free T4 [Mass/Vol] 1.0 ng/dL Normal 0.9-1.7 [facility] Comment on above: Result Comment: Nunu ents taking a biotin dose of up to 5 mg/day should refrain from taking biotin for 4 hours prior to sample collection. Patients taking a biotin dose of 5 to 10 mg/day should refrain from taking biotin for 8 hours prior to sample collection. Patients taking a biotin dose > 10 mg/day should consult with their physician or the laboratory prior to having a sample taken. Clinicians should consider biotin interference as a source of error, when clinically suspicious of the laboratory result. Performed By: #### G #### [facility] [address] [place] [id number] HISTORY PHYSICALon 0 HISTORY PHYSICAL HNO ID: [id number] Author: Eddie Carey Service: Hospital Medicine Author Type: Physician Type: HANDP Filed: 03/21/2020 1:28 AM Note Text: DEPARTMENT OF HOSPITAL MEDICINE HISTORY AND PHYSICAL EXAM SERVICE DATE: 03/21/2020 SERVICE TIME: 1:20 AM Primary Care Physician: Parminder Guajardo, DO NIGHT AND WEEKEND COVERAGE: [employer] COVERAGE: From 7am - 7pm, please call [phone] After 7pm, please call cross cover pager #[phone] Subjective CHIEF COMPLAINT: Abdominal swelling at the ileostomy site HPI: 69yo F with a pertinent history of T4N1 bladder cancer s/p cystectomy with ileostomy placement in October 2019, and completed chemotherapy and radiation in December 2019. Patient sees Dr. Yin who did the surgery. Patient for the last weeks noticed increased swelling, warmth, and tenderness at her ileostomy site which brought her to [facility] from where she was transferred here. Patient has sharp 8/10 pain in the region. ON Ct abdomen/pelvis done at [facility] (check records on chart) she was found to have a 8.2 x 4.5cm subcutanous fluid collection suspicion for an inflammatory process at the lateral aspect of the ileostomy side on thr right. No fever/chills, no cough, no chest pain, no dyspnea no bright red bloody stools nor melena. Past medical, social, surgical, and family history as below. 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 HX OF 2PPD X 25 YEARS Substance Use Topics - Alcohol use: Not Currently - Drug use: Never MEDICATIONS: Reviewed - spironolactone (ALDACTONE) 25 mg tablet, Take 25 mg by mouth twice daily., Disp: , Rfl: - traMADol (ULTRAM) 50 mg tablet, Take 50 mg by mouth daily at bedtime., Disp: , Rfl: - loperamide (IMODIUM) 2 mg cap(s), Take 2 mg by mouth four times daily as needed for Diarrhea., Disp: , Rfl: - Miscellaneous Medical Supply misc, Ileal conduit/urostomy supplies: 1 box of Coloplast no-sting barrier film wipes (Ref #[id number]). 1 box of Coloplast no-sting adhesive remover (Ref #068965). 1 bottle of Coloplast stoma powder (Ref #90731). 1 tube of Coloplast stoma paste (Ref #2650). 1 box of Coloplast small rings (Ref #886663). 2 boxes of Coloplast Red flex flat cut-to-fit (Ref #55958). 1 box of Coloplast Red Urostomy clear pouches (Ref #39763). 1 Box of Coloplast Brava Elastic barrier strips (ref#[id number])., Disp: 1 Each, Rfl: 11 - ALBUTEROL INHALATION, Inhale 1 Inhalation as instructed as needed., Disp: , Rfl: - enoxaparin (LOVENOX) 40 mg/0.4 mL, INJECT THE CONTENTS OF 1 SYRINGE UNDER THE SKIN EVERY 24 HOURS., Disp: 9.2 mL, Rfl: 0 - PARoxetine (PAXIL) 20 mg tablet, Take 1 tablet by mouth once daily., Disp: 60 tablet, Rfl: 1 - furosemide (LASIX) 20 mg tablet, Take 1 tablet by mouth once daily. For 3 days to decrease fluid. Repeat in one month (Patient not taking: Reported on 03/20/2020 ), Disp: 3 tablet, Rfl: 1, Not Taking at Unknown time - zolpidem (AMBIEN) 5 mg tablet, Take 1 tablet by mouth at bedtime as needed for up to 5 days. for insomnia. (Patient not taking: Reported on 03/20/2020), Disp: 5 tablet, Rfl: 0, Not Taking at Unknown time - imipramine HCl (TOFRANIL) 10 mg tablet, Take 1 tablet by mouth daily at bedtime., Disp: 20 tablet, Rfl: 0 - dextroamphetamine-amphe tamine (ADDERALL) 5 mg tablet, Take 5 mg by mouth three times daily., Disp: , Rfl: ALLERGIES Allergen Reactions - Bactrim [Sulfametho* GI Upset - Ciprofloxacin Vomiting - Penicillin G Rash REVIEW OF SYSTEM: General: no fatigue, no weakness, no fever/chills HEENT: no cough, no nasal congestion, no sore throat Respiratory: no cough, no shortness of breath, no wheezing, no hemoptysis, Cardio: no chest pain, no exertional dyspnea, no leg swelling, no palpitations GI: no nausea, no vomiting, no diarrhea, abdominal pain : no dysuria, no frequency, no incontinence Musculoskeletal: no joint pain, no joint swelling, no muscle pain, no back pain Skin: no rashes, no ulcers, no itching Endocrine: no cold nor heat intolerance, no polyuria, no goiter Neuro: no headaches, no syncope, no paralysis, no seizures, no tremors Objective PHYSICAL EXAM: BP 119/38 Pulse 65 Temp (Src) 97.5 (Temporal) Resp 18 Ht 4' 11 (1.50m) Wt 401 lb 7.3 oz (182.1kg) SpO2 98% BMI 81.04 kg/(m2). O2 Therapy: Room Air Physical Exam Performed: GENERAL: Alert, no distress, cooperative SKIN: Skin color, texture, turgor normal. No rashes or lesions. EYES: PERRLA, EOMI LUNGS: Lungs clear to auscultation, Good diaphragmatic excursion, no wheezing, no crackles CARDIAC: Normal S1 and S2; no rubs, murmurs, or gallops, RRR ABDOMEN: right sided ileostomy intact, lateral to this is a large abdominal swelling and hard tender mass, erythematous. EXTREMITIES: Extremities normal, no deformities, edema, clubbing or skin discoloration. Good capillary refill., No ulcers NEURO: Gait normal. Reflexes normal and symmetric. Sensation grossly intact, Cranial nerves II-XII intact PULSES: 2+ radial, 2+ carotid Lines, Drains, and Airways Line Implanted Vascular Access Device Single Port Right Chest -- days DATA: Diagnostic tests reviewed for today's visit: Most recent labs and imaging results. 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 Chronic: 4) History of uterine cancer at 21 years old s/p hysterectomy 5) Depression Plan: - Urology consult to assess this, may need IR for fluid collection drainage will allow urology to decide - IV Vancomycin and Rocephin to cover empirically - IV Lasix 20mg BID - Continue home tramadol, paxil, aldactone - IV Morphine 1-2mg Q4hrs as needed for pain - 2 units of PRBC check H+H Q8hrs - Hematology/Oncology consult Full Code Medication and Non-Pharmacologic VTE Prophylaxis/Anticoagula nts 03/21/20 013 vte pharmacologic prophylaxis contraindicated (pa,tn) 03/21/20129 vte non-pharmacologic prophylaxis - none indicated (pa,tn) 03/21/20129 activity - mobilize patient ([place], [place]) VTE Prophylaxis: VTE prophylaxis appropriate Disposition: To be determined Plan of care discussed with: Provider, RN, Patient SIGNATURE: Eddie Carey MD PATIENT NAME: Letty Trevino DATE: March 21, 2020 TIME: 1:20 AM PAGER/CONTACT #: [phone] etx [phone] Normal [facility] Haptoglobinon 03-21-2020 Haptoglobin 177 mg/dL Normal 31-238 [facility] Comment on above: Performed By: #### G FR #### [facility] [address] [place], [place] [address] Hcton 03-21-2020 Hematocrit (Bld) [Volume fraction] 29.9 % Low 34.1-44.9 [facility] Comment on above: Performed By: #### G LMET #### [facility] [address] [place], [place] [address] Hematocrit (Bld) [Volume fraction] 26.1 % Low 34.1-44.9 [facility] Comment on above: Performed By: #### G FR #### [facility] [address] [place] [address] Hemogramon 03-21-2020 Erythrocyte distribution width (RBC) [Ratio] 20.3 % High 11.7-14.4 [facility] Comment on above: Performed By: #### P 8 #### [facility] [address] [place] [address] Hematocrit (Bld) [Volume fraction] 16.0 % Critically low 34.1-44.9 [facility] Comment on above: Performed By: #### P 8 #### [facility] [address] [place] [address] Hemoglobin (Bld) [Mass/Vol] 5.3 g/dL Critically low 11.2-15.7 [facility] Comment on above: Performed By: #### P 8 #### [facility] [address] [place] [address] MCH (RBC) [Entitic mass] 40.5 pg High 25.6-32.2 [facility] Comment on above: Performed By: #### P 8 #### [facility] [address] [place] [address] MCHC (RBC) [Mass/Vol] 33.1 % Normal 31.6-34.8 [facility] Comment on above: Performed By: #### P 8 #### [facility] [address] [place] [address] MCV (RBC) [Entitic vol] 122.1 fL High 79.4-94.8 [facility] Comment on above: Performed By: #### P 8 #### [facility] [address] [place] [address] Platelet mean volume (Bld) [Entitic vol] 9.3 fL Low 9.4-12.3 [facility] Comment on above: Performed By: #### P 8 #### [facility] [address] [place] [address] Platelets (Bld) [#/Vol] 178 thou/cmm Low 182-369 [facility] Comment on above: Performed By: #### P 8 #### [facility] [address] [place] [address] RBC (Bld) [#/Vol] 1.31 mil/cmm Low 3.93-5.22 [facility] Comment on above: Performed By: #### P 8 #### [facility] [address] [place] [address] RDW SD 90.0 fl High 36.4-46.3 [facility] Comment on above: Performed By: #### P 8 #### [facility] [address] [place] [address] WBC (Bld) [#/Vol] 5.46 thou/cmm Normal 3.98-10.04 [facility] Comment on above: Performed By: #### P 8 #### [place] [address] Hgbon 03-21-2020 Hemoglobin (Bld) [Mass/Vol] 10.4 g/dL Low 11.2-15.7 [facility] Comment on above: Performed By: #### G LMET #### [place] [address] Hemoglobin (Bld) [Mass/Vol] 8.8 g/dL Low 11.2-15.7 [facility] Comment on above: Performed By: #### G FR #### [place] [address] Iron % Saturationon 03-21-20 20 Iron % Saturation see below Normal 15-57 [facility] Comment on above: Result Comment: Unab le to calculate Iron % Saturation. Performed By: #### G LMET #### [place] [address] Iron Serum 46 ug/dL Normal 41-186 [facility] Comment on above: Performed By: #### G LMET #### [place] [address] Total Iron Binding Cap. see below Normal 232-386 A [facility] Comment on above: Result Comment: Unbo und Iron Binding <17 ug/dL, unable to calculate the Total Iron Binding Capacity. Performed By: #### G LMET #### [facility] [address] [place], [place] [address] LD, Total Bloodon 03-21-2020 LD, Total Blood 112 U/L Low 135-214 [facility] Comment on above: Performed By: #### G FR #### [facility] [address] [place], [place] [address] NURSING PROGon 03-21-2020 NURSING PROG HNO ID: [id number] Author: Bridgette ShahRn) Leena, RN Service: Nursing Author Type: Registered Nurse Type: Nursing Progress Note Filed: 03/21/2020 10:28 PM Note Text: Nursing Progress Note Patient Name: Letty Trevino Patient [facility] -01 Daily Note:Pt very agitated and demanding nursing staff to call her and have him pick her up. Pt stating she will call the police because we were keeping her hostage. Sound notified at 1871. Will continue to monitor. 2005: Ativan given as ordered. Will continue to monitor. 2030: Pt daughter Apryl called. Apryl very concerned about her mother after talking to her on the phone. Apryl stated that the way her mother is acting is not normal. She is concerned that there is something neurologically going on with her. Apryl also stated that she would like social work involved to help with options when her mother is discharged. Per Apryl her mother has failed and cancelled multiple home PT appointments and has not been ambulating since October. Apryl is the main lock expert of her mother and she would like information on either Respite or Palliative care. This note was completed by: Bridgette Stern RN Normal [facility] NURSING PROG HNO ID: [id number] Author: Clara ShahRn) LUIS Riggs Service: Nursing Author Type: Registered Nurse Type: Nursing Progress Note Filed: 03/21/2020 3:50 PM Note Text: Nursing Progress Note Patient Name: Letty Trevino [facility] - pt is increasingly agitated and wishes to leave the hospital. Advised pt need to stay in hospital given her clinical findings. Patient does not wish to stay and Would like to leave. And will call the electric motor repairer to get her out Will Paged Janell and discuss changes This note was completed by: Clara Riggs RN [facility] NURSING PROG HNO ID: [id number] Author: Bridgette Olivas) LUIS Stern Service: Nursing Author Type: Registered Nurse Type: Nursing Progress Note Filed: 03/21/2020 6:11 AM Note Text: Nursing Progress Note Patient Name: Letty Trevino [facility] Daily Note:Pt very upset this morning; stating that she is starving and has not eaten in 2 days. This RN brought the Pt snacks when a diet order was obtained and informed the Pt that there is not much to choose from currently. This RN also informed the Pt that she will receive a breakfast tray, but there is nothing further I could bring her when the kitchen is not open. Pt remains very upset. This note was completed by: Bridgette Stern RN [facility] NURSING PROG HNO ID: [id number] Author: Bridgette Stern RN Service: Nursing Author Type: Registered Nurse Type: Nursing Progress Note Filed: 03/21/2020 12:38 AM Note Text: Nursing Progress Note Patient Name: Letty Trevino Patient [facility] Daily Note:Sound repaged for admitting orders. Will continue to monitor. This note was completed by: Bridgette Stern RN [facility] NUTRITIONon 03-21-2020 NUTRITION HNO ID: [id number] Author: Cheyenne Woodard Service: Nutrition Therapy Author Type: Registered Dietitian Type: Nutrition Filed: 03/21/2020 11:51 AM Note Text: NUTRITION THERAPY INITIAL ASSESSMENT SERVICE DATE: 03/21/2020 SERVICE TIME: 9:38 AM Nutrition Assessment: Recommended Malnutrition Diagnosis: Unable to Identify Malnutrition at this time(limited history d/t patient declined visit from RD. ) Nutrition Diagnosis: Problem: Increased nutrient needs Related to: Chronic illness As evidenced by: Medical condition Estimated kilocalorie needs: [id number] Calorie Calculation Method: 30-35 kcals/kg Estimated protein needs (grams): 52-69 Grams protein determined by: 1.2-1.6 g/kg Care Plan: Continue current diet(Regular) Supplements: (Refused. Recommend if patient agreeable to support intake. ) Monitor and Evaluation: Meet greater than 75% of estimated needs;Monitor fluid/electrolyte balance;Monitor labs, I/Os, vital signs, weight;Monitor bowel function Discharge Recommendations: Diet;Oral Supplements Diet: Regular Oral Supplements: As needed. ------ Reason for Assessment: MST HPI: 69yo F with a pertinent history of T4N1 bladder cancer s/p cystectomy with ileostomy placement in October 2019, and completed chemotherapy and radiation in December 2019. Admitted with Abdominal wall mass vs abscess at the lateral part of the ileostomy site. 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 ) over: Patient upset about my visit. reports losing weight awhile ago. Gradual loss since October - reported it was unitentional d/t having cancer. Refused further qeustions or NFPE. Current Diet: DIET REGULAR Anthropometrics: Height: 149.9 cm (4' 11) Weight: 79.8 kg (175 lb 14.8 oz) Dosing Weight: 43 kg (94 lb 12.8 oz) Usual Weight: 83 kg (182 lb 15.7 oz) Body mass index is 35.53 kg/m?. Obese Weight change percentage over time: 2.5 - 7.6 % weight loss over the past 6 months. Clinically insignifcant. Last Wt 03/20/20 : 82.6 kg (182 lb 1.6 oz) 12/08/19 : 72.7 kg 11/02/19 : 89.4 kg (197 lb) 10/13/19 : 84.4 kg (186 lb) 10/07/19 : 89.4 kg (197 lb) 09/22/19 : 89.4 kg (197 lb) Physical Exam: Reason NFPE not performed: Declined Functional Status: Unable to assess Potential Signs of Inflammation: Chronic condition;Imaging studies SIGNATURE: Cheyenne Woodard RD, LD PATIENT NAME: Letty Trevino DATE: March 21, 2020 TIME: 9:38 AM PAGER: [phone] [facility] PROGRESSon 03-21-2020 PROGRESS HNO ID: [id number] Author: Mahnaz Maciel Service: Hospital Medicine Author Type: Physician Type: Progress Notes Filed: 03/21/2020 3:34 PM Note Text: Called by nursing that patient wishes to leave hospital. Per nursing and daughter have told her to stay. When I enter the room, patient is sitting at edge of bed. She told me that she is getting the hell out of here. She states that when we get a plan and when we get proper ostomy care and make arrangements then she will come back. I advised her that due to her numerous acute medical conditions that are actively being treated I cannot discharge her safely at this time. I attempted to explain to her the different acute medical conditions she has at this time. She interrupted me numerous times and raised her voice telling me not to feed her a bunch of bullcrap. I explained to her that she has a fluid collection in her abdomen that could potentially be an infection and she requires IV antibiotics for this. If it is indeed infectious and she is not treated appropriately it can lead to overwhelming infection or sepsis and lead to . I explained to her that she has a R oblique hematoma that was enlarged on CT scan. I explained that her hemoglobin was very low requiring transfusion and we have not yet confirmed that her blood counts are stable or that the bleeding has stopped. If she continues to bleed this can cause . I explained to her that she has an acute DVT in her right leg. If this clot dislodges and travels to her lung to become a pulmonary embolism this can cause . I asked her to repeat to me what health issues have her in the hospital and what the consequences of her leaving would be. She told me that I said if she leaves she will . She told me that she is tired of living, but has no plans to harm herself. When I asked her again to tell me her acute medical conditions she could not repeat them to me. She admitted that she didn't know. At this time as the patient cannot tell me why she is in the hospital and the consequences of her action of leaving against medical advice I do not feel she has the capacity to make an informed decision regarding this. She appears to lack insight into her current health conditions and the consequences that would come with her decision to leave against medical advice. Psychiatry consulted. Nursing was at bedside with me during interaction. Mahnaz Maciel DO March 21, 2020 3:34 PM [facility] PROGRESS HNO ID: [id number] Author: Mahnaz Maciel Service: Hospital Medicine Author Type: Physician Type: Progress Notes Filed: 03/21/2020 1:37 PM Note Text: US positive for acute R external iliac and common femoral vein DVTs. Patient with worsening R oblique hematoma and anemia requiring transfusion. Unable to anticoagulate this patient. Vascular surgery consult for IVC filter in place. DC SCDs. Nursing updated. Mahnaz Maciel DO March 21, 2020 1:37 PM [facility] PROGRESS HNO ID: [id number] Author: Mahnaz Maciel Service: Hospital Medicine Author Type: Physician Type: Progress Notes Filed: 03/21/2020 3:49 PM Note Text: DEPARTMENT OF HOSPITAL MEDICINE PROGRESS NOTE SERVICE DATE: 03/21/2020 SERVICE TIME: 8:36 AM Hospital Medicine/Primary Attending: Mhanaz Maciel DO NIGHT AND WEEKEND COVERAGE: BROOKS COVERAGE: From 7am - 7pm, please call 2022 After 7pm, please call cross cover pager #[phone] Subjective INTERVAL HPI: Pt seen and examined. Epic reviewed. Pt admitted by my colleague earlier this am for increased swelling and redness at ileostomy site. She was found to be anemic with enlarged hematoma along oblique muscle and to have a mass/abscess lateral to ileostomy site. She was started on antibiotics and ED attempted to aspirate mass. Just finished 2 units rbc. CO pain in the right abdomen at mass site. Notes that she fell approx 3 weeks ago and landed on her side, but cannot recall which one. She has no cp or sob. Legs were very swollen at home, but better now. Sore bereket on the left. No fevers or chills. When discussing plan of care patient informed me that she would not be staying here long. MEDICATIONS: Reviewed Objective PHYSICAL EXAM: BP 120/43 Pulse 85 Temp (Src) 97 (Temporal) Resp 16 Ht 4' 11 (1.50m) Wt 182 lb 1.6 oz (82.6kg) SpO2 99% BMI 36.76 kg/(m2). O2 Therapy: Room Air Physical Exam Performed GENERAL: Alert, no distress, cooperative HEAD/SINUSES: No significant findings EYES: PERRLA, EOMI OROPHARYNX: Lips, mucosa, and tongue normal. Teeth and gums normal. Oropharynx normal. LUNGS: Lungs clear to auscultation, Good diaphragmatic excursion CARDIAC: Normal S1 and S2; no rubs, murmurs, or gallops ABDOMEN: soft large baseball size mass right lateral to ileostomy ttp with erythema. firm. drainage from ileostomy. EXTREMITIES: 1+ edema of bilat leg L>R with calf pain NEURO: Grossly normal cognition, motor function, and cranial nerves III-XII Lines, Drains, and Airways Line Implanted Vascular Access Device Single Port Right Chest -- days Reviewed lines and needs to be continued: REASONS: Difficulty in obtaining/maintaining access DATA: Diagnostic tests reviewed for today's visit: Most recent labs and imaging results. Assessment/Plan 1. Abdominal wall mass vs abscess near ileostomy site: on consult. Empiric antibx. Likely will need IR drainage. 2. Metastatic bladder cancer: lymph node involvement. on consult. Had cystectomy and ileostomy 10/2019. S/P radiation in 12/2019. Per bi notes also undergoing chemo. Oncology consult. 3. Anemia, acute on chronic: due to blood loss and chemo. transfuse and recheck labs. Monitor H/H closely. Hematology oncology consult. consult. Macrocytic. Check B12. Transfuse <7. Monitor for overt bleeding. Check iron stores. 4. R oblique hematoma: noted to be significantly worsening on CT scan. Will need close monitoring. Transfuse. No anticoag or asa. Repeat CT if Hg doesn't improve. 5. Left leg edema and calf pain: US to RO DVT. 6. SOO: IV fluids. 7. Hepatic steatosis 8. Adrenal lesion possible adenoma Medication and Non-Pharmacologic VTE Prophylaxis/Anticoagula nts 03/21/20 0745 pneumatic compression stockings (pa,tn) 03/21/20 0130 vte pharmacologic prophylaxis contraindicated (pa,tn) 03/21/20 0130 vte non-pharmacologic prophylaxis - none indicated (pa,tn) 03/21/20 0130 activity - mobilize patient (pa,tn) VTE Prophylaxis: Contraindicated due to anemia and worsening hematoma Disposition: To be determined Plan of care discussed with: Provider, RN, Patient SIGNATURE: Mahnaz Maciel DO PATIENT NAME: Letty Trevino DATE: March 21, 2020 TIME: 8:36 AM PAGER/CONTACT #: [phone] [facility] RBC Productson 03-21-2020 Xmatch Unit 1 see below [facility] [place] Comment on above: Result Comment: Comp atible Performed By: #### G FR #### [facility] [address] [place], [place] [address] Xmatch Unit 2 see below Normal [facility] Comment on above: Result Comment: Comp atible Performed By: #### G FR #### [facility] [address] [place], [place] [address] Reticulocyte Counton 020 Absolute Reticulocyte 0.063 mil/cmm Normal 0.038-0.095 [facility] Comment on above: Performed By: #### G LMET #### [facility] [address] [place] [address] Immature Retic Fractions 21.5 % High 3.0-15.9 [facility] Comment on above: Performed By: #### G LMET #### [facility] [address] [place], [place] [address] Retic Hemoglobin Equivalent 39.4 pg High 27.9-38.4 [facility] Comment on above: Performed By: #### G LMET #### [facility] [address] [place] [address] 2.5 % High 1.0-2.1 [facility] Comment on above: Performed By: #### G LMET #### [facility] [address] [place] [address] TSHon 03-21-2020 TSH Qn 2.050 uIU/mL Normal 0.270-4.200 [facility] Comment on above: Result Comment: Preg loin: 1st trimester:(9-12 weeks):0.180-2.900 uIU/mL 2nd trimester: 0.110-3.980 uIU/mL 3rd trimester: 0.480-4.710 uIU/mL Patients taking a biotin dose of up to 5 mg/day should refrain from taking biotin for 4 hours prior to sample collection. Patients taking a biotin dose of 5 to 10 mg/day should refrain from taking biotin for 8 hours prior to sample collection. Patients taking a biotin dose > 10 mg/day should consult with their physician or the laboratory prior to having a sample taken. Clinicians should consider biotin interference as a source of error, when clinically suspicious of the laboratory result. Performed By: #### G FR #### [facility] [address] [place] [address] Type and Screenon 03-21-2020 ABO group Nom (Bld) B Normal [facility] Comment on above: Performed By: #### P 8 #### [facility] [address] [place] [address] Comment See Below Normal [facility] Comment on above: Result Comment: Scre en &/or Xmatch expires in 3 days at 12 midnight. Redraw patient at that time. Performed By: #### P 8 #### [facility] [address] [place] [address] RH Type Positive Normal [facility] Comment on above: Performed By: #### P 8 #### [facility] [address] [place] [address] US DVT LOWER BILon 0 US DVT LOWER MARCELINO Final Report DATE OF EXAM: Mar 21 2020 1:05PM [facility] 1005 - US DVT LOWER MARCELINO / PROCEDURE REASON: Leg swelling Physician Interpretation EXAMINATION: RIGHT AND LEFT LOWER EXTREMITY DEEP VENOUS ULTRASOUND WITH DOPPLER IMAGING CLINICAL HISTORY: Lower extremity swelling TECHNIQUE: Grayscale with compression maneuvers, color Doppler and spectral Doppler at rest and with augmentation of the right and left distal external iliac, common femoral, femoral and popliteal veins was performed. Grayscale with compression maneuvers of the right and left peroneal and posterior tibial veins was also performed. The right and left great and small saphenous veins were also imaged in grayscale with compression maneuvers at their insertion to the deep system. Images were obtained and stored in a permanent archive. MQ: [id number] COMPARISON: None RESULT: RIGHT LOWER EXTREMITY PROXIMAL DEEP VEINS Distal External Iliac and Common Femoral Veins: Compression: Abnormal Doppler: Abnormal, spontaneous flow with decreased respiratory phasicity. Femoral vein: Compression: Normal Doppler: Normal, spontaneous respirophasic flow. Popliteal vein: Compression: Normal Doppler: Normal, spontaneous respirophasic flow. CALF DEEP VEINS Peroneal veins: Poorly visualized. Posterior tibial veins: Poorly visualized. Gastrocnemius and Soleal veins: Not imaged. SUPERFICIAL VEINS Great saphenous: Patent and compressible at insertion into common femoral vein; not otherwise assessed. Small Saphenous: Patent and compressible in the proximal calf, not otherwise assessed. LEFT LOWER EXTREMITY PROXIMAL DEEP VEINS Distal External Iliac and Common Femoral Veins: Compression: Normal Doppler: Normal, spontaneous respirophasic flow. Normal response to augmentation. Femoral vein: Compression: Normal Doppler: Normal, spontaneous respirophasic flow. Normal response to augmentation. Popliteal vein: Compression: Normal Doppler: Normal, spontaneous respirophasic flow. Normal response to augmentation. CALF DEEP VEINS Peroneal veins: Normal compression. Posterior tibial veins: Normal compression. Gastrocnemius and Soleal veins: Not imaged. SUPERFICIAL VEINS Great saphenous: Patent and compressible at insertion into common femoral vein; not otherwise assessed. Small Saphenous: Patent and compressible in the proximal calf, not otherwise assessed. IMPRESSION: Positive study for acute proximal DVT in the distal right external iliac and common femoral veins. The thrombus is nonocclusive. Nondiagnostic study for calf DVT in the left and right lower extremities. Nondiagnostic study for acute superficial thrombophlebitis in the imaged segments of the left and right lower extremities. A wet reading for notification of Dr. Maciel was submitted to the file room on March 21, 2020 at 1:17 PM. Projector Booth Operator: LAKEISHA Transcribe Date/Time: Mar 21 2020 1:13P Dictated by : NAIN HINSON MD This examination was interpreted and the report reviewed and electronically signed by: NAIN HINSON MD on Mar 21 2020 1:18PM EST Normal [facility] Vitamin B12on 03-21-2020 Cobalamin (Vitamin B12) [Mass/Vol] 352 pg/mL Normal 232-1245 [facility] Comment on above: Result Comment: Nunu ents taking a biotin dose of up to 5 mg/day should refrain from taking biotin for 4 hours prior to sample collection. Patients taking a biotin dose of 5 to 10 mg/day should refrain from taking biotin for 8 hours prior to sample collection. Patients taking a biotin dose > 10 mg/day should consult with their physician or the laboratory prior to having a sample taken. Clinicians should consider biotin interference as a source of error, when clinically suspicious of the laboratory result. Performed By: #### G LMET #### [place] [address] CR-Shoulder min 2 Views IMPO RTon 03-20-2020 CR-Shoulder min 2 Views IMPORT Images were obtained outside of [facility] Normal [facility] CT-Abdomen without IV Contra st IMPORTon 03-20-2020 CT-Abdomen without IV Contrast IMPORT Images were obtained outside of [facility] Normal [facility] .GFRon 03-13-2020 GFR 38 ml/min/1.73sqm Normal [facility] ([place]) Comment on above: Result Comment: GFR Population mean for , Non- Americans Ages 20-29 = 116 mL/min/1.73 sq.m. Ages 30-39 = 107 mL/min/1.73 sq.m. Ages 40-49 = 99 mL/min/1.73 sq.m. Ages 50-59 = 93 mL/min/1.73 sq.m. Ages 60-69 = 85 mL/min/1.73 sq.m. Ages 70+ = 75 mL/min/1.73 sq.m. Chronic Kidney Disease: Less than 60 mL/min/1.73 square meters End Stage Renal Disease: Less than 15 mL/min/1.73 square meters Performed By: #### C HOWARD GALEANA, ANEU #### [facility] [address] [address] GFR Non- 31 ml/min/1.73sqm Normal [facility] ([place]) Comment on above: Result Comment: GFR Population mean for , Non- Americans Ages 20-29 = 116 mL/min/1.73 sq.m. Ages 30-39 = 107 mL/min/1.73 sq.m. Ages 40-49 = 99 mL/min/1.73 sq.m. Ages 50-59 = 93 mL/min/1.73 sq.m. Ages 60-69 = 85 mL/min/1.73 sq.m. Ages 70+ = 75 mL/min/1.73 sq.m. Chronic Kidney Disease: Less than 60 mL/min/1.73 square meters End Stage Renal Disease: Less than 15 mL/min/1.73 square meters Performed By: #### C HOWARD GALEANA, ANEU #### [facility] [address] [address] BMPon 03-13-2020 Calcium [Mass/Vol] 7.7 mg/dL Low 8.4-10.2 [facility] ([place]) Comment on above: Performed By: #### HOWARD TA, ANEU #### [address] [address] Chloride [Moles/Vol] 106 mmol/L Normal 98-107 [facility] ([place] Comment on above: Performed By: #### HOWARD TA, ANEU #### [address] [address] CO2 [Moles/Vol] 22 mmol/L Low 23-31 [facility] ([place]) Comment on above: Performed By: #### HOWARD TA, ANEU #### [address] [address] Creatinine [Mass/Vol] 1.63 mg/dL High 0.55-1.02 [facility] ([place]) Comment on above: Performed By: #### HOWARD TA, ANEU #### [address] [address] Electrolyte Balance 10.0 mEq/L Normal [facility] ([place]) Comment on above: Performed By: #### HOWARD TA, ANEU #### [address] [address] Glucose [Mass/Vol] 100 mg/dL Normal 83-110 [facility] ([place]) Comment on above: Performed By: #### HOWARD TA, ANEU #### [address] [address] Potassium [Moles/Vol] 4.2 mmol/L Normal 3.5-5.1 [facility] ([place]) Comment on above: Performed By: #### HOWARD TA, ANEU #### [address] [address] Sodium [Moles/Vol] 138 mmol/L Normal 136-145 [facility] ([place]) Comment on above: Performed By: #### HOWARD TA, ANEU #### [address] [address] Urea nitrogen [Mass/Vol] 11 mg/dL Normal 7-18 [facility] ([place]) Comment on above: Performed By: #### C HOWARD GALEANA, AARON #### [place] [place] [address] [place], [place] [address] Urea nitrogen/Creatinine [Mass ratio] 7 ratio Normal 7-27 [facility] ([place]) Comment on above: Performed By: #### HOWARD TA, ANEU #### [facility] [address] [address] .GFRon 03-03-2020 GFR 30 ml/min/1.73sqm Normal [facility] ([place]) Comment on above: Result Comment: GFR Population mean for , Non- Americans Ages 20-29 = 116 mL/min/1.73 sq.m. Ages 30-39 = 107 mL/min/1.73 sq.m. Ages 40-49 = 99 mL/min/1.73 sq.m. Ages 50-59 = 93 mL/min/1.73 sq.m. Ages 60-69 = 85 mL/min/1.73 sq.m. Ages 70+ = 75 mL/min/1.73 sq.m. Chronic Kidney Disease: Less than 60 mL/min/1.73 square meters End Stage Renal Disease: Less than 15 mL/min/1.73 square meters Performed By: #### HOWARD TA, AARON #### [place] [address] [address] GFR Non- 25 ml/min/1.73sqm Normal [facility] ([place]) Comment on above: Result Comment: GFR Population mean for , Non- Americans Ages 20-29 = 116 mL/min/1.73 sq.m. Ages 30-39 = 107 mL/min/1.73 sq.m. Ages 40-49 = 99 mL/min/1.73 sq.m. Ages 50-59 = 93 mL/min/1.73 sq.m. Ages 60-69 = 85 mL/min/1.73 sq.m. Ages 70+ = 75 mL/min/1.73 sq.m. Chronic Kidney Disease: Less than 60 mL/min/1.73 square meters End Stage Renal Disease: Less than 15 mL/min/1.73 square meters Performed By: #### HOWARD TA ANEU #### [address] [address] BMPon 03-03-2020 Calcium [Mass/Vol] 7.6 mg/dL Low 8.4-10.2 Formerly [facility], [facility] ([place] Comment on above: Performed By: #### HOWARD TA, ANEU #### [address] [address] Chloride [Moles/Vol] 107 mmol/L Normal 98-107 [facility] [place] Comment on above: Performed By: #### HOWARD TA ANEU #### [address] [address] CO2 [Moles/Vol] 22 mmol/L Low 23-31 [facility] ([place] Comment on above: Performed By: #### HOWARD TA ANEU #### [address] [address] Creatinine [Mass/Vol] 1.99 mg/dL High 0.55-1.02 [facility] ([place] Comment on above: Performed By: #### HOWARD TA ANEU #### [address] [address] Electrolyte Balance 10.0 mEq/L Normal Formerly [facility] ([place] Comment on above: Performed By: #### HOWARD TA, ANEU #### [address] [address] Glucose [Mass/Vol] 118 mg/dL High 83-110 Formerly [facility], [facility] ([place] Comment on above: Performed By: #### HOWARD TA, ANEU #### [address] [address] Potassium [Moles/Vol] 3.3 mmol/L Low 3.5-5.1 [facility] ([place] Comment on above: Performed By: #### HOWARD TA, ANEU #### [address], [place] [address] Sodium [Moles/Vol] 139 mmol/L Normal 136-145 Formerly [facility], [facility] ([place] Comment on above: Performed By: #### C HOWARD GALEANA ANEU #### [facility] [address] [place], [place] [address] Urea nitrogen [Mass/Vol] 16 mg/dL Normal 7-18 [facility] ([place] Comment on above: Performed By: #### HOWARD TA ANEU #### [address] [place] [address] [place], [place] [address] Urea nitrogen/Creatinine [Mass ratio] 8 ratio Normal 7-27 [facility] ([place] Comment on above: Performed By: #### C HOWARD GALEANA ANEU #### [address] [place] [address] [place], [place] [address] Final Surgical Pathology Rep [facility] 02-23-2020 Final Surgical Pathology Report . Pathology Reports Accession: Collected Date/Time: Received Date/Time: Pathologist: [id number] 02/21/2020 08:30 EDT 02/22/2020 09:05 EDT DO NAIN JASSO Final Surgical Pathology Report DIAGNOSIS: A) GASTRIC ANTRUM - MILD CHRONIC GASTRITIS. IMMUNOSTAINS FOR H. PYLORI ARE NEGATIVE. B) ESOPHAGUS - FRANNY ESOPHAGITIS. COMMENT: [facility] [id number] CLINICAL INFORMATION: Procedure: EGD WITH BIOPSIES Preoperative diagnosis: NAUSEA, VOMITING Postoperative diagnosis: SAME SPECIMEN: A GASTRIC ANTRUM BIOPSIES B ESOPHAGEAL BIOPSIES - STAIN FOR FUNGUS GROSS DESCRIPTION: A. Received in formalin, labeled with the patients name, Case #[id number], and gastric antrum biopsies 2 de guzman tissue fragments both measuring 0.4 cm. TS - 1. B. Received in formalin labeled esophagus biopsy multiple de guzman partially translucent tissue fragments ranging from less than 0.1 to 0.3 cm. TS -1. Dictated by DEVEN KIRK MICROSCOPIC DESCRIPTION: Slides reviewed. Electronically Signed by Pathology Report verified by [facility] Electronically signed by NAIN JASSO DO Sign out Date: 02/23/2020 14:43 Performing Lab: [facility], [address] [place] [id number] [place] [address] Normal [facility] ([place] Comment on above: Performed By: #### C BC, ADIFF, ANEU #### [place] [address] [place], [place] [address] Blood platelet adequacy dete ction by light microscopyon 02-14-2020 Platelets LM Ql (Bld) ADEQUATE ADEQ [facility] Laboratory - Chemistry and C hemistry - challengeon 02-14-2020 Free T4 [Mass/Vol] 0.97 ng/dL 0.76-1.46 [facility] Magnesium [Mass/Vol] 1.8 mg/dL 1.6-2.6 [facility] Macrocytes detectionon 02-13 Macrocytes Ql (Bld) RARE [facility] No Panel Informationon 02-13 Free Triiodothyronine (T3) pg/dL 1.5 pg/mL Low 2.18-3.98 [facility] Laboratory - Chemistry and C hemistry - challengeon 12-29-2019 Natriuretic peptide B (Bld) [Mass/Vol] 33.1 pg/mL 0-100 [facility] Serum or plasma iron saturat ion measurement (mass fraction)on 12-29-2019 Iron saturation [Mass fraction] 73.0 % 15.0-55.0 [facility] Work Phone: PROGRESSon 12-14-2019 PROGRESS HNO ID: [id number] Author: Shailesh Yin Service: ? Author Type: Physician Type: Progress Notes Filed: 12/14/2019 1:20 PM Note Text: ?? Formerly [facility], [facility]rological [facility] Kid[facility] UROLOGY LOCATION: VIRTUAL VISIT ESTABLISHED PATIENT Consent for this telehealth visit obtained from the patient prior to initiation of the encounter. The patient acknowledges the limitations of telehealth and agrees to proceed. The patient understands that this visit will be documented in the medical record as any other patient encounter. The patient is seen today through a virtual visit. This is done and lieu of an in person appointment due to COVID-19. This patient's virtual visit done by telephone only due to technical difficulties of either patient portal , physician portal, connectivity, webcam failure or other technical failure. PATIENT INFO: Letty Rivera Jonathanelodia 69 year old Chief Complaint: Bladder Cancer HPI S/P RARC with IIC on 10/13/19 She is doing well at this time but feels weak. She was admitted to [facility] for low potassium and low magnesium. This issue has been corrected. ? Her legs are swollen. I have spoken to her daughter on the telephone. At this time she is also depressed. 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 1-Duration: 2019 2-Location: bladder 3-Severity: N/A 4-Quality: Not applicable 5-Context: N/A 6-Timing: N/A 7-Modifying factors: No treatment prior to referral 8-Associated signs AND symptoms: no additional symptoms No question data found. PATHOLOGY: FINAL DIAGNOSIS: A) URETER, LEFT DISTAL, SEGMENTAL RESECTION - NEGATIVE FOR DYSPLASIA OR MALIGNANCY. B) URETER, RIGHT MARGIN, EXCISION - NEGATIVE FOR DYSPLASIA OR MALIGNANCY. C) LYMPH NODES, BILATERAL PELVIC, EXCISION - APPROXIMATELY 19 LYMPH NODES NEGATIVE FOR METASTATIC CARCINOMA. 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 ?TUMOR EXTENDS INTO LAMINA PROPRIA, MUSCULARIS PROPRIA AND PERIVESICULAR SOFT TISSUES WELL VAGINAL WALL. RESECTION MARGIN FOCALLY POSITIVE?(ANTERIOR WALL). ?LYMPHOVASCULAR INVASION PRESENT. ONE OF TWO LYMPH NODES POSITIVE FOR METASTATIC ADENOCARCINOMA. ?SEE COMMENT. COMMENT: ?Dr. Cb Draper reviewed entry level account representative slides from part D and agrees with the diagnosis. Urinary Bladder Cancer Case Summary Procedure: ? ?Anterior exenteration. Tumor site: Posterior, left wall, right wall, anterior wall, dome and ? trigone, right ureter. Tumor size: ? Greatest dimension: 6.5 cm. ? Additional dimensions: 6.2 x 2.3 cm. Histologic type: Urothelial carcinoma, invasive with focal ? micropapillary features. Histologic grade: ? High grade. Lymphovascular invasion: Present. Tumor extension: ? Tumor invades lamina propria, muscularis propria, deep ? ? ? muscularis propria (outer half), perivesical soft tissue ? ?macroscopically, and adjacent structures vagina. Margins: ? ?Involved by invasive carcinoma, soft tissue margin. Regional lymph nodes: ?Number involved: 1. ?Number examined: Approximately 21. Pathologic stage: ? pT4a pN1. OPERATIVE PROCEDURE: Robotic laparoscopic cystectomy w/intracorporeal ileal conduit urinary diversion, robotic laparoscopic surgical w/bilateral pelvic lymph node dissection, robotic anterior pelvic exenteration, ileal conduit CLINICAL INFORMATION: Bladder cancer (HCC) INTRAOPERATIVE CONSULTATION: FROZEN SECTION DIAGNOSIS A: ?Left distal ureteral margin: ?Negative for urothelial cell dysplasia or malignancy. (EAC) LAB: WBC (thou/cmm) Date Value 10/18/2019 12.67 (H) RBC (mil/cmm) Date Value 10/18/2019 2.76 (L) HGB (g/dL) Date Value 10/18/2019 8.8 (L) Hematocrit (%) Date Value 10/18/2019 28.8 (L) MCV (fl) Date Value 10/18/2019 104.3 (H) MCH (pg) Date Value 10/18/2019 31.9 MCHC (%) Date Value 10/18/2019 30.6 (L) Platelet Count (thou/cmm) Date Value 10/18/2019 256 MPV (fl) Date Value 10/18/2019 9.9 Creatinine Date Value Ref Range Status 10/18/2019 0.65 0.51 - 0.95 mg/dL Final Comment: Use of this assay is not recommended for patients undergoing treatment with phenindione, due to the potential for falsely depressed results. 10/17/2019 0.71 0.51 - 0.95 mg/dL Final Comment: Use of this assay is not recommended for patients undergoing treatment with phenindione, due to the potential for falsely depressed results. 10/16/2019 0.86 0.51 - 0.95 mg/dL Final Comment: Use of this assay is not recommended for patients undergoing treatment with phenindione, due to the potential for falsely depressed results. 10/15/2019 0.90 0.51 - 0.95 mg/dL Final Comment: Use of this assay is not recommended for patients undergoing treatment with phenindione, due to the potential for falsely depressed results. No results found for: PSA, PSAPER URINE POC No results found for this basename: uglucpoc,ubilipoc,uketo npoc,usgpoc,uhbpoc,uphp oc,upropoc,uuropoc,unit poc,uw bcpoc,ucolpoc,uclarpoc IMAGING: None No imaging to review. ALLERGIES: ALLERGIES Allergen Reactions - Ciprofloxacin Vomiting - Penicillin G Rash MEDICATIONS: PARoxetine (PAXIL) 20 mg tablet Take 1 tablet by mouth once daily. furosemide (LASIX) 20 mg tablet Take 1 tablet by mouth once daily. For 3 days to decrease fluid. Repeat in one month Miscellaneous Medical Supply [facility] Ileal conduit/urostomy supplies:1 box of Coloplast no-sting barrier film wipes (Ref #[id number]).1 box of Coloplast no-sting adhesive remover (Ref #[id number]).1 bottle of Coloplast stoma powder (Ref #[id number]).1 tube of Coloplast stoma paste (Ref #[id number]).1 box of Coloplast small rings (Ref #[id number]).2 boxes of Coloplast Red flex flat cut-to-fit (Ref #[id number]).1 box of Coloplast Red Urostomy clear pouches (Ref #[id number]).1 Box of Coloplast Brava Elastic barrier strips (ref#[id number]). enoxaparin (LOVENOX) 40 mg/0.4 mL Inject 0.4 mL subcutaneously every 24 hours. zolpidem (AMBIEN) 5 mg tablet Take 1 tablet by mouth at bedtime as needed for up to 5 days. for insomnia. imipramine HCl (TOFRANIL) 10 mg tablet Take 1 tablet by mouth daily at bedtime. ALBUTEROL INHALATION Inhale 1 Inhalation as instructed as needed. dextroamphetamine-amphe tamine (ADDERALL) 5 mg tablet Take 5 mg by mouth three times daily. 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 HEAD AND NECK: No blurred vision or Sjogren's syndrome CARDIOVASCULAR: NO CHEST PAIN, PALPITATIONS, ANKLE EDEMA RESPIRATORY: No chronic cough, wheezing, dyspnea, hemoptysis. MUSCULOSKELETAL: NO CHRONIC BACK PAIN, ARTHRITIS, CHRONIC NECK PAIN SKIN: NO VARICOSE VEINS, RASH, ABNORMAL ITCHING BLOOD/LYMPHATIC: No easy bleeding, easy bruising, transfusion Hx NEUROLOGICAL: NO HEADACHES, NUMBNESS, SEIZURES, STROKE PSYCHIATRIC: No depression or inordinate anxiety The remainder of the ROS was negative. PHYSICAL EXAMINATION VIRTUAL IMPRESSION/PLAN: T4 N1 Bladder cancer. S/P RARC with IIC. Doing well. Some weakness. Pathology reviewed with patient. We have discussed adjuvant radiation/chemotherapy. We will hold at this time so she can recover. ? Bilateral pitting edema - needs nephrology referral with Dr. Sagar Jack. F/U in 4 weeks. Shailesh Yin DO MBA Normal [facility] CNPN Telephone (DocumentCloud) LETTY MORENO ([id number]) 1950 F Date Time Provider Department 12/13/19 SHAILESH YIN During your visit today, we recorded the following information about you: Katelyn Ruthup [facility] 12/13/2019 4:14 PM Signed Letty Trevino called today. : 1950 Allergies: Ciprofloxacin; Penicillin G (home) [phone] (cell) Message can be left with: with patient only Reason for call: Patient daughter called stating pt has VV tomorrow 12/14/[address]. [address] Yin to be aware that patient has been in out of [facility] with Potassium issues, swelling on both leg and CHF. Daughter is concerned mother is not follow her physical therapy instructions, and not moving around enough and having constant vomiting and diarrhea Daughter will be their for VV, but has concerns mother will not tell the truth about how she is feeling, and wanted Dr. Yin to be aware Recent Urology Surgery: ROBOTIC LAPAROSCOPIC CYCTECTOMY W/INTRACORPEAL ILEAL CONDUIT URINARY DIVERSION Is the patient experiencing any pain related to this call? no Any nausea/vomitting? Both Nausea and Vomiting Voiding concerns: no problems w/ voiding. Patient last appointment: 11/17/2019 The patients preferred pharmacy has been captured for this encounter? yes Katelyn Urias CMA Allergies As of Date: 12/13/2019 Noted Allergy Reaction CIPROFLOXACIN 11/03/2019 11 - Vomiting PENICILLIN G 09/22/2019 2 - Rash Date Reviewed: 11/02/2019 Reviewed by: Shailesh Yin - Fully Assessed Reason for Visit: FYI-No Action Needed [265] Prescriptions as of 12/13/2019 Sig: PAROXETINE 20 MG TABLET Take 1 tablet by mouth once d* FUROSEMIDE 20 MG TABLET Take 1 tablet by mouth once d* MISCELLANEOUS MEDICAL SUPPLY * Ileal conduit/urostomy suppli* ENOXAPARIN 40 MG/0.4 ML SUBCU* Inject 0.4 mL subcutaneously * ZOLPIDEM 5 MG TABLET Take 1 tablet by mouth at bed* IMIPRAMINE 10 MG TABLET Take 1 tablet by mouth daily * ALBUTEROL INHALATION Inhale 1 Inhalation as instru* DEXTROAMPHETAMINE-AMPHE TAMINE* Take 5 mg by mouth three time* Problem List As Of Date 12/13/2019 Noted Resolved Bladder cancer (HCC) [C67.9] 10/13/2019 Obesity, Class II, BMI 35-39.9 [E66.9] 10/14/2019 Encounter Status:Closed by KATELYN URIAS CMA on 12/13/19 Normal [facility] B12on 12-10-2019 Cobalamin (Vitamin B12) [Mass/Vol] 301 pg/mL Normal 211-911 [facility] ([place]) Comment on above: Performed By: #### C LISSETT, HOWARD, AARON #### [address] [address] .GFRon 12-09-2019 GFR 44 ml/min/1.73sqm Normal [facility] ([place]) Comment on above: Result Comment: GFR Population mean for , Non- Americans Ages 20-29 = 116 mL/min/1.73 sq.m. Ages 30-39 = 107 mL/min/1.73 sq.m. Ages 40-49 = 99 mL/min/1.73 sq.m. Ages 50-59 = 93 mL/min/1.73 sq.m. Ages 60-69 = 85 mL/min/1.73 sq.m. Ages 70+ = 75 mL/min/1.73 sq.m. Chronic Kidney Disease: Less than 60 mL/min/1.73 square meters End Stage Renal Disease: Less than 15 mL/min/1.73 square meters Performed By: #### HOWARD TA, ANEU #### [address] [address] GFR Non- 36 ml/min/1.73sqm Normal [facility] ([place]) Comment on above: Result Comment: GFR Population mean for , Non- Americans Ages 20-29 = 116 mL/min/1.73 sq.m. Ages 30-39 = 107 mL/min/1.73 sq.m. Ages 40-49 = 99 mL/min/1.73 sq.m. Ages 50-59 = 93 mL/min/1.73 sq.m. Ages 60-69 = 85 mL/min/1.73 sq.m. Ages 70+ = 75 mL/min/1.73 sq.m. Chronic Kidney Disease: Less than 60 mL/min/1.73 square meters End Stage Renal Disease: Less than 15 mL/min/1.73 square meters Performed By: #### HOWARD TA ANEU #### [address] [address] BMPon 12-09-2019 Calcium [Mass/Vol] 7.6 mg/dL Low 8.4-10.2 Formerly [facility], [facility] ([place]) Comment on above: Order Comment: Hemol yzed - please redraw Performed By: #### HOWARD TA, ANEU #### [address] [address] Chloride [Moles/Vol] 110 mmol/L High 98-107 [facility] [place] Comment on above: Order Comment: Hemol yzed - please redraw Performed By: #### HOWARD TA, ANEU #### [address] [address] CO2 [Moles/Vol] 25 mmol/L Normal 23-31 [facility] ([place] Comment on above: Order Comment: Hemol yzed - please redraw Performed By: #### C BC, ADIFF, ANEU #### [address] [address] Creatinine [Mass/Vol] 1.43 mg/dL High 0.55-1.02 [facility] ([place] Comment on above: Order Comment: Hemol yzed - please redraw Performed By: #### C BC, ADIFF, ANEU #### [address] [address] Electrolyte Balance 7.0 mEq/L Normal Formerly [facility] ([place] Comment on above: Order Comment: Hemol yzed - please redraw Performed By: #### C BC, ADIFF, ANEU #### [address] [address] Glucose [Mass/Vol] 110 mg/dL Normal 83-110 [facility] ([place] Comment on above: Order Comment: Hemol yzed - please redraw Performed By: #### C BC, ADIFF, ANEU #### [address] [address] Potassium [Moles/Vol] 3.3 mmol/L Low 3.5-5.1 [facility] ([place] Comment on above: Order Comment: Hemol yzed - please redraw Performed By: #### C BC, ADIFF, ANEU #### [address] [address] Sodium [Moles/Vol] 142 mmol/L Normal 136-145 [facility] ([place] Comment on above: Order Comment: Hemol yzed - please redraw Performed By: #### C BC, ADIFF, ANEU #### [address] [address] Urea nitrogen [Mass/Vol] 11 mg/dL Normal 7-18 [facility] ([place] Comment on above: Order Comment: Hemol yzed - please redraw Performed By: #### C BC, ADIFF, ANEU #### [address] [address] Urea nitrogen/Creatinine [Mass ratio] 8 ratio Normal 7-27 [facility] ([place] Comment on above: Order Comment: Hemol yzed - please redraw Performed By: #### C BC, ADIFF, ANEU #### [address] [address] MGon 12-09-2019 Magnesium [Mass/Vol] 2.2 mg/dL Normal 1.8-2.4 [facility] [place] Comment on above: Performed By: #### C BC, ADIFF, ANEU #### [place] [address] TSHon 12-09-2019 TSH Qn 1.18 mcIU/mL Normal 0.36-3.74 [facility] ([place]) Comment on above: Performed By: #### C BC, ADIFF, ANEU #### [place] [address] .Auto Diffon 12-08-2019 Ammonia (P) [Mass/Vol] 0.50 10 3/mcL Normal 0.15-1.00 [facility] ([place] Comment on above: Performed By: #### C BC, ADIFF, ANEU, BMP, MG, GFR, TROP ####[place] [address]#### PBNP ####[address] [address] Basophils (Bld) [#/Vol] 0.10 10 3/mcL Normal 0.00-0.19 [facility] ([place] Comment on above: Performed By: #### C BC, ADIFF, ANEU, BMP, MG, GFR, TROP ####[place] [address]#### PBNP ####[address] [address] Basophils/100 WBC (Bld) 0.8 % Normal 0.0-2.5 A [facility] ([place]) Comment on above: Performed By: #### C BC, ADIFF, ANEU, BMP, MG, GFR, TROP ####[place] [address]#### PBNP ####[address] [address] Eosinophils (Bld) [#/Vol] 0.10 10 3/mcL Normal 0.00-0.40 [facility] ([place]) Comment on above: Performed By: #### C BC, ADIFF, ANEU, BMP, MG, GFR, TROP ####[place] [address]#### PBNP ####[address] [address] Eosinophils/100 WBC (Bld) 1.4 % Normal 0.0-7.0 [facility] ([place]) Comment on above: Performed By: #### C BC, ADIFF, ANEU, BMP, MG, GFR, TROP ####[place] [address]#### PBNP ####[address] [address] Lymphocytes (Bld) [#/Vol] 2.00 10 3/mcL Normal 0.77-3.85 [facility] ([place]) Comment on above: Performed By: #### C BC, ADIFF, ANEU, BMP, MG, GFR, TROP ####[place] [address]#### PBNP ####[address] [address] Lymphocytes/100 WBC (Bld) 30.0 % Normal 10.0-50.0 [facility] ([place]) Comment on above: Performed By: #### C BC, ADIFF, ANEU, BMP, MG, GFR, TROP ####[place] [address]#### PBNP ####[address] [address] Monocytes/100 WBC (Bld) 6.6 % Normal 1.7-13.0 A [facility] ([place]) Comment on above: Performed By: #### C BC, ADIFF, ANEU, BMP, MG, GFR, TROP ####[address] [address]#### PBNP ####[address] [address] Neutrophils/100 WBC (Bld) 61.2 % Normal 37.0-80.0 [facility] ([place] Comment on above: Performed By: #### C BC, ADIFF, ANEU, BMP, MG, GFR, TROP ####[address] [address]#### PBNP ####[address] [address] Ammonia (P) [Mass/Vol] 0.40 10 3/mcL Normal 0.15-1.00 [facility] ([place]) Comment on above: Performed By: #### G FR, LIP, CMP #### [address] [address] Basophils (Bld) [#/Vol] 0.10 10 3/mcL Normal 0.00-0.19 [facility] ([place]) Comment on above: Performed By: #### G FR, LIP, CMP #### [address] [address] Basophils/100 WBC (Bld) 0.9 % Normal 0.0-2.5 A [facility] ([place]) Comment on above: Performed By: #### G FR, LIP, CMP #### [address] [address] Eosinophils (Bld) [#/Vol] 0.10 10 3/mcL Normal 0.00-0.40 [facility] ([place]) Comment on above: Performed By: #### G FR, LIP, CMP #### [address] [address] Eosinophils/100 WBC (Bld) 1.6 % Normal 0.0-7.0 [facility] ([place]) Comment on above: Performed By: #### G FR, LIP, CMP #### [address] [address] Lymphocytes (Bld) [#/Vol] 2.30 10 3/mcL Normal 0.77-3.85 [facility] ([place] Comment on above: Performed By: #### SONIYA MCFARLANE, CMP #### [address] [address] Lymphocytes/100 WBC (Bld) 38.0 % Normal 10.0-50.0 [facility] ([place] Comment on above: Performed By: #### G FR LIP, CMP #### [address] [address] Monocytes/100 WBC (Bld) 5.9 % Normal 1.7-13.0 A [facility] ([place]) Comment on above: Performed By: #### SONIYA MCFARLANE, CMP #### [address] [address] Neutrophils/100 WBC (Bld) 53.6 % Normal 37.0-80.0 [facility] ([place] Comment on above: Performed By: #### SONIYA MCFARLANE, CMP #### [address] [address] .GFRon 12-08-2019 GFR 43 ml/min/1.73sqm Normal [facility] ([place] Comment on above: Result Comment: GFR Population mean for , Non- Americans Ages 20-29 = 116 mL/min/1.73 sq.m. Ages 30-39 = 107 mL/min/1.73 sq.m. Ages 40-49 = 99 mL/min/1.73 sq.m. Ages 50-59 = 93 mL/min/1.73 sq.m. Ages 60-69 = 85 mL/min/1.73 sq.m. Ages 70+ = 75 mL/min/1.73 sq.m. Chronic Kidney Disease: Less than 60 mL/min/1.73 square meters End Stage Renal Disease: Less than 15 mL/min/1.73 square meters Performed By: #### C BC, ADIFF, ANEU, BMP, MG, GFR, TROP ####[address] [place], [place] [address]#### PBNP ####[place] [address] GFR Non- 35 ml/min/1.73sqm Normal [facility] ([place] Comment on above: Result Comment: GFR Population mean for , Non- Americans Ages 20-29 = 116 mL/min/1.73 sq.m. Ages 30-39 = 107 mL/min/1.73 sq.m. Ages 40-49 = 99 mL/min/1.73 sq.m. Ages 50-59 = 93 mL/min/1.73 sq.m. Ages 60-69 = 85 mL/min/1.73 sq.m. Ages 70+ = 75 mL/min/1.73 sq.m. Chronic Kidney Disease: Less than 60 mL/min/1.73 square meters End Stage Renal Disease: Less than 15 mL/min/1.73 square meters Performed By: #### C BC, ADIFF, ANEU, BMP, MG, GFR, TROP ####[address] [place], [place] [address]#### PBNP ####[place] [address] GFR 40 ml/min/1.73sqm Normal [facility] ([place] Comment on above: Result Comment: GFR Population mean for , Non- Americans Ages 20-29 = 116 mL/min/1.73 sq.m. Ages 30-39 = 107 mL/min/1.73 sq.m. Ages 40-49 = 99 mL/min/1.73 sq.m. Ages 50-59 = 93 mL/min/1.73 sq.m. Ages 60-69 = 85 mL/min/1.73 sq.m. Ages 70+ = 75 mL/min/1.73 sq.m. Chronic Kidney Disease: Less than 60 mL/min/1.73 square meters End Stage Renal Disease: Less than 15 mL/min/1.73 square meters Performed By: #### C BC, ADIFF, ANEU, BMP, MG, GFR ####[address] [place], [place] [address] GFR Non- 33 ml/min/1.73sqm Normal [facility] ([place] Comment on above: Result Comment: GFR Population mean for , Non- Americans Ages 20-29 = 116 mL/min/1.73 sq.m. Ages 30-39 = 107 mL/min/1.73 sq.m. Ages 40-49 = 99 mL/min/1.73 sq.m. Ages 50-59 = 93 mL/min/1.73 sq.m. Ages 60-69 = 85 mL/min/1.73 sq.m. Ages 70+ = 75 mL/min/1.73 sq.m. Chronic Kidney Disease: Less than 60 mL/min/1.73 square meters End Stage Renal Disease: Less than 15 mL/min/1.73 square meters Performed By: #### C BC, ADIFF, ANEU, BMP, MG, GFR ####[address] [id number] .NEUABSon 12-08-2019 Neutrophils (Bld) [#/Vol] 4.20 10 3/mcL Normal 2.85-6.16 [facility] ([place] Comment on above: Performed By: #### C BC, ADIFF, ANEU, BMP, MG, GFR, TROP ####[place] [address]#### PBNP ####[place] [address] Neutrophils (Bld) [#/Vol] 3.30 10 3/mcL Normal 2.85-6.16 [facility] ([place]) Comment on above: Performed By: #### G FR, LIP, CMP #### [address] [address] BMPon 12-08-2019 Calcium [Mass/Vol] 7.6 mg/dL Low 8.4-10.2 [facility] ([place]) Comment on above: Performed By: #### C BC, ADIFF, ANEU, BMP, MG, GFR, TROP ####[place] [address]#### PBNP ####[address] [address] Chloride [Moles/Vol] 106 mmol/L Normal 98-107 [facility] ([place] Comment on above: Performed By: #### C BC, ADIFF, ANEU, BMP, MG, GFR, TROP ####[place] [address]#### PBNP ####[address] [address] CO2 [Moles/Vol] 24 mmol/L Normal 23-31 [facility] ([place] Comment on above: Performed By: #### C BC, ADIFF, ANEU, BMP, MG, GFR, TROP ####[place] [address]#### PBNP ####[address] [address] Creatinine [Mass/Vol] 1.47 mg/dL High 0.55-1.02 [facility] ([place]) Comment on above: Performed By: #### C BC, ADIFF, ANEU, BMP, MG, GFR, TROP ####[place] [address]#### PBNP ####[address] [address] Electrolyte Balance 10.0 mEq/L Normal [facility] ([place] Comment on above: Performed By: #### C BC, ADIFF, ANEU, BMP, MG, GFR, TROP ####[place] [address]#### PBNP ####[address] [address] Glucose [Mass/Vol] 104 mg/dL Normal 83-110 [facility] ([place] Comment on above: Performed By: #### C BC, ADIFF, ANEU, BMP, MG, GFR, TROP ####[place] [address]#### PBNP ####[address] [address] Potassium [Moles/Vol] 2.6 mmol/L Critically abnormal 3.5-5.1 [facility] ([place] Comment on above: Performed By: #### C BC, ADIFF, ANEU, BMP, MG, GFR, TROP ####[address] [address]#### PBNP ####[address] [address] Sodium [Moles/Vol] 140 mmol/L Normal 136-145 [facility] ([place] Comment on above: Performed By: #### C BC, ADIFF, ANEU, BMP, MG, GFR, TROP ####[place] [address]#### PBNP ####[address] [address] Urea nitrogen [Mass/Vol] 12 mg/dL Normal 7-18 [facility] ([place] Comment on above: Performed By: #### C BC, ADIFF, ANEU, BMP, MG, GFR, TROP ####[place] [address]#### PBNP ####[address] [address] Urea nitrogen/Creatinine [Mass ratio] 8 ratio Normal 7-27 [facility] ([place] Comment on above: Performed By: #### C BC, ADIFF, ANEU, BMP, MG, GFR, TROP ####[address] [address]#### PBNP ####[address] [address] Calcium [Mass/Vol] 7.5 mg/dL Low 8.4-10.2 [facility] ([place] Comment on above: Performed By: #### C BC, ADIFF, ANEU, BMP, MG, GFR ####[address] [address] Chloride [Moles/Vol] 106 mmol/L Normal 98-107 [facility] ([place] Comment on above: Performed By: #### C BC, ADIFF, ANEU, BMP, MG, GFR ####[facility] [place], [place] [address] CO2 [Moles/Vol] 26 mmol/L Normal 23-31 [facility] ([place] Comment on above: Performed By: #### C BC, ADIFF, ANEU, BMP, MG, GFR ####[address] [place] [place], [place] [address] Creatinine [Mass/Vol] 1.54 mg/dL High 0.55-1.02 [facility] ([place] Comment on above: Performed By: #### C BC, ADIFF, ANEU, BMP, MG, GFR ####[address] [place] [place], [place] [address] Electrolyte Balance 6.0 mEq/L Normal [facility] ([place] Comment on above: Performed By: #### C BC, ADIFF, ANEU, BMP, MG, GFR ####[address] [place] [place], [place] [address] Glucose [Mass/Vol] 87 mg/dL Normal 83-110 [facility] ([place] Comment on above: Performed By: #### C BC, ADIFF, ANEU, BMP, MG, GFR ####[address] [place] [place], [place] [address] Potassium [Moles/Vol] 2.2 mmol/L Critically abnormal 3.5-5.1 [facility] ([place] Comment on above: Performed By: #### C BC, ADIFF, ANEU, BMP, MG, GFR ####[address] [place] [place], [place] [address] Sodium [Moles/Vol] 138 mmol/L Normal 136-145 [facility] ([place] Comment on above: Performed By: #### C BC, ADIFF, ANEU, BMP, MG, GFR ####[address] [address] [place], [place] [address] Urea nitrogen [Mass/Vol] 12 mg/dL Normal 7-18 [facility] ([place] Comment on above: Performed By: #### C BC, ADIFF, ANEU, BMP, MG, GFR ####[address] [address] [place], [place] [address] Urea nitrogen/Creatinine [Mass ratio] 8 ratio Normal 7-27 [facility] ([place] Comment on above: Performed By: #### C BC, ADIFF, ANEU, BMP, MG, GFR ####[place] [address] CBCon 12-08-2019 Erythrocyte distribution width (RBC) [Ratio] 16.4 % High 11.5-14.5 [facility] ([place] Comment on above: Performed By: #### C BC, ADIFF, ANEU, BMP, MG, GFR, TROP ####[place] [address]#### PBNP ####[place] [address] Hematocrit (Bld) [Volume fraction] 27.0 % Low 37.0-47.0 [facility] ([place] Comment on above: Performed By: #### C BC, ADIFF, ANEU, BMP, MG, GFR, TROP ####[place] [address]#### PBNP ####[place] [address] Hemoglobin (Bld) [Mass/Vol] 9.1 G/dL Low 12.0-16.0 [facility] ([place] Comment on above: Performed By: #### C BC, ADIFF, ANEU, BMP, MG, GFR, TROP ####[place] [address]#### PBNP ####[place] [address] MCH (RBC) [Entitic mass] 34.3 pg High 27.0-31.2 [facility] ([place] Comment on above: Performed By: #### C BC, ADIFF, ANEU, BMP, MG, GFR, TROP ####[place] [address]#### PBNP ####[place] [address] MCHC (RBC) [Mass/Vol] 33.7 G/dL Normal 33.0-37.0 [facility] ([place] Comment on above: Performed By: #### C BC, ADIFF, ANEU, BMP, MG, GFR, TROP ####[place] [address]#### PBNP ####[address] [address] MCV (RBC) [Entitic vol] 101.7 fL High 80.0-94.0 [facility] ([place] Comment on above: Performed By: #### C BC, ADIFF, ANEU, BMP, MG, GFR, TROP ####[place] [address]#### PBNP ####[address] [address] Platelet mean volume (Bld) [Entitic vol] 8.3 fL Normal 7.4-10.4 [facility] ([place] Comment on above: Performed By: #### C BC, ADIFF, ANEU, BMP, MG, GFR, TROP ####[place] [address]#### PBNP ####[address] [address] Platelets (Bld) [#/Vol] 154 10 3/mcL Normal 130-400 [facility] ([place] Comment on above: Performed By: #### C BC, ADIFF, ANEU, BMP, MG, GFR, TROP ####[place] [address]#### PBNP ####[address] [address] RBC (Bld) [#/Vol] 2.65 10 6/mcL Low 4.20-5.40 [facility] ([place] Comment on above: Performed By: #### C BC, ADIFF, ANEU, BMP, MG, GFR, TROP ####[place] [address]#### PBNP ####[address] [address] WBC (Bld) [#/Vol] 6.80 10 3/mcL Normal 4.60-10.80 [facility] ([place] Comment on above: Performed By: #### C BC, ADIFF, ANEU, BMP, MG, GFR, TROP ####[address] [place], [place] [address]#### PBNP ####[place] [address] Erythrocyte distribution width (RBC) [Ratio] 16.2 % High 11.5-14.5 [facility] ([place] Comment on above: Performed By: #### G FR, LIP, CMP #### [place] [address] Hematocrit (Bld) [Volume fraction] 24.8 % Low 37.0-47.0 [facility] ([place] Comment on above: Performed By: #### G FR, LIP, CMP #### [place] [address] Hemoglobin (Bld) [Mass/Vol] 8.4 G/dL Low 12.0-16.0 [facility] ([place] Comment on above: Performed By: #### G FR, LIP, CMP #### [place] [address] MCH (RBC) [Entitic mass] 34.4 pg High 27.0-31.2 [facility] ([place] Comment on above: Performed By: #### G FR, LIP, CMP #### [place] [id number] MCHC (RBC) [Mass/Vol] 34.0 G/dL Normal 33.0-37.0 [facility] ([place] Comment on above: Performed By: #### G FR, LIP, CMP #### [place] [id number] MCV (RBC) [Entitic vol] 101.3 fL High 80.0-94.0 [facility] ([place] Comment on above: Performed By: #### G FR, LIP, CMP #### [place] [id number] Platelet mean volume (Bld) [Entitic vol] 8.4 fL Normal 7.4-10.4 [facility] ([place] Comment on above: Performed By: #### G FR, LIP, CMP #### [address] [address] Platelets (Bld) [#/Vol] 135 10 3/mcL Normal 130-400 [facility] ([place] Comment on above: Performed By: #### G FR, LIP, CMP #### [address] [address] RBC (Bld) [#/Vol] 2.45 10 6/mcL Low 4.20-5.40 [facility] ([place] Comment on above: Performed By: #### G FR, LIP, CMP #### [address] [address] WBC (Bld) [#/Vol] 6.10 10 3/mcL Normal 4.60-10.80 [facility] ([place] Comment on above: Performed By: #### G FR, LIP, CMP #### [address] [address] MGon 12-08-2019 Magnesium [Mass/Vol] 1.4 mg/dL Low 1.8-2.4 [facility] ([place] Comment on above: Performed By: #### C BC, ADIFF, ANEU, BMP, MG, GFR, TROP ###[place] [place] [place], [place] [address]#### PBNP ####[address] [address] Magnesium [Mass/Vol] 1.3 mg/dL Low 1.8-2.4 [facility] ([place] Comment on above: Performed By: #### C BC, ADIFF, ANEU, BMP, MG, GFR ####[place] [place], [place] [address] PBNPon 12-08-2019 Natriuretic peptide B (Bld) [Mass/Vol] 998 pg/mL High 0-125 [facility] ([place] Comment on above: Result Comment: NT-p roBNP results of less than 300 pg/mL effectively rules out acute congestive heart failure with 99% negative predictive value. Performed By: #### C BC, ADIFF, ANEU #### [place] [address] [place], [place] [address] TROPon 12-08-2019 Troponin I.cardiac [Mass/Vol] 0.023 ng/mL Normal 0.000-0.040 [facility] ([place] Comment on above: Result Comment: Trop onin I reference range: 0.00-0.040 ng/mL Negative and non-diagnostic. >0.040 ng/mL Consistent with cardiac damage, increased clinical risk and possibility of myocardial infarction. Serial measurements, a rise & fall in test results, clinical history, appropriate symptoms and/or ECG changes may help assess possibility of NM. *Other non-acute coronary syndrome conditions such as CHF, myocarditis, pulmonary emboli, sepsis and cardiac surgery could result in myocardial damage and increased troponin levels. Performed By: #### C HOWARD GALEANA ANEU, BMP, MG, GFR, TROP ####[address] [place], [place] [address]#### PBNP ####[place] [address] No Panel Informationon 11-22 Miscellaneous Test [facility]: TEST RESULT UNITS RE F [id number] High pg/mL 0 - 301Please Note:The following cut-points have been suggested for theuse of proBNP for the diagnostic evaluation of heartfailure (HF) in patients with acute dyspnea:Modality Age Optimal Cut(years) [place] gnosis (rule in HF) <50 450 pg/mL 50 - 75 900 pg/mL >75 1800 pg/mLExclusion (rule out HF) Age independent 300 pg/mL TESTING PERFORMED AT [facility]. ORIGINAL REPORT ON FILE IN LAB CONTAINS ADDITIONAL TEST SITE INFORMATION. CNPNon 11-17-2019 CNPPilar Telephone (AKURFL) LETTY MORENO ([id number]) 1950 F Date Time Provider Department 11/17/19 SAHILESH YIN During your visit today, we recorded the following information about you: Elsi Frank [facility] 11/17/2019 10:16 AM Signed office sent a request asking for approval to start baby aspirin daily please advise and call office or fax back Paper on your desk Shailesh Yin DO, RASHAWN 11/22/2019 11:44 AM Signed Baby asa ok thanks Elsi Frank [facility] 11/22/2019 12:00 PM Signed LM for office to call us to inform of Dr garza answer that patient may take baby aspirin Aminata Harris [facility] 11/22/2019 2:[address] Echevarria's office informed. Aminata Harris [facility] Allergies As of Date: 11/17/2019 Noted Allergy Reaction CIPROFLOXACIN 11/03/2019 11 - Vomiting PENICILLIN G 09/22/2019 2 - Rash Date Reviewed: 11/02/2019 Reviewed by: Shailesh Yin - Fully Assessed Reason for Visit: Urgent [1695] Prescriptions as of 11/17/2019 Sig: PAROXETINE 20 MG TABLET Take 1 tablet by mouth once d* FUROSEMIDE 20 MG TABLET Take 1 tablet by mouth once d* DOCUSATE SODIUM 100 MG CAPSULE Take 1 capsule by mouth twice* MISCELLANEOUS MEDICAL SUPPLY * Ileal conduit/urostomy suppli* ENOXAPARIN 40 MG/0.4 ML SUBCU* Inject 0.4 mL subcutaneously * IMIPRAMINE 10 MG TABLET Take 1 tablet by mouth daily * ALBUTEROL INHALATION Inhale 1 Inhalation as instru* DEXTROAMPHETAMINE-AMPHE TAMINE* Take 5 mg by mouth three time* Problem List As Of Date 11/17/2019 Noted Resolved Bladder cancer (HCC) [C67.9] 10/13/2019 Obesity, Class II, BMI 35-39.9 [E66.9] 10/14/2019 Encounter Status:Closed by SHAILESH YIN on 11/22/19 [facility] CURon 11-12-2019 CUR . MICRO - Microbiology PROCEDURE: Urine Culture [*1] SOURCE: Urine, Clean Catch BODY SITE: COLLECTED DATE/TIME: 11/10/2019 12:46 EDT RECEIVED DATE/TIME: 11/10/2019 19:45 EDT START DATE/TIME: 11/10/2019 19:46 EDT FREE TEXT SOURCE: FINAL REPORTS Final Report [] Verified Date/Time/Personnel: 11/12/2019 13:12 EDT >100,000 organisms per mL Staphylococcus aureus PRELIMINARY REPORTS Preliminary Report [] Verified Date/Time/Personnel: 11/11/2019 11:33 EDT >100,000 organisms per mL Staphylococcus aureus SARANYA to follow SUSCEPTIBILITY RESULTS Staphylococcus aureus Antibiotic SARANYA Dilutn SARANYA Interp Nitrofurantoin <=32 Susceptible Oxacillin <=0.25 Susceptible Penicillin <=0.03 Susceptible Trimethoprim/ <=0.5/9.5 Susceptible Sulfa Vancomycin 1 Susceptible Performing Locations *1: This test was performed at: [address], [address] [place] [address] ([place]) Comment on above: Performed By: #### G SONIYA FIGUEROA, CMP #### [place] [address] .Auto Diffon 11-10-2019 Ammonia (P) [Mass/Vol] 0.40 10 3/mcL Normal 0.15-1.00 [facility] ([place]) Comment on above: Performed By: #### G , SONIYA, CMP #### [place] [address] Basophils (Bld) [#/Vol] 0.00 10 3/mcL Normal 0.00-0.19 [facility] ([place]) Comment on above: Performed By: #### G FR LIP, CMP #### [address] [address] Basophils/100 WBC (Bld) 0.4 % Normal 0.0-2.5 [facility] ([place]) Comment on above: Performed By: #### Sonia FR, LIP, CMP #### [address] [address] Eosinophils (Bld) [#/Vol] 0.10 10 3/mcL Normal 0.00-0.40 [facility] ([place]) Comment on above: Performed By: #### Sonia FR LIP, CMP #### [address] [address] Eosinophils/100 WBC (Bld) 0.8 % Normal 0.0-7.0 [facility] ([place]) Comment on above: Performed By: #### Sonia FR LIP, CMP #### [address] [address] Lymphocytes (Bld) [#/Vol] 2.40 10 3/mcL Normal 0.77-3.85 [facility] ([place]) Comment on above: Performed By: #### G FR LIP, CMP #### [address] [address] Lymphocytes/100 WBC (Bld) 25.1 % Normal 10.0-50.0 [facility] ([place] Comment on above: Performed By: #### G FR, LIP, CMP #### [address] [address] Monocytes/100 WBC (Bld) 4.1 % Normal 1.7-13.0 [facility] ([place]) Comment on above: Performed By: #### G FR, LIP, CMP #### [address] [address] Neutrophils/100 WBC (Bld) 69.6 % Normal 37.0-80.0 [facility] ([place]) Comment on above: Performed By: #### G FR, LIP, CMP #### [address] [address] .GFRon 11-10-2019 GFR 73 ml/min/1.73sqm Normal [facility] ([place] Comment on above: Result Comment: GFR Population mean for , Non- Americans Ages 20-29 = 116 mL/min/1.73 sq.m. Ages 30-39 = 107 mL/min/1.73 sq.m. Ages 40-49 = 99 mL/min/1.73 sq.m. Ages 50-59 = 93 mL/min/1.73 sq.m. Ages 60-69 = 85 mL/min/1.73 sq.m. Ages 70+ = 75 mL/min/1.73 sq.m. Chronic Kidney Disease: Less than 60 mL/min/1.73 square meters End Stage Renal Disease: Less than 15 mL/min/1.73 square meters Performed By: #### G FR, LIP, CMP #### [place] [address] GFR Non- 60 ml/min/1.73sqm Normal [facility] ([place] Comment on above: Result Comment: GFR Population mean for , Non- Americans Ages 20-29 = 116 mL/min/1.73 sq.m. Ages 30-39 = 107 mL/min/1.73 sq.m. Ages 40-49 = 99 mL/min/1.73 sq.m. Ages 50-59 = 93 mL/min/1.73 sq.m. Ages 60-69 = 85 mL/min/1.73 sq.m. Ages 70+ = 75 mL/min/1.73 sq.m. Chronic Kidney Disease: Less than 60 mL/min/1.73 square meters End Stage Renal Disease: Less than 15 mL/min/1.73 square meters Performed By: #### G FR, LIP, CMP #### [address] [address] .Morphon 11-10-2019 Anisocytosis Ql (Bld) Slight Normal [facility] ([place] Comment on above: Performed By: #### G FR, LIP, CMP #### [address] [address] Macrocytosis Slight Normal [facility] ([place] Comment on above: Performed By: #### G FR, LIP, CMP #### [place] [address] Platelets (Bld) [#/Vol] Normal Normal [facility] ([place] Comment on above: Performed By: #### G FR, LIP, CMP #### [place] [address] .NEUABSon 11-10-2019 Neutrophils (Bld) [#/Vol] 6.70 10 3/mcL High 2.85-6.16 [facility] ([place] Comment on above: Performed By: #### G FR, LIP, CMP #### [place] [address] .Urinalysis Microscopic (AO) on 11-10-2019 RBC (U) [#/Vol] LOADED Abnormal None Seen [facility] ([place] Comment on above: Performed By: #### G FR, LIP, CMP #### [place] [address] UA Bacteria 3+ /hpf Abnormal [facility] ([place] Comment on above: Performed By: #### G FR, LIP, CMP #### [place] [address] UA Squam Epithelial 0-5 Abnormal None Seen [facility] ([place] Comment on above: Performed By: #### G FR, LIP, CMP #### [place] [address] UA WBC LOADED Abnormal None Seen [facility] ([place] Comment on above: Performed By: #### G FR, LIP, CMP #### [place] [address] CBCon 11-10-2019 Erythrocyte distribution width (RBC) [Ratio] 16.3 % High 11.5-14.5 [facility] ([place] Comment on above: Performed By: #### G FR, LIP, CMP #### [place] [address] Hematocrit (Bld) [Volume fraction] 29.3 % Low 37.0-47.0 [facility] ([place] Comment on above: Performed By: #### SONIYA MCFARLANE, CMP #### [place] [id number] Hemoglobin (Bld) [Mass/Vol] 9.6 G/dL Low 12.0-16.0 [facility] ([place] Comment on above: Performed By: #### Sonia FIGUEROA LIP, CMP #### [address] [address] MCH (RBC) [Entitic mass] 33.1 pg High 27.0-31.2 [facility] ([place] Comment on above: Performed By: #### SONIYA MCFARLANE, CMP #### [address] [address] MCHC (RBC) [Mass/Vol] 32.8 G/dL Low 33.0-37.0 [facility] ([place] Comment on above: Performed By: #### SONIYA MCFARLANE, CMP #### [place] [id number] MCV (RBC) [Entitic vol] 100.7 fL High 80.0-94.0 [facility] ([place] Comment on above: Performed By: #### SONIYA MCFARLANE, CMP #### [address] [address] Platelet mean volume (Bld) [Entitic vol] 7.4 fL Normal 7.4-10.4 [facility] ([place] Comment on above: Performed By: #### Sonia FIGUEROA LIP, CMP #### [address] [address] Platelets (Bld) [#/Vol] 236 10 3/mcL Normal 130-400 [facility] ([place] Comment on above: Performed By: #### Sonia FIGUEROA LIP, CMP #### [address] [address] RBC (Bld) [#/Vol] 2.91 10 6/mcL Low 4.20-5.40 [facility] [place] Comment on above: Performed By: #### Sonia FIGUEROA LIP, CMP #### [place] [address] WBC (Bld) [#/Vol] 9.60 10 3/mcL Normal 4.60-10.80 [facility] [place] Comment on above: Performed By: #### G FR, LIP, CMP #### [place] [address] CMPon 11-10-2019 Albumin [Mass/Vol] 1.1 G/dL Low 3.4-4.8 [facility] ([place] Comment on above: Performed By: #### G FR, LIP, CMP #### [place] [address] Albumin/Globulin [Mass ratio] 0.3 {ratio} Low 1.1-2.5 [facility] ([place] Comment on above: Performed By: #### G FR, LIP, CMP #### [place] [address] ALP [Catalytic activity/Vol] 163 U/L High 40-135 [facility] ([place] Comment on above: Performed By: #### G FR, LIP, CMP #### [place] [address] ALT [Catalytic activity/Vol] 9 U/L Low 10-35 [facility] ([place] Comment on above: Performed By: #### G FR, LIP, CMP #### [place] [id number] AST [Catalytic activity/Vol] 19 U/L Normal 10-40 [facility] ([place] Comment on above: Performed By: #### G FR, LIP, CMP #### [place] [address] Bili Total 0.2 mg/dL Normal 0.2-1.0 [facility] ([place] Comment on above: Result Comment: Use of this assay is not recommended for patients undergoing treatment with eltrombopag due to the potential for falsely elevated results. Performed By: #### G FR, LIP, CMP #### [place] [address] Calcium [Mass/Vol] 7.6 mg/dL Low 8.4-10.2 [facility] ([place] Comment on above: Performed By: #### G FR, LIP, CMP #### [address] [address] Chloride [Moles/Vol] 107 mmol/L Normal 98-107 [facility] [place] Comment on above: Performed By: #### G FR, LIP, CMP #### [address] [address] CO2 [Moles/Vol] 24 mmol/L Normal 23-31 [facility] ([place] Comment on above: Performed By: #### G FR, LIP, CMP #### [address] [address] Electrolyte Balance 7.0 mEq/L Normal [facility] ([place] Comment on above: Performed By: #### G FR, LIP, CMP #### [address] [address] Globulin (S) [Mass/Vol] 4.1 G/dL Normal A [facility] ([place] Comment on above: Performed By: #### G FR, LIP, CMP #### [address] [address] Glucose [Mass/Vol] 90 mg/dL Normal 83-110 [facility] ([place] Comment on above: Performed By: #### G FR, LIP, CMP #### [address] [address] Potassium [Moles/Vol] 3.9 mmol/L Normal 3.5-5.1 [facility] ([place] Comment on above: Performed By: #### G FR, LIP, CMP #### [address] [address] Protein [Mass/Vol] 5.2 G/dL Low 6.4-8.2 [facility] ([place] Comment on above: Performed By: #### G FR, LIP, CMP #### [address] [address] Sodium [Moles/Vol] 138 mmol/L Normal 136-145 [facility] ([place] Comment on above: Performed By: #### G FR, LIP, CMP #### [facility] [address] [place] [address] Urea nitrogen [Mass/Vol] 19 mg/dL High 7-18 [facility] ([place] Comment on above: Performed By: #### G FR, LIP, CMP #### [facility] [address] [place] [address] Urea nitrogen/Creatinine [Mass ratio] 21 ratio Normal 7-27 [facility] ([place] Comment on above: Performed By: #### G FR, LIP, CMP #### [facility] [address] [place] [address] Creatinine [Mass/Vol] 0.92 mg/dL Normal 0.55-1.02 [facility] ([place] Comment on above: Performed By: #### G FR, LIP, CMP #### [facility] [address] [place] [address] ABD/PELVIS W/ IV CONTRAST ONLYon 11-10-2019 CT ABD/PELVIS W/ IV CONTRAST ONLY ORIGINAL CT ABD/PELVIS W/ IV CONTRAST ONLY CLINICAL STATEMENT: n/v s/p bladder removal. Bladder and uterine cancer COMPARISON: 08/23/2019 TECHNIQUE: Axial images were obtained from the lung bases through the pubic symphysis after the administration of IV contrast. Coronal and sagittal reformatted images were generated from the axial dataset. This exam was performed according to our departmental dose optimization program, and includes the following measures where applicable: automated exposure control, adjustment of the mAs and/or kVp according to patient size and/or exam, and an iterative reconstruction algorithm. FINDINGS: The heart is normal in size. There is a small LEFT pleural effusion. There is fatty infiltration of the liver. A nodular contour of the liver is identified. There is perihepatic ascites. The spleen is normal in size. The pancreas and RIGHT adrenal gland are unremarkable. An unchanged 1.9 cm nodules seen in the LEFT adrenal gland. A persistent filling defects suspected within the 2nd portion of the duodenum. No definite gallstones seen. The kidneys enhance symmetrically. There is mild bilateral hydroureteronephrosis. Cystectomy changes seen within urinary bladder diversion. A RIGHT lower quadrant urostomy noted. Soft tissue infiltration noted in the bladder fossa. There is possibly a developing fluid collection in the RIGHT pelvis which has lobulated borders and which measures 6.7 cm. There is likely an additional small developing collection in the LEFT pelvis measuring approximately 2.8 cm in image 88. No definite enlarged lymph nodes seen of the pelvis, retroperitoneum or mesentery. Surgical changes noted of the bowel. No obstruction seen. Ascites noted. The aorta is normal in caliber. There is moderate atherosclerosis of the larger arteries. No definite enlarged lymph nodes identified. Hysterectomy changes visualized. There is no fracture or aggressive osseous lesion. Degenerative changes are present in the spine. IMPRESSION: 1. Status post cystectomy with urinary diversion. There is mild bilateral hydroureteronephrosis. 2. Soft tissue infiltration/edema in the bladder resection cavity. There may be 2 developing fluid collections in the pelvis. Developing abscesses not excluded. Other postoperative collection could appear similar. 3. Ascites. 4. Small LEFT pleural effusion. 5. Filling defect in the duodenum could relate to a polypoid lesion. Upper endoscopy may be obtained 7. Fatty infiltration of the liver. There is a nodular liver contour which could relate to chronic hepatic disease. 8. Indeterminate LEFT adrenal nodule. Given the history of neoplasia, dedicated adrenal mass protocol or continued surveillance advised. 9. Other incidental findings, as above Interpreted By: Zach Hook MD Preliminary Report By: Zach Hook MD Electronically Signed By: Zach Hook MD Dictated Date: 11/10/2019 2:05:40 PM Prelim Date: 11/10/2019 2:05:40 PM Sign Date: 11/10/2019 2:25:46 PM Ordering Provider:Johnny Del Cid [facility] ([place]) CT HEAD OR BRAIN W/O CONTRAS Ton 11-10-2019 CT HEAD OR BRAIN W/O CONTRAST ORIGINAL Head CT 11/10/2019 1:52 PM INDICATION: n/v, hx of cancer COMPARISON: Outside CT June 2002 TECHNIQUE: Routine non-contrast head CT. This exam was performed according to our departmental dose optimization program, and includes the following measures where applicable: automated exposure control, adjustment of the mAs and/or kVp according to patient size and/or exam, and an iterative reconstruction algorithm. FINDINGS: The ventricles and sulci are mildly enlarged. There is no shift of midline structures. There are no abnormal intra or extra-axial fluid collections. There is mild irregular decreased attenuation in the white matter of the leigh radiata and centrum semiovale. Sanders-white matter differentiation is maintained. The paranasal sinuses and mastoid air cells are clear. The calvaria and the bones of the base of the skull are intact. Examination was performed within 24 hours of presentation to the hospital. IMPRESSION: Volume loss and white matter changes; otherwise unremarkable. Interpreted By: Vincent Carrillo MD Preliminary Report By: Vincent Carrillo MD Electronically Signed By: Vincent Carrillo MD Dictated Date: 11/10/2019 1:53:38 PM Prelim Date: 11/10/2019 1:53:38 PM Sign Date: 11/10/2019 1:55:39 PM Ordering Provider:Johnny Kwon [facility] ([place]) LAC 11-10-2019 Lactic Acid Lvl 1.4 mmol/L Normal 0.4-2.0 [facility] ([place] Comment on above: Performed By: #### G FR, LIP, CMP #### [place] [address] LIPon 11-10-2019 Lipase Level 83 U/L Normal 73-393 [facility] ([place] Comment on above: Performed By: #### G FR, LIP, CMP #### [place] [address] PBNPon 11-10-2019 Natriuretic peptide B (Bld) [Mass/Vol] 1650 pg/mL High 0-125 [facility] ([place] Comment on above: Result Comment: NT-p roBNP results of less than 300 pg/mL effectively rules out acute congestive heart failure with 99% negative predictive value. Performed By: #### G FR, LIP, CMP #### [place] [address] TROPon 11-10-2019 Troponin I.cardiac [Mass/Vol] 0.028 ng/mL Normal 0.000-0.040 [facility]) Comment on above: Result Comment: Trop onin I reference range: 0.00-0.040 ng/mL Negative and non-diagnostic. >0.040 ng/mL Consistent with cardiac damage, increased clinical risk and possibility of myocardial infarction. Serial measurements, a rise & fall in test results, clinical history, appropriate symptoms and/or ECG changes may help assess possibility of NM. *Other non-acute coronary syndrome conditions such as CHF, myocarditis, pulmonary emboli, sepsis and cardiac surgery could result in myocardial damage and increased troponin levels. Performed By: #### SONIYA MCFARLANE, CMP #### [address] [address] UAon 11-10-2019 Color (U) Yellow Normal [facility] ([place] Comment on above: Performed By: #### Sonia FIGUEROA LIP, CMP #### [place] [address] Glucose (U) [Mass/Vol] Negative Normal Negative [facility] ([place]) Comment on above: Performed By: #### Sonia FIGUEROA LIP, CMP #### [place] [address] Ketones Ql (U) Negative Normal Negative [facility] ([place]) Comment on above: Performed By: #### Sonia FIGUEROA LIP, CMP #### [place] [address] UA Appear Cloudy Abnormal Clear [facility] ([place] Comment on above: Performed By: #### Sonia FIGUEROA LIP, CMP #### [place] [id number] UA Blood Moderate Abnormal Negative [facility] ([place] Comment on above: Performed By: #### Sonia FIGUEROA LIP, CMP #### [address] [address] UA Leuk Est Large Abnormal Negative [facility] ([place] Comment on above: Performed By: #### Sonia FR, LIP, CMP #### [address] [address] UA Nitrite Negative Normal Negative [facility] ([place] Comment on above: Performed By: #### Sonia FIGUEROA LIP, CMP #### [place] [id number] UA pH 8.0 Normal 5.0 - 8.0 [facility] ([place] Comment on above: Performed By: #### Sonia FIGUEROA, LIP, CMP #### [place] [id number] UA Protein 30 mg/dL Normal Negative [facility] ([place] Comment on above: Performed By: #### G FR, LIP, CMP #### [place] [address] UA Spec Grav 1.020 Normal 1.015-1.025 [facility] ([place] Comment on above: Performed By: #### G FR, LIP, CMP #### [place] [address] UA Specimen Type Clean Catch [facility] ([place] Comment on above: Performed By: #### G FR, LIP, CMP #### [place] [address] UA Urobilinogen 0.2 E.U./dL Normal 0.2-1.0 [facility] ([place] Comment on above: Performed By: #### G FR, LIP, CMP #### [place] [address] Urobilinogen Qn (U) Negative Normal Negative [facility] ([place] Comment on above: Performed By: #### G FR, LIP, CMP #### [place] [address] XR CHEST 1 VIEWon 11-10-2019 XR CHEST 1 VIEW ORIGINAL XR CHEST 1 VIEW CLINICAL STATEMENT: chest pain. COMPARISON: None FINDINGS: A RIGHT internal jugular Mediport terminates at the lower SVC level. The heart size is top normal. There is no pulmonary consolidation. No pneumothorax. Small LEFT pleural effusion is not excluded. Bony detail is suboptimal. IMPRESSION: 1. Small LEFT pleural effusion. Interpreted By: Zach Hook MD Preliminary Report By: Zach Hook MD Electronically Signed By: Zach Hook MD Dictated Date: 11/10/2019 2:25:49 PM Prelim Date: 11/10/2019 2:25:49 PM Sign Date: 11/10/2019 2:26:49 PM Ordering Provider:Johnny Del Cid [facility] ([place]) Jeanine 11-03-2019 ALFRED Telephone (UROLAE) NICOLE TREVINOLETTY ([id number]) 1950 F Date Time Provider Department 11/03/19 SHAILESH YIN During your visit today, we recorded the following information about you: [facility] 11/03/2019 3:43 PM Signed Patient daughter called states patient started Cipro last night and is causing vomiting. She has d/c and would like to know if there is another antibiotic she could try? [facility] Shailesh Yin DO, MBA 11/04/2019 11:23 AM Signed Bactrim ordered. Enid Bradshaw CMA 11/04/2019 11:28 AM Signed Called patient to advise of new script. Enid Bradshaw [facility] Allergies As of Date: 11/03/2019 Noted Allergy Reaction CIPROFLOXACIN 11/03/2019 11 - Vomiting PENICILLIN G 09/22/2019 2 - Rash Date Reviewed: 11/02/2019 Reviewed by: Shailesh Yin - Fully Assessed Reason for Visit: Medication allergy [Other] Order(s):sulfamethoxazo le-trimethoprim (BACTRIM DS,SEPTRA DS) 800-160 mg per tabletTake 1 tablet by mouth twice daily for 7 days.Disp: 14 tabletRfl: 0 Prescriptions as of 11/03/2019 Sig: SULFAMETHOXAZOLE 800 MG-TRIME* Take 1 tablet by mouth twice * PAROXETINE 20 MG TABLET Take 1 tablet by mouth once d* FUROSEMIDE 20 MG TABLET Take 1 tablet by mouth once d* OXYCODONE-ACETAMINOPHEN 10 MG* Take 1 tablet by mouth every * DOCUSATE SODIUM 100 MG CAPSULE Take 1 capsule by mouth twice* MISCELLANEOUS MEDICAL SUPPLY * Ileal conduit/urostomy suppli* ENOXAPARIN 40 MG/0.4 ML SUBCU* Inject 0.4 mL subcutaneously * ZOLPIDEM 5 MG TABLET Take 1 tablet by mouth at bed* IMIPRAMINE 10 MG TABLET Take 1 tablet by mouth daily * ALBUTEROL INHALATION Inhale 1 Inhalation as instru* DEXTROAMPHETAMINE-AMPHE TAMINE* Take 5 mg by mouth three time* Problem List As Of Date 11/03/2019 Noted Resolved Bladder cancer (HCC) [C67.9] 10/13/2019 Obesity, Class II, BMI 35-39.9 [E66.9] 10/14/2019 Prescriptions ordered this encounter Disp Refills Start End SULFAMETHOXAZOLE 800 MG-TRIMETHOPRIM* 14 t* 0 11/04/2019 11/11/2019 Route: ORAL Sig: Take 1 tablet by mouth twice daily for 7 days. Medications Discontinued During This Encounter ciprofloxacin HCl (CIPRO) 500 mg tab* 14 t* 0 11/02/2019 11/04/2019 Route: ORAL Sig: Take 1 tablet by mouth twice daily for 7 days. Disc: Reason for discontinue is not on file. Encounter Status:Closed by SHAILESH YIN on 11/04/19 [facility] CNOVon 11-02-2019 CNOV Office Visit (AKURFL ) LETTY MORENO ([id number]) 1950 F Date Time Provider Department 11/02/19 10:00 AM SHAILESH YIN During your visit today, we recorded the following information about you: Weight Height 89.4 kg 1.499 m Shailesh Yin DO, MBA 11/02/2019 5:47 PM Signed ?? [facility] UROLOGY LOCATION: [address] [place] [address] ESTABLISHED PATIENT PATIENT INFO: Letty Trevino 69 year old Chief Complaint: Bladder Cancer HPI S/P RARC with IIC on 10/13/19 She is doing well at this time but feels weak. Her bowels are normal. She is walking. She is eating. Her stents spell out spontaneously 2 days ago during a bag change. She is here for SERENE drain removal. Outputs have been low. Her legs are swollen. I have spoken to her daughter on the telephone. At this time she is also depressed. She is afebrile. 1-Duration: 2019 2-Location: bladder 3-Severity: N/A 4-Quality: Not applicable 5-Context: N/A 6-Timing: N/A 7-Modifying factors: No treatment prior to referral 8-Associated signs AND symptoms: no additional symptoms No question data found. PATHOLOGY: FINAL DIAGNOSIS: A) URETER, LEFT DISTAL, SEGMENTAL RESECTION - NEGATIVE FOR DYSPLASIA OR MALIGNANCY. B) URETER, RIGHT MARGIN, EXCISION - NEGATIVE FOR DYSPLASIA OR MALIGNANCY. C) LYMPH NODES, BILATERAL PELVIC, EXCISION - APPROXIMATELY 19 LYMPH NODES NEGATIVE FOR METASTATIC CARCINOMA. 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 ?TUMOR EXTENDS INTO LAMINA PROPRIA, MUSCULARIS PROPRIA AND PERIVESICULAR SOFT TISSUES WELL VAGINAL WALL. RESECTION MARGIN FOCALLY POSITIVE?(ANTERIOR WALL). ?LYMPHOVASCULAR INVASION PRESENT. ONE OF TWO LYMPH NODES POSITIVE FOR METASTATIC ADENOCARCINOMA. ?SEE COMMENT. COMMENT: ?Dr. Cb Draper reviewed entry level account representative slides from part D and agrees with the diagnosis. Urinary Bladder Cancer Case Summary Procedure: ? ?Anterior exenteration. Tumor site: Posterior, left wall, right wall, anterior wall, dome and ? trigone, right ureter. Tumor size: ? Greatest dimension: 6.5 cm. ? Additional dimensions: 6.2 x 2.3 cm. Histologic type: Urothelial carcinoma, invasive with focal ? micropapillary features. Histologic grade: ? High grade. Lymphovascular invasion: Present. Tumor extension: ? Tumor invades lamina propria, muscularis propria, deep ? ? ? muscularis propria (outer half), perivesical soft tissue ? ?macroscopically, and adjacent structures vagina. Margins: ? ?Involved by invasive carcinoma, soft tissue margin. Regional lymph nodes: ?Number involved: 1. ?Number examined: Approximately 21. Pathologic stage: ? pT4a pN1. OPERATIVE PROCEDURE: Robotic laparoscopic cystectomy w/intracorporeal ileal conduit urinary diversion, robotic laparoscopic surgical w/bilateral pelvic lymph node dissection, robotic anterior pelvic exenteration, ileal conduit CLINICAL INFORMATION: Bladder cancer (HCC) INTRAOPERATIVE CONSULTATION: FROZEN SECTION DIAGNOSIS A: ?Left distal ureteral margin: ?Negative for urothelial cell dysplasia or malignancy. (EAC) LAB: WBC (thou/cmm) Date Value 10/18/2019 12.67 (H) RBC (mil/cmm) Date Value 10/18/2019 2.76 (L) HGB (g/dL) Date Value 10/18/2019 8.8 (L) Hematocrit (%) Date Value 10/18/2019 28.8 (L) MCV (fl) Date Value 10/18/2019 104.3 (H) MCH (pg) Date Value 10/18/2019 31.9 MCHC (%) Date Value 10/18/2019 30.6 (L) Platelet Count (thou/cmm) Date Value 10/18/2019 256 MPV (fl) Date Value 10/18/2019 9.9 Creatinine Date Value Ref Range Status 10/18/2019 0.65 0.51 - 0.95 mg/dL Final Comment: Use of this assay is not recommended for patients undergoing treatment with phenindione, due to the potential for falsely depressed results. 10/17/2019 0.71 0.51 - 0.95 mg/dL Final Comment: Use of this assay is not recommended for patients undergoing treatment with phenindione, due to the potential for falsely depressed results. 10/16/2019 0.86 0.51 - 0.95 mg/dL Final Comment: Use of this assay is not recommended for patients undergoing treatment with phenindione, due to the potential for falsely depressed results. 10/15/2019 0.90 0.51 - 0.95 mg/dL Final Comment: Use of this assay is not recommended for patients undergoing treatment with phenindione, due to the potential for falsely depressed results. IMAGING: None No imaging to review. ALLERGIES: ALLERGIES Allergen Reactions - Penicillin G Rash MEDICATIONS: oxyCODONE-acetaminophen (PERCOCET) 10-325 mg tablet Take 1 tablet by mouth every 6 hours as needed for Pain for up to 15 days. docusate sodium (COLACE) 100 mg capsule Take 1 capsule by mouth twice daily. imipramine HCl (TOFRANIL) 10 mg tablet Take 1 tablet by mouth daily at bedtime. ALBUTEROL INHALATION Inhale 1 Inhalation as instructed as needed. dextroamphetamine-amphe tamine (ADDERALL) 5 mg tablet Take 5 mg by mouth three times daily. Miscellaneous Medical Supply misc Ileal conduit/urostomy supplies:1 box of Coloplast no-sting barrier film wipes (Ref #[id number]).1 box of Coloplast no-sting adhesive remover (Ref #[id number]).1 bottle of Coloplast stoma powder (Ref #[id number]).1 tube of Coloplast stoma paste (Ref #[id number]).1 box of Coloplast small rings (Ref #[id number]).2 boxes of Coloplast Red flex flat cut-to-fit (Ref #[id number]).1 box of Coloplast Red Urostomy clear pouches (Ref #[id number]).1 Box of Coloplast Brava Elastic barrier strips (ref#[id number]). enoxaparin (LOVENOX) 40 mg/0.4 mL Inject 0.4 mL subcutaneously every 24 hours. zolpidem (AMBIEN) 5 mg tablet Take 1 tablet by mouth at bedtime as needed for up to 5 days. for insomnia. 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 HEAD AND NECK: No blurred vision or Sjogren's syndrome CARDIOVASCULAR: NO CHEST PAIN, PALPITATIONS, ANKLE EDEMA RESPIRATORY: No chronic cough, wheezing, dyspnea, hemoptysis. MUSCULOSKELETAL: NO CHRONIC BACK PAIN, ARTHRITIS, CHRONIC NECK PAIN SKIN: NO VARICOSE VEINS, RASH, ABNORMAL ITCHING BLOOD/LYMPHATIC: No easy bleeding, easy bruising, transfusion Hx NEUROLOGICAL: NO HEADACHES, NUMBNESS, SEIZURES, STROKE PSYCHIATRIC: No depression or inordinate anxiety The remainder of the ROS was negative. PHYSICAL EXAMINATION Ht 149.9 cm (4' 11) Wt 89.4 kg (197 lb) BMI 39.79 kg/m? General appearance: Well appearing, alert, in no acute distress and well-hydrated, well nourished Skin: Skin color, texture, turgor normal, no suspicious rashes or lesions Head: Normocephalic, no masses, lesions, tenderness or abnormalities Abdomen: Normal abdominal exam, Abdomen soft, non-tender. Bowel sounds normal. No masses, organomegaly Genitourinary: FEMALE EXAM: Incisions CDI. SERENE drain removed. Stoma pink with excess mucous. Cloudy urine. Bilateral pitting edema. PVR: NA IMPRESSION/PLAN: T4 N1 Bladder cancer. S/P RARC with IIC. Doing well. Some weakness. SERENE drain removed. Antibiotics for cloudy urine. Pathology reviewed with patient. We have discussed adjuvant radiation/chemotherapy. We will hold at this time so she can recover. Check labs in 4 weeks. Bilateral pitting edema - lasix X 3 days. Depression - needs paxil I spent 30 minutes in the visit, with more than 50% of the total [id number] time of the visit in counseling / coordination of care. Shailesh Yin DO MBA Referring Provider: PARMINDER GUAJARDO [[id number]] Allergies As of Date: 11/02/2019 Noted Allergy Reaction PENICILLIN G 09/22/2019 2 - Rash Date Reviewed: 11/02/2019 Reviewed by: Shailesh Yin - Fully Assessed Reason for Visit: Bladder Cancer [515] Primary Visit Diagnosis:Malignant neoplasm of urinary bladder, unspecified site (HCC) [C67.9] Other Visit Diagnosis:SOO (acute kidney injury) (HCC) [N17.9] Order(s):CBC + DIFF [SQCBCDIF] Order #: [id number] FUTURE BASIC METABOLIC PNL [SQBMP] Order #: [id number] FUTURE PARoxetine (PAXIL) 20 mg tabletTake 1 tablet by mouth once daily.Disp: 60 tabletRfl: 1 ciprofloxacin HCl (CIPRO) 500 mg tabletTake 1 tablet by mouth twice daily for 7 days.Disp: 14 tabletRfl: 0 furosemide (LASIX) 20 mg tabletTake 1 tablet by mouth once daily. For 3 days to decrease fluid. Repeat in one monthDisp: 3 tabletRfl: 1 Prescriptions as of 11/02/2019 Sig: OXYCODONE-ACETAMINOPHEN 10 MG* Take 1 tablet by mouth every * DOCUSATE SODIUM 100 MG CAPSULE Take 1 capsule by mouth twice* IMIPRAMINE 10 MG TABLET Take 1 tablet by mouth daily * ALBUTEROL INHALATION Inhale 1 Inhalation as instru* DEXTROAMPHETAMINE-AMPHE TAMINE* Take 5 mg by mouth three time* PAROXETINE 20 MG TABLET Take 1 tablet by mouth once d* CIPROFLOXACIN 500 MG TABLET Take 1 tablet by mouth twice * FUROSEMIDE 20 MG TABLET Take 1 tablet by mouth once d* MISCELLANEOUS MEDICAL SUPPLY * Ileal conduit/urostomy suppli* ENOXAPARIN 40 MG/0.4 ML SUBCU* Inject 0.4 mL subcutaneously * ZOLPIDEM 5 MG TABLET Take 1 tablet by mouth at bed* Problem List As Of Date 11/02/2019 Noted Resolved Bladder cancer (HCC) [C67.9] 10/13/2019 Obesity, Class II, BMI 35-39.9 [E66.9] 10/14/2019 Prescriptions ordered this encounter Disp Refills Start End PAROXETINE 20 MG TABLET 60 t* 1 11/02/2019 Route: ORAL Sig: Take 1 tablet by mouth once daily. CIPROFLOXACIN 500 MG TABLET 14 t* 0 11/02/2019 11/09/2019 Route: ORAL Sig: Take 1 tablet by mouth twice daily for 7 days. FUROSEMIDE 20 MG TABLET 3 ta* 1 11/02/2019 Route: ORAL Sig: Take 1 tablet by mouth once daily. For 3 days to decrease fluid. Repeat in one month Follow-up and Disposition History Recorded Letter Text Encounter Status:Closed by SHAILESH YIN on 11/02/19 Normal [facility] PROGRESSon 11-02-2019 PROGRESS HNO ID: [id number] Author: Shailesh Yin Service: ? Author Type: Physician Type: Progress Notes Filed: 11/02/2019 5:47 PM Note Text: ?? [facility] UROLOGY LOCATION: [address] [place] [address] ESTABLISHED PATIENT PATIENT INFO: Letty Trevino 69 year old Chief Complaint: Bladder Cancer HPI S/P RARC with IIC on 10/13/19 She is doing well at this time but feels weak. Her bowels are normal. She is walking. She is eating. Her stents spell out spontaneously 2 days ago during a bag change. She is here for SERENE drain removal. Outputs have been low. Her legs are swollen. I have spoken to her daughter on the telephone. At this time she is also depressed. She is afebrile. 1-Duration: 2019 2-Location: bladder 3-Severity: N/A 4-Quality: Not applicable 5-Context: N/A 6-Timing: N/A 7-Modifying factors: No treatment prior to referral 8-Associated signs AND symptoms: no additional symptoms No question data found. PATHOLOGY: FINAL DIAGNOSIS: A) URETER, LEFT DISTAL, SEGMENTAL RESECTION - NEGATIVE FOR DYSPLASIA OR MALIGNANCY. B) URETER, RIGHT MARGIN, EXCISION - NEGATIVE FOR DYSPLASIA OR MALIGNANCY. C) LYMPH NODES, BILATERAL PELVIC, EXCISION - APPROXIMATELY 19 LYMPH NODES NEGATIVE FOR METASTATIC CARCINOMA. 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 ?TUMOR EXTENDS INTO LAMINA PROPRIA, MUSCULARIS PROPRIA AND PERIVESICULAR SOFT TISSUES WELL VAGINAL WALL. RESECTION MARGIN FOCALLY POSITIVE?(ANTERIOR WALL). ?LYMPHOVASCULAR INVASION PRESENT. ONE OF TWO LYMPH NODES POSITIVE FOR METASTATIC ADENOCARCINOMA. ?SEE COMMENT. COMMENT: ?Dr. Cb Draper reviewed entry level account representative slides from part D and agrees with the diagnosis. Urinary Bladder Cancer Case Summary Procedure: ? ?Anterior exenteration. Tumor site: Posterior, left wall, right wall, anterior wall, dome and ? trigone, right ureter. Tumor size: ? Greatest dimension: 6.5 cm. ? Additional dimensions: 6.2 x 2.3 cm. Histologic type: Urothelial carcinoma, invasive with focal ? micropapillary features. Histologic grade: ? High grade. Lymphovascular invasion: Present. Tumor extension: ? Tumor invades lamina propria, muscularis propria, deep ? ? ? muscularis propria (outer half), perivesical soft tissue ? ?macroscopically, and adjacent structures vagina. Margins: ? ?Involved by invasive carcinoma, soft tissue margin. Regional lymph nodes: ?Number involved: 1. ?Number examined: Approximately 21. Pathologic stage: ? pT4a pN1. OPERATIVE PROCEDURE: Robotic laparoscopic cystectomy w/intracorporeal ileal conduit urinary diversion, robotic laparoscopic surgical w/bilateral pelvic lymph node dissection, robotic anterior pelvic exenteration, ileal conduit CLINICAL INFORMATION: Bladder cancer (HCC) INTRAOPERATIVE CONSULTATION: FROZEN SECTION DIAGNOSIS A: ?Left distal ureteral margin: ?Negative for urothelial cell dysplasia or malignancy. (EAC) LAB: WBC (thou/cmm) Date Value 10/18/2019 12.67 (H) RBC (mil/cmm) Date Value 10/18/2019 2.76 (L) HGB (g/dL) Date Value 10/18/2019 8.8 (L) Hematocrit (%) Date Value 10/18/2019 28.8 (L) MCV (fl) Date Value 10/18/2019 104.3 (H) MCH (pg) Date Value 10/18/2019 31.9 MCHC (%) Date Value 10/18/2019 30.6 (L) Platelet Count (thou/cmm) Date Value 10/18/2019 256 MPV (fl) Date Value 10/18/2019 9.9 Creatinine Date Value Ref Range Status 10/18/2019 0.65 0.51 - 0.95 mg/dL Final Comment: Use of this assay is not recommended for patients undergoing treatment with phenindione, due to the potential for falsely depressed results. 10/17/2019 0.71 0.51 - 0.95 mg/dL Final Comment: Use of this assay is not recommended for patients undergoing treatment with phenindione, due to the potential for falsely depressed results. 10/16/2019 0.86 0.51 - 0.95 mg/dL Final Comment: Use of this assay is not recommended for patients undergoing treatment with phenindione, due to the potential for falsely depressed results. 10/15/2019 0.90 0.51 - 0.95 mg/dL Final Comment: Use of this assay is not recommended for patients undergoing treatment with phenindione, due to the potential for falsely depressed results. IMAGING: None No imaging to review. ALLERGIES: ALLERGIES Allergen Reactions - Penicillin G Rash MEDICATIONS: oxyCODONE-acetaminophen (PERCOCET) 10-325 mg tablet Take 1 tablet by mouth every 6 hours as needed for Pain for up to 15 days. docusate sodium (COLACE) 100 mg capsule Take 1 capsule by mouth twice daily. imipramine HCl (TOFRANIL) 10 mg tablet Take 1 tablet by mouth daily at bedtime. ALBUTEROL INHALATION Inhale 1 Inhalation as instructed as needed. dextroamphetamine-amphe tamine (ADDERALL) 5 mg tablet Take 5 mg by mouth three times daily. Miscellaneous Medical Supply [facility] Ileal conduit/urostomy supplies:1 box of Coloplast no-sting barrier film wipes (Ref #[id number]).1 box of Coloplast no-sting adhesive remover (Ref #[id number]).1 bottle of Coloplast stoma powder (Ref #[id number]).1 tube of Coloplast stoma paste (Ref #[id number]).1 box of Coloplast small rings (Ref #[id number]).2 boxes of Coloplast Red flex flat cut-to-fit (Ref #[id number]).1 box of Coloplast Red Urostomy clear pouches (Ref #[id number]).1 Box of Coloplast Brava Elastic barrier strips (ref#[id number]). enoxaparin (LOVENOX) 40 mg/0.4 mL Inject 0.4 mL subcutaneously every 24 hours. zolpidem (AMBIEN) 5 mg tablet Take 1 tablet by mouth at bedtime as needed for up to 5 days. for insomnia. 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 HEAD AND NECK: No blurred vision or Sjogren's syndrome CARDIOVASCULAR: NO CHEST PAIN, PALPITATIONS, ANKLE EDEMA RESPIRATORY: No chronic cough, wheezing, dyspnea, hemoptysis. MUSCULOSKELETAL: NO CHRONIC BACK PAIN, ARTHRITIS, CHRONIC NECK PAIN SKIN: NO VARICOSE VEINS, RASH, ABNORMAL ITCHING BLOOD/LYMPHATIC: No easy bleeding, easy bruising, transfusion Hx NEUROLOGICAL: NO HEADACHES, NUMBNESS, SEIZURES, STROKE PSYCHIATRIC: No depression or inordinate anxiety The remainder of the ROS was negative. PHYSICAL EXAMINATION Ht 149.9 cm (4' 11) Wt 89.4 kg (197 lb) BMI 39.79 kg/m? General appearance: Well appearing, alert, in no acute distress and well-hydrated, well nourished Skin: Skin color, texture, turgor normal, no suspicious rashes or lesions Head: Normocephalic, no masses, lesions, tenderness or abnormalities Abdomen: Normal abdominal exam, Abdomen soft, non-tender. Bowel sounds normal. No masses, organomegaly Genitourinary: FEMALE EXAM: Incisions CDI. SERENE drain removed. Stoma pink with excess mucous. Cloudy urine. Bilateral pitting edema. PVR: NA IMPRESSION/PLAN: T4 N1 Bladder cancer. S/P RARC with IIC. Doing well. Some weakness. SERENE drain removed. Antibiotics for cloudy urine. Pathology reviewed with patient. We have discussed adjuvant radiation/chemotherapy. We will hold at this time so she can recover. Check labs in 4 weeks. Bilateral pitting edema - lasix X 3 days. Depression - needs paxil I spent 30 minutes in the visit, with more than 50% of the total [id number] time of the visit in counseling / coordination of care. Shailesh Yin DO MBA [facility] 11-01-2019 [facility] Telephone (AKURFL) LETTY MORENO ([id number]) 1950 F Date Time Provider Department 11/01/19 SHAILESH YIN During your visit today, we recorded the following information about you: Aure HORVATH 11/01/2019 10:06 AM Signed While prescreening the patient for her appointment tomorrow she mentioned that she had a slight cough and had a few for a few days and per her she does not have one right now. Please advise. Aure Yin DO, MBA 11/01/2019 12:23 PM Signed I will need to see her tomorrow for drain removal. Make sure she does not have a fever when she is checked at the door. Katelyn Urias CMA 11/01/2019 12:56 PM Signed Noted. Katelyn Urias [employer] LOGGING [employer]S LOGGER Allergies As of Date: 11/01/2019 Noted Allergy Reaction PENICILLIN G 09/22/2019 2 - Rash Date Reviewed: 10/13/2019 Reviewed by: Twyla (Rn) Beatriz Galdamez RN - Fully Assessed Reason for Visit: Appointment tomorrow [Other] Prescriptions as of 11/01/2019 Sig: OXYCODONE-ACETAMINOPHEN 10 MG* Take 1 tablet by mouth every * DOCUSATE SODIUM 100 MG CAPSULE Take 1 capsule by mouth twice* MISCELLANEOUS MEDICAL SUPPLY * Ileal conduit/urostomy suppli* ENOXAPARIN 40 MG/0.4 ML SUBCU* Inject 0.4 mL subcutaneously * ZOLPIDEM 5 MG TABLET Take 1 tablet by mouth at bed* IMIPRAMINE 10 MG TABLET Take 1 tablet by mouth daily * ALBUTEROL INHALATION Inhale 1 Inhalation as instru* DEXTROAMPHETAMINE-AMPHE TAMINE* Take 5 mg by mouth three time* Problem List As Of Date 11/01/2019 Noted Resolved Bladder cancer (HCC) [C67.9] 10/13/2019 Obesity, Class II, BMI 35-39.9 [E66.9] 10/14/2019 Encounter Status:Closed by SHAILESH YIN on 11/01/19 [facility] Jeanine 10-27-2019 [facility] Telephone (GABY) LETTY MORENO ([id number]) 1950 F Date Time Provider Department 10/27/19 BRENDA KEARNEY (LUIS) GABY During your visit today, we recorded the following information about you: Brenda Kearney RN, RN 10/27/2019 11:09 AM Signed TELEPHONE PROGRESS NOTE Phone call from patient's daughter Apryl to ostomy care nursing services. Calling to inquire about supplies - no-sting skin prep and urostomy pouch adapters. Updated on type of supplies used in hospital. Daughter reports pouch has leaked twice but is doing better with application, that the homecare nurse continues home care services at this time and is ordering supplies for patient at this time, and that the peristomal skin is improving and intact. States that separation at mucocutaneous junction is slightly more oval shape and she has had to adjust size and shape cutting pouch. States that stoma is slightly more sunken in. Reinforced changes in abdomen during post-op period, approx 4-6 weeks after surgery. Instructed that powder and skin prep are not needed if skin is intact. May use powder in separation and generally heals on own over time. Instructed on ssx of infection and when to call surgeon with complications regarding stoma. Patient's daughter voices understanding. Brenda Kearney RN CWOCN Shailesh Yin DO, MBA 10/27/2019 1:04 PM Signed Irish: Please set up appt next week with me in [facility] for SERENE drain and stent removal. Thanks Allergies As of Date: 10/27/2019 Noted Allergy Reaction PENICILLIN G 09/22/2019 2 - Rash Date Reviewed: 10/13/2019 Reviewed by: Twyla (Rn) Beatriz Galdamez RN - Fully Assessed Reason for Visit: Ostomy Care [3507] Prescriptions as of 10/27/2019 Sig: OXYCODONE-ACETAMINOPHEN 10 MG* Take 1 tablet by mouth every * DOCUSATE SODIUM 100 MG CAPSULE Take 1 capsule by mouth twice* MISCELLANEOUS MEDICAL SUPPLY * Ileal conduit/urostomy suppli* ENOXAPARIN 40 MG/0.4 ML SUBCU* Inject 0.4 mL subcutaneously * ZOLPIDEM 5 MG TABLET Take 1 tablet by mouth at bed* IMIPRAMINE 10 MG TABLET Take 1 tablet by mouth daily * ALBUTEROL INHALATION Inhale 1 Inhalation as instru* DEXTROAMPHETAMINE-AMPHE TAMINE* Take 5 mg by mouth three time* Problem List As Of Date 10/27/2019 Noted Resolved Bladder cancer (HCC) [C67.9] 10/13/2019 Obesity, Class II, BMI 35-39.9 [E66.9] 10/14/2019 Encounter Status:Closed by BRENDA KEARNEY on 10/27/19 Normal [facility] Basic Panelon 10-18-2019 Creatinine [Mass/Vol] 0.65 mg/dL Normal 0.51-0.95 [facility] Comment on above: Result Comment: Use of this assay is not recommended for patients undergoing treatment with phenindione, due to the potential for falsely depressed results. Performed By: #### P 8 #### [facility] [address] [place], [place] [address] Anion gap [Moles/Vol] 8 mmol/L Normal 8-16 [facility] Comment on above: Performed By: #### P 8 #### [facility] [address] [place], [place] [address] CO2 [Moles/Vol] 21 mmol/L Normal 21-32 [facility] Comment on above: Performed By: #### P 8 #### [facility] [address] [place], [place] [address] Glucose [Mass/Vol] 84 mg/dL Normal 70-99 [facility] Comment on above: Performed By: #### P 8 #### [facility] [address] [place], [place] [address] Urea nitrogen [Mass/Vol] 14 mg/dL Normal 7-18 [facility] Comment on above: Performed By: #### P 8 #### [facility] [address] [place], [place] [address] Calcium [Mass/Vol] 7.8 mg/dL Low 8.5-10.1 [facility] Comment on above: Performed By: #### P 8 #### [facility] [address] [place], [place] [address] Chloride [Moles/Vol] 111 mmol/L High 98-107 [facility] Comment on above: Performed By: #### P 8 #### [facility] [address] [place], [place] [address] Potassium [Moles/Vol] 3.7 mmol/L Normal 3.5-5.1 [facility] Comment on above: Performed By: #### P 8 #### [facility] [address] [place], [place] [address] Sodium [Moles/Vol] 136 mmol/L Normal 136-145 [facility] Comment on above: Performed By: #### P 8 #### [facility] [address] [place] [address] Hemogram/Diffon 10-18-2019 Abs Immature Grans 0.04 thou/cmm Normal 0.00-0.05 [facility] Comment on above: Performed By: #### P 8 #### [facility] [address] [place], [place] [address] Abs Neut (ANC) 8.11 thou/cmm High 1.56-6.13 [facility] Comment on above: Performed By: #### P 8 #### [facility] [address] [place] [address] Abs. Baso 0.03 thou/cmm Normal 0.01-0.08 [facility] Comment on above: Performed By: #### P 8 #### [facility] [address] [place] [address] Abs. [place] 0.60 thou/cmm Normal 0.27-0.70 [facility] Comment on above: Performed By: #### P 8 #### [facility] [address] [place] [address] Basophils/100 WBC (Bld) 0.2 % Normal [facility] Comment on above: Performed By: #### P 8 #### [facility] [address] [place], [place] [address] Eosinophils (Bld) [#/Vol] 0.27 thou/cmm Normal 0.00-0.31 [facility] Comment on above: Performed By: #### P 8 #### [facility] [address] [place], [place] [address] Eosinophils/100 WBC (Bld) 2.1 % Normal [facility] Comment on above: Performed By: #### P 8 #### [facility] [address] [place] [address] Immature Grans 0.30 % Normal [facility] Comment on above: Performed By: #### P 8 #### [facility] [address] [place], [place] [address] Lymphocytes (Bld) [#/Vol] 3.64 thou/cmm Normal 1.18-3.74 [facility] Comment on above: Performed By: #### P 8 #### [facility] [address] [place], [place] [address] Lymphocytes/100 WBC (Bld) 28.7 % Normal [facility] Comment on above: Performed By: #### P 8 #### [facility] [address] [place], [place] [address] Monocytes/100 WBC (Bld) 4.7 % Normal [facility] Comment on above: Performed By: #### P 8 #### [facility] [address] [place], [place] [address] Seg Neutrophil 64.0 % Normal [facility] Comment on above: Performed By: #### P 8 #### [facility] [address] [place] [address] Erythrocyte distribution width (RBC) [Ratio] 14.4 % Normal 11.7-14.4 [facility] Comment on above: Performed By: #### P 8 #### [facility] [address] [place] [address] Hematocrit (Bld) [Volume fraction] 28.8 % Low 34.1-44.9 [facility] Comment on above: Performed By: #### P 8 #### [facility] [address] [place] [address] Hemoglobin (Bld) [Mass/Vol] 8.8 g/dL Low 11.2-15.7 [facility] Comment on above: Performed By: #### P 8 #### [facility] [address] [place] [address] MCH (RBC) [Entitic mass] 31.9 pg Normal 25.6-32.2 [facility] Comment on above: Performed By: #### P 8 #### [facility] [address] [place] [address] MCHC (RBC) [Mass/Vol] 30.6 % Low 31.6-34.8 [facility] Comment on above: Performed By: #### P 8 #### [facility] [address] [place] [address] MCV (RBC) [Entitic vol] 104.3 fL High 79.4-94.8 [facility] Comment on above: Performed By: #### P 8 #### [facility] [address] [place] [address] Platelet mean volume (Bld) [Entitic vol] 9.9 fL Normal 9.4-12.3 [facility] Comment on above: Performed By: #### P 8 #### [facility] [address] [place], [place] [address] Platelets (Bld) [#/Vol] 256 thou/cmm Normal 182-369 [facility] Comment on above: Performed By: #### P 8 #### [facility] [address] [place] [address] RBC (Bld) [#/Vol] 2.76 mil/cmm Low 3.93-5.22 [facility] Comment on above: Performed By: #### P 8 #### [facility] [address] [place] [address] RDW SD 54.7 fl High 36.4-46.3 [facility] Comment on above: Performed By: #### P 8 #### [facility] [address] [place], [place] [address] WBC (Bld) [#/Vol] 12.67 thou/cmm High 3.98-10.04 [facility] Comment on above: Performed By: #### P 8 #### [facility] [address] [place] [address] MDRD GFRon 10-18-2019 GFR/1.73 sq M predicted among non-blacks MDRD (S/P/Bld) [Vol rate/Area] mL/min/{1.73_m2} Normal >60mL/min/1 .73m2 [facility] Comment on above: Result Comment: If t he patient is , multiply the result by 1.210. Performed By: #### C BC1 #### [facility] [address] [place] [id number] Basic Panelon 10-17-2019 Creatinine [Mass/Vol] 0.71 mg/dL Normal 0.51-0.95 [facility] Comment on above: Result Comment: Use of this assay is not recommended for patients undergoing treatment with phenindione, due to the potential for falsely depressed results. Performed By: #### P 8 #### [facility] [address] [place], [place] [address] Anion gap [Moles/Vol] 10 mmol/L Normal 8-16 [facility] Comment on above: Performed By: #### P 8 #### [facility] [address] [place], [place] [address] Calcium [Mass/Vol] 7.8 mg/dL Low 8.5-10.1 [facility] Comment on above: Performed By: #### P 8 #### [facility] [address] [place], [place] [address] CO2 [Moles/Vol] 20 mmol/L Low 21-32 [facility] Comment on above: Performed By: #### P 8 #### [facility] [address] [place], [place] [address] Glucose [Mass/Vol] 73 mg/dL Normal 70-99 [facility] Comment on above: Performed By: #### P 8 #### [facility] [address] [place], [place] [address] Urea nitrogen [Mass/Vol] 19 mg/dL High 7-18 [facility] Comment on above: Performed By: #### P 8 #### [facility] [address] [place], [place] [address] Chloride [Moles/Vol] 110 mmol/L High 98-107 [facility] Comment on above: Performed By: #### P 8 #### [facility] [address] [place], [place] [address] Potassium [Moles/Vol] 3.7 mmol/L Normal 3.5-5.1 [facility] Comment on above: Performed By: #### P 8 #### [facility] [address] [place], [place] [address] Sodium [Moles/Vol] 136 mmol/L Normal 136-145 [facility] Comment on above: Performed By: #### P 8 #### [facility] [address] [place], [place] [address] Hemogram/Diffon 10-17-2019 Abs Immature Grans 0.05 thou/cmm Normal 0.00-0.05 [facility] Comment on above: Performed By: #### P 8 #### [facility] [address] [place] [address] Abs Neut (ANC) 7.08 thou/cmm High 1.56-6.13 [facility] Comment on above: Performed By: #### P 8 #### [facility] [address] [place] [address] Abs. Baso 0.02 thou/cmm Normal 0.01-0.08 [facility] Comment on above: Performed By: #### P 8 #### [facility] [address] [place] [address] Abs. [place] 0.47 thou/cmm Normal 0.27-0.70 [facility] Comment on above: Performed By: #### P 8 #### [facility] [address] [place] [address] Basophils/100 WBC (Bld) 0.2 % Normal [facility] Comment on above: Performed By: #### P 8 #### [place] [address] Eosinophils (Bld) [#/Vol] 0.07 thou/cmm Normal 0.00-0.31 [facility] Comment on above: Performed By: #### P 8 #### [place] [address] Eosinophils/100 WBC (Bld) 0.7 % Normal [facility] Comment on above: Performed By: #### P 8 #### [facility] [address] [place] [address] Erythrocyte distribution width (RBC) [Ratio] 14.2 % Normal 11.7-14.4 [facility] Comment on above: Performed By: #### P 8 #### [place] [address] Hematocrit (Bld) [Volume fraction] 27.0 % Low 34.1-44.9 [facility] Comment on above: Performed By: #### P 8 #### [facility] [address] [place], [place] [address] Hemoglobin (Bld) [Mass/Vol] 8.4 g/dL Low 11.2-15.7 [facility] Comment on above: Performed By: #### P 8 #### [facility] [address] [place], [place] [address] Immature Grans 0.50 % Normal [facility] Comment on above: Performed By: #### P 8 #### [facility] [address] [place] [address] Lymphocytes (Bld) [#/Vol] 2.14 thou/cmm Normal 1.18-3.74 [facility] Comment on above: Performed By: #### P 8 #### [facility] [address] [place] [address] Lymphocytes/100 WBC (Bld) 21.8 % Normal [facility] Comment on above: Performed By: #### P 8 #### [facility] [address] [place] [address] MCH (RBC) [Entitic mass] 31.9 pg Normal 25.6-32.2 [facility] Comment on above: Performed By: #### P 8 #### [facility] [address] [place] [address] MCHC (RBC) [Mass/Vol] 31.1 % Low 31.6-34.8 [facility] Comment on above: Performed By: #### P 8 #### [facility] [address] [place] [address] MCV (RBC) [Entitic vol] 102.7 fL High 79.4-94.8 [facility] Comment on above: Performed By: #### P 8 #### [facility] [address] [place] [id number] Monocytes/100 WBC (Bld) 4.8 % Normal [facility] Comment on above: Performed By: #### P 8 #### [facility] [address] [place] [address] Platelet mean volume (Bld) [Entitic vol] 9.3 fL Low 9.4-12.3 [facility] Comment on above: Performed By: #### P 8 #### [facility] [address] [place], [place] [address] Platelets (Bld) [#/Vol] 193 thou/cmm Normal 182-369 [facility] Comment on above: Performed By: #### P 8 #### [facility] [address] [place], [place] [address] RBC (Bld) [#/Vol] 2.63 mil/cmm Low 3.93-5.22 [facility] Comment on above: Performed By: #### P 8 #### [facility] [address] [place] [address] RDW SD 54.1 fl High 36.4-46.3 [facility] Comment on above: Performed By: #### P 8 #### [facility] [address] [place] [address] Seg Neutrophil 72.0 % Normal [facility] Comment on above: Performed By: #### P 8 #### [facility] [address] [place] [address] WBC (Bld) [#/Vol] 9.83 thou/cmm Normal 3.98-10.04 [facility] Comment on above: Performed By: #### P 8 #### [facility] [address] [place] [address] Basic Panelon 10-16-2019 Creatinine [Mass/Vol] 0.86 mg/dL Normal 0.51-0.95 [facility] Comment on above: Result Comment: Use of this assay is not recommended for patients undergoing treatment with phenindione, due to the potential for falsely depressed results. Performed By: #### C BC1 #### [facility] [address] [place] [address] Anion gap [Moles/Vol] 10 mmol/L Normal 8-16 [facility] Comment on above: Performed By: #### C BC1 #### [facility] [address] [place] [address] CO2 [Moles/Vol] 21 mmol/L Normal 21-32 [facility] Comment on above: Performed By: #### C BC1 #### [facility] [address] [place] [address] Glucose [Mass/Vol] 77 mg/dL Normal 70-99 [facility] Comment on above: Performed By: #### C BC1 #### [facility] [address] [place] [address] Urea nitrogen [Mass/Vol] 20 mg/dL High 7-18 [facility] Comment on above: Performed By: #### C BC1 #### [facility] [address] [place] [address] Calcium [Mass/Vol] 7.9 mg/dL Low 8.5-10.1 [facility] Comment on above: Performed By: #### C BC1 #### [facility] [address] [place] [address] Chloride [Moles/Vol] 108 mmol/L High 98-107 [facility] Comment on above: Performed By: #### C BC1 #### [place] [address] Potassium [Moles/Vol] 4.0 mmol/L Normal 3.5-5.1 [facility] Comment on above: Performed By: #### C BC1 #### [place] [address] Sodium [Moles/Vol] 135 mmol/L Low 136-145 [facility] Comment on above: Performed By: #### C BC1 #### [place] [address] Hemogram/Diffon 10-16-2019 Abs Immature Grans 0.06 thou/cmm High 0.00-0.05 [facility] Comment on above: Performed By: #### C BC1 #### [place] [address] Abs Neut (ANC) 8.17 thou/cmm High 1.56-6.13 [facility] Comment on above: Performed By: #### C BC1 #### [place] [address] Abs. Baso 0.01 thou/cmm Normal 0.01-0.08 [facility] Comment on above: Performed By: #### C BC1 #### [facility] [address] [place], [place] [address] Abs. [place] 0.61 thou/cmm Normal 0.27-0.70 [facility] Comment on above: Performed By: #### C BC1 #### [facility] [address] [place], [place] [address] Basophils/100 WBC (Bld) 0.1 % Normal [facility] Comment on above: Performed By: #### C BC1 #### [facility] [address] [place], [place] [address] Eosinophils (Bld) [#/Vol] 0.04 thou/cmm Normal 0.00-0.31 [facility] Comment on above: Performed By: #### C BC1 #### [address] [address] Eosinophils/100 WBC (Bld) 0.4 % Normal [facility] Comment on above: Performed By: #### C BC1 #### [facility] [address] [place], [place] [address] Erythrocyte distribution width (RBC) [Ratio] 14.6 % High 11.7-14.4 [facility] Comment on above: Performed By: #### C BC1 #### [address] [address] Hematocrit (Bld) [Volume fraction] 27.6 % Low 34.1-44.9 [facility] Comment on above: Performed By: #### C BC1 #### [facility] [address] [place], [place] [address] Hemoglobin (Bld) [Mass/Vol] 8.8 g/dL Low 11.2-15.7 [facility] Comment on above: Performed By: #### C BC1 #### [address] [address] Immature Grans 0.50 % Normal [facility] Comment on above: Performed By: #### C BC1 #### [facility] [address] [place] [address] Lymphocytes (Bld) [#/Vol] 2.25 thou/cmm Normal 1.18-3.74 [facility] Comment on above: Performed By: #### C BC1 #### [facility] [address] [place], [place] [address] Lymphocytes/100 WBC (Bld) 20.2 % Normal [facility] Comment on above: Performed By: #### C BC1 #### [facility] [address] [place], [place] [address] MCH (RBC) [Entitic mass] 32.8 pg High 25.6-32.2 [facility] Comment on above: Performed By: #### C BC1 #### [facility] [address] [place] [address] MCHC (RBC) [Mass/Vol] 31.9 % Normal 31.6-34.8 [facility] Comment on above: Performed By: #### C BC1 #### [facility] [address] [place] [address] MCV (RBC) [Entitic vol] 103.0 fL High 79.4-94.8 [facility] Comment on above: Performed By: #### C BC1 #### [facility] [address] [place] [address] Monocytes/100 WBC (Bld) 5.5 % Normal [facility] Comment on above: Performed By: #### C BC1 #### [facility] [address] [place] [address] Platelet mean volume (Bld) [Entitic vol] 9.1 fL Low 9.4-12.3 [facility] Comment on above: Performed By: #### C BC1 #### [facility] [address] [place] [id number] Platelets (Bld) [#/Vol] 188 thou/cmm Normal 182-369 [facility] Comment on above: Performed By: #### C BC1 #### [facility] [address] [place] [address] RBC (Bld) [#/Vol] 2.68 mil/cmm Low 3.93-5.22 [facility] Comment on above: Performed By: #### C BC1 #### [facility] [address] [place], [place] [address] RDW SD 54.9 fl High 36.4-46.3 [facility] Comment on above: Performed By: #### C BC1 #### [facility] [address] [place], [place] [address] Seg Neutrophil 73.3 % Normal [facility] Comment on above: Performed By: #### C BC1 #### [facility] [address] [place], [place] [address] WBC (Bld) [#/Vol] 11.15 thou/cmm High 3.98-10.04 [facility] Comment on above: Performed By: #### C BC1 #### [facility] [address] [place], [place] [address] XR ABDOMEN 1V SUPINEon 10-15 XR ABDOMEN 1V SUPINE * * *Final Report* * * DATE OF EXAM: Oct 16 2019 10:40AM [id number] [id number] - XR ABDOMEN 1V SUPINE / PROCEDURE REASON: Nausea, vomiting * * * * Physician Interpretation * * * * EXAM TITLE: XR ABDOMEN 1V SUPINE DATE: 10/16/2019 COMPARISON: 10/14/2019 CLINICAL INDICATION/HISTORY: Nausea and vomiting. Abdominal pain. TECHNIQUE: Portable KUB FINDINGS: Bilateral ureteral stents extending into a right-sided urostomy again noted. The proximal coiled portion of the right ureteral stent projects over the right iliac crest before heading cephalad and looping back upon itself, possibly within the renal pelvis. A catheter extends into the left side of the pelvis. Although difficult to evaluate for free air on this portable supine exam, there may be free air within the right upper quadrant and this is likely postsurgical. The bowel gas pattern is nonspecific. No significant bowel dilatation. There are no mass lesions. No unusual calcifications. Degenerative change at the lower lumbar spine. IMPRESSION: No significant interval change. Projector Booth Operator: LAKEISHA Transcribe Date/Time: Oct 16 2019 10:45A Dictated by : TONO ULRICH MD This examination was interpreted and the report reviewed and electronically signed by: TONO ULRICH MD on Oct 16 2019 10:49AM EST Normal [facility] Basic Panelon 10-15-2019 Creatinine [Mass/Vol] 0.90 mg/dL Normal 0.51-0.95 [facility] [facility] Comment on above: Result Comment: Use of this assay is not recommended for patients undergoing treatment with phenindione, due to the potential for falsely depressed results. Performed By: #### C BC1 #### [facility] [address] [place], [place] [address] Anion gap [Moles/Vol] 9 mmol/L Normal 8-16 [facility] Comment on above: Performed By: #### C BC1 #### [facility] [address] [place], [place] [address] CO2 [Moles/Vol] 24 mmol/L Normal 21-32 [facility] Comment on above: Performed By: #### C BC1 #### [facility] [address] [place], [place] [address] Glucose [Mass/Vol] 85 mg/dL Normal 70-99 [facility] Comment on above: Performed By: #### C BC1 #### [facility] [address] [place], [place] [address] Urea nitrogen [Mass/Vol] 20 mg/dL High 7-18 [facility] Comment on above: Performed By: #### C BC1 #### [facility] [address] [place], [place] [address] Calcium [Mass/Vol] 8.0 mg/dL Low 8.5-10.1 [facility] Comment on above: Performed By: #### C BC1 #### [facility] [address] [place], [place] [address] Chloride [Moles/Vol] 104 mmol/L Normal 98-107 [facility] Comment on above: Performed By: #### C BC1 #### [facility] [address] [place], [place] [address] Potassium [Moles/Vol] 4.3 mmol/L Normal 3.5-5.1 [facility] Comment on above: Performed By: #### C BC1 #### [facility] [address] [place], [place] [address] Sodium [Moles/Vol] 133 mmol/L Low 136-145 [facility] Comment on above: Performed By: #### C BC1 #### [place] [address] Creatinine, Fluidon 10-15-19 20 Creatinine [Mass/Vol] 0.9 mg/dL Normal [facility] Comment on above: Result Comment: Crea tinine measurement in peritoneal or drainage fluids is considered a useful test for detecting the presence of urine leaking through a defect in the urinary tract. A ratio of serous fluid creatinine to a concurrent serum creatinine > 1.0 mg/dL indicates possible urine extravasation. Use of this assay is not recommended for patients undergoing treatment with phenindione, due to the potential for falsely depressed results Performed By: #### C BC1 #### [place] [address] Specimen type Nom (Spec) SERENE Drainage Normal [facility] Comment on above: Performed By: #### C BC1 #### [place] [address] Creatinine [Mass/Vol] 1.0 mg/dL Normal [facility] Comment on above: Result Comment: Crea tinine measurement in peritoneal or drainage fluids is considered a useful test for detecting the presence of urine leaking through a defect in the urinary tract. A ratio of serous fluid creatinine to a concurrent serum creatinine > 1.0 mg/dL indicates possible urine extravasation. Use of this assay is not recommended for patients undergoing treatment with phenindione, due to the potential for falsely depressed results Performed By: #### C BC1 #### [place] [address] Specimen type Nom (Spec) SERENE Drainage Normal [facility] Comment on above: Performed By: #### C BC1 #### [place] [address] Hemogram/Diffon 10-15-2019 Abs Immature Grans 0.12 thou/cmm High 0.00-0.05 [facility] Comment on above: Performed By: #### C BC1 #### [place] [address] Abs Neut (ANC) 12.94 thou/cmm High 1.56-6.13 [facility] Comment on above: Performed By: #### C BC1 #### [facility] [address] [place] [address] Abs. Baso 0.02 thou/cmm Normal 0.01-0.08 [facility] Comment on above: Result Comment: Smea r scanned; tech agrees with automated differential Performed By: #### C BC1 #### [facility] [address] [place] [address] Abs. [place] 0.84 thou/cmm High 0.27-0.70 [facility] Comment on above: Performed By: #### C BC1 #### [facility] [address] [place] [address] Basophils/100 WBC (Bld) 0.1 % Normal [facility] Comment on above: Performed By: #### C BC1 #### [place] [address] Eosinophils (Bld) [#/Vol] 0.03 thou/cmm Normal 0.00-0.31 [facility] Comment on above: Performed By: #### C BC1 #### [place] [address] Eosinophils/100 WBC (Bld) 0.2 % Normal [facility] Comment on above: Performed By: #### C BC1 #### [place] [address] Immature Grans 0.70 % Normal [facility] Comment on above: Performed By: #### C BC1 #### [facility] [address] [place] [address] Lymphocytes (Bld) [#/Vol] 2.60 thou/cmm Normal 1.18-3.74 [facility] Comment on above: Performed By: #### C BC1 #### [place] [address] Lymphocytes/100 WBC (Bld) 15.7 % Normal [facility] Comment on above: Performed By: #### C BC1 #### [facility] [address] [place] [address] Monocytes/100 WBC (Bld) 5.1 % Normal [facility] Comment on above: Performed By: #### C BC1 #### [facility] [address] [place] [address] Seg Neutrophil 78.2 % Normal [facility] Comment on above: Performed By: #### C BC1 #### [facility] [address] [place] [address] Erythrocyte distribution width (RBC) [Ratio] 14.4 % Normal 11.7-14.4 [facility] Comment on above: Performed By: #### C BC1 #### [facility] [address] [place] [address] Hematocrit (Bld) [Volume fraction] 29.9 % Low 34.1-44.9 [facility] Comment on above: Performed By: #### C BC1 #### [facility] [address] [place] [address] Hemoglobin (Bld) [Mass/Vol] 9.2 g/dL Low 11.2-15.7 [facility] Comment on above: Performed By: #### C BC1 #### [facility] [address] [place] [address] MCH (RBC) [Entitic mass] 31.7 pg Normal 25.6-32.2 [facility] Comment on above: Performed By: #### C BC1 #### [facility] [address] [place] [address] MCHC (RBC) [Mass/Vol] 30.8 % Low 31.6-34.8 [facility] Comment on above: Performed By: #### C BC1 #### [facility] [address] [place] [address] MCV (RBC) [Entitic vol] 103.1 fL High 79.4-94.8 [facility] Comment on above: Performed By: #### C BC1 #### [facility] [address] [place] [address] Platelet mean volume (Bld) [Entitic vol] 9.9 fL Normal 9.4-12.3 [facility] Comment on above: Performed By: #### C BC1 #### [facility] [address] [place], [place] [address] Platelets (Bld) [#/Vol] 226 thou/cmm Normal 182-369 [facility] Comment on above: Performed By: #### C BC1 #### [facility] [address] [place] [address] RBC (Bld) [#/Vol] 2.90 mil/cmm Low 3.93-5.22 [facility] Comment on above: Performed By: #### C BC1 #### [place] [address] RDW SD 54.9 fl High 36.4-46.3 [facility] Comment on above: Performed By: #### C BC1 #### [place] [address] WBC (Bld) [#/Vol] 16.55 thou/cmm High 3.98-10.04 [facility] Comment on above: Performed By: #### C BC1 #### [place] [address] Basic Panelon 10-14-2019 Creatinine [Mass/Vol] 0.88 mg/dL Normal 0.51-0.95 [facility] Comment on above: Result Comment: Use of this assay is not recommended for patients undergoing treatment with phenindione, due to the potential for falsely depressed results. Performed By: #### C BC1 #### [facility] [address] [place] [address] Anion gap [Moles/Vol] 11 mmol/L Normal 8-16 [facility] Comment on above: Performed By: #### C BC1 #### [place] [address] CO2 [Moles/Vol] 24 mmol/L Normal 21-32 [facility] Comment on above: Performed By: #### C BC1 #### [place] [address] Urea nitrogen [Mass/Vol] 13 mg/dL Normal 7-18 [facility] Comment on above: Performed By: #### C BC1 #### [facility] [address] [place], [place] [address] Calcium [Mass/Vol] 8.3 mg/dL Low 8.5-10.1 [facility] Comment on above: Performed By: #### C BC1 #### [facility] [address] [place], [place] [address] Glucose [Mass/Vol] 134 mg/dL High 70-99 [facility] Comment on above: Performed By: #### C BC1 #### [facility] [address] [place], [place] [address] Chloride [Moles/Vol] 103 mmol/L Normal 98-107 [facility] Comment on above: Performed By: #### C BC1 #### [facility] [address] [place], [place] [address] Potassium [Moles/Vol] 4.9 mmol/L Normal 3.5-5.1 [facility] Comment on above: Performed By: #### C BC1 #### [facility] [address] [place], [place] [address] Sodium [Moles/Vol] 133 mmol/L Low 136-145 [facility] Comment on above: Performed By: #### C BC1 #### [facility] [address] [place], [place] [address] Hemogramon 10-14-2019 Erythrocyte distribution width (RBC) [Ratio] 14.2 % Normal 11.7-14.4 [facility] Comment on above: Performed By: #### C BC1 #### [facility] [address] [place], [place] [address] Hematocrit (Bld) [Volume fraction] 30.4 % Low 34.1-44.9 [facility] Comment on above: Performed By: #### C BC1 #### [facility] [address] [place], [place] [address] Hemoglobin (Bld) [Mass/Vol] 9.6 g/dL Low 11.2-15.7 [facility] Comment on above: Performed By: #### C BC1 #### [facility] [address] [place] [address] MCH (RBC) [Entitic mass] 32.8 pg High 25.6-32.2 [facility] Comment on above: Performed By: #### C BC1 #### [facility] [address] [place] [address] MCHC (RBC) [Mass/Vol] 31.6 % Normal 31.6-34.8 [facility] Comment on above: Performed By: #### C BC1 #### [facility] [address] [place] [address] MCV (RBC) [Entitic vol] 103.8 fL High 79.4-94.8 [facility] Comment on above: Performed By: #### C BC1 #### [facility] [address] [place] [address] Platelet mean volume (Bld) [Entitic vol] 10.3 fL Normal 9.4-12.3 [facility] Comment on above: Performed By: #### C BC1 #### [facility] [address] [place] [address] Platelets (Bld) [#/Vol] 200 thou/cmm Normal 182-369 [facility] Comment on above: Performed By: #### C BC1 #### [facility] [address] [place] [address] RBC (Bld) [#/Vol] 2.93 mil/cmm Low 3.93-5.22 [facility] Comment on above: Performed By: #### C BC1 #### [facility] [address] [place] [address] RDW SD 54.6 fl High 36.4-46.3 [facility] Comment on above: Performed By: #### C BC1 #### [facility] [address] [place] [address] WBC (Bld) [#/Vol] 15.34 thou/cmm High 3.98-10.04 [facility] Comment on above: Performed By: #### C BC1 #### [facility] [address] [place], [place] [address] XR ABDOMEN 1V SUPINEon 10-13 XR ABDOMEN 1V SUPINE * * *Final Report* * * DATE OF EXAM: Oct 14 2019 7:53AM AKX [id number] - XR ABDOMEN 1V SUPINE / PROCEDURE REASON: Post-operative / post-procedure assessment, asymptomatic * * * * Physician Interpretation * * * * Abdomen supine: HISTORY: Indication: Status post cystectomy. TECHNIQUE: Views obtained: XR ABDOMEN 1V SUPINE Comparison: NONE. RESULT: Postoperative changes following cystectomy with placement of ureteral stents. No abnormal calcifications are seen. The bowel gas pattern is nonspecific and unremarkable.. No bony abnormalities are seen IMPRESSION: See discussion above Projector Booth Operator: LAKEISHA Transcribe Date/Time: Oct 14 2019 2:23P Dictated by : NIRAJ VALDEZ MD This examination was interpreted and the report reviewed and electronically signed by: NIRAJ VALDEZ MD on Oct 14 2019 2:23PM EST Normal [facility] ABO/Rh Confirmationon 2019 ABO group Nom (Bld) B Normal [facility] Comment on above: Performed By: #### A BISHOP #### [place] [address] RH Type Positive Normal [facility] Comment on above: Performed By: #### A BISHOP #### [address] [address] CG8 Arterial Panel (i-STAT)o n 10-13-2019 Base Excess (i-STAT) 0.0 mmol/L Normal -2.0 to 3.0 [facility] Comment on above: Performed By: #### C G8IA #### [facility] [address] [place], [place] [address] Glucose [Mass/Vol] 141 mg/dL High 70-99 [facility] Comment on above: Performed By: #### C G8IA #### [address] [address] HCO3 (Bld) [Moles/Vol] 24.7 mmol/L Normal 22.0-26.0 [facility] Comment on above: Performed By: #### C G8IA #### [facility] [address] [place] [address] Hematocrit (Bld) [Volume fraction] 25 %PCV Low 38-51 [facility] Comment on above: Performed By: #### Lupe G8IA #### [facility] [address] [place] [address] Hemoglobin (Bld) [Mass/Vol] 8.5 g/dL Low 12.0-17.0 [facility] Comment on above: Performed By: #### Lupe G8IA #### [facility] [address] [place] [address] Ionized Calcium (iSTAT) 4.7 mg/dL Normal 4.5-5.3 [facility] Comment on above: Performed By: #### Lupe G8IA #### [place] [address] O2% Sat. (i-STAT) 100.0 % High 95.0-98.0 [facility] Comment on above: Performed By: #### Lupe G8IA #### [place] [address] Oxygen (Bld) [Partial pressure] 214.0 mm Hg High 80.0-105.0 [facility] Comment on above: Performed By: #### Lupe G8IA #### [place] [address] PCO2 (i-STAT) 38.1 mm Hg Normal 35.0-45.0 [facility] Comment on above: Performed By: #### Lupe G8IA #### [place] [address] pH (Bld) 7.419 [pH] Normal 7.350-7.450 [facility] Comment on above: Performed By: #### Lupe G8IA #### [place] [address] Potassium [Moles/Vol] 4.3 mmol/L Normal 3.5-4.9 [facility] Comment on above: Performed By: #### Lupe G8IA #### [address] [place], [place] [address] Sodium [Moles/Vol] 130 mmol/L Low 138-146 [facility] Comment on above: Performed By: #### C G8IA #### [facility] [address] [place] [address] Total CO2 (i-STAT) 26 mmol/L Normal 23-27 [facility] Comment on above: Performed By: #### C G8IA #### [place] [address] Catecholamines, Frac., Plasm aon 10-13-2019 Cholesterol [Mass/Vol] SEE NOTE Normal [facility] Comment on above: Result Comment: (NOT E) INTERPRETIVE INFORMATION: Catecholamines Panel, Plasma Small increases in catecholamines (less than 2 times the upper reference limit) usually are the result of physiological stimuli, drugs, or improper specimen collection. Significant elevation of one or more catecholamines (2 or more times the upper reference limit) is associated with an increased probability of a neuroendocrine tumor. Measurement of plasma or urine fractionated metanephrines provides better diagnostic sensitivity than measurement of catecholamines. Higher catecholamine concentrations are observed in specimens collected from upright or standing adults. Epinephrine may be increased by approximately 20 percent; norepinephrine up to 700 pg/mL; dopamine, unchanged. Performed by [employer], [address] [place] [id number] [email or web address], Michael Markham MD, Lab. Director Performing Laboratory: Performed By: #### P CATX #### [place] [address] Dopamine 64 pg/mL High [facility] Comment on above: Result Comment: Refe rence range: 0 to 20 Performed By: #### P CATX #### [place] [address] Epinephrine 13 pg/mL Normal [facility] Comment on above: Result Comment: Refe rence range: 10 to 200 Performed By: #### P CATX #### [place] [address] Norepinephrine 925 pg/mL High [facility] Comment on above: Result Comment: Refe rence range: 80 to 520 Performed By: #### P CATX #### [facility] [address] [place], [place] [address] Glucose Meteron 10-13-2019 Glucose [Mass/Vol] 107 mg/dL High 70-99 [facility] Comment on above: Performed By: #### G LMET #### [facility] [address] [place], [place] [address] Metanephrines, Fr Plason Metanephrines, Fr Plas 22 pg/mL Normal 12-67 [facility] Comment on above: Result Comment: Refe rence Ranges: Hypertensive adult > or = 18 yrs old: 12-72 pg/mL Normotensive adult > or = 18 yrs old: 12-67 pg/mL Normotensive children < 18 yrs old: 10-95 pg/mL This test was developed and its performance characteristics determined by [facility] ([facility]). It has not been cleared or approved by the FDA. [facility] is regulated under CLIA as qualified to perform high complexity testing. This test is used for clinical purposes. It should not be regarded as investigational or for research. Performed By: #### M ETPX #### [facility] [address] [place], [place] [address] Normetanephrine, Fr Plas 315 pg/mL High 18-101 [facility] Comment on above: Result Comment: Refe rence Ranges: Hypertensive adult > or = 18 yrs old: 24-145 pg/mL Normotensive adult > or = 18 yrs old: 18-101 pg/mL Normotensive children < 18 yrs old: 22-83 pg/mL Methyldopa may cause false elevation of normetanephrine levels in this assay. If patient is on methyldopa, interpret results with caution. This test was developed and its performance characteristics determined by [facility] ([facility]). It has not been cleared or approved by the FDA. [facility] is regulated under CLIA as qualified to perform high complexity testing. This test is used for clinical purposes. It should not be regarded as investigational or for research. Performing Laboratory: [facility] [address] [place] [address] Performed By: #### M ETPX #### [place] [address] Surgical Tissue Examon 10-12 Surgical Tissue Exam Test performed at [place] [address] NAME: LETTY MORENO REQUESTING: SHAILESH YIN DO COPY TO: TUMOR REGISTRY; NEONATAL NURSE FINAL DIAGNOSIS: A) URETER, LEFT DISTAL, SEGMENTAL RESECTION - NEGATIVE FOR DYSPLASIA OR MALIGNANCY. B) URETER, RIGHT MARGIN, EXCISION - NEGATIVE FOR DYSPLASIA OR MALIGNANCY. C) LYMPH NODES, BILATERAL PELVIC, EXCISION - APPROXIMATELY 19 LYMPH NODES NEGATIVE FOR METASTATIC CARCINOMA. 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 TUMOR EXTENDS INTO LAMINA PROPRIA, MUSCULARIS PROPRIA AND PERIVESICULAR SOFT TISSUES WELL VAGINAL WALL. RESECTION MARGIN FOCALLY POSITIVE (ANTERIOR WALL). LYMPHOVASCULAR INVASION PRESENT. ONE OF TWO LYMPH NODES POSITIVE FOR METASTATIC ADENOCARCINOMA. SEE COMMENT. COMMENT: Dr. Cb Draper reviewed entry level account representative slides from part D and agrees with the diagnosis. Urinary Bladder Cancer Case Summary Procedure: Anterior exenteration. Tumor site: Posterior, left wall, right wall, anterior wall, dome and trigone, right ureter. Tumor size: Greatest dimension: 6.5 cm. Additional dimensions: 6.2 x 2.3 cm. Histologic type: Urothelial carcinoma, invasive with focal micropapillary features. Histologic grade: High grade. Lymphovascular invasion: Present. Tumor extension: Tumor invades lamina propria, muscularis propria, deep muscularis propria (outer half), perivesical soft tissue macroscopically, and adjacent structures vagina. Margins: Involved by invasive carcinoma, soft tissue margin. Regional lymph nodes: Number involved: 1. Number examined: Approximately 21. Pathologic stage: pT4a pN1. OPERATIVE PROCEDURE: Robotic laparoscopic cystectomy w/intracorporeal ileal conduit urinary diversion, robotic laparoscopic surgical w/bilateral pelvic lymph node dissection, robotic anterior pelvic exenteration, ileal conduit CLINICAL INFORMATION: Bladder cancer (HCC) INTRAOPERATIVE CONSULTATION: FROZEN SECTION DIAGNOSIS A: Left distal ureteral margin: Negative for urothelial cell dysplasia or malignancy. (EAC) FROZEN SECTION DIAGNOSIS B: Negative for urothelial cell dysplasia or malignancy. (EAC) GROSS DESCRIPTION: A) Left distal ureteral margin out of body @ 1155 Specimen A labeled distal ureteral margin consists of a ring-shaped portion of glistening de guzman-white tissue measuring 5 cm in diameter x 3 mm in length. It is submitted in its entirety frozen section diagnosis. B) Right ureteral margin Specimen B labeled right ureteral margin consists of a ring-shaped portion of glistening de guzman-white tissue measuring 8 mm in diameter x 3 mm in length. The specimen is submitted in its entirety for frozen section diagnosis. EAC:hlm C) Bilateral pelvic lymph nodes Received in formalin labeled bilateral pelvic lymph nodes are multiple de guzman-brown, soft tissue segments aggregating to 11 x 7.8 x 2.5 cm. Palpation of the soft tissue reveals 17 possible lymph nodes ranging from 0.7 x 0.6 x 0.5 cm to 6 x 2.1 x 2.1 cm. Additionally, there are multiple brown-de guzman possible lymph nodes fragments aggregating to 3.5 x 1.5 x 1.5 cm. Cut surfaces of the lymph nodes are de ugzman, smooth and glistening. All lymph nodes and lymph nodes fragments are submitted as follows: C1 - one possible lymph node, bisected; C2 - one possible lymph node bisected; C3 - one possible lymph node bisected; C4 - three possible lymph nodes; C5 - one possible lymph node, bisected; C6 - one possible lymph node, serially sectioned; C7 - two possible lymph nodes; C8 - one possible lymph node, serially sectioned; C9-C10 - one possible lymph node, serially sectioned; C11-C12 - one possible lymph node, serially sectioned; C13 - one possible lymph node, bisected; C14 - one possible lymph node, serially sectioned; C15 - one possible lymph node, serially sectioned; C16-C24 - largest possible lymph node, serially sectioned; C25-C27 - all fragments of possible lymph nodes. D) Bladder, urethra, bilateral fallopian tubes and ovaries, vaginal wall Received in formalin labeled bladder, urethra, bilateral fallopian tubes and ovaries, vaginal wall is a cystectomy specimen consisting of bladder with attached vaginal wall, bilateral fallopian tubes and ovaries. The bladder measures 10.5 x 8 x 4.5 cm. The external surface of the bladder is covered by a smooth serosal lining at the dome and fibroadipose tissue at the remaining portion. The posterior aspect is remarkable for a strip of vaginal wall measuring 4.4 x 3.5 cm, with pink-de guzman, glistening mucosa. The vaginal wall is outlined in blue with the remainder of the bladder being inked black. The bladder is opened to reveal a pink-de guzman, exophytic, necrotic mass measuring 6.5 x 6.2 x 2.3 cm. The mass is located on all six samuels of the bladder (posterior, left wall, right wall, anterior wall, dome and trigone). Sectioning of the specimen reveals the mass extends beyond the muscularis and into the perivesical adipose tissue. The mass abuts the anterior, posterior, and bladder dome wall's soft tissue resection margins. The mass is located 1.0 cm from the vaginal wall resection margin. There is scantly present unremarkable bladder mucosa at the trigone which is de guzman and glistening. The segment of right ureter measures 1.6 cm in length x 1 cm in diameter and the segment left ureter measures 0.4 cm in length x 0.5 cm in diameter. The mass surrounds, however does not grossly extend into, both ureters. The ureteral mucosa is de guzman and glistening with longitudinal folds. The ureters are patent. Palpation reveals two possible lymph nodes within the perivesical adipose tissue measuring 1.7 x 1.5 x 0.7 cm and 2.2 x 1.7 x 0.8 cm. The right fimbriated fallopian tube measure 3.2 cm in length with a diameter ranging from 0.5 to 0.7 cm. The de guzman, smooth and glistening serosa is remarkable for multiple paratubal. Sectioning reveals a pin-point lumen. The possible left fimbriated fallopian tube is identified measuring 1.8 cm in length with a diameter of 0.4 cm, slightly adherent to the bladder. The serosa is de guzman-brown and dull. Sectioning reveals a possible lumen in two cross sections. The right ovary measures 3.3 x 1.8 x 1 cm. The right ovary is de guzman, slightly cerebroid and glistening. Sectioning reveals one de guzman-white possible corpus albicans with the remaining cut surfaces being de guzman and unremarkable. The left ovary measures 2.5 x 2 x 1.5 cm. The left ovary is de guzman-brown with thin slightly dull fibrous adhesions. Sectioning reveals a serous fluid filled subcortical cystic structure measuring 0.4 x 0.3 x 0.2 cm. The remaining cut surfaces are de guzman and grossly unremarkable. Cable Inspector sections are submitted as follows: D1 - urethral margin; D2-D3 - mass from bladder anterior wall (D2 to include closest extension to soft tissue resection margin); D4 - mass with right ureter; D5 - mass from right bladder wall; D6 - mass with closest extension to posterior bladder wall soft tissue resection margin; D7 - mass with closest extension to bladder dome soft tissue resection margin; D8 - mass from left bladder wall; D9 - mass with left ureter; D10 - mass from trigone; D11 - mass from trigone to include closest vaginal wall resection margin; D12 - mass to include vaginal wall resection margin; D13-D14 - unremarkable bladder from trigone to include vaginal wall; D15 - smaller possible lymph nodes, bisected; D16-D18 - larger possible lymph nodes, serially sectioned; D19 - right fallopian tube (to include entire fimbria); D20 - left possible fallopian tube (to include entire fimbria); D21 - right ovary; D22 - left ovary. RSA:ivet MCKEON M.D. PATHOLOGIST (Electronic signature on file) Signed out: 10/19/2019 16:36 PRINTED: 10/19/2019 Page 1 of 1 Normal [facility] Comment on above: Performed By: #### P 8 #### [place] [address] Type and Screenon 10-13-2019 ABO group Nom (Bld) B Normal [facility] Comment on above: Performed By: #### T &S #### [place] [address] Comment See Below Normal [facility] Comment on above: Result Comment: Scre en &/or Xmatch expires in 3 days at 12 midnight. Redraw patient at that time. Performed By: #### T &S #### [place] [address] RH Type Positive Normal [facility] Comment on above: Performed By: #### T &S #### [place] [address] Basic Panelon 10-07-2019 Creatinine [Mass/Vol] 0.72 mg/dL Normal 0.51-0.95 [facility] Comment on above: Result Comment: Use of this assay is not recommended for patients undergoing treatment with phenindione, due to the potential for falsely depressed results. Performed By: #### P 8 #### [facility] [address] [place], [place] [address] Anion gap [Moles/Vol] 9 mmol/L Normal 8-16 [facility] Comment on above: Performed By: #### P 8 #### [facility] [address] [place], [place] [address] CO2 [Moles/Vol] 27 mmol/L Normal 21-32 [facility] Comment on above: Performed By: #### P 8 #### [facility] [address] [place], [place] [address] Glucose [Mass/Vol] 100 mg/dL High 70-99 [facility] Comment on above: Performed By: #### P 8 #### [facility] [address] [place], [place] [address] Urea nitrogen [Mass/Vol] 11 mg/dL Normal 7-18 [facility] Comment on above: Performed By: #### P 8 #### [facility] [address] [place], [place] [address] Calcium [Mass/Vol] 8.6 mg/dL Normal 8.5-10.1 [facility] Comment on above: Performed By: #### P 8 #### [facility] [address] [place], [place] [address] Chloride [Moles/Vol] 101 mmol/L Normal 98-107 [facility] Comment on above: Performed By: #### P 8 #### [facility] [address] [place], [place] [address] Potassium [Moles/Vol] 4.5 mmol/L Normal 3.5-5.1 [facility] Comment on above: Performed By: #### P 8 #### [facility] [address] [place], [place] [address] Sodium [Moles/Vol] 132 mmol/L Low 136-145 [facility] Comment on above: Performed By: #### P 8 #### [facility] [address] [place] [address] Hemogramon 10-07-2019 Erythrocyte distribution width (RBC) [Ratio] 14.9 % High 11.7-14.4 [facility] Comment on above: Performed By: #### C BC1 #### [facility] [address] [place] [address] Hematocrit (Bld) [Volume fraction] 35.8 % Normal 34.1-44.9 [facility] Comment on above: Performed By: #### C BC1 #### [facility] [address] [place] [address] Hemoglobin (Bld) [Mass/Vol] 11.1 g/dL Low 11.2-15.7 [facility] Comment on above: Performed By: #### C BC1 #### [facility] [address] [place] [address] MCH (RBC) [Entitic mass] 32.0 pg Normal 25.6-32.2 [facility] Comment on above: Performed By: #### C BC1 #### [facility] [address] [place] [address] MCHC (RBC) [Mass/Vol] 31.0 % Low 31.6-34.8 [facility] Comment on above: Performed By: #### C BC1 #### [facility] [address] [place] [address] MCV (RBC) [Entitic vol] 103.2 fL High 79.4-94.8 [facility] Comment on above: Performed By: #### C BC1 #### [facility] [address] [place] [address] Platelet mean volume (Bld) [Entitic vol] 10.1 fL Normal 9.4-12.3 [facility] Comment on above: Performed By: #### C BC1 #### [facility] [address] [place] [address] Platelets (Bld) [#/Vol] 218 thou/cmm Normal 182-369 [facility] Comment on above: Performed By: #### C BC1 #### [facility] [address] [place] [id number] RBC (Bld) [#/Vol] 3.47 mil/cmm Low 3.93-5.22 [facility] Comment on above: Performed By: #### C BC1 #### [facility] [address] [place] [address] RDW SD 57.1 fl High 36.4-46.3 [facility] Comment on above: Performed By: #### C BC1 #### [facility] [address] [place] [id number] WBC (Bld) [#/Vol] 15.81 thou/cmm High 3.98-10.04 [facility] Comment on above: Performed By: #### C BC1 #### [facility] [address] [place] [address] MDRD GFRon 10-07-2019 GFR/1.73 sq M predicted among non-blacks MDRD (S/P/Bld) [Vol rate/Area] mL/min/{1.73_m2} Normal >60mL/min/1 .73m2 [facility] Comment on above: Result Comment: If t he patient is , multiply the result by 1.210. Performed By: #### G FR #### [facility] [address] [place] [address] XR CHEST 2V FRONTAL/LATon XR CHEST 2V FRONTAL/LAT * * *Final Repor t* * * DATE OF EXAM: Oct 07 2019 12:39PM AWX [id number] - XR CHEST 2V FRONTAL/LAT / PROCEDURE REASON: Malignant neoplasm of urinary bladder, unspecified site (HCC) * * * * Physician Interpretation * * * * EXAMINATION: CHEST RADIOGRAPH (2 VIEW FRONTAL & LATERAL) CLINICAL HISTORY: Malignant neoplasm of urinary bladder, unspecified site (HCC) MQ: [id number]_6 EXAM DATE/TIME: 10/07/2019 12:39 PM COMPARISON: No relevant prior studies available. RESULT: Lines, tubes, and devices: A Mediport overlies right chest wall with its tip in the SVC. Lungs and pleura: No consolidation. No lung mass. No pleural effusion. No pneumothorax. Cardiomediastinal silhouette: Normal cardiomediastinal silhouette. Bones and soft tissues: Unremarkable. IMPRESSION: No acute radiographic abnormality. Projector Booth Operator: LAKEISHA Transcribe Date/Time: Oct 07 2019 12:47P Dictated by : ROSAMARIA SARGENT MD This examination was interpreted and the report reviewed and electronically signed by: ROSAMARIA SARGENT MD on Oct 07 2019 12:47PM EST Normal [facility] IR NEPHROSTOGRAM EXISTING RI GHT W/GUIDEon 10-01-2019 IR NEPHROSTOGRAM EXISTING RIGHT W/GUIDE ORIGINAL PROCEDURES: 1. Nephrostogram with percutaneous nephrostomy tube removal under fluoroscopy LATERALITY: RIGHT FORESTRY TREE PRUNER: Iva Liu PA-C CLINICAL HISTORY: HYDRONEPHROSIS COMPARISON: None MATERIALS: Bentson wire CONTRAST: 1 ml Omni 300 FLUORO: 0.1 minutes AIR KERMA DOSE: 6.81 mGy PROCEDURE: The procedure, risks, and alternatives, were discussed and all questions were answered. Informed consent obtained. Accompanying paperwork was verified for accuracy. Directed history and physical exam performed prior to the procedure. Medication reconciliation performed by nursing personnel. Procedure was performed using a hat, cap, mask, sterile gown, sterile gloves, a large sterile sheet, hand hygiene and hospital approved cutaneous antisepsis. The patient was positioned on the table and prepped and draped in usual sterile fashion. A critical pause was performed with assisting personnel just prior to the procedure with the patient's identity confirmed using 2 identifiers, confirming site and side. Propagator image demonstrates the nephrostomy tube completely pulled outside of the RIGHT kidney. Contrast injection through the catheter demonstrates the nephrostomy tube outside of the kidney, with no intrarenal filling. After cutting the hub, the catheter was removed over the wire. The string was removed in its entirety. No bleeding was evident from the access site. A sterile dressing was placed. The patient will need a new percutaneous RIGHT nephrostomy tube insertion. An appointment was offered to the patient for 10/01/2019, however the patient would like to have this procedure performed closer to home, preferably at [facility] again. Dr. Marino was notified of these results. COMPLICATIONS: None EBL: None CONDITION: Stable. IMPRESSION: 1. RIGHT nephrostomy tube removal due to positioning outside the kidney. 2. Patient will require new percutaneous nephrostomy tube insertion. The procedure was performed by Iva Liu PA-C. Interpreted By: Vincent Abdi Preliminary Report By: Iva Liu PA-C Electronically Signed By: Vincent Abdi Dictated Date: 10/01/2019 5:24:17 PM Prelim Date: 10/01/2019 5:35:50 PM Sign Date: 10/01/2019 8:00:07 PM Ordering Provider:Stuart Marino [facility] ([place]) CURjonathan 08-25-2019 CUR . MICRO - Microbiology PROCEDURE: Urine Culture [*1] SOURCE: Urine, Clean Catch BODY SITE: COLLECTED DATE/TIME: 08/23/2019 18:25 EST RECEIVED DATE/TIME: 08/24/2019 15:09 EST START DATE/TIME: 08/24/2019 15:09 EST FREE TEXT SOURCE: FINAL REPORTS Final Report [] Verified Date/Time/Personnel: 08/25/2019 13:57 EST 50,000 - 100,000 cfu/ml Multiple bacterial morphotypes present. Probable Contamination. Suggest recollection if clinically indicated. Performing Locations *1: This test was performed at: [address], [address] [place] [address]) Comment on above: Performed By: #### C UR #### [place] [address] .Auto Diffon 08-23-2019 Ammonia (P) [Mass/Vol] 1.30 10 3/mcL High 0.15-1.00 [facility] ([place]) Comment on above: Performed By: #### C HOWARD GALEANA ANEU #### [address] [address] Basophils (Bld) [#/Vol] 0.10 10 3/mcL Normal 0.00-0.19 [facility]) Comment on above: Performed By: #### C HOWARD GALEANA, ANEU #### [address] [address] Basophils/100 WBC (Bld) 0.8 % Normal 0.0-2.5 A [facility] ([place]) Comment on above: Performed By: #### HOWARD TA, AARON #### [address] [address] Eosinophils (Bld) [#/Vol] 0.00 10 3/mcL Normal 0.00-0.40 [facility] ([place]) Comment on above: Performed By: #### HOWARD TA, ANEU #### [place] [address] [address] Eosinophils/100 WBC (Bld) 0.2 % Normal 0.0-7.0 [facility] ([place]) Comment on above: Performed By: #### HOWARD TA, ANEU #### [address] [address] Lymphocytes (Bld) [#/Vol] 1.90 10 3/mcL Normal 0.77-3.85 [facility] ([place]) Comment on above: Performed By: #### HOWARD TA, ANEU #### [place] [address] [address] Lymphocytes/100 WBC (Bld) 11.7 % Normal 10.0-50.0 [facility] ([place]) Comment on above: Performed By: #### HOWARD TA, ANEU #### [address] [address] Monocytes/100 WBC (Bld) 7.8 % Normal 1.7-13.0 A [facility] ([place]) Comment on above: Performed By: #### HOWARD TA, ANEU #### [place] [address] [address] Neutrophils/100 WBC (Bld) 79.5 % Normal 37.0-80.0 [facility] ([place]) Comment on above: Performed By: #### HOWARD TA, ANEU #### [place] [address] [address] .GFRon 08-23-2019 GFR Non- 71 ml/min/1.73sqm Normal [facility] ([place]) Comment on above: Result Comment: GFR Population mean for , Non- Americans Ages 20-29 = 116 mL/min/1.73 sq.m. Ages 30-39 = 107 mL/min/1.73 sq.m. Ages 40-49 = 99 mL/min/1.73 sq.m. Ages 50-59 = 93 mL/min/1.73 sq.m. Ages 60-69 = 85 mL/min/1.73 sq.m. Ages 70+ = 75 mL/min/1.73 sq.m. Chronic Kidney Disease: Less than 60 mL/min/1.73 square meters End Stage Renal Disease: Less than 15 mL/min/1.73 square meters Performed By: #### SONIYA MCFARLANE, CMP #### [address] [address] GFR 86 ml/min/1.73sqm Normal [facility] ([place]) Comment on above: Result Comment: GFR Population mean for , Non- Americans Ages 20-29 = 116 mL/min/1.73 sq.m. Ages 30-39 = 107 mL/min/1.73 sq.m. Ages 40-49 = 99 mL/min/1.73 sq.m. Ages 50-59 = 93 mL/min/1.73 sq.m. Ages 60-69 = 85 mL/min/1.73 sq.m. Ages 70+ = 75 mL/min/1.73 sq.m. Chronic Kidney Disease: Less than 60 mL/min/1.73 square meters End Stage Renal Disease: Less than 15 mL/min/1.73 square meters Performed By: #### SONIYA MCFARLANE, CMP #### [address] [address] .NEUABSon 08-23-2019 Neutrophils (Bld) [#/Vol] 13.00 10 3/mcL High 2.85-6.16 [facility] ([place]) Comment on above: Performed By: #### HOWARD TA ANEU #### [address] [address] .Urinalysis Microscopic (AO) on 08-23-2019 RBC (U) [#/Vol] 10-15 Abnormal None Seen [facility] ([place]) Comment on above: Performed By: #### U A UAMICAO #### [facility] [address] [place] [address] UA Bacteria 2+ /hpf Abnormal [facility] ([place]) Comment on above: Performed By: #### U A, UAMICAO #### [facility] [address] [place] [address] UA Squam Epithelial 5-10 Abnormal None Seen [facility] ([place]) Comment on above: Performed By: #### U A, UAMICAO #### [facility] [address] [place] [address] UA WBC 15-25 Abnormal None Seen [facility] ([place] Comment on above: Performed By: #### Yahaira Dao UAMICAO #### [address] [address] CBCon 08-23-2019 Erythrocyte distribution width (RBC) [Ratio] 19.9 % High 11.5-14.5 [facility] ([place]) Comment on above: Performed By: #### C HOWARD GALEANA ANEU #### [address] [address] Hematocrit (Bld) [Volume fraction] 27.3 % Low 37.0-47.0 [facility] ([place]) Comment on above: Performed By: #### C HOWARD GALEANA ANEU #### [place] [address] [address] Hemoglobin (Bld) [Mass/Vol] 8.9 G/dL Low 12.0-16.0 [facility] ([place]) Comment on above: Performed By: #### C HOWARD GALEANA, ANEU #### [place] [address] [address] MCH (RBC) [Entitic mass] 31.8 pg High 27.0-31.2 [facility] ([place]) Comment on above: Performed By: #### C HOWARD GALEANA, ANEU #### [place] [address] [address] MCHC (RBC) [Mass/Vol] 32.7 G/dL Low 33.0-37.0 [facility] ([place]) Comment on above: Performed By: #### HOWARD TA, AARON #### [place] [address] [address] MCV (RBC) [Entitic vol] 97.2 fL High 80.0-94.0 A [facility] ([place]) Comment on above: Performed By: #### HOWARD TA, ANEU #### [place] [address] [address] Platelet mean volume (Bld) [Entitic vol] 8.1 fL Normal 7.4-10.4 [facility] ([place]) Comment on above: Performed By: #### HOWARD TA, ANEU #### [address] [address] Platelets (Bld) [#/Vol] 251 10 3/mcL Normal 130-400 [facility] ([place]) Comment on above: Performed By: #### HOWARD TA, ANEU #### [place] [address] [address] RBC (Bld) [#/Vol] 2.81 10 6/mcL Low 4.20-5.40 [facility] ([place]) Comment on above: Performed By: #### HOWARD TA, ANEU #### [address] [address] WBC (Bld) [#/Vol] 16.40 10 3/mcL High 4.60-10.80 [facility] ([place]) Comment on above: Performed By: #### HOWARD TA, ANEU #### [address] [address] CMPon 08-23-2019 Albumin [Mass/Vol] 2.2 G/dL Low 3.4-4.8 [facility] ([place]) Comment on above: Performed By: #### G FR, LIP, CMP #### [address] [address] Albumin/Globulin [Mass ratio] 0.5 {ratio} Low 1.1-2.5 [facility] ([place]) Comment on above: Performed By: #### G FR, LIP, CMP #### [address] [address] ALP [Catalytic activity/Vol] 104 U/L Normal 40-135 [facility] ([place] Comment on above: Performed By: #### G FR, LIP, CMP #### [address] [address] ALT [Catalytic activity/Vol] 13 U/L Normal 10-35 [facility] ([place] Comment on above: Performed By: #### G FR, LIP, CMP #### [address] [address] AST [Catalytic activity/Vol] 14 U/L Normal 10-40 [facility] ([place] Comment on above: Performed By: #### G FR, LIP, CMP #### [address] [address] Bili Total 0.3 mg/dL Normal 0.2-1.0 [facility] ([place]) Comment on above: Performed By: #### G FR, LIP, CMP #### [address] [address] Calcium [Mass/Vol] 8.4 mg/dL Normal 8.4-10.2 [facility] ([place]) Comment on above: Performed By: #### G FR, LIP, CMP #### [address] [address] Chloride [Moles/Vol] 102 mmol/L Normal 98-107 [facility] [place] Comment on above: Performed By: #### G FR, LIP, CMP #### [address] [address] CO2 [Moles/Vol] 26 mmol/L Normal 23-31 [facility] ([place] Comment on above: Performed By: #### G FR, LIP, CMP #### [address] [address] Electrolyte Balance 8.0 mEq/L Normal [facility] ([place]) Comment on above: Performed By: #### G FR, LIP, CMP #### [address] [address] Globulin (S) [Mass/Vol] 4.6 G/dL Normal A [facility] ([place]) Comment on above: Performed By: #### Sonia FIGUEROA LIP, CMP #### [address] [address] Glucose [Mass/Vol] 110 mg/dL Normal 80-115 [facility] ([place]) Comment on above: Performed By: #### Sonia FIGUEROA LIP, CMP #### [address] [address] Potassium [Moles/Vol] 4.1 mmol/L Normal 3.5-5.1 [facility] ([place]) Comment on above: Performed By: #### Sonia FIGUEROA LIP, CMP #### [address] [address] Protein [Mass/Vol] 6.8 G/dL Normal 6.4-8.2 [facility] ([place] Comment on above: Performed By: #### Sonia FIGUEROA LIP, CMP #### [address] [address] Sodium [Moles/Vol] 136 mmol/L Normal 136-145 [facility] ([place] Comment on above: Performed By: #### Sonia FIGUEROA LIP, CMP #### [address] [address] Urea nitrogen [Mass/Vol] 11 mg/dL Normal 7-18 [facility] ([place]) Comment on above: Performed By: #### Sonia FIGUEROA LIP, CMP #### [address] [address] Urea nitrogen/Creatinine [Mass ratio] 14 ratio Normal 7-27 [facility] ([place]) Comment on above: Performed By: #### Sonia FIGUEROA LIP, CMP #### [address] [address] Creatinine [Mass/Vol] 0.80 mg/dL Normal 0.55-1.02 [facility] ([place]) Comment on above: Result Comment: Call ed result to [place] in ER @ 08/23/2019 16:50:32 EST Performed By: #### G SONIYA FIGUEROA, CMP #### [place] [address] CT ABD/PELVIS W/ IV CONTRAST ONLYon 08-23-2019 CT ABD/PELVIS W/ IV CONTRAST ONLY ORIGINAL CT ABD/PELVIS W/ IV CONTRAST ONLY CLINICAL STATEMENT: Abdominal pain. Bladder carcinoma COMPARISON: 04/12/2019 TECHNIQUE: Axial images were obtained from the lung bases through the pubic symphysis after the administration of IV contrast. Coronal and sagittal reformatted images were generated from the axial dataset. This exam was performed according to our departmental dose optimization program, and includes the following measures where applicable: automated exposure control, adjustment of the mAs and/or kVp according to patient size and/or exam, and an iterative reconstruction algorithm. FINDINGS: The included lung bases are clear. There is no visible pleural or pericardial effusion. The heart is normal in size. The liver, spleen, and pancreas are within normal limits. The gallbladder is normal. The kidneys enhance symmetrically. The left hydroureter and hydronephrosis is increased. Enlargement of the left adrenal gland is stable. There is a filling defect in the duodenum appears to enhance, this measures approximately 18 mm, this is seen well on series 601 image 49 and series 2 image 34. The large and small bowel demonstrate no obstruction. The appendix is normal. No free intraperitoneal fluid or gas is identified. The aorta is normal in caliber. There is moderate atherosclerosis of the larger arteries. 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 There is no lymphadenopathy. The uterus is surgically absent. The adnexa are normal. Masslike area in the region of the urinary bladder is decreased in size. There is no acute fracture or aggressive osseous lesion. IMPRESSION: There is been interval worsening of left-sided hydronephrosis and hydroureter, this is of indeterminate and may be related to volume status. The mass in the region of the urinary bladder is decreased in size. Bony defect within the duodenum pelvis concerning for a mass or polyp, recommend endoscopy. Interpreted By: Leonardo Rosales MD Preliminary Report By: Leonardo Rosales MD Electronically Signed By: Leonardo Rosales MD Dictated Date: 08/23/2019 5:24:15 PM Prelim Date: 08/23/2019 5:24:15 PM Sign Date: 08/23/2019 5:37:33 PM Ordering Provider:Kostas Farah Normal [facility] ([place]) LIPon 08-23-2019 Lipase Level 112 U/L Normal 73-393 [facility] ([place]) Comment on above: Performed By: #### G , SONIYA, CMP #### [address] [address] UAon 08-23-2019 Color (U) Yellow Normal [facility] ([place]) Comment on above: Performed By: #### U A, UAMICAO #### [place] [address] Glucose (U) [Mass/Vol] Negative Normal Negative [facility] ([place]) Comment on above: Performed By: #### U A, UAMICAO #### [place] [address] Ketones Ql (U) Negative Normal Negative [facility] ([place] Comment on above: Performed By: #### U A, UAMICAO #### [place] [address] UA Appear Slightly Cloudy Abnormal Clear [facility] ([place] Comment on above: Performed By: #### U A, UAMICAO #### [place] [address] UA Blood Large Abnormal Negative [facility] ([place] Comment on above: Performed By: #### U A, UAMICAO #### [place] [address] UA Leuk Est Large Abnormal Negative [facility] ([place] Comment on above: Performed By: #### U A, UAMICAO #### [place] [id number] UA Nitrite Positive Abnormal Negative [facility] ([place] Comment on above: Performed By: #### U A, UAMICAO #### [place] [address] UA pH 8.5 Abnormal 5.0 - 8.0 [facility] ([place]) Comment on above: Performed By: #### U A, UAMICAO #### [address] [address] UA Protein >=300 Abnormal Negative [facility] ([place] Comment on above: Performed By: #### U A, UAMICAO #### [place] [address] UA Spec Grav 1.015 Normal 1.015-1.025 [facility] ([place] Comment on above: Performed By: #### U A, UAMICAO #### [place] [address] UA Specimen Type Clean Catch Normal [facility] ([place] Comment on above: Performed By: #### U A, UAMICAO #### [place] [address] UA Urobilinogen 0.2 E.U./dL Normal 0.2-1.0 [facility] ([place]) Comment on above: Performed By: #### U A, UAMICAO #### [place] [address] Urobilinogen Qn (U) Negative Normal Negative [facility] ([place]) Comment on above: Performed By: #### U A, UAMICAO #### [place] [address] No Panel Informationon 08-02 Reactive Lymphocytes 1+ [facility] Review by pathologiston 07-06 Pathologist review Fly (Unsp spec) [Interp] Reviewed [facility] Comment on above: Previous reported re sult: Nabila morgan Edited by: GONZALO on 08/03/19:1337Pancytopenia. Neutropenia. Macrocytic anemia. Marked Thrombocytopenia.Clinical correlation necessary.Cirilo Huynh D.O. 08/03/19 AMENDED REPORT 08/03/19 1337 PATH REV previously reported as: Nabila morgan No Panel Informationon 07-26 Differential Comment SCANNED [facility] Thin prep Papanicolaou smear with manual screeningon 07-26-2019 Thin prep Papanicolaou smear with manual screening 1+ [facility] Clostridioides difficile nuc leic acid assay by PCRon 07-20-2019 C. difficile DNA CAROLA+probe Ql (Unsp spec) [facility] C. difficile DNA CAROLA+probe Ql (Unsp spec) [facility] Clostridium difficile detect ion by polymerase chain reactionon 07-20-2019 C. difficile DNA CAROLA+probe Ql (Unsp spec) [facility] EP Panelon 07-20-2019 Gastrointestinal pathogens panel CAROLA+probe (Stl) [facility] Gastrointestinal pathogens panel CAROLA+probe (Stl) [facility] Stool enteric pathogen panel by probe and target amplification methodon 07-20-2019 Gastrointestinal pathogens panel CAROLA+probe (Stl) [facility] Hypochromatic red blood cell detectionon 07-13-2019 Hypochromia Ql (Bld) 2+ [facility] Culture, urineon 07-08-2019 Bacteria identified Cx Nom (U) Positive [facility] Culture, urineon 07-07-2019 Bacteria identified Cx Nom (U) Positive Abnormal [facility] Basophil percentageon 2018 Basophil percentage 3.2 mg/dL 2.5-4.9 [facility] Blood platelet morphology de termination (nominal result)on 06-29-2019 Platelet morphology finding Nom (Bld) LARGE [facility] RBC morphologyon 06-29-2019 RBC morphology finding Nom (Bld) N CHROM NORMAL NORM C&C [facility] No Panel Informationon 05-18 Atypical Lymphocytes 1+ % [facility] Serum or plasma uric acid me asurement (mass/volume)on 05-03-2019 Urate [Mass/Vol] 6.5 mg/dL High 2.6-6.0 [facility] Comment on above: The drugs N-Acetylcy steine and Metamizole may falsely depress this assay. Culture, urine Bacteria identified Cx Nom (U) Positive [facility] Work Phone: No Panel Information Enteric Bacteriology [facility] Work Phone: Vital Signs Date Time Vital Sign Value Performing Clinician Faci litfreddy 02-28-2025 19:05-0400 Body temperature 99 [degF] Dr. Parminder Guajardo DO Work Phone: [facility] 02-28-2025 19:05-0400 Diastolic blood pressure 76 mm[Hg] Dr. Parminder Guajardo DO Work Phone: [facility] 02-28-2025 19:05-0400 Heart rate 78 /min Dr. Parminder Guajardo DO Work Phone: [facility] 02-28-2025 19:05-0400 Respiratory rate 17 /min Dr. Parminder Guajardo DO Work Phone: [facility] 02-28-2025 19:05-0400 SaO2% (BldA) [Mass fraction] 94 % Dr. Parminder Guajardo DO Work Phone: [facility] 02-28-2025 19:05-0400 Systolic blood pressure 111 mm[Hg] Dr. Parminder Guajardo DO Work Phone: [facility] 02-28-2025 13:18-0400 Body height 149.[address] Parminder Guajardo DO Work Phone: [facility] 02-28-2025 11:46-0400 Body temperature 98.8 [degF] Dr. Parminder Guajardo DO Work Phone: [facility] 02-28-2025 11:46-0400 Diastolic blood pressure 68 mm[Hg] Dr. Parminder Guajardo DO Work Phone: [facility] 02-28-2025 11:46-0400 Heart rate 80 /min Dr. Parminder Guajardo DO Work Phone: [facility] 02-28-2025 11:46-0400 Respiratory rate 18 /min Dr. Parminder Guajardo DO Work Phone: [facility] 02-28-2025 11:46-0400 SaO2% (BldA) [Mass fraction] 100 % Dr. Parminder Guajardo DO Work Phone: [facility] 02-28-2025 11:46-0400 Systolic blood pressure 128 mm[Hg] Dr. Parminder Guajardo DO Work Phone: [facility] 02-08-2025 13:32-0400 Body mass index (BMI) [Ratio] 30.7 kg/m2 Dr. Parminder Guajardo DO Work Phone: [facility] 02-08-2025 13:32-0400 Body temperature 97.4 [degF] Dr. Parminder Guajardo DO Work Phone: [facility] 02-08-2025 13:32-0400 Body weight 68.[address] Parminder Guajardo DO Work Phone: [facility] 02-08-2025 13:32-0400 Diastolic blood pressure 63 mm[Hg] Dr. Parminder Guajardo DO Work Phone: [facility] 02-08-2025 13:32-0400 Heart rate 89 /min Dr. Parminder Guajardo DO Work Phone: [facility] 02-08-2025 13:32-0400 Respiratory rate 16 /min Dr. Parminder Guajardo DO Work Phone: [facility] 02-08-2025 13:32-0400 SaO2% (BldA) [Mass fraction] 96 % Dr. Parminder Guajardo DO Work Phone: [facility] 02-08-2025 13:32-0400 Systolic blood pressure 107 mm[Hg] Dr. Parminder Guajardo DO Work Phone: [facility] 01-11-2025 09:37-0400 Body height 149.[address] Parminder Guajardo DO Work Phone: [facility] 01-11-2025 09:37-0400 Body temperature 98.6 [degF] Dr. Parminder Guajardo DO Work Phone: [facility] 01-11-2025 09:37-0400 Diastolic blood pressure 61 mm[Hg] Dr. Parminder Guajardo DO Work Phone: [facility] 01-11-2025 09:37-0400 Heart rate 80 /min Dr. Parminder Guajardo DO Work Phone: [facility] 01-11-2025 09:37-0400 Respiratory rate 18 /min Dr. Parminder Guajardo DO Work Phone: [facility] 01-11-2025 09:37-0400 SaO2% (BldA) [Mass fraction] 100 % Dr. Parminder Guajardo DO Work Phone: [facility] 01-11-2025 09:37-0400 Systolic blood pressure 116 mm[Hg] Dr. Parminder Guajardo DO Work Phone: [facility] 11-15-2024 16:36-0400 Body height 149.[address] Parminder Guajardo DO Work Phone: [facility] 11-15-2024 16:36-0400 Body mass index (BMI) [Ratio] 35.3 kg/m2 Dr. Parminder Guajardo DO Work Phone: [facility] 11-15-2024 16:36-0400 Body temperature 98.4 [degF] Dr. Parminder Guajardo DO Work Phone: [facility] 11-15-2024 16:36-0400 Body weight 79.[address] Parminder Guajardo DO Work Phone: [facility] 11-15-2024 16:36-0400 Diastolic blood pressure 74 mm[Hg] Dr. Parminder Guajardo DO Work Phone: [facility] 11-15-2024 16:36-0400 Heart rate 85 /min Dr. Parminder Guajardo DO Work Phone: [facility] 11-15-2024 16:36-0400 Respiratory rate 18 /min Dr. Parminder Guajardo DO Work Phone: [facility] 11-15-2024 16:36-0400 SaO2% (BldA) [Mass fraction] 100 % Dr. Parminder Guajardo DO Work Phone: [facility] 11-15-2024 16:36-0400 Systolic blood pressure 148 mm[Hg] Dr. Parminder Guajardo DO Work Phone: [facility] 11-12-2024 10:12-0400 Body height 149.[address] Parminder Guajardo DO Work Phone: [facility] 11-12-2024 10:12-0400 Body mass index (BMI) [Ratio] 35.5 kg/m2 Dr. Parminder Guajardo DO Work Phone: [facility] 11-12-2024 10:12-0400 Body temperature 97.5 [degF] Dr. Parminder Guajardo DO Work Phone: [facility] 11-12-2024 10:12-0400 Body weight 79.[address] Parminder Guajardo DO Work Phone: [facility] 11-12-2024 10:12-0400 Diastolic blood pressure 79 mm[Hg] Dr. Parminder Guajardo DO Work Phone: [facility] 11-12-2024 10:12-0400 Heart rate 84 /min Dr. Parminder Guajardo DO Work Phone: [facility] 11-12-2024 10:12-0400 Respiratory rate 22 /min Dr. Parminder Guajardo DO Work Phone: [facility] 11-12-2024 10:12-0400 SaO2% (BldA) [Mass fraction] 100 % Dr. Parminder Guajardo DO Work Phone: [facility] 11-12-2024 10:12-0400 Systolic blood pressure 126 mm[Hg] Dr. Parminder Guajardo DO Work Phone: [facility] 07-23-2024 13:47-0500 Body mass index (BMI) [Ratio] 39.18 kg/m2 Nain Clutter PA-C Work Phone: [facility] 07-23-2024 13:47-0500 Body temperature 97.7 [degF] Nain Clutter PA-C Work Phone: [facility] 07-23-2024 13:47-0500 Body weight 88 kg Nain Clutter PA-C Work Phone: [facility] 07-23-2024 13:47-0500 Diastolic blood pressure 65 mm[Hg] Nain Clutter PA-C Work Phone: [facility] 07-23-2024 13:47-0500 Heart rate 81 /min Nain Clutter PA-C Work Phone: [facility] 07-23-2024 13:47-0500 Respiratory rate 26 /min Nain Clutter PA-C Work Phone: [facility] 07-23-2024 13:47-0500 SaO2% (BldA) [Mass fraction] 97 % Nain Clutter PA-C Work Phone: [facility] 07-23-2024 13:47-0500 Systolic blood pressure 114 mm[Hg] Nain Clutter PA-C Work Phone: [facility] 08-15-2023 10:49-0500 Body height 149.[address] Parminder Guajardo Work Phone: [facility] 08-15-2023 10:49-0500 Body mass index (BMI) [Ratio] 40.4 kg/m2 Dr. Parminder Guajardo Work Phone: [facility] 08-15-2023 10:49-0500 Body temperature 97 [degF] Dr. Parminder Guajardo Work Phone: [facility] 08-15-2023 10:49-0500 Body weight 90.[address] Parminder Guajardo Work Phone: [facility] 08-15-2023 10:49-0500 Diastolic blood pressure 76 mm[Hg] Dr. Parminder Guajardo Work Phone: [facility] 08-15-2023 10:49-0500 Heart rate 82 /min Dr. Parminder Guajardo Work Phone: [facility] 08-15-2023 10:49-0500 Respiratory rate 18 /min Dr. Parminder Guajardo Work Phone: [facility] 08-15-2023 10:49-0500 SaO2% (BldA) [Mass fraction] 97 % Dr. Parminder Guajardo Work Phone: [facility] 08-15-2023 10:49-0500 Systolic blood pressure 132 mm[Hg] Dr. Parminder Guajardo Work Phone: [facility] 06-04-2023 13:26-0400 Body mass index (BMI) [Ratio] 40.6 kg/m2 Dr. Parminder Guajardo Work Phone: [facility] 06-04-2023 13:26-0400 Body temperature 98.3 [degF] Dr. Parminder Guajardo Work Phone: [facility] 06-04-2023 13:26-0400 Body weight 91.[address] Parminder Guajardo Work Phone: [facility] 06-04-2023 13:26-0400 Diastolic blood pressure 80 mm[Hg] Dr. Parminder Guajardo Work Phone: [facility] 06-04-2023 13:26-0400 Heart rate 80 /min Dr. Parminder Guajardo Work Phone: [facility] 06-04-2023 13:26-0400 Respiratory rate 18 /min Dr. Parminder Guajardo Work Phone: [facility] 06-04-2023 13:26-0400 SaO2% (BldA) [Mass fraction] 99 % Dr. Parminder Guajardo Work Phone: [facility] 06-04-2023 13:26-0400 Systolic blood pressure 156 mm[Hg] Dr. Parminder Guajardo Work Phone: [facility] 11-21-2022 15:27-0400 Body height 149.[address] Parminder Guajardo Work Phone: [facility] 11-21-2022 15:27-0400 Body mass index (BMI) [Ratio] 42 kg/m2 Dr. Parminder Guajardo Work Phone: [facility] 11-21-2022 15:27-0400 Body temperature 98.2 [degF] Dr. Parminder Guajardo Work Phone: [facility] 11-21-2022 15:27-0400 Body weight 94.[address] Parminder Guajardo Work Phone: [facility] 11-21-2022 15:27-0400 Diastolic blood pressure 82 mm[Hg] Dr. Parminder Guajardo Work Phone: [facility] 11-21-2022 15:27-0400 Heart rate 80 /min Dr. Parminder Guajardo Work Phone: [facility] 11-21-2022 15:27-0400 Respiratory rate 22 /min Dr. Parminder Guajardo Work Phone: [facility] 11-21-2022 15:27-0400 SaO2% (BldA) [Mass fraction] 96 % Dr. Parminder Guajardo Work Phone: [facility] 11-21-2022 15:27-0400 Systolic blood pressure 152 mm[Hg] Dr. Parminder Guajardo Work Phone: [facility] 09-26-2022 09:09-0500 Diastolic blood pressure 77 mm[Hg] Dr. Parminder Guajardo Work Phone: [facility] 09-26-2022 09:09-0500 Heart rate 62 /min Dr. Parminder Guajardo Work Phone: [facility] 09-26-2022 09:09-0500 Respiratory rate 15 /min Dr. Parminder Guajardo Work Phone: [facility] 09-26-2022 09:09-0500 SaO2% (BldA) [Mass fraction] 93 % Dr. Parminder Guajardo Work Phone: [facility] 09-26-2022 09:09-0500 Systolic blood pressure 168 mm[Hg] Dr. Parminder Guajardo Work Phone: [facility] 09-26-2022 07:37-0500 Body mass index (BMI) [Ratio] 37.2 kg/m2 Dr. Parminder Guajardo Work Phone: [facility] 09-26-2022 07:37-0500 Body temperature 97 [degF] Dr. Parminder Guajardo Work Phone: [facility] 09-26-2022 07:37-0500 Body weight 78.[address] Parminder Guajardo Work Phone: [facility] 09-26-2022 06:39-0500 Body height 144.[address] Parminder Guajardo Work Phone: [facility] 09-10-2022 15:29-0500 Body height 147.[address] Parminder Guajardo Work Phone: [facility] 09-10-2022 15:29-0500 Body mass index (BMI) [Ratio] 43 kg/m2 Dr. Parminder Guajardo Work Phone: [facility] 09-10-2022 15:29-0500 Body weight 93.[address] Parminder Guajardo Work Phone: [facility] 08-28-2022 15:22-0500 Body mass index (BMI) [Ratio] 41.3 kg/m2 Dr. Parminder Guajardo Work Phone: [facility] 08-28-2022 15:22-0500 Body weight 92.[address] Parminder Guajardo Work Phone: [facility] 08-28-2022 15:22-0500 Diastolic blood pressure 75 mm[Hg] Dr. Parminder Guajardo Work Phone: [facility] 08-28-2022 15:22-0500 Heart rate 77 /min Dr. Parminder Guajardo Work Phone: [facility] 08-28-2022 15:22-0500 Respiratory rate 18 /min Dr. Parminder Guajardo Work Phone: [facility] 08-28-2022 15:22-0500 SaO2% (BldA) [Mass fraction] 96 % Dr. Parminder Guajardo Work Phone: [facility] 08-28-2022 15:22-0500 Systolic blood pressure 140 mm[Hg] Dr. Parminder Guajardo Work Phone: [facility] 08-15-2022 15:03-0500 Body height 149.[address] Parminder Guajardo Work Phone: [facility] 08-15-2022 14:51-0500 Body mass index (BMI) [Ratio] 41.3 kg/m2 Dr. Parminder Guajardo Work Phone: [facility] 08-15-2022 14:51-0500 Body temperature 98.6 [degF] Dr. Parminder Guajardo Work Phone: [facility] 08-15-2022 14:51-0500 Body weight 92.[address] Parminder Guajardo Work Phone: [facility] 08-15-2022 14:51-0500 Diastolic blood pressure 79 mm[Hg] Dr. Parminder Guajardo Work Phone: [facility] 08-15-2022 14:51-0500 Heart rate 7 /min Dr. Parminder Guajardo Work Phone: [facility] 08-15-2022 14:51-0500 Respiratory rate 18 /min Dr. Parminder Guajardo Work Phone: [facility] 08-15-2022 14:51-0500 SaO2% (BldA) [Mass fraction] 97 % Dr. Parminder Guajardo Work Phone: [facility] 08-15-2022 14:51-0500 Systolic blood pressure 138 mm[Hg] Dr. Parminder Guajardo Work Phone: [facility] 05-06-2022 15:33-0400 Body height 149.[address] Parminder Guajardo Work Phone: [facility] Work Phone: 05-06-2022 15:27-0400 Body mass index (BMI) [Ratio] 40 kg/m2 Dr. Parminder Guajardo Work Phone: [facility] 05-06-2022 15:27-0400 Body temperature 98.6 [degF] Dr. Parminder Guajardo Work Phone: [facility] 05-06-2022 15:27-0400 Body weight 89.[address] Parminder Guajardo Work Phone: [facility] 05-06-2022 15:27-0400 Diastolic blood pressure 76 mm[Hg] Dr. Parminder Guajardo Work Phone: [facility] 05-06-2022 15:27-0400 Heart rate 78 /min Dr. Parminder Guajardo Work Phone: [facility] 05-06-2022 15:27-0400 Respiratory rate 16 /min Dr. Parminder Guajardo Work Phone: [facility] 05-06-2022 15:27-0400 SaO2% (BldA) [Mass fraction] 96 % Dr. Parminder Guajardo Work Phone: [facility] 05-06-2022 15:27-0400 Systolic blood pressure 136 mm[Hg] Dr. Parminder Guajardo Work Phone: [facility] 04-17-2022 14:04-0400 Body mass index (BMI) [Ratio] 39.4 kg/m2 Dr. Parminder Guajardo Work Phone: [facility] Work Phone: 04-17-2022 14:04-0400 Body temperature 97.5 [degF] Dr. Parminder Guajardo Work Phone: [facility] Work Phone: 04-17-2022 14:04-0400 Body weight 88.[address] Parminder Guajardo Work Phone: [facility] Work Phone: 04-17-2022 14:04-0400 Diastolic blood pressure 77 mm[Hg] Dr. Parminder Guajardo Work Phone: [facility] Work Phone: 04-17-2022 14:04-0400 Heart rate 76 /min Dr. Parminder Guajardo Work Phone: [facility] Work Phone: 04-17-2022 14:04-0400 Respiratory rate 16 /min Dr. Parminder Guajarod Work Phone: [facility] Work Phone: 04-17-2022 14:04-0400 SaO2% (BldA) [Mass fraction] 98 % Dr. Parminder Guajardo Work Phone: [facility] Work Phone: 04-17-2022 14:04-0400 Systolic blood pressure 130 mm[Hg] Dr. Parminder Guajardo Work Phone: [facility] Work Phone: 01-18-2022 11:21-0400 Diastolic blood pressure 79 mm[Hg] Dr. Parmindre Guajardo Work Phone: [facility] Work Phone: 01-18-2022 11:21-0400 Heart rate 82 /min Dr. Parminder Guajardo Work Phone: [facility] Work Phone: 01-18-2022 11:21-0400 Systolic blood pressure 137 mm[Hg] Dr. Parminder Guajardo Work Phone: [facility] Work Phone: 01-18-2022 08:39-0400 Body mass index (BMI) [Ratio] 38.5 kg/m2 Dr. Parminder Guajardo Work Phone: [facility] Work Phone: 01-18-2022 08:39-0400 Body weight 86.[address] Parminder Guajardo Work Phone: [facility] Work Phone: 01-18-2022 08:39-0400 Respiratory rate 18 /min Dr. Parminder Guajardo Work Phone: [facility] Work Phone: 01-18-2022 08:39-0400 SaO2% (BldA) [Mass fraction] 99 % Dr. Parminder Guajardo Work Phone: [facility] Work Phone: 07-25-2020 12:48-0500 Body mass index (BMI) [Ratio] 34 kg/m2 Dr. Parminder Guajardo Work Phone: [facility] 07-25-2020 12:48-0500 Body temperature 98.3 [degF] Dr. Parminder Guajardo Work Phone: [facility] 07-25-2020 12:48-0500 Body weight 76.[address] Parminder Guajardo Work Phone: [facility] 07-25-2020 12:48-0500 Diastolic blood pressure 62 mm[Hg] Dr. Parminder Guajardo Work Phone: [facility] 07-25-2020 12:48-0500 Heart rate 69 /min Dr. Parminder Guajardo Work Phone: [facility] 07-25-2020 12:48-0500 Respiratory rate 16 /min Dr. Parminder Guajardo Work Phone: [facility] 07-25-2020 12:48-0500 SaO2% (BldA) [Mass fraction] 99 % Dr. Parminder Guajardo Work Phone: [facility] 07-25-2020 12:48-0500 Systolic blood pressure 97 mm[Hg] Dr. Parminder Guajardo Work Phone: [facility] Encounters Encounter Date Encounter Type Care Provider Facility Start: 02-28-2025 Evaluation and management of inpatient Dr. Jelani Dias DO -Progressive Care Unit Work Phone: Start: 02-28-2025 End: 02-28-[address] Parminder Guajardo DO Work Phone: -[facility] Start: 02-28-2025 End: 02-28-[address] Brian Stone MD -[facility] Work Phone: Start: 02-28-[address] Brian Stone MD -[facility] Start: 02-08-2025 [facility] Start: 01-11-2025 End: 01-11-[address] Brian Stone MD -[facility] Work Phone: Start: 01-11-2025 End: 01-11-[address] Parminder Guajardo DO Work Phone: [facility] Work Phone: Start: 01-11-[address] Brian Stone MD -[facility] Start: 12-29-2024 End: 12-29-[address] Parminder Guajardo DO Work Phone: [facility] Work Phone: Start: 12-29-2024 End: 12-29-[address] Brian Stone MD [facility] Work Phone: Start: 12-29-2024 End: 12-29-2024 ambulatory Brian Stone Facility:[facility] Start: 12-08-2024 Non-patient / Non-visit Dr. Tom GÓMEZ -[facility] Start: 12-08-2024 End: 12-08-[address] Parminder Guajardo DO Work Phone: [facility] Work Phone: Start: 12-08-2024 End: 12-08-[address] Albino Moreau MD -Cardiovascular Services Work Phone: Start: 12-08-2024 End: 12-08-2024 ambulatory [facility] Facility:[facility] Start: 11-25-2024 End: 11-25-2024 Non-patient / Non-visit Dr. Roscoe Nguyễn MD -[facility] Work Phone: Start: 11-25-2024 End: 11-25-[address] Parminder Guajardo DO Work Phone: [facility] Work Phone: Start: 11-25-2024 End: 11-25-[address] Albino Moreau MD -Pulmonary Services/Neurology Work Phone: Start: 11-25-2024 End: 11-25-2024 ambulatory [facility] Facility:[facility] Start: 11-15-2024 End: 11-15-[address] Brian Stone MD -[facility] Work Phone: Start: 11-15-2024 End: 11-15-2024 ambulatory Brian Stone Facility:[facility] Start: 11-12-2024 End: 11-12-[address] Albino Moreau MD -Medical Out Work Phone: Start: 11-12-2024 End: 11-12-[address] Parminder Guajardo DO Work Phone: [facility] Work Phone: Start: 07-23-2024 End: 07-23-2024 Subsequent hospital visit by physician X[facility] Work Phone: Radiology Comment on above: Acute cough [R05.1] Start: 07-23-2024 End: 07-26-2024 Telephone encounter Dallas Yin MSW Navigation Start: 07-23-2024 End: 07-23-2024 ambulatory PARMINDER GUAJARDO Facility:[facility] Start: 07-23-2024 End: 07-23-2024 Office outpatient new 30 minutes Nain Hernandez PA-C Work Phone: [facility] Comment on above: Acute cough (Primary Dx); Unable to care for self; Pneumonia of both lower lobes due to infectious organism Start: 05-25-2024 ambulatory Parminder Casandra Facility:[facility] Start: 04-30-2024 End: 04-30-2024 ambulatory Parminderteo Wallacer Facility:[facility] Start: 03-04-2024 ambulatory Parminder Wallacer Facility:[facility] Start: 12-01-2023 End: 12-01-[address] Parminder Guajardo Work Phone: [facility] Work Phone: Start: 12-01-2023 End: 12-01-[address] [facility] Start: 10-14-2023 End: 10-14-[address] Parminder Guajardo Work Phone: [facility] Work Phone: Start: 10-14-2023 End: 10-14-[address] Parminder Guajardo Work Phone: [facility] Work Phone: Start: 09-01-2023 Telephone encounter Lali jacobson FIELD MARKETING COORDINATOR.COMPLIANCE ENGINEER Work Phone: [facility] Comment on above: Results Start: 08-28-2023 End: 08-28-2023 ambulatory PARMINDER GUAJARDO Facility:[facility] Start: 08-20-2023 End: 08-20-[address] Parminder Guajardo Work Phone: [facility] Work Phone: Start: 08-20-2023 End: 08-20-[address] Parminder Guajardo Work Phone: [facility]-Medical Out Work Phone: Start: 08-15-2023 End: 08-15-[address] Parminder Guajardo Work Phone: [facility] Work Phone: Start: 08-01-2023 Non-patient / Non-visit Dr. Claus Guajardo Work Phone: [facility] Work Phone: Start: 06-04-2023 End: 06-04-[address] Parminder Guajardo Work Phone: [facility] Work Phone: Start: 06-04-[address] Parminder Guajardo Work Phone: [facility] Start: 11-22-2022 Non-patient / Non-visit Dr. Claus Guajardo Work Phone: [facility] Start: 11-21-[address] Parminder Guajardo Work Phone: [facility] Start: 11-21-2022 End: 11-21-[address] Parminder Guajardo Work Phone: [facility] Start: 11-21-2022 End: 11-21-[address] Parminder Guajardo Work Phone: [facility] Work Phone: Start: 11-21-2022 End: 11-21-[address] Parminder Guajardo Work Phone: [facility]-Pulmonary Services/Neurology Start: 10-22-2022 End: 10-22-[address] Parminder Guajardo Work Phone: [facility] Start: 09-26-2022 End: 09-26-2022 Emergency department patient visit Dr. Parminder Guajardo Work Phone: [facility]-Emergency Department Start: 09-13-2022 Non-patient / Non-visit Dr. Claus Guajardo Work Phone: [facility] Start: 09-12-2022 Non-patient / Non-visit Dr. Claus Guaajrdo Work Phone: [facility] Start: 09-12-2022 End: 09-12-[address] Parminder Guajardo Work Phone: [facility] Work Phone: Start: 09-12-2022 End: 09-12-[address] Parminder Guajardo Work Phone: [facility]-Cardiovascular Services Start: 09-10-2022 End: 09-10-[address] Parminder Guajardo Work Phone: [facility] Start: 08-28-2022 End: 08-28-[address] Parminder Guajardo Work Phone: [facility] Start: 08-15-[address] Parminder Guajardo Work Phone: [facility] Start: 08-15-2022 End: 08-15-[address] Parminder Guajardo Work Phone: [facility] Start: 08-12-2022 End: 08-12-[address] Parminder Guajardo Work Phone: [facility] Work Phone: Start: 08-12-2022 End: 08-12-[address] Parminder Guajardo Work Phone: [facility] Start: 05-06-2022 End: 05-06-[address] Parminder Guajardo Work Phone: [facility] Start: 05-01-2022 End: 05-01-[address] Parminder Guajardo Work Phone: [facility] Work Phone: Start: 05-01-2022 End: 05-01-[address] Parminder Guajardo Work Phone: [facility] Start: 04-17-[address] Parminder Guajardo Work Phone: [facility] Start: 04-17-2022 End: 04-17-[address] Parminder Guajardo Work Phone: [facility] Start: 01-18-2022 End: 01-18-[address] Parminder Guajardo Work Phone: [facility] Procedures Date Procedure Procedure Detail Performing Clinician Start: 02-28-[address] Parminder Guajardo DO Work Phone: Start: 02-28-2025 Total iron binding capacity measurement Dr. Parminder Guajardo DO Work Phone: Start: 01-11-[address] Parminder Guajardo DO Work Phone: Start: 12-29-2024 MRI of brain without contrast Dr. Parminder Guajardo DO Work Phone: Start: 11-25-2024 CT of chest, abdomen and pelvis without contrast Dr. Parminder Guajardo DO Work Phone: Start: 11-12-2024 Total iron binding capacity measurement Dr. Parminder Guajardo DO Work Phone: Start: 07-23-2024 Radiologic exam ches t 2 views Nain Hernandez PA-C Work Phone: Start: 09-26-2022 Plain chest X-ray Dr. Karly Guajardo Work Phone: Start: 09-10-2022 Plain X-ray of shoulder Dr. Parminder Guajardo Work Phone: Start: 09-10-2022 X-ray of cervical spine Dr. Parminder Guajardo Work Phone: Start: 08-12-2022 CT of abdomen and pe lvis without contrast Dr. Parminder Guajardo Work Phone: Start: 05-01-2022 MRI of brain without contrast Dr. Parminder Guajardo Work Phone: Start: 03-21-2020 Antibody screen Comment on above: Performed By: #### P 8 #### [place] [id number] Start: 10-13-2019 Antibody screen Comment on above: Performed By: #### T &S #### [place] [id number] Start: 07-26-2019 Allergen spec ige cr ude allergen extract each Dr. Parminder Guajardo DO Work Phone: Start: 07-20-[address] diff[address] e detection Dr. Parminder Guajardo Work Phone: Start: 07-20-[address] Babar Guajardo Work Phone: Start: 07-20-[address] Parminder Guajardo Work Phone: Start: 07-07-2019 Bacteria identified in Urine by Culture Dr. Parminder Guajardo DO Work Phone: Start: 07-07-[address] Parminder Guajardo Work Phone: Start: 06-29-[address] Parminder Guajardo DO Work Phone: Start: 05-10-2019 PET/CT Tumor Base -T high Init Dr. Parminder Guajardo Work Phone: Clostridium difficil e detection Dr. Parminder Guajardo Work Phone: Enteric Bacteriology Dr. Guerita Guajardo Work Phone: Urine culture Dr. Parminder Delarosa er Work Phone: Urine culture Dr. Parminder Delarosa er Work Phone: Plan of Treatment Date Care Activity Detail Author Start: 03-01-2025 [facility] Start: 02-28-2025 Serum inorganic phosphate measurement [facility] Start: 02-28-2025 Hospital admission, emergency, from emergency room, medical nature [facility] Start: 02-28-2025 Verification routine [facility] Start: 02-28-2025 Admission procedure [facility] Start: 02-28-2025 [facility] Start: 02-28-2025 End: 02-28-2025 [facility] Start: 02-28-2025 [facility] Start: 02-28-2025 Bacteria identified in Blood by Culture Blood Culture [facility] Start: 02-28-2025 [facility] Start: 01-11-2025 Comprehensive metabolic 2000 panel - Serum or Plasma [facility] Start: 01-11-2025 Ferritin [Mass/volume] in Serum or Plasma [facility] Start: 01-11-2025 Iron and Iron binding capacity panel - Serum or Plasma [facility] Start: 01-11-2025 Lactate dehydrogenase measurement [facility] Start: 01-11-2025 [facility] Start: 2024 RSV Vaccine (1 - 1-dose 75+ series) RSV Vaccine (1 - 1-dose 75+ series) [facility] Start: 04-04-2024 Covid-19 Vaccine ( season) Covid-19 Vaccine ( season) [facility] Start: 08-04-2023 Advance Directive Discussion Advance Directive Discussion [facility] Start: 08-04-2023 Depression Assessment Depression Assessment [facility] Start: 06-17-2023 Urine microalbumin profile DTaP,Tdap,Td Vaccine (2 - Td or Tdap) [facility] Start: 06-04-2023 Patient referral [facility] Work Phone: Start: 04-04-2023 Influenza vaccination Influenza Vaccine (#1) [facility] Start: 03-25-2023 Diabetes Screening Diabetes Screening [facility] Start: 01-24-2021 Venous catheter care management [facility] Start: 09-28-2020 Venous catheter care management [facility] Start: 07-25-2020 Venous catheter care management [facility] Start: 08-11-2019 Patient referral to [facility] Start: 08-03-2019 Administration of blood product [facility] Start: 08-03-2019 [facility] Start: 08-02-2019 Patient referral to [facility] Start: 07-26-2019 Medication administration assessment [facility] Start: 07-26-2019 Medication monitoring [facility] Start: 07-26-2019 Patient education [facility] Start: 07-26-2019 Precautionary procedure [facility] Start: 07-26-2019 Vital signs measurements [facility] Start: 07-26-2019 [facility] Start: 07-14-2019 Administration of blood product [facility] Start: 07-14-2019 [facility] Start: 07-07-2019 Administration of blood product [facility] Start: 07-07-2019 [facility] Start: 06-29-2019 Medication administration assessment [facility] Start: 06-29-2019 Medication monitoring [facility] Start: 06-29-2019 Patient education [facility] Start: 06-29-2019 Precautionary procedure [facility] Start: 06-29-2019 Vital signs measurements [facility] Start: 06-29-2019 [facility] Start: 06-15-2019 Medication administration assessment [facility] Start: 06-15-2019 Medication monitoring [facility] Start: 06-15-2019 Patient education [facility] Start: 06-15-2019 Precautionary procedure [facility] Start: 06-15-2019 Vital signs measurements [facility] Start: 06-15-2019 [facility] Start: 06-14-2019 MR Brain WO and W contrast IV [facility] Start: 06-01-2019 Medication administration assessment [facility] Start: 06-01-2019 Medication monitoring [facility] Start: 06-01-2019 Patient education [facility] Start: 06-01-2019 Precautionary procedure [facility] Start: 06-01-2019 Vital signs measurements [facility] Start: 06-01-2019 [facility] Start: 05-11-2019 Medication administration assessment [facility] Start: 05-11-2019 Medication monitoring [facility] Start: 05-11-2019 Patient education [facility] Start: 05-11-2019 Precautionary procedure [facility] Start: 05-11-2019 Vital signs measurements [facility] Start: 05-11-2019 [facility] Start: 2014 Screening for osteoporosis Bone Density Screening [facility] Start: 2009 RSV Vaccine (1 - 1-dose 60+ series) RSV Vaccine (1 - 1-dose 60+ series) [facility] Start: 10-10-1999 Shingrix Vaccine (1 of 2) Shingrix Vaccine (1 of 2) [facility] Start: 1994 Lipid panel Lipid Screening [facility] Start: 1994 Screening for malignant neoplasm of colon [facility] Start: 1989 Screening for malignant neoplasm of breast Mammogram Screening [facility] Start: 10-10-1967 Anxiety Screening Anxiety Screening [facility] Start: 10-10-1967 Depression Screening Depression Screening [facility] Start: 10-10-1967 Hepatitis C screening Hepatitis C Screening [facility] Start: 04-11-1951 Covid-19 Vaccine (#1) Covid-19 Vaccine (#1) [facility] Bilirubin measurement, urine [facility] CBC W Auto Different ial panel - Blood [facility] CBC W Auto Different ial panel - Blood [facility] CT Abdomen and Pelvi s W contrast IV [facility] Work Phone: CT Abdomen and Pelvi s W contrast IV [facility] Electrocardiographic procedure [facility] Ferritin [Mass/volum e] in Serum or Plasma [facility] Ferritin [Mass/volum e] in Serum or Plasma [facility] Folate [Moles/volume ] in Serum or Plasma [facility] Hemoglobin [Presence] in Urine [facility] Iron and Iron bindin g capacity panel - Serum or Plasma [facility] Iron and Iron bindin g capacity panel - Serum or Plasma [facility] Iron saturation [Mas s Fraction] in Serum or Plasma [facility] Lactate dehydrogenas e measurement [facility] Lactate dehydrogenas e measurement [facility] Measurement of keton es in urine using dipstick [facility] Microscopic urinalysis [facility] Patient Education Hypocalcemia D c Hypomagnesemia Dc [facility] Work Phone: Patient referral [facility] Work Phone: pH of Urine [facility] Positron emission to [facility] with computed tomography [facility] Work Phone: Positron emission to [facility] with computed tomography [facility] Specific gravity of Urine [facility] Total iron binding c apacity measurement [facility] Urine blood test [facility] Urine culture [facility] Urine dipstick for glucose [facility] Urine dipstick for l eukocyte esterase [facility] Urine dipstick for nitrite [facility] Urine dipstick for protein [facility] Urine examination [facility] Urine microscopy: ep ithelial cells [facility] Urine Microscopy: white cells [facility] Urobilinogen [Presen ce] in Urine [facility] US Heart [facility] Immunizations Immunization Date Immunization Notes Care Provider Fa nataliia 08-21-2022 influenza virus vacc ine, unspecified formulation Lali Aguirre FIELD MARKETING COORDINATOR.COMPLIANCE ENGINEER Work Phone: [facility] Payers Date Payer Category Payer Unknown [id number] 2023 Medicare [id number] 2019 Medicaid [id number] 2019 Self-pay [id number] 2019 Unknown [id number] 2018 Medicare [id number] 2018 Private Health Insurance [id number] 1982 Medicare MEDICARE PART A B [id number] Medicare MEDICARE PART A B [id number] Unknown [id number] Unknown [id number] Unknown [id number] Unknown [facility] MCRDUAL COMP HMO [id number] Unknown [employer] MCR DUAL ADVANTAGE [id number] Unknown [id number] 462 Unknown [id number]. 462 Unknown [id number]. 462 Unknown [id number]. 462 Unknown [id number]. 462 Unknown [id number] [id number]. 462 Unknown [id number]. 462 Unknown [id number] [id number]. 462 Unknown [id number]. 462 Unknown [id number]. 462 Unknown [id number] [id number]. 462 Unknown [id number] [id number]. 462 Unknown [id number] [id number]. 462 Unknown [id number]. 462 Social History Date Type Detail Facility Start: 01-18-2022 End: 08-15-2023 Tobacco smoking status CAIS Unknown if ever smoked [facility] Start: 08-21-[address] [facility] Start: 08-21-[address] [facility] Start: 07-25-[address] [facility] Start: 1950 Sex Assigned At Female W [facility] Start: 08-28-2023 Tobacco smoking stat us CAIS Light tobacco smoker [facility] Start: 08-28-2023 Tobacco use and exposure Smokeless tobacco non-user [facility] Start: 08-28-2023 End: 07-23-2024 Alcohol intake Ex-drinker (finding) [facility] Start: 07-10-2020 End: 08-28-2023 History of Social function [facility] Work Phone: Start: 07-10-2020 End: 08-28-2023 Tobacco use panel [facility] Work Phone: How hard is it for y ou to pay for the very basics like food, housing, medical care, and heating Not hard at all [facility] Work Phone: (I/We) worried lobo er (my/our) food would run out before (I/we) got money to buy more. Never true [facility] Work Phone: Start: 08-28-2023 Tobacco Comment 2 CIG/DAY. HX OF 2PPD X 25 YEARS [facility] Start: 1950 Sex Assigned At Not on file C [facility] Start: 08-15-2023 Tobacco smoking stat us NHIS Smokes tobacco daily (finding) [facility] Start: 11-13-2024 End: 11-30-2024 Sex Female (finding) [facility] Start: 02-28-2025 Tobacco smoking stat us CAIS Current Heavy tobacco smoker [facility] Medical Equipment Procedure Code Equipment Code Equipment Origin al Text Equipment Identifier Dates Insertion, vascular access port PORT,POWER 8FR FDA Start: 05-10-2019 Insertion, vascular access port PORT,POWER 8FR FDA Start: 05-10-2019 Insertion, vascular access port PORT,POWER 8FR FDA Start: 05-10-2019 Insertion, vascular access port PORT,POWER 8FR FDA Start: 05-10-2019 Insertion, vascular access port PORT,POWER 8FR FDA Start: 05-10-2019 Insertion, vascular access port PORT,POWER 8FR FDA Start: 05-10-2019 Insertion, vascular access port PORT,POWER 8FR FDA Start: 05-10-2019 Insertion, vascular access port PORT,POWER 8FR FDA Start: 05-10-2019 Insertion, vascular access port PORT,POWER 8FR FDA Start: 05-10-2019 Insertion, vascular access port PORT,POWER 8FR FDA Start: 05-10-2019 Insertion, vascular access port PORT,POWER 8FR FDA Start: 05-10-2019 Insertion, vascular access port PORT,POWER 8FR FDA Start: 05-10-2019 Insertion, vascular access port PORT,POWER 8FR FDA Start: 05-10-2019 Insertion, vascular access port PORT,POWER 8FR FDA Start: 05-10-2019 Insertion, vascular access port PORT,POWER 8FR FDA Start: 05-10-2019 Stent Single J 7 fr .028in Silicone Ptfe 90cm 120cm Ureteral 2 Urinary - [id number]_[facility] Start: 10-13-2019 Ileal conduit/urostomy supplies: 1 box of Coloplast no-sting barrier film wipes (Ref #508460). 1 box of Coloplast no-sting adhesive remover (Ref #334428). 1 bottle of Coloplast stoma powder (Ref #83579). 1 tube of Coloplast stoma paste (Ref #2650). 1 box of Coloplast small rings (Ref #177881). 2 boxes of Coloplast Red flex flat cut-to-fit (Ref #34312). 1 box of Coloplast Red Urostomy clear pouches (Ref #85147). 1 Box of Coloplast Brava Elastic barrier strips (ref#309971). [id number] Start: 10-18-2019 Comment on above: Ileal conduit/urosto my supplies: 1 box of Coloplast no-sting barrier film wipes (Ref #495796). 1 box of Coloplast no-sting adhesive remover (Ref #168211). 1 bottle of Coloplast stoma powder (Ref #27077). 1 tube of Coloplast stoma paste (Ref #2650). 1 box of Coloplast small rings (Ref #669643). 2 boxes of Coloplast Red flex flat cut-to-fit (Ref #76204). 1 box of Coloplast Red Urostomy clear pouches (Ref #56611). 1 Box of Coloplast Brava Elastic barrier strips (ref#683149). Mental Status Date Assessment Result Facility 02-28-2025 Cognitive function Level Of Cons ciousness Awake;Alert;Appropriate;Follo ws Commands [facility] Work Phone: 02-08-2025 Cognitive function Voice/Name [facility] Work Phone: 02-14-2020 Cognitive function Awake;Alert;A ppropriate;Follo ws Commands [facility] Work Phone: 08-03-2019 Cognitive function Mood Descript ion Appropriate;Calm;Relaxed [facility] Work Phone: Clinical Notes 12-20-2019 to 02-28-2025 Note Date & Type Note Facility 02-28-2025 History and physical note [facility] 02-28-2025 Discharge summary [facility] 02-28-2025 Discharge summary Note Date/Time February 28, 2025 6:54pm [facility] Medical Records Department [address] [place] [address] Emergency Department Summary 02/28/25 MR#: [id number] Acct: [id number] Name: LETTY MORENO Rep #:[id number] : 1950 74 From: Steve Weathers DO PCP: Dr. Parminder Guajardo DO Status:REG E R Location: ED HPI History of Present Illness Chief Complaint: Abn Labs Narrative Narrative: Patient is a 74-year-old female past medical history of bladder cancer with urostomy in place, anemia, hypokalemia, CHF who presented to the emergency department with chief complaint of low potassium. Per patient's family members at bedside and the patient she had blood work obtained earlier today and noted that her potassium was low therefore they sent her here for further evaluation management. Per the patient she has been having a lot of diarrhea and over the last several months she has had multiple falls per family members. [place] Per family at bedside Adult Protective Services is supposed to come tomorrow to assess her living situation. Patient did note thatshe has had a significant weight change in the last 6 months and notes that her drainage inspector oncologist ordered CAT scans and they did not find anything to cause this. 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 COPD (chronic obstructive pulmonary disease) Chronic systolic (congestive) heart failure Hypokalemia UTI (urinary tract infection) Anemia due to chemotherapy Chemotherapy management, encounter for Urothelial carcinoma of bladder Neutropenia due to and not concurrent with chemotherapy (~03/2019) Thrombocytopenia due to drugs Anemia associated with chemotherapy Frequent headaches Fatigue Cancer-related pain Smoking history Other hydronephrosis Gross hematuria Chemotherapy management, encounter for Home Medications ?Medication ?Instructions ?Recorded ?Last Taken ?Type ondansetron HCl 4 mg tablet 4 mg PO DAILY 09/10/21 History apixaban 5 mg tablet 5 mg PO DAILY 01/18/2202/28 History pantoprazole 40 mg tablet,delayed 40 mg PO DAILY 01/1802/28/25 History release nystatin 100,000 unit/gram topical 1 applic topical ON CE #30 grams 05/06/22 Unknown Rx cream ipratropium 20 mcg-albuterol 100 1 puff inhalation BID 02/14/23 02/28/25 History mcg/actuation mist for inhalation (Combivent Respimat) polysaccharide iron complex 150 mg 350 mg PO BID 02/1402/28/25 History iron capsule (Ferrex) albuterol sulfate 90 mcg/actuation 2 puff inhalation Q 6 PRN wheezing 11/15/24 02/28/25 History aerosol inhaler dextroamphetamine sulfate 10 mg 20 mg PO QDAY 11/15/24 Unknown History tablet furosemide 20 mg tablet 20 mg PO DAILY 02/28/25 Unkn own History Allergy/AdvReac Type Severity Reaction Status Date / Time Penicillins Allergy Mild rash Verified 02/28/25 13:20 ciprofloxacin (From Cipro) AdvReac Nausea/Vom/ Verified 02/28/25 13:20 Diarrhea sulfamethoxazole (From AdvReac Nausea/Vom/ Verified 02/28/25 13:20 Bactrim) Diarrhea trimethoprim (From Bactrim) AdvReac Nausea/Vom/ Verified 02/28/25 13:20 Diarrhea Family History Brother Aneurysm Heart disease Mother Heart disease Cancer Father No problems noted. Surgical History BLADDER RESECTION History of hysterectomy Encounter for adjustment and management of vascular access device Social History adopted: No Smoking Status: Heavy Smoker (>10/day) ROS ROS ED ROS Narrative Constitutional: Patient denies any fevers or chills Eyes: Denies changes double vision blurry vision Cardiovascular: Denies chest pain Respiratory: Denies coughing wheezing shortness of breath Abdomen: Complains of diarrhea as noted above denies any abdominal pain nausea vomiting : Denies any urinary symptoms Neurological: Complains of generalized weakness with multiple falls as noted above denies any numbness, tingling Skin: Denies any rashes or lesions EXAM Physical Exam Narrative Exam Narrative: General: Patient was lying in bed rest comfortably did not appear to be acute distress Head: Atraumatic, normocephalic Eyes: PERRL bilaterally, EOMI biotic no conjunctival injection noted Neck: Soft, supple, trachea midline Cardiovascular: Regular rate and rhythm no murmurs gallops rubs noted Respiratory: Clear to auscultation bilaterally Abdomen: Soft, nondistended, nontender to palpation Extremities: +4/5 strength noted in the bilateral upper and lower extremities, radial pulses +2/4 in the bilateral extremities Neurological: Patient follow commands knew that she was at [facility] the year is 2024 Skin: Warm, dry, tact no rashes lesions noted Const Vital Signs: 02/28/25 13:18 02/28/25 14:17 02/28/25 14:23 Temperature 98 F Temperature Source Oral Pulse Rate 80 70 Respiratory Rate 19 H 21 H Respiratory Effort Normal Short of Breath Respiratory Pattern Normal Blood Pressure 87/53 L 112/45 L Blood Pressure Mean 64 67 Pulse Ox 99 100 Oxygen Delivery Method Room Air Room Air 02/28/25 15:00 02/28/25 16:08 02/28/25 17:00 Temperature Temperature Source Pulse Rate 70 Respiratory Rate 18 Respiratory Effort Respiratory Pattern Blood Pressure 115/38 L Blood Pressure Mean 63 Pulse Ox 99 98 Oxygen Delivery Method Room Air 02/28/25 18:00 Temperature Temperature Source Pulse Rate 78 Respiratory Rate 17 Respiratory Effort Respiratory Pattern Blood Pressure 111/76 Blood Pressure Mean 87 Pulse Ox 94 Oxygen Delivery Method Room Air MDM MDM MDM Narrative Medical decision making narrative: Patient is a 74-year-old female who presents to the emergency department chief complaint of hypokalemia with multiple falls. On the differential diagnose includes but limited to hypokalemia, hypomagnesia, UTI, dehydration. Once workup is obtained reviewed she will be reevaluated. Patient be given a liter of IV fluids. Nursing notified me that when they attempted to straight cath the patient she had significant excoriation and redness along her lower abdominal wall and notedsome purulent drainage in this area as well. Patient was refusing catheterization. Patient CBC was reviewed showed no evidence leukocytosis white blood count normal 10.5, hemoglobin was 7, platelet count was 175. Patient's INR was 2.4, PT of 26.9. Patient sodium normal 136, potassium was low indicating hypokalemiaat 2.7 she will be given 40 mill equivalents of replacement orally and IV, carbon dioxide low at 7.9. Patient creatinine elevated to 7.24 she has chronic kidney disease. Patient lactic acid normal less than 1, magnesium was 1.3 she will be given 2 g of magnesium sulfate as well. Patient EKG reviewed shows sinus rhythm with a rate of 72 bpm. Evidence of right bundle branch block. Shehas a history of this. Patient's power of securities attorney daughter arrived and after discussion we will place a medical hold on the patient as she is unable to care for herself and she livesalone. She has been sitting in feces and not caring for herself per daughter atbedside and son who was here earlier. They state that once again Adult Protective Services was scheduled to come out to the house tomorrow. Will discuss case with hospitalist for admission for likely placement. Patient was given 2.5 mg of Haldol intravenously. Patient case discussed with hospitalist Dr. Dias who accept patient for admission. Patient was ultimately notified. Lab Data Labs: Laboratory Results - last 24 hr 02/28/25 02/28/25 02/28/25 14:31 16:03 16:09 WBC 10.5 RBC 2.31 L Hgb 7.0 L Hct 21.8 L MCV 94.4 MCH 30.3 MCHC 32.1 RDW Std Deviation 59.8 H RDW Coeff of Mica 17.3 H Plt Count 175 MPV 11.8 Immature Gran % (Auto) 0.600 Neut % (Auto) 81.5 H Lymph % (Auto) 11.5 L [place] % (Auto) 6.1 Eos % (Auto) 0.2 Baso % (Auto) 0.1 Absolute Neuts (auto) 8.6 H Absolute Lymphs (auto) 1.20 Nucleated RBC % 0 PT 26.9 H INR 2.4 APTT 34.8 Sodium 136 Potassium 2.7 L* Chloride 114 H Carbon Dioxide 7.9 L* Anion Gap 15 BUN 37 H Creatinine 2.74 H Est GFR (MDRD) Non-Af 18 L BUN/Creatinine Ratio 13.4 Glucose 96 Lactic Acid < 1.0 Calcium 6.7 L Magnesium 1.3 L Discharge Plan Triage Chief Complaint: Abn Labs ED Provider: Steve Weathers Dx/Rx/DC Orders Clinical Impression: Adult failure to thrive, Urothelial carcinoma of bladder, 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, Anemia of chronic disease Prescriptions: No Action ondansetron HCl 4 mg tablet 4 mg PO DAILY Patient Comments: take 1 tablet by mouth every 8 hours dextroamphetamine sulfate 10 mg tablet 20 mg PO QDAY pantoprazole 40 mg tablet,delayed release (DR/EC) 40 mg PO DAILY Patient Comments: take 1 tablet by mouth daily apixaban 5 mg tablet 5 mg PO DAILY nystatin 100,000 unit/gram cream 1 applic topical ONCE Qty: 30 4RF Combivent Respimat 20-100 mcg/actuation mist 1 puff inhalation BID polysaccharide iron complex [Ferrex 150] 150 mg iron capsule 350 mg PO BID albuterol sulfate 90 mcg/actuation HFA aerosol inhaler 2 puff inhalation Q6 PRN (Reason: wheezing) furosemide 20 mg tablet 20 mg PO DAILY Rx Instructions: pt states takes prn Primary Care Provider: Parminder Guajardo Referrals: Parminder Guajardo DO [Primary Care Provider] - Print Language: Chinese Disposition Disposition: [facility] Capacity Capacity Assessment Tool Patient lacks Decision Making Capacity: unable to understand, reason and deliberate health related choices: Yes Risk to self and or others?: Yes Risk of leaving the patient care unit and or hospital?: Yes Legal Cable Inspector Define type of medical hold:: Power of securities attorney for healthcare (POAHC) What to do if you have Problems For any increased pain, shortness of breath, bleeding, nausea or vomiting, chestpain, or any unexpected problems, contact your Primary Care Provider. Call [facility] ([phone]) or report to the closest Emergency Room. Call 911 if necessary. 02/28/25 1854 <Electronically signed by Steve Weathers DO> Cosigner Signature (if applicable): CC: Dr. Parminder Guajardo DO ~ Signed [facility] Work Phone: 1(534) 203-236904-24-2025 Radiology Diagnostic study note [facility] Imaging Services [address], [place] [address] CT Chest, Abd, Pelvis WO Cont MR#: [id number] Acct: [id number] Name: LETTY MORENO Rep #: [id number] : 1950 F 74 From: Kadeem Rosas MD PCP: Dr. Parminder Guajardo DO Status: REG C LI Study:CT Chest, Abd, Pelvis WO Cont Date of Jose newell: 11/25/24 Exam# [id number] Ordering Dr: Stevie Stone MD PROCEDURE: CT CHEST, ABD, PELVIS WO CONT 11/25/2024 REASON FOR EXAM: BLADDER CA TECHNIQUE: Chest, abdomen and pelvis CT without intravenous contrast. Coronal and Sagittal reconstruction series were provided. One or more dose reduction techniques were used (e.g., Automated exposure control, adjustment of the mA and/or kV according to patient size, use of iterative reconstruction technique. FINDINGS: CT CHEST: Hardware: Right internal jugular chest port. Lymph nodes: Unremarkable Heart and Vasculature: No cardiomegaly. Atherosclerotic calcifications of the thoracic aorta. Thoracic aorta and pulmonary arteries have normal contours; noncontrast technique limits evaluation. Coronary Artery Calcifications: Present Lungs and Airways: No pulmonary nodule Pleura: No pleural effusion Bones: Unremarkable CT ABDOMEN / PELVIS: Noncontrast technique limits evaluation of the abdominal and pelvic viscera. Liver: Cirrhosis. No focal mass Gallbladder: Several calcified gallstones. Spleen: Normal size. Pancreas: Normal size without evidence of mass surrounding inflammation or ductal dilation. Adrenals: Unremarkable. Kidneys: 2 mm nonobstructing stone lower pole of the right kidney. We are left hydronephrosis and ureteral dilatation with severe parenchymal atrophy consistent with chronic obstruction. Bladder: Status post cystectomy with a right upper quadrant ileal conduit. Reproductive Organs: Unremarkable. Bowel: No bowel obstruction. Appendix: The appendix is not identified. There is no inflammatory process identified in the right lower quadrant to suggest appendicitis. Lymph nodes: Unremarkable. Vasculature: Mild diffuse atherosclerotic calcifications are noted. Peritoneum / Retroperitoneum: Unremarkable Bones: Multiple chronic mild compression fractures of the lumbar spine. CT/CT Chest, Abd, Pelvis WO Cont IMPRESSION: No CT evidence of residual, recurrent, or metastatic bladder cancer. Chronic obstruction of the left ureter. Cirrhosis. Cholelithiasis. Reading Location: [id number] CC: Dr. Parminder Guajardo DO; Dr. Brian Stone MD ~ Projector Booth Operator: Signed [facility]04-11-2025 Evaluation note* Diagnosis Onset Date Resolution Status Admit Date Non-ischemic cardiomyopathy chronic November 12, 2024 9:57am Urothelial carcinoma of bladder cns reba November 12, 2024 9:57am [facility] Work Phone: 1(257) 516-722004-11-2025 Evaluation note* Diagnosis Onset Date Resolution Status Admit Date Non-ischemic cardiomyopathy chronic November 12, 2024 9:57am Urothelial carcinoma of bladder cns reba November 12, 2024 9:57am Anemia of chronic disease chronic November 15, 2024 4:00pm Bladder cancer chronic November 4:00pm Chronic kidney disease chronic Ap ril 2024 4:00pm Headache chronic November 15 4:00pm [facility] Work Phone: 1(497) 441-628804-11-2025 Evaluation note* Diagnosis Onset Date Resolution Status Admit Date Non-ischemic cardiomyopathy chronic November 12, 2024 9:57am Urothelial carcinoma of bladder cns reba November 12, 2024 9:57am Anemia of chronic disease chronic November 15, 2024 4:00pm Bladder cancer chronic November 4:00pm Chronic kidney disease chronic Ap ril 2024 4:00pm Headache chronic November 15 4:00pm Hypokalemia chronic January 11 7:15am Urothelial carcinoma of bladder cns reba January 11, 2025 7:15am Encounter for education resolved J 2024 7:15am Anemia of chronic disease chronic January 11, 2025 8:50am Bladder cancer chronic January 11, 2025 8:50am Chronic kidney disease chronic Ju 2024 8:50am Headache chronic January 11 8:50am Tinnitus chronic January 11 8:50am [facility] Work Phone: 1(637) 691-832504-11-2025 Evaluation note* Diagnosis Onset Date Resolution Status Admit Date Non-ischemic cardiomyopathy chronic November 12, 2024 9:57am Urothelial carcinoma of bladder cns reba November 12, 2024 9:57am Anemia of chronic disease chronic November 15, 2024 4:00pm Bladder cancer chronic November 4:00pm Chronic kidney disease chronic Ap ril 2024 4:00pm Headache chronic November 15 4:00pm Anemia of chronic disease chronic January 11, 2025 8:50am Bladder cancer chronic January 11, 2025 8:50am Chronic kidney disease chronic Ju ne 2024 8:50am Headache chronic January 11 8:50am Tinnitus chronic January 11 8:50am Hypokalemia chronic February 28 10:30am Urothelial carcinoma of bladder cns reba February 28, 2025 10:30am Encounter for education resolved J kavya 2024 10:30am Nausea vomiting and diarrhea acute February 28, 2025 10:55am Bladder cancer chronic February 28, 2025 10:55am Chronic kidney disease chronic Ju ly 2024 10:55am [facility] Work Phone: 1(222) 393-740704-11-2025 Evaluation note* Diagnosis Onset Date Resolution Status Admit Date Non-ischemic cardiomyopathy chronic November 12, 2024 9:57am Urothelial carcinoma of bladder cns reba November 12, 2024 9:57am Anemia of chronic disease chronic November 15, 2024 4:00pm Bladder cancer chronic November 4:00pm Chronic kidney disease chronic Ap ril 2024 4:00pm Headache chronic November 15 4:00pm Anemia of chronic disease chronic January 11, 2025 8:50am Bladder cancer chronic January 11, 2025 8:50am Chronic kidney disease chronic Ju ne 2024 8:50am Headache chronic January 11 8:50am Tinnitus chronic January 11 8:50am Hypokalemia chronic February 28 10:30am Urothelial carcinoma of bladder cns reba February 28, 2025 10:30am Encounter for education resolved J kavya 2024 10:30am Nausea vomiting and diarrhea acute February 28, 2025 10:55am Bladder cancer chronic February 28, 2025 10:55am Chronic kidney disease chronic Ju ly 2024 10:55am Adult failure to thrive acute J kavya 2024 6:45pm Nausea vomiting and diarrhea acute February 28, 2025 6:45pm Anemia of chronic disease chronic February 28, 2025 6:45pm Right bundle branch block (R BBB) with left posterior fascicular block chronic February 28, 2025 6:45pm Urothelial carcinoma of bladder cns reba February 28, 2025 6:45pm [facility] Work Phone: 1(367) 443-460612-23-2024 Telephone encounter Note* Telephone Encounter - Dallas Yin MSW - 07/26/2024 11:02 AM EST Sw called back and patient daughter notes that patient does not want to speak with Sw. Patient daughter notes that patient spouse recently and daughter and brother are working on cleaningup home. This Sw noted if patient and or daughter would like to speak with SW in the future to be aware thatSw is available. [facility]12-23-2024 Miscellaneous Notes* Telephone Encounter - Dallas Yin MSW - 07/26/2024 11:02 AM EST Sw called back and patient daughter notes that patient does not want to speak with Sw. Patient daughter notes that patient spouse recently and daughter and brother are working on cleaningup home. This Sw noted if patient and or daughter would like to speak with SW in the future to be aware thatSw is available. * Telephone Encounter - Dallas Yin MSW - 07/23/2024 2:55 PM EST Sw called patient/daughter to discuss patient care needs. Daughter notes patient is not feeling well and asks Sw to call them back on 07/26. Sw will try call then. [facility] Telephone encounter Note * Telephone Encounter - Dallas Yin MSW - 07/23/2024 2:55 PM EST Sw called patient/daughter to discuss patient care needs. Daughter notes patient is not feeling well and asks Sw to call them back on 07/26. Sw will try call then. [facility]12-20-2024 NoteHNO ID: [id number] Author: NAIN HERNANDEZ PA-C Service: ? Author Type: Physician Sheet Metal Assembler And Riveter Type: Progress Notes Filed: 07/23/2024 19:42 Note Text: This note was created using [employer]. Subjective Letty Trevino is a 73 year old female. Patient is a 73-year-old female who complains of worsening congestion and cough that she has been experiencing for approximately the past 4 days. Patient denies sinus pressure, ear pain or sore throat. Patient reports no fever, chills or myalgia but states that she has ongoing weakness secondary to her anemia and comorbid conditions. Patient denies dyspnea but does report increased episodes of shortness of breath primarily with exertion. Patient does have COPD and has an approximate [id number] history of tobacco use. Patient does not use home oxygen. Patient does have a history of cardiomyopathy as well as transitional cell carcinoma of the bladder and states that she does have a Mediport in place although she has completed chemotherapy and is no longer receiving any type of treatment with the exception of periodic potassium infusions for hypokalemia. Cough Associated symptoms include shortness of breath and wheezing. Review of Systems Respiratory: Positive for cough, shortness of breath and wheezing. All other systems reviewed and are negative. Objective BP 114/65 Pulse 81 Temp 36.5 ?C (97.7 ?F) Resp 26 Wt 88 kg (194 lb 0.1 oz) SpO2 97% BMI 39.18 kg/m? Physical Exam Vitals and nursing note reviewed. Constitutional: Appearance: Normal appearance. She is normal weight. HENT: Head: Normocephalic and atraumatic. Right Ear: Tympanic membrane, ear canal and external ear normal. Left Ear: Tympanic membrane, ear canal and external ear normal. Nose: Nose normal. Mouth/Throat: Mouth: Mucous membranes are moist. Pharynx: Oropharynx is clear. Eyes: Extraocular Movements: Extraocular movements intact. Conjunctiva/sclera: Conjunctivae normal. Pupils: Pupils are equal, round, and reactive to light. Cardiovascular: Rate and Rhythm: Normal rate and regular rhythm. Pulses: Normal pulses. Heart sounds: Normal heart sounds. Pulmonary: Effort: Pulmonary effort is normal. Breath sounds: Wheezing and rhonchi present. Musculoskeletal: Cervical back: Normal range of motion and neck supple. Skin: General: Skin is warm and dry. Capillary Refill: Capillary refill takes less than 2 seconds. Neurological: General: No focal deficit present. Mental Status: She is alert and oriented to person, place, and time. Psychiatric: Mood and Affect: Mood normal. Behavior: Behavior normal. Thought Content: Thought content normal. Judgment: Judgment normal. Assessment and Plan Physical exam findings as noted above. Patient was immediately advised that she requires evaluation in an emergency department as she will likely require hospital admission and IV antibiotics. Patient adamantly refuses to go to an emergency department as she has multiple comorbid conditions and reports previous multiple bad experiences while in emergency departments. Patient does agree to chest x-ray which was obtained. Radiologist reports questionable patchy opacities in the lung bases. Although the patient does demonstrate a pulse oximeter saturation of 97% on room air, she does present with significant rhonchi and wheezing. Patient was informed of the radiologist findings and again strongly advised that she requires evaluation in an emergency department. The patient again forcefully refuses to go to an emergency department. Patient was provided with prescriptions for doxycycline 100 mg and prednisone 20 mg as she does have pneumonia that requires treatment in some form. Patient's daughter is also being seen at this facility for similar symptoms by another provider. I did contact the patient's daughter to inform her that the patient requires evaluation in an emergency department and likely hospital admission. I did not provide details of the patient's medical condition and did not violate HIPAA in my conversation with the patient's daughter. Patient's daughter states that she herself did want to take the patient to an emergency department as opposed to this [facility] facility, however the patient adamantly refused to be taken to an emergency department. Daughter states that she is in complete agreement that the patient appears quite ill and states that it was not her decision to bring the patient to this location. Daughter also reports that the patient's last week and she has noted increasing depression as well as lack of motivation to perform basic personal hygiene and self-care. Staff contacted social media coordinator and daughter gave her permission to be contacted for social service evaluation of the patient. Patient's vital signs are completely within normal limits and the patient is not tachycardic, febrile or hypoxic. (more content not included)...[place] [address]-20-2024 History of Present illness Narrative* Nain Hernandez PA-C - 07/23/2024 2:52 PM EST This note was created using [employer]. Subjective Letty Trevino is a 73 year old female. Patient is a 73-year-old female who complains of worsening congestion and cough that she has been experiencing for approximately the past 4 days. Patient denies sinus pressure, ear pain or sore throat. Patient reports no fever, chills or myalgia but states that she has ongoing weakness secondary toher anemia and comorbid conditions. Patient denies dyspnea but does report increased episodes of shortness of breath primarily with exertion. Patient does have COPD and has an approximate [id number] history of tobacco use. Patient does not use home oxygen. Patient does have a history of cardiomyopathy as well as transitional cell carcinoma of the bladder and states that she does have a Mediportin place although she has completed chemotherapy and is no longer receiving any type of treatment with the exception of periodic potassium infusions for hypokalemia. Cough Associated symptoms include shortness of breath and wheezing. Review of Systems Respiratory: Positive for cough, shortness of breath and wheezing. All other systems reviewed and are negative. Objective BP 114/65 Pulse 81 Temp 36.5 C (97.7 F) Resp 26 Wt 88 kg (194 lb 0.1 oz) SpO2 97% BMI 39.18 kg/m Physical Exam Vitals and nursing note reviewed. Constitutional: Appearance: Normal appearance. She is normal weight. HENT: Head: Normocephalic and atraumatic. Right Ear: Tympanic membrane, ear canal and external ear normal. Left Ear: Tympanic membrane, ear canal and external ear normal. Nose: Nose normal. Mouth/Throat: Mouth: Mucous membranes are moist. Pharynx: Oropharynx is clear. Eyes: Extraocular Movements: Extraocular movements intact. Conjunctiva/sclera: Conjunctivae normal. Pupils: Pupils are equal, round, and reactive to light. Cardiovascular: Rate and Rhythm: Normal rate and regular rhythm. Pulses: Normal pulses. Heart sounds: Normal heart sounds. Pulmonary: Effort: Pulmonary effort is normal. Breath sounds: Wheezing and rhonchi present. Musculoskeletal: Cervical back: Normal range of motion and neck supple. Skin: General: Skin is warm and dry. Capillary Refill: Capillary refill takes less than 2 seconds. Neurological: General: No focal deficit present. Mental Status: She is alert and oriented to person, place, and time. Psychiatric: Mood and Affect: Mood normal. Behavior: Behavior normal. Thought Content: Thought content normal. Judgment: Judgment normal. Assessment and Plan Physical exam findings as noted above. Patient was immediately advised that she requires evaluationin an emergency department as she will likely require hospital admission and IV antibiotics. Patient adamantly refuses to go to an emergency department as she has multiple comorbid conditions and reports previous multiple bad experiences while in emergency departments. Patient does agree to chest x-ray which was obtained. Radiologist reports questionable patchy opacities in the lung bases. Although the patient does demonstrate a pulse oximeter saturation of 97% on room air, she does present with significant rhonchi and wheezing. Patient was informed of the radiologist findings and again strongly advised that she requires evaluation in an emergency department. The patient again forcefully refuses to go to an emergency department. Patient was provided with prescriptions for doxycycline 100 mg and prednisone 20 mg as she does have pneumonia that requires treatment in some form. Patient's daughter is also being seen at this facility for similar symptoms by another provider. I did contact the patient's daughter to inform her that the patient requires evaluation in an emergency departmentand likely hospital admission. I did not provide details of the patient's medical condition and didnot violate HIPAA in my conversation with the patient's daughter. Patient's daughter states that she herself did want to take the patient to an emergency department as opposed to this [facility] facility, however the patient adamantly refused to be taken to an emergency department. Daughter states that she is in complete agreement that the patient appears quite ill and states that it was not her decision to bring the patient to this location. Daughter also reports that the patient's last week and she has noted increasing depression as well as lack of motivation to perform basicpersonal hygiene and self-care. Staff contacted social media coordinator and daughter gave her permission sla contacted for social service evaluation of the patient. Patient's vital signs are completely within normal limits and the patient is not tachycardic, febrile or hypoxic. Patient further does not appear to be intoxicated or otherwise incapable of making decisions and her mental status is fully intact. Patient provides accurate and detailed answers to all questions and demonstrates thorough understanding of her medical history as well as her current symptoms. One last attempt was made to encourage the patient to seek care in an emergency department which was not successful. Patient verbalizes excellent understanding of the ramifications of this decision which were discussed with the patient in detail. CLINICAL IMPRESSION: Pneumonia Bilateral Lower Lobes; Decrease in Ability to Care for Self ASSESSMENT/PLAN: 1. Acute cough - ICD9: 786.2, ICD10: R05.1 (primary diagnosis) - XR CHEST 2V FRONTAL/LAT 2. Unable to care for self - ICD9: V49.89, ICD10: Z78.9 3. Pneumonia of both lower lobes due to infectious organism - ICD9: 486, ICD10: J18.9 - DOXYCYCLINE HYCLATE 100 MG TABLET - PREDNISONE 20 MG TABLET Nain Hernandez PA-C [facility] History of Present illness Narrative* Eliu Zuleta RT(R) - 07/23/2024 2:10 PM EST Radiology Service Progress Note PATIENT NAME: Letty Trevino DATE OF SERVICE: July 23, 2024 TIME: 2:04 PM PATIENT IDENTITY VERIFICATION COMPLETED USING TWO (2) IDENTIFIERS: Name and Date of confirmedby patient verbally. FALL SCREENING: Has the patient had 2 falls in the last year or 1 fall with injury or currently using an Ambulatory Assistive Device (Walker, Cane, Wheelchair, Crutches, etc.)? Yes, Patient High Riskfor Falls What interventions were put in place to prevent falls during this visit? Increased Observations by Caregivers PATIENT GENDER DATA: Female. status: : No status: NO. PATIENT RELEVANT IMPLANT DATA REVIEWED: Yes PATIENT PRESENTS WITH AN IMPLANTABLE OR ATTACHED FLOUR TESTER: No RADIOLOGY DEPARTMENT: General X-ray: Exam(s) Completed: Chest X-Ray PERIPHERAL IV DATA: Not applicable SIGNED BY: RT Ryan(R) July 23, 2024 2:04 PM documented in this [facility]Tr[facility]24 NoteHNO ID: [id number] Author: ELIU ZULETA RT(R) Service: ? Author Type: Hip Hop Artist Type: Progress Notes Filed: 07/23/2024 14:20 Note Text: Radiology Service Progress Note PATIENT NAME: Letty Trevino DATE OF SERVICE: July 23, 2024 TIME: 2:04 PM PATIENT IDENTITY VERIFICATION COMPLETED USING TWO (2) IDENTIFIERS: Name and Date of confirmed by patient verbally. FALL SCREENING: Has the patient had 2 falls in the last year or 1 fall with injury or currently using an Ambulatory Assistive Device (Walker, Cane, Wheelchair, Crutches, etc.)? Yes, Patient High Risk for Falls What interventions were put in place to prevent falls during this visit? Increased Observations by Caregivers PATIENT GENDER DATA: Female. status: : No status: NO. PATIENT RELEVANT IMPLANT DATA REVIEWED: Yes PATIENT PRESENTS WITH AN IMPLANTABLE OR ATTACHED FLOUR TESTER: No RADIOLOGY DEPARTMENT: General X-ray: Exam(s) Completed: Chest X-Ray PERIPHERAL IV DATA: Not applicable SIGNED BY: RT Ryan(R) July 23, 2024 2:04 [facility]02-01-2024 Miscellaneous Notes* Telephone Encounter - Radha Olsen RN - 09/04/2023 10:29 AM EST Patient notified of results and provider's instructions. Patient verbalizes understanding. Radha Olsen RN * Telephone Encounter - Rosemary Mireles LPN - 09/04/2023 8:56 AM EST Left message on husbands phone for patient to return call. Called several Numbers and all were wrong Rosemary Mireles LPN Updated #'s * Telephone Encounter - Rosemary Mireles LPN - 09/03/2023 9:39 AM EST Attempted to reach out to pt. No answer on 3 different lines. Rosemary Mireles LPN * Telephone Encounter - Lali Aguirre APRN.ALEXX - 09/01/2023 9:34 AM EST Attempted to reach out and inform patient that her wound culture reveals bacterial growth. Wanted to reach out and discuss; + wound culture Are her sx improving? Continue taking ATB F/U with PCP VM message left to return call. If no answer, please try again morning of 09/02/23 [facility] NoteHNO ID: [id number] Author: LALI AGUIRRE APRN.ALEXX Service: ? Author Type: Nurse Practitioner Type: Progress Notes Filed: 08/28/2023 19:28 Note Text: This note was created using [employer]. Subjective Letty Trevino is a 72 year old female. 72 year old female with PMH of CKD, CHF, DVTs on Eliquis, and bladder cancer presents today for acute onset left lower leg swelling for 4 days. Pertinent positives include bilateral lower leg swelling L>R, redness, weeping, and left leg discomfort. Pertinent negatives include fever, chills, body aches and shortness of breath. She states both legs have been swollen for weeks and was just referred to a herd tester by her oncologist. She cut the left leg on a copper tea pot a week ago. She saw a nephrology [employer]TE[employer] LAYOUT DESIGNER yesterday via telehealth for the BLE edema who prescribed her 80 mg of furosemide and told her to come get the left leg looked at. She just picked up the medication today and has not started taking it. She endorses that she has been compliant with Eliqius. The history is provided by the patient. No automotive shop foreman was used. Edema This is a new problem. The current episode started 1 to 4 weeks ago. The problem occurs constantly. The problem has been gradually worsening. Pertinent negatives include no anorexia, arthralgias, chest pain, chills, fatigue, fever, headaches, myalgias or rash. Nothing aggravates the symptoms. Treatments tried: topical antibiotic ointment and dressing with tape. The treatment provided no relief. 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 pantoprazole DR (PROTONIX) 40 mg tablet Take 1 tablet by mouth every afternoon. cholecalciferol, vitamin D3, 325 mcg (13,000 unit) cap Take by mouth. apixaban (ELIQUIS) 5 mg tab(s) Take 1 tablet by mouth twice daily. Take 2 tablets twice daily till 03/31 and then take 1 tablet twice daily loperamide (IMODIUM) 2 mg cap(s) Take 2 mg by mouth four times daily as needed for Diarrhea. ALBUTEROL INHALATION Inhale 1 Inhalation as instructed as needed. dextroamphetamine-amphetamine (ADDERALL) 5 mg tablet Take 5 mg by mouth three times daily. doxycycline monohydrate 100 mg tablet Take 1 tablet by mouth two times a day for 7 days. mirtazapine (REMERON) 15 mg tablet Take 1 tablet by mouth daily at bedtime. (Patient not taking: Reported on 08/28/2023) folic acid 1 mg tablet Take 1 tablet by mouth once daily. (Patient not taking: Reported on 08/28/2023) melatonin 3 mg tablet Take 1 tablet by mouth at bedtime as needed (insomnia). (Patient not taking: Reported on 08/28/2023) spironolactone (ALDACTONE) 25 mg tablet Take 25 mg by mouth twice daily. (Patient not taking: Reported on 08/28/2023) traMADol (ULTRAM) 50 mg tablet Take 50 mg by mouth daily at bedtime. (Patient not taking: Reported on 08/28/2023) furosemide (LASIX) 20 mg tablet Take 1 tablet by mouth once daily. For 3 days to decrease fluid. Repeat in one month (Patient not taking: Reported on 03/20/2020 ) Miscellaneous Medical Supply misc Ileal conduit/urostomy supplies: 1 box of Coloplast no-sting barrier film wipes (Ref #[id number]). 1 box of Coloplast no-sting adhesive remover (Ref #[id number]). 1 bottle of Coloplast stoma powder (Ref #[id number]). 1 tube of Coloplast stoma paste (Ref #[id number]). 1 box of Coloplast small rings (Ref #[id number]). 2 boxes of Coloplast Red flex flat cut-to-fit (Ref #[id number]). 1 box of Coloplast Red Urostomy clear pouches (Ref #[id number]). 1 Box of Coloplast Brava Elastic barrier strips (ref#[id number]). zolpidem (AMBIEN) 5 mg tablet Take 1 tablet by mouth at bedtime as needed for up to 5 days. for insomnia. (Patient not taking: Reported on 03/20/2020) imipramine HCl (TOFRANIL) 10 mg tablet Take 1 tablet by mouth daily at bedtime. FAMILY HISTORY Problem Relation Age of Onset Cancer Mother breast liver Social History Tobacco Use Smoking status: Light Smoker Smokeless tobacco: Never Tobacco comments: 2 CIG/DAY. HX OF 2PPD X 25 YEARS Vaping Use Vaping Use: Never used Substance Use Topics Alcohol use: Not Currently Drug use: Never Review of Systems Constitutional: Negative for chills, fatigue and fever. Eyes: Negative for pain, discharge, redness and itching. (more content not included)...[facility]04-21-2023 Procedure [facility]08-18-2020 History of Past illness Narrative* Problem Noted Date Diagnosed Date Resolved Date Abdominal wall abscess 03/21/202003/25 documented as of this encounter (statuses as of 09/04/2023) [facility] Hospital Discharge instructionsAmbulatory Orders* Abdomen/Pelvis WITH Contrast [CT] Time Frame: 0 Days, Location: None Selected * Durable Medical Equipment Time Frame: 0 Days, Location: None Selected * Miscellaneous Order Time Frame: 0 Days, Location: [facility] * Miscellaneous Order Time Frame: 12/20/19, Location: None Selected * Brain W/WO Contrast [MRI] Location: None Selected * Consult: Nutrition/Dietitian Location: None Selected * Consult: Nutrition/Dietitian Location: None Selected * ONC Referral: Radiation Oncology Time Frame: 0 Days, Location: None Selected * ONC Referral: Surgery Time Frame: 05/05/19, Location: None Selected [facility] Work Phone: Discharge summary Author Todd Delgado [facility] September 26, 2022 8:51am Note Date/Time September 26, 2022 8:46am [facility] Medical Records Department [address] [place] [address] Emergency Department Summary 09/26/22 MR#: [id number] Acct: [id number] Name: LETTY MORENO Rep #:[id number] : 1950 71 From: Todd Delgado DO PCP: Dr. Parminder Guajardo DO Status:REG E R Location: ED HPI History of Present Illness Chief Complaint: Shortness of Breath Narrative Narrative: Patient is a 71-year-old female with past medical history of of bladder cancer as well as chronic renal failure and history of iron deficiency anemia hypertension as well as previous DVT currently on Eliquis. She also reports smoking 1 to 2 pack a days for multiple years but denies any formal diagnosis ofCOPD or need for supplemental oxygen. She states that over the past 6 to 7 daysshe has been having increased shortness of breath and cough and wheeze and she states this occurred after starting carvedilol. She denies any fevers chills orknown sick contact. She states that she felt symptoms have been slowly worsening and secondary to this comes in for evaluation [facility] Medical History Abdominal wall mass (03/20/20) Anemia associated with chemotherapy Anemia due to chemotherapy Cancer-related pain Chemotherapy management, encounter for Chemotherapy management, encounter for Chronic systolic (congestive) heart failure COPD (chronic obstructive pulmonary disease) Deep vein thrombosis, lower right extremity (03/20/20) Diarrhea Dizziness Fatigue Fatigue Frequent headaches Gross hematuria H/O carcinoma of bladder Hydronephrosis of left kidney Hypokalemia Narcolepsy Nausea & vomiting Neutropenia due to and not concurrent with chemotherapy (~03/2019) Non-ischemic cardiomyopathy Other hydronephrosis Port-A-Cath in place Primary osteoarthritis, 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 Smoking history Thrombocytopenia due to drugs Uremia Urothelial carcinoma of bladder UTI (urinary tract infection) Home Medications tramadol 50 mg tablet 50 mg PO BID PRN PRN Pain 1-10 Or Fever 11/23/19 [History Last Taken Unknown] trazodone 50 mg tablet 50 mg PO QHS sleep 05/31/20 [History Last Taken 2 Days Ago ~08/19/20] dextroamphetamine sulfate 10 mg tablet 10 mg PO DAILY 09/10/21 [History Last Taken Unknown] ondansetron HCl 4 mg tablet 4 mg PO DAILY 09/10/21 [History Last Taken Unknown] apixaban 5 mg tablet 5 mg PO DAILY 01/18/22 [History Last Taken Unknown] furosemide 40 mg tablet (Lasix) 40 mg PO DAILY PRN Edema 01/18/22 [History Last Taken Unknown] pantoprazole 40 mg tablet,delayed release 40 mg PO DAILY 01/18/22 [History Last Taken Unknown] lidocaine-prilocaine 2.5 %-2.5 % topical cream 1 applic topical ONCE PRN port access 30 days #30 grams 01/21/22 [Rx Last Taken Unknown] polysaccharide iron complex 150 mg iron capsule (Ferrex) 150 mg PO DAILY #90 caps 03/25/22 [Rx Last Taken Unknown] cholecalciferol (vitamin D3) 325 mcg (13,000 unit) capsule 325 mcg PO DAILY 04/17/22 [History Last Taken Unknown] nystatin 100,000 unit/gram topical cream 1 applic topical ONCE #30 grams 05/06/22 [Rx Last Taken Unknown] albuterol sulfate 90 mcg/actuation aerosol inhaler 2 puff inhalation Q4H PRN PRNSHORT 09/10/22 [History Last Taken Unknown] atorvastatin 20 mg tablet 20 mg PO DAILY #90 tabs 09/11/22 [Rx Last Taken Unknown] carvedilol 3.125 mg tablet (Coreg) 3.125 mg PO BID #60 tabs 09/11/22 [Rx Last Taken Unknown] calcium carbonate 500 mg calcium (1,250 mg) chewable tablet (Calcium 500) 500 mgPO BID 30 days #60 tabs 09/26/22 [Rx Last Taken Unknown] magnesium oxide 400 mg PO DAILY 30 days #30 tabs 09/26/22 [Rx Last Taken Unknown] Allergy/AdvReac Type Severity Reaction Status Date / Time Penicillins Allergy Mild rash Verified 09/26/22 06:42 ciprofloxacin [From Cipro] AdvReac Nausea/Vom/ Verified 09/26/22 06:42 Diarrhea sulfamethoxazole AdvReac Nausea/Vom/ Verified 09/26/22 06:42 [From Bactrim] Diarrhea trimethoprim [From Bactrim] AdvReac Nausea/Vom/ Verified 09/26/22 06:42 Diarrhea Family History (Reviewed 08/28/22 @ 15:35 by Eddy Butterfield [employer] IC LAYOUT DESIGNER, INTE[employer]ATED [employer] IC LAYOUT DESIGNER-C) Brother Aneurysm Heart disease Mother Heart disease Cancer Father No problems noted. Surgical History BLADDER RESECTION Encounter for adjustment and management of vascular access device History of hysterectomy Social History Smoking Status: Current every day smoker tobacco type: cigarettes ROS ROS ED Constitutional Constitutional ED: Denies chills or fever(s) ENT ENT ED: Reports rhinorrhea; Denies sore throat Cardiovascular Cardiovascular: Denies chest pain Respiratory/Chest Respiratory/Chest: Reports cough and dyspnea Gastrointestinal Gastrointestinal: Denies abdominal pain, diarrhea, nausea or vomiting Genitourinary Genitourinary ED: Denies dysuria Musculoskeletal Musculoskeletal: Denies back pain or myalgias Integumentary Denies rash Neurologic Neurologic: Denies headache(s) Hematologic/Lymphatic Hematologic/Lymphatic: Reports easy bleeding and easy bruising EXAM Physical Exam Const Vital Signs: 09/26/22 06:39 09/26/22 06:53 09/26/22 07:37 Temperature 96.5 F L 97 F L Temperature Source Temporal Oral Pulse Rate 99 66 Respiratory Rate 20 H 19 H Respiratory Effort Labored Respiratory Pattern Blood Pressure 164/100 H 182/69 H Blood Pressure Mean 121 106 Pulse Ox 91 93 Oxygen Delivery Method Room Air Room Air 09/26/22 08:07 Temperature Temperature Source Pulse Rate 82 Respiratory Rate 20 H Respiratory Effort Respiratory Pattern Normal Blood Pressure Blood Pressure Mean Pulse Ox Oxygen Delivery Method Positive well nourished and well developed General Appearance ED: well developed HEENT Reports moist mucous membranes HEENT Narrative: No tongue or lip swelling no oral lesions no airway edema or compromise Eyes PERRL and EOMs intact bilaterally Neck supple and no JVD Chest Wall palpation of chest normal Resp Resp Narrative: Patient has mild tachypnea breath sounds are diminished throughout and there is diffuse expiratory wheeze and rhonchi noted. However no nasal flaring retractions or accessory muscle use Cardio regular rate and regular rhythm GI normal to inspection, nondistended, normoactive bowel sounds, non-tender, non-distended and no masses Auscultation: normoactive bowel sounds Palpation: soft Extremity normal to inspection Extremity Narrative: No asymmetric edema no pitting edema negative Homans' sign bilaterally Neuro oriented x3 and CN's II-XII intact bilaterally Sensorium / Orientation: alert Psych mental status grossly normal Skin no rashes or lesions noted MDM MDM MDM Narrative Medical decision making narrative: Patient presented to the ER with complaint of shortness of breath after startingcarvedilol. She does have a history of smoking and recently quit 1 year ago andprior to that states she smoked 1 to 2 packs a day for multiple years but deniesany formal diagnosis of COPD emphysema or need for supplemental oxygen. Chart review reveals that less than 1% of people can experience bronchospasm or pneumonitis with carvedilol. However there is also concern patient could be developing pneumonia pneumothorax pleural effusion or have some electrolyte abnormality causing her symptoms and therefore blood work was obtained. Patientshows chronic anemia which is at patient's baseline. Chest x-ray reveals no acute lung pathology. Labs show chronic renal insufficiency with a creatinine of 1.54 which is actually improved from baseline. Her potassium is slightly lowat 3.3 but mainly her calcium is 6.3 and magnesium 1.2 which would be causes forher shortness of breath. Secondary to this case was discussed with nephrology who recommends that patient can be given oral supplementation at this time as she is not having tetany or severe distress or hypoxia. The patient was informed of this treatment plan and also recommended she follow-up with nephrology on an outpatient basis. At this time as she is not hypoxic or in acute respiratory distress there is no need for further work-up and she can otherwise be safely discharged with symptomatic care Lab Data Attestation: I reviewed the patient's lab results. Labs: Laboratory Results - last 24 hr 09/26/22 09/26/22 09/26/22 07:28 07:28 07:28 WBC 9.2 RBC 3.70 L Hgb 10.8 L Hct 35.1 L MCV 94.9 MCH 29.2 MCHC 30.8 L RDW Std Deviation 55.4 H RDW Coeff of Mica 15.9 H Plt Count 158 MPV 8.6 Immature Gran % (Auto) 0.300 Neut % (Auto) 71.9 H Lymph % (Auto) 16.9 L [place] % (Auto) 6.1 Eos % (Auto) 4.0 Baso % (Auto) 0.8 Absolute Neuts (auto) 6.6 Absolute Lymphs (auto) 1.56 Nucleated RBC % 0 Sodium 148 H Potassium 3.3 L Chloride 124 H Carbon Dioxide 20.0 L Anion Gap 4 L BUN 29 H Creatinine 1.54 H Estim Creat Clear Calc 40.67 Est GFR (MDRD) Af Amer 43 L Est GFR (MDRD) Non-Af 35 L BUN/Creatinine Ratio 18.8 Glucose 95 Calcium 6.3 L* Magnesium 1.2 L Radiography Diagnostic Testing: Clinical Impression(s) from Imaging Studies Chest X-Ray 09/26/22 07:03 IMPRESSION: No acute abnormality is seen. Electronically Signed: Raheem Alvarez MD at 8:10 EST , Chest x-ray as interpreted by the emergency medicine physician reveals no acute infiltrate pneumothorax or pleural effusion Discharge Plan Triage Chief Complaint: Shortness of Breath ED Provider: Todd Delgado Dx/Rx/DC Orders Clinical Impression: Hypocalcemia, Hypomagnesemia, Chronic kidney insufficiency, Dyspnea Instructions: Hypocalcemia Dc, Hypomagnesemia Dc Prescriptions: New magnesium oxide 400 mg magnesium tablet 400 mg PO DAILY 30 Days Qty: 30 0RF calcium carbonate [Calcium 500] 500 mg calcium (1,250 mg) tablet,chewable 500 mg PO BID 30 Days Qty: 60 0RF No Action furosemide [Lasix] 40 mg tablet 40 mg PO DAILY PRN (Reason: Edema) ondansetron HCl 4 mg tablet 4 mg PO DAILY Label Comments: take 1 tablet by mouth every 8 hours dextroamphetamine sulfate 10 mg tablet 10 mg PO DAILY Label Comments: take 1 tablet by mouth twice a day pantoprazole 40 mg tablet,delayed release (DR/EC) 40 mg PO DAILY Label Comments: take 1 tablet by mouth daily apixaban 5 mg tablet 5 mg PO DAILY cholecalciferol (vitamin D3) 325 mcg (13,000 unit) capsule 325 mcg PO DAILY nystatin 100,000 unit/gram cream 1 applic topical ONCE Qty: 30 4RF albuterol sulfate 90 mcg/actuation HFA aerosol inhaler 2 puff inhalation Q4H PRN PRN (Reason: SHORT) tramadol 50 MG tablet 50 mg PO BID PRN PRN (Reason: Pain 1-10 Or Fever) trazodone 50 MG tablet 50 mg PO QHS lidocaine-prilocaine 2.5-2.5 % cream 1 applic topical ONCE PRN (Reason: port access) 30 Days Qty: 30 2RF polysaccharide iron complex [Ferrex 150] 150 mg iron capsule 150 mg PO DAILY Qty: 90 0RF atorvastatin 20 mg tablet 20 mg PO DAILY Qty: 90 3RF carvedilol [Coreg] 3.125 mg tablet 3.125 mg PO BID Qty: 60 12RF Rx Instructions: must administer with a meal/food Primary Care Provider: Parminder Guajardo Referrals: Parminder Guajardo DO [Primary Care Provider] - Activity Restrictions/Additional Instructions: Your work-up today does not show any pneumonia or fluid within your lungs. It does indicate that your shortness of breath is most likely from your low calciumand magnesium. Please take the supplements as directed and if you have any further concerns or worsening of symptoms please return for repeat evaluation Disposition Disposition: Home, Self Care What to do if you have Problems For any increased pain, shortness of breath, bleeding, nausea or vomiting, chestpain, or any unexpected problems, contact your Primary Care Provider. Call [facility] ([phone]) or report to the closest Emergency Room. Call 911 if necessary. 09/26/22 0851 <Electronically signed by Todd Delgado DO> Cosigner Signature (if applicable): CC: Dr. Parminder Guajardo DO ~ Signed [facility] Work Phone: Evaluation note* Diagnosis Onset Date Resolution Status Non-ischemic cardiomyopathy chronic Anemia of chronic disease ch ronic Bladder cancer chronic Dizziness chronic Hypokalemia chronic Urothelial carcinoma of bladder chronic Encounter for education reso lved Anemia of chronic disease ch ronic Bladder cancer chronic Dizziness chronic [facility] Work Phone: Evaluation note* Diagnosis Onset Date Resolution Status Anemia of chronic disease ch ronic Bladder cancer chronic Dizziness chronic Anemia of chronic disease ch ronic Bladder cancer chronic Iron deficiency anemia chron ic Hypokalemia chronic Urothelial carcinoma of bladder chronic Encounter for education reso [facility] Work Phone: Evaluation note* Diagnosis Onset Date Resolution Status Anemia of chronic disease ch ronic Bladder cancer chronic Iron deficiency anemia chron ic Hypokalemia chronic Urothelial carcinoma of bladder chronic Encounter for education reso lved Dizziness chronic Non-ischemic cardiomyopathy chronic Primary osteoarthritis, left shoulder acute [facility] Work Phone: Evaluation note* Diagnosis Onset Date Resolution Status Anemia of chronic disease ch ronic Bladder cancer chronic Iron deficiency anemia chron ic Dizziness chronic Non-ischemic cardiomyopathy chronic Primary osteoarthritis, left shoulder acute Primary osteoarthritis, left shoulder acute Anemia of chronic disease ch ronic Bladder cancer chronic Iron deficiency anemia chron ic Hypokalemia chronic Urothelial carcinoma of bladder chronic [facility] Work Phone: Evaluation note* Diagnosis Onset Date Resolution Status Hypokalemia chronic Urothelial carcinoma of bladder chronic Encounter for education reso ed [facility] Chronic kidney disease chron ic Iron deficiency anemia chron ic Dizziness chronic Non-ischemic cardiomyopathy chronic Urothelial carcinoma of bladder chronic [facility] Work Phone: Evaluation note* Diagnosis Onset Date Resolution Status Dizziness chronic Non-ischemic cardiomyopathy chronic Urothelial carcinoma of bladder chronic [facility] Work Phone: Evaluation note* Diagnosis Acute cough- Primary Unable to care for self Pneumonia of both lower lobes due to infectious organism documented [facility] Author [facility]el[facility] Note Date/Time February 28, 2025 7:52 pm [facility] Medical Records Department [address] [place] [address] H&P Exam - Hospitalist 02/28/25 1840 MR#: [id number] Acct: [id number] Name: LETTY MORENO Rep #:[id number] : 1950 74 From: Jelani aguilar DO PCP: Dr. Parminder uGajardo DO Status:ADM I N Location: [place] [id number] HPI - General General Date of Admission: 02/28/25 Date of Service: 02/28/25 Chief Complaint: Adult failure to thrive HPI Narrative LETTY TREVINO, is a 74 F who presented to [facility] ED on 02/28/2025 with adult failure to thrive. Medical history is significant for bladder cancer s/p cystectomy with ileal conduit and neoadjuvant chemotherapy, CKD stage IV, chronic anemia due to iron deficiency and kidney disease, COPD andDVT. Patient lives at home alone. Daughter is medical power of securities attorney. Daughter notes that patient has been doing very poorly recently. She has had persistent nausea with intermittent vomiting and diarrhea along with worsening weakness and falls at home. She has essentially been unable to care for self athome. Daughter noted that Adult Protective Services was apparently supposed to come to the house tomorrow to assess her living situation. Patient had labs drawn this morning and then saw Dr. Stone in the office. Labs were notable for hemoglobin 7.0 (baseline closer to 8), sodium 136, potassium 2.7, chloride 114, bicarb 8, BUN 37, creatinine 2.74 (apparently at baseline), magnesium 1.3, calcium 6.7. Given these findings and that she looked dehydrated, Dr. Stone senther to the ED for further evaluation. Patient reported to the ED physician thatshe wanted to go home, but it was noted she was not alert and oriented x 3 and lacked medical decision-making capacity. Thus, medical hold was placed and hospitalist was contacted for admission. I saw the patient at bedside in the ED. Unfortunately no children were present. Patient was laying back in bed andin no acute distress. She was able to tell me her name and where she was but did not know the month or year. She also had poor insight into what brought herinto the hospital today. She denied any acute pain or discomfort currently. Will be admitted for further management. 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 COPD (chronic obstructive pulmonary disease) Chronic systolic (congestive) heart failure Hypokalemia UTI (urinary tract infection) Anemia due to chemotherapy Chemotherapy management, encounter for Urothelial carcinoma of bladder Neutropenia due to and not concurrent with chemotherapy (~03/2019) Thrombocytopenia due to drugs Anemia associated with chemotherapy Frequent headaches Fatigue Cancer-related pain Smoking history Other hydronephrosis Gross hematuria Chemotherapy management, encounter for Home Medications ?Medication ?Instructions ?Recorded ?Last Taken ?Type ondansetron HCl 4 mg tablet 4 mg PO DAILY 09/10/21 History apixaban 5 mg tablet 5 mg PO DAILY 01/18/2202/28 History pantoprazole 40 mg tablet,delayed 40 mg PO DAILY 01/1802/28/25 History release nystatin 100,000 unit/gram topical 1 applic topical ON CE #30 grams 05/06/22 Unknown Rx cream ipratropium 20 mcg-albuterol 100 1 puff inhalation BID 02/14/23 02/28/25 History mcg/actuation mist for inhalation (Combivent Respimat) polysaccharide iron complex 150 mg 350 mg PO BID 02/1402/28/25 History iron capsule (Ferrex) albuterol sulfate 90 mcg/actuation 2 puff inhalation Q 6 PRN wheezing 11/15/24 02/28/25 History aerosol inhaler dextroamphetamine sulfate 10 mg 20 mg PO QDAY 11/15/24 Unknown History tablet furosemide 20 mg tablet 20 mg PO DAILY 02/28/25 Unkn own History Allergy/AdvReac Type Severity Reaction Status Date / Time Penicillins Allergy Mild rash Verified 02/28/25 13:20 ciprofloxacin (From Cipro) AdvReac Nausea/Vom/ Verified 02/28/25 13:20 Diarrhea sulfamethoxazole (From AdvReac Nausea/Vom/ Verified 02/28/25 13:20 Bactrim) Diarrhea trimethoprim (From Bactrim) AdvReac Nausea/Vom/ Verified 02/28/25 13:20 Diarrhea Family History Brother Aneurysm Heart disease Mother Heart disease Cancer Father No problems noted. Surgical History BLADDER RESECTION History of hysterectomy Encounter for adjustment and management of vascular access device Social History adopted: No Smoking Status: Heavy Smoker (>10/day) ROS Review of Systems ROS Unobtainable: due to mental status Constitutional Constitutional: Reports fatigue and weakness; Denies chills or fever(s) Eyes Eyes: Denies change in vision Cardiovascular Cardiovascular: Denies chest pain Respiratory/Chest Respiratory/Chest: Denies shortness of breath at rest Gastrointestinal Gastrointestinal: Reports diarrhea, nausea and vomiting; Denies abdominal pain Musculoskeletal Musculoskeletal: Denies arthralgias or myalgias Vital Signs Vital Signs Vital Signs: 02/28/25 13:18 02/28/25 14:17 02/28/25 14:23 Temperature 98 F Temperature Source Oral Pulse Rate 80 70 Respiratory Rate 19 H 21 H Respiratory Effort Normal Short of Breath Respiratory Pattern Normal Blood Pressure 87/53 L 112/45 L Blood Pressure Mean 64 67 Pulse Ox 99 100 Oxygen Delivery Method Room Air Room Air 02/28/25 15:00 02/28/25 16:08 02/28/25 17:00 Temperature Temperature Source Pulse Rate 70 Respiratory Rate 18 Respiratory Effort Respiratory Pattern Blood Pressure 115/38 L Blood Pressure Mean 63 Pulse Ox 99 98 Oxygen Delivery Method Room Air 02/28/25 18:00 Temperature Temperature Source Pulse Rate 78 Respiratory Rate 17 Respiratory Effort Respiratory Pattern Blood Pressure 111/76 Blood Pressure Mean 87 Pulse Ox 94 Oxygen Delivery Method Room Air Physical Exam Const alert, no apparent distress and average body habitus Constitutional Narrative: Elderly female, fatigued and chronically ill-appearing, alert and oriented to person and place but not time, otherwise laying back comfortably in bed and in no acute distress. General Appearance: cooperative and comfortable HEENT normocephalic, head/scalp atraumatic, hearing grossly normal bilaterally and nasal mucous membranes and turbinates normal HEENT Narrative: Dry mucous membranes. Eyes PERRL, EOMs intact bilaterally and conjunctivae normal Neck full ROM Chest inspection of chest normal Resp normal respiratory effort, normal air movement, no use of accessory muscles and clear to auscultation bilaterally Cardio regular rate, regular rhythm, no murmurs and peripheral pulses 2+ throughout GI normal to inspection, nondistended, normoactive bowel sounds, soft to palpation,non-tender and non-distended Back/Spine normal ROM Extremity normal to inspection, full ROM and no pedal edema Neuro moves all extremities and no focal motor deficits Sensorium / Orientation: oriented to person and oriented to place Speech: speech normal Psych Mood & Affect: anxious Results Lab / Micro Data 02/28/25 14:31 02/28/25 14:31 Labs: Laboratory Results - last 24 hr 02/28/25 14:31: WBC 10.5, RBC 2.31 L, Hgb 7.0 L, Hct 21.8 L, MCV 94.4, MCH 30.3,MCHC 32.1, RDW Std Deviation 59.8 H, RDW Coeff of Mica 17.3 H, Plt Count 175, MPV11.8, Immature Gran % (Auto) 0.600, Neut % (Auto) 81.5 H, Lymph % (Auto) 11.5 L,[place] % (Auto) 6.1, Eos % (Auto) 0.2, Baso % (Auto) 0.1, Absolute Neuts (auto) 8.6 H, Absolute Lymphs (auto) 1.20, Nucleated RBC % 0, Sodium 136, Potassium 2.7L*, Chloride 114 H, Carbon Dioxide 7.9 L*, Anion Gap 15, BUN 37 H, Creatinine 2.74 H, Est GFR (MDRD) Non-Af 18 L, BUN/Creatinine Ratio 13.4, Glucose 96, Calcium 6.7 L, Magnesium 1.3 L 02/28/25 16:03: PT 26.9 H, INR 2.4, APTT 34.8 02/28/25 16:09: Lactic Acid < 1.0 Assessment & Plan Assessment/Plan (1) Adult failure to thrive: (2) Nausea vomiting and diarrhea: PLAN: Plan Patient is a 74-year-old female who presented [facility] ED on 02/28/2025 with adult failure to thrive. 1. Adult failure to thrive with altered mental status versus cognitive impairment ? Admit under inpatient status to PCU. PT/OT/case management consulted. Lives at home alone, has had progressively worsening functional status due to nausea/vomiting/diarrhea, poor p.o. intake, worsening weakness and falls. Was apparently found at home in her own feces recently. Adult Protective Services was planning to go to the house on 03/01. Medical hold is in place currently as patient lacks decision-making capacity; alert and oriented to person and place but not time on admission and poor insight into medical condition. Strongly suspect patient will need placement on discharge. Avoid sedating medications asable. 2. CKD stage IV with worsening metabolic acidosis ? Nephrology consulted. Creatinine 2.77 on admit which appears to be at baseline. However, as worsening acidosis with bicarb 7.9. Notably bicarb was low at 8.2 on labs in 02/08, and was 13 on 11/12. Previously normal in November 2023. Sodium 136 and chloride 114 with no anion gap noted, so is consistent with NAGMA. Will give 150ml/hr of sodium bicarb infusion over 5 hours this evening with repeat labs tomorrow morning. Hold home Lasix. Appreciate further nephrology recommendations. 3. Hypokalemia and hypomagnesemia ? Potassium 2.7, magnesium 1.3 on admit. Presume secondary to GI losses. Replete as needed. Monitor daily labs. 4. Worsening chronic anemia due to iron deficiency and kidney disease ? Hemoglobin 7.0 on admit, baseline around 8. Denies dark or bloody stools recently. Denies any blood in vomitus. Giving IV fluids as above so suspect hemoglobin may drop, but patient is hemodynamically stable so we will hold on transfusion for now. Follow-up a.m. CBC. Continue home iron supplement. 5. Nausea/vomiting/diarrhea ? Unclear etiology but is likely related to worsening metabolic acidosis as above. No episodes of vomiting or diarrhea since admission. Utilize medications for symptom control as needed. Okay for regular diet as tolerated. Further treatment as above. Chronic medical conditions: ? History of bladder cancer: Follows with Dr. Stone, last office visit on morningof admission. History of cystectomy with conduit and neoadjuvant chemotherapy. No inpatient oncology needs, continue close outpatient follow-up. ? Chronic HFrEF: Follows with cardiology, last office visit in November. Most recent echo in December showed EF 45% with mild global hypokinesis of the LV and stage I diastolic dysfunction. Appeared volume down on admit as noted above. Holding home Lasix. ? History of DVT: Had DVT back in March 2020, unclear on how extensive. Will decrease home dosing to Eliquis 2.5 mg twice daily given poor kidney function and anemia as above. ? COPD: Stable on room air on admit. Continue home inhalers. ? GERD: Continue home PPI. DVT prophylaxis: Not indicated, on Eliquis CODE STATUS: Full code, unverified Expected disposition: TBD Total clinical time spent by myself addressing the patient's medical issues, reviewing all the data, and collaborating with patient's care team: 75 minutes. Charges/Coding Visit Charges Inpatient E&M: 15646 Init Hosp L3 02/28/251951 <Electronically signed by Jelani Dais DO> Cosigner Signature (if applicable): CC: Dr. Jelani Dias, DO; Dr. Parminder Guajardo, DO~ Signed [facility] Work Phone: Hospital Discharge instructions Additional Instructions Your work-up today does not show any pneumonia or fluid within your lungs. It does indicate that your shortness of breath is most likely from your low calcium and magnesium. Please take the supplements as directed and if you have any further concerns or worsening of symptoms please [facility] Work Phone: Reason for referral (narrative)No reason for referral information availableWProtestant Deaconess Hospital Work Phone: Summary Purpose Family History Relationship Condition Age at Onset Recorded Date/T jane brother Aneurysm Unknown Heart disease Unknown mother Heart disease Unknown Malignant neoplasm Unknown Advance Directives Advance Directive Response Recorded Date/ Time Advance Directives No December 28 0 12:41pm Living Will No March 20 0 1:11pm Power of Front End Web Designer No March 20 1:11pm Advance Directive Response Recorded Date/ Time Advance Directives No December 28 0 11:41am Living Will No March 20 0 12:11pm Power of Front End Web Designer No March 20 12:11pm Advance Directive Response Recorded Date/ Time Advance Directives No December 28 0 11:41am Living Will No September 26 023 6:43am Power of Front End Web Designer No September 26, 2022 6:43am Advance Directive Response Recorded Date/ Time Advance Directives No December 28 0 12:41pm Living Will No September 26 7:43am Power of Front End Web Designer No September 26, 2022 7:43am Latest Code Status on File Code Status Date Activated Date Inactivated Comments Full Code 03/21/2020 1:18 AM 03/25/2020 4:35 PM Question Answer Comments Full Code Order Discussed With: Patient Date Activated Date Inactivated Comments 03/21/2020 1:18 AM 03/25/2020 4:35 PM Question Answer Comments Full Code Order Discussed With: Patient Advance Directive Response Recorded Date/ Time Advance Directives No December 28 0 12:41pm Advance Directive Response Recorded Date/ Time Living Will No December 29, 2019 1 2:41pm Do you have a Healthcare Power of Front End Web Designer? No December 29, 2019 12:41pm Advance Directives No December 28 0 12:41pm Advance Directive Response Recorded Date/ Time Living Will No December 29, 2019 1 2:41pm Do you have a Healthcare Power of Front End Web Designer? No December 29, 2019 12:41pm Advance Directives No December 28 0 12:41pm Do you have a Healthcare Power of Front End Web Designer? Yes February 28, 2025 2:22pm Hospital Course Note HNO ID: [id number] Author: Christiane Alcala MD Service: Hospital Medicine Author Type: Physician Type: Discharge Summary Filed: 03/25/2020 3:46 PM Note Text: DISCHARGE SUMMARY PATIENT NAME: Letty Trevino Code Status: Full Code Highest Readmission Risk [...] Doctor: Shonna Alcala MD Primary Care Provider: Parminder Guajardo DO My Medical Team Members: Treatment Team: Attending Provider: Shonna Alcala MD Consulting: Shailesh Yin Consulting: Karis Azar (more content not included)... Chief Complaint and Reason for Visit Chief Complaint f/u ACUTE - DIZZY/PAIN ONC/HEM DIZZINESS H/O BLADDER CANCER R/O BRAIN MET 2WKS NO LABS REVIEW MRI Reason for Visit Non-ischemic cardiom yopathy Anemia of chronic disease Bladder cancer Dizziness Hypokalemia Urothelial carcinoma of bladder Encounter for education Anemia of chronic disease Bladder cancer Dizziness Chief Complaint DIZZINESS H/O BLADDE R CANCER R/O BRAIN MET 2WKS NO LABS REVIEW MRI BLADDER CANCER 1YR LABS REVIEW CT ONC/HEM Reason for Visit Anemia of chronic di sease Bladder cancer Dizziness Anemia of chronic disease Bladder cancer Iron deficiency anemia Hypokalemia Urothelial carcinoma of bladder Encounter for education Chief Complaint BLADDER CANCER 1YR LABS REVIEW CT ONC/HEM Cardiac/ ONC pt seeing JHR OK per DRENCHER LEFT SHOULDER Rm 1 xray DIZZINESS Amb Documentation Reason for Visit Anemia of chronic di sease Bladder cancer Iron deficiency anemia Hypokalemia Urothelial carcinoma of bladder Encounter for education Dizziness Non-ischemic cardiomyopathy Primary osteoarthritis, left shoulder Chief Complaint BLADDER CANCER 1YR LABS REVIEW CT ONC/HEM Cardiac/ ONC pt seeing JHR OK per DRENCHER LEFT SHOULDER Rm 1 xray DIZZINESS Amb Documentation SOB Reason for Visit Anemia of chronic di sease Bladder cancer Iron deficiency anemia Hypokalemia Urothelial carcinoma of bladder Encounter for education Dizziness Non-ischemic cardiomyopathy Primary osteoarthritis, left shoulder Chief Complaint BLADDER CANCER 1YR LABS REVIEW CT Cardiac/ ONC pt seeing JHR OK per DRENCHER LEFT SHOULDER Rm 1 xray DIZZINESS Amb Documentation SOB LEFT SHOULDER COPD 3MO LABS ONC/HEM COPD Reason for Visit Anemia of chronic di sease Bladder cancer Iron deficiency anemia Dizziness Non-ischemic cardiomyopathy Primary osteoarthritis, left shoulder Primary osteoarthritis, left shoulder Anemia of chronic disease Bladder cancer Iron deficiency anemia Hypokalemia Urothelial carcinoma of bladder Encounter for education Chief Complaint ONC/HEM 6MO LABS Amb Documentation 6 M FU LABS Reason for Visit Hypokalemia Urothelial carcinoma of bladder Encounter for education Anemia of chronic disease Bladder cancer Chronic kidney disease Iron deficiency anemia Dizziness Non-ischemic cardiomyopathy Urothelial carcinoma of bladder Chief Complaint Amb Documentation 6 M FU LABS LABS Reason for Visit Dizziness Non-ischemic cardiomyopathy Urothelial carcinoma of bladder Chief Complaint 6 M FU LABS LABS labs Reason for Visit Dizziness Non-ischemic cardiomyopathy Urothelial carcinoma of bladder Chief Complaint Admit Date 6 M FU November 12, 2024 9:5 7am LIZZETH PORT DRAW November 12, 2024 10: 31am Reason for Visit Admit Date Non-ischemic cardiomyopathy November 12, 2024 9:57am Urothelial carcinoma of bladder November 122024 9:57am Chief Complaint Admit Date 6 M FU November 12, 2024 9:5 7am LIZZETH PORT DRAW November 12, 2024 10: 31am LOST TO F/U LABS PRIOR November 15, 2024 4:00pm OTHER CARDIOMYOPATHIES November 25, 2024 9:38am ROUTINE November 25, 2024 9:5 5am Reason for Visit Admit Date Non-ischemic cardiomyopathy November 12, 2024 9:57am Urothelial carcinoma of bladder November 122024 9:57am Anemia of chronic disease November 15 4:00pm Bladder cancer November 15, 2024 4:0 0pm Chronic kidney disease November 15, 2024 4:00pm Headache November 15, 2024 4:0 0pm Chief Complaint Admit Date 6 M FU November 12, 2024 9:5 7am LIZZETH PORT DRAW November 12, 2024 10: 31am LOST TO F/U LABS PRIOR November 15, 2024 4:00pm OTHER CARDIOMYOPATHIES November 25, 2024 9:38am ROUTINE November 25, 2024 9:5 5am Nonrheumatic mitral (valve) insufficienc y December 08, 2024 10:05am Chief Complaint Admit Date 6 M FU November 12, 2024 9:5 7am LIZZETH PORT DRAW November 12, 2024 10: 31am LOST TO F/U LABS PRIOR November 15, 2024 4:00pm OTHER CARDIOMYOPATHIES November 25, 2024 9:38am ROUTINE November 25, 2024 9:5 5am Nonrheumatic mitral (valve) insufficienc y December 08, 2024 10:05am Headache, unspecified December 29, 2024 2:4 2pm Chief Complaint Admit Date 6 M FU November 12, 2024 9:5 7am LIZZETH PORT DRAW November 12, 2024 10: 31am LOST TO F/U LABS PRIOR November 15, 2024 4:00pm OTHER CARDIOMYOPATHIES November 25, 2024 9:38am ROUTINE November 25, 2024 9:5 5am Nonrheumatic mitral (valve) insufficienc y December 08, 2024 10:05am Headache, unspecified December 29, 2024 2:4 2pm ONC/HEM January 11, 2025 7:15 am 5WKS LABS REVIEW CT/MRI(CHECK FOR MRI RE SULTS) January 11, 2025 8:50am Reason for Visit Admit Date Non-ischemic cardiomyopathy November 12, 2024 9:57am Urothelial carcinoma of bladder November 122024 9:57am Anemia of chronic disease November 15 4:00pm Bladder cancer November 15, 2024 4:0 0pm Chronic kidney disease November 15, 2024 4:00pm Headache November 15, 2024 4:0 0pm Hypokalemia January 11, 2025 7:15 am Urothelial carcinoma of bladder January 7:15am Encounter for education January 11, 2025 7:15am Anemia of chronic disease January 11 8:50am Bladder cancer January 11, 2025 8:50 am Chronic kidney disease January 11, 2025 8 :50am Headache January 11, 2025 8:50 am Tinnitus January 11, 2025 8:50 am Chief Complaint Admit Date 6 M FU November 12, 2024 9:5 7am LIZZETH PORT DRAW November 12, 2024 10: 31am LOST TO F/U LABS PRIOR November 15, 2024 4:00pm OTHER CARDIOMYOPATHIES November 25, 2024 9:38am ROUTINE November 25, 2024 9:5 5am Nonrheumatic mitral (valve) insufficienc y December 08, 2024 10:05am Headache, unspecified December 29, 2024 2:4 2pm 5WKS LABS REVIEW CT/MRI(CHECK FOR MRI RE SULTS) January 11, 2025 8:50am cathflo February 28, 2025 10:3 0am 6WKS LABS INJ February 28, 2025 10:5 5am Reason for Visit Admit Date Non-ischemic cardiomyopathy November 12, 2024 9:57am Urothelial carcinoma of bladder November 122024 9:57am Anemia of chronic disease November 15 4:00pm Bladder cancer November 15, 2024 4:0 0pm Chronic kidney disease November 15, 2024 4:00pm Headache November 15, 2024 4:0 0pm Anemia of chronic disease January 11 8:50am Bladder cancer January 11, 2025 8:50 am Chronic kidney disease January 11, 2025 8 :50am Headache January 11, 2025 8:50 am Tinnitus Rashmi 10th, 2025 8:50 am Hypokalemia February 28, 2025 10:3 0am Urothelial carcinoma of bladder February 10:30am Encounter for education February 28, 2025 10:30am Nausea vomiting and diarrhea February 28, 2025 10:55am Bladder cancer February 28, 2025 10:5 5am Chronic kidney disease February 28, 2025 1 0:55am Chief Complaint Admit Date 6 M FU November 12, 2024 9:5 7am LIZZETH PORT DRAW November 12, 2024 10: 31am LOST TO F/U LABS PRIOR November 15, 2024 4:00pm OTHER CARDIOMYOPATHIES November 25, 2024 9:38am ROUTINE November 25, 2024 9:5 5am Nonrheumatic mitral (valve) insufficienc y December 08, 2024 10:05am Headache, unspecified December 29, 2024 2:4 2pm 5WKS LABS REVIEW CT/MRI(CHECK FOR MRI RE SULTS) January 11, 2025 8:50am cathflo February 28, 2025 10:3 0am 6WKS LABS INJ February 28, 2025 10:5 5am 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, 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 February 28, 2025 6:45pm Reason for Visit Admit Date Non-ischemic cardiomyopathy November 12, 2024 9:57am Urothelial carcinoma of bladder November 122024 9:57am Anemia of chronic disease November 15 4:00pm Bladder cancer November 15, 2024 4:0 0pm Chronic kidney disease November 15, 2024 4:00pm Headache November 15, 2024 4:0 0pm Anemia of chronic disease January 11 8:50am Bladder cancer January 11, 2025 8:50 am Chronic kidney disease January 11, 2025 8 :50am Headache January 11, 2025 8:50 am Tinnitus January 11, 2025 8:50 am Hypokalemia February 28, 2025 10:3 0am Urothelial carcinoma of bladder February 10:30am Encounter for education February 28, 2025 10:30am Nausea vomiting and diarrhea February 28, 2025 10:55am Bladder cancer February 28, 2025 10:5 5am Chronic kidney disease February 28, 2025 1 0:55am Adult failure to thrive February 28, 2025 6:45pm Nausea vomiting and diarrhea February 28, 2025 6:45pm Anemia of chronic disease February 28 6:45pm 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 DATE CREATED AUTHOR AUTHOR'S ORGANIZ ATION 02/24/2025 [facility] Goals (unrecognized section and content) Goals may be documented in a n alternate sectionGoals may be documented in an alternate sectionGoals may be documented in an alternate sectionGoals may be documented in an alternate sectionGoals may be documented in an alternate sectionGoals may be documented in an alternate sectionGoals may be documented in an alternate sectionGoals may be documented in an alternate sectionGoals may be documented in an alternate sectionGoals may be documented in an alternate sectionGoals may be documented in an alternate sectionGoals may be documented in an alternate sectionGoals may be documented in an alternate sectionGoals may be documented in an alternate sectionGoals may be documented in an alternate section Care Teams (unrecognized sec tion and content) Team Status: Active Member Role Status Dates Dr. Parminder Guajardo , DO Family Provider Active Dr. Parminder Guajardo , DO Primary Care Provider Active Team Status: Inactive Member Role Status Dates Dr. Parminder Guajardo , DO Primary Care Provider, Referring Provider Active Dr. Brian Stone MD Attending Provider Active Team Status: Active Member Role Status Dates Dr. Parminder Guajardo , DO Primary Care Provider, Family Pr ovider Active Dr. Brian Stone MD Attending Provider Active Dr. Stuart Marino MD Referring Provider Active Team Status: Inactive Member Role Status Dates Dr. Parminder Guajardo , DO Primary Care Provider Active Eunice Silva INTEGRATED CIRCUIT IC LAYOUT DESIGNER, INTEGRATED CIRCUIT IC LAYOUT DESIGNER-C Attending Provider, Referring Provider Active Team Status: Inactive Member Role Status Dates Dr. Parminder Guajardo , DO Primary Care Provider Active Dr. Brian Stone MD Attending Provider, Referring Pro vider Active Team Status: Inactive Member Role Status Dates Dr. Parminder Guajardo , DO Primary Care Provider, Referring Provider Active Eddy Butterfield INTEGRATED CIRCUIT IC LAYOUT DESIGNER, INTEGRATED CIRCUIT IC LAYOUT DESIGNER-C Attending Provider Active Team Status: Inactive Member Role Status Dates Dr. Parminder Guajardo , DO Primary Care Provider, Referring Provider Active Jeff Lamar MD Attending Provider Active Team Status: Inactive Member Role Status Dates Dr. Parminder Guajardo , DO Primary Care Provider Active Dr. Albino Moreau MD Attending Provider Active Team Status: Active Member Role Status Dates Dr. Parminder Guajardo , DO Primary Care Provider Active Dr. Deven Kelly MD Attending Provider Active Team Status: Active Member Role Status Dates Dr. Parminder Guajardo , DO Primary Care Provider Active Eddy Butterfield INTEGRATED CIRCUIT IC LAYOUT DESIGNER, INTEGRATED CIRCUIT IC LAYOUT DESIGNER-C Attending Provider Active Team Status: Inactive Member Role Status Dates Dr. Parminder Guajardo , DO Primary Care Provider Active Eddy Butterfield INTEGRATED CIRCUIT IC LAYOUT DESIGNER, INTEGRATED CIRCUIT IC LAYOUT DESIGNER-C Attending Provider, Referring Pro vider Active Team Status: Inactive Member Role Status Dates Dr. Parminder Guajardo DO Primary Care Provider Active Dr. Todd Delgado , DO Emergency Provider Active Team Status: Active Member Role Status Dates Dr. Parminder Guajardo , DO Primary Care Provider Active Dr. Deven Kelly MD Attending Provider Active Eddy Butterfield INTEGRATED CIRCUIT IC LAYOUT DESIGNER, INTEGRATED CIRCUIT IC LAYOUT DESIGNER-C Referring Provider Active Team Status: Active Member Role Status Dates Dr. Parminder Guajardo , DO Primary Care Provi jarret, Referring Provider, Other Provider Active Dr. Bolivar Swartz , DO Attending Provider Active Team Status: Inactive Member Role Status Dates Dr. Parminder Guajardo DO Primary Care Provider Active Dr. Todd Delgado , DO Attending Provider, Emergency Pr ovider Active Team Status: Inactive Member Role Status Dates Dr. Parminder Guajardo DO Primary Care Provi jarret, Attending Provider, Referring Provider Active Team Status: Inactive Member Role Status Dates Dr. Parminder Guajardo DO Primary Care Provider, Referring Provider Active Dr. Albino Moreau MD Attending Provider Active Team Status: Active Member Role Status Dates Dr. Parminder Guajardo , DO Primary Care Provider Active Kaity Monteiro Attending Provider Active Team Status: Inactive Member Role Status Dates Dr. Parminder Guajardo , DO Primary Care Provider Active CHERIE Kaplan Attending Provider Active Electric Switch Tester Relationship Specialty Start Date End Date Parminder Guajardo DO [address] [place] [address] PCP - General Family Medicine 08/23/19 Team Status: Inactive Member Role Status Dates Dr. Parminder Guajardo DO Primary Care Provider Active Dr. Lucy Zepeda MD Attending Provider, Referri ng Provider Active Team Status: Inactive Member Role Status Dates Dr. Parminder Guajardo DO Primary Care Provider Active Dr. Lucy Zepeda MD Attending Provider, Referri ng Provider Active RACHELL ARMENDARIZ Other Provider Active Electric Switch Tester Relationship Specialty Start Date End Date Parminder Guajardo DO [address] [place] [address] PCP - General Family Medicine 08/23/19 Electric Switch Tester Relationship Specialty Start Date End Date Parminder Guajardo DO [address] [place] [address] PCP - General [facility] 08/23/19 Team Status: Active Member Role Status Dates Dr. Parminder Guajardo DO Primary Care Provider Active Team Status: Inactive Member Role Status Dates Dr. Parminder Guajardo DO Primary Care Provider Active Start: November 12, 2024 End: November 12, 2024 Dr. Parminder Guajardo DO Referring Provider Active Start: November 12, 2024 End: November 12, 2024 Dr. Albino Moreau MD Attending Provider Active S tart: November 12, 2024 End: November 12, 2024 Team Status: Inactive Member Role Status Dates Dr. Parminder Guajardo DO Primary Care Provider Active Start: November 12, 2024 End: November 12, 2024 Dr. Albino Moreau MD Attending Provider Active S tart: November 12, 2024 End: November 12, 2024 Dr. Albino Moreau MD Referring Provider Active S tart: November 12, 2024 End: November 12, 2024 Team Status: Inactive Member Role Status Dates Dr. Parminder Guajardo DO Primary Care Provider Active Start: November 15, 2024 End: November 15, 2024 Dr. Parminder Guajardo DO Referring Provider Active Start: November 15, 2024 End: November 15, 2024 Dr. Brian Stone MD Attending Provider Active S tart: November 15, 2024 End: November 15, 2024 Team Status: Inactive Member Role Status Dates Dr. Parminder Guajardo DO Primary Care Provider Active Start: November 25, 2024 End: November 25, 2024 Dr. Albino Moreau MD Attending Provider Active S tart: November 25, 2024 End: November 25, 2024 Dr. Albino Moreau MD Referring Provider Active S tart: November 25, 2024 End: November 25, 2024 Team Status: Active Member Role Status Dates Dr. Parminder Guajardo DO Primary Care Provider Active Start: November 25, 2024 End: November 25, 2024 Dr. Roscoe Nguyễn MD Attending Provider Active Start: November 25, 2024 End: November 25, 2024 Dr. Albino Moreau MD Referring Provider Active S tart: November 25, 2024 End: November 25, 2024 Team Status: Inactive Member Role Status Dates Dr. Parminder Guajardo DO Primary Care Provider Active Start: December 08, 2024 End: December 08, 2024 Dr. Albino Moreau MD Attending Provider Active S tart: December 08, 2024 End: December 08, 2024 Dr. Albino Moreau MD Referring Provider Active S tart: December 08, 2024 End: December 08, 2024 Team Status: Active Member Role Status Dates Dr. Parminder Guajardo DO Primary Care Provider Active Start: December 08, 2024 Dr. Albino Moreau MD Attending Provider Active S tart: December 08, 2024 Team Status: Inactive Member Role Status Dates Dr. Parminder Guajardo DO Primary Care Provider Active Start: December 29, 2024 End: December 29, 2024 Dr. Brian Stone MD Attending Provider Active S tart: December 29, 2024 End: December 29, 2024 Dr. Brian Stone MD Referring Provider Active S tart: December 29, 2024 End: December 29, 2024 Team Status: Active Member Role Status Dates Dr. Parminder Guajardo DO Primary Care Provider Active Start: January 11, 2025 Dr. Parminder Guajardo DO Family Provider Active Sta rt: January 11, 2025 Dr. Brian Stone MD Attending Provider Active S tart: January 11, 2025 Dr. Stuart Marino MD Referring Provider Active Start: January 11, 2025 Team Status: Inactive Member Role Status Dates Dr. Parminder Guajardo DO Primary Care Provider Active Start: January 11, 2025 End: January 11, 2025 Dr. Parminder Guajardo DO Referring Provider Active Start: January 11, 2025 End: January 11, 2025 Dr. Brian Stone MD Attending Provider Active S tart: January 11, 2025 End: January 11, 2025 Team Status: Active Member Role/Relationship Status Dates Dr. Parminder Guajardo DO Primary Care Provider Active Team Status: Inactive Member Role/Relationship Status Dates Dr. Parminder Guajardo DO Primary Care Provider Active Start: November 12, 2024 End: November 12, 2024 Dr. Parminder Guajardo DO Referring Provider Active Start: November 12, 2024 End: November 12, 2024 Dr. Albino Moreau MD Attending Provider Active S tart: November 12, 2024 End: November 12, 2024 Team Status: Inactive Member Role/Relationship Status Dates Dr. Parminder Guajardo DO Primary Care Provider Active Start: November 12, 2024 End: November 12, 2024 Dr. Albino Moreau MD Attending Provider Active S tart: November 12, 2024 End: November 12, 2024 Dr. Albino Moreau MD Referring Provider Active S tart: November 12, 2024 End: November 12, 2024 Team Status: Inactive Member Role/Relationship Status Dates Dr. Parminder Guajardo DO Primary Care Provider Active Start: November 15, 2024 End: November 15, 2024 Dr. Parminder Guajardo DO Referring Provider Active Start: November 15, 2024 End: November 15, 2024 Dr. Brian Stone MD Attending Provider Active S tart: November 15, 2024 End: November 15, 2024 Team Status: Inactive Member Role/Relationship Status Dates Dr. Parminder Guajardo DO Primary Care Provider Active Start: November 25, 2024 End: November 25, 2024 Dr. Albino Moreau MD Attending Provider Active S tart: November 25, 2024 End: November 25, 2024 Dr. Albino Moreau MD Referring Provider Active S tart: November 25, 2024 End: November 25, 2024 Team Status: Active Member Role/Relationship Status Dates Dr. Parminder Guajardo DO Primary Care Provider Active Start: November 25, 2024 End: November 25, 2024 Dr. Roscoe Nguyễn MD Attending Provider Active Start: November 25, 2024 End: November 25, 2024 Dr. Albino Moreau MD Referring Provider Active S tart: November 25, 2024 End: November 25, 2024 Team Status: Inactive Member Role/Relationship Status Dates Dr. Parminder Guajardo DO Primary Care Provider Active Start: December 08, 2024 End: December 08, 2024 Dr. Albino Moreau MD Attending Provider Active S tart: December 08, 2024 End: December 08, 2024 Dr. Albino Moreau MD Referring Provider Active S tart: December 08, 2024 End: December 08, 2024 Team Status: Active Member Role/Relationship Status Dates Dr. Parminder Guajardo DO Primary Care Provider Active Start: December 08, 2024 Dr. Albino Moreau MD Attending Provider Active S tart: December 08, 2024 Team Status: Inactive Member Role/Relationship Status Dates Dr. Parminder Guajardo DO Primary Care Provider Active Start: December 29, 2024 End: December 29, 2024 Dr. Brian Stone MD Attending Provider Active S tart: December 29, 2024 End: December 29, 2024 Dr. Brian Stone MD Referring Provider Active S tart: December 29, 2024 End: December 29, 2024 Team Status: Inactive Member Role/Relationship Status Dates Dr. Parminder Guajardo DO Primary Care Provider Active Start: January 11, 2025 End: January 11, 2025 Dr. Parminder Guajardo DO Referring Provider Active Start: January 11, 2025 End: January 11, 2025 Dr. Brian Stone MD Attending Provider Active S tart: January 11, 2025 End: January 11, 2025 Team Status: Active Member Role/Relationship Status Dates Dr. Parminder Guajardo DO Primary Care Provider Active Start: February 28, 2025 Dr. Parminder Guajardo DO Family Provider Active Sta rt: February 28, 2025 Dr. Brian Stone MD Attending Provider Active S tart: February 28, 2025 Dr. Stuart Marino MD Referring Provider Active Start: February 28, 2025 Team Status: Inactive Member Role/Relationship Status Dates Dr. Parminder Guajardo DO Primary Care Provider Active Start: February 28, 2025 End: February 28, 2025 Dr. Parminder Guajardo DO Referring Provider Active Start: February 28, 2025 End: February 28, 2025 Dr. Brian Stone MD Attending Provider Active S tart: February 28, 2025 End: February 28, 2025 Team Status: Active Member Role/Relationship Status Dates Dr. Parminder Guajardo DO Primary Care Provider Active Start: February 28, 2025 Dr. Steve Weathers DO Emergency Provider Active Start: February 28, 2025 Dr. Jelani Dias DO Admit Provider Active Start: February 28, 2025 Dr. Jelani Dias DO Attending Provider Active Start: February 28, 2025 Dr. Jelani Dias DO Other Provider Active Start: February 28, 2025 Source Comments (unrecognize d section and content) In the event this informatio n is protected by the Federal Confidentiality of Alcohol and Drug Abuse Patient Records regulations: The Federal rules restrict any use of the information to criminally investigate or prosecute any alcohol or drug abuse patient.[facility] the event this information is protected by the Federal Confidentiality of Alcohol and Drug Abuse Patient Records regulations: The Federal rules restrict any use of the information to criminally investigate or prosecute any alcohol or drug abuse patient.[facility] the event this information is protected by the Federal Confidentiality of Alcohol and Drug Abuse Patient Records regulations: The Federal rules restrict any use of the information to criminally investigate or prosecute any alcohol or drug abuse patient.[facility] the event this information is protected by the Federal Confidentiality of Alcohol and Drug Abuse Patient Records regulations: The Federal rules restrict any use of the information to criminally investigate or prosecute any alcohol or drug abuse patient.[facility] Reason for Visit (unrecogniz ed section and content) Reason Comments Results Reason Comments Cough Chest congestion, SO B, wheeze, headache x 1 week FOR RECORDS PERTAINING TO PATIENTS WHO ARE [...] BE BASED ON THE PRIMARY CLINICAL RECORDS. [facility] provides no warranty or guarantee of the accuracy or completeness of information in this document.
[2025-03-01] VITALS (28 sets, daily range): BP systolic 92–142; BP diastolic 33–73; PULSE 63–94; RESP 13–23; TEMP 35.8–37.2; O2SAT 97–100
[2025-03-01] MEDS: Potassium Chloride 10mEq/100mL 10 MEQ/100 ML IV.SOLN. 100 MEQ IV BOLUS (00:28)
[2025-03-01] MEDS: Sodium Bicarbonate 50 MEQ in Dextrose 5%-Water (1000mL Bag) 1,000 ML 150 MEQ IV (00:28)
[2025-03-01] MEDS: Magnesium Sulfate 4gm/100mL 4 GM/100 ML IV.SOLN. IV (01:32)
[2025-03-01 02:36] LABS: Mucous, Urine 0 SEEN /hpf (<or=2+); Squamous Epithelial Cells - UA 0 SEEN /hpf (5-10)
[2025-03-01 02:39] LABS: Glucose, Dipstick Normal (Normal); Ketone-Dipstick Negative (Negative); Leukocyte Esterase-Dipstick 500 /ul (Negative); Nitrite-Dipstick Negative (Negative); Occult Blood-Urine 150 /ul (Negative); Protein-Dipstick 100 mg/dl (Negative); Specific Gravity, Urine 1.015 (1.002-1.030); Urine Bilirubin Dipstick Negative (Negative)
[2025-03-01 02:50] LABS: Color, Urine SEE COMMENT BELOW (Yellow); Red Blood Cells-Urine 5-10 SEEN /hpf (0-5)
[2025-03-01] MEDS: Nystatin Ointment 1 APPLIC TOPICAL ×3 (06:01→21:48)
[2025-03-01 06:21] LABS: Hematocrit 19.3 % (37-47); Hemoglobin 6.1 g/dL (12.0-15.0); Mean Corp Hgb Conc 31.6 g/dL (32-36); Mean Corpuscular Volume 94.1 fL (81-99); Mean Platelet Vol. 10.5 fl (6.2-12.0); Platelet Count 138 K/mm3 (150-450); RBC Distribution Width CV 17.2 % (11.6-14.6); RBC Distribution Width SD 59.3 fl (35.1-43.9); Red Blood Count 2.05 M/mm3 (4.2-5.4); White Blood Count 7.5 K/mm3 (4.4-11.0)
[2025-03-01 07:09] LABS: Magnesium 2.6 mg/dL (1.5-2.2)
[2025-03-01 07:23] LABS: Anion Gap 12 (5-15); BUN 32 mg/dL (4-19); BUN/Creat Ratio 13.0 RATIO (10-20); Calcium,Total 6.4 mg/dL (7.6-11.0); Carbon Dioxide 9.5 mmol/L (21.0-32.0); Chloride 115 mmol/L (98-108); Estimated Creatinine Clearance 16.92 ml/min (50-250); Glucose 125 mg/dL (70-99); Potassium 2.6 mmol/L (3.3-5.1)
[2025-03-01] MEDS: 0.9 % NaCl (Sterile) Posiflush 10 mL IV ×2 (08:19→11:08)
[2025-03-01] MEDS: Potassium Chloride 20mEq/100mL 20 MEQ/100 ML IV.SOLN. 100 MEQ IV BOLUS ×2 (08:19→09:40)
--- NOTE | 2025-03-01 10:26 | CM.UR ---
Social Work--Director Of Adult Epilepsy [facility] Pt has a housing case manager w/[employer], Bridgette Lee, phone number [phone]. Bridgette did call SW this morning, informed SW of the home situation. She states pt is not doing what she is supposed to do to care for herself at home. The family has been trying to hide pt's keys, but she finds them and still drives. APS has been called. Pt presents as alert and oriented however making it difficult for APS to intervene. Pt has not been assessed for competency in the past. SW plans to follow up w/family today. GENARO Boyd
--- NOTE | 2025-03-01 10:30 | PCM.CONS.R ---
Assessment & Plan Assessment/Plan (1) SOO (acute kidney injury): (2) Metabolic acidosis: (3) Adult failure to thrive: (4) CKD (chronic kidney disease) stage 4, GFR 15-29 ml/min: PLAN: Plan This is a 74-year-old female with past medical history significant for bladder cancer status post cystectomy with ileal conduit and neoadjuvant chemo now on observation, history of chronic anemia from iron deficiency, history of COPD, DVT and CKD stage IV with baseline creatinine ranging around 2.4 to 2.6 mg/dL (followed by Dr. Zepeda) who presented to the emergency room yesterday as her daughter was concerned patient had been having persistent nausea, vomiting, diarrhea, admitted for failure to thrive, SOO, worsening metabolic acidosis, hypokalemia hypomagnesemia. Nephrology consulted in view of worsening metabolic acidosis. Patient has known history of chronic kidney disease stage IV with baseline creatinine ranging around 2.4 to 2.6 mg/dL. She was last seen by Dr. Zepeda in office in December 2023, kidney function was at baseline at that time. Serum creatinine was 2.77 yesterday, today her creatinine is 2.45 mg/dL. Potassium remains low at 2.6 today. Patient is receiving oral potassium and IV piggyback potassium today. Will also add on daily potassium chloride. Bicarb was 7.0 on admission, improved to 9.5 today anion gap 12 today; per chart patient had been having nausea, vomiting, diarrhea, she also has a history of CKD which could be contributing factors to low bicarbonate. Patient did receive sodium bicarbonate 1 amp and IV fluids yesterday. We will continue with bicarbonate drip today. At this time there is no acute indication for renal replacement therapy. Reviewed home medication list, no recent ERIBERTO or ARB's, no NSAIDs, patient is on diuretic, we will continue holding Lasix. Serum creatinine is near baseline. Patient is nonoliguric. Volume status appears mildly hypovolemic and will continue with IV fluids. Reviewing past lab work in November 2024 bicarbonate was 13.1, January 11, 2025 bicarbonate 7.8, and February 08, 2025 bicarb 8.2. Patient will possibly need oral bicarbonate at time of discharge. Further orders forthcoming as hospitalization evolves, thank you for allowing us to participate in the care of Ms. Trevino. Assessment and plan reviewed with Dr. Peres. HPI Consult Data Date of Consult: 03/01/25 HPI Narrative HPI Narrative: XOCHITL TREVINO, is a 74 F who presented to the emergency room yesterday with adult failure to thrive. Patient lives at home alone, daughter had noted patient to be doing very poorly recently with persistent nausea, vomiting and diarrhea. Patient has past medical history significant for bladder cancer status post cystectomy with ileal conduit and neoadjuvant chemo, history of chronic anemia from iron deficiency, history of COPD, DVT and CKD stage IV with baseline creatinine ranging around 2.4 to 2.6 mg/dL (followed by Dr. Zepeda). Workup in the emergency room included lab work which showed hemoglobin 7.0, sodium 136, bicarbonate 7.0, creatinine 2.75, magnesium 1.3, K+ 2.6. Patient was admitted for adult failure to thrive, hypokalemia, SOO with worsening metabolic acidosis. Nephrology consulted in view of worsening metabolic acidosis and SOO. Patient is alert to name but having difficult time recalling recent events, she is sleepy this morning. Information gathered from the chart. 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 COPD (chronic obstructive pulmonary disease) Chronic systolic (congestive) heart failure Hypokalemia UTI (urinary tract infection) Anemia due to chemotherapy Chemotherapy management, encounter for Urothelial carcinoma of bladder Neutropenia due to and not concurrent with chemotherapy (~03/2019) Thrombocytopenia due to drugs Anemia associated with chemotherapy Frequent headaches Fatigue Cancer-related pain Smoking history Other hydronephrosis Gross hematuria Chemotherapy management, encounter for Home Medications ?Medication ?Instructions ?Recorded ?Last Taken ?Type ondansetron HCl 4 mg tablet 4 mg PO DAILY 09/10/21 02/28/25 History apixaban 5 mg tablet 5 mg PO DAILY 01/18/22 02/28/25 History pantoprazole 40 mg tablet,delayed 40 mg PO DAILY 01/18/22 02/28/25 History release nystatin 100,000 unit/gram topical 1 applic topical ONCE #30 grams 05/06/22 Unknown Rx cream ipratropium 20 mcg-albuterol 100 1 puff inhalation BID 02/14/23 02/28/25 History mcg/actuation mist for inhalation (Combivent Respimat) polysaccharide iron complex 150 mg 350 mg PO BID 02/14/23 02/28/25 History iron capsule (Ferrex) albuterol sulfate 90 mcg/actuation 2 puff inhalation Q6 PRN wheezing 11/15/24 02/28/25 History aerosol inhaler dextroamphetamine sulfate 10 mg 20 mg PO QDAY 11/15/24 Unknown History tablet furosemide 20 mg tablet 20 mg PO DAILY 02/28/25 Unknown History Allergy/AdvReac Type Severity Reaction Status Date / Time Penicillins Allergy Mild rash Verified 02/28/25 13:20 ciprofloxacin (From Cipro) AdvReac Nausea/Vom/ Verified 02/28/25 13:20 Diarrhea sulfamethoxazole (From AdvReac Nausea/Vom/ Verified 02/28/25 13:20 Bactrim) Diarrhea trimethoprim (From Bactrim) AdvReac Nausea/Vom/ Verified 02/28/25 13:20 Diarrhea Family History Brother Aneurysm Heart disease Mother Heart disease Cancer Father No problems noted. Surgical History BLADDER RESECTION History of hysterectomy Encounter for adjustment and management of vascular access device Social History adopted: No Smoking Status: Heavy Smoker (>10/day) ROS ROS Narrative as in HPI Physical Exam Narrative Alert and oriented x 3, no apparent distress, sleepy S1, S2, RRR Lungs sound clear anteriorly and posteriorly. On room air. No wheezing, rhonchi or rales Abdomen soft, nontender No pitting edema Lab / Micro Data 03/01/25 06:10 03/01/25 06:10 Labs: Laboratory Results - last 24 hr 02/28/25 14:31: WBC 10.5, RBC 2.31 L, Hgb 7.0 L, Hct 21.8 L, MCV 94.4, MCH 30.3, MCHC 32.1, RDW Std Deviation 59.8 H, RDW Coeff of Mica 17.3 H, Plt Count 175, MPV 11.8, Immature Gran % (Auto) 0.600, Neut % (Auto) 81.5 H, Lymph % (Auto) 11.5 L, Scurry % (Auto) 6.1, Eos % (Auto) 0.2, Baso % (Auto) 0.1, Absolute Neuts (auto) 8.6 H, Absolute Lymphs (auto) 1.20, Nucleated RBC % 0, Sodium 136, Potassium 2.7 L*, Chloride 114 H, Carbon Dioxide 7.9 L*, Anion Gap 15, BUN 37 H, Creatinine 2.74 H, Est GFR (MDRD) Non-Af 18 L, BUN/Creatinine Ratio 13.4, Glucose 96, Calcium 6.7 L, Phosphorus 4.8 H, Magnesium 1.3 L 02/28/25 16:03: PT 26.9 H, INR 2.4, APTT 34.8 02/28/25 16:09: Lactic Acid < 1.0 02/28/25 21:00: Urine Color SEE COMMENT BELOW, Urine Clarity Turbid, Urine pH 8.0, Ur Specific [place] 1.015, Urine Protein 100 H, Urine Glucose (UA) Normal, Urine Ketones Negative, Urine Occult Blood 150 H, Urine Nitrite Negative, Urine Bilirubin Negative, Urine Urobilinogen Normal, Ur Leukocyte Esterase 500 H, Urine RBC 5-10 SEEN, Urine WBC 25-50 SEEN, Ur Squamous Epith Cells 0 SEEN, Amorphous Sediment 3+, Urine Bacteria 3+, Urine Mucus 0 SEEN 02/28/25 21:30: Blood Type B POSITIVE, Antibody Screen NEGATIVE, Crossmatch See Detail 03/01/25 06:10: WBC 7.5, RBC 2.05 L, Hgb 6.1 L, Hct 19.3 L, MCV 94.1, MCH 29.8, MCHC 31.6 L, RDW Std Deviation 59.3 H, RDW Coeff of Mica 17.2 H, Plt Count 138 L, MPV 10.5, Sodium 136, Potassium 2.6 L*, Chloride 115 H, Carbon Dioxide 9.5 L*, Anion Gap 12, BUN 32 H, Creatinine 2.45 H, Estim Creat Clear Calc 16.92 L, Est GFR (MDRD) Non-Af 20 L, BUN/Creatinine Ratio 13.0, Glucose 125 H, Calcium 6.4 L*, Phosphorus 4.1, Magnesium 2.6 H Micro: Microbiology 02/28/25 21:00 Urine, Random Urine Culture - Preliminary GNR lactose exhibitions curator
--- NOTE | 2025-03-01 10:40 | CASEMGMT ---
Social Work SW created in [facility] a list of jail facilities in network w/pt's insurance, in pt's preferred geographic area and complete w/quality and resource use data. Pt is currently asleep, SW called daughter to complete the assessment, she is on her way here, is bringing in the POA documents. SW will meet w/her when she gets here. GENARO Boyd
[2025-03-01] MEDS: APIXABAN 2.5 MG TABLET (WCH) PO ×2 (11:08→20:26)
[2025-03-01] MEDS: Calcium Gluconate IV 2 GM in 0.9% Normal Saline (100mL Bag) 100 ML IV (11:30)
--- NOTE | 2025-03-01 11:34 | WOUNDNOTE ---
Was asked to see patient for leaking urostomy bag. Pt has a history of bladder cancer with ileal conduit. removed the ostomy appliance. stoma measures approx 7/8 and is slightly oval in shape. stoma is flush with the skin. peristomal skin is intact. cleansed skin with warm water. pat dry. applied new i piece flat Franca appliance. hooked bag to a mao bag with connector piece. pt tolerated well. will monitor.
--- NOTE | 2025-03-01 12:04 | CASEMGMT ---
Social Work SW met w/daughter at length in regard to pt's prior level of function and anticipated discharge plan. PCP: Dr. José Miguel Guajardo Specialists: Dr. Kumar--GI, Dr. Stone--oncology, Dr. Moreau--cardiology, Dr. Zepeda--nephrology Insurance/Prescription Coverage: [facility] Medicare Dual Complete [facility]acy: [facility]: Son Aashish and Daughter Apryl LW/POA: Daughter just brought in, she is POA, Aashish is alternate Living arrangements/Prior level of function: Pt lives home alone, though daughter spends significant time at the home. Pt normally gets around w/o an assistive device, up until about two weeks ago. Daughter helps with all ADLS including shopping, cleaning, paying bills, med organization, bathing, dressing. Pt was able to cook for herself but does not clean up after herself at all. Daughter tries to help pt clean herself up, pt often refuses. Pt often also does not want to change her clothes. Pt has a urostomy and if the bag breaks, pt will not clean herself up. Pt has irritated skin and pt will not put anything on it, will not let the daughter put anything on it either. Pt will make some of her own appts, though does it when inconvenient for the daughter. Daughter also makes appts though the pt will cancel the appts. Daughter is pt's main caregiver and pt often is angry w/daughter, takes it out on me. Transportation: Pt was driving until 5 weeks ago, though family has taken away her keys in the past. Daughter states pt has narcolepsy and is not certain how pt is even allowed to drive. She may see if the pt's doctor will say she is no longer allowed to drive. Daughter takes pt to where she needs to go. Daughter does go w/pt to appts. DME: Pt has a hospital bed, shower chair, potty chair, cane. Pt has a urostomy and all needed supplies. Pt has O2, 2LPM on exertion, through [employer], has a portable device--this is newer for pt. Pt had a walker and wheelchair though daughter cannot find them, if pt goes home she would want to look into getting a walker and w/c for pt. Pt just purchased a $1900 electric wheelchair that needs assembly--daughter states pt cannot afford this and is returning it. HHC: Pt has had skilled HHC in the past but it has not lasted long as pt has stopped the services. Pt does have aide services through [facility], Bridgette Lee is CM, Bridgette knows pt is here, see prior note of CUAUHTEMOC conversation w/Bridgette. Daughter provides 17 paid hours of aide services through [employer]. Daughter provides many more hours per week than this of care however. SNF: Pt has never been to a SNF, and will likely refuse. Daughter went on to share more information w/CUAUHTEMOC in regard to pt. She states up until two weeks ago pt was up and walking. Overall however, she states she thinks pt is depressed and has been for 20 years. She has never been formally diagnosed as per pt's daughter however. Pt does not take any antidepressants, as it interferes with the medication she takes for narcolepsy. Apryl thinks this started when her step dad . Pt then got remarried and seemed to be doing better. Her last did everything for her. However, her most recent in July. Daughter states pt has never been alone. She states pt sleeps probably 20 of every 24 hours. Pt at this point is doing nothing for herself. As an example she states pt will cook and leave the egg shells on the counter. She states the home is much drain cleaner now compared to when she and pt's son went into the home in July. They have been slowly getting the home cleaned. They have been working on getting the upstairs cleaned, and daughter at some point may move in, though still does not feel it's a good environment. In July they had 39 cats and a dog. The pt is now down to 7 cats, and the dog is 16 and was to be put down yesterday, the daughter is taking him today to be put down. She knows the pt will be upset about this, is not sure what she will tell her yet. She states the pt is not cleaning herself up at all. Pt was covered in feces and pt did not want daughter to clean her up. Additionally, pt has been hallucinating for about a month, daughter was told this could be due to kidney failure. CUAUHTEMOC asked if pt has ever been assessed for competency. She states she has asked her PCP but he has not as yet been willing it seems. She thinks he avoids the topic. Apryl has thought about changing PCPs but pt does not want to do so, as this physician will prescribe the narcolepsy medications. Pt will also avoid going to certain doctors, in particular the corrugated box machine operator. Apryl describes pt as she knows enough to be dangerous. Pt has been scammed quite a few times daughter states. Also she spends money and has spent $20,000 since her in July. Pt has had an urostomy bag since 2019, when she had bladder cancer. She states pt has never learned how to care for it. She states pt will purposely break it so daughter has to come help her. Daughter also states pt will make appts when daughter is working, or right when pt is getting off of a 12 hour shift. Daughter states pt is basically neglecting herself, and expressed frustration w/this. She states if pt would care for herself or let others care for her, a lot of her issues would not be present. She thinks this is due to pt's depression but also pt's need to be in control. Apryl thinks she doesn't want to go to a [place] [facility] [place] facility as then she would not be able to do what she wants to do, and would not be able to smoke when she wants to do so. Pt may need dialysis, pt has already told daughter she does not want dialysis. However daughter thinks that pt does not want to . Dr. Zepeda is to see pt today, so will see if dialysis will be needed or not and go from there. Daughter already called hospice for information, but states pt is 74 and young. CUAUHTEMOC gently reminded daughter if pt does not want dialysis that is her choice, and we can call hospice if appropriate, daughter states understanding. Pt's daughter is willing to have pt return home if she is doing better. She told pt if she leaves AMA however she will call APS. CUAUHTEMOC did provide to daughter the list of [facility] facilities should this be needed. Daughter did ask about the medical hold, SW explained it expires in 24 hours, daughter may or may not renew depending on the criteria for the medical hold. The daughter had already looked up the information about the medical hold on [facility] website. CUAUHTEMOC spoke w/Dr. Valentino, she may not be extending the medical hold when it expires. SW will continue to follow, will need to see how pt does with therapy. If pt needs dialysis and does not want dialysis, a further hospice discussion may be appropriate. If pt were to go home, she may need a walker, wheelchair, and home health referral. Also, APS is already involved, aware pt is here, will need updated on pt's discharge plan. GENARO Boyd
[2025-03-01] MEDS: Sodium Bicarbonate 150 MEQ in Dextrose 5%-Water (1000mL Bag) 1,000 ML 100 MEQ IV (13:47)
--- NOTE | 2025-03-01 14:21 | PN_ITS ---
Subjective Subjective Patient seen and examined. She is alert and communicative. SHe was admitted with a complaint of failure to thrive. She is not very cooperative and not really answering questions. Unable to do review of systems. Objective Data Objective Data Vital Signs: Vital Signs Temp Pulse Resp BP Pulse Ox O2 Del Method 96.9 F L 73 18 107/40 L 100 Room Air 03/01/25 11:00 03/01/25 11:00 03/01/25 11:00 03/01/25 11:00 03/01/25 11:00 03/01/25 11:00 Oxygen Delivery Method Room Air Weight: 147 lb 4.301 oz Body Mass Index (BMI) 29.7 Intake & Output: Intake and Output for Last 24 Hours 02/27/25 02/28/25 03/01/25 23:59 23:59 23:59 Intake Total 2250 / 2250 1820 / 1820 Output Total 1300 / 1300 Balance 2250 / 1350 520 / 520 Medical Nutrition Assessment Dietitian: Malnutrition Criteria Met Start: 03/01/25 10:54 Freq: Status: Active Protocol: Document 03/01/25 10:56 RMA (Rec: 03/01/25 10:56 RMA [id number]) Nutrition Malnutrition Evidence of Yes Malnutrition Exists Malnutrition (severe Chronic ): Evidenced By Suboptimal Energy Intake (Severe),Weight Loss (Severe) Clinical Problem Chronic Disease or Condition Related Malnutrition Etiology severe protein-calorie malnutrition in the context of chronic disease and debility/failure to thrive related to altered GI function, N/V/D and inadequate energy/ oral intake Signs/Symptoms as evidenced by ~15-16% unintentional weight loss x 3 months and oral intake meeting less than 75% estimated nutrition needs x 3 months. Status Active Problem Recommendation Dietitian Will liberalize diet to regular/no added salt; Recommendations/ encourage PO at meals. Changes Will add 120mL ensure plus HP 3 times per day w/ medpass. Will add magic cup w/ lunch and dinner for tolerance. Monitor renal labs and need to further restrict diet if PO improves. Lab / Micro Data 03/01/25 06:10 03/01/25 06:10 Labs: Laboratory Results - last 24 hr 02/28/25 14:31: WBC 10.5, RBC 2.31 L, Hgb 7.0 L, Hct 21.8 L, MCV 94.4, MCH 30.3, MCHC 32.1, RDW Std Deviation 59.8 H, RDW Coeff of Mica 17.3 H, Plt Count 175, MPV 11.8, Immature Gran % (Auto) 0.600, Neut % (Auto) 81.5 H, Lymph % (Auto) 11.5 L, Foard % (Auto) 6.1, Eos % (Auto) 0.2, Baso % (Auto) 0.1, Absolute Neuts (auto) 8.6 H, Absolute Lymphs (auto) 1.20, Nucleated RBC % 0, Sodium 136, Potassium 2.7 L*, Chloride 114 H, Carbon Dioxide 7.9 L*, Anion Gap 15, BUN 37 H, Creatinine 2.74 H, Est GFR (MDRD) Non-Af 18 L, BUN/Creatinine Ratio 13.4, Glucose 96, C alcium 6.7 L, Phosphorus 4.8 H, Magnesium 1.3 L 02/28/25 16:03: PT 26.9 H, INR 2.4, APTT 34.8 02/28/25 16:09: Lactic Acid < 1.0 02/28/25 21:00: Urine Color SEE COMMENT BELOW, Urine Clarity Turbid, Urine pH 8.0, Ur Specific Ida 1.015, Urine Protein 100 H, Urine Glucose (UA) Normal, Urine Ketones Negative, Urine Occult Blood 150 H, Urine Nitrite Negative, Urine Bilirubin Negative, Urine Urobilinogen Normal, Ur Leukocyte Esterase 500 H, Urine RBC 5-10 SEEN, Urine WBC 25-50 SEEN, Ur Squamous Epith Cells 0 SEEN, Amorphous Sediment 3+, Urine Bacteria 3+, Urine Mucus 0 SEEN 02/28/25 21:30: Blood Type B POSITIVE, Antibody Screen NEGATIVE, Crossmatch See Detail 03/01/25 06:10: WBC 7.5, RBC 2.05 L, Hgb 6.1 L, Hct 19.3 L, MCV 94.1, MCH 29.8, MCHC 31.6 L, RDW Std Deviation 59.3 H, RDW Coeff of Mica 17.2 H, Plt Count 138 L, MPV 10.5, Sodium 136, Potassium 2.6 L*, Chloride 115 H, Carbon Dioxide 9.5 L*, Anion Gap 12, BUN 32 H, Creatinine 2.45 H, Estim Creat Clear Calc 16.92 L, Est GFR (MDRD) Non-Af 20 L, BUN/Creatinine Ratio 13.0, Glucose 125 H, Calcium 6.4 L* , Phosphorus 4.1, Magnesium 2.6 H Micro: Microbiology 02/28/25 21:00 Urine, Random Urine Culture - Preliminary GNR lactose rn social work Physical Exam Const alert and oriented x3 Constitutional Narrative: not cooperative HEENT normocephalic, head/scalp atraumatic and oropharynx normal Mouth: dry mucous membranes Eyes EOMs intact bilaterally Neck no lymphadenopathy, supple and no JVD Lymph Lymphatic: no lymphedema noted Resp Resp Narrative: mildly diminished breath sounds bibasally, no wheezes or crackles. On room air. Cardio regular rhythm, S1 normal heart sound, S2 normal heart sound and no murmurs GI normal to inspection, nondistended, normoactive bowel sounds, soft to palpation and non-tender GI Narrative: bladder conduit in situ. Extremity normal capillary refill, no clubbing, cyanosis or edema and no calf tenderness General Extremity: no tenderness to palpation of joints or extremities Skin General Skin Exam: no breakdown Neuro CN's II-XII intact bilaterally, no focal motor deficits and no sensory deficits noted Motor Exam: general weakness Psych Psych Narrative: alert but not very cooperative with care Assessment & Plan Assessment/Plan (1) Adult failure to thrive: (2) Nausea vomiting and diarrhea: PLAN: Plan #Adult failure to thrive with cognitive impairment * patient alert and communicative. She is alert and oriented x 3 but refusing care. * has been having nausea, vomiting and diarrhea at home with decreaesd PO intake, and worsening weakness and falls. * adult protective services planning to go to her house 03/01/2025. * PT/OT On board * case management to help with placement * #CKD IV with metabolic acidosis * Cr is at baseline. * on bicarb drip. * nephrology on board * #Hypokalemia, hypomagnesemia and hypocalcemia * will replace aggressively and trend. * #Acute on chronic anemia in the setting fo CKD IV and iron deficiency anemia * Hb today is 6.1 * denies any dark stools or coffee ground emesis. * transfuse with 2 units of PRBCs. * iron profile showed low iron deficiency anemia with iron level of 23, iron saturation of 41.8 and ferritin of 549. * consult gastroenterology due to severe anemia * IV pantoprazole 40mg bid * #Acute gastroenteritis: resolving. Nausea, vomiting and diarrhea has resolved. #History of bladder cancer: s/p cystectomy with conduit and neoadjuvant chemotherapy. Follow up with oncology on outpatient basis. #HFrEF: not in exacerbation. has known EF of 45% with mild global hypokinesia and adn left ventricular and stage 1 diastolic dysfunction. #History of DVT: on eliquis 2.5mg bid. Dose adjusted due to kidney function. #COPD: on rooom air. Breathing treatment with bronchodilators #DVT prophylaxis: SCDs Disposition: Patient was apparently put on a medical hold in the ED. She is alert and communicative, and oriented x 3. I am not sure about the need for medical hold now as patient is alert and communicative and oriented x 3. She says she does not want CPR or intubation. Her daughter also clarified that patient is to be DNRCCA. She was apparently not cooperative in the ED and was threatening to leave so she was put in the ED. Now, she is alert and oriented x 3; I am concerned that putting her in a medical hold now may take away her agency to make decisions for herself. Will therefore hold off on renewing medical hold for now. Charges/Coding Visit Charges Inpatient E&M: 28652 Subs Hosp L3
[2025-03-01] MEDS: Potassium Chloride Oral Tablet 20 MEQ 40 MEQ PO (20:26)
[2025-03-02] VITALS (7 sets, daily range): BP systolic 106–131; BP diastolic 42–90; PULSE 74–97; RESP 15–24; TEMP 36.7–36.9; O2SAT 94–100
[2025-03-02] MEDS: Sodium Bicarbonate 150 MEQ in Dextrose 5%-Water (1000mL Bag) 1,000 ML 100 MEQ IV ×2 (01:17→15:32)
[2025-03-02] MEDS: Nystatin Ointment 1 APPLIC TOPICAL ×3 (05:08→21:19)
[2025-03-02] MEDS: 0.9% Saline Lock 10 ML Syringe IV (05:09)
[2025-03-02 05:24] LABS: Hematocrit 23.6 % (37-47); Hemoglobin 7.7 g/dL (12.0-15.0); Immature Granulocytes Count 0.020 X10^3/uL (0.0-0.0); Mean Corp Hgb Conc 32.6 g/dL (32-36); Mean Corpuscular Volume 91.5 fL (81-99); Mean Platelet Vol. 11.0 fl (6.2-12.0); NRBC Flagged by Analyzer 0 % (0-5); Platelet Count 163 K/mm3 (150-450); RBC Distribution Width CV 17.3 % (11.6-14.6); RBC Distribution Width SD 57.5 fl (35.1-43.9); Red Blood Count 2.58 M/mm3 (4.2-5.4); White Blood Count 6.7 K/mm3 (4.4-11.0)
[2025-03-02 05:40] LABS: Anion Gap 11 (5-15); BUN 29 mg/dL (4-19); BUN/Creat Ratio 12.3 RATIO (10-20); Calcium,Total 6.8 mg/dL (7.6-11.0); Carbon Dioxide 13.2 mmol/L (21.0-32.0); Chloride 115 mmol/L (98-108); Estimated Creatinine Clearance 17.34 ml/min (50-250); Glucose 133 mg/dL (70-99); Potassium 3.0 mmol/L (3.3-5.1)
[2025-03-02] MEDS: Calcium Gluconate IV 2 GM in 0.9% Normal Saline (100mL Bag) 100 ML IV (09:27)
[2025-03-02] MEDS: APIXABAN 2.5 MG TABLET (WCH) PO ×2 (09:29→21:21)
[2025-03-02] MEDS: Potassium Chloride 20mEq/100mL 20 MEQ/100 ML IV.SOLN. 100 MEQ IV BOLUS ×2 (09:30→11:11)
[2025-03-02] MEDS: Potassium Chloride Oral Soln 20 MEQ/15 ML UDC 40 MEQ PO (09:30)
--- NOTE | 2025-03-02 10:13 | PN_ITS ---
Subjective Subjective Patient seen and examined. She had no active complaints. Her potassium is still low at 3 today. Calcium is 6.8 today. Her Hb is up to 7.7 today. She refused GI consult today and doesnt want EGD or colonoscopy. Objective Data Objective Data Vital Signs: Vital Signs Temp Pulse Resp BP Pulse Ox O2 Del Method 98.2 F 90 18 114/42 L 99 Room Air 03/02/25 06:00 03/02/25 06:00 03/02/25 06:00 03/02/25 06:00 03/02/25 06:00 03/02/25 06:00 Oxygen Delivery Method Room Air Weight: 147 lb 4.301 oz Body Mass Index (BMI) 29.7 Intake & Output: Intake and Output for Last 24 Hours 02/28/25 03/01/25 03/02/25 23:59 23:59 23:59 Intake Total 2250 / 2250 1940 / 2060 2155 / 2155 Output Total 1900 / 2200 850 / 850 Balance 2250 / 1350 40 / -140 1305 / 1305 Medical Nutrition Assessment Dietitian: Malnutrition Criteria Met Start: 03/01/25 10:54 Freq: Status: Active Protocol: Document 03/01/25 10:56 RMA (Rec: 03/01/25 10:56 RMA [id number]) Nutrition Malnutrition Evidence of Yes Malnutrition Exists Malnutrition (severe Chronic ): Evidenced By Suboptimal Energy Intake (Severe),Weight Loss (Severe) Clinical Problem Chronic Disease or Condition Related Malnutrition Etiology severe protein-calorie malnutrition in the context of chronic disease and debility/failure to thrive related to altered GI function, N/V/D and inadequate energy/ oral intake Signs/Symptoms as evidenced by ~15-16% unintentional weight loss x 3 months and oral intake meeting less than 75% estimated nutrition needs x 3 months. Status Active Problem Recommendation Dietitian Will liberalize diet to regular/no added salt; Recommendations/ encourage PO at meals. Changes Will add 120mL ensure plus HP 3 times per day w/ medpass. Will add magic cup w/ lunch and dinner for tolerance. Monitor renal labs and need to further restrict diet if PO improves. Lab / Micro Data 03/02/25 05:10 03/02/25 05:10 Labs: Laboratory Results - last 24 hr 02/28/25 21:30: Crossmatch See Detail 03/02/25 05:10: WBC 6.7, RBC 2.58 L, Hgb 7.7 L, Hct 23.6 L, MCV 91.5, MCH 29.8, MCHC 32.6, RDW Std Deviation 57.5 H, RDW Coeff of Mica 17.3 H, Plt Count 163, MPV 11.0, Immature Gran % (Auto) 0.300, Neut % (Auto) 69.0, Lymph % (Auto) 22.2, Rhea % (Auto) 5.8, Eos % (Auto) 2.4, Baso % (Auto) 0.3, Absolute Neuts (auto) 4.6, Absolute Lymphs (auto) 1.48, Nucleated RBC % 0, Sodium 139, Potassium 3.0 L , Chloride 115 H, Carbon Dioxide 13.2 L, Anion Gap 11, BUN 29 H, Creatinine 2.39 H, Estim Creat Clear Calc 17.34 L, Est GFR (MDRD) Non-Af 21 L, BUN/Creatinine Ratio 12.3, Glucose 133 H, Calcium 6.8 L Micro: Microbiology 02/28/25 21:00 Urine, Random Urine Culture - Preliminary GNR 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 On room air. Cardio regular rate, regular rhythm, S1 normal heart sound, S2 normal heart sound, no murmurs and peripheral pulses 2+ throughout GI normal to inspection, nondistended, normoactive bowel sounds, soft to palpation, non-tender and non-distended GI Narrative: ileal conduit in situ. Back/Spine normal ROM Extremity normal to inspection, full ROM, normal capillary refill, no clubbing, cyanosis or edema, no calf tenderness and no pedal edema General Extremity: no tenderness to palpation of joints or extremities Skin General Skin Exam: no breakdown Neuro CN's II-XII intact bilaterally, moves all extremities, no focal motor deficits and no sensory deficits noted Sensorium / Orientation: oriented to person and oriented to place Speech: speech normal Motor Exam: general weakness Psych Psych Narrative: alert but not very cooperative with care Attitude: agitated Assessment & Plan Assessment/Plan (1) Adult failure to thrive: (2) Nausea vomiting and diarrhea: PLAN: Plan #Adult failure to thrive with cognitive impairment * patient alert and communicative. She is alert and oriented x 3 but refusing care. * has been having nausea, vomiting and diarrhea at home with decreaesd PO intake, and worsening weakness and falls. * adult protective services planning to go to her house 03/01/2025. * PT/OT On board * case management to help with placement * #CKD IV with metabolic acidosis * Cr is at baseline. * nephrology on board. Management as per nephrology * #Hypokalemia, hypomagnesemia and hypocalcemia * will replace aggressively and trend.potassium is 3 today, and calcium is 6.8 today. * #Acute on chronic anemia in the setting fo CKD IV and iron deficiency anemia * Hb today is up to 7.7 from 6.1 yesterday. S/p transfusion of 2 units of PRBCs. * denies any dark stools or coffee ground emesis. * iron profile showed low iron deficiency anemia with iron level of 23, iron saturation of 41.8 and ferritin of 549. * doesnt want GI consult as she doesnt want EGD or colonoscopy. * IV pantoprazole 40mg bid * #Acute gastroenteritis: resolving. Nausea, vomiting and diarrhea has resolved. #History of bladder cancer: s/p cystectomy with conduit and neoadjuvant chemotherapy. Follow up with oncology on outpatient basis. #HFrEF: not in exacerbation. has known EF of 45% with mild global hypokinesia and adn left ventricular and stage 1 diastolic dysfunction. #History of DVT: on eliquis 2.5mg bid. Dose adjusted due to kidney function. Eliquis held due to anemia. #COPD: on rooom air. Breathing treatment with bronchodilators #DVT prophylaxis: SCDs Disposition: anticipate DC tomorrow Charges/Coding Visit Charges Inpatient E&M: 53089 Subs Hosp L2
--- NOTE | 2025-03-02 14:02 | CASEMGMT ---
Social Work SW met with pt to discuss discharge plan. Pt is alert and oriented x3 and willing to speak with SW. SW broached topic of short term SNF stay for rehabilitation. Pt becoming angry that this is brought up and adamantly refusing to go to SNF. SW provided active listening and support and pt did calm down and was willing to again speak with SW. SW spoke with pt regarding her ability to care for herself at home (see SW note from 03/01 with reports of pt not caring for herself). Pt denies the concerns that her daughter has presented. Pt states that she can care for herself, get around the house on her own and get her own meals. Pt states that with the help of her son and daughter, she can return home. SW discussed home health and pt is agreeable to this. Pt did work with PT and was able to ambulate 80 ft in the hallway. Phone call to pt dgt Apryl to discuss discharge plan. CUAUHTEMOC updated Apryl that pt is alert and oriented during conversation with this SW and per physician notes yesterday, medical hold is no longer in effect. Pt is refusing to go to SNF and determined to return home at time of discharge. While pt is frustrated that she is still hospital, pt is not asking to leave the hospital while speaking with SW. CUAUHTEMOC also updated Apryl that when asked, pt states that one of her children will take her home and that her children are there daily to provide needed assistance. Apryl is frustrated as she does not feel pt is safe to return home and states that she may not continue to provide care for pt at home. Apryl is hired by [place] through [facility] to provide 17 hours of care to pt a week. Apryl states she will quit this job. CUAUHTEMOC affirmed with Apryl that she can set boundaries with pt and if she does not feel she can provide needed care to pt, she can inform pt of this. CUAUHTEMOC also informed dgt that if she or pt son can talk pt into going to a SNF, SW will assist in placement. Apryl plans to talk to her brother about pt's plan to return home and ask him to speak with pt about SNF and son to call this worker. Apryl also states that if pt returns home, she will need a walker and a wheelchair. APS will be notified when pt returns home. CUAUHTEMOC to continue to follow for dc planning. JOSEPH Wallace
--- NOTE | 2025-03-02 14:20 | PCM.PN.REN ---
Subjective Subjective Follow-up on acute kidney injury on CKD 4. Patient is quite upset, she wants to be discharged, she states that she has been eating and drinking and she has elderly dog at home that needs to be taken care of. She is hoping that she is going to get discharged and her son will take care of her. Objective Data Objective Data Vital Signs: Vital Signs Temp Pulse Resp BP Pulse Ox O2 Del Method 98.1 F 94 16 110/90 H 94 Room Air 03/02/25 11:00 03/02/25 11:00 03/02/25 11:00 03/02/25 11:00 03/02/25 11:00 03/02/25 11:00 Oxygen Delivery Method Room Air Weight: 66.8 kg Body Mass Index (BMI) 29.7 Intake & Output: Intake and Output for Last 24 Hours 02/28/25 03/01/25 03/02/25 23:59 23:59 23:59 Intake Total 2250 / 2250 1940 / 2060 2525 / 2525 Output Total 1900 / 2200 850 / 850 Balance 2250 / 1350 40 / -140 1675 / 1675 Medical Nutrition Assessment Dietitian: Malnutrition Criteria Met Start: 03/01/25 10:54 Freq: Status: Active Protocol: Document 03/01/25 10:56 RMA (Rec: 03/01/25 10:56 RMA [id number]) Nutrition Malnutrition Evidence of Yes Malnutrition Exists Malnutrition (severe Chronic ): Evidenced By Suboptimal Energy Intake (Severe),Weight Loss (Severe) Clinical Problem Chronic Disease or Condition Related Malnutrition Etiology severe protein-calorie malnutrition in the context of chronic disease and debility/failure to thrive related to altered GI function, N/V/D and inadequate energy/ oral intake Signs/Symptoms as evidenced by ~15-16% unintentional weight loss x 3 months and oral intake meeting less than 75% estimated nutrition needs x 3 months. Status Active Problem Recommendation Dietitian Will liberalize diet to regular/no added salt; Recommendations/ encourage PO at meals. Changes Will add 120mL ensure plus HP 3 times per day w/ medpass. Will add magic cup w/ lunch and dinner for tolerance. Monitor renal labs and need to further restrict diet if PO improves. Lab / Micro Data Attestation: I reviewed the patient's lab results. 03/02/25 05:10 03/02/25 05:10 Labs: Laboratory Results - last 24 hr 03/02/25 05:10: WBC 6.7, RBC 2.58 L, Hgb 7.7 L, Hct 23.6 L, MCV 91.5, MCH 29.8, MCHC 32.6, RDW Std Deviation 57.5 H, RDW Coeff of Mica 17.3 H, Plt Count 163, MPV 11.0, Immature Gran % (Auto) 0.300, Neut % (Auto) 69.0, Lymph % (Auto) 22.2, [place] % (Auto) 5.8, Eos % (Auto) 2.4, Baso % (Auto) 0.3, Absolute Neuts (auto) 4.6, Absolute Lymphs (auto) 1.48, Nucleated RBC % 0, Sodium 139, Potassium 3.0 L, Chloride 115 H, Carbon Dioxide 13.2 L, Anion Gap 11, BUN 29 H, Creatinine 2.39 H, Estim Creat Clear Calc 17.34 L, Est GFR (MDRD) Non-Af 21 L, BUN/Creatinine Ratio 12.3, Glucose 133 H, Calcium 6.8 L Micro: Microbiology 02/28/25 21:00 Urine, Random Urine Culture - Preliminary GNR 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 specialist Physical Exam Const alert and oriented x3 General Appearance: well developed and in distress Positive for other (Emotionally distressed) Orientation / Consciousness: oriented to person, oriented to place and oriented to time Nutritional Appearance: thin HEENT normocephalic Head and Scalp: atraumatic Neck no lymphadenopathy Resp no use of accessory muscles and clear to auscultation bilaterally Cardio regular rate and no rub GI non-tender and non-distended Auscultation: normoactive bowel sounds Palpation: soft Neuro Sensorium / Orientation: awake and alert Psych cooperative Assessment & Plan Assessment/Plan (1) CKD (chronic kidney disease) stage 4, GFR 15-29 ml/min: PLAN: Creatinine is back to baseline (2) SOO (acute kidney injury): PLAN: Due to prerenal azotemia, resolved (3) Metabolic acidosis: PLAN: Improved, but far from normal. Hypokalemia is difficult to control as bicarb IV causing shift of potassium intracellularly PLAN: Plan If patient agrees to stay, would continue with IV bicarb for 1 more day, replace potassium, check magnesium If patient would like to be discharged, she needs to go home on at least 1 week of potassium supplement plus oral bicarb.
[2025-03-03] MEDS: MELATONIN 3 MG TABLET PO (00:05)
[2025-03-03 03:00] VITALS: BP 135/68; PULSE 93; RESP 16; TEMP 36.6; O2SAT 98
[2025-03-03] MEDS: Sodium Bicarbonate 150 MEQ in Dextrose 5%-Water (1000mL Bag) 1,000 ML 100 MEQ IV (03:02)
[2025-03-03 05:40] VITALS: BMI 32.3
[2025-03-03] MEDS: Nystatin Ointment 1 APPLIC TOPICAL (06:13)
[2025-03-03 07:16] LABS: Hematocrit 22.3 % (37-47); Hemoglobin 7.1 g/dL (12.0-15.0); Immature Granulocytes Count 0.020 X10^3/uL (0.0-0.0); Mean Corp Hgb Conc 31.8 g/dL (32-36); Mean Corpuscular Volume 92.5 fL (81-99); Mean Platelet Vol. 9.9 fl (6.2-12.0); NRBC Flagged by Analyzer 0 % (0-5); Platelet Count 133 K/mm3 (150-450); RBC Distribution Width CV 17.8 % (11.6-14.6); RBC Distribution Width SD 58.5 fl (35.1-43.9); Red Blood Count 2.41 M/mm3 (4.2-5.4); White Blood Count 4.6 K/mm3 (4.4-11.0)
--- NOTE | 2025-03-03 09:07 | NURSING ---
Dr. Valentino in to see patient. Patient is sitting up in chair eating. reviewed labs states will see what potassium level as well as other levels and see if needs replaced . explained that hemoglobin dropped to 7.1 asked patient if she wanted a gi consult and scope to see where she is bleeding patient states she does not want a scope. Patient states all we want is test and tests they did a mri and cat scan and why didnt they find anything. explained that those tests does not show it. patient states she does not want a scope. said that is fine will check labs and if they are low will replace then possible discharge . Patient then saidyou threatening me if i dont do your tests your keeping me ' states we are not threatening you. I am checking your labs and will replace abnormals. asked nurse to call patient advocate since patient feels threatened
--- NOTE | 2025-03-03 09:30 | CASEMGMT ---
Social Work SW received call from pt's son Aashish and discussed pt care. Aashish is aware that pt is refusing SNF placement and plans to return home and Aashish is understanding of this. Aashish expressing frustration that pt is angry and treats her two children poorly when they are attempting to help her. Aashish inquiring about pt medical status and requesting his sister be updated. Aashish also inquiring about hospice care if pt is unwilling to accept medical care. [facility] explained hospice to Aashish. Family is willing to provide some help to pt if she is willing to accept it. SW spoke with Aashish about setting appropriate boundaries with pt as family states that pt is manipulative and difficult to deal with. SW to follow up with pt regarding goals of care and pt continuing with pts family caring for her at home. JOSEPH Wallace
[2025-03-03 09:45] VITALS: BP 123/57; PULSE 81; RESP 14; TEMP 36.6; O2SAT 100
[2025-03-03] MEDS: 0.9 % NaCl (Sterile) Posiflush 10 mL IV (09:48)
[2025-03-03] MEDS: Potassium Chloride Oral Soln 20 MEQ/15 ML UDC 40 MEQ PO (09:49)
[2025-03-03 10:26] LABS: AST(SGOT) 21 U/L (<=31); Alanine Aminotransfer ALT/SGPT 8 U/L (<=34); Albumin, Serum 2.0 g/dL (3.4-4.8); Alkaline Phosphatase 103 U/L (35-104); Anion Gap 9 (5-15); BUN 23 mg/dL (4-19); BUN/Creat Ratio 9.7 RATIO (10-20); Calcium,Total 6.9 mg/dL (7.6-11.0); Carbon Dioxide 20.0 mmol/L (21.0-32.0); Chloride 112 mmol/L (98-108); Estimated Creatinine Clearance 18.54 ml/min (50-250); Ferritin 740 ng/mL (22-378); Globulin 2.9 g/dL (2.2-4.2); Glucose 137 mg/dL (70-99); Potassium 3.7 mmol/L (3.3-5.1)
[2025-03-03 10:38] LABS: Iron 47 ug/dL (50-170); Iron Binding Capacity,Unsat < 17 ug/dL (228-428)
[2025-03-03] MEDS: Pantoprazole Sodium 40 MG in 0.9% Normal Saline (100mL MB+) 100 ML 300 MG IV (11:30)
--- NOTE | 2025-03-03 11:44 | PN_ITS ---
Subjective Subjective Patient seen and examined. She was eating breakfast. Patient's hemoglobin is 7.1 today. She denies any coffee-ground emesis or dark stools. I spoke patient with her nurse by her bedside. I again spoke to patient about the GI consult for EGD and colonoscopy but she refused these adamantly. I then explained to her that we would need to stop the Eliquis in light of the concern for GI bleed and anemia. She says she did not understand why she would have to stop this as she had been on it for 6 years. I explained that this is in light of her acute anemia and concern for GI bleed. I explained to patient that we are waiting her potassium levels and if it is low we will replace it. Patient at this point told the nurse and I that we were threatening her and refusing to send her home. Patient's nurse and I explained to patient that we were not threatening her and was simply providing her the best care. Patient advocate informed and PCU nursing home manager informed. Patient has remained hemodynamically stable. Objective Data Objective Data Vital Signs: Vital Signs Temp Pulse Resp BP Pulse Ox O2 Del Method 98 F 81 14 123/57 H 100 Room Air 03/03/25 09:45 03/03/25 09:45 03/03/25 09:45 03/03/25 09:45 03/03/25 09:45 03/03/25 09:45 Oxygen Delivery Method Room Air Weight: 159 lb 12.8 oz Body Mass Index (BMI) 32.3 Intake & Output: Intake and Output for Last 24 Hours 03/01/25 03/02/25 03/03/25 23:59 23:59 23:59 Intake Total 1940 / 0 3151.67 / 3251.67 2226.67 / 2226.67 Output Total 1900 / 2200 1350 / 1750 1200 / 1200 Balance 40 / -140 1801.67 / 1501.67 1026.67 / 1026.67 Medical Nutrition Assessment Dietitian: Malnutrition Criteria Met Start: 03/01/25 10:54 Freq: Status: Active Protocol: Document 03/01/25 10:56 RMA (Rec: 03/01/25 10:56 RMA [id number]) Nutrition Malnutrition Evidence of Yes Malnutrition Exists Malnutrition (severe Chronic ): Evidenced By Suboptimal Energy Intake (Severe),Weight Loss (Severe) Clinical Problem Chronic Disease or Condition Related Malnutrition Etiology severe protein-calorie malnutrition in the context of chronic disease and debility/failure to thrive related to altered GI function, N/V/D and inadequate energy/ oral intake Signs/Symptoms as evidenced by ~15-16% unintentional weight loss x 3 months and oral intake meeting less than 75% estimated nutrition needs x 3 months. Status Active Problem Recommendation Dietitian Will liberalize diet to regular/no added salt; Recommendations/ encourage PO at meals. Changes Will add 120mL ensure plus HP 3 times per day w/ medpass. Will add magic cup w/ lunch and dinner for tolerance. Monitor renal labs and need to further restrict diet if PO improves. Lab / Micro Data 03/03/25 06:50 03/03/25 09:42 Labs: Laboratory Results - last 24 hr 03/03/25 06:50: WBC 4.6, RBC 2.41 L, Hgb 7.1 L, Hct 22.3 L, MCV 92.5, MCH 29.5, MCHC 31.8 L, RDW Std Deviation 58.5 H, RDW Coeff of Mica 17.8 H, Plt Count 133 L, MPV 9.9, Immature Gran % (Auto) 0.400, Neut % (Auto) 54.1, Lymph % (Auto) 34.8, [place] % (Auto) 5.6, Eos % (Auto) 4.5, Baso % (Auto) 0.6, Absolute Neuts (auto) 2.5, Absolute Lymphs (auto) 1.61, Nucleated RBC % 0 03/03/25 09:42: Sodium 140, Potassium 3.7, Chloride 112 H, Carbon Dioxide 20.0 L , Anion Gap 9, BUN 23 H, Creatinine 2.33 H, Estim Creat Clear Calc 18.54 L, Est GFR (MDRD) Non-Af 21 L, BUN/Creatinine Ratio 9.7 L, Glucose 137 H, Calcium 6.9 L , Iron 47 L, TIBC TNP, Iron Saturation TNP, Unsaturated IBC < 17 L, Ferritin 740 H, Total Bilirubin 0.32, AST 21, ALT 8, Alkaline Phosphatase 103, Total Protein 5.0 L, Albumin 2.0 L, Globulin 2.9, Albumin/Globulin Ratio 0.7 L Micro: Microbiology 02/28/25 16:05 Blood Culture (Wb) - Port Blood Culture - Preliminary No growth in 48 hours. 02/28/25 16:05 Blood Culture (Wb) - Port Blood Culture - Preliminary No growth in 48 hours. 02/28/25 21:00 Urine, Random Urine Culture - Final Mixed Gram Pos & Gram Neg Org Physical Exam Const alert, oriented x3, no apparent distress and average body habitus Constitutional Narrative: not cooperative HEENT normocephalic, head/scalp atraumatic, hearing grossly normal bilaterally, nasal mucous membranes and turbinates normal and oropharynx normal Eyes PERRL, EOMs intact bilaterally and conjunctivae normal Neck full ROM, no lymphadenopathy, supple and no JVD Lymph Lymphatic: no lymphedema noted Chest inspection of chest normal Resp normal respiratory effort, normal air movement, no use of accessory muscles and clear to auscultation bilaterally Cardio regular rate, regular rhythm, S1 normal heart sound, S2 normal heart sound, no murmurs and peripheral pulses 2+ throughout GI normal to inspection, nondistended, normoactive bowel sounds, soft to palpation, non-tender and non-distended GI Narrative: ileal conduit in situ. Back/Spine normal ROM Extremity normal to inspection, full ROM, normal capillary refill, no clubbing, cyanosis or edema, no calf tenderness and no pedal edema General Extremity: no tenderness to palpation of joints or extremities Skin General Skin Exam: no breakdown Neuro CN's II-XII intact bilaterally, moves all extremities, no focal motor deficits and no sensory deficits noted Sensorium / Orientation: oriented to person and oriented to place Speech: speech normal Motor Exam: general weakness Psych Psych Narrative: alert but not very cooperative with care Attitude: agitated Assessment & Plan Assessment/Plan (1) Adult failure to thrive: (2) Nausea vomiting and diarrhea: PLAN: Plan #Adult failure to thrive with cognitive impairment * patient alert and communicative. She is alert and oriented x 3 but refusing care. * has been having nausea, vomiting and diarrhea at home with decreaesd PO intake, and worsening weakness and falls. * adult protective services planning to go to her house 03/01/2025. * PT/OT On board * case management to help with placement * #CKD IV with metabolic acidosis * Cr is at baseline. * nephrology on board. Management as per nephrology * #Hypokalemia, hypomagnesemia and hypocalcemia * will replace aggressively and trend.p potassium is better today at 3.7, and calcium is 6.9. Will replace and trend * #Acute on chronic anemia in the setting fo CKD IV and iron deficiency anemia * Hb today is down to 7.1 from 7.7 yesterday. She has received 2 units of PRBCs. * still refusing GI consult and does not want EGD or colonoscopy. * denies any dark stools or coffee ground emesis. * iron profile showed low iron deficiency anemia with iron level of 23, iron saturation of 41.8 and ferritin of 549. * doesnt want GI consult as she doesnt want EGD or colonoscopy. * IV pantoprazole 40mg bid * #Acute gastroenteritis: resolving. Nausea, vomiting and diarrhea has resolved. #History of bladder cancer: s/p cystectomy with conduit and neoadjuvant chemotherapy. Follow up with oncology on outpatient basis. #HFrEF: * not in exacerbation. has known EF of 45% with mild global hypokinesia and and left ventricular and stage 1 diastolic dysfunction. #History of DVT: on eliquis 2.5mg bid. Dose adjusted due to kidney function. Eliquis held due to anemia. #COPD: on rooom air. Breathing treatment with bronchodilators #DVT prophylaxis: SCDs Disposition: anticipate dc over the next 1-2 weeks. Charges/Coding Visit Charges Inpatient E&M: 58130 Subs Hosp L2
[2025-03-03] MEDS: Calcium Gluconate IV 2 GM in 0.9% Normal Saline (100mL Bag) 100 ML IV (12:05)
--- NOTE | 2025-03-03 12:22 | PN.RENAL_ITS ---
Subjective Subjective Follow-up on acute kidney injury, advanced CKD. She is doing a little bit better, oral intake is improved, she is less upset. Objective Data Objective Data Vital Signs: Vital Signs Temp Pulse Resp BP Pulse Ox O2 Del Method 98 F 81 14 123/57 H 100 Room Air 03/03/25 09:45 03/03/25 09:45 03/03/25 09:45 03/03/25 09:45 03/03/25 09:45 03/03/25 09:45 Oxygen Delivery Method Room Air Weight: 72.484 kg Body Mass Index (BMI) 32.3 Intake & Output: Intake and Output for Last 24 Hours 03/01/25 03/02/25 03/03/25 23:59 23:59 23:59 Intake Total 1940 / 0 3151.67 / 3251.67 2326.67 / 2326.67 Output Total 1900 / 2200 1350 / 1750 1200 / 1200 Balance 40 / -140 1801.67 / 1501.67 1126.67 / 1126.67 Medical Nutrition Assessment Dietitian: Malnutrition Criteria Met Start: 03/01/25 10:54 Freq: Status: Active Protocol: Document 03/01/25 10:56 RMA (Rec: 03/01/25 10:56 RMA [id number]) Nutrition Malnutrition Evidence of Yes Malnutrition Exists Malnutrition (severe Chronic ): Evidenced By Suboptimal Energy Intake (Severe),Weight Loss (Severe) Clinical Problem Chronic Disease or Condition Related Malnutrition Etiology severe protein-calorie malnutrition in the context of chronic disease and debility/failure to thrive related to altered GI function, N/V/D and inadequate energy/ oral intake Signs/Symptoms as evidenced by ~15-16% unintentional weight loss x 3 months and oral intake meeting less than 75% estimated nutrition needs x 3 months. Status Active Problem Recommendation Dietitian Will liberalize diet to regular/no added salt; Recommendations/ encourage PO at meals. Changes Will add 120mL ensure plus HP 3 times per day w/ medpass. Will add magic cup w/ lunch and dinner for tolerance. Monitor renal labs and need to further restrict diet if PO improves. Lab / Micro Data Attestation: I reviewed the patient's lab results. 03/03/25 06:50 03/03/25 09:42 Labs: Laboratory Results - last 24 hr 03/03/25 06:50: WBC 4.6, RBC 2.41 L, Hgb 7.1 L, Hct 22.3 L, MCV 92.5, MCH 29.5, MCHC 31.8 L, RDW Std Deviation 58.5 H, RDW Coeff of Mica 17.8 H, Plt Count 133 L, MPV 9.9, Immature Gran % (Auto) 0.400, Neut % (Auto) 54.1, Lymph % (Auto) 34.8, [place] % (Auto) 5.6, Eos % (Auto) 4.5, Baso % (Auto) 0.6, Absolute Neuts (auto) 2.5, Absolute Lymphs (auto) 1.61, Nucleated RBC % 0 03/03/25 09:42: Sodium 140, Potassium 3.7, Chloride 112 H, Carbon Dioxide 20.0 L , Anion Gap 9, BUN 23 H, Creatinine 2.33 H, Estim Creat Clear Calc 18.54 L, Est GFR (MDRD) Non-Af 21 L, BUN/Creatinine Ratio 9.7 L, Glucose 137 H, Calcium 6.9 L , Iron 47 L, TIBC TNP, Iron Saturation TNP, Unsaturated IBC < 17 L, Ferritin 740 H, Total Bilirubin 0.32, AST 21, ALT 8, Alkaline Phosphatase 103, Total Protein 5.0 L, Albumin 2.0 L, Globulin 2.9, Albumin/Globulin Ratio 0.7 L Micro: Microbiology 02/28/25 16:05 Blood Culture (Wb) - Port Blood Culture - Preliminary No growth in 48 hours. 02/28/25 16:05 Blood Culture (Wb) - Port Blood Culture - Preliminary No growth in 48 hours. 02/28/25 21:00 Urine, Random Urine Culture - Final Mixed Gram Pos & Gram Neg Org Physical Exam Const alert, no apparent distress and average body habitus Orientation / Consciousness: oriented to person and oriented to place HEENT normocephalic Head and Scalp: atraumatic Neck no lymphadenopathy Resp no use of accessory muscles and clear to auscultation bilaterally GI non-tender and non-distended Auscultation: normoactive bowel sounds Neuro Sensorium / Orientation: awake and alert Psych cooperative Assessment & Plan Assessment/Plan (1) CKD (chronic kidney disease) stage 4, GFR 15-29 ml/min: PLAN: Creatinine is back to baseline (2) SOO (acute kidney injury): PLAN: Creatinine is back to baseline (3) Metabolic acidosis: PLAN: Improving, most likely will need bicarb supplement when she goes home
--- NOTE | 2025-03-03 13:50 | CASEMGMT ---
Social Work SW met with pt to discuss discharge plan. Pt is willing to talk to pt. Pt is upset because she received call from her landlord that pt dog while she was in the hospital. Pt is tearful and upset. Emotional support provided. Pt has been refusing recommendations of physician for GI follow up and voicing that she is upset that hospital staff are treating pt's illness. SW educated pt that when someone comes to the hospital, it is for medical treatment. Pt stating that she is tired and states she does not like all the appointments and the treatments. SW spoke with pt regarding goals of care and explained hospice philosophy vs seeking active medical care. After discussion, pt stating that she would like to speak with hospice but does not want her children involved in decision making regarding this. Pt continues to plan to return home at time of discharge. Per pt dgt, pt will need a wheelchair and walker at home. DME ordered through [employer] and delivered to pt room. RN notified physician of pt's request for hospice consultation. [facility] will notify APS and [facility] at time of discharge. JOSEPH Jessica
--- NOTE | 2025-03-03 14:24 | DCINST_ITS ---
Discharge Instructions DC O2, CPAP, BIPAP needs Home O2 Discharge instructions: No Dressing / Incision Discharge Activity: Return to Normal Activity Weight Bearing Status: Weight bearing as tolerated Dressing / Incision Call your doctor if you observe: Fever of 101 or Higher, Shortness of breath, Dizziness and Swelling in the ankles Follow Up Care Test Results: Test results from this visit will be discussed in further detail at your follow- up appointment, if applicable. Discharge Plan Admission Admit Date/Time: 02/28/25 18:45 Primary Reason for Your Visit: acute on chronic anemia, failure to thrive, CKD IV Attending Provider: Fartun Valentino Primary Care Provider: José Miguel Guajardo Consulting Providers: Lucy Zepeda; Jelani Dias Instructions Patient Instructions: Anemia, Aging and Nutrition Problems, Hypocalcemia Dc, Hypokalemia Dc, ED Hypocalcemia (Adult) Discharge Orders/Prescriptions Prescriptions: New sodium bicarbonate 650 mg tablet 650 mg PO BID Qty: 60 2RF potassium chloride [Klor-Con M20] 20 mEq tablet,ER particles/crystals 20 meq PO DAILY Qty: 7 0RF Continued ondansetron HCl 4 mg tablet 4 mg PO DAILY Patient Comments: take 1 tablet by mouth every 8 hours dextroamphetamine sulfate 10 mg tablet 20 mg PO QDAY pantoprazole 40 mg tablet,delayed release (DR/EC) 40 mg PO DAILY Patient Comments: take 1 tablet by mouth daily nystatin 100,000 unit/gram cream 1 applic topical ONCE Qty: 30 4RF Combivent Respimat 20-100 mcg/actuation mist 1 puff inhalation BID polysaccharide iron complex [Ferrex 150] 150 mg iron capsule 350 mg PO BID albuterol sulfate 90 mcg/actuation HFA aerosol inhaler 2 puff inhalation Q6 PRN (Reason: wheezing) furosemide 20 mg tablet 20 mg PO DAILY Rx Instructions: pt states takes prn Discontinued apixaban 5 mg tablet 5 mg PO DAILY Referrals / Follow Up: José Miguel Guajardo DO [Primary Care Provider] - Within 1 Week Aure Larios MD [Med Staff - Active Staff] - Within 1 Week Disposition Disposition (needs filled in before D/C Order can be placed): Hospice in Home
--- NOTE | 2025-03-03 14:25 | DS.PCM_ITS ---
Providers Date of Admission: 02/28/25 Date of Discharge: 03/03/25 Primary Care Physician: Dr. José Miguel Guajardo, DO Consultations 02/28/25 20:20 Consult: Nephrology Routine Consulting Provider: Lucy Zepeda Reason for Consult: CKD4-5 w/ worsening metabolic acidosis EMERGENT Consult: No MD Notified: Yes Date Notified: 03/01/25 Time Notified: 00:39 Method of Notification: Answering Service Reason For Visit: 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, CKD4-5 W/ WORSENING Diagnosis Discharge Diagnosis (1) CKD (chronic kidney disease) stage 4, GFR 15-29 ml/min: Status: Chronic Code(s): N18.4 - Chronic kidney disease, stage 4 (severe) (2) SOO (acute kidney injury): Status: Acute Code(s): N17.9 - Acute kidney failure, unspecified (3) Metabolic acidosis: Status: Acute Code(s): E87.20 - Acidosis, unspecified Plan #Adult failure to thrive with cognitive impairment * patient alert and communicative. She is alert and oriented x 3 but refusing care. * has been having nausea, vomiting and diarrhea at home with decreaesd PO intake, and worsening weakness and falls. * adult protective services planning to go to her house 03/01/2025. * PT/OT On board * case management to help with placement * #CKD IV with metabolic acidosis * Cr is at baseline. * nephrology on board. Management as per nephrology * #Hypokalemia, hypomagnesemia and hypocalcemia * will replace aggressively and trend.p potassium is better today at 3.7, and calcium is 6.9. Will replace and trend * #Acute on chronic anemia in the setting fo CKD IV and iron deficiency anemia * Hb today is down to 7.1 from 7.7 yesterday. She has received 2 units of PRBCs. * still refusing GI consult and does not want EGD or colonoscopy. * denies any dark stools or coffee ground emesis. * iron profile showed low iron deficiency anemia with iron level of 23, iron saturation of 41.8 and ferritin of 549. * doesnt want GI consult as she doesnt want EGD or colonoscopy. * IV pantoprazole 40mg bid * #Acute gastroenteritis: resolving. Nausea, vomiting and diarrhea has resolved. #History of bladder cancer: s/p cystectomy with conduit and neoadjuvant chemotherapy. Follow up with oncology on outpatient basis. #HFrEF: * not in exacerbation. has known EF of 45% with mild global hypokinesia and and left ventricular and stage 1 diastolic dysfunction. #History of DVT: on eliquis 2.5mg bid. Dose adjusted due to kidney function. Eliquis held due to anemia. #COPD: on rooom air. Breathing treatment with bronchodilators #DVT prophylaxis: SCDs Disposition: anticipate dc over the next 1-2 weeks. Medications at Discharge Home Medications ondansetron HCl 4 mg tablet 4 mg PO DAILY 09/10/21 pantoprazole 40 mg tablet,delayed release 40 mg PO DAILY 01/18/22 nystatin 100,000 unit/gram topical cream 1 applic topical ONCE #30 grams 05/06/22 ipratropium 20 mcg-albuterol 100 mcg/actuation mist for inhalation (Combivent Respimat) 1 puff inhalation BID 02/14/23 polysaccharide iron complex 150 mg iron capsule (Ferrex) 350 mg PO BID 02/14/23 albuterol sulfate 90 mcg/actuation aerosol inhaler 2 puff inhalation Q6 PRN wheezing 11/15/24 dextroamphetamine sulfate 10 mg tablet 20 mg PO QDAY Narcolepsy 11/15/24 furosemide 20 mg tablet 20 mg PO DAILY 02/28/25 potassium chloride 20 mEq tablet,extended release(part/cryst) (Klor-Con M) 20 meq PO DAILY #7 tabs 03/03/25 sodium bicarbonate 650 mg tablet 650 mg PO BID #60 tabs 03/03/25 Hospital Course Operations None Procedures None Summary of Care Provided Minutes Spent on Discharge: 45 Hospital Course: Patient is a 74 y/o F with a PMH as outlined who was admitted via the ED ON 03/03/2025 with a complaint of adult failure to thrive. She had a past medical history significant for bladder cancer s/p cystectomy with ileal conduit and neoadjuvant chemotherapy as well as a Kd stage IV and chronic anemia due to iron deficiency. She lives at home alone. Patient had been doing very poorly and had persistent nausea and vomiting and diarrhea as well as worsening weakness and falls. She had not been caring for herself at home. Her daughter was her medical power of litigation attorney. She had essentially been unable to care for herself at home and Adult Protective Services had contacted. She saw her oncologist on the day of admission and she was noted to have hemoglobin of 7 with sodium of 136, potassium of 2.7 and creatinine of 2.74, magnesium of 1.3 and calcium of 6.7. Due to her dehydration and debility as well as electrolyte abnormalities she was sent to the ED for admission. When she came into the ED patient was lacking decision-making capacity and so a medical hold was placed and she was admitted to be managed for hypokalemia, hypocalcemia and hypomagnesemia as well as acute on chronic anemia and debility with failure to thrive. Electrolytes were aggressively replaced. Nephrology was consulted in light of the kidney impairment and metabolic acidosis. She was placed on bicarb. Patient required 2 units of packed red blood cells during this admission due to acute on chronic anemia. Patient however refused GI consult and says she did not want EGD or colonoscopy. Her Eliquis was held. Patient was not very cooperative with her care during his stay and says she did not want any further testing or any further workup and just wanted to be discharged home. I had broached hospice with her but patient was not interested in this but subsequently had and I spoke to them patient was interested in hospice. Her electrolyte abnormalities corrected with aggressive replacement. I spoke to patient's daughter Apryl Sanchez at [phone]. Patient's daughter was concerned about patient's refusal of care at home. She said he had been taking care of her mother since she had her bladder cancer and patient had not shown a willingness to be cooperative with her care. Patient's daughter said she was her primary caregiver but patient would not even partake in her own care and unless her daughter changed her urine back she could leave the bag on and be soaked in urine and to remain in her clothes. Daughter expressed frustration with the fact that patient was not cooperating with her care. I explained to daughter that her mother had agency and was alert and oriented and cooperative and able to make decisions for herself. So even though she may not agree with her mother's refusal to cooperate with care she had to respect that decision and her state to us as power of litigation attorney would only come in if patient was debilitated and not of sound mind to make her own decisions. Daughter was agreeable to this and said she had tried to contact Adult Protective Services to be involved in her mother's care. I explained to her that Adult Protective Services would only evaluate patient when she was back in her home environment. I explained to her that her mother was now finally agreeable to hospice so she will be sent home with a referral to hospice. Patient hemoglobin was 7.1 on day of discharge. She refused any blood transfusion and was discharged on 03/03/2025. She was discharged with a referral to home hospice. She was discharged on p.o. bicarbonate and p.o. potassium for 1 week. She is to follow- up with her primary care doctor and follow-up with nephrology on outpatient basis. Patient seen and examined on the day of discharge. I saw her with her nurse by her bedside. Patient was not happy because she wanted to be discharged home and not cooperating with her care. When I explained to patient that we were waiting for her potassium levels to come back patient stated that she was being threatened and were keeping her in the hospital and not discharging her. Her nurse and I explained to patient that nobody was threatening her and were simply telling her that we were waiting for her potassium and other electrolyte results to come back. Patient advocate informed. Labs and vitals reviewed. Home medication reviewed and reconciled. Physical Exam Const alert, oriented x3, no apparent distress and average body habitus Constitutional Narrative: not cooperative General Appearance: cooperative and comfortable Orientation / Consciousness: awake HEENT normocephalic, head/scalp atraumatic, hearing grossly normal bilaterally, nasal mucous membranes and turbinates normal and oropharynx normal Mouth: oral and palatal mucosa normal Eyes PERRL, EOMs intact bilaterally and conjunctivae normal Neck full ROM, no lymphadenopathy, supple and no JVD Lymph Lymphatic: no lymphedema noted Chest inspection of chest normal Resp normal respiratory effort, normal air movement, no use of accessory muscles and clear to auscultation bilaterally Cardio regular rate, regular rhythm, S1 normal heart sound, S2 normal heart sound, no murmurs and peripheral pulses 2+ throughout GI normal to inspection, nondistended, normoactive bowel sounds, soft to palpation, non-tender and non-distended GI Narrative: ileal conduit in situ. Back/Spine normal ROM Extremity normal to inspection, full ROM, normal capillary refill, no clubbing, cyanosis or edema, no calf tenderness and no pedal edema General Extremity: no tenderness to palpation of joints or extremities Skin no rashes or lesions noted General Skin Exam: no breakdown Neuro oriented x3, CN's II-XII intact bilaterally, moves all extremities, no focal motor deficits and no sensory deficits noted Sensorium / Orientation: awake, alert, oriented to person and oriented to place Speech: speech normal Motor Exam: general weakness Psych Psych Narrative: alert but not very cooperative with care Attitude: agitated Medical Records Data Medical Nutrition Assessment Dietitian: Malnutrition Criteria Met Start: 03/01/25 10:54 Freq: Status: Active Protocol: Document 03/01/25 10:56 RMA (Rec: 03/01/25 10:56 RMA [id number]) Nutrition Malnutrition Evidence of Yes Malnutrition Exists Malnutrition (severe Chronic ): Evidenced By Suboptimal Energy Intake (Severe),Weight Loss (Severe) Clinical Problem Chronic Disease or Condition Related Malnutrition Etiology severe protein-calorie malnutrition in the context of chronic disease and debility/failure to thrive related to altered GI function, N/V/D and inadequate energy/ oral intake Signs/Symptoms as evidenced by ~15-16% unintentional weight loss x 3 months and oral intake meeting less than 75% estimated nutrition needs x 3 months. Status Active Problem Recommendation Dietitian Will liberalize diet to regular/no added salt; Recommendations/ encourage PO at meals. Changes Will add 120mL ensure plus HP 3 times per day w/ medpass. Will add magic cup w/ lunch and dinner for tolerance. Monitor renal labs and need to further restrict diet if PO improves. Weight / BMI Weight Weight: 159 lb 12.8 oz Body Mass Index (BMI) 32.3 ABG / Lab / Microbiology Data 03/03/25 06:50 03/03/25 09:42 Laboratory: Laboratory Results - last 24 hr 03/03/25 06:50: WBC 4.6, RBC 2.41 L, Hgb 7.1 L, Hct 22.3 L, MCV 92.5, MCH 29.5, MCHC 31.8 L, RDW Std Deviation 58.5 H, RDW Coeff of Mica 17.8 H, Plt Count 133 L, MPV 9.9, Immature Gran % (Auto) 0.400, Neut % (Auto) 54.1, Lymph % (Auto) 34.8, [place] % (Auto) 5.6, Eos % (Auto) 4.5, Baso % (Auto) 0.6, Absolute Neuts (auto) 2.5, Absolute Lymphs (auto) 1.61, Nucleated RBC % 0 03/03/25 09:42: Sodium 140, Potassium 3.7, Chloride 112 H, Carbon Dioxide 20.0 L , Anion Gap 9, BUN 23 H, Creatinine 2.33 H, Estim Creat Clear Calc 18.54 L, Est GFR (MDRD) Non-Af 21 L, BUN/Creatinine Ratio 9.7 L, Glucose 137 H, Calcium 6.9 L , Iron 47 L, TIBC TNP, Iron Saturation TNP, Unsaturated IBC < 17 L, Ferritin 740 H, Total Bilirubin 0.32, AST 21, ALT 8, Alkaline Phosphatase 103, Total Protein 5.0 L, Albumin 2.0 L, Globulin 2.9, Albumin/Globulin Ratio 0.7 L Microbiology: Microbiology 02/28/25 16:05 Blood Culture (Wb) - Port Blood Culture - Preliminary No growth in 48 hours. 02/28/25 16:05 Blood Culture (Wb) - Port Blood Culture - Preliminary No growth in 48 hours. 02/28/25 21:00 Urine, Random Urine Culture - Final Mixed Gram Pos & Gram Neg Org D/C Instructions Discharge Activity: Return to Normal Activity Weight Bearing Status: Weight bearing as tolerated Call your doctor if you observe: Fever of 101 or Higher, Shortness of breath, Dizziness and Swelling in the ankles DC O2, CPAP, BIPAP Needs Home O2 Discharge instructions: No DC home with Oxygen: No Meaningful Use Info Meaningful Use Meaningful Use Diagnoses (Choose all that apply): None applicable Discharge Plan Admission Admit Date/Time: 02/28/25 18:45 Primary Reason for Your Visit: acute on chronic anemia, failure to thrive, CKD IV Attending Provider: Fartun Valentino Primary Care Provider: José Miguel Guajardo Consulting Providers: Lucy Zepeda; Jelani Dias Instructions Patient Instructions: Anemia, Aging and Nutrition Problems, Hypocalcemia Dc, Hypokalemia Dc, ED Hypocalcemia (Adult) Discharge Orders/Prescriptions Prescriptions: New sodium bicarbonate 650 mg tablet 650 mg PO BID Qty: 60 2RF potassium chloride [Klor-Con M20] 20 mEq tablet,ER particles/crystals 20 meq PO DAILY Qty: 7 0RF Continued ondansetron HCl 4 mg tablet 4 mg PO DAILY Patient Comments: take 1 tablet by mouth every 8 hours dextroamphetamine sulfate 10 mg tablet 20 mg PO QDAY pantoprazole 40 mg tablet,delayed release (DR/EC) 40 mg PO DAILY Patient Comments: take 1 tablet by mouth daily nystatin 100,000 unit/gram cream 1 applic topical ONCE Qty: 30 4RF Combivent Respimat 20-100 mcg/actuation mist 1 puff inhalation BID polysaccharide iron complex [Ferrex 150] 150 mg iron capsule 350 mg PO BID albuterol sulfate 90 mcg/actuation HFA aerosol inhaler 2 puff inhalation Q6 PRN (Reason: wheezing) furosemide 20 mg tablet 20 mg PO DAILY Rx Instructions: pt states takes prn Discontinued apixaban 5 mg tablet 5 mg PO DAILY Referrals / Follow Up: José Miguel Guajardo DO [Primary Care Provider] - 03/07/25 1:00 pm Aure Larios MD [Med Staff - Active Staff] - Within 1 Week Disposition Disposition (needs filled in before D/C Order can be placed): Hospice in Home Charges/Coding Visit Charges Inpatient E&M: 93268 Disch Hosp >30min
[2025-03-03 14:41] VITALS: BP 121/51; PULSE 83; RESP 14; TEMP 37.2; O2SAT 100
[2025-03-03] MEDS: 0.9% Saline Lock 10 ML Syringe IV (14:43)
--- NOTE | 2025-03-03 15:10 | NURSING ---
patient called step son to pick her up not son listed. called daughter to reviewed dc instructions upset patient made choice to call him instead of her brother or her. states patient has no one to stay with her the step son does not help her.
--- NOTE | 2025-03-03 15:34 | CASEMGMT ---
Social Work Wheelchair and Walker [facility] Pt ready for discharge home. Physician agreeable to hospice referral. CUAUHTEMOC faxed clinicals and called [facility] with referral. CUAUHTEMOC spoke with pt minnie Zendejas on phone and notified of dc and referral to hospice. Phone call to Adult Protective Services and referral made. [employer] call to [facility] Bridgette Rodriguez and notified of pt discharge. Discharge papers faxed. JOSEPH Simpson
--- NOTE | 2025-03-03 16:26 | NURSING ---
Daughter called back and patient was also on phone. Patient states that no one talked to her about a scope. This nurse explained to patient and daughter that this nurse was with patient x 2 days and was present when md asked patient to do a gi consult for low hgb to check for gi bleed and possible do a scope. Patient refused both days. Daughter states that she went to her mothers home and her mother cussed her out and told her to leave and not come back. Now patient is calling her asking for help with her ostomy bag. Patient states she was waiting for over an hour to leave with her son. Explained to patient that she called her son and had him come with out any discharge order and that when son arrived this nurse spoke with him outside the room and stated that we did not have a dc order yet. They than began to bicker between themselves daughter thanked this nurse and they hung up.
== END 2025-03-03 15:03 | disposition hospice, home (50) | DRG 640 ==
LOC: ED 18:54 → PCU 19:10
PROVIDERS: Nurse Practitioner Adult Health; Admitting Provider Hospitalist; Emergency Provider Emergency Medicine; PCP Family Medicine; Visit Provider Student in an Organized Health Care Education/Training Program
DX: R62.7 Adult failure to thrive (principal); E43 Unspecified severe protein-calorie malnutrition; E87.20 Acidosis, unspecified; I13.0 Hypertensive heart and chronic kidney disease with heart failure and stage 1 through stage 4 chronic kidney disease, or unspecified chronic kidney disease; N18.4 Chronic kidney disease, stage 4 (severe); I50.22 Chronic systolic (congestive) heart failure; D63.1 Anemia in chronic kidney disease; E83.51 Hypocalcemia; Z66 Do not resuscitate; J44.9 Chronic obstructive pulmonary disease, unspecified; D50.9 Iron deficiency anemia, unspecified; F17.200 Nicotine dependence, unspecified, uncomplicated; K21.9 Gastro-esophageal reflux disease without esophagitis; E87.6 Hypokalemia; E83.42 Hypomagnesemia; K52.9 Noninfective gastroenteritis and colitis, unspecified; Z79.899 Other long term (current) drug therapy; Z86.718 Personal history of other venous thrombosis and embolism; Z79.51 Long term (current) use of inhaled steroids; Z68.29 Body mass index [BMI] 29.0-29.9, adult
CPT/HCPCS: 36591; 80048; 80053; 81001; 82728; 83540; 83550; 83605; 83735; 84100; 85025; 85027; 85610; 85730; 86850; 86900; 86901; 87040; 87077; 87086; 87088; 93005; 94640; 97162; 97165; 97530; 97535; 97802; 99284; P9016; A4216; J0612